=== PATIENT | female | born 1960 | race African-American/Black ===

== ENCOUNTER 2016-12-16 12:57 | Inpatient (IN) | payer OTHER ==
[2016-12-16 13:04] VITALS: BMI 31.1
--- NOTE | 2016-12-16 13:46 | PDOC ---
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 The patient has had unsteady gait and has been forgetful, which prompted the MRI. The MRI showed mass effect. The patient reports she has been recently falling. The patient has no complaints. She denies current headache, dizziness, abdominal pain, nausea, vomiting. She denies chest pain, SOB. Patient is currently undergoing chemotherapy, and her last dose was this morning. PCP: Dr. Bakari Pool Oncologist: Dr. Gerson Kiser <Cristel Salcedo - Last Filed: 12/16/16 15:14> <Geoff Bains - Last Filed: 12/16/16 15:31> - General Chief Complaint: Revisit,Radiology Variance Stated Complaint: PCP SENT Time Seen by Provider: 12/16/16 13:32 Past History <Cristel Salcedo - Last Filed: 12/16/16 15:14> - Past Medical History Anemia: Yes Asthma: No Cancer: Yes (BREAST/Brain) Cardiac Disorders: No CVA: No COPD: No CHF: No Dementia: No Diabetes: Yes GI Disorders: No Disorders: No HTN: Yes Hypercholesterolemia: No Liver Disease: No Seizures: Yes Thyroid Disease: No - Surgical History Abdominal Surgery: No Appendectomy: No Cardiac Surgery: No Cholecystectomy: No Lung Surgery: No Neurologic Surgery: Yes (brain tumor) Orthopedic Surgery: No - Immunization History Immunization Up to Date: Yes - Psycho/Social/Smoking Cessation Hx Anxiety: No Suicidal Ideation: No Smoking Status: No Smoking History: Never smoked Have you smoked in the past 12 months: No Number of Cigarettes Smoked Daily: 0 Hx Alcohol Use: No Drug/Substance Use Hx: No Substance Use Type: None Hx Substance Use Treatment: No <Geoff Bains - Last Filed: 12/16/16 15:31> - Past Medical History Allergies/Adverse Reactions: Allergies Allergy/AdvReac Type Severity Reaction Status Date / Time oxycodone HCl [From Percocet] Allergy Verified 12/16/16 13:00 Home Medications: Ambulatory Orders Losartan/Hydrochlorothiazide [Losartan-Hctz 100-25 mg Tab] 1 each PO DAILY 03/13 Levetiracetam [Keppra -] 750 mg PO BID 07/10/15 Acetaminophen [Tylenol -] 650 mg PO Q6H #30 tablet 03/22/16 Dexamethasone [Decadron -] 4 mg PO BID #30 tablet 03/22/16 Ferrous Sulfate 325 mg PO BID 03/22/16 Metformin HCl 500 mg PO BID 03/22/16 Omeprazole 20 mg PO DAILY 03/22/16 Review of Systems - Review of Systems Able to Perform ROS?: Yes Comments:: 12/16/16 13:53 GENERAL/CONSTITUTIONAL: No fever or chills. No weakness. HEAD, EYES, EARS, NOSE AND THROAT: No change in vision. No ear pain or discharge. No sore throat. CARDIOVASCULAR: No chest pain or shortness of breath. RESPIRATORY: No cough, wheezing, or hemoptysis. GASTROINTESTINAL: No nausea, vomiting, diarrhea or constipation. GENITOURINARY: No dysuria, frequency, or change in urination. MUSCULOSKELETAL: No joint or muscle swelling or pain. No neck or back pain. SKIN: No rash NEUROLOGIC: (+) recent falls. No headache, vertigo, loss of consciousness, or change in strength/sensation. ENDOCRINE: No increased thirst. No abnormal weight change. HEMATOLOGIC/LYMPHATIC: No anemia, easy bleeding, or history of blood clots. ALLERGIC/IMMUNOLOGIC: No hives or skin allergy. <Cristel Salcedo - Last Filed: 12/16/16 15:14> *Physical Exam - Vital Signs Last Vital Signs Temp Pulse Resp BP Pulse Ox 98.1 F 60 19 116/71 96 12/16/16 13:00 12/16/16 13:00 12/16/16 13:00 12/16/16 13:00 12/16/16 13:00 - Physical Exam Comments: 12/16/16 13:53 GENERAL: Awake, alert, and fully oriented, in no acute distress HEAD: No signs of trauma EYES: PERRLA, EOMI, sclera anicteric, conjunctiva clear ENT: Auricles normal inspection, hearing grossly normal, nares patent, oropharynx clear without exudates. Moist mucosa NECK: Normal ROM, supple, no lymphadenopathy, JVD, or masses LUNGS: Breath sounds equal, clear to auscultation bilaterally. No wheezes, and no crackles HEART: Regular rate and rhythm, normal S1 and S2, no murmurs, rubs or gallops ABDOMEN: Soft, nontender, normoactive bowel sounds. No guarding, no rebound. No masses EXTREMITIES: Normal range of motion, no edema. No clubbing or cyanosis. No cords, erythema, or tenderness NEUROLOGICAL: Cranial nerves II through XII grossly intact. Normal speech, unsteady gait. Dysmetria and dysdiadochokinesia. SKIN: Warm, Dry, normal turgor, no rashes or lesions noted. <Cristel Salcedo A - Last Filed: 12/16/16 15:14> - Vital Signs Last Vital Signs Temp Pulse Resp BP Pulse Ox 98.1 F 60 19 116/71 96 12/16/16 13:00 12/16/16 13:00 12/16/16 13:00 12/16/16 13:00 12/16/16 13:00 <Geoff Bains - Last Filed: 12/16/16 15:31> ED Treatment Course - LABORATORY CBC & Chemistry Diagram: 12/16/16 13:46 12/16/16 13:46 <Cristel Salcedo A - Last Filed: 12/16/16 15:14> - LABORATORY CBC & Chemistry Diagram: 12/16/16 13:46 12/16/16 13:46 <Geoff Bains - Last Filed: 12/16/16 15:31> Medical Decision Making - Medical Decision Making 12/16/16 14:[address] Gerson Kiser. [phone] 12/16/16 15:[address] Reese Freire. [phone] <Cristel Salcedo - Last Filed: 12/16/16 15:14> - Medical Decision Making 12/16/16 14:52 Discussed with patient's oncologist who does not come here to [facility] who ask that we consult Dr. [facility] and start giving oral prednisone 10 mg po q 1H 12/16/16 15:[address] Freire, 10 Decadron IV now then 4 mg IV q6H. No PO Prednisone 12/16/16 15:[address] [facility]- Agree's with Dr. Freire's Medical regimen <Geoff Bains - Last Filed: 12/16/16 15:31> *DC/Admit/Observation/Transfer - Attestations Scribe Attestion: 12/16/16 13:53 Documentation prepared by Cristel Salcedo, acting as medical office scheduler for Geoff Bains DO. <Cristel Salcedo - Last Filed: 12/16/16 15:14> - Discharge Dispostion Admit: Yes - Attestations Physician Attestion: 12/16/16 13:46 I, Dr. Geoff Bains, attest that this document has been prepared under my direction and personally reviewed by me in its entirety. I further attest, that it accurately reflects all work, treatment, procedures and medical decision -making performed by me. <Geoff Bains - Last Filed: 12/16/16 15:31> Diagnosis at time of Disposition: Cerebral edema - Discharge Dispostion Condition at time of disposition: Unchanged/Unknown - Referrals Referrals: Bakari Pool MD [Primary Care Provider] -
[2016-12-16 14:17] LABS: BASOPHIL 0.2 % (0-2.0); MCH 26.6 pg (25.7-33.7); MCHC 32.8 g/dl (32.0-36.0); MEAN CELL VOLUME 80.9 fl (80-96); MEAN PLT VOLUME 9.1 fl (7.5-11.1); NEUTROPHILS 88.5 % (42.8-82.8); RDW 18.5 % (11.6-15.6); WHITE BLOOD COUNT 8.8 K/mm3 (4.0-10.0)
[2016-12-16 14:48] LABS: INR 1.04 (0.82-1.09); PROTHROMBIN TIME (PATIENT) 11.5 SEC (9.98-11.88)
[2016-12-16] MEDS ORDERED: predniSONE 10 MG TABLET (UD) PO ONE (14:53)
[2016-12-16 14:57] LABS: ALBUMIN 3.2 g/dl (3.4-5.0); ALK PHOS 142 U/L (45-117); ANION GAP 10 (8-16); BILIRUBIN,TOTAL 0.7 mg/dL (0.2-1.0); CALCIUM 8.9 mg/dL (8.5-10.1); CO2 30 mmol/L (21-32); SGPT/ALT 23 U/L (12-78); TOT PROT 6.8 g/dl (6.4-8.2)
[2016-12-16 15:05] LABS: GLUCOSE,RANDOM 361 mg/dL (74-106); SGOT/AST 32 U/L (15-37)
[2016-12-16] MEDS ORDERED: predniSONE 10 MG TABLET (UD) ONE (15:05)
[2016-12-16] MEDS ORDERED: DEXAMETHASONE SOD PHOSPHATE 10 MG/1 ML VIAL IVPUSH ONE (15:16)
[2016-12-16] MEDS ORDERED: DEXAMETHASONE SOD PHOSPHATE 10 MG/1 ML VIAL ONE (15:27)
[2016-12-16 15:37] LABS: PLATELET COUNT 76 K/MM3 (134-434)
[2016-12-16 15:38] LABS: PLATELET ESTIMATE DECREASED (NORMAL)
[2016-12-16] MEDS ORDERED: ONDANSETRON 4 MG/2 ML VIAL IVPB PRN (17:24)
[2016-12-16] MEDS ORDERED: ACETAMINOPHEN 325 MG TABLET (FP) PO PRN (17:24)
--- NOTE | 2016-12-16 17:28 | CONSULT ---
Consult Consult Specialty:: Oncology-hematology Referred by:: Angle Galindo Reason for Consultation:: Breast ca with CLINICAL NURSE OCCUPATIONAL MEDICINE mets - History of Present Illness Chief Complaint: History of invasive ductal ca diagnosed in 2013. ER-, [place]-, Her- 2 positive, Treated with chemotherapy and herceptin. In 2015, developed CLINICAL NURSE OCCUPATIONAL MEDICINE mets treated with stereotactic radiosurgery. Followed by Dr. Kiser. Recently on Xeloda and lapatinib. Presented with headache, falling, unsteadiness and MRI with vasogenic edema and CLINICAL NURSE OCCUPATIONAL MEDICINE mets. - History Source History Provided By: Patient, Medical Record Limitations to Obtaining History: Poor Historian - Past Medical History CLINICAL NURSE OCCUPATIONAL MEDICINE: Yes: Other (CLINICAL NURSE OCCUPATIONAL MEDICINE mets in 2015- treated with stereotactic RT) Cardio/Vascular: Yes: HTN Endocrine: Yes: Diabetes Mellitus - Past Surgical History Past Surgical History: Yes: Breast Biopsy, - Alcohol/Substance Use Hx Alcohol Use: No - Smoking History Smoking history: Never smoked Have you smoked in the past 12 months: No Aproximately how many cigarettes per day: 0 - Social History Usual Living Arrangement: With Spouse 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 Place of : [place]year[place] years earlier from [place] , [place] Home Medications - Allergies Allergies/Adverse Reactions: Allergies Allergy/AdvReac Type Severity Reaction Status Date / Time oxycodone HCl [From Percocet] Allergy Verified 12/16/16 13:00 - Home Medications Home Medications: Ambulatory Orders Losartan/Hydrochlorothiazide [Losartan-Hctz 100-25 mg Tab] 1 each PO DAILY 03/13 Acetaminophen [Tylenol -] 650 mg PO Q6H #30 tablet 03/22/16 Ferrous Sulfate 325 mg PO BID 03/22/16 Omeprazole 20 mg PO DAILY 03/22/16 Capecitabine 1,000 mg PO BID 12/16/16 Dexamethasone [Decadron -] 4 mg PO TID 12/16/16 Lapatinib Ditosylate [Tykerb] 1,250 mg PO DAILY 12/16/16 Family Disease History - Family Disease History Family Disease History: Other: Grandparent (asthma), Father ( of unknown cause), Mother (htn), Brother (3B healthy and living), Sister (4S healthy and living) Other Family History: No family history of breast or ovarian ca Review of Systems - Review of Systems Constitutional: reports: Weakness. denies: Diaphoresis, Lethargy, Night Sweats , Unintentional Wgt. Loss Eyes: denies: Double Vision, Photophobia, Recent Change in Vision HENT: denies: Epistaxis, Throat Pain Neck: denies: Pain on Movement, Stiffness Cardiovascular: denies: Chest Pain, Shortness of Breath Respiratory: denies: SOB, SOB on Exertion Gastrointestinal: reports: Diarrhea. denies: Nausea, Vomiting Genitourinary: denies: Burning, Dysuria, Flank Pain Breasts: reports: Lumps, Other (Right breast ca diagnosed in 2013) Neurological: reports: Headache, Numbness, Parasthesia, Unsteady Gait Endocrine: reports: No Symptoms Hematology/Lymphatic: reports: No Symptoms Psychiatric: reports: No Symptoms Physical Exam Vital Signs: Vital Signs Temperature 98.8 F 12/16/16 17:00 Pulse Rate 48 L 12/16/16 17:00 Respiratory Rate 15 12/16/16 17:00 Blood Pressure 140/86 12/16/16 17:00 O2 Sat by Pulse Oximetry (%) 96 12/16/16 17:00 Constitutional: Yes: No Distress Eyes: Yes: PERRL. No: Diplopia, Ptosis, Sclera Icterus HENT: No: Hoarseness, Pharyngeal Erythema, Thrush Neck: Yes: Trachea Midline. No: Decreased ROM, Lymphadenopathy, Thyromegaly Cardiovascular: Yes: Regular Rate and Rhythm Respiratory: Yes: CTA Bilaterally Gastrointestinal: Yes: Normal Bowel Sounds, Soft. No: Hepatomegaly, Splenomegaly Renal/: No: CVA Tenderness - Left, CVA Tenderness - Right Breast(s): Yes: Right, Other (nodular masses 6:00 below nipple; no right breast masses ; no axillary nodes) Musculoskeletal: No: Back Pain, Muscle Pain Extremities: No: Calf Tenderness Peripheral Pulses WNL: No Integumentary: No: Bruising, Erythema, Rash Neurological: Yes: Numbness, Unsteady Gait, Weakness ...Motor Strength: WNL Problem List - Problems (1) Breast CA Assessment/Plan: [id number]- menarche age 13, menopause 5 years ago, age 51. First child age 21. Breast fed all children. One child breast feeding> 1 year. Others 3-6 months. No hormones or B.C. In 2013 dx with right breast invasive ductal ca --ER-, Pr-, Her-2 positive. Treated with chemotherapy and presumably herceptin. In 2014, brain mets---according to patient had radiosurgery. Recently on Xeloda-1000 mg BID and lapatinib - 5 tabs/day. Developed unsteadiness, falling, headache and MRI with edema and brain mets. Admitted On physical --nodular masses 6:00 right breast \Would continue Xeloda-1000 mg BID and Lapatinib 125 mg --5 tabs per day Given decadron 10 mg IV loading and 4 mg q6h. -- would continue 4 mg q 6h. Needs f/u RT and Neurosurgical consult. If patient indeed had stereotactic radiosurgery , she will be a candidate for whole brain RT. Would hold off a/c for now and use compression boots . Would consider anti seizure meds per neurology. Code(s): C50.919 - MALIGNANT NEOPLASM OF UNSP SITE OF UNSPECIFIED FEMALE BREAST Qualifiers: Breast location: overlapping sites of breast Laterality: right Qualified Code(s): C50.811 - Malignant neoplasm of overlapping sites of right female breast; Z17.0 - Estrogen receptor positive status [ER+] (2) Diabetes Assessment/Plan: Will need coverage on decadron. Code(s): E11.9 - TYPE 2 DIABETES MELLITUS WITHOUT COMPLICATIONS Qualifiers: Diabetes mellitus type: type 2 Diabetes mellitus complication status: without complication Qualified Code(s): E11.9 - Type 2 diabetes mellitus without complications
[2016-12-16] MEDS ORDERED: DEXAMETHASONE SOD PHOSPHATE 4 MG/1 ML VIAL IVPB SCH (17:30)
[2016-12-16] MEDS ORDERED: POTASSIUM CHLORIDE TABS 20 MEQ TABLET.ER (FP) PO ONE (17:31)
[2016-12-16] MEDS ORDERED: PATIENT'S OWN MEDICATION (NON-FORMULARY) (Losartan/Hydrochlorothiazide [Losartan-Hctz 100- PO SCH (17:45)
[2016-12-16] MEDS ORDERED: INSULIN (NOVOLOG) ASPART 100 UNITS/ML 10ML VIAL ONE ×2 (18:02→18:27)
[2016-12-16 18:11] LABS: URINE APPEARANCE CLEAR; URINE BILIRUBIN NEGATIVE (NEGATIVE); URINE BLOOD NEGATIVE (NEGATIVE); URINE COLOR STRAW; URINE GLUCOSE (UA) 3+ (NEGATIVE); URINE KETONE NEGATIVE (NEGATIVE); URINE LEUK ESTERASE NEGATIVE (NEGATIVE); URINE NITRITE NEGATIVE (NEGATIVE); URINE PROTEIN NEGATIVE (NEGATIVE); URINE UROBILINOGEN NEGATIVE mg/dL (0.2-1.0)
[2016-12-16] MEDS: INSULIN SLIDING SCALE (NOVOLOG) 1 VIAL SQ SCH ×2 (18:11→23:30)
[2016-12-16] MEDS: PANTOPRAZOLE 20 MG TABLET (FP) PO SCH (18:19)
[2016-12-16] MEDS: HYDROCHLOROTHIAZIDE 25 MG TABLET (FP) PO SCH (18:19)
[2016-12-16] MEDS: LOSARTAN POTASSIUM 50 MG TABLET (FP) PO SCH (18:19)
[2016-12-16] MEDS ORDERED: INSULIN DETEMIR 100 UNITS/ML MDV SQ SCH (22:00)
[2016-12-16] MEDS ORDERED: CHLORHEXIDINE GLUCONATE 4% CLEANSER FOR DECOLONIZATION TP SCH (22:00)
--- NOTE | 2016-12-16 22:18 | CONSULT ---
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 She reported that she has been falling recently. She denied current headache, dizziness, abdominal pain, nausea, vomiting. She denied chest pain, SOB. Patient is currently on Herceptin and her last dose was this morning. She was seen by oncology who started her on decadron. She was transferred to ICU for monitoring. 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 RT) Cardio/Vascular: Yes: HTN Endocrine: Yes: Diabetes Mellitus - Past Surgical History Past Surgical History: Yes: Breast Biopsy, - Alcohol/Substance Use Hx Alcohol Use: No - Smoking History Smoking history: Never smoked Have you smoked in the past 12 months: No Aproximately how many cigarettes per day: 0 - Social History Usual Living Arrangement: With Spouse ADL: Support Services 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 History of Recent Travel: No Home Medications - Allergies Allergies/Adverse Reactions: Allergies Allergy/AdvReac Type Severity Reaction Status Date / Time oxycodone HCl [From Percocet] Allergy Verified 12/16/16 13:00 - Home Medications Home Medications: Ambulatory Orders Losartan/Hydrochlorothiazide [Losartan-Hctz 100-25 mg Tab] 1 each PO DAILY 03/13 Acetaminophen [Tylenol -] 650 mg PO Q6H #30 tablet 03/22/16 Ferrous Sulfate 325 mg PO BID 03/22/16 Omeprazole 20 mg PO DAILY 03/22/16 Capecitabine 1,000 mg PO BID 12/16/16 Dexamethasone [Decadron -] 4 mg PO TID 12/16/16 Lapatinib Ditosylate [Tykerb] 1,250 mg PO DAILY 12/16/16 Family Disease History - Family Disease History Family History: Unremarkable Family Disease History: Other: Grandparent (asthma), Father ( of unknown cause), Mother (htn), Brother (3B healthy and living), Sister (4S healthy and living) Other Family History: No family history of breast or ovarian ca Physical Exam Vital Signs: Vital Signs Temperature 98.8 F 12/16/16 17:00 Pulse Rate 45 L 12/16/16 18:00 Respiratory Rate 15 12/16/16 18:00 Blood Pressure 131/82 12/16/16 18:00 O2 Sat by Pulse Oximetry (%) 96 12/16/16 17:00 Constitutional: Yes: Well Nourished, Calm Eyes: Yes: WNL, Conjunctiva Clear, EOM Intact, PERRL HENT: Yes: Normocephalic Neck: Yes: WNL, Supple, Trachea Midline Cardiovascular: Yes: Regular Rate and Rhythm, Bradycardia Respiratory: Yes: Regular, CTA Bilaterally Gastrointestinal: Yes: Soft, Other (ND,NT; + BS) Renal/: Yes: WNL Musculoskeletal: Yes: WNL Extremities: Yes: WNL Edema: No Peripheral Pulses WNL: Yes Integumentary: Yes: WNL Neurological: Yes: Alert, Oriented ...Motor Strength: WNL Psychiatric: Yes: WNL, Alert, Oriented Labs: CBC,CMP WBC 8.8 K/mm3 (4.0-10.0) D 12/16/16 13:46 RBC 4.03 M/mm3 (3.60-5.2) 12/16/16 13:46 Hgb 10.7 GM/dL (10.7-15.3) D 12/16/16 13:46 Hct 32.6 % (32.4-45.2) 12/16/16 13:46 MCV 80.9 fl (80-96) 12/16/16 13:46 MCH 26.6 pg (25.7-33.7) D 12/16/16 13:46 MCHC 32.8 g/dl (32.0-36.0) 12/16/16 13:46 RDW 18.5 % (11.6-15.6) H D 12/16/16 13:46 Plt Count 76 K/MM3 (134-434) L D 12/16/16 13:46 MPV 9.1 fl (7.5-11.1) D 12/16/16 13:46 Neutrophils % 88.5 % (42.8-82.8) H D 12/16/16 13:46 Lymphocytes % 6.8 % (8-40) L D 12/16/16 13:46 Monocytes % 4.5 % (3.8-10.2) 12/16/16 13:46 Eosinophils % 0.0 % (0-4.5) D 12/16/16 13:46 Basophils % 0.2 % (0-2.0) 12/16/16 13:46 Platelet Estimate Decreased (NORMAL) 12/16/16 13:46 Platelet Comment No clumping noted 12/16/16 13:46 Sodium 130 mmol/L (136-145) L 12/16/16 13:46 Potassium 3.3 mmol/L (3.5-5.1) L 12/16/16 13:46 Chloride 90 mmol/L (98-107) L D 12/16/16 13:46 Carbon Dioxide 30 mmol/L (21-32) 12/16/16 13:46 Anion Gap 10 (8-16) 12/16/16 13:46 BUN 24 mg/dL (7-18) H D 12/16/16 13:46 Creatinine 1.0 mg/dL (0.55-1.02) D 12/16/16 13:46 Creat Clearance w eGFR 57.15 (>60) 12/16/16 13:46 Random Glucose 361 mg/dL (74-106) H* D 12/16/16 13:46 Calcium 8.9 mg/dL (8.5-10.1) 12/16/16 13:46 Total Bilirubin 0.7 mg/dL (0.2-1.0) D 12/16/16 13:46 AST 32 U/L (15-37) D 12/16/16 13:46 ALT 23 U/L (12-78) D 12/16/16 13:46 Alkaline Phosphatase 142 U/L (45-117) H 12/16/16 13:46 Total Protein 6.8 g/dl (6.4-8.2) 12/16/16 13:46 Albumin 3.2 g/dl (3.4-5.0) L 12/16/16 13:46 Active Medications Acetaminophen (Tylenol -) 650 mg PO Q6H PRN PRN Reason: FEVER OR PAIN Capecitabine (Xeloda -) 1,000 mg PO BID JD Chlorhexidine Gluconate (Hibiclens For Decolonization -) 1 applic TP HS [facility] Dexamethasone Sodium Phosphate (Decadron Injection -) 4 mg IVPB Q6H-IV JD Ferrous Sulfate (Feosol -) 325 mg PO BID [facility] Hydrochlorothiazide (Hctz -) 25 mg PO DAILY [facility] Last Admin: 12/16/16 18:19 Dose: 25 mg Insulin Aspart (Novolog Vial Sliding Scale -) 0 vial SQ ACHS JD PRN Reason: Protocol Last Admin: 12/16/16 18:11 Dose: 6 units Insulin Detemir (Levemir Vial) 20 units SQ HS [facility] Losartan Potassium (Cozaar -) 100 mg PO DAILY [facility] Last Admin: 12/16/16 18:19 Dose: 100 mg Mupirocin (Bactroban Ointment (For Decolonization) -) 1 applic NS BID [facility] Stop: 12/21/16 21:59 Pt's Own Med (Non- Form) (Lapatinib Ditosylate [Tykerb] 1,250 Mg) 1,250 mg PO DAILY [facility] Ondansetron HCl (Zofran Injection) 4 mg IVPB Q6H PRN PRN Reason: NAUSEA Pantoprazole Sodium (Protonix -) 20 mg PO DAILY [facility] Last Admin: 12/16/16 18:19 Dose: 20 mg Problem List - Problems (1) Cerebral edema Code(s): G93.6 - CEREBRAL EDEMA (2) Breast CA Code(s): C50.919 - MALIGNANT NEOPLASM OF UNSP SITE OF UNSPECIFIED FEMALE BREAST Qualifiers: Breast location: overlapping sites of breast Laterality: right (3) Diabetes Code(s): E11.9 - TYPE 2 DIABETES MELLITUS WITHOUT COMPLICATIONS Qualifiers: Diabetes mellitus type: type 2 Diabetes mellitus complication status: without complication (4) Dizziness Code(s): R42 - DIZZINESS AND GIDDINESS (5) Headache Code(s): R51 - HEADACHE (6) Hypertension Code(s): I10 - ESSENTIAL (PRIMARY) HYPERTENSION (7) Intracranial mass Code(s): R90.0 - INTCRN SPACE-OCCUPYING LESION FOUND ON DX IMAGING OF CNSL Assessment/Plan 56 year old female with a PMHx of 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 She was started on decadron and transferred to ICU for monitoring. Plan: Neuro/Heme: Breast Ca with brain mets, thrombocytopenia -Neuro checks -Continue decadron as per oncology -Oral chemo Xeloda and Tykerb -Fingersticks q6 with decadron -Insulin coverage -Hold heparin for now insetting of low platelets -Venodynes
[2016-12-16] MEDS: DEXAMETHASONE SOD PHOSPHATE 4 MG/1 ML VIAL IVPB SCH (23:29)
[2016-12-16] MEDS: [UNRECOGNIZED DRUG - REMARK] PO SCH (23:29)
[2016-12-16] MEDS: FERROUS SO4 325 MG TABLET (FP) PO SCH (23:29)
[2016-12-16] MEDS: MUPIROCIN 2% TOPICAL OINTMENT FOR DECOLONIZATION NS SCH (23:29)
[2016-12-16] MEDS: CAPECITABINE 500 MG TABLET PO SCH (23:31)
--- NOTE | 2016-12-17 01:37 | HP ---
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) Cardiovascular: Yes: HTN Heme/Onc: Yes: Cancer (breast cancer-invasive ductal poorly differenciated with necrosis 12/03) Endocrine: Yes: Diabetes Mellitus - Past Surgical History Past Surgical History: Yes: Breast Biopsy, - Smoking History Smoking history: Never smoked Have you smoked in the past 12 months: No Aproximately how many cigarettes per day: 0 - Alcohol/Substance Use Hx Alcohol Use: No - Social History ADL: Support Services 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 History of Recent Travel: No Home Medications - Allergies Allergies/Adverse Reactions: Allergies Allergy/AdvReac Type Severity Reaction Status Date / Time oxycodone HCl [From Percocet] Allergy Verified 12/16/16 13:00 - Home Medications Home Medications: Ambulatory Orders Losartan/Hydrochlorothiazide [Losartan-Hctz 100-25 mg Tab] 1 each PO DAILY 03/13 Acetaminophen [Tylenol -] 650 mg PO Q6H #30 tablet 03/22/16 Ferrous Sulfate 325 mg PO BID 03/22/16 Omeprazole 20 mg PO DAILY 03/22/16 Capecitabine 1,000 mg PO BID 12/16/16 Dexamethasone [Decadron -] 4 mg PO TID 12/16/16 Lapatinib Ditosylate [Tykerb] 1,250 mg PO DAILY 12/16/16 Family Disease History - Family Disease History Family Disease History: Other: Grandparent (asthma), Father ( of unknown cause), Mother (htn), Brother (3B healthy and living), Sister (4S healthy and living) Other Family History: No family history of breast or ovarian ca Physical Examination Vital Signs: Vital Signs Temperature 98.8 F 12/16/16 17:00 Pulse Rate 45 L 12/16/16 18:00 Respiratory Rate 15 12/16/16 18:00 Blood Pressure 131/82 12/16/16 18:00 O2 Sat by Pulse Oximetry (%) 96 12/16/16 17:00
[2016-12-17] MEDS: DEXAMETHASONE SOD PHOSPHATE 4 MG/1 ML VIAL IVPB SCH ×4 (04:00→21:54)
[2016-12-17 06:45] LABS: ALBUMIN 2.7 g/dl (3.4-5.0); ANION GAP 9 (8-16); BILIRUBIN,TOTAL 0.5 mg/dL (0.2-1.0); CALCIUM 8.7 mg/dL (8.5-10.1); CO2 30 mmol/L (21-32); SGOT/AST 14 U/L (15-37); SGPT/ALT 21 U/L (12-78); TOT PROT 5.9 g/dl (6.4-8.2)
[2016-12-17 06:46] LABS: ALK PHOS 130 U/L (45-117)
[2016-12-17 06:53] LABS: GLUCOSE,RANDOM 325 mg/dL (74-106); MCH 25.9 pg (25.7-33.7); MCHC 32.1 g/dl (32.0-36.0); MEAN CELL VOLUME 80.7 fl (80-96); MEAN PLT VOLUME 8.5 fl (7.5-11.1); NEUTROPHILS 86.7 % (42.8-82.8); PLATELET COUNT 215 K/MM3 (134-434); RDW 18.2 % (11.6-15.6); WHITE BLOOD COUNT 7.1 K/mm3 (4.0-10.0)
[2016-12-17] MEDS: INSULIN SLIDING SCALE (NOVOLOG) 1 VIAL SQ SCH ×4 (07:01→22:03)
--- NOTE | 2016-12-17 09:10 | PN ---
Progress Note (short form) - Note Progress Note: PULM/CRITICAL CARE MEDICINE FOLLOW UP: Pt seen and examined in the ICU 24 Hour Events: -Admitted to ICU last night. Started on Dexamethasone. Stable. Current Medications Acetaminophen (Tylenol -) 650 mg PO Q6H PRN PRN Reason: FEVER OR PAIN Capecitabine (Xeloda -) 1,000 mg PO BID [facility] Last Admin: 12/16/16 23:31 Dose: 1,000 mg Chlorhexidine Gluconate (Hibiclens For Decolonization -) 1 applic TP HS [facility] Last Admin: 12/16/16 23:30 Dose: 1 applic Dexamethasone Sodium Phosphate (Decadron Injection -) 4 mg IVPB Q6H-IV [facility] Last Admin: 12/17/16 04:00 Dose: 4 mg Ferrous Sulfate (Feosol -) 325 mg PO BID [facility] Last Admin: 12/16/16 23:29 Dose: 325 mg Hydrochlorothiazide (Hctz -) 25 mg PO DAILY [facility] Last Admin: 12/16/16 18:19 Dose: 25 mg Insulin Aspart (Novolog Vial Sliding Scale -) 0 vial SQ ACHS [facility] PRN Reason: Protocol Last Admin: 12/17/16 07:01 Dose: 10 units Insulin Detemir (Levemir Vial) 20 units SQ HS [facility] Last Admin: 12/16/16 23:30 Dose: 20 units Losartan Potassium (Cozaar -) 100 mg PO DAILY [facility] Last Admin: 12/16/16 18:19 Dose: 100 mg Mupirocin (Bactroban Ointment (For Decolonization) -) 1 applic NS BID [facility] Stop: 12/21/16 21:59 Last Admin: 12/16/16 23:29 Dose: Not Given Pt's Own Med (Non- Form) (Lapatinib Ditosylate [Tykerb] 1,250 Mg) 1,250 mg PO DAILY [facility] Last Admin: 12/16/16 23:29 Dose: 1,250 mg Ondansetron HCl (Zofran Injection) 4 mg IVPB Q6H PRN PRN Reason: NAUSEA Pantoprazole Sodium (Protonix -) 20 mg PO DAILY [facility] Last Admin: 12/16/16 18:19 Dose: 20 mg Vital Signs Temp 98 F 12/17/16 00:00 Pulse 55 L 12/17/16 06:00 Resp 18 12/17/16 06:00 BP 126/73 12/17/16 06:00 Pulse Ox 96 12/16/16 17:00 Intake & Output 12/16/16 12/17/16 12/17/16 18:59 06:59 18:59 Intake Total 450 500 Balance 450 500 Weight 88.451 kg Intake: Oral 450 500 Other: Voiding Method Toilet Toilet # Unmeasured Voids Void 1 2 Height 5 ft 6 in Body Mass Index (BMI) 31.1 Weight Measurement Method Built in [facility] Weight Measurement Method Est/Stated by Patient EXAM: neuro: alert, oriented, non-focal HEENT: PERRL, MMM lungs: clear heart: RRR abd: soft, non-tender ext: no edema, warm, good pulses skin: warm, dry CBC, BMP 12/17/16 05:20 12/17/16 05:20 Problem List - Problems (1) Cerebral edema Code(s): G93.6 - CEREBRAL EDEMA (2) Breast CA Code(s): C50.919 - MALIGNANT NEOPLASM OF UNSP SITE OF UNSPECIFIED FEMALE BREAST Qualifiers: Breast location: overlapping sites of breast Laterality: right (3) Diabetes Code(s): E11.9 - TYPE 2 DIABETES MELLITUS WITHOUT COMPLICATIONS Qualifiers: Diabetes mellitus type: type 2 Diabetes mellitus complication status: without complication (4) Dizziness Code(s): R42 - DIZZINESS AND GIDDINESS (5) Headache Code(s): R51 - HEADACHE (6) Hypertension Code(s): I10 - ESSENTIAL (PRIMARY) HYPERTENSION (7) Intracranial mass Code(s): R90.0 - INTCRN SPACE-OCCUPYING LESION FOUND ON DX IMAGING OF CNSL Assessment/Plan 56 year old female with a PMHx of 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 She was started on decadron and transferred to ICU for monitoring. Plan: -Neuro checks -Continue decadron as per oncology -Oral chemo Xeloda and Tykerb -Repeat imaging per neuro -?seizure ppx -Fingersticks/Insulin with decadron -Insulin coverage -Hold heparin - restart if ok with neuro -Venodynes Transfer to the floor today Brijesh Borges Pulm/Critical Care [employer] [employer] [id number]
[2016-12-17] MEDS: FERROUS SO4 325 MG TABLET (FP) PO SCH ×2 (09:35→21:54)
[2016-12-17] MEDS: PANTOPRAZOLE 20 MG TABLET (FP) PO SCH (09:35)
[2016-12-17] MEDS: HYDROCHLOROTHIAZIDE 25 MG TABLET (FP) PO SCH (09:36)
[2016-12-17] MEDS: LOSARTAN POTASSIUM 50 MG TABLET (FP) PO SCH (09:36)
[2016-12-17] MEDS: [UNRECOGNIZED DRUG - REMARK] PO SCH (09:36)
[2016-12-17] MEDS: CAPECITABINE 500 MG TABLET PO SCH ×2 (09:37→22:03)
[2016-12-17] MEDS: MUPIROCIN 2% TOPICAL OINTMENT FOR DECOLONIZATION NS SCH (13:35)
--- NOTE | 2016-12-17 15:48 | PN ---
Progress Note (short form) - Note Progress Note: Oncology follow-up note S- patient feels well today with no complaints. She does not have any headaches , tingling , numbness etc Last Vital Signs Temp Pulse Resp BP Pulse Ox 99.2 F 55 L 15 123/62 99 12/17/16 14:00 12/17/16 14:00 12/17/16 14:00 12/17/16 14:00 12/17/16 09:00 AOx3, Pleasant, alert, awake CTA(BL) S1S2 wnl Soft abdomen No focal neurological deficits on exam CBC, BMP 12/17/16 05:20 12/17/16 05:20 Current Medications Generic Name Dose Route Start Last Admin Trade Name Freq PRN Reason Stop Dose Admin Acetaminophen 650 mg 12/16/16 17:24 Tylenol - PO Q6H PRN FEVER OR PAIN Capecitabine 1,000 mg 12/16/16 22:00 12/17/16 09:37 Xeloda - PO 1,000 mg BID JD Administration Chlorhexidine Gluconate 1 applic 12/16/16 22:00 12/16/16 23:30 Hibiclens For Decolonization - TP 1 applic HS JD Administration Dexamethasone Sodium Phosphate 4 mg 12/16/16 21:00 12/17/16 14:29 Decadron Injection - IVPB 4 mg Q6H-IV JD Administration Ferrous Sulfate 325 mg 12/16/16 22:00 12/17/16 09:35 Feosol - PO 325 mg BID JD Administration Hydrochlorothiazide 25 mg 12/16/16 17:45 12/17/16 09:36 Hctz - PO 25 mg DAILY JD Administration Insulin Aspart 0 vial 12/16/16 18:00 12/17/16 12:20 Novolog Vial Sliding Scale - SQ 8 units ACHS JD Administration Protocol Insulin Detemir 20 units 12/16/16 22:00 12/16/16 23:30 Levemir Vial SQ 20 units HS JD Administration Losartan Potassium 100 mg 12/16/16 17:45 12/17/16 09:36 Cozaar - PO 100 mg DAILY JD Administration Mupirocin 1 applic 12/16/16 22:00 12/17/16 13:35 Bactroban Ointment (For Decolonization) - NS 12/21/16 21:59 1 applic BID JD Administration Pt's Own Med (Non- 1,250 mg 12/16/16 17:45 12/17/16 09:36 Form) (Lapatinib PO 1,250 mg Ditosylate [Tykerb] DAILY JD Administration 1,250 Mg) Ondansetron HCl 4 mg 12/16/16 17:24 Zofran Injection IVPB Q6H PRN NAUSEA Pantoprazole Sodium 20 mg 12/16/16 17:45 12/17/16 09:35 Protonix - PO 20 mg DAILY JD Administration A/P :56 y/o female with metastatic breast cancer currently on xeloda + lapatinib as an outpatient, Hx of brain mets in 2014 that were treated with stereotactic surgery. -patient neurologically stable -continue decadron at 4 mg q6h -antiseizure meds per neurology -continue outpatient chemo meds which are taken in pill form -recommend Rad Onc consult for whole brain RT -recommend neurosurgery consult -will continue to follow closely -hold off DVT prophylaxis with AC for now
--- NOTE | 2016-12-17 17:06 | CONSULT ---
Consult - text type - Consultation Consultation Note: NEUROLOGY CONSULTATION is greatly appreciated: This 56 yo RH woman with h/o HTN, Diabetes, GERD, is maintained on losartan, metformin, omeprazole. Known metastatic breast CA- on ongoing ChemoRx, last dose this past week. S/P R parietal craniectomy 2014 for tumor. Received RT at that time. On Levitiracetam 750 BID for seizure prophylaxis. Now admitted after few weeks of unsteady gait, falling and confusion. MRI of the brain (12/14/16) shows what is most likely multiple brain metastases, especially in the Right posterior tempero- parietal region with extensive edema and R to left shift. Pt claims she is steadier on her feet after Decadron Bolus Rx. Denies headache. GPR: Alopecia. Neck supple. No bruits. NEURO: Awake, alert, O x 3. Speech fluent. CN: Dense left homonomous hemianopsia. Min R facial. Decreased tongue BRIJESH's. Gag OK Motor: Min. R drift. Normal strength. Brisk reflexes. Toes downgoing. Decreased BRIJESH's B/L. Coord: No obvious dystaxia Sensory: Feels touch and pin throughout. IMP: Multiple Brain metastases with mass effect on the right side and Left homonomous hemianopsia. SUGGEST: Continue decadron 4 mg q 6 hrs. Consult radiation oncology nancy: former dose of RT and potential for retreatment. Prognosis guarded. Thank you very much, Reese Freire MD
[2016-12-17] MEDS ORDERED: INSULIN (NOVOLOG) ASPART 100 UNITS/ML 10ML VIAL SQ ONE (18:00)
[2016-12-17] MEDS ORDERED: ONDANSETRON 4 MG/2 ML VIAL IVPB PRN (18:11)
[2016-12-17] MEDS ORDERED: ACETAMINOPHEN 325 MG TABLET (FP) PO PRN (18:11)
[2016-12-17] MEDS ORDERED: PT OWN MED DRAWER 7, Y5N ONE (21:44)
[2016-12-17] MEDS ORDERED: CHLORHEXIDINE GLUCONATE 4% CLEANSER FOR DECOLONIZATION TP SCH (22:00)
[2016-12-17] MEDS ORDERED: MUPIROCIN 2% TOPICAL OINTMENT FOR DECOLONIZATION NS SCH (22:00)
[2016-12-17] MEDS: INSULIN DETEMIR 100 UNITS/ML MDV SQ SCH (22:03)
[2016-12-17] MEDS ORDERED: INSULIN (NOVOLOG) ASPART 100 UNITS/ML 10ML VIAL ONE (22:05)
[2016-12-18] MEDS: DEXAMETHASONE SOD PHOSPHATE 4 MG/1 ML VIAL IVPB SCH ×4 (02:29→22:01)
[2016-12-18] MEDS: INSULIN SLIDING SCALE (NOVOLOG) 1 VIAL SQ SCH ×4 (06:40→22:05)
[2016-12-18] MEDS: LOSARTAN POTASSIUM 50 MG TABLET (FP) PO SCH (09:35)
[2016-12-18] MEDS: FERROUS SO4 325 MG TABLET (FP) PO SCH ×2 (09:35→22:01)
[2016-12-18] MEDS: PANTOPRAZOLE 20 MG TABLET (FP) PO SCH (09:36)
[2016-12-18] MEDS: HYDROCHLOROTHIAZIDE 25 MG TABLET (FP) PO SCH (09:36)
[2016-12-18] MEDS: LAPATINIB DITOSYLATE PO SCH (09:36)
[2016-12-18] MEDS: CAPECITABINE 500 MG TABLET PO SCH ×2 (09:37→22:06)
--- NOTE | 2016-12-18 10:18 | PN ---
Progress Note (short form) - Note Progress Note: PULMONARY/POST-ICU APPEARS STABLE OFFERS NO COMPLAINTS TMAX 99.9 ON STEROIDS ALOPECIA ANICTERIC CLEAR BREATH SOUNDS S1S2 BS+ NO EDEMA LABS/IMAGING/MEDS/NOTES REVIEWED LEFT SHIFT ON DIFFERENTIAL/HYPERGLYCEMIC LOW GRADE TEMP ON STEROIDS ? TUMOR ?INFECTION WILL ORDER CXR/URINE CULTURE/ONE SET BLOOD CULTURES CONTINUE TO OBSERVE CLOSELY GLYCEMIC CONTROL Donya YE MD
--- NOTE | 2016-12-18 12:49 | PN ---
Progress Note (short form) - Note Progress Note: Oncology follow-up note S- patient feels well today with no complaints. She does not have any headaches , tingling , numbness etc Last Vital Signs Temp Pulse Resp BP Pulse Ox 98.6 F 56 L 20 115/70 95 12/18/16 10:00 12/18/16 10:00 12/18/16 10:00 12/18/16 10:00 12/18/16 09:00 AOx3, PERRLA, EOMI CTA(BL) S1S2 wnl Soft abdomen No focal neurological deficits on exam CBC, BMP 12/17/16 05:20 12/17/16 18:50 Current Medications Generic Name Dose Route Start Last Admin Trade Name Freq PRN Reason Stop Dose Admin Acetaminophen 650 mg 12/17/16 18:11 Tylenol - PO Q6H PRN FEVER OR PAIN Capecitabine 1,000 mg 12/17/16 22:00 12/18/16 09:37 Xeloda - PO 1,000 mg BID JD Administration Chlorhexidine Gluconate 1 applic 12/17/16 22:00 12/17/16 23:39 Hibiclens For Decolonization - TP Not Given HS JD Dexamethasone Sodium Phosphate 4 mg 12/17/16 21:00 12/18/16 09:36 Decadron Injection - IVPB 4 mg Q6H-IV JD Administration Ferrous Sulfate 325 mg 12/17/16 22:00 12/18/16 09:35 Feosol - PO 325 mg BID JD Administration Hydrochlorothiazide 25 mg 12/18/16 10:00 12/18/16 09:36 Hctz - PO 25 mg DAILY JD Administration Insulin Aspart 1 vial 12/17/16 22:00 12/18/16 11:56 Novolog Vial Sliding Scale - SQ 6 units ACHS JD Administration Protocol Insulin Detemir 20 units 12/17/16 22:00 12/17/16 22:03 Levemir Vial SQ 20 units HS JD Administration Losartan Potassium 100 mg 12/18/16 10:00 12/18/16 09:35 Cozaar - PO 100 mg DAILY JD Administration Non-Formulary Medication 1,250 mg 12/18/16 10:00 12/18/16 09:36 Lapatinib Ditosylate [Tykerb] PO 1,250 mg DAILY JD Administration Ondansetron HCl 4 mg 12/17/16 18:11 Zofran Injection IVPB Q6H PRN NAUSEA Pantoprazole Sodium 20 mg 12/18/16 10:00 12/18/16 09:36 Protonix - PO 20 mg DAILY JD Administration A/P :56 y/o female with metastatic breast cancer currently on xeloda + lapatinib as an outpatient, Hx of brain mets in 2014 that were treated with stereotactic surgery. -patient neurologically stable -continue decadron at 4 mg q6h -antiseizure meds per neurology -continue outpatient chemo meds -Xeloda + lapatinib which are taken in pill form -per collateral Hx obtained today from - the weekend coveage for 's service (her outpatient oncologist), pt has already received stereotactic surgery as well as whole brain RT in the past , hence repeating RT may not be on the cards for her -recommend neurosurgery consult -will continue to follow closely -hold off DVT prophylaxis with AC for now -PT eval, can follow with as outpatient
[2016-12-18] MEDS: INSULIN DETEMIR 100 UNITS/ML MDV SQ SCH (22:05)
--- NOTE | 2016-12-18 23:49 | PN ---
Progress Note, Physician History of Present Illness: No new complaints - Current Medication List Current Medications: Active Medications Acetaminophen (Tylenol -) 650 mg PO Q6H PRN PRN Reason: FEVER OR PAIN Capecitabine (Xeloda -) 1,000 mg PO BID [facility] Last Admin: 12/18/16 22:06 Dose: 1,000 mg Dexamethasone Sodium Phosphate (Decadron Injection -) 4 mg IVPB Q6H-IV [facility] Last Admin: 12/18/16 22:01 Dose: 4 mg Ferrous Sulfate (Feosol -) 325 mg PO BID [facility] Last Admin: 12/18/16 22:01 Dose: 325 mg Hydrochlorothiazide (Hctz -) 25 mg PO DAILY [facility] Last Admin: 12/18/16 09:36 Dose: 25 mg Insulin Aspart (Novolog Vial Sliding Scale -) 1 vial SQ ACHS [facility] PRN Reason: Protocol Last Admin: 12/18/16 22:05 Dose: 10 units Insulin Detemir (Levemir Vial) 20 units SQ HS [facility] Last Admin: 12/18/16 22:05 Dose: 20 units Losartan Potassium (Cozaar -) 100 mg PO DAILY [facility] Last Admin: 12/18/16 09:35 Dose: 100 mg Non-Formulary Medication (Lapatinib Ditosylate [Tykerb]) 1,250 mg PO DAILY [facility] Last Admin: 12/18/16 09:36 Dose: 1,250 mg Ondansetron HCl (Zofran Injection) 4 mg IVPB Q6H PRN PRN Reason: NAUSEA Pantoprazole Sodium (Protonix -) 20 mg PO DAILY [facility] Last Admin: 12/18/16 09:36 Dose: 20 mg - Objective Vital Signs: Vital Signs Temperature 98.2 F 12/18/16 18:00 Pulse Rate 72 12/18/16 18:00 Respiratory Rate 20 12/18/16 18:00 Blood Pressure 125/65 12/18/16 18:00 O2 Sat by Pulse Oximetry (%) 95 12/18/16 09:00 Constitutional: Yes: Well Nourished Eyes: Yes: WNL HENT: Yes: WNL Neck: Yes: WNL, Supple Cardiovascular: Yes: WNL, Regular Rate and Rhythm Respiratory: Yes: WNL, Regular, CTA Bilaterally Gastrointestinal: Yes: WNL, Normal Bowel Sounds, Soft Labs: CBC, BMP 12/17/16 05:20 12/17/16 18:50 INR, PTT INR 1.04 (0.82-1.09) 12/16/16 13:46 Problem List - Problems (1) Breast CA Assessment/Plan: Metastatic lesions to brain w/ edema Cont decadron Cont keppra for seizure prophylaxis Onco/neuro consults noted NSG consult to be called Code(s): C50.919 - MALIGNANT NEOPLASM OF UNSP SITE OF UNSPECIFIED FEMALE BREAST Qualifiers: Breast location: overlapping sites of breast Laterality: right (2) Diabetes Assessment/Plan: Elevated glucose due to decadron Cont sliding scale w/ novolog Increase dose of levemir Code(s): E11.9 - TYPE 2 DIABETES MELLITUS WITHOUT COMPLICATIONS Qualifiers: Diabetes mellitus type: type 2 Diabetes mellitus complication status: without complication (3) Hypertension Assessment/Plan: Cont losartan/hctz Code(s): I10 - ESSENTIAL (PRIMARY) HYPERTENSION
[2016-12-19] MEDS ORDERED: INSULIN DETEMIR 100 UNITS/ML MDV SQ SCH (01:51)
[2016-12-19] MEDS: DEXAMETHASONE SOD PHOSPHATE 4 MG/1 ML VIAL IVPB SCH ×3 (03:14→14:43)
[2016-12-19] MEDS: INSULIN SLIDING SCALE (NOVOLOG) 1 VIAL SQ SCH ×4 (06:37→21:36)
[2016-12-19] MEDS: FERROUS SO4 325 MG TABLET (FP) PO SCH ×2 (09:18→21:33)
[2016-12-19] MEDS: LOSARTAN POTASSIUM 50 MG TABLET (FP) PO SCH (09:18)
[2016-12-19] MEDS: PANTOPRAZOLE 20 MG TABLET (FP) PO SCH (09:18)
[2016-12-19] MEDS: HYDROCHLOROTHIAZIDE 25 MG TABLET (FP) PO SCH (09:18)
[2016-12-19] MEDS: levETIRAcetam 500 MG TABLET (FP) PO SCH ×2 (09:19→21:33)
[2016-12-19] MEDS: CAPECITABINE 500 MG TABLET PO SCH ×2 (09:28→21:34)
[2016-12-19] MEDS: LAPATINIB DITOSYLATE PO SCH (09:28)
[2016-12-19] MEDS ORDERED: PT OWN MED DRAWER 7, Y5N ONE ×2 (09:30→20:52)
[2016-12-19] MEDS ORDERED: INSULIN (NOVOLOG) ASPART 100 UNITS/ML 10ML VIAL ONE (11:40)
[2016-12-19] MEDS: DEXAMETHASONE 4 MG TABLET (FP) PO SCH ×2 (15:50→21:33)
[2016-12-19] MEDS ORDERED: INSULIN (NOVOLOG) ASPART 100 UNITS/ML 10ML VIAL SQ ONE (17:30)
--- NOTE | 2016-12-19 17:53 | PN ---
Progress Note (short form) - Note Progress Note: patient feels well with no complaints. She does not have any headaches, tingling , numbness . she has no headache, wanting to go home AOx3, PERRLA, EOMI CTA(BL) S1S2 wnl Soft abdomen No focal neurological deficits on exam Last Vital Signs Temp Pulse Resp BP Pulse Ox 98.2 F 56 L 20 109/64 97 12/19/16 17:27 12/19/16 17:27 12/19/16 17:27 12/19/16 17:27 12/19/16 09:00 Current Medications Generic Name Dose Route Start Last Admin Trade Name Freq PRN Reason Stop Dose Admin Acetaminophen 650 mg 12/17/16 18:11 Tylenol - PO Q6H PRN FEVER OR PAIN Capecitabine 1,000 mg 12/17/16 22:00 12/19/16 09:28 Xeloda - PO 1,000 mg BID JD Administration Dexamethasone 4 mg 12/19/16 15:30 12/19/16 15:50 Decadron - PO Not Given Q6H JD Ferrous Sulfate 325 mg 12/17/16 22:00 12/19/16 09:18 Feosol - PO 325 mg BID JD Administration Hydrochlorothiazide 25 mg 12/18/16 10:00 12/19/16 09:18 Hctz - PO 25 mg DAILY JD Administration Insulin Aspart 1 vial 12/17/16 22:00 12/19/16 11:46 Novolog Vial Sliding Scale - SQ 10 units ACHS JD Administration Protocol Insulin Detemir 35 units 12/19/16 01:51 Levemir Vial SQ HS JD Levetiracetam 500 mg 12/19/16 10:00 12/19/16 09:19 Keppra - PO 500 mg BID JD Administration Losartan Potassium 100 mg 12/18/16 10:00 12/19/16 09:18 Cozaar - PO 100 mg DAILY JD Administration Non-Formulary Medication 1,250 mg 12/18/16 10:00 12/19/16 09:28 Lapatinib Ditosylate [Tykerb] PO 1,250 mg DAILY JD Administration Ondansetron HCl 4 mg 12/17/16 18:11 Zofran Injection IVPB Q6H PRN NAUSEA Pantoprazole Sodium 20 mg 12/18/16 10:00 12/19/16 09:18 Protonix - PO 20 mg DAILY JD Administration CBC, BMP 12/17/16 05:20 56 y/o female with metastatic breast cancer currently on xeloda + lapatinib as an outpatient, Hx of brain mets in 2014 that were treated with stereotactic surgery. -patient neurologically stable -continue decadron at 4 mg q6h, changed to PO,close monitoring of sugars needed. -antiseizure meds per neurology -continue outpatient chemo meds -Xeloda + lapatinib PO -per collateral Hx as per , pt has already received stereotactic surgery as well as whole brain RT in the past -will continue to follow closely -hold off DVT prophylaxis with AC for now -PT eval - can follow with as outpatient
--- NOTE | 2016-12-19 22:19 | PN ---
Progress Note, Physician History of Present Illness: No new complaints - Current Medication List Current Medications: Active Medications Acetaminophen (Tylenol -) 650 mg PO Q6H PRN PRN Reason: FEVER OR PAIN Capecitabine (Xeloda -) 1,000 mg PO BID [facility] Last Admin: 12/19/16 21:34 Dose: 1,000 mg Dexamethasone (Decadron -) 4 mg PO Q6H [facility] Last Admin: 12/19/16 21:33 Dose: 4 mg Ferrous Sulfate (Feosol -) 325 mg PO BID [facility] Last Admin: 12/19/16 21:33 Dose: 325 mg Hydrochlorothiazide (Hctz -) 25 mg PO DAILY [facility] Last Admin: 12/19/16 09:18 Dose: 25 mg Insulin Aspart (Novolog Vial Sliding Scale -) 1 vial SQ ACHS [facility] PRN Reason: Protocol Last Admin: 12/19/16 21:36 Dose: 10 units Insulin Detemir (Levemir Vial) 35 units SQ HS [facility] Last Admin: 12/19/16 21:37 Dose: 35 units Levetiracetam (Keppra -) 500 mg PO BID [facility] Last Admin: 12/19/16 21:33 Dose: 500 mg Losartan Potassium (Cozaar -) 100 mg PO DAILY [facility] Last Admin: 12/19/16 09:18 Dose: 100 mg Non-Formulary Medication (Lapatinib Ditosylate [Tykerb]) 1,250 mg PO DAILY [facility] Last Admin: 12/19/16 09:28 Dose: 1,250 mg Ondansetron HCl (Zofran Injection) 4 mg IVPB Q6H PRN PRN Reason: NAUSEA Pantoprazole Sodium (Protonix -) 20 mg PO DAILY [facility] Last Admin: 12/19/16 09:18 Dose: 20 mg - Objective Vital Signs: Vital Signs Temperature 98.2 F 12/19/16 17:27 Pulse Rate 56 L 12/19/16 17:27 Respiratory Rate 20 12/19/16 17:27 Blood Pressure 109/64 12/19/16 17:27 O2 Sat by Pulse Oximetry (%) 97 12/19/16 09:00 Constitutional: Yes: Well Nourished HENT: Yes: WNL Neck: Yes: WNL, Supple Cardiovascular: Yes: WNL, Regular Rate and Rhythm Respiratory: Yes: WNL, Regular, CTA Bilaterally Gastrointestinal: Yes: WNL, Normal Bowel Sounds, Soft Labs: CBC, BMP 12/17/16 05:20 12/19/16 17:20 INR, PTT INR 1.04 (0.82-1.09) 12/16/16 13:46 Problem List - Problems (1) UTI (urinary tract infection) Assessment/Plan: Cont IV levaquin Code(s): N39.0 - URINARY TRACT INFECTION, SITE NOT SPECIFIED (2) Breast CA Assessment/Plan: Metastatic lesions to brain w/ edema Cont decadron Cont keppra for seizure prophylaxis Onco/neuro consults noted NSG consult Code(s): C50.919 - MALIGNANT NEOPLASM OF UNSP SITE OF UNSPECIFIED FEMALE BREAST Qualifiers: Breast location: overlapping sites of breast Laterality: right (3) Diabetes Assessment/Plan: Elevated glucose due to decadron Cont sliding scale w/ novolog Cont levemir Code(s): E11.9 - TYPE 2 DIABETES MELLITUS WITHOUT COMPLICATIONS Qualifiers: Diabetes mellitus type: type 2 Diabetes mellitus complication status: without complication (4) Hypertension Assessment/Plan: Cont losartan/hctz Code(s): I10 - ESSENTIAL (PRIMARY) HYPERTENSION
[2016-12-19] MEDS: LEVOFLOXACIN 500 MG IVPB 100 ML IVPB SCH (23:27)
[2016-12-20] MEDS: DEXAMETHASONE 4 MG TABLET (FP) PO SCH ×4 (03:24→22:26)
[2016-12-20] MEDS: INSULIN SLIDING SCALE (NOVOLOG) 1 VIAL SQ SCH ×4 (06:04→23:25)
[2016-12-20 08:11] LABS: BASOPHIL 0.4 % (0-2.0); MCH 26.6 pg (25.7-33.7); MCHC 33.2 g/dl (32.0-36.0); MEAN CELL VOLUME 80.2 fl (80-96); MEAN PLT VOLUME 8.6 fl (7.5-11.1); NEUTROPHILS 89.8 % (42.8-82.8); PLATELET COUNT 162 K/MM3 (134-434); RDW 17.6 % (11.6-15.6); WHITE BLOOD COUNT 9.2 K/mm3 (4.0-10.0)
--- NOTE | 2016-12-20 08:17 | PN ---
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 s/p R parietal craniotomy (2014) followed by adjuvant gamma knife tx for brain mets and XRT to LS spine, maintenance chemo presents with possible sz and fall from bed; Hyperglycemia No H/A, N/V, diplopia PE: AF, VSS HEENT- NC/AT, R parietal scalp incision healed; Neck- supple; Cor- RR; Lungs- CTA B; Abd- benign, + BS; Ext- No sign of DVT CN- intact except L inferolateral quadrant VF defect; Motor- 5/5 without drift; Sensation- intact; DTR- hyporeflexia ROS- negative to recent weight loss, no f/c Brain MRI (non-chanell)- no acute stroke; increased R parietal edema/mass effect; splenium T2 hyperintensity Probable local R parietal tumor recurrence Decadron for vasogenic edema; insulin coverage Sz [prophylaxis- neurology f/u Reconsult rad onc to assess prior rad dosing and potential for additional tx Brain MRI with chanell
[2016-12-20 08:41] LABS: ALBUMIN 2.4 g/dl (3.4-5.0); ANION GAP 9 (8-16); CALCIUM 8.4 mg/dL (8.5-10.1); CO2 29 mmol/L (21-32); SGOT/AST 12 U/L (15-37); SGPT/ALT 22 U/L (12-78)
[2016-12-20 08:42] LABS: ALK PHOS 151 U/L (45-117); BILIRUBIN,TOTAL 0.4 mg/dL (0.2-1.0); CREATININE 0.9 mg/dL (0.55-1.02); TOT PROT 5.3 g/dl (6.4-8.2)
[2016-12-20 08:56] LABS: GLUCOSE,RANDOM 326 mg/dL (74-106)
[2016-12-20] MEDS: LEVOFLOXACIN 500 MG IVPB 100 ML IVPB SCH (09:25)
[2016-12-20] MEDS: LOSARTAN POTASSIUM 50 MG TABLET (FP) PO SCH (09:25)
[2016-12-20] MEDS: PANTOPRAZOLE 20 MG TABLET (FP) PO SCH (09:26)
[2016-12-20] MEDS: levETIRAcetam 500 MG TABLET (FP) PO SCH ×2 (09:26→22:26)
[2016-12-20] MEDS: HYDROCHLOROTHIAZIDE 25 MG TABLET (FP) PO SCH (09:26)
[2016-12-20] MEDS: FERROUS SO4 325 MG TABLET (FP) PO SCH ×2 (09:26→22:26)
[2016-12-20] MEDS: LAPATINIB DITOSYLATE PO SCH (09:28)
[2016-12-20] MEDS: CAPECITABINE 500 MG TABLET PO SCH ×2 (09:29→22:27)
[2016-12-20] MEDS ORDERED: PT OWN MED DRAWER 7, Y5N ONE (09:39)
[2016-12-20] MEDS: KCL 10 MEQ IVPB 100 ML IVPB SCH ×3 (10:35→15:59)
--- NOTE | 2016-12-20 19:59 | PN ---
Progress Note, Physician History of Present Illness: No new complaints - Current Medication List Current Medications: Active Medications Acetaminophen (Tylenol -) 650 mg PO Q6H PRN PRN Reason: FEVER OR PAIN Capecitabine (Xeloda -) 1,000 mg PO BID [facility] Last Admin: 12/20/16 09:29 Dose: 1,000 mg Dexamethasone (Decadron -) 4 mg PO Q6H [facility] Last Admin: 12/20/16 16:26 Dose: 4 mg Ferrous Sulfate (Feosol -) 325 mg PO BID [facility] Last Admin: 12/20/16 09:26 Dose: 325 mg Hydrochlorothiazide (Hctz -) 25 mg PO DAILY [facility] Last Admin: 12/20/16 09:26 Dose: 25 mg Levofloxacin (Levaquin 500 Mg Premixed Ivpb -) 100 mls @ 100 mls/hr IVPB DAILY [facility] Last Admin: 12/20/16 09:25 Dose: 100 mls/hr Insulin Aspart (Novolog Vial Sliding Scale -) 1 vial SQ ACHS [facility] PRN Reason: Protocol Last Admin: 12/20/16 18:21 Dose: 10 units Insulin Detemir (Levemir Vial) 35 units SQ HS [facility] Last Admin: 12/19/16 21:37 Dose: 35 units Levetiracetam (Keppra -) 500 mg PO BID [facility] Last Admin: 12/20/16 09:26 Dose: 500 mg Losartan Potassium (Cozaar -) 100 mg PO DAILY [facility] Last Admin: 12/20/16 09:25 Dose: 100 mg Non-Formulary Medication (Lapatinib Ditosylate [Tykerb]) 1,250 mg PO DAILY [facility] Last Admin: 12/20/16 09:28 Dose: 1,250 mg Ondansetron HCl (Zofran Injection) 4 mg IVPB Q6H PRN PRN Reason: NAUSEA Pantoprazole Sodium (Protonix -) 20 mg PO DAILY [facility] Last Admin: 12/20/16 09:26 Dose: 20 mg - Objective Vital Signs: Vital Signs Temperature 98.2 F 12/20/16 15:57 Pulse Rate 58 L 12/20/16 15:57 Respiratory Rate 16 12/20/16 15:57 Blood Pressure 120/82 12/20/16 15:57 O2 Sat by Pulse Oximetry (%) 97 12/20/16 09:00 Constitutional: Yes: Well Nourished HENT: Yes: WNL Neck: Yes: WNL, Supple Cardiovascular: Yes: WNL, Regular Rate and Rhythm Respiratory: Yes: WNL, Regular, CTA Bilaterally Gastrointestinal: Yes: WNL, Normal Bowel Sounds, Soft Labs: CBC, BMP 12/20/16 07:00 INR, PTT INR 1.04 (0.82-1.09) 12/16/16 13:46 Problem List - Problems (1) UTI (urinary tract infection) Assessment/Plan: Cont IV levaquin Urine culture (+) for E.Coli ID consult Code(s): N39.0 - URINARY TRACT INFECTION, SITE NOT SPECIFIED (2) Breast CA Assessment/Plan: Metastatic lesions to brain w/ edema Cont keppra for seizure prophylaxis MRI brain pending: probable reoccurence of parietal tumor Decadron Rad onco consult Code(s): C50.919 - MALIGNANT NEOPLASM OF UNSP SITE OF UNSPECIFIED FEMALE BREAST Qualifiers: Breast location: overlapping sites of breast Laterality: right (3) Diabetes Assessment/Plan: Elevated glucose due to decadron Cont sliding scale w/ novolog Increase levemir Code(s): E11.9 - TYPE 2 DIABETES MELLITUS WITHOUT COMPLICATIONS Qualifiers: Diabetes mellitus type: type 2 Diabetes mellitus complication status: without complication (4) Hypertension Assessment/Plan: Cont losartan/hctz Code(s): I10 - ESSENTIAL (PRIMARY) HYPERTENSION
[2016-12-20 20:18] LABS: ALBUMIN 2.7 g/dl (3.4-5.0); ANION GAP 11 (8-16); CALCIUM 8.6 mg/dL (8.5-10.1); CO2 27 mmol/L (21-32); SGOT/AST 15 U/L (15-37); SGPT/ALT 24 U/L (12-78)
[2016-12-20 20:21] LABS: ALK PHOS 163 U/L (45-117); BILIRUBIN,TOTAL 0.9 mg/dL (0.2-1.0)
[2016-12-20 20:29] LABS: GLUCOSE,RANDOM 372 mg/dL (74-106)
[2016-12-20] MEDS ORDERED: POTASSIUM CHLORIDE TABS 20 MEQ TABLET.ER (FP) PO ONE (21:35)
[2016-12-20] MEDS ORDERED: INSULIN DETEMIR 100 UNITS/ML MDV SQ SCH (22:00)
[2016-12-20] MEDS: HEPARIN NA (PORCINE) 5,000 UNITS/ML 1ML VIAL SQ SCH (22:26)
[2016-12-21] MEDS: DEXAMETHASONE 4 MG TABLET (FP) PO SCH ×4 (03:06→22:22)
[2016-12-21] MEDS: INSULIN SLIDING SCALE (NOVOLOG) 1 VIAL SQ SCH ×4 (07:46→22:24)
--- NOTE | 2016-12-21 08:10 | PN ---
Progress Note (short form) - Note Progress Note: Radiation Oncology (full consult dictated) 56 yo woman known to us w hx of metastatic breast cancer w brain mets s/p craniotomy, post op GKS and WBRT in 2014, on systemic tx admitted after a fall at home, imaging shows edema around prior right posterior parietal surgical site. Suspect tumor recurrence but will await contrast MRI. There's a possibility of radionecrosis among other less likely causes. Prior RT treatments were reviewed, the prior resection bed has received at least 15Gy with gamma knife followed by 30Gy external beam to whole brain. There would be significant risk of re-irradiation. Follow up MRI result.
--- NOTE | 2016-12-21 08:26 | PN ---
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 s/p R parietal craniotomy (2014) followed by adjuvant gamma knife tx for brain mets and XRT to LS spine, maintenance chemo presents with possible sz and fall from bed; Hyperglycemia No H/A, N/V, diplopia PE: AF, VSS HEENT- NC/AT, R parietal scalp incision healed; Neck- supple; Cor- RR; Lungs- CTA B; Abd- benign, + BS; Ext- No sign of DVT CN- intact except L inferolateral quadrant VF defect; Motor- 5/5 without drift; Sensation- intact; DTR- hyporeflexia ROS- negative to recent weight loss, no f/c Brain MRI (non-chanell)- no acute stroke; increased R parietal edema/mass effect; splenium T2 hyperintensity MRI with chanell (prelim)- nodular anterior and posterior priro resection cavity enhancement, some vaogenic edema and mass effect Probable local R parietal tumor recurrence vs delayed radiation reaction As pt is not symptomatic no further neurosurgical intervention is recommended Decadron for vasogenic edema; insulin coverage Sz prophylaxis- neurology f/u Rad onc opinion noted- pt received GKS and local boost previously already Further care per Dr Kiser
[2016-12-21 08:28] LABS: BASOPHIL 0.2 % (0-2.0); EOSINOPHIL 0.1 % (0-4.5); MCH 26.2 pg (25.7-33.7); MCHC 32.4 g/dl (32.0-36.0); MEAN CELL VOLUME 80.9 fl (80-96); MEAN PLT VOLUME 8.3 fl (7.5-11.1); NEUTROPHILS 87.4 % (42.8-82.8); PLATELET COUNT 162 K/MM3 (134-434); WHITE BLOOD COUNT 7.6 K/mm3 (4.0-10.0)
[2016-12-21 09:10] LABS: ALBUMIN 2.5 g/dl (3.4-5.0); ALK PHOS 137 U/L (45-117); ANION GAP 10 (8-16); BILIRUBIN,TOTAL 0.6 mg/dL (0.2-1.0); CALCIUM 8.5 mg/dL (8.5-10.1); CO2 29 mmol/L (21-32); CREATININE 0.8 mg/dL (0.55-1.02); GLUCOSE,RANDOM 242 mg/dL (74-106); SGOT/AST 11 U/L (15-37); SGPT/ALT 20 U/L (12-78); TOT PROT 5.6 g/dl (6.4-8.2)
[2016-12-21] MEDS: LOSARTAN POTASSIUM 50 MG TABLET (FP) PO SCH (10:21)
[2016-12-21] MEDS: HYDROCHLOROTHIAZIDE 25 MG TABLET (FP) PO SCH (10:22)
[2016-12-21] MEDS: FERROUS SO4 325 MG TABLET (FP) PO SCH ×2 (10:22→22:22)
[2016-12-21] MEDS: levETIRAcetam 500 MG TABLET (FP) PO SCH ×2 (10:22→22:22)
[2016-12-21] MEDS: HEPARIN NA (PORCINE) 5,000 UNITS/ML 1ML VIAL SQ SCH ×2 (10:22→22:22)
[2016-12-21] MEDS: LAPATINIB DITOSYLATE PO SCH (10:24)
[2016-12-21] MEDS: LEVOFLOXACIN 500 MG IVPB 100 ML IVPB SCH (10:24)
[2016-12-21] MEDS: PANTOPRAZOLE 20 MG TABLET (FP) PO SCH (10:24)
[2016-12-21] MEDS: CAPECITABINE 500 MG TABLET PO SCH ×2 (10:25→22:22)
--- NOTE | 2016-12-21 10:52 | CONS ---
DATE OF CONSULTATION: 12/21/2016 REFERRING PHYSICIAN: Gabbi Tovar MD REASON FOR CONSULTATION: Brain edema. 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 She was found to have brain and bone metastases. She underwent a right parietal craniotomy and tumor resection followed by postoperative Gamma Knife radiosurgery to the resection cavity as well as 5 additional intracranial metastatic lesions in March 2015. At the time of the Gamma Knife procedure, she was noted to have at least 25 smaller brain metastases and recommended to have whole-brain radiation therapy, which she completed in April 2015. The Gamma Knife dose was 15 Gy to each of 6 targets and 30 Gy to the whole brain with external beam therapy. She has been maintained on systemic therapy by Dr. Kiser having received Xeloda and Lapatinib most recently. She is admitted after an episode of unsteadiness and a fall in her bedroom. She denies headaches, nausea , vomiting, diplopia. She has been started on Decadron. A recent MRI without contrast showed extensive edema in the right hemisphere with a midline shift. An earlier contrast MRI in March 2016 demonstrated enhancement at the periphery of the surgical cavity/tumor with new edema compared May 2015. We are asked for a radiotherapy opinion. PAST MEDICAL HISTORY: Prior radiation therapy as noted above. She has hypertension, diabetes mellitus, and GERD. PAST SURGICAL HISTORY: section and right parietal craniotomy as mentioned above. ALLERGIES: OXYCODONE. CURRENT MEDICATIONS: Lapatinib, Cozaar, Levaquin, hepatitis subcutaneous, Keppra, Xeloda, Decadron 4 mg q.6 hours, insulin sliding scale, iron sulfate, Protonix, hydrochlorothiazide. SOCIAL HISTORY: She is a nonsmoker and does not consume alcohol. 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 She lives her family. FAMILY HISTORY: No known history of malignancy. REVIEW OF SYSTEMS: Denies weight loss, change in appetite, back pain, urinary incontinence, constipation, paresthesias, or weakness in the extremities in addition to that noted previously. The remainder of the review of systems is negative. PHYSICAL EXAMINATION: General: Well-appearing, well-nourished, female in no acute distress sleeping in the hospital bed. Vital Signs: Temperature 98.6, blood pressure 146/84, respiratory rate 20. HEENT: Alopecia. Scalp xerosis and hyperpigmentation. No active desquamation, palpable mass, or tenderness in the scalp or sinus regions. Mucous membranes are moist. Sclerae are anicteric. Oral cavity is clear. Neck: Supple without adenopathy. Chest: Clear. No axillary adenopathy. Cardiovascular: Regular. Abdomen: Soft, nontender, nondistended. Extremities: No edema. Musculoskeletal: No tenderness or paraspinal mass along the spine. Neurologic: Alert and oriented x3. No aphasia. She has a left peripheral visual field cut. No facial asymmetry. Tongue is midline. Motor exam is 5/5 in the 4 extremities. No pronator drift. Deep tendon reflexes equal bilaterally. Sensation to light touch is equal in the 4 extremities. Coordination is slow. Slow alternating hand movement and finger to nose but intact. Gait is not tested for the patient's safety. RADIOLOGIC DATA: MRI of the brain December 14, 2016, April 04, 2016, May were reviewed and noted above. No official report on contrast brain MRI, on my review there is enhancement along the prior surgical cavity consistent with either tumor recurrence or radiation necrosis. There is extensive edema and a midline shift. IMPRESSION: A 56-year-old woman with stage IV breast cancer with bone and brain metastases status post craniotomy and resection, postoperative Gamma Knife radiosurgery to the resection cavity and additional metastases followed by whole-brain radiation therapy completed in 2014, on systemic therapy with increased post treatment edema and enhancement along the right posterior parietal operative bed associated with midline shift. I agree with continuing Decadron and seizure medications as recommended by the neurologic and surgical services. We will follow up the official report of the contrast MRI to confirm tumor recurrence in the surgical bed, which is likely, but there is also a possibility of radionecrosis given the radiation treatment history and timing of changes occurring about 1 year after the radiotherapy. If tumor recurrence is confirmed, there likely would be a high risk of toxicity with reirradiation, but again, we will await the further evaluations. I appreciate the opportunity to participate in the care of this patient. ANIBAL MICHELE M.D. LIANA/[id number] MTDD
[2016-12-21] MEDS ORDERED: SODIUM CHLORIDE 1,000 ML IV SCH (11:15)
[2016-12-21] MEDS ORDERED: INSULIN (NOVOLOG) ASPART 100 UNITS/ML 10ML VIAL ONE (11:33)
--- NOTE | 2016-12-21 12:00 | CONSULT ---
Consult Consult Specialty:: infectious diseases Referred by:: Reason for Consultation:: uti - History of Present Illness History of Present Illness: 56 year old female with a PMHx of brain tumor (removed 2014) with associated seizures, breast CA, HTN, NIDDM admitted because of abnormal MRI findings of the brain. The patient has had unsteady gait and has been forgetful, which prompted the MRI. The MRI showed mass effect. The patient reports she has been recently falling. The patient has no complaints. She denies current headache, dizziness, abdominal pain, nausea, vomiting. She denies chest pain, SOB. 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) Cardio/Vascular: Yes: HTN Endocrine: Yes: Diabetes Mellitus - Past Surgical History Past Surgical History: Yes: Breast Biopsy, - Alcohol/Substance Use Hx Alcohol Use: No - Smoking History Smoking history: Never smoked Have you smoked in the past 12 months: No Aproximately how many cigarettes per day: 0 - Social History Usual Living Arrangement: With Spouse ADL: Support Services 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 History of Recent Travel: No Home Medications - Allergies Allergies/Adverse Reactions: Allergies Allergy/AdvReac Type Severity Reaction Status Date / Time oxycodone HCl [From Percocet] Allergy Verified 12/16/16 13:00 - Home Medications Home Medications: Ambulatory Orders Losartan/Hydrochlorothiazide [Losartan-Hctz 100-25 mg Tab] 1 each PO DAILY 03/13 Acetaminophen [Tylenol -] 650 mg PO Q6H #30 tablet 03/22/16 Ferrous Sulfate 325 mg PO BID 03/22/16 Omeprazole 20 mg PO DAILY 03/22/16 Capecitabine 1,000 mg PO BID 12/16/16 Dexamethasone [Decadron -] 4 mg PO TID 12/16/16 Lapatinib Ditosylate [Tykerb] 1,250 mg PO DAILY 12/16/16 Family Disease History - Family Disease History Family Disease History: Other: Grandparent (asthma), Father ( of unknown cause), Mother (htn), Brother (3B healthy and living), Sister (4S healthy and living) Other Family History: No family history of breast or ovarian ca Review of Systems - Review of Systems Constitutional: reports: Weakness Eyes: reports: No Symptoms HENT: reports: No Symptoms Neck: reports: No Symptoms Cardiovascular: reports: No Symptoms Respiratory: reports: No Symptoms Gastrointestinal: reports: No Symptoms Genitourinary: reports: No Symptoms Musculoskeletal: reports: No Symptoms Integumentary: reports: No Symptoms Neurological: reports: Numbness, Unsteady Gait Endocrine: reports: No Symptoms Hematology/Lymphatic: reports: No Symptoms Psychiatric: reports: No Symptoms Physical Exam Vital Signs: Vital Signs Temperature 98.6 F 12/21/16 10:00 Pulse Rate 70 12/21/16 10:00 Respiratory Rate 20 12/21/16 10:00 Blood Pressure 102/67 12/21/16 10:00 O2 Sat by Pulse Oximetry (%) 98 12/20/16 21:00 Constitutional: Yes: Well Nourished, No Distress, Calm Eyes: Yes: Conjunctiva Clear HENT: Yes: Atraumatic Neck: Yes: Supple, Trachea Midline Cardiovascular: Yes: Regular Rate and Rhythm Respiratory: Yes: Regular, CTA Bilaterally Gastrointestinal: Yes: Normal Bowel Sounds, Soft Musculoskeletal: Yes: WNL Extremities: Yes: WNL Neurological: Yes: Alert, Oriented Psychiatric: Yes: Alert, Oriented Labs: CBC, BMP 12/21/16 06:30 12/21/16 06:30 Imaging - Results Chest X-ray: Report Reviewed, Image Reviewed MRI: Image Reviewed Assessment/Plan patient with multiple medical problems including brain tumor now with uti brain tumor mets weaknss uti plan will stop levaquin will start ceftriaxone rest as per primary team
[2016-12-21] MEDS: KCL 10 MEQ IVPB 100 ML IVPB SCH ×3 (12:01→13:54)
[2016-12-21] MEDS ORDERED: DEXTROSE 5%-WATER - 50 ML IVPB ONE (14:51)
[2016-12-21] MEDS ORDERED: cefTRIAXone SODIUM 1 GM VIAL ONE (14:51)
[2016-12-21] MEDS: CEFTRIAXONE 1 GM in DEXTROSE 5%-WATER - 50 ML IVPB SCH (15:35)
--- NOTE | 2016-12-21 18:00 | PN ---
Progress Note (short form) - Note Progress Note: Rad Onc I reviewed contrast MRI with Dr. Barnett. There is extensive edema (which is stable) but slightly increased enhancement around parietal resection bed compared to 03/2016. Irregularity of enhancement would favor tumor recurrence but cannot rule out evolving radiation necrosis. He recommended further evaluation with a perfusion MRI which can be done at [facility]. While this may or may not assist surgical decision making, I would not recommend more RT in either case.
--- NOTE | 2016-12-21 19:31 | PN ---
Progress Note (short form) - Note Progress Note: patient feels well with no complaints. She does not have any headaches, tingling , numbness . she feels OK. Notes reviewed, Neurosurgery/RadOnc AOx3, PERRLA, EOMI CTA(BL) S1S2 wnl Soft abdomen No focal neurological deficits on exam Last Vital Signs Temp Pulse Resp BP Pulse Ox 98.6 F 56 L 20 115/63 96 12/21/16 16:20 12/21/16 16:20 12/21/16 16:20 12/21/16 16:20 12/21/16 09:00 Current Medications Generic Name Dose Route Start Last Admin Trade Name Freq PRN Reason Stop Dose Admin Acetaminophen 650 mg 12/17/16 18:11 Tylenol - PO Q6H PRN FEVER OR PAIN Capecitabine 1,000 mg 12/17/16 22:00 12/21/16 10:25 Xeloda - PO 1,000 mg BID JD Administration Dexamethasone 4 mg 12/19/16 15:30 12/21/16 15:39 Decadron - PO 4 mg Q6H JD Administration Ferrous Sulfate 325 mg 12/17/16 22:00 12/21/16 10:22 Feosol - PO 325 mg BID JD Administration Heparin Sodium (Porcine) 5,000 unit 12/20/16 22:00 12/21/16 10:22 Heparin - SQ 5,000 unit BID JD Administration Hydrochlorothiazide 25 mg 12/18/16 10:00 12/21/16 10:22 Hctz - PO 25 mg DAILY JD Administration Ceftriaxone Sodium 1 gm/ 50 mls @ 100 mls/hr 12/21/16 12:00 12/21/16 15:35 Dextrose IVPB 100 mls/hr DAILY JD Administration Insulin Aspart 1 vial 12/17/16 22:00 12/21/16 16:35 Novolog Vial Sliding Scale - SQ 10 units ACHS JD Administration Protocol Insulin Detemir 30 units 12/21/16 22:00 Levemir Vial SQ BID@0700,2200 JD Levetiracetam 500 mg 12/19/16 10:00 12/21/16 10:22 Keppra - PO 500 mg BID JD Administration Losartan Potassium 100 mg 12/18/16 10:00 12/21/16 10:21 Cozaar - PO 100 mg DAILY JD Administration Non-Formulary Medication 1,250 mg 12/18/16 10:00 12/21/16 10:24 Lapatinib Ditosylate [Tykerb] PO 1,250 mg DAILY JD Administration Ondansetron HCl 4 mg 12/17/16 18:11 Zofran Injection IVPB Q6H PRN NAUSEA Pantoprazole Sodium 20 mg 12/18/16 10:00 12/21/16 10:24 Protonix - PO 20 mg DAILY JD Administration CBC, BMP 12/21/16 06:30 12/21/16 06:30 56 y/o female with metastatic breast cancer currently on xeloda + lapatinib as an outpatient, Hx of brain mets in 2014 that were treated with stereotactic surgery and also WBRT. metastatic breast cancer brain mets High Blood sugars Hypokalemia UTI -patient neurologically stable -continue decadron at 4 mg q6h, PO,close monitoring of sugars needed. -antiseizure meds per neurology -continue outpatient chemo meds -Xeloda + lapatinib PO -Appreciate RadOnc/Neurosurgery consultations -No further role of RT -Neurosurgery f/u after Brain MRI . -on treatment for UTI - can follow with as outpatient
--- NOTE | 2016-12-21 19:57 | CONSULT ---
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) Cardio/Vascular: Yes: HTN Endocrine: Yes: Diabetes Mellitus - Past Surgical History Past Surgical History: Yes: Breast Biopsy, - Alcohol/Substance Use Hx Alcohol Use: No - Smoking History Smoking history: Never smoked Have you smoked in the past 12 months: No Aproximately how many cigarettes per day: 0 - Social History Usual Living Arrangement: With Spouse ADL: Support Services 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 History of Recent Travel: No Home Medications - Allergies Allergies/Adverse Reactions: Allergies Allergy/AdvReac Type Severity Reaction Status Date / Time oxycodone HCl [From Percocet] Allergy Verified 12/16/16 13:00 - Home Medications Home Medications: Ambulatory Orders Losartan/Hydrochlorothiazide [Losartan-Hctz 100-25 mg Tab] 1 each PO DAILY 03/13 Acetaminophen [Tylenol -] 650 mg PO Q6H #30 tablet 03/22/16 Ferrous Sulfate 325 mg PO BID 03/22/16 Omeprazole 20 mg PO DAILY 03/22/16 Capecitabine 1,000 mg PO BID 12/16/16 Dexamethasone [Decadron -] 4 mg PO TID 12/16/16 Lapatinib Ditosylate [Tykerb] 1,250 mg PO DAILY 12/16/16 Family Disease History - Family Disease History Family Disease History: Other: Grandparent (asthma), Father ( of unknown cause), Mother (htn), Brother (3B healthy and living), Sister (4S healthy and living) Other Family History: No family history of breast or ovarian ca Review of Systems - Review of Systems Constitutional: reports: Lethargy Eyes: reports: Blurred Vision HENT: reports: Difficult Swallowing Neck: reports: No Symptoms Cardiovascular: reports: No Symptoms Respiratory: reports: No Symptoms Gastrointestinal: reports: No Symptoms Breasts: reports: Pain Musculoskeletal: reports: Muscle Cramps, Muscle Weakness Neurological: reports: Confusion Endocrine: reports: Unexplained Weight Gain Physical Exam Vital Signs: Vital Signs Temperature 98.6 F 12/21/16 16:20 Pulse Rate 56 L 12/21/16 16:20 Respiratory Rate 20 12/21/16 16:20 Blood Pressure 115/63 12/21/16 16:20 O2 Sat by Pulse Oximetry (%) 96 12/21/16 09:00 Constitutional: Yes: Anxious Eyes: Yes: EOM Intact HENT: Yes: Normocephalic Neck: Yes: Trachea Midline Respiratory: Yes: CTA Bilaterally Gastrointestinal: Yes: Normal Bowel Sounds ...Rectal Exam: Yes: Deferred Renal/: Yes: WNL Breast(s): Yes: Skin Changes Musculoskeletal: Yes: WNL Extremities: Yes: WNL Edema: No Neurological: Yes: Alert Labs: CBC, BMP 12/21/16 06:30 12/21/16 06:30 Problem List - Problems (1) Cerebral edema Code(s): G93.6 - CEREBRAL EDEMA (2) Breast CA Code(s): C50.919 - MALIGNANT NEOPLASM OF UNSP SITE OF UNSPECIFIED FEMALE BREAST Qualifiers: Breast location: overlapping sites of breast Laterality: right (3) Diabetes Code(s): E11.9 - TYPE 2 DIABETES MELLITUS WITHOUT COMPLICATIONS Qualifiers: Diabetes mellitus type: type 2 Diabetes mellitus complication status: without complication (4) Dizziness Code(s): R42 - DIZZINESS AND GIDDINESS Assessment/Plan Current Active Problems Cerebral edema (Acute) UTI (urinary tract infection) (Acute) NIDDM INSULIN REQUIRING ,HYPERGLYCEMIA INSULIN RESISTANT, HYPOKALEMIA HTN ASSESSMENT COORDINATOR BRAIN METS\ BREAST CANCER Abnormal Lab Results 12/20/16 12/21/16 12/21/16 18:30 06:30 06:30 Hgb 10.5 L RDW 18.0 H Neutrophils % 87.4 H Monocytes % 3.3 L Sodium 131 L Potassium 3.2 L 2.9 L* Chloride 93 L 97 L BUN 29 H 24 H Random Glucose 372 H* 242 H D AST 11 L D Alkaline Phosphatase 163 H 137 H Total Protein 6.0 L 5.6 L Albumin 2.7 L 2.5 L Laboratory Results - last 24 hr 12/20/16 12/21/16 12/21/16 18:30 06:30 06:30 WBC 7.6 RBC 4.02 Hgb 10.5 L Hct 32.5 MCV 80.9 MCH 26.2 MCHC 32.4 RDW 18.0 H Plt Count 162 MPV 8.3 Neutrophils % 87.4 H Lymphocytes % 9.0 D Monocytes % 3.3 L Eosinophils % 0.1 D Basophils % 0.2 Sodium 131 L 136 Potassium 3.2 L 2.9 L* Chloride 93 L 97 L Carbon Dioxide 27 29 Anion Gap 11 10 BUN 29 H 24 H Creatinine 1.0 0.8 Creat Clearance w eGFR 57.15 > 60 POC Glucometer Random Glucose 372 H* 242 H D Calcium 8.6 8.5 Total Bilirubin 0.9 D 0.6 D AST 15 D 11 L D ALT 24 20 Alkaline Phosphatase 163 H 137 H Total Protein 6.0 L 5.6 L Albumin 2.7 L 2.5 L 12/21/16 12/21/16 12/21/16 06:43 11:37 16:34 WBC RBC Hgb Hct MCV MCH MCHC RDW Plt Count MPV Neutrophils % Lymphocytes % Monocytes % Eosinophils % Basophils % Sodium Potassium Chloride Carbon Dioxide Anion Gap BUN Creatinine Creat Clearance w eGFR POC Glucometer 256 391 392 Random Glucose Calcium Total Bilirubin AST ALT Alkaline Phosphatase Total Protein Albumin PLAN: BGM QID NOVOLOG COVERAGE WHILE ON STEROIDS WILL INCREASE DOSE OF LEVEMIR 30 UNITS BID\ DC DIURETIC USE ALDACTONE 50MG AND TITRATE DOSE CK CORTISOL AM CK ALDOSTERONE RENIN LEVEL
[2016-12-21] MEDS ORDERED: PT OWN MED DRAWER 7, Y5N ONE (22:10)
--- NOTE | 2016-12-21 22:10 | PN ---
Progress Note, Physician History of Present Illness: No new complaints Pt states that she does not have a tumor in her brain? - Current Medication List Current Medications: Active Medications Acetaminophen (Tylenol -) 650 mg PO Q6H PRN PRN Reason: FEVER OR PAIN Capecitabine (Xeloda -) 1,000 mg PO BID [facility] Last Admin: 12/21/16 10:25 Dose: 1,000 mg Dexamethasone (Decadron -) 4 mg PO Q6H [facility] Last Admin: 12/21/16 15:39 Dose: 4 mg Ferrous Sulfate (Feosol -) 325 mg PO BID [facility] Last Admin: 12/21/16 10:22 Dose: 325 mg Heparin Sodium (Porcine) (Heparin -) 5,000 unit SQ BID [facility] Last Admin: 12/21/16 10:22 Dose: 5,000 unit Ceftriaxone Sodium 1 gm/ (Dextrose) 50 mls @ 100 mls/hr IVPB DAILY [facility] Last Admin: 12/21/16 15:35 Dose: 100 mls/hr Insulin Aspart (Novolog Vial Sliding Scale -) 1 vial SQ ACHS [facility] PRN Reason: Protocol Last Admin: 12/21/16 16:35 Dose: 10 units Insulin Detemir (Levemir Vial) 30 units SQ BID@0700,2200 [facility] Levetiracetam (Keppra -) 500 mg PO BID [facility] Last Admin: 12/21/16 10:22 Dose: 500 mg Losartan Potassium (Cozaar -) 100 mg PO DAILY [facility] Last Admin: 12/21/16 10:21 Dose: 100 mg Non-Formulary Medication (Lapatinib Ditosylate [Tykerb]) 1,250 mg PO DAILY [facility] Last Admin: 12/21/16 10:24 Dose: 1,250 mg Ondansetron HCl (Zofran Injection) 4 mg IVPB Q6H PRN PRN Reason: NAUSEA Pantoprazole Sodium (Protonix -) 20 mg PO DAILY [facility] Last Admin: 12/21/16 10:24 Dose: 20 mg - Objective Vital Signs: Vital Signs Temperature 98.6 F 12/21/16 16:20 Pulse Rate 56 L 12/21/16 16:20 Respiratory Rate 20 12/21/16 16:20 Blood Pressure 115/63 12/21/16 16:20 O2 Sat by Pulse Oximetry (%) 96 12/21/16 09:00 Constitutional: Yes: No Distress Neck: Yes: WNL, Supple Cardiovascular: Yes: WNL, Regular Rate and Rhythm Respiratory: Yes: WNL, Regular, CTA Bilaterally Gastrointestinal: Yes: WNL, Normal Bowel Sounds, Soft Labs: CBC, BMP 12/21/16 06:30 12/21/16 19:30 INR, PTT INR 1.04 (0.82-1.09) 12/16/16 13:46 Problem List - Problems (1) UTI (urinary tract infection) Code(s): N39.0 - URINARY TRACT INFECTION, SITE NOT SPECIFIED (2) Breast CA Code(s): C50.919 - MALIGNANT NEOPLASM OF UNSP SITE OF UNSPECIFIED FEMALE BREAST Qualifiers: Breast location: overlapping sites of breast Laterality: right (3) Diabetes Code(s): E11.9 - TYPE 2 DIABETES MELLITUS WITHOUT COMPLICATIONS Qualifiers: Diabetes mellitus type: type 2 Diabetes mellitus complication status: without complication (4) Hypertension Code(s): I10 - ESSENTIAL (PRIMARY) HYPERTENSION
[2016-12-21] MEDS: INSULIN DETEMIR 100 UNITS/ML MDV SQ SCH (22:25)
[2016-12-22] MEDS: DEXAMETHASONE 4 MG TABLET (FP) PO SCH ×4 (03:25→22:21)
[2016-12-22] MEDS ORDERED: POTASSIUM CHLORIDE TABS 20 MEQ TABLET.ER (FP) PO ONE ×2 (06:30→14:30)
[2016-12-22] MEDS: INSULIN DETEMIR 100 UNITS/ML MDV SQ SCH (06:54)
[2016-12-22] MEDS: INSULIN SLIDING SCALE (NOVOLOG) 1 VIAL SQ SCH ×4 (06:55→22:22)
--- NOTE | 2016-12-22 07:39 | PN ---
Progress Note (short form) - Note Progress Note: NEUROSURGERY Tolerating diet Ambulating independently No H/A, N/V, diplopia Care d/w Dr Caldwell PE: AF, VSS HEENT- NC/AT, R parietal scalp incision healed; Neck- supple; Cor- RR; Lungs- CTA B; Abd- benign, + BS; Ext- No sign of DVT CN- intact except L inferolateral quadrant VF defect; Motor- 5/5 without drift; Sensation- intact; DTR- hyporeflexia Brain MRI (non-chanell)- no acute stroke; increased R parietal edema/mass effect; splenium T2 hyperintensity MRI with chanell - nodular anterior and posterior prior resection cavity enhancement , some vasogenic edema and mass effect Probable local R parietal tumor recurrence vs delayed radiation reaction As pt is not symptomatic no further neurosurgical intervention is recommended Decadron for vasogenic edema; insulin coverage Sz prophylaxis- neurology f/u Rad onc opinion noted- pt received GKS and local boost previously already Outpatient MRI perfusion study to r/o radiation reaction Further care/tx per Dr Kiser
[2016-12-22 08:28] LABS: ALBUMIN 2.5 g/dl (3.4-5.0); ALK PHOS 145 U/L (45-117); ANION GAP 7 (8-16); BILIRUBIN,TOTAL 0.5 mg/dL (0.2-1.0); CALCIUM 8.4 mg/dL (8.5-10.1); CO2 30 mmol/L (21-32); CREATININE 0.7 mg/dL (0.55-1.02); GLUCOSE,RANDOM 231 mg/dL (74-106); SGOT/AST 13 U/L (15-37); SGPT/ALT 19 U/L (12-78); TOT PROT 5.4 g/dl (6.4-8.2)
[2016-12-22] MEDS ORDERED: DEXTROSE 5%-WATER - 50 ML IVPB ONE (10:16)
[2016-12-22] MEDS ORDERED: cefTRIAXone SODIUM 1 GM VIAL ONE (10:16)
[2016-12-22] MEDS: LOSARTAN POTASSIUM 50 MG TABLET (FP) PO SCH (10:20)
[2016-12-22] MEDS: CEFTRIAXONE 1 GM in DEXTROSE 5%-WATER - 50 ML IVPB SCH (10:20)
[2016-12-22] MEDS: PANTOPRAZOLE 20 MG TABLET (FP) PO SCH (10:21)
[2016-12-22] MEDS: FERROUS SO4 325 MG TABLET (FP) PO SCH ×2 (10:21→22:21)
[2016-12-22] MEDS: levETIRAcetam 500 MG TABLET (FP) PO SCH ×2 (10:21→22:22)
[2016-12-22] MEDS: HEPARIN NA (PORCINE) 5,000 UNITS/ML 1ML VIAL SQ SCH ×2 (10:21→22:21)
[2016-12-22] MEDS: LAPATINIB DITOSYLATE PO SCH (10:22)
[2016-12-22] MEDS: CAPECITABINE 500 MG TABLET PO SCH ×2 (10:29→22:23)
[2016-12-22] MEDS ORDERED: PT OWN MED DRAWER 7, Y5N ONE (10:29)
--- NOTE | 2016-12-22 12:20 | PN ---
Progress Note, Physician History of Present Illness: stable no issues - Current Medication List Current Medications: Active Medications Acetaminophen (Tylenol -) 650 mg PO Q6H PRN PRN Reason: FEVER OR PAIN Capecitabine (Xeloda -) 1,000 mg PO BID [facility] Last Admin: 12/22/16 10:29 Dose: 1,000 mg Dexamethasone (Decadron -) 4 mg PO Q6H [facility] Last Admin: 12/22/16 10:21 Dose: 4 mg Ferrous Sulfate (Feosol -) 325 mg PO BID [facility] Last Admin: 12/22/16 10:21 Dose: 325 mg Heparin Sodium (Porcine) (Heparin -) 5,000 unit SQ BID [facility] Last Admin: 12/22/16 10:21 Dose: 5,000 unit Ceftriaxone Sodium 1 gm/ (Dextrose) 50 mls @ 100 mls/hr IVPB DAILY [facility] Last Admin: 12/22/16 10:20 Dose: 100 mls/hr Insulin Aspart (Novolog Vial Sliding Scale -) 1 vial SQ ACHS [facility] PRN Reason: Protocol Last Admin: 12/22/16 06:55 Dose: 4 units Insulin Detemir (Levemir Vial) 30 units SQ BID@0700,2200 [facility] Last Admin: 12/22/16 06:54 Dose: 30 units Levetiracetam (Keppra -) 500 mg PO BID [facility] Last Admin: 12/22/16 10:21 Dose: 500 mg Losartan Potassium (Cozaar -) 100 mg PO DAILY [facility] Last Admin: 12/22/16 10:20 Dose: 100 mg Non-Formulary Medication (Lapatinib Ditosylate [Tykerb]) 1,250 mg PO DAILY [facility] Last Admin: 12/22/16 10:22 Dose: 1,250 mg Ondansetron HCl (Zofran Injection) 4 mg IVPB Q6H PRN PRN Reason: NAUSEA Pantoprazole Sodium (Protonix -) 20 mg PO DAILY [facility] Last Admin: 12/22/16 10:21 Dose: 20 mg - Objective Vital Signs: Vital Signs Temperature 97.6 F 12/22/16 10:00 Pulse Rate 52 L 12/22/16 10:00 Respiratory Rate 20 12/22/16 10:00 Blood Pressure 124/78 12/22/16 10:00 O2 Sat by Pulse Oximetry (%) 97 08/03/17 11:31 Constitutional: Yes: No Distress, Calm Cardiovascular: Yes: Regular Rate and Rhythm Respiratory: Yes: Regular, CTA Bilaterally Gastrointestinal: Yes: Normal Bowel Sounds, Soft Musculoskeletal: Yes: WNL Extremities: Yes: WNL Neurological: Yes: Alert, Oriented Psychiatric: Yes: Alert, Oriented Labs: CBC, BMP 12/21/16 06:30 12/22/16 06:30 INR, PTT INR 1.04 (0.82-1.09) 12/16/16 13:46 Assessment/Plan patient with multiple medical problems including brain tumor now with uti brain tumor mets weaknss uti plan continue current mgmt rest as per neurosurgery and primary
[2016-12-22] MEDS ORDERED: INSULIN (NOVOLOG) ASPART 100 UNITS/ML 10ML VIAL ONE ×3 (12:30→17:22)
--- NOTE | 2016-12-22 17:55 | PN ---
Progress Note (short form) - Note Progress Note: patient feels well with no complaints. She does not have any headaches, tingling , numbness . she feels OK. Notes reviewed, Neurosurgery/RadOnc/Endo. AOx3, PERRLA, EOMI CTA(BL) S1S2 wnl Soft abdomen No focal neurological deficits on exam Last Vital Signs Last Vital Signs Temp Pulse Resp BP Pulse Ox 98.9 F 55 L 20 124/70 97 12/22/16 16:30 12/22/16 16:30 12/22/16 16:30 12/22/16 16:30 12/22/16 11:31 CBC, BMP 12/21/16 06:30 12/22/16 06:30 Current Medications Generic Name Dose Route Start Last Admin Trade Name Freq PRN Reason Stop Dose Admin Acetaminophen 650 mg 12/17/16 18:11 Tylenol - PO Q6H PRN FEVER OR PAIN Capecitabine 1,000 mg 12/17/16 22:00 12/22/16 10:29 Xeloda - PO 1,000 mg BID JD Administration Dexamethasone 4 mg 12/19/16 15:30 12/22/16 15:50 Decadron - PO 4 mg Q6H JD Administration Ferrous Sulfate 325 mg 12/17/16 22:00 12/22/16 10:21 Feosol - PO 325 mg BID JD Administration Heparin Sodium (Porcine) 5,000 unit 12/20/16 22:00 12/22/16 10:21 Heparin - SQ 5,000 unit BID JD Administration Ceftriaxone Sodium 1 gm/ 50 mls @ 100 mls/hr 12/21/16 12:00 12/22/16 10:20 Dextrose IVPB 100 mls/hr DAILY JD Administration Insulin Aspart 1 vial 12/17/16 22:00 12/22/16 17:11 Novolog Vial Sliding Scale - SQ 6 units ACHS JD Administration Protocol Insulin Detemir 30 units 12/21/16 22:00 12/22/16 06:54 Levemir Vial SQ 30 units BID@0700,2200 JD Administration Levetiracetam 500 mg 12/19/16 10:00 12/22/16 10:21 Keppra - PO 500 mg BID JD Administration Losartan Potassium 100 mg 12/18/16 10:00 12/22/16 10:20 Cozaar - PO 100 mg DAILY JD Administration Non-Formulary Medication 1,250 mg 12/18/16 10:00 12/22/16 10:22 Lapatinib Ditosylate [Tykerb] PO 1,250 mg DAILY JD Administration Ondansetron HCl 4 mg 12/17/16 18:11 Zofran Injection IVPB Q6H PRN NAUSEA Pantoprazole Sodium 20 mg 12/18/16 10:00 12/22/16 10:21 Protonix - PO 20 mg DAILY JD Administration 56 y/o female with metastatic breast cancer currently on xeloda + lapatinib as an outpatient, Hx of brain mets in 2014 that were treated with stereotactic surgery and also WBRT. metastatic breast cancer brain mets High Blood sugars Hypokalemia UTI -patient neurologically stable -continue decadron at 4 mg q6h, PO,close monitoring of sugars needed. -antiseizure meds per neurology -continue outpatient chemo meds -Xeloda + lapatinib PO -Appreciate RadOnc/Neurosurgery consultations, further MRI perfusion scan as an OP -neurosurgery f/u noted -on treatment for UTI -PT -can follow with as outpatient
--- NOTE | 2016-12-22 20:03 | PN ---
Progress Note (short form) - Note Progress Note: has clinical evident hypertension,hypokalemia,diabetes mellitus,hyperglycemia Current Active Problems Cerebral edema (Acute) UTI (urinary tract infection) (Acute) hyperaldosteronisms hypokalemia Abnormal Lab Results 12/21/16 12/22/16 19:30 06:30 Sodium 135 L Potassium 3.0 L 3.2 L Anion Gap 7 L BUN 24 H Random Glucose 231 H Calcium 8.4 L AST 13 L Alkaline Phosphatase 145 H Total Protein 5.4 L Albumin 2.5 L Laboratory Results - last 24 hr 12/21/16 12/22/16 12/22/16 19:30 03:24 06:30 Sodium 135 L Potassium 3.0 L 3.2 L Chloride 98 Carbon Dioxide 30 Anion Gap 7 L BUN 24 H Creatinine 0.7 Creat Clearance w eGFR > 60 POC Glucometer 268 Random Glucose 231 H Calcium 8.4 L Total Bilirubin 0.5 AST 13 L ALT 19 Alkaline Phosphatase 145 H Total Protein 5.4 L Albumin 2.5 L 12/22/16 12/22/16 12/22/16 06:53 12:19 16:58 Sodium Potassium Chloride Carbon Dioxide Anion Gap BUN Creatinine Creat Clearance w eGFR POC Glucometer 250 318 291 Random Glucose Calcium Total Bilirubin AST ALT Alkaline Phosphatase Total Protein Albumin plan: start aldactone 50mg bid adjust k 20meq bid 24hrs increase levemir 45 units bid Problem List - Problems (1) Cerebral edema Code(s): G93.6 - CEREBRAL EDEMA (2) Breast CA Code(s): C50.919 - MALIGNANT NEOPLASM OF UNSP SITE OF UNSPECIFIED FEMALE BREAST Qualifiers: Breast location: overlapping sites of breast Laterality: right (3) Diabetes Code(s): E11.9 - TYPE 2 DIABETES MELLITUS WITHOUT COMPLICATIONS Qualifiers: Diabetes mellitus type: type 2 Diabetes mellitus complication status: without complication (4) Dizziness Code(s): R42 - DIZZINESS AND GIDDINESS
[2016-12-22] MEDS: SPIRONOLACTONE 25 MG TABLET (FP) PO SCH (22:21)
[2016-12-22] MEDS: POTASSIUM CHLORIDE TABS 20 MEQ TABLET.ER (FP) PO SCH (22:22)
--- NOTE | 2016-12-22 22:45 | PN ---
Progress Note, Physician History of Present Illness: No new complaints - Current Medication List Current Medications: Active Medications Acetaminophen (Tylenol -) 650 mg PO Q6H PRN PRN Reason: FEVER OR PAIN Capecitabine (Xeloda -) 1,000 mg PO BID [facility] Last Admin: 12/22/16 22:23 Dose: 1,000 mg Dexamethasone (Decadron -) 4 mg PO Q6H [facility] Last Admin: 12/22/16 22:21 Dose: 4 mg Ferrous Sulfate (Feosol -) 325 mg PO BID [facility] Last Admin: 12/22/16 22:21 Dose: 325 mg Heparin Sodium (Porcine) (Heparin -) 5,000 unit SQ BID [facility] Last Admin: 12/22/16 22:21 Dose: 5,000 unit Ceftriaxone Sodium 1 gm/ (Dextrose) 50 mls @ 100 mls/hr IVPB DAILY [facility] Last Admin: 12/22/16 10:20 Dose: 100 mls/hr Insulin Aspart (Novolog Vial Sliding Scale -) 1 vial SQ ACHS [facility] PRN Reason: Protocol Last Admin: 12/22/16 22:22 Dose: 8 units Insulin Detemir (Levemir Vial) 45 units SQ BID@0700,1630 [facility] Levetiracetam (Keppra -) 500 mg PO BID [facility] Last Admin: 12/22/16 22:22 Dose: 500 mg Losartan Potassium (Cozaar -) 100 mg PO DAILY [facility] Last Admin: 12/22/16 10:20 Dose: 100 mg Non-Formulary Medication (Lapatinib Ditosylate [Tykerb]) 1,250 mg PO DAILY [facility] Last Admin: 12/22/16 10:22 Dose: 1,250 mg Ondansetron HCl (Zofran Injection) 4 mg IVPB Q6H PRN PRN Reason: NAUSEA Pantoprazole Sodium (Protonix -) 20 mg PO DAILY [facility] Last Admin: 12/22/16 10:21 Dose: 20 mg Potassium Chloride (K-Dur -) 20 meq PO BID [facility] Stop: 12/24/16 06:00 Last Admin: 12/22/16 22:22 Dose: 20 meq Spironolactone (Aldactone -) 50 mg PO BID [facility] Last Admin: 12/22/16 22:21 Dose: 50 mg - Objective Vital Signs: Vital Signs Temperature 98.9 F 12/22/16 16:30 Pulse Rate 55 L 12/22/16 16:30 Respiratory Rate 20 12/22/16 16:30 Blood Pressure 124/70 12/22/16 16:30 O2 Sat by Pulse Oximetry (%) 97 12/22/16 11:31 Constitutional: Yes: Well Nourished Neck: Yes: WNL, Supple Cardiovascular: Yes: WNL, Regular Rate and Rhythm Respiratory: Yes: WNL, Regular, CTA Bilaterally Gastrointestinal: Yes: WNL, Normal Bowel Sounds, Soft Labs: CBC, BMP 12/21/16 06:30 12/22/16 06:30 INR, PTT INR 1.04 (0.82-1.09) 12/16/16 13:46 Problem List - Problems (1) UTI (urinary tract infection) Assessment/Plan: Cont IV fectriaxone Urine culture (+) for E.Coli DC planning for am on ?PO antibx Code(s): N39.0 - URINARY TRACT INFECTION, SITE NOT SPECIFIED (2) Breast CA Assessment/Plan: Metastatic lesions to brain w/ edema Cont keppra for seizure prophylaxis Cont decadron Pt to get MRI w/ chanell as outpt Spoke at length about need for F/U w/ her onco Dr Kiser(at [facility]) and pt aware for outpt MRI Replace K+ ?SIADH Cont aldactone Code(s): C50.919 - MALIGNANT NEOPLASM OF UNSP SITE OF UNSPECIFIED FEMALE BREAST Qualifiers: Breast location: overlapping sites of breast Laterality: right (3) Diabetes Assessment/Plan: Elevated glucose due to decadron Cont sliding scale w/ novolog Increased levemir Code(s): E11.9 - TYPE 2 DIABETES MELLITUS WITHOUT COMPLICATIONS Qualifiers: Diabetes mellitus type: type 2 Diabetes mellitus complication status: without complication (4) Hypertension Code(s): I10 - ESSENTIAL (PRIMARY) HYPERTENSION
[2016-12-23] MEDS: DEXAMETHASONE 4 MG TABLET (FP) PO SCH ×4 (04:00→21:46)
[2016-12-23] MEDS: INSULIN DETEMIR 100 UNITS/ML MDV SQ SCH ×2 (06:45→17:02)
[2016-12-23] MEDS: INSULIN SLIDING SCALE (NOVOLOG) 1 VIAL SQ SCH ×4 (06:46→21:47)
[2016-12-23] MEDS ORDERED: INSULIN DETEMIR 100 UNITS/ML MDV SQ ONE ×2 (07:03→17:05)
--- NOTE | 2016-12-23 08:59 | PN ---
Progress Note (short form) - Note Progress Note: NEUROSURGERY Sitting up at bedside for breakfast No H/A, N/V Care d/w Dr Caldwell, Pt has maxed out rad dosing to R parietal region for now PE: AF, VSS HEENT- NC/AT, R parietal scalp incision healed; Neck- supple; Cor- RR; Lungs- CTA B; Abd- benign, + BS CN- intact except L inferolateral quadrant VF defect; Motor- 5/5 without drift; Sensation- intact; DTR- hyporeflexia Brain MRI (non-chanell)- no acute stroke; increased R parietal edema/mass effect; splenium T2 hyperintensity MRI with chanell - nodular anterior and posterior prior resection cavity enhancement , some vasogenic edema and mass effect Probable local R parietal tumor recurrence vs delayed radiation reaction Decadron for vasogenic edema 4 mg q6hr; consider tapering down to bid Sz prophylaxis Outpatient MRI perfusion study to r/o radiation reaction
[2016-12-23 09:02] LABS: ALBUMIN 2.5 g/dl (3.4-5.0); ANION GAP 10 (8-16); CALCIUM 8.3 mg/dL (8.5-10.1); CO2 27 mmol/L (21-32); CREATININE 0.7 mg/dL (0.55-1.02); GLUCOSE,RANDOM 216 mg/dL (74-106); SGOT/AST 12 U/L (15-37); SGPT/ALT 22 U/L (12-78)
[2016-12-23 09:03] LABS: ALK PHOS 127 U/L (45-117); BILIRUBIN,TOTAL 0.7 mg/dL (0.2-1.0); TOT PROT 5.4 g/dl (6.4-8.2)
[2016-12-23] MEDS ORDERED: PT OWN MED DRAWER 7, Y5N ONE ×2 (09:39→15:01)
[2016-12-23] MEDS: SPIRONOLACTONE 25 MG TABLET (FP) PO SCH ×2 (09:49→21:46)
[2016-12-23] MEDS: levETIRAcetam 500 MG TABLET (FP) PO SCH ×2 (09:50→21:47)
[2016-12-23] MEDS: FERROUS SO4 325 MG TABLET (FP) PO SCH ×2 (09:50→21:46)
[2016-12-23] MEDS: PANTOPRAZOLE 20 MG TABLET (FP) PO SCH (09:51)
[2016-12-23] MEDS: LAPATINIB DITOSYLATE PO SCH (09:51)
[2016-12-23] MEDS: CAPECITABINE 500 MG TABLET PO SCH ×2 (09:52→21:48)
[2016-12-23] MEDS: CEFTRIAXONE 1 GM in DEXTROSE 5%-WATER - 50 ML IVPB SCH (09:52)
[2016-12-23] MEDS: HEPARIN NA (PORCINE) 5,000 UNITS/ML 1ML VIAL SQ SCH ×2 (09:53→21:46)
[2016-12-23] MEDS: LOSARTAN POTASSIUM 50 MG TABLET (FP) PO SCH (09:56)
[2016-12-23] MEDS: POTASSIUM CHLORIDE TABS 20 MEQ TABLET.ER (FP) PO SCH ×2 (10:39→21:46)
[2016-12-23] MEDS ORDERED: INSULIN (NOVOLOG) ASPART 100 UNITS/ML 10ML VIAL ONE (12:03)
--- NOTE | 2016-12-23 13:07 | PN ---
Progress Note, Physician History of Present Illness: stable no new events - Current Medication List Current Medications: Active Medications Acetaminophen (Tylenol -) 650 mg PO Q6H PRN PRN Reason: FEVER OR PAIN Capecitabine (Xeloda -) 1,000 mg PO BID [facility] Last Admin: 12/23/16 09:52 Dose: 1,000 mg Dexamethasone (Decadron -) 4 mg PO Q6H [facility] Last Admin: 12/23/16 09:49 Dose: 4 mg Ferrous Sulfate (Feosol -) 325 mg PO BID [facility] Last Admin: 12/23/16 09:50 Dose: 325 mg Heparin Sodium (Porcine) (Heparin -) 5,000 unit SQ BID [facility] Last Admin: 12/23/16 09:53 Dose: 5,000 unit Ceftriaxone Sodium 1 gm/ (Dextrose) 50 mls @ 100 mls/hr IVPB DAILY [facility] Last Admin: 12/23/16 09:52 Dose: 100 mls/hr Insulin Aspart (Novolog Vial Sliding Scale -) 1 vial SQ ACHS [facility] PRN Reason: Protocol Last Admin: 12/23/16 12:06 Dose: 6 units Insulin Detemir (Levemir Vial) 45 units SQ BID@0700,1630 [facility] Last Admin: 12/23/16 06:45 Dose: 45 unit Levetiracetam (Keppra -) 500 mg PO BID [facility] Last Admin: 12/23/16 09:50 Dose: 500 mg Losartan Potassium (Cozaar -) 100 mg PO DAILY [facility] Last Admin: 12/23/16 09:56 Dose: 100 mg Non-Formulary Medication (Lapatinib Ditosylate [Tykerb]) 1,250 mg PO DAILY [facility] Last Admin: 12/23/16 09:51 Dose: 1,250 mg Ondansetron HCl (Zofran Injection) 4 mg IVPB Q6H PRN PRN Reason: NAUSEA Pantoprazole Sodium (Protonix -) 20 mg PO DAILY [facility] Last Admin: 12/23/16 09:51 Dose: 20 mg Potassium Chloride (K-Dur -) 20 meq PO BID [facility] Stop: 12/24/16 06:00 Last Admin: 12/23/16 10:39 Dose: 20 meq Spironolactone (Aldactone -) 50 mg PO BID [facility] Last Admin: 12/23/16 09:49 Dose: 50 mg - Objective Vital Signs: Vital Signs Temperature 99.8 F H 12/23/16 08:30 Pulse Rate 76 12/23/16 08:30 Respiratory Rate 20 12/23/16 08:30 Blood Pressure 109/68 12/23/16 08:30 O2 Sat by Pulse Oximetry (%) 97 12/22/16 21:00 Constitutional: Yes: No Distress, Calm HENT: Yes: Atraumatic Cardiovascular: Yes: Regular Rate and Rhythm Respiratory: Yes: Regular, CTA Bilaterally Musculoskeletal: Yes: WNL Extremities: Yes: WNL Neurological: Yes: Alert, Oriented Psychiatric: Yes: Alert, Oriented Labs: CBC, BMP 12/21/16 06:30 12/23/16 06:00 INR, PTT INR 1.04 (0.82-1.09) 12/16/16 13:46 Assessment/Plan patient with multiple medical problems including brain tumor now with uti brain tumor mets weaknss uti plan continue iv for now patient stable will stop abx by monday
--- NOTE | 2016-12-23 23:45 | PN ---
Progress Note, Physician - Current Medication List Current Medications: Active Medications Acetaminophen (Tylenol -) 650 mg PO Q6H PRN PRN Reason: FEVER OR PAIN Capecitabine (Xeloda -) 1,000 mg PO BID [facility] Last Admin: 12/23/16 21:48 Dose: 1,000 mg Dexamethasone (Decadron -) 4 mg PO Q6H [facility] Last Admin: 12/23/16 21:46 Dose: 4 mg Ferrous Sulfate (Feosol -) 325 mg PO BID [facility] Last Admin: 12/23/16 21:46 Dose: 325 mg Heparin Sodium (Porcine) (Heparin -) 5,000 unit SQ BID [facility] Last Admin: 12/23/16 21:46 Dose: 5,000 unit Ceftriaxone Sodium 1 gm/ (Dextrose) 50 mls @ 100 mls/hr IVPB DAILY [facility] Last Admin: 12/23/16 09:52 Dose: 100 mls/hr Insulin Aspart (Novolog Vial Sliding Scale -) 1 vial SQ ACHS [facility] PRN Reason: Protocol Last Admin: 12/23/16 21:47 Dose: 8 units Insulin Detemir (Levemir Vial) 45 units SQ BID@0700,1630 [facility] Last Admin: 12/23/16 17:02 Dose: 45 unit Levetiracetam (Keppra -) 500 mg PO BID [facility] Last Admin: 12/23/16 21:47 Dose: 500 mg Losartan Potassium (Cozaar -) 100 mg PO DAILY [facility] Last Admin: 12/23/16 09:56 Dose: 100 mg Non-Formulary Medication (Lapatinib Ditosylate [Tykerb]) 1,250 mg PO DAILY [facility] Last Admin: 12/23/16 09:51 Dose: 1,250 mg Ondansetron HCl (Zofran Injection) 4 mg IVPB Q6H PRN PRN Reason: NAUSEA Pantoprazole Sodium (Protonix -) 20 mg PO DAILY [facility] Last Admin: 12/23/16 09:51 Dose: 20 mg Potassium Chloride (K-Dur -) 20 meq PO BID [facility] Stop: 12/24/16 06:00 Last Admin: 12/23/16 21:46 Dose: 20 meq Spironolactone (Aldactone -) 50 mg PO BID [facility] Last Admin: 12/23/16 21:46 Dose: 50 mg - Objective Vital Signs: Vital Signs Temperature 98.1 F 12/23/16 17:15 Pulse Rate 68 12/23/16 17:15 Respiratory Rate 20 12/23/16 17:15 Blood Pressure 122/72 12/23/16 17:15 O2 Sat by Pulse Oximetry (%) 97 12/22/16 21:00 Labs: CBC, BMP 12/21/16 06:30 12/23/16 06:00 INR, PTT INR 1.04 (0.82-1.09) 12/16/16 13:46 Problem List - Problems (1) UTI (urinary tract infection) Code(s): N39.0 - URINARY TRACT INFECTION, SITE NOT SPECIFIED (2) Breast CA Code(s): C50.919 - MALIGNANT NEOPLASM OF UNSP SITE OF UNSPECIFIED FEMALE BREAST Qualifiers: Breast location: overlapping sites of breast Laterality: right (3) Diabetes Code(s): E11.9 - TYPE 2 DIABETES MELLITUS WITHOUT COMPLICATIONS Qualifiers: Diabetes mellitus type: type 2 Diabetes mellitus complication status: without complication (4) Hypertension Code(s): I10 - ESSENTIAL (PRIMARY) HYPERTENSION
[2016-12-24] MEDS: DEXAMETHASONE 4 MG TABLET (FP) PO SCH ×4 (03:30→21:17)
[2016-12-24] MEDS: INSULIN SLIDING SCALE (NOVOLOG) 1 VIAL SQ SCH ×4 (06:45→21:28)
[2016-12-24] MEDS: INSULIN DETEMIR 100 UNITS/ML MDV SQ SCH ×2 (06:46→17:08)
[2016-12-24] MEDS ORDERED: cefTRIAXone SODIUM 1 GM VIAL ONE (09:13)
[2016-12-24] MEDS ORDERED: DEXTROSE 5%-WATER - 50 ML IVPB ONE (09:13)
[2016-12-24] MEDS: CEFTRIAXONE 1 GM in DEXTROSE 5%-WATER - 50 ML IVPB SCH (09:17)
[2016-12-24] MEDS: PANTOPRAZOLE 20 MG TABLET (FP) PO SCH (09:17)
[2016-12-24] MEDS: levETIRAcetam 500 MG TABLET (FP) PO SCH ×2 (09:18→21:17)
[2016-12-24] MEDS: FERROUS SO4 325 MG TABLET (FP) PO SCH ×2 (09:18→21:17)
[2016-12-24] MEDS: SPIRONOLACTONE 25 MG TABLET (FP) PO SCH ×2 (09:18→21:17)
[2016-12-24] MEDS: LOSARTAN POTASSIUM 50 MG TABLET (FP) PO SCH (09:18)
[2016-12-24] MEDS: HEPARIN NA (PORCINE) 5,000 UNITS/ML 1ML VIAL SQ SCH ×2 (09:19→21:17)
[2016-12-24] MEDS: LAPATINIB DITOSYLATE PO SCH (09:22)
[2016-12-24] MEDS: CAPECITABINE 500 MG TABLET PO SCH ×2 (09:23→21:20)
[2016-12-24] MEDS ORDERED: PT OWN MED DRAWER 7, Y5N ONE (09:34)
--- NOTE | 2016-12-24 14:12 | PN ---
Progress Note, Physician Chief Complaint: Infectious Disease History of Present Illness: Pt states she feels well Denies pain, fever/chills - Current Medication List Current Medications: Active Medications Acetaminophen (Tylenol -) 650 mg PO Q6H PRN PRN Reason: FEVER OR PAIN Capecitabine (Xeloda -) 1,000 mg PO BID [facility] Last Admin: 12/24/16 09:23 Dose: 1,000 mg Dexamethasone (Decadron -) 4 mg PO Q6H [facility] Last Admin: 12/24/16 09:17 Dose: 4 mg Ferrous Sulfate (Feosol -) 325 mg PO BID [facility] Last Admin: 12/24/16 09:18 Dose: 325 mg Heparin Sodium (Porcine) (Heparin -) 5,000 unit SQ BID [facility] Last Admin: 12/24/16 09:19 Dose: 5,000 unit Ceftriaxone Sodium 1 gm/ (Dextrose) 50 mls @ 100 mls/hr IVPB DAILY [facility] Last Admin: 12/24/16 09:17 Dose: 100 mls/hr Insulin Aspart (Novolog Vial Sliding Scale -) 1 vial SQ ACHS [facility] PRN Reason: Protocol Last Admin: 12/24/16 11:14 Dose: 8 units Insulin Detemir (Levemir Vial) 45 units SQ BID@0700,1630 [facility] Last Admin: 12/24/16 06:46 Dose: 45 unit Levetiracetam (Keppra -) 500 mg PO BID [facility] Last Admin: 12/24/16 09:18 Dose: 500 mg Losartan Potassium (Cozaar -) 100 mg PO DAILY [facility] Last Admin: 12/24/16 09:18 Dose: 100 mg Non-Formulary Medication (Lapatinib Ditosylate [Tykerb]) 1,250 mg PO DAILY [facility] Last Admin: 12/24/16 09:22 Dose: 1,250 mg Ondansetron HCl (Zofran Injection) 4 mg IVPB Q6H PRN PRN Reason: NAUSEA Pantoprazole Sodium (Protonix -) 20 mg PO DAILY [facility] Last Admin: 12/24/16 09:17 Dose: 20 mg Spironolactone (Aldactone -) 50 mg PO BID [facility] Last Admin: 12/24/16 09:18 Dose: 50 mg - Objective Vital Signs: Vital Signs Temperature 98.3 F 12/24/16 08:32 Pulse Rate 47 L 12/24/16 08:32 Respiratory Rate 18 12/24/16 08:32 Blood Pressure 132/85 12/24/16 08:32 O2 Sat by Pulse Oximetry (%) 98 12/24/16 09:00 Constitutional: Yes: No Distress Cardiovascular: Yes: Regular Rate and Rhythm Respiratory: Yes: CTA Bilaterally Gastrointestinal: Yes: Normal Bowel Sounds, Soft Genitourinary: Yes: WNL Musculoskeletal: Yes: WNL Extremities: Yes: WNL Integumentary: Yes: WNL Neurological: Yes: Alert Labs: CBC, BMP 12/21/16 06:30 12/23/16 06:00 INR, PTT INR 1.04 (0.82-1.09) 12/16/16 13:46 Problem List - Problems (1) UTI (urinary tract infection) Code(s): N39.0 - URINARY TRACT INFECTION, SITE NOT SPECIFIED (2) Breast CA Code(s): C50.919 - MALIGNANT NEOPLASM OF UNSP SITE OF UNSPECIFIED FEMALE BREAST Qualifiers: Breast location: overlapping sites of breast Laterality: right (3) Intracranial mass Code(s): R90.0 - INTCRN SPACE-OCCUPYING LESION FOUND ON DX IMAGING OF CNSL Assessment/Plan pt clinically stable will d/c antibiotics tomorrow
--- NOTE | 2016-12-24 22:23 | PN ---
Progress Note, Physician - Current Medication List Current Medications: Active Medications Acetaminophen (Tylenol -) 650 mg PO Q6H PRN PRN Reason: FEVER OR PAIN Capecitabine (Xeloda -) 1,000 mg PO BID [facility] Last Admin: 12/24/16 21:20 Dose: 1,000 mg Dexamethasone (Decadron -) 4 mg PO Q6H [facility] Last Admin: 12/24/16 21:17 Dose: 4 mg Ferrous Sulfate (Feosol -) 325 mg PO BID [facility] Last Admin: 12/24/16 21:17 Dose: 325 mg Heparin Sodium (Porcine) (Heparin -) 5,000 unit SQ BID [facility] Last Admin: 12/24/16 21:17 Dose: 5,000 unit Ceftriaxone Sodium 1 gm/ (Dextrose) 50 mls @ 100 mls/hr IVPB DAILY [facility] Last Admin: 12/24/16 09:17 Dose: 100 mls/hr Insulin Aspart (Novolog Vial Sliding Scale -) 1 vial SQ ACHS [facility] PRN Reason: Protocol Last Admin: 12/24/16 21:28 Dose: 8 units Insulin Detemir (Levemir Vial) 45 units SQ BID@0700,1630 [facility] Last Admin: 12/24/16 17:08 Dose: 45 unit Levetiracetam (Keppra -) 500 mg PO BID [facility] Last Admin: 12/24/16 21:17 Dose: 500 mg Losartan Potassium (Cozaar -) 100 mg PO DAILY [facility] Last Admin: 12/24/16 09:18 Dose: 100 mg Non-Formulary Medication (Lapatinib Ditosylate [Tykerb]) 1,250 mg PO DAILY [facility] Last Admin: 12/24/16 09:22 Dose: 1,250 mg Ondansetron HCl (Zofran Injection) 4 mg IVPB Q6H PRN PRN Reason: NAUSEA Pantoprazole Sodium (Protonix -) 20 mg PO DAILY [facility] Last Admin: 12/24/16 09:17 Dose: 20 mg Spironolactone (Aldactone -) 50 mg PO BID [facility] Last Admin: 12/24/16 21:17 Dose: 50 mg - Objective Vital Signs: Vital Signs Temperature 98.2 F 12/24/16 17:30 Pulse Rate 62 12/24/16 17:30 Respiratory Rate 18 12/24/16 17:30 Blood Pressure 103/68 12/24/16 17:30 O2 Sat by Pulse Oximetry (%) 98 12/24/16 09:00 Labs: CBC, BMP 12/21/16 06:30 12/23/16 06:00 INR, PTT INR 1.04 (0.82-1.09) 12/16/16 13:46 Problem List - Problems (1) UTI (urinary tract infection) Code(s): N39.0 - URINARY TRACT INFECTION, SITE NOT SPECIFIED (2) Breast CA Code(s): C50.919 - MALIGNANT NEOPLASM OF UNSP SITE OF UNSPECIFIED FEMALE BREAST Qualifiers: Breast location: overlapping sites of breast Laterality: right (3) Diabetes Code(s): E11.9 - TYPE 2 DIABETES MELLITUS WITHOUT COMPLICATIONS Qualifiers: Diabetes mellitus type: type 2 Diabetes mellitus complication status: without complication (4) Hypertension Code(s): I10 - ESSENTIAL (PRIMARY) HYPERTENSION
[2016-12-25] MEDS: DEXAMETHASONE 4 MG TABLET (FP) PO SCH ×3 (03:28→15:58)
[2016-12-25] MEDS: INSULIN SLIDING SCALE (NOVOLOG) 1 VIAL SQ SCH ×2 (06:25→11:34)
[2016-12-25] MEDS: INSULIN DETEMIR 100 UNITS/ML MDV SQ SCH (06:26)
[2016-12-25] MEDS ORDERED: cefTRIAXone SODIUM 1 GM VIAL ONE (08:37)
[2016-12-25] MEDS ORDERED: DEXTROSE 5%-WATER - 50 ML IVPB ONE (08:37)
[2016-12-25] MEDS: SPIRONOLACTONE 25 MG TABLET (FP) PO SCH (09:04)
[2016-12-25] MEDS: HEPARIN NA (PORCINE) 5,000 UNITS/ML 1ML VIAL SQ SCH (09:04)
[2016-12-25] MEDS: CEFTRIAXONE 1 GM in DEXTROSE 5%-WATER - 50 ML IVPB SCH (09:04)
[2016-12-25] MEDS: levETIRAcetam 500 MG TABLET (FP) PO SCH (09:04)
[2016-12-25] MEDS: PANTOPRAZOLE 20 MG TABLET (FP) PO SCH (09:04)
[2016-12-25] MEDS: FERROUS SO4 325 MG TABLET (FP) PO SCH (09:05)
[2016-12-25] MEDS: LAPATINIB DITOSYLATE PO SCH (09:05)
[2016-12-25] MEDS: LOSARTAN POTASSIUM 50 MG TABLET (FP) PO SCH (09:05)
[2016-12-25] MEDS: CAPECITABINE 500 MG TABLET PO SCH (09:06)
[2016-12-25] MEDS ORDERED: PT OWN MED DRAWER 7, Y5N ONE (10:44)
[2016-12-25 11:05] VITALS: TEMP 98.4
[2016-12-25] MEDS ORDERED: INSULIN (NOVOLOG) ASPART 100 UNITS/ML 10ML VIAL ONE (11:28)
[2016-12-25 14:37] VITALS: BP 124/27; PULSE 93
--- NOTE | 2016-12-25 15:35 | PN ---
Progress Note, Physician History of Present Illness: Pt feels well. Denies fever, chills, dysuria or other complaints - Current Medication List Current Medications: Active Medications Acetaminophen (Tylenol -) 650 mg PO Q6H PRN PRN Reason: FEVER OR PAIN Capecitabine (Xeloda -) 1,000 mg PO BID [facility] Last Admin: 12/25/16 09:06 Dose: 1,000 mg Dexamethasone (Decadron -) 4 mg PO Q6H [facility] Last Admin: 12/25/16 09:04 Dose: 4 mg Ferrous Sulfate (Feosol -) 325 mg PO BID [facility] Last Admin: 12/25/16 09:05 Dose: 325 mg Heparin Sodium (Porcine) (Heparin -) 5,000 unit SQ BID [facility] Last Admin: 12/25/16 09:04 Dose: 5,000 unit Ceftriaxone Sodium 1 gm/ (Dextrose) 50 mls @ 100 mls/hr IVPB DAILY [facility] Last Admin: 12/25/16 09:04 Dose: 100 mls/hr Insulin Aspart (Novolog Vial Sliding Scale -) 1 vial SQ ACHS [facility] PRN Reason: Protocol Last Admin: 12/25/16 11:34 Dose: 6 units Insulin Detemir (Levemir Vial) 45 units SQ BID@0700,1630 [facility] Last Admin: 12/25/16 06:26 Dose: 45 unit Levetiracetam (Keppra -) 500 mg PO BID [facility] Last Admin: 12/25/16 09:04 Dose: 500 mg Losartan Potassium (Cozaar -) 100 mg PO DAILY [facility] Last Admin: 12/25/16 09:05 Dose: 100 mg Non-Formulary Medication (Lapatinib Ditosylate [Tykerb]) 1,250 mg PO DAILY [facility] Last Admin: 12/25/16 09:05 Dose: 1,250 mg Ondansetron HCl (Zofran Injection) 4 mg IVPB Q6H PRN PRN Reason: NAUSEA Pantoprazole Sodium (Protonix -) 20 mg PO DAILY [facility] Last Admin: 12/25/16 09:04 Dose: 20 mg Spironolactone (Aldactone -) 50 mg PO BID [facility] Last Admin: 12/25/16 09:04 Dose: 50 mg - Objective Vital Signs: Vital Signs Temperature 98.4 F 12/25/16 14:35 Pulse Rate 93 H 12/25/16 14:35 Respiratory Rate 18 12/25/16 14:35 Blood Pressure 124/27 12/25/16 14:35 O2 Sat by Pulse Oximetry (%) 98 12/25/16 09:00 Constitutional: Yes: Well Nourished, No Distress Cardiovascular: Yes: WNL Respiratory: Yes: WNL Gastrointestinal: Yes: WNL Genitourinary: Yes: WNL Extremities: Yes: WNL Neurological: Yes: WNL, Alert Psychiatric: Yes: WNL Labs: CBC, BMP 12/21/16 06:30 12/23/16 06:00 INR, PTT INR 1.04 (0.82-1.09) 12/16/16 13:46 Problem List - Problems (1) UTI (urinary tract infection) Code(s): N39.0 - URINARY TRACT INFECTION, SITE NOT SPECIFIED (2) Breast CA Code(s): C50.919 - MALIGNANT NEOPLASM OF UNSP SITE OF UNSPECIFIED FEMALE BREAST Qualifiers: Breast location: overlapping sites of breast Laterality: right (3) Intracranial mass Code(s): R90.0 - INTCRN SPACE-OCCUPYING LESION FOUND ON DX IMAGING OF CNSL Assessment/Plan E. coli UTI Breast CA Pt symptoms improving antibiotics started on 12/21/16 -- continue Ceftriaxone for now
[2016-12-29 16:30] LABS: RENIN ACTIVITY(PRA) 1.051 ng/mL/hr (0.167-5.380)
== END 2016-12-25 16:55 | disposition home or self-care (01) | DRG 382 ==
LOC: JER 12:57 → JERBED 15:23 → JICU 16:37 → J8W 12-17 18:36
PROVIDERS: ADMIT Internal Medicine; ATTEND Internal Medicine
DX: C50.919 Malignant neoplasm of unspecified site of unspecified female breast (principal); C79.31 Secondary malignant neoplasm of brain; G93.6 Cerebral edema; Z17.0 Estrogen receptor positive status [ER+]; C79.51 Secondary malignant neoplasm of bone; E88.81 Metabolic syndrome and other insulin resistance; E11.65 Type 2 diabetes mellitus with hyperglycemia; N39.0 Urinary tract infection, site not specified; B96.29 Other Escherichia coli [E. coli] as the cause of diseases classified elsewhere; E87.6 Hypokalemia; Z85.841 Personal history of malignant neoplasm of brain; Z79.84 Long term (current) use of oral hypoglycemic drugs; I10 Essential (primary) hypertension; G40.89 Other seizures; D64.9 Anemia, unspecified; Z91.81 History of falling; I25.10 Atherosclerotic heart disease of native coronary artery without angina pectoris; R53.1 Weakness; E26.9 Hyperaldosteronism, unspecified
CPT/HCPCS: 36415; 70552-TC; 71010-TC; 80053; 81003; 82088; 82533; 82947; 83735; 84132; 84244; 85025; 85027; 85610; 86850; 86900; 86901; 87040; 87086; 87186; 97116-GP; 97162-GP; 97163-GP; 99283-25; J1644; J8521

== ENCOUNTER → 2017-04-15 | Emergency (ER) | payer OTHER ==
[~2017-04-15] MED LIST: ACETAMINOPHEN 1000 MG/100 ML VIAL (NON FORMULARY) IVPB ONE; ACETAMINOPHEN INJECTION 100 ML IVPB ONE; morphine CARPU-JECT 2 MG/1 ML DISP.SYRIN IVPUSH ONE; morphine SULFATE 4 MG/ML VIAL ONE
[2017-04-15 10:30] VITALS: BP 99/69; PULSE 81; TEMP 99.2; BMI 31.6
--- NOTE | 2017-04-15 10:49 | PDOC ---
Attending Attestation - HPI HPI: 04/15/17 11:47 The patient is a 56 year old female with a significant PMH of breast CA, HTN, non-insulin dependent diabetes, and brain tumor (removed 2014) with associated seizures who presents to the emergency department with a headache beginning approximately 2 weeks ago. The patient describes the headache as intermittent and diffuse, and reports going to her PCP for evaluation. She notes receiving a medication from her PCP that relieves her headache, but reports that the headache returns until she takes the medication again. The patient also reports falling once last night in the shower and once this morning while getting out of bed, citing her headache as the cause. The patient denies hitting her head or any LOC. Allergies: Percocet Past surgical history: Brain tumor removal. Social history: No reported cigarette, alcohol, or drug use. PCP: Dr. Bakari Pool Oncologist: Dr. Gerson Kiser - Physicial Exam PE: 04/15/17 12:05 GENERAL: Awake, alert, and fully oriented, in no acute distress HEAD: No signs of trauma EYES: PERRLA, EOMI, sclera anicteric, conjunctiva clear ENT: Auricles normal inspection, hearing grossly normal, nares patent, oropharynx clear without exudates. Moist mucosa NECK: Normal ROM, supple, no lymphadenopathy, JVD, or masses LUNGS: Breath sounds equal, clear to auscultation bilaterally. No wheezes, and no crackles HEART: Regular rate and rhythm, normal S1 and S2, no murmurs, rubs or gallops ABDOMEN: Soft, nontender, normoactive bowel sounds. No guarding, no rebound. No masses EXTREMITIES: Normal range of motion, no edema. No clubbing or cyanosis. No cords, erythema, or tenderness NEUROLOGICAL: Cranial nerves II through XII grossly intact. Normal speech. SKIN: Warm, Dry, normal turgor, no rashes or lesions noted. <Jameel Osorio - Last Filed: 04/15/17 12:05> - Resident Resident Name: Ramsey Mendez - ED Attending Attestation I have performed the following: I have examined & evaluated the patient, The case was reviewed & discussed with the resident, I agree w/resident's findings & plan, Exceptions are as noted - Medical Decision Making Case d/w Dr. Navas regarding head CT findings. Recommended a course of steroids, as patient has already had multiple treatments for brain mass without significant improovment. F/u as outpatient. <Emely Young - Last Filed: 04/16/17 16:07>
--- NOTE | 2017-04-15 10:53 | PDOC ---
History of Present Illness - General Chief Complaint: Injury Stated Complaint: HEADACHE, BACK PAIN Time Seen by Provider: 04/15/17 10:45 - History of Present Illness Initial Comments: 04/15/17 10:53 Ms. Misael Maciel is a 56 yo female with pmh of Breast cancer (R, for which she takes chemotherapy) and brain tumor (unknown) both of which started in 2014, as well as IDDM and HTN who presents complaining of 2 week history of headache. She reports that she had seen her PCP for this recently and been given a new headache medication (Repan) for the pain. In addition to this she reports falling last night as she got into the shower and also falling this morning as she got out of the bed. She reports both instances were "because of the headache." She denies hitting her head on either instance or having any LOC. Allergies: Percocet Past History - Past Medical History Allergies/Adverse Reactions: Allergies Allergy/AdvReac Type Severity Reaction Status Date / Time oxycodone HCl [From Percocet] Allergy Verified 04/15/17 10:25 Home Medications: Ambulatory Orders Losartan/Hydrochlorothiazide [Losartan-Hctz 100-25 mg Tab] 1 each PO DAILY 03/13 Acetaminophen [Tylenol .Regular Strength -] 650 mg PO Q6H #30 tablet 03/22/16 Ferrous Sulfate 325 mg PO BID 03/22/16 Omeprazole 20 mg PO DAILY 03/22/16 Capecitabine 1,000 mg PO BID 12/16/16 Dexamethasone [Decadron -] 4 mg PO TID 12/16/16 Lapatinib Ditosylate [Tykerb] 1,250 mg PO DAILY 12/16/16 Capecitabine [Xeloda -] 1,000 mg PO BID tablet 12/25/16 Dexamethasone [Decadron -] 4 mg PO Q6H #120 tablet 12/25/16 Insulin (Levemir) [Levemir Vial] 45 units SQ BID@0700,1630 ml 12/25/16 Levetiracetam [Keppra -] 500 mg PO BID tablet 12/25/16 Potassium Chloride [K-Dur -] 20 meq PO DAILY #30 tablet.er 12/25/16 Dexamethasone [Decadron -] 4 mg PO QID #28 tablet 04/15/17 Anemia: Yes Asthma: No Cancer: Yes (BREAST/BREAST) Cardiac Disorders: No CVA: No COPD: No CHF: No Dementia: No Diabetes: Yes GI Disorders: No Disorders: No HTN: Yes Hypercholesterolemia: No Liver Disease: No Seizures: Yes Thyroid Disease: No - Surgical History Abdominal Surgery: No Appendectomy: No Cardiac Surgery: No Cholecystectomy: No Lung Surgery: No Neurologic Surgery: Yes (RIGHT PARIETAL CRANIECTOMY 2015 FOR TUMOR) Orthopedic Surgery: No - Immunization History Immunization Up to Date: Yes - Suicide/Smoking/Psychosocial Hx Smoking Status: No Smoking History: Never smoked Have you smoked in the past 12 months: No Number of Cigarettes Smoked Daily: 0 Information on smoking cessation initiated: No Hx Alcohol Use: No Drug/Substance Use Hx: No Substance Use Type: None Hx Substance Use Treatment: No Review of Systems - Review of Systems Comments:: 04/15/17 10:57 GENERAL/CONSTITUTIONAL: No fever or chills. No weakness. HEAD, EYES, EARS, NOSE AND THROAT: No change in vision. No ear pain or discharge. No sore throat. CARDIOVASCULAR: No chest pain or shortness of breath RESPIRATORY: No cough, wheezing, or hemoptysis. GASTROINTESTINAL: No nausea, vomiting, diarrhea or constipation. GENITOURINARY: No dysuria, frequency, or change in urination. MUSCULOSKELETAL: No joint or muscle swelling or pain. No neck or back pain. SKIN: No rash NEUROLOGIC: +Headache as above, no vertigo, loss of consciousness, or change in strength/sensation. ENDOCRINE: No increased thirst. No abnormal weight change HEMATOLOGIC/LYMPHATIC: No anemia, easy bleeding, or history of blood clots. ALLERGIC/IMMUNOLOGIC: No hives or skin allergy. 04/15/17 10:58 *Physical Exam - Vital Signs Last Vital Signs Temp Pulse Resp BP Pulse Ox 99.2 F 81 16 99/69 96 04/15/17 10:26 04/15/17 10:26 04/15/17 10:26 04/15/17 10:26 04/15/17 10:26 - Physical Exam Comments: 04/15/17 10:57 GENERAL: +Patient observed to become slightly dazed during exam, but ended and was awake, alert, and fully oriented HEAD: No signs of trauma, normocephalic, atraumatic EYES: PERRLA, EOMI, sclera anicteric, conjunctiva clear ENT: Auricles normal inspection, hearing grossly normal, nares patent, oropharynx clear without exudates. Moist mucosa NECK: Normal ROM, supple, no lymphadenopathy, JVD, or masses LUNGS: No distress, speaks full sentences, clear to auscultation bilaterally HEART: Regular rate and rhythm, normal S1 and S2, no murmurs, rubs or gallops, peripheral pulses normal and equal bilaterally. ABDOMEN: Soft, nontender, normoactive bowel sounds. No guarding, no rebound. No masses EXTREMITIES: Normal inspection, Normal range of motion, no edema. No clubbing or cyanosis. NEUROLOGICAL: Cranial nerves II through XII grossly intact. Normal speech, normal gait, no focal sensorimotor deficits SKIN: Warm, Dry, normal turgor, no rashes or lesions noted. ED Treatment Course - LABORATORY CBC & Chemistry Diagram: 04/15/17 12:00 04/15/17 12:00 Medical Decision Making - Medical Decision Making 04/15/17 17:34 With 2 falls in 24 hours and a 2 week headache there was concern for neurological process so CT was ordered. Head CT revealed extensive vasogenic edema involving right cerebral hemisphere w/ compression of right lateral ventricle and midline shift. Neurosurgery consulted accordingly (Dr. Navas). Neurosurgeon is very familiar with patient and advised that there are no neurological interventions left to be done. Advised prednisone 4mg QID for symptomatic relief. Will comply with recommendations and have f/u with PCP and neurosurgery outpatient. 04/15/17 17:52 *DC/Admit/Observation/Transfer Diagnosis at time of Disposition: Vasogenic cerebral edema - Discharge Dispostion Disposition: HOME - Prescriptions Prescriptions: Dexamethasone [Decadron -] 4 mg PO QID #28 tablet - Referrals Referrals: Bakari Pool MD [Primary Care Provider] - - Patient Instructions Printed Discharge Instructions: How to Prevent Falls Additional Instructions: Please follow up with PCP / Neurosurgery when available and increase dexamethasone to 4mg QID from now on. - Post Discharge Activity
[2017-04-15 12:19] LABS: BASOPHIL 0.9 % (0-2.0); EOSINOPHIL 2.4 % (0-4.5); MCHC 31.8 g/dl (32.0-36.0); MEAN CELL VOLUME 78.8 fl (80-96); NEUTROPHILS 68.7 % (42.8-82.8); PLATELET COUNT 242 K/MM3 (134-434); WHITE BLOOD COUNT 6.9 K/mm3 (4.0-10.0)
== END | disposition home or self-care (01) ==
LOC: JER 10:12
DX: G93.6 Cerebral edema (principal); I10 Essential (primary) hypertension; E11.9 Type 2 diabetes mellitus without complications; Z79.4 Long term (current) use of insulin; Z85.3 Personal history of malignant neoplasm of breast; Z85.841 Personal history of malignant neoplasm of brain; W06.XXXA Fall from bed, initial encounter; Y93.89 Activity, other specified; Y92.032 Bedroom in apartment as the place of occurrence of the external cause
CPT/HCPCS: 36415; 70450-TC; 85025; 86850; 86900; 86901; 99281-25

== ENCOUNTER 2017-05-13 10:16 | Inpatient (IN) | payer OTHER ==
[2017-05-13 10:30] VITALS: BMI 32.1
[2017-05-13] MEDS ORDERED: SODIUM CHLORIDE 0.9% 1000 ML INFUS.BAG IV STA (10:39)
[2017-05-13] MEDS ORDERED: ACETAMINOPHEN 1000 MG/100 ML VIAL (NON FORMULARY) IVPB ONE (10:41)
[2017-05-13 10:54] LABS: BASO % 0.1 % (0-2.0); EOS % 0.2 % (0-4.5); HEMATOCRIT 30.5 % (32.4-45.2); HEMOGLOBIN 9.5 GM/dL (10.7-15.3); MCH 24.3 pg (25.7-33.7); MCHC 31.2 g/dl (32.0-36.0); MEAN CELL VOLUME 77.7 fl (80-96); MEAN PLT VOLUME 10.4 fl (7.5-11.1); MONO % 7.1 % (3.8-10.2); NEUT % 86.6 % (42.8-82.8); PLATELET COUNT 116 K/MM3 (134-434); RBC 3.92 M/mm3 (3.60-5.2); RDW 21.9 % (11.6-15.6); WHITE BLOOD COUNT 13.1 K/mm3 (4.0-10.0)
[2017-05-13 11:04] LABS: VENOUS PC02 40.3 mmHg (38-52); VENOUS PH 7.41 (7.32-7.42); VENOUS PO2 25.7 mmHg (28-48)
[2017-05-13] MEDS ORDERED: PIPERACILLIN/TAZOB 4.5 GM 4.5 GM in DEXTROSE 5%-WATER - 100 ML IVPB ONE (11:14)
[2017-05-13] MEDS ORDERED: VANCOMYCIN 1,000 MG in DEXTROSE 5%-WATER - 250 ML IVPB ONE (11:14)
[2017-05-13 11:22] LABS: ALBUMIN 2.2 g/dl (3.4-5.0); ANION GAP 14 (8-16); BLOOD UREA NITROGEN 22 mg/dL (7-18); CALCIUM 8.5 mg/dL (8.5-10.1); CHLORIDE 95 mmol/L (98-107); CO2 22 mmol/L (21-32); CREATININE 1.4 mg/dL (0.55-1.02); SGPT/ALT 26 U/L (12-78); SODIUM 131 mmol/L (136-145)
--- NOTE | 2017-05-13 11:23 | PDOC ---
History of Present Illness - General History Source: Patient Exam Limitations: No Limitations - History of Present Illness Initial Comments: 05/13/17 12:54 The patient is a 56 year old female, with a significant past medical history of Breast CA (on daily PO chemo only), HTN, NIDDM, and Brain tumor (no current tx, on steroids) who presents to the emergency department with generalized weakness and fever today. Patient reports generalized weakness which began this morning as she was attempting to get up from bed. Patient also notes fever (tmax 102). Patient denies any changes to chemotherapy medications however notes her steroids have been decreased recently. Patient denies chest pain, headache or dizziness. Denies cough, or SOB. Patient denies abdominal pain, nausea, vomit, diarrhea or constipation. Patient denies dysuria, frequency, urgency or hematuria. Patient denies sick contacts or recent travel. Allergies: oxycodone HCl Past surgical history: R parietal craniotomy for brain tumour. Social history: None PCP: Dr. Bakari Pool <Marilee Li - Last Filed: 05/13/17 12:58> <Carlota Jorge - Last Filed: 05/13/17 14:16> - General Chief Complaint: SIRS, Suspected/Possible Stated Complaint: GENERALIZED PAIN Time Seen by Provider: 05/13/17 10:28 Past History <Marilee Li - Last Filed: 05/13/17 12:58> - Past Medical History Anemia: Yes Asthma: No Cancer: Yes (BREAST/BREAST) Cardiac Disorders: No CVA: No COPD: No CHF: No Dementia: No Diabetes: Yes GI Disorders: No Disorders: No HTN: Yes Hypercholesterolemia: No Liver Disease: No Seizures: Yes Thyroid Disease: No - Surgical History Abdominal Surgery: No Appendectomy: No Cardiac Surgery: No Cholecystectomy: No Lung Surgery: No Neurologic Surgery: Yes (RIGHT PARIETAL CRANIECTOMY 2015 FOR TUMOR) Orthopedic Surgery: No - Immunization History Immunization Up to Date: Yes - Suicide/Smoking/Psychosocial Hx Smoking Status: No Smoking History: Never smoked Have you smoked in the past 12 months: No Number of Cigarettes Smoked Daily: 0 Hx Alcohol Use: No Drug/Substance Use Hx: No Substance Use Type: None Hx Substance Use Treatment: No <Carlota Jorge - Last Filed: 05/13/17 14:16> - Past Medical History Allergies/Adverse Reactions: Allergies Allergy/AdvReac Type Severity Reaction Status Date / Time oxycodone HCl [From Percocet] Allergy Verified 05/13/17 10:26 Home Medications: Ambulatory Orders Losartan/Hydrochlorothiazide [Losartan-Hctz 100-25 mg Tab] 1 each PO DAILY 03/13 Acetaminophen [Tylenol .Regular Strength -] 650 mg PO Q6H #30 tablet 03/22/16 Ferrous Sulfate 325 mg PO BID 03/22/16 Omeprazole 20 mg PO DAILY 03/22/16 Capecitabine 1,000 mg PO BID 12/16/16 Dexamethasone [Decadron -] 4 mg PO TID 12/16/16 Lapatinib Ditosylate [Tykerb] 1,250 mg PO DAILY 12/16/16 Capecitabine [Xeloda -] 1,000 mg PO BID tablet 12/25/16 Dexamethasone [Decadron -] 4 mg PO Q6H #120 tablet 12/25/16 Insulin (Levemir) [Levemir Vial] 45 units SQ BID@0700,1630 ml 12/25/16 Levetiracetam [Keppra -] 500 mg PO BID tablet 12/25/16 Potassium Chloride [K-Dur -] 20 meq PO DAILY #30 tablet.er 12/25/16 Dexamethasone [Decadron -] 4 mg PO QID #28 tablet 04/15/17 Review of Systems - Review of Systems Able to Perform ROS?: Yes Comments:: 05/13/17 12:55 GENERAL/CONSTITUTIONAL: + fever. No chills. +Generalized weakness. HEAD, EYES, EARS, NOSE AND THROAT: No change in vision. No ear pain or discharge. No sore throat. GASTROINTESTINAL: No nausea, vomiting, diarrhea or constipation. GENITOURINARY: No dysuria, frequency, or change in urination. CARDIOVASCULAR: No chest pain or shortness of breath. RESPIRATORY: No cough, wheezing, or hemoptysis. MUSCULOSKELETAL: No joint or muscle swelling or pain. No neck or back pain. SKIN: No rash NEUROLOGIC: No headache, vertigo, loss of consciousness, or change in strength/ sensation. ENDOCRINE: No increased thirst. No abnormal weight change. HEMATOLOGIC/LYMPHATIC: No anemia, easy bleeding, or history of blood clots. ALLERGIC/IMMUNOLOGIC: No hives or skin allergy. <Marilee Li - Last Filed: 05/13/17 12:58> *Physical Exam - Vital Signs Last Vital Signs Temp Pulse Resp BP Pulse Ox 102 F H 119 H 20 107/71 98 05/13/17 10:56 05/13/17 10:21 05/13/17 10:56 05/13/17 10:21 05/13/17 10:56 - Physical Exam Comments: 05/13/17 12:55 GENERAL: Awake, alert, and fully oriented, in no acute distress HEAD: No signs of trauma EYES: PERRLA, EOMI, sclera anicteric, conjunctiva clear ENT: Auricles normal inspection, hearing grossly normal, nares patent, oropharynx clear without exudates. +Dry mucous membranes. NECK: Normal ROM, supple, no lymphadenopathy, JVD, or masses LUNGS: Breath sounds equal, clear to auscultation bilaterally. No wheezes, and no crackles HEART: Regular rate and rhythm, normal S1 and S2, no murmurs, rubs or gallops ABDOMEN: Soft, nontender, normoactive bowel sounds. No guarding, no rebound. No masses EXTREMITIES: Normal range of motion. No clubbing or cyanosis. No cords, erythema , or tenderness. +Bilateral trace symmetric pitting pedal edema. NEUROLOGICAL: Normal speech, cranial nerves intact, negative pronator drift, 5/ 5 strength in all 4 extremities, normal sensation to light touch in all 4 extremities, normal cerebellar exam, normal gait, normal reflexes and tone SKIN: Warm, Dry, normal turgor, no rashes or lesions noted. <Marilee Li - Last Filed: 05/13/17 12:58> - Vital Signs Last Vital Signs Temp Pulse Resp BP Pulse Ox 102 F H 119 H 20 107/71 98 05/13/17 10:56 05/13/17 10:21 05/13/17 10:56 05/13/17 10:21 05/13/17 10:56 <Carlota Jorge - Last Filed: 05/13/17 14:16> ED Treatment Course - LABORATORY CBC & Chemistry Diagram: 05/13/17 10:39 05/13/17 10:39 - ADDITIONAL ORDERS Additional order review: Laboratory Results 05/13/17 05/13/17 05/13/17 10:39 10:39 10:39 VBG pH POC VBG pCO2 POC VBG pO2 Mixed VBG HCO3 Sodium 131 L Potassium 4.2 Chloride 95 L Carbon Dioxide 22 Anion Gap 14 BUN 22 H Creatinine 1.4 H D Creat Clearance w eGFR 38.76 Random Glucose 334 H* D Lactic Acid 3.6 H* Calcium 8.5 Total Bilirubin 0.8 AST 48 H D ALT 26 Alkaline Phosphatase 169 H D Creatine Kinase 158 Creatine Kinase Index 0.6 CK-MB (CK-2) < 1.000 Troponin I < 0.02 Total Protein 6.1 L Albumin 2.2 L Blood Type O NEGATIVE Antibody Screen Negative 05/13/17 10:39 VBG pH 7.41 POC VBG pCO2 40.3 POC VBG pO2 25.7 L Mixed VBG HCO3 25.2 H Sodium Potassium Chloride Carbon Dioxide Anion Gap BUN Creatinine Creat Clearance w eGFR Random Glucose Lactic Acid Calcium Total Bilirubin AST ALT Alkaline Phosphatase Creatine Kinase Creatine Kinase Index CK-MB (CK-2) Troponin I Total Protein Albumin Blood Type Antibody Screen 05/13/17 10:39 RBC 3.92 MCV 77.7 L MCHC 31.2 L RDW 21.9 H D MPV 10.4 D Neutrophils % 86.6 H D Lymphocytes % 6.0 L D Monocytes % 7.1 Eosinophils % 0.2 D Basophils % 0.1 - Medications Given in the ED: ED Medications Discontinued Medications Generic Name Dose Route Start Last Admin Trade Name Angela PRN Reason Stop Dose Admin Acetaminophen 1,000 mg 05/13/17 10:41 05/13/17 10:58 Ofirmev Injection - IVPB 05/13/17 10:42 1,000 mg ONCE ONE Administration Vancomycin HCl 1,000 mg/ 250 mls @ 250 mls/hr 05/13/17 11:14 05/13/17 11:16 Dextrose IVPB 05/13/17 12:13 250 mls/hr ONCE ONE Administration Protocol Piperacillin Sod/Tazobactam 100 mls @ 200 mls/hr 05/13/17 11:14 05/13/17 11: 16 Sod 4.5 gm/ Dextrose IVPB 05/13/17 11:43 200 mls/hr ONCE ONE Administration Protocol Sodium Chloride 2,000 ml 05/13/17 10:39 05/13/17 10:58 Normal Saline - IV 05/13/17 10:40 2,000 ml ONCE STA Administration <Marilee Li - Last Filed: 05/13/17 12:58> - LABORATORY CBC & Chemistry Diagram: 05/13/17 10:39 05/13/17 10:39 - ADDITIONAL ORDERS Additional order review: Laboratory Results 05/13/17 10:39 VBG pH 7.41 POC VBG pCO2 40.3 POC VBG pO2 25.7 L Mixed VBG HCO3 25.2 H 05/13/17 10:39 RBC 3.92 MCV 77.7 L MCHC 31.2 L RDW 21.9 H D MPV 10.4 D Neutrophils % 86.6 H D Lymphocytes % 6.0 L D Monocytes % 7.1 Eosinophils % 0.2 D Basophils % 0.1 - RADIOLOGY Radiology Studies Ordered: Category Date Time Status CHEST X-RAY PORTABLE* [RAD] Stat Radiology 05/13/17 10:39 Completed - Medications Given in the ED: ED Medications Discontinued Medications Generic Name Dose Route Start Last Admin Trade Name Freq PRN Reason Stop Dose Admin Acetaminophen 1,000 mg 05/13/17 10:41 05/13/17 10:58 Ofirmev Injection - IVPB 05/13/17 10:42 1,000 mg ONCE ONE Administration Sodium Chloride 2,000 ml 05/13/17 10:39 05/13/17 10:58 Normal Saline - IV 05/13/17 10:40 2,000 ml ONCE STA Administration <Carlota Jorge - Last Filed: 05/13/17 14:16> Medical Decision Making - Medical Decision Making 05/13/17 12:48 Dr. Galindo paged via phone answering service. Awaiting call back. <Marilee Li - Last Filed: 05/13/17 12:58> - Medical Decision Making 05/13/17 11:42 56-year-old female with multiple medical problems including breast CA on daily by mouth chemotherapy, and brain mass on daily steroids presents with generalized weakness since this morning. On arrival, the patient was orally febrile to 102.2 and tachycardic to 119. Blood pressure was in the low 100s systolic, patient reports this is her baseline. On exam, the patient appears lethargic, but alert. Remainder of exam within normal limits. Unclear source of infection, possibly influenza as the patient has many grandchildren running around at home. Differential also includes pneumonia versus UTI. Plan: -sepsis labs -CXR -UA -flu swab -IVF-tylenol -reassess 05/13/17 14:14 lactate 3.6. covered pt with vanc/zosyn. Pt recieving 2L NS. HR down to 99. UA + for infx, already received abx. Discussed with admitting MATERIAL SPECIALIST Jena, pt is admitted to Dr. Cunningham for further mgmt. Case discussed in detail with admitting physician including history, physical exam and ancillary studies. Admitting physician has assumed care for the patient, will follow all pending diagnostics and will complete the evaluation and treatment. <Carlota Jorge - Last Filed: 05/13/17 14:16> *DC/Admit/Observation/Transfer - Attestations Scribe Attestion: 05/13/17 12:56 Documentation prepared by Marilee Li, acting as medical insurance coding specialist for Carlota Jorge MD, <Marilee Li - Last Filed: 05/13/17 12:58> - Discharge Dispostion Admit: Yes - Attestations Physician Attestion: 05/13/17 14:14 I, Dr. Carlota Jorge MD, attest that this document has been prepared under my direction and personally reviewed by me in its entirety. I further attest, that it accurately reflects all work, treatment, procedures and medical decision -making performed by me. <Carlota Jorge - Last Filed: 05/13/17 14:16> Diagnosis at time of Disposition: Sepsis - Discharge Dispostion Condition at time of disposition: Stable - Referrals Referrals: Sintia Pool [Primary Care Provider] - - Patient Instructions - Post Discharge Activity
[2017-05-13 11:26] LABS: ALK PHOS 169 U/L (45-117); BILIRUBIN,TOTAL 0.8 mg/dL (0.2-1.0); POTASSIUM 4.2 mmol/L (3.5-5.1); SGOT/AST 48 U/L (15-37); TOT PROT 6.1 g/dl (6.4-8.2)
[2017-05-13 11:28] LABS: GLUCOSE,RANDOM 334 mg/dL (74-106)
[2017-05-13 13:12] LABS: URINE APPEARANCE CLOUDY; URINE BILIRUBIN NEGATIVE (NEGATIVE); URINE BLOOD 3+ (NEGATIVE); URINE COLOR AMBER; URINE GLUCOSE (UA) 2+ (NEGATIVE); URINE KETONE NEGATIVE (NEGATIVE); URINE NITRITE NEGATIVE (NEGATIVE); URINE UROBILINOGEN NEGATIVE mg/dL (0.2-1.0)
[2017-05-13 13:13] LABS: URINE LEUK ESTERASE 2+ (NEGATIVE); URINE PROTEIN 2+ (NEGATIVE)
[2017-05-13 13:17] LABS: EPI CELLS RARE /HPF (FEW); GRANULAR CASTS 12 /lpf; URINE BACTERIA MANY /hpf (NONE SEEN); URINE HYALINE CAST 6 /lpf; URINE MUCUS RARE
[2017-05-13] MEDS ORDERED: SODIUM CHLORIDE 0.9% 500 ML INFUS.BAG IV ONE (14:12)
[2017-05-13 14:23] LABS: INR 1.27 (0.82-1.09); PROTHROMBIN TIME (PATIENT) 14.4 SEC (9.98-11.88)
[2017-05-13 14:26] LABS: ACTIVATED PTT 28.5 SECONDS (26.9-34.4)
--- NOTE | 2017-05-13 16:57 | HP ---
Admitting History and Physical - Admission Chief Complaint: legthargy, fever History of Present Illness: HPI: This is 56 year old female with HTN, DM II, breast Ca on daily chemo PO, metastatic brain ca (TITLE I ASSISTANT mets in 2014- treated with stereotactic RT) with recent R parietal craniotomy for brain tumor, not on steroids presented to the ED today for weakness, lethargy and fever. She was unable to get out of bed this morning, after going to bed in her usual state of health. Her chemo regimen hasn't changed, however per ED record her steroids have decreased. Currently, in the ED pt feels better, able to lift herself up right in bed, denies chest pain, chills, sob, abdominal pain, nausea, vomiting. She states she urinates without issue. History Source: Patient Limitations to Obtaining History: No Limitations - Past Medical History TITLE I ASSISTANT: Yes: Other (TITLE I ASSISTANT mets in 2014- treated with stereotactic RT) Cardiovascular: Yes: HTN Heme/Onc: Yes: Cancer (breast cancer-invasive ductal poorly differenciated with necrosis 12/03) Endocrine: Yes: Diabetes Mellitus - Past Surgical History Past Surgical History: Yes: Breast Biopsy, - Smoking History Smoking history: Never smoked Have you smoked in the past 12 months: No Aproximately how many cigarettes per day: 0 - Alcohol/Substance Use Hx Alcohol Use: No History of Substance Use: reports: None - Social History Usual Living Arrangement: Yes: With Child ADL: Support Services 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 History of Recent Travel: No Home Medications - Allergies Allergies/Adverse Reactions: Allergies Allergy/AdvReac Type Severity Reaction Status Date / Time oxycodone HCl [From Percocet] Allergy Verified 05/13/17 10:26 - Home Medications Home Medications: Ambulatory Orders Losartan/Hydrochlorothiazide [Losartan-Hctz 100-25 mg Tab] 1 each PO DAILY 03/13 Acetaminophen [Tylenol .Regular Strength -] 650 mg PO Q6H #30 tablet 03/22/16 Ferrous Sulfate 325 mg PO BID 03/22/16 Omeprazole 20 mg PO DAILY 03/22/16 Capecitabine 1,000 mg PO BID 12/16/16 Dexamethasone [Decadron -] 4 mg PO TID 12/16/16 Lapatinib Ditosylate [Tykerb] 1,250 mg PO DAILY 12/16/16 Capecitabine [Xeloda -] 1,000 mg PO BID tablet 12/25/16 Dexamethasone [Decadron -] 4 mg PO Q6H #120 tablet 12/25/16 Insulin (Levemir) [Levemir Vial] 45 units SQ BID@0700,1630 ml 12/25/16 Levetiracetam [Keppra -] 500 mg PO BID tablet 12/25/16 Potassium Chloride [K-Dur -] 20 meq PO DAILY #30 tablet.er 12/25/16 Dexamethasone [Decadron -] 4 mg PO QID #28 tablet 04/15/17 Family Disease History - Family Disease History Family Disease History: Other: Grandparent (asthma), Father ( of unknown cause), Mother (htn), Brother (3B healthy and living), Sister (4S healthy and living) Review of Systems - Review of Systems Constitutional: reports: Fever, Lethargy, Weakness Eyes: reports: No Symptoms HENT: reports: No Symptoms Neck: reports: No Symptoms Cardiovascular: reports: No Symptoms Respiratory: reports: No Symptoms Gastrointestinal: reports: No Symptoms Genitourinary: reports: No Symptoms Musculoskeletal: reports: No Symptoms Integumentary: reports: No Symptoms Neurological: reports: No Symptoms Endocrine: reports: No Symptoms Hematology/Lymphatic: reports: No Symptoms Psychiatric: reports: No Symptoms Physical Examination Vital Signs: Vital Signs Temperature 99.8 F H 05/13/17 14:24 Pulse Rate 82 05/13/17 14:24 Respiratory Rate 20 05/13/17 14:24 Blood Pressure 134/80 05/13/17 14:24 O2 Sat by Pulse Oximetry (%) 98 05/13/17 14:24 Constitutional: Yes: Calm Eyes: Yes: Conjunctiva Clear HENT: Yes: Atraumatic Neck: Yes: Supple Cardiovascular: Yes: Regular Rate and Rhythm, S1, S2 Respiratory: Yes: Regular, CTA Bilaterally Gastrointestinal: Yes: Normal Bowel Sounds, Soft Breast(s): Yes: Right (Mass to 4pm, 6-7 oclock firm mass + tenderness to palpation) Extremities: Yes: WNL Edema: Yes Edema: LLE: Trace, RLE: Trace Peripheral Pulses WNL: Yes Integumentary: Yes: WNL Neurological: Yes: Alert, Oriented, Cran Nerves II-XII Intact Psychiatric: Yes: Alert, Oriented Labs: CBC, BMP 05/13/17 10:39 05/13/17 10:39 Imaging - Results Chest X-ray: Report Reviewed, Image Reviewed (no acute pathology) Problem List - Problems (1) Sepsis Code(s): A41.9 - SEPSIS, UNSPECIFIED ORGANISM (2) Anemia Code(s): D64.9 - ANEMIA, UNSPECIFIED Qualifiers: Anemia type: unspecified type Qualified Code(s): D64.9 - Anemia, unspecified (3) Breast CA Code(s): C50.919 - MALIGNANT NEOPLASM OF UNSP SITE OF UNSPECIFIED FEMALE BREAST Qualifiers: Breast location: overlapping sites of breast Laterality: right (4) Diabetes Code(s): E11.9 - TYPE 2 DIABETES MELLITUS WITHOUT COMPLICATIONS Qualifiers: Diabetes mellitus type: type 2 Diabetes mellitus complication status: without complication (5) Hypertension Code(s): I10 - ESSENTIAL (PRIMARY) HYPERTENSION (6) UTI (urinary tract infection) Code(s): N39.0 - URINARY TRACT INFECTION, SITE NOT SPECIFIED Assessment/Plan Assessment: 56 year old female with breast and metastatic brain ca, HTN, DM II admitted with increased lethargy and weakness found to have UTI Plan: 1. Sepsis d/t UTI - Vanco/zosyn in ED - Start ceftriaxone - Urine cx pending - S/p @2L NS in ED - Continue ns 83cc/hr - Follow blood cx 2. Breast/brain CA - Pharmacy does not carry xeloda,tykrb pt will need to bring own - Keppra BID - Heme/oncology consulted 3. HTN - Continue Losartan/HCTZ 4. DM II - Levemir 45units BID - ISS, BGM ACHS 5. SALLY - Due to sepsis - Fluids as above 6. Hyponatremia - Corrected 136 7. Thrombocytopenia - Possibly due to infection vs ca 8. DVT ppx - SCDs b/l Visit type - Emergency Visit Emergency Visit: Yes ED Registration Date: 05/13/17 Care time: The patient presented to the Emergency Department on the above date and was hospitalized for further evaluation of their emergent condition. - New Patient This patient is new to me today: Yes Date on this admission: 05/13/17 - Critical Care Critical Care patient: No
[2017-05-13] MEDS ORDERED: ACETAMINOPHEN 325 MG TABLET (FP) PO PRN (17:52)
[2017-05-13] MEDS ORDERED: PNEUMOC 13-VAL CONJ-DIP CRM/PF 0.5 ML DISP.SYRIN IM ONE (18:30)
[2017-05-13] MEDS: FERROUS SO4 325 MG TABLET (FP) PO SCH (18:30)
[2017-05-13] MEDS: SODIUM CHLORIDE 1,000 ML IV SCH (19:56)
[2017-05-13] MEDS: levETIRAcetam 500 MG TABLET (FP) PO SCH (21:18)
[2017-05-13] MEDS: PATIENT OWN MEDICATION PO SCH (21:18)
[2017-05-13] MEDS: INSULIN (NOVOLOG) ASPART 100 UNITS/ML 10ML VIAL SQ SCH (21:46)
[2017-05-13] MEDS ORDERED: CAPECITABINE 500 MG TABLET PO SCH ×2 (22:00)
[2017-05-14 06:26] LABS: BASO % 0.3 % (0-2.0); EOS % 0.4 % (0-4.5); HEMATOCRIT 26.9 % (32.4-45.2); HEMOGLOBIN 8.7 GM/dL (10.7-15.3); LYMPH % 9.4 % (8-40); MCHC 32.3 g/dl (32.0-36.0); MEAN CELL VOLUME 77.4 fl (80-96); MEAN PLT VOLUME 10.1 fl (7.5-11.1); MONO % 10.1 % (3.8-10.2); NEUT % 79.8 % (42.8-82.8); PLATELET COUNT 110 K/MM3 (134-434); RBC 3.48 M/mm3 (3.60-5.2); WHITE BLOOD COUNT 8.6 K/mm3 (4.0-10.0)
[2017-05-14] MEDS: INSULIN DETEMIR 100 UNITS/ML MDV SQ SCH ×2 (06:37→16:33)
[2017-05-14] MEDS: INSULIN (NOVOLOG) ASPART 100 UNITS/ML 10ML VIAL SQ SCH ×4 (06:37→21:34)
[2017-05-14] MEDS ORDERED: INSULIN (NOVOLOG) ASPART 100 UNITS/ML 10ML VIAL ONE ×4 (06:39→21:30)
[2017-05-14 06:47] LABS: ADD RBC MORPHOLOGY YES
[2017-05-14 06:54] LABS: ALBUMIN 1.9 g/dl (3.4-5.0); ANION GAP 8 (8-16); BLOOD UREA NITROGEN 14 mg/dL (7-18); CALCIUM 7.4 mg/dL (8.5-10.1); CHLORIDE 105 mmol/L (98-107); CO2 27 mmol/L (21-32); GLUCOSE,RANDOM 236 mg/dL (74-106); MAGNESIUM 1.8 mg/dL (1.8-2.4); PHOSPHOROUS 2.2 mg/dL (2.5-4.9); SGOT/AST 24 U/L (15-37); SGPT/ALT 21 U/L (12-78); SODIUM 140 mmol/L (136-145)
[2017-05-14 06:55] LABS: ALK PHOS 135 U/L (45-117); BILIRUBIN,TOTAL 0.7 mg/dL (0.2-1.0); TOT PROT 5.1 g/dl (6.4-8.2)
[2017-05-14 06:57] LABS: POTASSIUM 2.9 mmol/L (3.5-5.1)
[2017-05-14] MEDS ORDERED: POTASSIUM CHLORIDE TABS 20 MEQ TABLET.ER (FP) PO ONE ×3 (07:30→11:30)
[2017-05-14] MEDS: FERROUS SO4 325 MG TABLET (FP) PO SCH ×2 (08:39→16:34)
[2017-05-14] MEDS: SODIUM CHLORIDE 1,000 ML IV SCH (08:50)
[2017-05-14] MEDS ORDERED: PIPERACILLIN/TAZOB 4.5 GM/100 ML PREMIX BAG IVPB SCH (09:00)
--- NOTE | 2017-05-14 09:01 | PN ---
Progress Note, Physician - Current Medication List Current Medications: Active Medications Acetaminophen (Tylenol -) 650 mg PO Q4H PRN PRN Reason: FEVER OR PAIN Last Admin: 05/14/17 01:07 Dose: 650 mg Capecitabine (Xeloda -) 1,000 mg PO BID [facility] Last Admin: 05/13/17 21:18 Dose: 1,000 mg Ferrous Sulfate (Feosol -) 325 mg PO BID@0800,1730 [facility] Last Admin: 05/14/17 08:39 Dose: 325 mg Hydrochlorothiazide (Hctz -) 25 mg PO DAILY [facility] Sodium Chloride (Normal Saline -) 1,000 mls @ 75 mls/hr IV ASDIR [facility] Last Admin: 05/14/17 08:50 Dose: 75 mls/hr Insulin Aspart (Novolog Vial) 0 units SQ ACHS [facility] PRN Reason: Protocol Last Admin: 05/14/17 06:37 Dose: 4 units Insulin Detemir (Levemir Vial) 45 units SQ BID@0700,1630 [facility] Last Admin: 05/14/17 06:37 Dose: 45 units Levetiracetam (Keppra -) 500 mg PO BID [facility] Last Admin: 05/13/17 21:18 Dose: 500 mg Losartan Potassium (Cozaar -) 100 mg PO DAILY [facility] Patient Own Lapatinib250mg Tablet Tykerb 1,250 each PO DAILY [facility] Piperacillin/Tazobactam/Dextrose (Zosyn 4.5gm Ivpb (Premix)) 4.5 gm IVPB Q6H- IV [facility] Stop: 05/15/17 08:59 - Objective Vital Signs: Vital Signs Temperature 98.9 F 05/14/17 06:00 Pulse Rate 82 05/14/17 06:00 Respiratory Rate 20 05/14/17 06:00 Blood Pressure 115/64 05/14/17 06:00 O2 Sat by Pulse Oximetry (%) 98 05/13/17 21:00 Constitutional: Yes: Well Nourished, No Distress, Calm Eyes: Yes: WNL, Conjunctiva Clear, EOM Intact HENT: Yes: Atraumatic Neck: Yes: WNL, Supple, Trachea Midline Cardiovascular: Yes: WNL, Regular Rate and Rhythm Respiratory: Yes: WNL, Regular, CTA Bilaterally Gastrointestinal: Yes: WNL, Normal Bowel Sounds, Soft ...Rectal Exam: Yes: Deferred Labs: CBC, BMP 05/14/17 05:55 05/14/17 05:55 INR, PTT INR 1.27 (0.82-1.09) H 05/13/17 10:39 Problem List - Problems (1) Sepsis Code(s): A41.9 - SEPSIS, UNSPECIFIED ORGANISM (2) Anemia Code(s): D64.9 - ANEMIA, UNSPECIFIED Qualifiers: Anemia type: unspecified type Qualified Code(s): D64.9 - Anemia, unspecified (3) Breast CA Code(s): C50.919 - MALIGNANT NEOPLASM OF UNSP SITE OF UNSPECIFIED FEMALE BREAST Qualifiers: Breast location: overlapping sites of breast Laterality: right (4) Cerebral edema Code(s): G93.6 - CEREBRAL EDEMA (5) UTI (urinary tract infection) Code(s): N39.0 - URINARY TRACT INFECTION, SITE NOT SPECIFIED Assessment/Plan Assessment: 56 year old female with breast and metastatic brain ca, HTN, DM II admitted with increased lethargy and weakness found to have UTI Plan: 1. Sepsis d/t UTI - patient is growing gram negative bacilli with hx of breast cancer immune supression will start zosyn d/c ceftriaxone until cleared by ID - Urine cx pending - S/p @2L NS in ED - Continue ns 83cc/hr - Follow blood cx - ID evaluation 2. Breast/brain CA - Pharmacy does not carry xeloda,tykrb pt will need to bring own - Keppra BID - Heme/oncology consulted 3. HTN - Continue Losartan/HCTZ 4. DM II - Levemir 45units BID - ISS, BGM ACHS 5. SALLY - Due to sepsis - Fluids as above 6. Hyponatremia - Corrected 136 7. Thrombocytopenia - Possibly due to infection vs ca 8. DVT ppx - SCDs b/l
[2017-05-14] MEDS ORDERED: PIPERACILLIN/TAZOB 4.5 GM 4.5 GM in DEXTROSE 5%-WATER - 100 ML IVPB SCH (10:00)
[2017-05-14] MEDS ORDERED: PATIENT'S OWN MEDICATION (NON-FORMULARY) (Losartan/Hydrochlorothiazide [Losartan-Hctz 100- PO SCH (10:00)
[2017-05-14] MEDS ORDERED: PT OWN MED DRAWER 7, Y5N ONE ×4 (11:00→20:04)
[2017-05-14] MEDS: LOSARTAN POTASSIUM 50 MG TABLET (FP) PO SCH (11:02)
[2017-05-14] MEDS: HYDROCHLOROTHIAZIDE 25 MG TABLET (FP) PO SCH (11:02)
[2017-05-14] MEDS: PATIENT OWN MEDICATION PO SCH ×2 (11:03→21:34)
[2017-05-14] MEDS: levETIRAcetam 500 MG TABLET (FP) PO SCH ×2 (11:03→21:34)
[2017-05-14 11:04] LABS: ACANTHOCYTES 1+; ANISOCYTOSIS 0; MACROCYTOSIS 0; TARGET CELLS 1+
[2017-05-14] MEDS: LAPATINIB 250 MG PO SCH (11:04)
--- NOTE | 2017-05-14 12:32 | CON.ID ---
Consult Reason for Consultation:: Fever/Generalized weakness - History of Present Illness History of Present Illness: This is a 56 y.o. female with PMH of IDDM, Breast CA on po chemotherapy and Brain tumor on steroids presenting with c/o severe generalized weakness, unable to get up from bed yesterday morning (normally ambulates with walker or cane due to gait abnormality). Pt denied any prior fever, chills, shortness of breath , cough, chest pain, dysuria/hematuria, abd pain/n/v/d, new focal weakness, rash. In the ER she was noted to have leukocytosis and has been having persistent fevers. 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) Cardio/Vascular: Yes: HTN Heme/Onc: Yes: Other (Breast CA) Endocrine: Yes: Diabetes Mellitus - Past Surgical History Past Surgical History: Yes: Breast Biopsy, - Alcohol/Substance Use Hx Alcohol Use: No History of Substance Use: reports: None - Smoking History Smoking history: Never smoked Have you smoked in the past 12 months: No Aproximately how many cigarettes per day: 0 - Social History Usual Living Arrangement: With Spouse ADL: Support Services 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 History of Recent Travel: No Home Medications - Allergies Allergies/Adverse Reactions: Allergies Allergy/AdvReac Type Severity Reaction Status Date / Time oxycodone HCl [From Percocet] Allergy Verified 05/13/17 10:26 - Home Medications Home Medications: Ambulatory Orders Losartan/Hydrochlorothiazide [Losartan-Hctz 100-25 mg Tab] 1 each PO DAILY 03/13 Acetaminophen [Tylenol .Regular Strength -] 650 mg PO Q6H #30 tablet 03/22/16 Ferrous Sulfate 325 mg PO BID 03/22/16 Omeprazole 20 mg PO DAILY 03/22/16 Capecitabine 1,000 mg PO BID 12/16/16 Dexamethasone [Decadron -] 4 mg PO TID 12/16/16 Lapatinib Ditosylate [Tykerb] 1,250 mg PO DAILY 12/16/16 Capecitabine [Xeloda -] 1,000 mg PO BID tablet 12/25/16 Dexamethasone [Decadron -] 4 mg PO Q6H #120 tablet 12/25/16 Insulin (Levemir) [Levemir Vial] 45 units SQ BID@0700,1630 ml 12/25/16 Levetiracetam [Keppra -] 500 mg PO BID tablet 12/25/16 Potassium Chloride [K-Dur -] 20 meq PO DAILY #30 tablet.er 12/25/16 Dexamethasone [Decadron -] 4 mg PO QID #28 tablet 04/15/17 Family Disease History - Family Disease History Family Disease History: Other: Grandparent (asthma), Father ( of unknown cause), Mother (htn), Brother (3B healthy and living), Sister (4S healthy and living) Review of Systems - Review of Systems Constitutional: reports: Weakness Eyes: reports: No Symptoms HENT: reports: No Symptoms Neck: reports: No Symptoms Cardiovascular: reports: No Symptoms Respiratory: reports: No Symptoms Gastrointestinal: reports: No Symptoms Genitourinary: reports: No Symptoms Breasts: reports: No Symptoms Reported Musculoskeletal: reports: No Symptoms Integumentary: reports: No Symptoms Neurological: reports: Unsteady Gait Endocrine: reports: No Symptoms Hematology/Lymphatic: reports: No Symptoms Psychiatric: reports: No Symptoms Physical Exam Vital Signs: Vital Signs Temperature 100.9 F H 05/14/17 09:21 Pulse Rate 94 H 05/14/17 09:21 Respiratory Rate 20 05/14/17 09:21 Blood Pressure 120/66 05/14/17 09:21 O2 Sat by Pulse Oximetry (%) 97 05/14/17 09:00 Constitutional: Yes: No Distress, Other (generally weak) HENT: Yes: Atraumatic Neck: Yes: Supple Cardiovascular: Yes: Tachycardia Respiratory: Yes: CTA Bilaterally Gastrointestinal: Yes: Normal Bowel Sounds, Soft Renal/: Yes: WNL Musculoskeletal: Yes: WNL Extremities: Yes: WNL Integumentary: Yes: WNL Neurological: Yes: Alert Psychiatric: Yes: Alert Labs: CBC, BMP 05/14/17 05:55 05/14/17 10:47 Microbiology 05/13/17 10:56 Blood - Peripheral Venous Blood Culture - Preliminary Lactose Fermenting Neg Bacilli 05/13/17 10:56 Blood - Peripheral Venous Blood Culture - Preliminary Pending Organism 05/13/17 11:07 Nasopharyngeal Swab Influenza Types A,B Antigen (ALTON) - Final 05/13/17 11:07 Nasopharyngeal Swab - Final Urine cultures pending Abnormal Lab Results 05/13/17 05/13/17 05/13/17 10:39 10:39 10:39 RBC Hgb Hct MCV MCH RDW Plt Count PT with INR 14.40 H INR 1.27 H POC VBG pO2 25.7 L Mixed VBG HCO3 25.2 H Potassium Random Glucose Lactic Acid 3.6 H* Calcium Phosphorus Alkaline Phosphatase Total Protein Albumin Urine Protein Urine Glucose (UA) Urine Blood Ur Leukocyte Esterase 05/13/17 05/13/17 05/14/17 10:56 17:00 05:55 RBC 3.48 L Hgb 8.7 L Hct 26.9 L MCV 77.4 L MCH 25.0 L RDW 21.0 H Plt Count 110 L PT with INR INR POC VBG pO2 Mixed VBG HCO3 Potassium Random Glucose 479 H* D Lactic Acid Calcium Phosphorus Alkaline Phosphatase Total Protein Albumin Urine Protein 2+ H Urine Glucose (UA) 2+ H Urine Blood 3+ H Ur Leukocyte Esterase 1+ H 05/14/17 05/14/17 05:55 10:47 RBC Hgb Hct MCV MCH RDW Plt Count PT with INR INR POC VBG pO2 Mixed VBG HCO3 Potassium 2.9 L* D 2.9 L* Random Glucose 236 H D Lactic Acid Calcium 7.4 L Phosphorus 2.2 L D Alkaline Phosphatase 135 H D Total Protein 5.1 L Albumin 1.9 L Urine Protein Urine Glucose (UA) Urine Blood Ur Leukocyte Esterase Imaging - Results Chest X-ray: Report Reviewed Problem List - Problems (1) Bacteremia Code(s): R78.81 - BACTEREMIA (2) Fever Code(s): R50.9 - FEVER, UNSPECIFIED (3) Generalized weakness Code(s): R53.1 - WEAKNESS (4) Sepsis Code(s): A41.9 - SEPSIS, UNSPECIFIED ORGANISM (5) Breast CA Code(s): C50.919 - MALIGNANT NEOPLASM OF UNSP SITE OF UNSPECIFIED FEMALE BREAST Qualifiers: Breast location: overlapping sites of breast Laterality: right (6) Diabetes Code(s): E11.9 - TYPE 2 DIABETES MELLITUS WITHOUT COMPLICATIONS Qualifiers: Diabetes mellitus type: type 2 Diabetes mellitus complication status: without complication (7) UTI (urinary tract infection) Code(s): N39.0 - URINARY TRACT INFECTION, SITE NOT SPECIFIED Assessment/Plan 56 y.o. female with history of Brain tumor s/p RT, Breast CA, IDDM admitted for generalized weakness Gram negative Bacteremia Sepsis UTI Fever Leukocytosis - improved Elevated lactic Acid - now normal - started IV Zosyn empirically - f/u Blood and urine cultures - monitor temperature trend, vitals closely will f/u
--- NOTE | 2017-05-14 13:31 | CONSULT ---
Consult Consult Specialty:: Oncology Referred by:: Medicine Reason for Consultation:: Patient presented with profound weakness, discovered to have gm negative bacteremia, now improved on Abics. Consulted regarding history of breast Ca. - History of Present Illness History of Present Illness: History of invasive breast cancer diagnosed in 2013. ER-, IA-, Her-2 positive, initially treated with chemotherapy and herceptin. In 2014, developed ENERGY DIRECTOR mets treated with stereotactic radiosurgery. Followed by Dr. Kiser. Currently on Xeloda and lapatinib. As per patient, has no active disease - believes she is in remission. Noted that in November 2016 she was found to have vasogenic edema on brain MRI - was unclear whether attributable to recurrent disease versus post-radiation changes at that time. 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 RT) Cardio/Vascular: Yes: HTN Heme/Onc: Yes: Cancer Endocrine: Yes: Diabetes Mellitus - Past Surgical History Past Surgical History: Yes: Breast Biopsy, - Alcohol/Substance Use Hx Alcohol Use: No History of Substance Use: reports: None - Smoking History Smoking history: Never smoked Have you smoked in the past 12 months: No Aproximately how many cigarettes per day: 0 - Social History Usual Living Arrangement: With Spouse ADL: Support Services 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 History of Recent Travel: No Home Medications - Allergies Allergies/Adverse Reactions: Allergies Allergy/AdvReac Type Severity Reaction Status Date / Time oxycodone HCl [From Percocet] Allergy Verified 05/13/17 10:26 - Home Medications Home Medications: Ambulatory Orders Losartan/Hydrochlorothiazide [Losartan-Hctz 100-25 mg Tab] 1 each PO DAILY 03/13 Acetaminophen [Tylenol .Regular Strength -] 650 mg PO Q6H #30 tablet 03/22/16 Ferrous Sulfate 325 mg PO BID 03/22/16 Omeprazole 20 mg PO DAILY 03/22/16 Capecitabine 1,000 mg PO BID 12/16/16 Dexamethasone [Decadron -] 4 mg PO TID 12/16/16 Lapatinib Ditosylate [Tykerb] 1,250 mg PO DAILY 12/16/16 Capecitabine [Xeloda -] 1,000 mg PO BID tablet 12/25/16 Dexamethasone [Decadron -] 4 mg PO Q6H #120 tablet 12/25/16 Insulin (Levemir) [Levemir Vial] 45 units SQ BID@0700,1630 ml 12/25/16 Levetiracetam [Keppra -] 500 mg PO BID tablet 12/25/16 Potassium Chloride [K-Dur -] 20 meq PO DAILY #30 tablet.er 12/25/16 Dexamethasone [Decadron -] 4 mg PO QID #28 tablet 04/15/17 Family Disease History - Family Disease History Family Disease History: Other: Grandparent (asthma), Father ( of unknown cause), Mother (htn), Brother (3B healthy and living), Sister (4S healthy and living) Review of Systems - Review of Systems Constitutional: reports: Lethargy, Loss of Appetite, Other (Now resolved) Cardiovascular: denies: Chest Pain Respiratory: denies: Cough, SOB Gastrointestinal: denies: Abdominal Pain, Diarrhea, Vomiting Neurological: denies: Change in Speech, Confusion Physical Exam Vital Signs: Vital Signs Temperature 100.9 F H 05/14/17 09:21 Pulse Rate 94 H 05/14/17 09:21 Respiratory Rate 20 05/14/17 09:21 Blood Pressure 120/66 05/14/17 09:21 O2 Sat by Pulse Oximetry (%) 97 05/14/17 09:00 Constitutional: Yes: Well Nourished HENT: Yes: Other (Cushingoid) Neck: Yes: Supple Cardiovascular: Yes: Regular Rate and Rhythm, S1, S2 Respiratory: Yes: CTA Bilaterally. No: Rales, Rhonchi Gastrointestinal: Yes: Normal Bowel Sounds. No: Hepatomegaly, Splenomegaly Musculoskeletal: Yes: WNL Edema: No Neurological: Yes: Alert, Oriented ...Motor Strength: WNL Labs: CBC, BMP 05/14/17 05:55 05/14/17 10:47 Assessment/Plan Metastatic breast ca, (ER/IA -, [id number] +) - currently on Xeloda/Tykerb Known brain metastases, and active disease chest wall. Reviewed most recent note Dr Kiser (04/27/17) - his impression was that disease was progressing - was planning on changing regimen. Currently with gm negative bacteremia (?UTI) - improving with empiric broad- spectrum Abics. (Was not neutropenic) Careful observation. Low threshold for brain imaging if any new neurological findings, in light of known brain metastases. Would also restart empiric steroids, if any suspicion of acute neurological findings. Follow up with Dr Kiser following discharge.
[2017-05-14] MEDS: PIPERACILLIN/TAZOB 4.5 GM 4.5 GM in DEXTROSE 5%-WATER - 100 ML IVPB SCH ×3 (15:00→20:06)
--- NOTE | 2017-05-14 17:09 | EKG ---
Test Reason : Blood Pressure : / mmHG Vent. Rate : 108 BPM Atrial Rate : 108 BPM P-R Int : 148 ms QRS Dur : 078 ms QT Int : 336 ms P-R-T Axes : 048 040 043 degrees QTc Int : 450 ms SINUS TACHYCARDIA WITH FUSION COMPLEXES POSSIBLE LEFT ATRIAL ENLARGEMENT BORDERLINE ECG WHEN COMPARED WITH ECG OF 22-MAR-2016 12:37, FUSION COMPLEXES ARE NOW PRESENT VENT. RATE HAS INCREASED BY 43 BPM T WAVE AMPLITUDE HAS INCREASED IN ANTERIOR LEADS Confirmed by JAME STEVENS MD ([id number]) on 05/14/2017 5:08:45 PM Referred By: Confirmed By:JAME STEVENS MD
[2017-05-14] MEDS ORDERED: ACETAMINOPHEN 1000 MG/100 ML VIAL (NON FORMULARY) IVPB ONE (19:30)
--- NOTE | 2017-05-14 19:35 | HOSP ---
Subjective - Review of Symptoms Subjective: Saw pt. at bedside for back pain states starting at her cervical spine and radiating all the way down.States no urinary/bowel incontinance. No loss of sensation or muscle strength. Physical: VS: Vital Signs Period Temp Pulse Resp BP Sys/Agarwal Pulse Ox Last 24 Hr 98.9 F-102.3 F 82-103 18-20 106-130/57-66 97-98 GEN: NAD, Resting in bed, AA0X3 CARD: RRR S1, S2 RESP: CTAB ABD: BSx4, NTD to palpation EXT; MS+5/5, Sensation intact bilateral UE/LE, No localized area of tenderness on spine A/P.) Back Pain - DDx: Mets VS. Musculoskelatal pain - Pt. States she has recent MRI/ of back- Records, if not recent may need repeat - No neuro defecit - IV tylenol and will observe Physical Examination Vital Signs: Vital Signs Temperature 99 F 05/14/17 15:34 Pulse Rate 101 H 05/14/17 15:34 Respiratory Rate 20 05/14/17 15:34 Blood Pressure 106/57 05/14/17 15:34 O2 Sat by Pulse Oximetry (%) 97 05/14/17 09:00 Labs: CBC, BMP 05/14/17 05:55 05/14/17 10:47
[2017-05-15] MEDS: SODIUM CHLORIDE 1,000 ML IV SCH ×2 (00:31→15:01)
[2017-05-15] MEDS: PIPERACILLIN/TAZOB 4.5 GM 4.5 GM in DEXTROSE 5%-WATER - 100 ML IVPB SCH ×4 (02:09→21:08)
[2017-05-15] MEDS: INSULIN DETEMIR 100 UNITS/ML MDV SQ SCH ×2 (06:36→16:49)
[2017-05-15] MEDS: INSULIN (NOVOLOG) ASPART 100 UNITS/ML 10ML VIAL SQ SCH ×4 (06:36→21:14)
[2017-05-15] MEDS: FERROUS SO4 325 MG TABLET (FP) PO SCH ×2 (08:31→16:51)
[2017-05-15 09:25] LABS: POTASSIUM 2.8 mmol/L (3.5-5.1)
[2017-05-15] MEDS ORDERED: PT OWN MED DRAWER 7, Y5N ONE (09:54)
[2017-05-15] MEDS: LOSARTAN POTASSIUM 50 MG TABLET (FP) PO SCH (09:59)
[2017-05-15] MEDS: HYDROCHLOROTHIAZIDE 25 MG TABLET (FP) PO SCH (09:59)
[2017-05-15] MEDS: levETIRAcetam 500 MG TABLET (FP) PO SCH ×2 (09:59→21:08)
[2017-05-15] MEDS: LAPATINIB 250 MG PO SCH (10:00)
[2017-05-15] MEDS: PATIENT OWN MEDICATION PO SCH ×2 (10:01→21:09)
--- NOTE | 2017-05-15 10:54 | PN ---
Progress Note, Physician History of Present Illness: patient starting to feel better back pain better - Current Medication List Current Medications: Active Medications Capecitabine (Xeloda -) 1,000 mg PO BID [facility] Last Admin: 05/15/17 10:01 Dose: 1,000 mg Ferrous Sulfate (Feosol -) 325 mg PO BID@0800,1730 [facility] Last Admin: 05/15/17 08:31 Dose: Not Given Hydrochlorothiazide (Hctz -) 25 mg PO DAILY [facility] Last Admin: 05/15/17 09:59 Dose: 25 mg Sodium Chloride (Normal Saline -) 1,000 mls @ 75 mls/hr IV ASDIR [facility] Last Admin: 05/15/17 00:31 Dose: 75 mls/hr Piperacillin Sod/Tazobactam (Sod 4.5 gm/ Dextrose) 100 mls @ 200 mls/hr IVPB Q6H-IV [facility] PRN Reason: Protocol Last Admin: 05/15/17 09:59 Dose: 200 mls/hr Insulin Aspart (Novolog Vial) 0 units SQ ACHS [facility] PRN Reason: Protocol Last Admin: 05/15/17 06:36 Dose: Not Given Insulin Detemir (Levemir Vial) 45 units SQ BID@0700,1630 [facility] Last Admin: 05/15/17 06:36 Dose: Not Given Levetiracetam (Keppra -) 500 mg PO BID [facility] Last Admin: 05/15/17 09:59 Dose: 500 mg Losartan Potassium (Cozaar -) 100 mg PO DAILY [facility] Last Admin: 05/15/17 09:59 Dose: 100 mg Patient Own Lapatinib250mg Tablet Tykerb 1,250 each PO DAILY [facility] Last Admin: 05/15/17 10:00 Dose: 1,250 each - Objective Vital Signs: Vital Signs Temperature 98.7 F 05/15/17 05:44 Pulse Rate 86 05/15/17 05:44 Respiratory Rate 20 05/15/17 05:44 Blood Pressure 118/73 05/15/17 05:44 O2 Sat by Pulse Oximetry (%) 97 05/14/17 21:00 Constitutional: Yes: No Distress, Calm Cardiovascular: Yes: Regular Rate and Rhythm Respiratory: Yes: Regular, CTA Bilaterally Gastrointestinal: Yes: Normal Bowel Sounds, Soft Musculoskeletal: Yes: WNL Extremities: Yes: WNL Neurological: Yes: Alert, Oriented Psychiatric: Yes: Alert, Oriented Labs: CBC, BMP 05/14/17 05:55 05/15/17 06:30 INR, PTT INR 1.27 (0.82-1.09) H 05/13/17 10:39 Assessment/Plan Problem List - Problems (1) Bacteremia Code(s): R78.81 - BACTEREMIA (2) Fever Code(s): R50.9 - FEVER, UNSPECIFIED (3) Generalized weakness Code(s): R53.1 - WEAKNESS (4) Sepsis Code(s): A41.9 - SEPSIS, UNSPECIFIED ORGANISM (5) Breast CA Code(s): C50.919 - MALIGNANT NEOPLASM OF UNSP SITE OF UNSPECIFIED FEMALE BREAST Qualifiers: Breast location: overlapping sites of breast Laterality: right (6) Diabetes Code(s): E11.9 - TYPE 2 DIABETES MELLITUS WITHOUT COMPLICATIONS Qualifiers: Diabetes mellitus type: type 2 Diabetes mellitus complication status: without complication (7) UTI (urinary tract infection) Code(s): N39.0 - URINARY TRACT INFECTION, SITE NOT SPECIFIED plan conitnue current abx repeat blood cx await for final org of the bacteria rest as per primary team
[2017-05-15] MEDS ORDERED: POTASSIUM CHLORIDE TABS 20 MEQ TABLET.ER (FP) PO ONE (12:30)
[2017-05-15] MEDS ORDERED: INSULIN (NOVOLOG) ASPART 100 UNITS/ML 10ML VIAL ONE ×2 (16:48→21:13)
--- NOTE | 2017-05-15 23:58 | PN ---
Progress Note, Physician History of Present Illness: No new complaints - Current Medication List Current Medications: Active Medications Capecitabine (Xeloda -) 1,000 mg PO BID [facility] Last Admin: 05/15/17 21:09 Dose: 1,000 mg Ferrous Sulfate (Feosol -) 325 mg PO BID@0800,1730 [facility] Last Admin: 05/15/17 16:51 Dose: 325 mg Hydrochlorothiazide (Hctz -) 25 mg PO DAILY [facility] Last Admin: 05/15/17 09:59 Dose: 25 mg Sodium Chloride (Normal Saline -) 1,000 mls @ 75 mls/hr IV ASDIR [facility] Last Admin: 05/15/17 15:01 Dose: 75 mls/hr Piperacillin Sod/Tazobactam (Sod 4.5 gm/ Dextrose) 100 mls @ 200 mls/hr IVPB Q6H-IV [facility] PRN Reason: Protocol Last Admin: 05/15/17 21:08 Dose: 200 mls/hr Insulin Aspart (Novolog Vial) 0 units SQ ACHS [facility] PRN Reason: Protocol Last Admin: 05/15/17 21:14 Dose: 8 units Insulin Detemir (Levemir Vial) 45 units SQ BID@0700,1630 [facility] Last Admin: 05/15/17 16:49 Dose: 45 units Levetiracetam (Keppra -) 500 mg PO BID [facility] Last Admin: 05/15/17 21:08 Dose: 500 mg Losartan Potassium (Cozaar -) 100 mg PO DAILY [facility] Last Admin: 05/15/17 09:59 Dose: 100 mg Patient Own Lapatinib250mg Tablet Tykerb 1,250 each PO DAILY [facility] Last Admin: 05/15/17 10:00 Dose: 1,250 each - Objective Vital Signs: Vital Signs Temperature 99 F 05/15/17 22:08 Pulse Rate 88 05/15/17 22:08 Respiratory Rate 20 05/15/17 22:08 Blood Pressure 116/62 05/15/17 22:08 O2 Sat by Pulse Oximetry (%) 94 L 05/15/17 20:47 Constitutional: Yes: Well Nourished Neck: Yes: WNL, Supple Cardiovascular: Yes: WNL, Regular Rate and Rhythm Respiratory: Yes: WNL, Regular, CTA Bilaterally Gastrointestinal: Yes: WNL, Normal Bowel Sounds, Soft, Abdomen, Obese Edema: No Labs: CBC, BMP 05/14/17 05:55 05/15/17 06:30 INR, PTT INR 1.27 (0.82-1.09) H 05/13/17 10:39 Problem List - Problems (1) UTI (urinary tract infection) Assessment/Plan: Repeat BC remain negative Cont IV zosyn Cont IV fluid Code(s): N39.0 - URINARY TRACT INFECTION, SITE NOT SPECIFIED (2) Anemia Assessment/Plan: Multifactorial Due to chronic dz/cancer Code(s): D64.9 - ANEMIA, UNSPECIFIED Qualifiers: Anemia type: unspecified type Qualified Code(s): D64.9 - Anemia, unspecified (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
[2017-05-16] MEDS ORDERED: traMADol HCL 50 MG TABLET PO ONE (02:15)
[2017-05-16] MEDS: PIPERACILLIN/TAZOB 4.5 GM 4.5 GM in DEXTROSE 5%-WATER - 100 ML IVPB SCH ×4 (02:38→21:33)
[2017-05-16] MEDS: SODIUM CHLORIDE 1,000 ML IV SCH ×4 (06:55→21:33)
[2017-05-16] MEDS: INSULIN DETEMIR 100 UNITS/ML MDV SQ SCH ×3 (06:56→17:11)
[2017-05-16] MEDS: INSULIN (NOVOLOG) ASPART 100 UNITS/ML 10ML VIAL SQ SCH ×4 (06:56→21:36)
[2017-05-16] MEDS: FERROUS SO4 325 MG TABLET (FP) PO SCH ×2 (08:20→17:43)
[2017-05-16] MEDS ORDERED: PT OWN MED DRAWER 7, Y5N ONE (09:35)
[2017-05-16] MEDS: levETIRAcetam 500 MG TABLET (FP) PO SCH ×2 (09:47→21:36)
[2017-05-16] MEDS: HYDROCHLOROTHIAZIDE 25 MG TABLET (FP) PO SCH (09:47)
[2017-05-16] MEDS: LOSARTAN POTASSIUM 50 MG TABLET (FP) PO SCH (09:47)
[2017-05-16] MEDS: PATIENT OWN MEDICATION PO SCH ×2 (09:48→21:37)
[2017-05-16] MEDS: LAPATINIB 250 MG PO SCH (09:48)
--- NOTE | 2017-05-16 14:32 | PN ---
Progress Note, Physician History of Present Illness: patient starting to feel better no complaints - Current Medication List Current Medications: Active Medications Capecitabine (Xeloda -) 1,000 mg PO BID [facility] Last Admin: 05/16/17 09:48 Dose: 1,000 mg Ferrous Sulfate (Feosol -) 325 mg PO BID@0800,1730 [facility] Last Admin: 05/16/17 08:20 Dose: 325 mg Hydrochlorothiazide (Hctz -) 25 mg PO DAILY [facility] Last Admin: 05/16/17 09:47 Dose: 25 mg Sodium Chloride (Normal Saline -) 1,000 mls @ 75 mls/hr IV ASDIR [facility] Last Admin: 05/16/17 09:53 Dose: 75 mls/hr Piperacillin Sod/Tazobactam (Sod 4.5 gm/ Dextrose) 100 mls @ 200 mls/hr IVPB Q6H-IV [facility] PRN Reason: Protocol Last Admin: 05/16/17 09:47 Dose: 200 mls/hr Insulin Aspart (Novolog Vial) 0 units SQ ACHS [facility] PRN Reason: Protocol Last Admin: 05/16/17 11:58 Dose: 2 units Insulin Detemir (Levemir Vial) 45 units SQ BID@0700,1630 [facility] Last Admin: 05/16/17 08:20 Dose: 45 units Levetiracetam (Keppra -) 500 mg PO BID [facility] Last Admin: 05/16/17 09:47 Dose: 500 mg Losartan Potassium (Cozaar -) 100 mg PO DAILY [facility] Last Admin: 05/16/17 09:47 Dose: 100 mg Patient Own Lapatinib250mg Tablet Tykerb 1,250 each PO DAILY [facility] Last Admin: 05/16/17 09:48 Dose: 1,250 each - Objective Vital Signs: Vital Signs Temperature 99.4 F 05/16/17 09:00 Pulse Rate 92 H 05/16/17 09:00 Respiratory Rate 20 05/16/17 09:00 Blood Pressure 123/68 05/16/17 09:00 O2 Sat by Pulse Oximetry (%) 96 05/16/17 09:00 Constitutional: Yes: No Distress, Calm Neck: Yes: Supple Cardiovascular: Yes: Regular Rate and Rhythm Respiratory: Yes: Regular, CTA Bilaterally Gastrointestinal: Yes: Normal Bowel Sounds, Soft Musculoskeletal: Yes: WNL Extremities: Yes: WNL Neurological: Yes: Alert, Oriented Psychiatric: Yes: Alert, Oriented Labs: CBC, BMP 05/14/17 05:55 05/16/17 06:35 INR, PTT INR 1.27 (0.82-1.09) H 05/13/17 10:39 Assessment/Plan Problem List - Problems (1) Bacteremia Code(s): R78.81 - BACTEREMIA (2) Fever Code(s): R50.9 - FEVER, UNSPECIFIED (3) Generalized weakness Code(s): R53.1 - WEAKNESS (4) Sepsis Code(s): A41.9 - SEPSIS, UNSPECIFIED ORGANISM (5) Breast CA Code(s): C50.919 - MALIGNANT NEOPLASM OF UNSP SITE OF UNSPECIFIED FEMALE BREAST Qualifiers: Breast location: overlapping sites of breast Laterality: right (6) Diabetes Code(s): E11.9 - TYPE 2 DIABETES MELLITUS WITHOUT COMPLICATIONS Qualifiers: Diabetes mellitus type: type 2 Diabetes mellitus complication status: without complication (7) UTI (urinary tract infection) Code(s): N39.0 - URINARY TRACT INFECTION, SITE NOT SPECIFIED plan conitnue current abx await for repeat blood cx rest as per primary team
[2017-05-16 20:36] LABS: BASO % 0.2 % (0-2.0); EOS % 0.6 % (0-4.5); HEMATOCRIT 24.7 % (32.4-45.2); LYMPH % 11.2 % (8-40); MCH 24.7 pg (25.7-33.7); MCHC 32.2 g/dl (32.0-36.0); MEAN CELL VOLUME 76.8 fl (80-96); MONO % 5.2 % (3.8-10.2); NEUT % 82.8 % (42.8-82.8); PLATELET COUNT 203 K/MM3 (134-434); RBC 3.21 M/mm3 (3.60-5.2); RDW 21.6 % (11.6-15.6); WHITE BLOOD COUNT 9.5 K/mm3 (4.0-10.0)
[2017-05-16 21:25] LABS: ALBUMIN 1.7 g/dl (3.4-5.0); ANION GAP 10 (8-16); BILIRUBIN,TOTAL 0.4 mg/dL (0.2-1.0); BLOOD UREA NITROGEN 10 mg/dL (7-18); CALCIUM 7.1 mg/dL (8.5-10.1); CHLORIDE 102 mmol/L (98-107); CO2 25 mmol/L (21-32); GLUCOSE,RANDOM 237 mg/dL (74-106); POTASSIUM 3.4 mmol/L (3.5-5.1); SGOT/AST 27 U/L (15-37); SGPT/ALT 20 U/L (12-78); SODIUM 137 mmol/L (136-145); TOT PROT 5.3 g/dl (6.4-8.2)
[2017-05-16 21:26] LABS: ALK PHOS 136 U/L (45-117)
[2017-05-16] MEDS ORDERED: INSULIN (NOVOLOG) ASPART 100 UNITS/ML 10ML VIAL ONE (21:36)
--- NOTE | 2017-05-16 23:31 | PN ---
Progress Note, Physician History of Present Illness: No new complaints - Current Medication List Current Medications: Active Medications Capecitabine (Xeloda -) 1,000 mg PO BID [facility] Last Admin: 05/16/17 21:37 Dose: 1,000 mg Ferrous Sulfate (Feosol -) 325 mg PO BID@0800,1730 [facility] Last Admin: 05/16/17 17:43 Dose: 325 mg Hydrochlorothiazide (Hctz -) 25 mg PO DAILY [facility] Last Admin: 05/16/17 09:47 Dose: 25 mg Sodium Chloride (Normal Saline -) 1,000 mls @ 75 mls/hr IV ASDIR [facility] Last Admin: 05/16/17 21:33 Dose: 75 mls/hr Piperacillin Sod/Tazobactam (Sod 4.5 gm/ Dextrose) 100 mls @ 200 mls/hr IVPB Q6H-IV [facility] PRN Reason: Protocol Last Admin: 05/16/17 21:33 Dose: 200 mls/hr Insulin Aspart (Novolog Vial) 0 units SQ ACHS [facility] PRN Reason: Protocol Last Admin: 05/16/17 21:36 Dose: 6 units Insulin Detemir (Levemir Vial) 45 units SQ BID@0700,1630 [facility] Last Admin: 05/16/17 17:11 Dose: 45 units Levetiracetam (Keppra -) 500 mg PO BID [facility] Last Admin: 05/16/17 21:36 Dose: 500 mg Losartan Potassium (Cozaar -) 100 mg PO DAILY [facility] Last Admin: 05/16/17 09:47 Dose: 100 mg Patient Own Lapatinib250mg Tablet Tykerb 1,250 each PO DAILY [facility] Last Admin: 05/16/17 09:48 Dose: 1,250 each - Objective Vital Signs: Vital Signs Temperature 99.4 F 05/16/17 14:40 Pulse Rate 95 H 05/16/17 14:40 Respiratory Rate 20 05/16/17 14:40 Blood Pressure 94/68 05/16/17 14:40 O2 Sat by Pulse Oximetry (%) 95 05/16/17 22:32 Constitutional: Yes: Well Nourished Neck: Yes: WNL, Supple Cardiovascular: Yes: WNL, Regular Rate and Rhythm Respiratory: Yes: WNL, Regular, CTA Bilaterally Gastrointestinal: Yes: WNL, Normal Bowel Sounds, Soft Edema: No Labs: CBC, BMP 05/16/17 19:00 05/16/17 19:00 INR, PTT INR 1.27 (0.82-1.09) H 05/13/17 10:39 Problem List - Problems (1) UTI (urinary tract infection) Assessment/Plan: Repeat BC remain negative Cont IV zosyn Cont IV fluid Code(s): N39.0 - URINARY TRACT INFECTION, SITE NOT SPECIFIED (2) Anemia Assessment/Plan: Multifactorial Due to chronic dz/cancer Code(s): D64.9 - ANEMIA, UNSPECIFIED Qualifiers: Anemia type: unspecified type Qualified Code(s): D64.9 - Anemia, unspecified (3) 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
[2017-05-16] MEDS ORDERED: POTASSIUM CHLORIDE TABS 20 MEQ TABLET.ER (FP) PO ONE (23:51)
[2017-05-17] MEDS: PIPERACILLIN/TAZOB 4.5 GM 4.5 GM in DEXTROSE 5%-WATER - 100 ML IVPB SCH ×4 (02:48→21:21)
[2017-05-17] MEDS: INSULIN SLIDING SCALE (NOVOLOG) 1 VIAL SQ SCH ×4 (06:22→21:25)
[2017-05-17] MEDS: INSULIN DETEMIR 100 UNITS/ML MDV SQ SCH ×2 (06:59→16:39)
[2017-05-17] MEDS: FERROUS SO4 325 MG TABLET (FP) PO SCH ×2 (08:19→17:44)
[2017-05-17 08:51] LABS: BASO % 0.3 % (0-2.0); EOS % 0.4 % (0-4.5); HEMATOCRIT 24.4 % (32.4-45.2); HEMOGLOBIN 7.8 GM/dL (10.7-15.3); LYMPH % 10.5 % (8-40); MCH 24.3 pg (25.7-33.7); MCHC 31.9 g/dl (32.0-36.0); MEAN CELL VOLUME 76.1 fl (80-96); MEAN PLT VOLUME 8.9 fl (7.5-11.1); MONO % 4.9 % (3.8-10.2); NEUT % 83.9 % (42.8-82.8); PLATELET COUNT 213 K/MM3 (134-434); RDW 21.7 % (11.6-15.6); WHITE BLOOD COUNT 10.8 K/mm3 (4.0-10.0)
[2017-05-17 09:33] LABS: CHLORIDE 105 mmol/L (98-107); POTASSIUM 3.4 mmol/L (3.5-5.1); SODIUM 140 mmol/L (136-145)
[2017-05-17] MEDS: HYDROCHLOROTHIAZIDE 25 MG TABLET (FP) PO SCH (09:55)
[2017-05-17] MEDS: PATIENT OWN MEDICATION PO SCH ×2 (09:55→21:22)
[2017-05-17] MEDS: LAPATINIB 250 MG PO SCH (09:55)
[2017-05-17] MEDS: LOSARTAN POTASSIUM 50 MG TABLET (FP) PO SCH (09:55)
[2017-05-17] MEDS: levETIRAcetam 500 MG TABLET (FP) PO SCH ×2 (09:55→21:22)
[2017-05-17 10:02] LABS: ALBUMIN 1.7 g/dl (3.4-5.0); ALK PHOS 128 U/L (45-117); ANION GAP 10 (8-16); BILIRUBIN,TOTAL 0.7 mg/dL (0.2-1.0); BLOOD UREA NITROGEN 7 mg/dL (7-18); CALCIUM 7.7 mg/dL (8.5-10.1); CO2 25 mmol/L (21-32); CREATININE 0.9 mg/dL (0.55-1.02); GLUCOSE,RANDOM 160 mg/dL (74-106); SGOT/AST 26 U/L (15-37); SGPT/ALT 19 U/L (12-78); TOT PROT 5.6 g/dl (6.4-8.2)
[2017-05-17] MEDS ORDERED: PT OWN MED DRAWER 7, Y5N ONE (10:44)
[2017-05-17] MEDS ORDERED: INSULIN (NOVOLOG) ASPART 100 UNITS/ML 10ML VIAL ONE ×2 (11:21→21:23)
[2017-05-17] MEDS ORDERED: INSULIN DETEMIR 100 UNITS/ML MDV SQ ONE (11:22)
--- NOTE | 2017-05-17 16:29 | PN ---
Progress Note, Physician History of Present Illness: stable no complaints - Current Medication List Current Medications: Active Medications Capecitabine (Xeloda -) 1,000 mg PO BID [facility] Last Admin: 05/17/17 09:55 Dose: 1,000 mg Ferrous Sulfate (Feosol -) 325 mg PO BID@0800,1730 [facility] Last Admin: 05/17/17 08:19 Dose: 325 mg Hydrochlorothiazide (Hctz -) 25 mg PO DAILY [facility] Last Admin: 05/17/17 09:55 Dose: 25 mg Sodium Chloride (Normal Saline -) 1,000 mls @ 75 mls/hr IV ASDIR [facility] Last Admin: 05/16/17 21:33 Dose: 75 mls/hr Piperacillin Sod/Tazobactam (Sod 4.5 gm/ Dextrose) 100 mls @ 200 mls/hr IVPB Q6H-IV [facility] PRN Reason: Protocol Last Admin: 05/17/17 14:30 Dose: 200 mls/hr Insulin Aspart (Novolog Vial Sliding Scale -) 1 vial SQ ACHS [facility] PRN Reason: Protocol Last Admin: 05/17/17 11:38 Dose: 4 units Insulin Detemir (Levemir Vial) 45 units SQ BID@0700,1630 [facility] Last Admin: 05/17/17 06:59 Dose: 45 units Levetiracetam (Keppra -) 500 mg PO BID [facility] Last Admin: 05/17/17 09:55 Dose: 500 mg Losartan Potassium (Cozaar -) 100 mg PO DAILY [facility] Last Admin: 05/17/17 09:55 Dose: 100 mg Patient Own Lapatinib250mg Tablet Tykerb 1,250 each PO DAILY [facility] Last Admin: 05/17/17 09:55 Dose: 1,250 each - Objective Vital Signs: Vital Signs Temperature 98.6 F 05/17/17 14:04 Pulse Rate 97 H 05/17/17 14:04 Respiratory Rate 18 05/17/17 14:04 Blood Pressure 97/64 05/17/17 14:04 O2 Sat by Pulse Oximetry (%) 96 05/17/17 09:00 Constitutional: Yes: No Distress, Calm Cardiovascular: Yes: Regular Rate and Rhythm Respiratory: Yes: Regular, CTA Bilaterally Gastrointestinal: Yes: Normal Bowel Sounds, Soft Musculoskeletal: Yes: WNL Extremities: Yes: WNL Wound/Incision: Yes: Other (port site looks good) Neurological: Yes: Alert, Oriented Psychiatric: Yes: Alert, Oriented Labs: CBC, BMP 05/17/17 07:45 05/17/17 07:45 INR, PTT INR 1.27 (0.82-1.09) H 05/13/17 10:39 Assessment/Plan Problem List - Problems (1) Bacteremia Code(s): R78.81 - BACTEREMIA (2) Fever Code(s): R50.9 - FEVER, UNSPECIFIED (3) Generalized weakness Code(s): R53.1 - WEAKNESS (4) Sepsis Code(s): A41.9 - SEPSIS, UNSPECIFIED ORGANISM (5) Breast CA Code(s): C50.919 - MALIGNANT NEOPLASM OF UNSP SITE OF UNSPECIFIED FEMALE BREAST Qualifiers: Breast location: overlapping sites of breast Laterality: right (6) Diabetes Code(s): E11.9 - TYPE 2 DIABETES MELLITUS WITHOUT COMPLICATIONS Qualifiers: Diabetes mellitus type: type 2 Diabetes mellitus complication status: without complication (7) UTI (urinary tract infection) Code(s): N39.0 - URINARY TRACT INFECTION, SITE NOT SPECIFIED plan continue current abx repeat blood cx result noted continue monitoring rest as per primary team
[2017-05-17] MEDS: SODIUM CHLORIDE 1,000 ML IV SCH (20:57)
[2017-05-17] MEDS ORDERED: ONDANSETRON 4 MG/2 ML VIAL IVPUSH ONE (22:45)
--- NOTE | 2017-05-18 01:52 | PN ---
Progress Note, Physician History of Present Illness: No new complaints - Current Medication List Current Medications: Active Medications Capecitabine (Xeloda -) 1,000 mg PO BID [facility] Last Admin: 05/17/17 21:22 Dose: 1,000 mg Ferrous Sulfate (Feosol -) 325 mg PO BID@0800,1730 [facility] Last Admin: 05/17/17 17:44 Dose: 325 mg Hydrochlorothiazide (Hctz -) 25 mg PO DAILY [facility] Last Admin: 05/17/17 09:55 Dose: 25 mg Sodium Chloride (Normal Saline -) 1,000 mls @ 75 mls/hr IV ASDIR [facility] Last Admin: 05/17/17 20:57 Dose: 75 mls/hr Piperacillin Sod/Tazobactam (Sod 4.5 gm/ Dextrose) 100 mls @ 200 mls/hr IVPB Q6H-IV [facility] PRN Reason: Protocol Last Admin: 05/17/17 21:21 Dose: 200 mls/hr Insulin Aspart (Novolog Vial Sliding Scale -) 1 vial SQ ACHS [facility] PRN Reason: Protocol Last Admin: 05/17/17 21:25 Dose: 2 units Insulin Detemir (Levemir Vial) 45 units SQ BID@0700,1630 [facility] Last Admin: 05/17/17 16:39 Dose: 45 units Levetiracetam (Keppra -) 500 mg PO BID [facility] Last Admin: 05/17/17 21:22 Dose: 500 mg Losartan Potassium (Cozaar -) 100 mg PO DAILY [facility] Last Admin: 05/17/17 09:55 Dose: 100 mg Patient Own Lapatinib250mg Tablet Tykerb 1,250 each PO DAILY [facility] Last Admin: 05/17/17 09:55 Dose: 1,250 each - Objective Vital Signs: Vital Signs Temperature 98.0 F 05/17/17 22:00 Pulse Rate 96 H 05/17/17 22:00 Respiratory Rate 20 05/17/17 22:00 Blood Pressure 100/62 05/17/17 22:00 O2 Sat by Pulse Oximetry (%) 96 05/17/17 23:00 Constitutional: Yes: Well Nourished HENT: Yes: WNL Neck: Yes: WNL, Supple Cardiovascular: Yes: WNL, Regular Rate and Rhythm Respiratory: Yes: WNL, Regular, CTA Bilaterally Gastrointestinal: Yes: WNL, Normal Bowel Sounds, Soft Extremities: Yes: WNL Edema: No Labs: CBC, BMP 05/17/17 07:45 05/17/17 07:45 INR, PTT INR 1.27 (0.82-1.09) H 05/13/17 10:39 Problem List - Problems (1) UTI (urinary tract infection) Assessment/Plan: Repeat BC remain negative Cont IV zosyn Code(s): N39.0 - URINARY TRACT INFECTION, SITE NOT SPECIFIED (2) Anemia Assessment/Plan: Multifactorial Due to chronic dz/cancer Code(s): D64.9 - ANEMIA, UNSPECIFIED Qualifiers: Anemia type: unspecified type Qualified Code(s): D64.9 - Anemia, unspecified (3) 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
[2017-05-18] MEDS: PIPERACILLIN/TAZOB 4.5 GM 4.5 GM in DEXTROSE 5%-WATER - 100 ML IVPB SCH ×4 (03:01→21:32)
[2017-05-18] MEDS: INSULIN SLIDING SCALE (NOVOLOG) 1 VIAL SQ SCH ×4 (06:22→22:39)
[2017-05-18] MEDS: INSULIN DETEMIR 100 UNITS/ML MDV SQ SCH ×2 (06:51→16:54)
[2017-05-18] MEDS: FERROUS SO4 325 MG TABLET (FP) PO SCH ×3 (08:16→16:53)
[2017-05-18] MEDS ORDERED: PT OWN MED DRAWER 7, Y5N ONE ×3 (09:27→21:19)
[2017-05-18] MEDS: LOSARTAN POTASSIUM 50 MG TABLET (FP) PO SCH (09:32)
[2017-05-18] MEDS: HYDROCHLOROTHIAZIDE 25 MG TABLET (FP) PO SCH (09:32)
[2017-05-18] MEDS: levETIRAcetam 500 MG TABLET (FP) PO SCH ×2 (09:32→21:32)
[2017-05-18] MEDS: LAPATINIB 250 MG PO SCH (09:33)
[2017-05-18] MEDS: PATIENT OWN MEDICATION PO SCH ×2 (09:34→21:32)
[2017-05-18] MEDS: SODIUM CHLORIDE 1,000 ML IV SCH (14:16)
--- NOTE | 2017-05-18 19:00 | PN ---
Progress Note, Physician History of Present Illness: stable no complaints - Current Medication List Current Medications: Active Medications Capecitabine (Xeloda -) 1,000 mg PO BID [facility] Last Admin: 05/18/17 09:34 Dose: 1,000 mg Ferrous Sulfate (Feosol -) 325 mg PO BID@0800,1730 [facility] Last Admin: 05/18/17 16:53 Dose: 325 mg Hydrochlorothiazide (Hctz -) 25 mg PO DAILY [facility] Last Admin: 05/18/17 09:32 Dose: 25 mg Sodium Chloride (Normal Saline -) 1,000 mls @ 75 mls/hr IV ASDIR [facility] Last Admin: 05/18/17 14:16 Dose: 75 mls/hr Piperacillin Sod/Tazobactam (Sod 4.5 gm/ Dextrose) 100 mls @ 200 mls/hr IVPB Q6H-IV [facility] PRN Reason: Protocol Last Admin: 05/18/17 14:16 Dose: 200 mls/hr Insulin Aspart (Novolog Vial Sliding Scale -) 1 vial SQ ACHS [facility] PRN Reason: Protocol Last Admin: 05/18/17 16:54 Dose: 2 units Insulin Detemir (Levemir Vial) 45 units SQ BID@0700,1630 [facility] Last Admin: 05/18/17 16:54 Dose: 45 units Levetiracetam (Keppra -) 500 mg PO BID [facility] Last Admin: 05/18/17 09:32 Dose: 500 mg Losartan Potassium (Cozaar -) 100 mg PO DAILY [facility] Last Admin: 05/18/17 09:32 Dose: 100 mg Patient Own Lapatinib250mg Tablet Tykerb 1,250 each PO DAILY [facility] Last Admin: 05/18/17 09:33 Dose: 1,250 each - Objective Vital Signs: Vital Signs Temperature 98.1 F 05/18/17 12:00 Pulse Rate 82 05/18/17 12:00 Respiratory Rate 18 05/18/17 12:00 Blood Pressure 112/74 05/18/17 12:00 O2 Sat by Pulse Oximetry (%) 96 05/18/17 08:46 Constitutional: Yes: No Distress, Calm Cardiovascular: Yes: Regular Rate and Rhythm Respiratory: Yes: Regular, CTA Bilaterally Gastrointestinal: Yes: Normal Bowel Sounds, Soft Musculoskeletal: Yes: WNL Extremities: Yes: WNL Neurological: Yes: Alert, Oriented Psychiatric: Yes: Alert, Oriented Labs: CBC, BMP 05/17/17 07:45 05/17/17 07:45 INR, PTT INR 1.27 (0.82-1.09) H 05/13/17 10:39 Assessment/Plan Problem List - Problems (1) Bacteremia Code(s): R78.81 - BACTEREMIA (2) Fever Code(s): R50.9 - FEVER, UNSPECIFIED (3) Generalized weakness Code(s): R53.1 - WEAKNESS (4) Sepsis Code(s): A41.9 - SEPSIS, UNSPECIFIED ORGANISM (5) Breast CA Code(s): C50.919 - MALIGNANT NEOPLASM OF UNSP SITE OF UNSPECIFIED FEMALE BREAST Qualifiers: Breast location: overlapping sites of breast Laterality: right (6) Diabetes Code(s): E11.9 - TYPE 2 DIABETES MELLITUS WITHOUT COMPLICATIONS Qualifiers: Diabetes mellitus type: type 2 Diabetes mellitus complication status: without complication (7) UTI (urinary tract infection) Code(s): N39.0 - URINARY TRACT INFECTION, SITE NOT SPECIFIED plan continue current abx iv abx till then can switch to oral augmentin 875 mg bid for another 7 days
--- NOTE | 2017-05-18 22:11 | PN ---
Progress Note, Physician History of Present Illness: No new complaints - Current Medication List Current Medications: Active Medications Capecitabine (Xeloda -) 1,000 mg PO BID [facility] Last Admin: 05/18/17 21:32 Dose: 1,000 mg Ferrous Sulfate (Feosol -) 325 mg PO BID@0800,1730 [facility] Last Admin: 05/18/17 16:53 Dose: 325 mg Hydrochlorothiazide (Hctz -) 25 mg PO DAILY [facility] Last Admin: 05/18/17 09:32 Dose: 25 mg Sodium Chloride (Normal Saline -) 1,000 mls @ 75 mls/hr IV ASDIR [facility] Last Admin: 05/18/17 14:16 Dose: 75 mls/hr Piperacillin Sod/Tazobactam (Sod 4.5 gm/ Dextrose) 100 mls @ 200 mls/hr IVPB Q6H-IV [facility] PRN Reason: Protocol Last Admin: 05/18/17 21:32 Dose: 200 mls/hr Insulin Aspart (Novolog Vial Sliding Scale -) 1 vial SQ ACHS [facility] PRN Reason: Protocol Last Admin: 05/18/17 16:54 Dose: 2 units Insulin Detemir (Levemir Vial) 45 units SQ BID@0700,1630 [facility] Last Admin: 05/18/17 16:54 Dose: 45 units Levetiracetam (Keppra -) 500 mg PO BID [facility] Last Admin: 05/18/17 21:32 Dose: 500 mg Losartan Potassium (Cozaar -) 100 mg PO DAILY [facility] Last Admin: 05/18/17 09:32 Dose: 100 mg Patient Own Lapatinib250mg Tablet Tykerb 1,250 each PO DAILY [facility] Last Admin: 05/18/17 09:33 Dose: 1,250 each - Objective Vital Signs: Vital Signs Temperature 98.1 F 05/18/17 12:00 Pulse Rate 82 05/18/17 12:00 Respiratory Rate 18 05/18/17 12:00 Blood Pressure 112/74 05/18/17 12:00 O2 Sat by Pulse Oximetry (%) 96 05/18/17 08:46 Constitutional: Yes: Well Nourished Neck: Yes: WNL, Supple Cardiovascular: Yes: WNL, Regular Rate and Rhythm Respiratory: Yes: WNL, Regular, CTA Bilaterally Gastrointestinal: Yes: WNL, Normal Bowel Sounds, Soft, Abdomen, Obese Edema: LLE: Trace, RLE: Trace Labs: CBC, BMP 05/17/17 07:45 05/17/17 07:45 INR, PTT INR 1.27 (0.82-1.09) H 05/13/17 10:39 Problem List - Problems (1) UTI (urinary tract infection) Assessment/Plan: Repeat BC remain negative Cont IV zosyn Change to po antibx as per ID Code(s): N39.0 - URINARY TRACT INFECTION, SITE NOT SPECIFIED (2) Anemia Assessment/Plan: Multifactorial Due to chronic dz/cancer Check H/H in am Code(s): D64.9 - ANEMIA, UNSPECIFIED Qualifiers: Anemia type: unspecified type Qualified Code(s): D64.9 - Anemia, unspecified (3) 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
[2017-05-19] MEDS: SODIUM CHLORIDE 1,000 ML IV SCH (02:13)
[2017-05-19] MEDS: PIPERACILLIN/TAZOB 4.5 GM 4.5 GM in DEXTROSE 5%-WATER - 100 ML IVPB SCH ×4 (02:14→22:07)
[2017-05-19] MEDS: INSULIN SLIDING SCALE (NOVOLOG) 1 VIAL SQ SCH ×4 (06:54→22:11)
[2017-05-19] MEDS: INSULIN DETEMIR 100 UNITS/ML MDV SQ SCH ×2 (06:55→16:47)
[2017-05-19] MEDS: FERROUS SO4 325 MG TABLET (FP) PO SCH ×2 (08:52→16:48)
[2017-05-19 08:55] LABS: BASO % 0.3 % (0-2.0); EOS % 0.5 % (0-4.5); HEMATOCRIT 26.3 % (32.4-45.2); HEMOGLOBIN 8.2 GM/dL (10.7-15.3); LYMPH % 9.4 % (8-40); MCH 23.9 pg (25.7-33.7); MCHC 31.3 g/dl (32.0-36.0); MEAN CELL VOLUME 76.4 fl (80-96); MEAN PLT VOLUME 8.5 fl (7.5-11.1); MONO % 3.8 % (3.8-10.2); PLATELET COUNT 336 K/MM3 (134-434); RBC 3.44 M/mm3 (3.60-5.2); RDW 21.4 % (11.6-15.6); WHITE BLOOD COUNT 12.6 K/mm3 (4.0-10.0)
[2017-05-19 08:58] LABS: ADD RBC MORPHOLOGY YES
[2017-05-19 09:13] LABS: ANISOCYTOSIS 2+; MACROCYTOSIS 1+; TARGET CELLS 1+
[2017-05-19 09:14] LABS: OVALOCYTE 1+; PLATELET ESTIMATE ADEQUATE
[2017-05-19 09:17] LABS: ANION GAP 12 (8-16); BILIRUBIN,TOTAL 0.4 mg/dL (0.2-1.0); BLOOD UREA NITROGEN 7 mg/dL (7-18); CALCIUM 8.8 mg/dL (8.5-10.1); CHLORIDE 102 mmol/L (98-107); CO2 25 mmol/L (21-32); CREATININE 0.9 mg/dL (0.55-1.02); GLUCOSE,RANDOM 131 mg/dL (74-106); POTASSIUM 3.9 mmol/L (3.5-5.1); SGOT/AST 38 U/L (15-37); SGPT/ALT 19 U/L (12-78); SODIUM 139 mmol/L (136-145); TOT PROT 6.6 g/dl (6.4-8.2)
[2017-05-19 09:18] LABS: ALK PHOS 138 U/L (45-117)
[2017-05-19] MEDS ORDERED: PT OWN MED DRAWER 7, Y5N ONE ×3 (09:50→21:14)
[2017-05-19] MEDS: levETIRAcetam 500 MG TABLET (FP) PO SCH ×2 (09:53→22:10)
[2017-05-19] MEDS: LOSARTAN POTASSIUM 50 MG TABLET (FP) PO SCH (09:53)
[2017-05-19] MEDS: HYDROCHLOROTHIAZIDE 25 MG TABLET (FP) PO SCH (09:53)
[2017-05-19] MEDS: LAPATINIB 250 MG PO SCH (09:54)
[2017-05-19] MEDS: PATIENT OWN MEDICATION PO SCH ×2 (09:58→22:12)
--- NOTE | 2017-05-19 12:39 | PN ---
Progress Note, Physician History of Present Illness: doing well no issues - Current Medication List Current Medications: Active Medications Capecitabine (Xeloda -) 1,000 mg PO BID [facility] Last Admin: 05/19/17 09:58 Dose: 1,000 mg Ferrous Sulfate (Feosol -) 325 mg PO BID@0800,1730 [facility] Last Admin: 05/19/17 08:52 Dose: 325 mg Hydrochlorothiazide (Hctz -) 25 mg PO DAILY [facility] Last Admin: 05/19/17 09:53 Dose: 25 mg Sodium Chloride (Normal Saline -) 1,000 mls @ 75 mls/hr IV ASDIR [facility] Last Admin: 05/19/17 02:13 Dose: 75 mls/hr Piperacillin Sod/Tazobactam (Sod 4.5 gm/ Dextrose) 100 mls @ 200 mls/hr IVPB Q6H-IV JD PRN Reason: Protocol Last Admin: 05/19/17 09:51 Dose: 200 mls/hr Insulin Aspart (Novolog Vial Sliding Scale -) 1 vial SQ ACHS [facility] PRN Reason: Protocol Last Admin: 05/19/17 11:59 Dose: 2 units Insulin Detemir (Levemir Vial) 45 units SQ BID@0700,1630 [facility] Last Admin: 05/19/17 06:55 Dose: Not Given Levetiracetam (Keppra -) 500 mg PO BID [facility] Last Admin: 05/19/17 09:53 Dose: 500 mg Losartan Potassium (Cozaar -) 100 mg PO DAILY [facility] Last Admin: 05/19/17 09:53 Dose: 100 mg Patient Own Lapatinib250mg Tablet Tykerb 1,250 each PO DAILY [facility] Last Admin: 05/19/17 09:54 Dose: 1,250 each - Objective Vital Signs: Vital Signs Temperature 98.1 F 05/19/17 08:00 Pulse Rate 87 05/19/17 08:00 Respiratory Rate 18 05/19/17 08:00 Blood Pressure 117/77 05/19/17 08:00 O2 Sat by Pulse Oximetry (%) 96 05/18/17 21:00 Constitutional: Yes: No Distress, Calm Neck: Yes: Supple, Trachea Midline Cardiovascular: Yes: Regular Rate and Rhythm Respiratory: Yes: Regular, CTA Bilaterally Gastrointestinal: Yes: Normal Bowel Sounds, Soft Musculoskeletal: Yes: WNL Extremities: Yes: WNL Integumentary: Yes: Other (port site looks good) Neurological: Yes: Alert, Oriented Psychiatric: Yes: Alert, Oriented Labs: CBC, BMP 05/19/17 08:00 05/19/17 08:00 INR, PTT INR 1.27 (0.82-1.09) H 05/13/17 10:39 Assessment/Plan Problem List - Problems (1) Bacteremia Code(s): R78.81 - BACTEREMIA (2) Fever Code(s): R50.9 - FEVER, UNSPECIFIED (3) Generalized weakness Code(s): R53.1 - WEAKNESS (4) Sepsis Code(s): A41.9 - SEPSIS, UNSPECIFIED ORGANISM (5) Breast CA Code(s): C50.919 - MALIGNANT NEOPLASM OF UNSP SITE OF UNSPECIFIED FEMALE BREAST Qualifiers: Breast location: overlapping sites of breast Laterality: right (6) Diabetes Code(s): E11.9 - TYPE 2 DIABETES MELLITUS WITHOUT COMPLICATIONS Qualifiers: Diabetes mellitus type: type 2 Diabetes mellitus complication status: without complication (7) UTI (urinary tract infection) Code(s): N39.0 - URINARY TRACT INFECTION, SITE NOT SPECIFIED plan tomorrow last dose of iv abx then can be switched to oral augmentin 875mg bid for another 7 more days
[2017-05-19] MEDS ORDERED: INSULIN (NOVOLOG) ASPART 100 UNITS/ML 10ML VIAL ONE (17:16)
--- NOTE | 2017-05-19 22:13 | PN ---
Progress Note, Physician History of Present Illness: No new complaints - Current Medication List Current Medications: Active Medications Capecitabine (Xeloda -) 1,000 mg PO BID [facility] Last Admin: 05/19/17 09:58 Dose: 1,000 mg Ferrous Sulfate (Feosol -) 325 mg PO BID@0800,1730 [facility] Last Admin: 05/19/17 16:48 Dose: 325 mg Hydrochlorothiazide (Hctz -) 25 mg PO DAILY [facility] Last Admin: 05/19/17 09:53 Dose: 25 mg Sodium Chloride (Normal Saline -) 1,000 mls @ 75 mls/hr IV ASDIR [facility] Last Admin: 05/19/17 02:13 Dose: 75 mls/hr Piperacillin Sod/Tazobactam (Sod 4.5 gm/ Dextrose) 100 mls @ 200 mls/hr IVPB Q6H-IV JD PRN Reason: Protocol Last Admin: 05/19/17 15:44 Dose: 200 mls/hr Insulin Aspart (Novolog Vial Sliding Scale -) 1 vial SQ ACHS [facility] PRN Reason: Protocol Last Admin: 05/19/17 16:47 Dose: 4 units Insulin Detemir (Levemir Vial) 45 units SQ BID@0700,1630 [facility] Last Admin: 05/19/17 16:47 Dose: 45 units Levetiracetam (Keppra -) 500 mg PO BID [facility] Last Admin: 05/19/17 09:53 Dose: 500 mg Losartan Potassium (Cozaar -) 100 mg PO DAILY [facility] Last Admin: 05/19/17 09:53 Dose: 100 mg Patient Own Lapatinib250mg Tablet Tykerb 1,250 each PO DAILY [facility] Last Admin: 05/19/17 09:54 Dose: 1,250 each - Objective Vital Signs: Vital Signs Temperature 98.9 F 05/19/17 18:59 Pulse Rate 82 05/19/17 18:59 Respiratory Rate 20 05/19/17 18:59 Blood Pressure 122/75 05/19/17 18:59 O2 Sat by Pulse Oximetry (%) 96 05/19/17 09:00 Neck: Yes: WNL, Supple Cardiovascular: Yes: WNL, Regular Rate and Rhythm Respiratory: Yes: WNL, Regular, CTA Bilaterally Gastrointestinal: Yes: WNL, Normal Bowel Sounds, Soft Edema: No Labs: CBC, BMP 05/19/17 08:00 05/19/17 08:00 INR, PTT INR 1.27 (0.82-1.09) H 05/13/17 10:39 Problem List - Problems (1) UTI (urinary tract infection) Assessment/Plan: Repeat BC remain negative Cont IV zosyn Change to po antibxs after dose of IV antibx tomorrow Check wbc DC planning Code(s): N39.0 - URINARY TRACT INFECTION, SITE NOT SPECIFIED (2) Anemia Assessment/Plan: Multifactorial Due to chronic dz/cancer Code(s): D64.9 - ANEMIA, UNSPECIFIED Qualifiers: Anemia type: unspecified type Qualified Code(s): D64.9 - Anemia, unspecified (3) 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
[2017-05-20] MEDS ORDERED: PT OWN MED DRAWER 7, Y5N ONE ×4 (01:28→21:17)
[2017-05-20] MEDS: PIPERACILLIN/TAZOB 4.5 GM 4.5 GM in DEXTROSE 5%-WATER - 100 ML IVPB SCH ×4 (02:19→21:47)
[2017-05-20] MEDS: INSULIN SLIDING SCALE (NOVOLOG) 1 VIAL SQ SCH ×4 (06:21→21:48)
[2017-05-20] MEDS: INSULIN DETEMIR 100 UNITS/ML MDV SQ SCH ×2 (06:21→16:56)
[2017-05-20 09:04] LABS: ALBUMIN 1.9 g/dl (3.4-5.0); ANION GAP 10 (8-16); BILIRUBIN,TOTAL 0.4 mg/dL (0.2-1.0); BLOOD UREA NITROGEN 8 mg/dL (7-18); CALCIUM 8.4 mg/dL (8.5-10.1); CHLORIDE 105 mmol/L (98-107); CO2 26 mmol/L (21-32); CREATININE 0.9 mg/dL (0.55-1.02); GLUCOSE,RANDOM 83 mg/dL (74-106); POTASSIUM 3.7 mmol/L (3.5-5.1); SGOT/AST 36 U/L (15-37); SGPT/ALT 16 U/L (12-78); SODIUM 141 mmol/L (136-145); TOT PROT 5.8 g/dl (6.4-8.2)
[2017-05-20 09:05] LABS: ALK PHOS 121 U/L (45-117)
[2017-05-20 09:41] LABS: BASO % 0.4 % (0-2.0); EOS % 0.5 % (0-4.5); HEMATOCRIT 21.9 % (32.4-45.2); LYMPH % 12.2 % (8-40); MCH 24.3 pg (25.7-33.7); MEAN PLT VOLUME 8.8 fl (7.5-11.1); MONO % 5.4 % (3.8-10.2); NEUT % 81.5 % (42.8-82.8); PLATELET COUNT 398 K/MM3 (134-434); RBC 2.88 M/mm3 (3.60-5.2); RDW 21.2 % (11.6-15.6); WHITE BLOOD COUNT 10.9 K/mm3 (4.0-10.0)
[2017-05-20] MEDS: FERROUS SO4 325 MG TABLET (FP) PO SCH ×2 (09:47→17:15)
[2017-05-20] MEDS: HYDROCHLOROTHIAZIDE 25 MG TABLET (FP) PO SCH (09:47)
[2017-05-20] MEDS: levETIRAcetam 500 MG TABLET (FP) PO SCH ×2 (09:47→21:47)
[2017-05-20] MEDS: LOSARTAN POTASSIUM 50 MG TABLET (FP) PO SCH (09:47)
[2017-05-20] MEDS: PATIENT OWN MEDICATION PO SCH ×3 (10:44→22:00)
[2017-05-20] MEDS: LAPATINIB 250 MG PO SCH (10:44)
[2017-05-20] MEDS ORDERED: MAG HYDROX/AL HYDROX/SIMETH 30 ML UNIT-DOSE CUP PO ONE (11:00)
[2017-05-20] MEDS: SODIUM CHLORIDE 1,000 ML IV SCH (12:39)
--- NOTE | 2017-05-20 14:16 | PN ---
Progress Note, Physician History of Present Illness: stable no issues - Current Medication List Current Medications: Active Medications Capecitabine (Xeloda -) 1,000 mg PO BID [facility] Last Admin: 05/20/17 10:44 Dose: 1,000 mg Ferrous Sulfate (Feosol -) 325 mg PO BID@0800,1730 [facility] Last Admin: 05/20/17 09:47 Dose: 325 mg Hydrochlorothiazide (Hctz -) 25 mg PO DAILY [facility] Last Admin: 05/20/17 09:47 Dose: 25 mg Sodium Chloride (Normal Saline -) 1,000 mls @ 75 mls/hr IV ASDIR [facility] Last Admin: 05/20/17 12:39 Dose: 75 mls/hr Piperacillin Sod/Tazobactam (Sod 4.5 gm/ Dextrose) 100 mls @ 200 mls/hr IVPB Q6H-IV JD PRN Reason: Protocol Last Admin: 05/20/17 09:47 Dose: 200 mls/hr Insulin Aspart (Novolog Vial Sliding Scale -) 1 vial SQ ACHS [facility] PRN Reason: Protocol Last Admin: 05/20/17 11:24 Dose: Not Given Insulin Detemir (Levemir Vial) 45 units SQ BID@0700,1630 [facility] Last Admin: 05/20/17 06:21 Dose: Not Given Levetiracetam (Keppra -) 500 mg PO BID [facility] Last Admin: 05/20/17 09:47 Dose: 500 mg Losartan Potassium (Cozaar -) 100 mg PO DAILY [facility] Last Admin: 05/20/17 09:47 Dose: 100 mg Patient Own Lapatinib250mg Tablet Tykerb 1,250 each PO DAILY [facility] Last Admin: 05/20/17 10:44 Dose: 1,250 each - Objective Vital Signs: Vital Signs Temperature 98.7 F 05/20/17 08:27 Pulse Rate 81 05/20/17 08:27 Respiratory Rate 18 05/20/17 08:27 Blood Pressure 134/82 05/20/17 08:27 O2 Sat by Pulse Oximetry (%) 97 05/20/17 08:39 Constitutional: Yes: No Distress, Calm Cardiovascular: Yes: Regular Rate and Rhythm Respiratory: Yes: Regular, CTA Bilaterally Gastrointestinal: Yes: Normal Bowel Sounds, Soft Musculoskeletal: Yes: WNL Extremities: Yes: WNL Neurological: Yes: Alert, Oriented Psychiatric: Yes: Alert, Oriented Labs: CBC, BMP 05/20/17 07:45 05/20/17 07:45 INR, PTT INR 1.27 (0.82-1.09) H 05/13/17 10:39 Assessment/Plan Problem List - Problems (1) Bacteremia Code(s): R78.81 - BACTEREMIA (2) Fever Code(s): R50.9 - FEVER, UNSPECIFIED (3) Generalized weakness Code(s): R53.1 - WEAKNESS (4) Sepsis Code(s): A41.9 - SEPSIS, UNSPECIFIED ORGANISM (5) Breast CA Code(s): C50.919 - MALIGNANT NEOPLASM OF UNSP SITE OF UNSPECIFIED FEMALE BREAST Qualifiers: Breast location: overlapping sites of breast Laterality: right (6) Diabetes Code(s): E11.9 - TYPE 2 DIABETES MELLITUS WITHOUT COMPLICATIONS Qualifiers: Diabetes mellitus type: type 2 Diabetes mellitus complication status: without complication (7) UTI (urinary tract infection) Code(s): N39.0 - URINARY TRACT INFECTION, SITE NOT SPECIFIED plan continue iv today then can switch to oral augmentin 875 mg bid for another 6 days
[2017-05-20] MEDS ORDERED: INSULIN (NOVOLOG) ASPART 100 UNITS/ML 10ML VIAL ONE (15:53)
--- NOTE | 2017-05-20 23:47 | PN ---
Progress Note, Physician - Current Medication List Current Medications: Active Medications Capecitabine (Xeloda -) 1,000 mg PO BID [facility] Last Admin: 05/20/17 21:48 Dose: 1,000 mg Ferrous Sulfate (Feosol -) 325 mg PO BID@0800,1730 [facility] Last Admin: 05/20/17 17:15 Dose: 325 mg Hydrochlorothiazide (Hctz -) 25 mg PO DAILY [facility] Last Admin: 05/20/17 09:47 Dose: 25 mg Sodium Chloride (Normal Saline -) 1,000 mls @ 75 mls/hr IV ASDIR [facility] Last Admin: 05/20/17 12:39 Dose: 75 mls/hr Piperacillin Sod/Tazobactam (Sod 4.5 gm/ Dextrose) 100 mls @ 200 mls/hr IVPB Q6H-IV JD PRN Reason: Protocol Last Admin: 05/20/17 21:47 Dose: 200 mls/hr Insulin Aspart (Novolog Vial Sliding Scale -) 1 vial SQ ACHS [facility] PRN Reason: Protocol Last Admin: 05/20/17 21:48 Dose: Not Given Levetiracetam (Keppra -) 500 mg PO BID [facility] Last Admin: 05/20/17 21:47 Dose: 500 mg Losartan Potassium (Cozaar -) 100 mg PO DAILY [facility] Last Admin: 05/20/17 09:47 Dose: 100 mg Patient Own Lapatinib250mg Tablet Tykerb 1,250 each PO DAILY [facility] Last Admin: 05/20/17 10:44 Dose: 1,250 each - Objective Vital Signs: Vital Signs Temperature 98.2 F 05/20/17 14:11 Pulse Rate 95 H 05/20/17 14:11 Respiratory Rate 20 05/20/17 14:11 Blood Pressure 125/79 05/20/17 14:11 O2 Sat by Pulse Oximetry (%) 97 05/20/17 08:39 Labs: CBC, BMP 05/20/17 07:45 05/20/17 07:45 INR, PTT INR 1.27 (0.82-1.09) H 05/13/17 10:39 Problem List - Problems (1) UTI (urinary tract infection) Code(s): N39.0 - URINARY TRACT INFECTION, SITE NOT SPECIFIED (2) Anemia Code(s): D64.9 - ANEMIA, UNSPECIFIED Qualifiers: Anemia type: unspecified type Qualified Code(s): D64.9 - Anemia, unspecified (3) Breast CA Code(s): C50.919 - MALIGNANT NEOPLASM OF UNSP SITE OF UNSPECIFIED FEMALE BREAST Qualifiers: Breast location: overlapping sites of breast Laterality: right (4) Diabetes Code(s): E11.9 - TYPE 2 DIABETES MELLITUS WITHOUT COMPLICATIONS Qualifiers: Diabetes mellitus type: type 2 Diabetes mellitus complication status: without complication (5) Hypertension Code(s): I10 - ESSENTIAL (PRIMARY) HYPERTENSION
[2017-05-21] MEDS: PIPERACILLIN/TAZOB 4.5 GM 4.5 GM in DEXTROSE 5%-WATER - 100 ML IVPB SCH ×2 (02:39→08:22)
[2017-05-21] MEDS: INSULIN SLIDING SCALE (NOVOLOG) 1 VIAL SQ SCH ×2 (06:51→11:46)
[2017-05-21] MEDS ORDERED: PT OWN MED DRAWER 7, Y5N ONE ×3 (08:20→14:48)
[2017-05-21] MEDS: FERROUS SO4 325 MG TABLET (FP) PO SCH (08:22)
[2017-05-21] MEDS: PATIENT OWN MEDICATION PO SCH (09:33)
[2017-05-21] MEDS: LOSARTAN POTASSIUM 50 MG TABLET (FP) PO SCH (09:38)
[2017-05-21] MEDS: HYDROCHLOROTHIAZIDE 25 MG TABLET (FP) PO SCH (09:38)
[2017-05-21] MEDS: LAPATINIB 250 MG PO SCH (09:38)
[2017-05-21] MEDS: levETIRAcetam 500 MG TABLET (FP) PO SCH (09:38)
[2017-05-21 13:38] VITALS: BP 131/72; PULSE 92; TEMP 98.3
--- NOTE | 2017-05-21 14:38 | PN ---
Progress Note, Physician History of Present Illness: doing well received transfusion - Current Medication List Current Medications: Active Medications Amoxicillin/Clavulanate Potassium (Augmentin - 875mg Tablet) 1 tab PO BID@0800, 1730 [facility] Capecitabine (Xeloda -) 1,000 mg PO BID [facility] Last Admin: 05/21/17 09:33 Dose: Not Given Ferrous Sulfate (Feosol -) 325 mg PO BID@0800,1730 [facility] Last Admin: 05/21/17 08:22 Dose: 325 mg Hydrochlorothiazide (Hctz -) 25 mg PO DAILY [facility] Last Admin: 05/21/17 09:38 Dose: 25 mg Sodium Chloride (Normal Saline -) 1,000 mls @ 75 mls/hr IV ASDIR [facility] Last Admin: 05/20/17 12:39 Dose: 75 mls/hr Insulin Aspart (Novolog Vial Sliding Scale -) 1 vial SQ ACHS [facility] PRN Reason: Protocol Last Admin: 05/21/17 11:46 Dose: 4 units Levetiracetam (Keppra -) 500 mg PO BID [facility] Last Admin: 05/21/17 09:38 Dose: 500 mg Losartan Potassium (Cozaar -) 100 mg PO DAILY [facility] Last Admin: 05/21/17 09:38 Dose: 100 mg Patient Own Lapatinib250mg Tablet Tykerb 1,250 each PO DAILY [facility] Last Admin: 05/21/17 09:38 Dose: 1,250 each - Objective Vital Signs: Vital Signs Temperature 98.3 F 05/21/17 10:00 Pulse Rate 92 H 05/21/17 10:00 Respiratory Rate 20 05/21/17 10:00 Blood Pressure 131/72 05/21/17 10:00 O2 Sat by Pulse Oximetry (%) 97 05/20/17 21:00 Constitutional: Yes: No Distress, Calm Neck: Yes: Supple Cardiovascular: Yes: Regular Rate and Rhythm Respiratory: Yes: Regular, CTA Bilaterally Gastrointestinal: Yes: Normal Bowel Sounds, Soft Musculoskeletal: Yes: WNL Extremities: Yes: WNL Neurological: Yes: Alert, Oriented Psychiatric: Yes: Alert, Oriented Labs: CBC, BMP 05/20/17 07:45 05/20/17 07:45 INR, PTT INR 1.27 (0.82-1.09) H 05/13/17 10:39 Assessment/Plan Problem List - Problems (1) Bacteremia Code(s): R78.81 - BACTEREMIA (2) Fever Code(s): R50.9 - FEVER, UNSPECIFIED (3) Generalized weakness Code(s): R53.1 - WEAKNESS (4) Sepsis Code(s): A41.9 - SEPSIS, UNSPECIFIED ORGANISM (5) Breast CA Code(s): C50.919 - MALIGNANT NEOPLASM OF UNSP SITE OF UNSPECIFIED FEMALE BREAST Qualifiers: Breast location: overlapping sites of breast Laterality: right (6) Diabetes Code(s): E11.9 - TYPE 2 DIABETES MELLITUS WITHOUT COMPLICATIONS Qualifiers: Diabetes mellitus type: type 2 Diabetes mellitus complication status: without complication (7) UTI (urinary tract infection) Code(s): N39.0 - URINARY TRACT INFECTION, SITE NOT SPECIFIED plan switched to oral augmentin to continue for another 6 days rewst as per primary team
[2017-05-21] MEDS ORDERED: AMOX TR/POT CLAV 875MG/125MG TABLETS (FP) PO SCH (17:30)
--- NOTE | 2017-05-22 20:30 | DS ---
Physical Examination Vital Signs: Vital Signs Temperature 98.3 F 05/21/17 10:00 Pulse Rate 92 H 05/21/17 10:00 Respiratory Rate 20 05/21/17 10:00 Blood Pressure 131/72 05/21/17 10:00 O2 Sat by Pulse Oximetry (%) 97 05/20/17 21:00 Constitutional: Yes: No Distress Cardiovascular: Yes: Regular Rate and Rhythm Respiratory: Yes: Regular, CTA Bilaterally Gastrointestinal: Yes: Normal Bowel Sounds, Soft Labs: CBC, BMP 05/20/17 07:45 05/20/17 07:45 Discharge Summary Reason For Visit: UROSEPSIS (1) UTI (urinary tract infection) (2) Anemia Due to chronic dz/cancer (3) Breast CA Metastatic to brain (4) Diabetes (5) Hypertension Hospital Course: This is 56 year old female with HTN, DM II, breast Ca on daily chemo PO, metastatic brain ca ([employer] mets in 2014- treated with stereotactic RT) with recent R parietal craniotomy for brain tumor, not on steroids. She presented to the ED for weakness, lethargy and fever. She was unable to get out of bed during the morning, after going to bed in her usual state of health. Her chemo regimen hasn't changed, however per ED record her steroids have decreased. In the ED pt felt better, and was able to lift herself up right in bed. Further evaluation of current malignancy progression is needed. Condition: Good - Instructions Diet, Activity, Other Instructions: 2200 calorie ADA diet and 2 gram sodium diet See Dr Pool in 1 week Referrals: Sintia Pool [Primary Care Provider] - Disposition: HOME - Home Medications Comprehensive Discharge Medication List: Ambulatory Orders Losartan/Hydrochlorothiazide [Losartan-Hctz 100-25 mg Tab] 1 each PO DAILY 03/13 Acetaminophen [Tylenol .Regular Strength -] 650 mg PO Q6H #30 tablet 03/22/16 Ferrous Sulfate 325 mg PO BID 03/22/16 Omeprazole 20 mg PO DAILY 03/22/16 Capecitabine 1,000 mg PO BID 12/16/16 Dexamethasone [Decadron -] 4 mg PO TID 12/16/16 Lapatinib Ditosylate [Tykerb] 1,250 mg PO DAILY 12/16/16 Capecitabine [Xeloda -] 1,000 mg PO BID tablet 12/25/16 Dexamethasone [Decadron -] 4 mg PO Q6H #120 tablet 12/25/16 Insulin (Levemir) [Levemir Vial] 45 units SQ BID@0700,1630 ml 12/25/16 Levetiracetam [Keppra -] 500 mg PO BID tablet 12/25/16 Potassium Chloride [K-Dur -] 20 meq PO DAILY #30 tablet.er 12/25/16 Dexamethasone [Decadron -] 4 mg PO QID #28 tablet 04/15/17 Amoxicillin/Potassium Clav [Augmentin 875-125 Tablet] 1 each PO BID #12 tablet 05/21/17 Capecitabine [Xeloda -] 1,000 mg PO BID tablet 05/21/17
== END 2017-05-21 15:35 | disposition home or self-care (01) | DRG 720 ==
LOC: JER 10:16 → JERBED 14:14 → J6S 17:12
PROVIDERS: ADMIT Hospitalist; ATTEND Internal Medicine
DX: A41.9 Sepsis, unspecified organism (principal); N39.0 Urinary tract infection, site not specified; C79.31 Secondary malignant neoplasm of brain; D64.9 Anemia, unspecified; E11.9 Type 2 diabetes mellitus without complications; I10 Essential (primary) hypertension; R53.1 Weakness; C50.911 Malignant neoplasm of unspecified site of right female breast; D72.829 Elevated white blood cell count, unspecified; G93.6 Cerebral edema; N17.9 Acute kidney failure, unspecified; E87.1 Hypo-osmolality and hyponatremia; D69.6 Thrombocytopenia, unspecified
CPT/HCPCS: 36415; 36430; 71010-TC; 80053; 81003; 81015; 82550; 82553; 82803; 82947; 83605; 83735; 84100; 84132; 84484; 85025; 85610; 85730; 86850; 86900; 86901; 86922; 87040; 87086; 87186; 87804; 90670; 93005; 93010; 99285-25; J8521; P9038; P9058

== ENCOUNTER 2017-06-23 12:39 | Emergency (ER) | payer OTHER ==
[2017-06-23 12:50] VITALS: BP 115/74; PULSE 100; TEMP 98.2; BMI 29.7
[2017-06-23] MEDS ORDERED: KETOROLAC TROMETHAMINE 60 MG/2 ML VIAL IM ONE (13:39)
[2017-06-23] MEDS ORDERED: LIDOCAINE 5% TOPICAL PATCH TP ONE (13:44)
[2017-06-23] MEDS ORDERED: KETOROLAC TROMETHAMINE 60 MG/2 ML VIAL ONE (13:44)
--- NOTE | 2017-06-23 13:44 | PDOC ---
History of Present Illness - General Chief Complaint: Back Pain Stated Complaint: RT SHOULDER/BACK PAIN Time Seen by Provider: 06/23/17 13:05 History Source: Patient - History of Present Illness Timing/Duration: other Associated Symptoms: denies: chest pain, cough, fever/chills, headaches, nausea/ vomiting, shortness of breath Past History - Past Medical History Allergies/Adverse Reactions: Allergies Allergy/AdvReac Type Severity Reaction Status Date / Time oxycodone HCl [From Percocet] Allergy Verified 05/13/17 10:26 Home Medications: Ambulatory Orders Acetaminophen [Tylenol .Regular Strength -] 650 mg PO Q6H #30 tablet 03/22/16 Ferrous Sulfate 325 mg PO BID 03/22/16 Omeprazole 20 mg PO DAILY 03/22/16 Capecitabine 1,000 mg PO BID 12/16/16 Lapatinib Ditosylate [Tykerb] 1,250 mg PO DAILY 12/16/16 Insulin (Levemir) [Levemir Vial] 45 units SQ BID@0700,1630 ml 12/25/16 Levetiracetam [Keppra -] 500 mg PO BID tablet 12/25/16 Potassium Chloride [K-Dur -] 20 meq PO DAILY #30 tablet.er 12/25/16 Amoxicillin/Potassium Clav [Augmentin 875-125 Tablet] 1 each PO BID #12 tablet 05/21/17 Capecitabine [Xeloda -] 1,000 mg PO BID tablet 05/21/17 Lidocaine 5% Patch [Lidoderm Patch -] 1 patch TP DAILY #7 patch 06/23/17 Anemia: Yes Asthma: No Cancer: Yes (BREAST/BRAIN) Cardiac Disorders: No CVA: No COPD: No CHF: No Dementia: No Diabetes: Yes GI Disorders: No Disorders: No HTN: Yes Hypercholesterolemia: No Liver Disease: No Seizures: Yes Thyroid Disease: No - Surgical History Abdominal Surgery: No Appendectomy: No Cardiac Surgery: No Cholecystectomy: No Lung Surgery: No Neurologic Surgery: Yes (RIGHT PARIETAL CRANIECTOMY 2014 FOR TUMOR) Orthopedic Surgery: No - Immunization History Immunization Up to Date: Yes - Suicide/Smoking/Psychosocial Hx Smoking Status: No Smoking History: Never smoked Have you smoked in the past 12 months: No Number of Cigarettes Smoked Daily: 0 Information on smoking cessation initiated: No Hx Alcohol Use: No Drug/Substance Use Hx: No Substance Use Type: None Hx Substance Use Treatment: No Review of Systems - Review of Systems Constitutional: No: Chills, Fever ABD/GI: No: Diarrhea, Nausea, Vomiting, Abdominal cramping : No: Dysuria Musculoskeletal: Yes: Back Pain Neurological: No: Headache, Numbness, Tingling, Weakness *Physical Exam - Vital Signs Last Vital Signs Temp Pulse Resp BP Pulse Ox 98.2 F 100 H 20 115/74 98 06/23/17 12:47 06/23/17 12:47 06/23/17 12:47 06/23/17 12:47 06/23/17 12:47 - Physical Exam General Appearance: Yes: Apparent Distress. No: Appropriately Dressed HEENT: positive: Normal Voice Neck: negative: Supple Respiratory/Chest: positive: Lungs Clear, Normal Breath Sounds. negative: Respiratory Distress Cardiovascular: positive: Regular Rate, S1, S2 Gastrointestinal/Abdominal: positive: Soft. negative: Tender Musculoskeletal: positive: Other (minimal ttp to R mid back). negative: CVA Tenderness Integumentary: positive: Dry, Warm Neurologic: positive: Fully Oriented, Alert, Normal Mood/Affect ED Treatment Course - RADIOLOGY Radiology Studies Ordered: Category Date Time Status RIBS BILATERAL [RAD] Stat Radiology 06/23/17 13:39 Ordered SPINE-LUMBAR SACRAL [RAD] Stat Radiology 06/23/17 13:39 Ordered Medical Decision Making - Medical Decision Making 06/23/17 13:40 57-year-old female, history of right breast CA with metastases to the brain, not currently on chemotherapy and no surgery, chronic right mid back pain, here with usual pain. Patient admits that she has had right mid back pain for several months, sometimes radiating to her R hip/abdomen, worse when she coughs , sneezes or with certain movements. States her outside oncologist is aware and saw her yesterday and did blood work which was normal as per patient. States M.Angle also sent prescription and for narcotic pain meds but that pharmacy called and states she might not be able to take meds given her known allergy to Percocet (hives). Patient here for pain control. Denies any acute symptoms such as nausea, vomiting, change in bowel movements, dysuria, chest pain, shortness of breath, palpitations, fever or chills. States since back pain started, has not had any x-rays of spine or ribs. No LE weakness, saddle anesthesia or B/B incontinence. Patient appears chronically ill but in no acute distress with reproducible pain to right mid back. No red flags at this time such as cauda equina or infection. Will perform x-ray spine and ribs rule out lytic lesion and control pain in the ED 06/23/17 14:23 Pending XRay read. On chart review, patient has mets to liver,vertebral bodies and sacrum on MRI 06/06, which is most likely source of her chronic pain. No e/ o cauda equina today. 06/23/17 16:37 R lower lobe with atelectasis versus scarring, no infiltrates seen. No acute fractures in ribs or spine. Findings consistent with metastatic disease per radiologist. Patient better with pain meds. Will dc with Lidoderm patches and encourage oncology follow-up this week Rib series read as no acute fracture. 06/23/17 16:38 *DC/Admit/Observation/Transfer Diagnosis at time of Disposition: Back pain Qualifiers: Back pain location: back pain in other location Chronicity: chronic Qualified Code(s): M54.9 - Dorsalgia, unspecified - Discharge Dispostion Disposition: HOME Condition at time of disposition: Improved - Prescriptions Prescriptions: Lidocaine 5% Patch [Lidoderm Patch -] 1 patch TP DAILY #7 patch - Referrals Referrals: Bakari Pool MD [Primary Care Provider] - - Patient Instructions Additional Instructions: Your x-rays were negative for pathological fractures. Use Lidoderm patches as directed. Your MRI in May 2015 showed metastatic disease to your liver, your spine and hip which is most likely the cause for your chronic pain. Please follow-up with your oncologist this week - Post Discharge Activity
[2017-06-23] MEDS ORDERED: LIDOCAINE 5% TOPICAL PATCH ONE (13:46)
== END 2017-06-23 16:59 | disposition home or self-care (01) ==
LOC: JERFT 12:39
PROC: 3E0233Z Introduction of Anti-inflammatory into Muscle, Percutaneous Approach (ICD-10-PCS; principal; 2017-06-23)
DX: M54.9 Dorsalgia, unspecified (principal); G89.29 Other chronic pain; Z85.3 Personal history of malignant neoplasm of breast; C79.9 Secondary malignant neoplasm of unspecified site; Z85.9 Personal history of malignant neoplasm, unspecified
CPT/HCPCS: 71111-TC-FY; 72100-TC-FY; 96372; 99281-25

== ENCOUNTER 2017-10-03 05:33 | Inpatient (IN) | payer OTHER ==
--- NOTE | 2017-10-03 06:17 | PDOC ---
History of Present Illness - General Chief Complaint: Blood Sugar Problem Stated Complaint: WEAKNESS Time Seen by Provider: 10/03/17 05:41 History Source: Patient Exam Limitations: No Limitations - History of Present Illness Initial Comments: 10/03/17 06:17 57y F hx of breast ca (last chemo 1 week ago), HTN, NIDDM, brain tumor (hx of vasogenic edema), presents to the ED with complaint of increased weakness. Per family the pt has been needing more help than usual ambulating, today son helped the pt go the bathrom and she fell. denies any head injury or LOC. pt also ntoes she hsa had increasd headache in the past week. she is on decadron currently. denies any vision changes, n/v, fever/chills, cp, sob. palptations, abd pain. surgical hx: R parietal craniotomy for braint umor Past History - Past Medical History Allergies/Adverse Reactions: Allergies Allergy/AdvReac Type Severity Reaction Status Date / Time Iodinated Contrast- Oral and Allergy Verified 10/06/17 07:44 IV Dye oxycodone HCl [From Percocet] Allergy Verified 10/03/17 05:48 Home Medications: Ambulatory Orders Ferrous Sulfate 325 mg PO BID 03/22/16 Omeprazole 40 mg PO DAILY 03/22/16 Capecitabine 1,000 mg PO BID 12/16/16 Lapatinib Ditosylate [Tykerb] 1,250 mg PO DAILY 12/16/16 levETIRAcetam [Keppra -] 500 mg PO BID tablet 12/25/16 Lidocaine 5% Patch [Lidoderm Patch -] 1 patch TP DAILY #7 patch 06/23/17 Dexamethasone 4 mg PO DAILY 10/03/17 Insulin (Levemir) [Levemir Vial] 20 units SQ AM 10/03/17 Losartan/Hydrochlorothiazide [Losartan-Hctz 100-25 mg Tab] 1 each PO DAILY 10/03 Anemia: Yes Asthma: No Cancer: Yes (BREAST/BRAIN) Cardiac Disorders: No CVA: No COPD: No CHF: No Dementia: No Diabetes: Yes GI Disorders: No Disorders: No HTN: Yes Hypercholesterolemia: No Liver Disease: No Seizures: Yes Thyroid Disease: No - Surgical History Abdominal Surgery: No Appendectomy: No Cardiac Surgery: No Cholecystectomy: No Lung Surgery: No Neurologic Surgery: Yes (RIGHT PARIETAL CRANIECTOMY 2015 FOR TUMOR) Orthopedic Surgery: No - Immunization History Immunization Up to Date: Yes - Suicide/Smoking/Psychosocial Hx Smoking Status: No Smoking History: Never smoked Have you smoked in the past 12 months: No Number of Cigarettes Smoked Daily: 0 Information on smoking cessation initiated: No Hx Alcohol Use: No Drug/Substance Use Hx: No Substance Use Type: None Hx Substance Use Treatment: No Review of Systems - Review of Systems Able to Perform ROS?: Yes Comments:: 10/03/17 06:21 Constitutional - +generalized weakness no reported Fever, Chills, HEENT: no reported vision changes, sore throat Respiratory: no reported cough, sob, hemoptysis Cardiac: no reported chest pain, palpitations, light headedness, leg swelling Abd/GI: no reported abd pain, nausea, vomiting, blood per rectum, melena, diarrhea : no reported dysuria, frequency, discharge Musculskelatal - no reported back pain, joint swelling skin - no reported bruising, erythema, rash neurological: + headache no reported numbness, focal weakness, tingling, ataxia , hematologic: no reported easy bruising, easy bleeding *Physical Exam - Vital Signs Last Vital Signs Temp Pulse Resp BP Pulse Ox 98.9 F 76 16 151/99 96 10/03/17 05:42 10/03/17 05:42 10/03/17 05:42 10/03/17 05:42 10/03/17 05:42 - Physical Exam Comments: 10/03/17 06:22 GENERAL: The patient is awake, alert, slow to answer questions HEAD: Normocephalic, atraumatic. EYES: extraocular movements intact, sclera anicteric, conjunctiva clear, pupils 3 mm symmetric reactive to light ENT: Normal voice, Moist mucous membranes. NECK: Normal range of motion, supple LUNGS: Breath sounds equal, clear to auscultation bilaterally. No wheezes, no rhonchi, no rales. HEART: Regular rate and rhythm, normal S1 and S2 without murmur, rub or gallop. ABDOMEN: Soft, nontender, No guarding, no rebound. . No CVA tenderness EXTREMITIES: Normal range of motion, no edema. No clubbing or cyanosis. No cords, erythema, or tenderness. NEUROLOGICAL: No facial asymmetry, weakness with left shoulder struck, left arm / left leg strength 5-/5, RUE/RLE 5/5, finger to nose normal PSYCH: Normal mood, normal affect. SKIN: Warm, Dry, normal turgor, port in the left chest ED Treatment Course - LABORATORY CBC & Chemistry Diagram: 10/07/17 06:55 10/07/17 16:40 - RADIOLOGY Radiology Studies Ordered: Category Date Time Status HEAD CT WITHOUT CONTRAST [CT] Stat CT Scan 10/03/17 06:16 Ordered CHEST X-RAY PORTABLE* [RAD] Stat Radiology 10/03/17 06:15 Ordered Medical Decision Making - Medical Decision Making 10/03/17 06:23 concern for possible worsening tumor burden due to +neuro symtoms and left sided weakness (this does not seem to have been documented on prior exams) consider possible neutropenia due to recent chemo - no infectious complaints, afebrile here will ck CT will obtain labs to r/o anemia, metabolic derangement, ua to r/o uti/occult uti will reassess PMD: dr. James rivera Onc: Rashel 10/03/17 07:37 signed out to day team to fu with results and reassess the patient *DC/Admit/Observation/Transfer Diagnosis at time of Disposition: Vasogenic cerebral edema - Discharge Dispostion Condition at time of disposition: Guarded - Referrals - Patient Instructions - Post Discharge Activity
[2017-10-03 07:07] LABS: BASO % 0.7 % (0-2.0); EOS % 0.8 % (0-4.5); HEMOGLOBIN 12.8 GM/dL (10.7-15.3); LYMPH % 25.2 % (8-40); MCH 24.3 pg (25.7-33.7); MCHC 32.9 g/dl (32.0-36.0); MEAN CELL VOLUME 73.8 fl (80-96); MEAN PLT VOLUME 9.1 fl (7.5-11.1); MONO % 7.4 % (3.8-10.2); NEUT % 65.9 % (42.8-82.8); PLATELET COUNT 125 K/MM3 (134-434); RBC 5.28 M/mm3 (3.60-5.2); RDW 18.5 % (11.6-15.6); WHITE BLOOD COUNT 9.1 K/mm3 (4.0-10.0)
[2017-10-03 07:26] LABS: ALBUMIN 3.2 g/dl (3.4-5.0); ANION GAP 10 (8-16); BILIRUBIN,TOTAL 0.2 mg/dL (0.2-1.0); BLOOD UREA NITROGEN 16 mg/dL (7-18); CALCIUM 9.2 mg/dL (8.5-10.1); CHLORIDE 102 mmol/L (98-107); CO2 27 mmol/L (21-32); CREATININE 0.8 mg/dL (0.55-1.02); GLUCOSE,RANDOM 238 mg/dL (74-106); POTASSIUM 3.3 mmol/L (3.5-5.1); SGOT/AST 43 U/L (15-37); SGPT/ALT 51 U/L (12-78); SODIUM 139 mmol/L (136-145); TOT PROT 7.8 g/dl (6.4-8.2)
[2017-10-03 07:34] LABS: ALK PHOS 236 U/L (45-117)
[2017-10-03 07:53] LABS: URINE APPEARANCE CLOUDY; URINE BILIRUBIN NEGATIVE (<2.0 mg/dL); URINE COLOR YELLOW; URINE GLUCOSE (UA) 3+ (NEGATIVE); URINE KETONE NEGATIVE (NEGATIVE); URINE NITRITE NEGATIVE (NEGATIVE); URINE PROTEIN NEGATIVE (NEGATIVE)
[2017-10-03 07:56] LABS: URINE LEUK ESTERASE 2+ (NEGATIVE)
[2017-10-03 08:20] LABS: EPI CELLS RARE /HPF (FEW); URINE BACTERIA RARE /hpf (NONE SEEN); URINE MUCUS RARE
[2017-10-03] MEDS ORDERED: CEFTRIAXONE 1,000 MG in DEXTROSE 5%-WATER - 50 ML IVPB ONE (09:44)
[2017-10-03] MEDS ORDERED: CEFTRIAXONE 1 GM/50 ML BAG ONE (10:02)
[2017-10-03] MEDS ORDERED: morphine SULFATE 4 MG/ML VIAL ONE (10:04)
[2017-10-03] MEDS ORDERED: morphine CARPU-JECT 4 MG/1 ML DISP.SYRIN IVPUSH ONE (10:09)
[2017-10-03] MEDS ORDERED: ACETAMINOPHEN 1000 MG/100 ML VIAL (NON FORMULARY) IVPB ONE (10:13)
[2017-10-03] MEDS ORDERED: ACETAMINOPHEN INJECTION 100 ML IVPB ONE (10:13)
[2017-10-03] MEDS ORDERED: DEXAMETHASONE SOD PHOSPHATE 20 MG/5 ML VIAL IVPB ONE (10:13)
--- NOTE | 2017-10-03 10:25 | PDOC ---
*Physical Exam - Vital Signs Last Vital Signs Temp Pulse Resp BP Pulse Ox 98.0 F 61 18 133/79 96 10/03/17 09:55 10/03/17 09:55 10/03/17 09:55 10/03/17 09:55 10/03/17 09:55 <Vu Escalante - Last Filed: 10/03/17 10:33> - Vital Signs Last Vital Signs Temp Pulse Resp BP Pulse Ox 99.8 F H 76 16 151/99 99 10/03/17 07:10 10/03/17 05:42 10/03/17 05:42 10/03/17 05:42 10/03/17 07:10 - Physical Exam Comments: 10/03/17 10:20 bp 151/99 alert lying in stretcher, speaking full sentences, generally weak neuro exam unchanged from prior <Collins Fam - Last Filed: 10/03/17 11:21> ED Treatment Course - LABORATORY CBC & Chemistry Diagram: 10/03/17 06:51 10/03/17 06:51 - ADDITIONAL ORDERS Additional order review: Laboratory Results 10/03/17 10/03/17 07:14 06:51 Sodium 139 Potassium 3.3 L Chloride 102 Carbon Dioxide 27 Anion Gap 10 BUN 16 Creatinine 0.8 Creat Clearance w eGFR > 60 Random Glucose 238 H Calcium 9.2 Total Bilirubin 0.2 D AST 43 H ALT 51 Alkaline Phosphatase 236 H Creatine Kinase 57 Troponin I < 0.02 Total Protein 7.8 Albumin 3.2 L TSH 9.99 H Urine Color Yellow Urine Appearance Cloudy Urine pH 5.0 Ur Specific [place] 1.024 Urine Protein Negative Urine Glucose (UA) 3+ H Urine Ketones Negative Urine Blood 1+ H Urine Nitrite Negative Urine Bilirubin Negative Urine Urobilinogen 2.0 H Ur Leukocyte Esterase 2+ H Urine WBC (Auto) 173 Urine RBC (Auto) 3 Ur Epithelial Cells Rare Urine Bacteria Rare Urine Mucus Rare 10/03/17 06:51 RBC 5.28 H D MCV 73.8 L MCHC 32.9 RDW 18.5 H D MPV 9.1 Neutrophils % 65.9 Lymphocytes % 25.2 D Monocytes % 7.4 Eosinophils % 0.8 Basophils % 0.7 - Medications Given in the ED: ED Medications Discontinued Medications Generic Name Dose Route Start Last Admin Trade Name Freq PRN Reason Stop Dose Admin Acetaminophen 1,000 mg 10/03/17 10:13 10/03/17 10:19 Ofirmev Injection - IVPB 10/03/17 10:14 1,000 mg ONCE ONE Administration Ceftriaxone Sodium 1,000 mg/ 50 mls @ 100 mls/hr 10/03/17 09:44 10/03/17 10: 05 Dextrose IVPB 10/03/17 10:13 100 mls/hr ONCE ONE Administration Morphine Sulfate 4 mg 10/03/17 10:09 10/03/17 10:20 Morphine Injection - IVPUSH 10/03/17 10:10 Not Given ONCE ONE <Vu Escalante - Last Filed: 10/03/17 10:33> - LABORATORY CBC & Chemistry Diagram: 10/03/17 06:51 10/03/17 06:51 - ADDITIONAL ORDERS Additional order review: Laboratory Results 10/03/17 10/03/17 07:14 06:51 Sodium 139 Potassium 3.3 L Chloride 102 Carbon Dioxide 27 Anion Gap 10 BUN 16 Creatinine 0.8 Creat Clearance w eGFR > 60 Random Glucose 238 H Calcium 9.2 Total Bilirubin 0.2 D AST 43 H ALT 51 Alkaline Phosphatase 236 H Creatine Kinase 57 Troponin I < 0.02 Total Protein 7.8 Albumin 3.2 L TSH 9.99 H Urine Color Yellow Urine Appearance Cloudy Urine pH 5.0 Ur Specific [place] 1.024 Urine Protein Negative Urine Glucose (UA) 3+ H Urine Ketones Negative Urine Blood 1+ H Urine Nitrite Negative Urine Bilirubin Negative Urine Urobilinogen 2.0 H Ur Leukocyte Esterase 2+ H Urine WBC (Auto) 173 Urine RBC (Auto) 3 Ur Epithelial Cells Rare Urine Bacteria Rare Urine Mucus Rare 10/03/17 06:51 RBC 5.28 H D MCV 73.8 L MCHC 32.9 RDW 18.5 H D MPV 9.1 Neutrophils % 65.9 Lymphocytes % 25.2 D Monocytes % 7.4 Eosinophils % 0.8 Basophils % 0.7 - Medications Given in the ED: ED Medications Discontinued Medications Generic Name Dose Route Start Last Admin Trade Name Freq PRN Reason Stop Dose Admin Acetaminophen 1,000 mg 10/03/17 10:13 10/03/17 10:19 Ofirmev Injection - IVPB 10/03/17 10:14 1,000 mg ONCE ONE Administration Ceftriaxone Sodium 1,000 mg/ 50 mls @ 100 mls/hr 10/03/17 09:44 10/03/17 10: 05 Dextrose IVPB 10/03/17 10:13 100 mls/hr ONCE ONE Administration Morphine Sulfate 4 mg 10/03/17 10:09 10/03/17 10:20 Morphine Injection - IVPUSH 10/03/17 10:10 Not Given ONCE ONE <Collins Fam - Last Filed: 10/03/17 11:21> Medical Decision Making - Medical Decision Making 10/03/17 10:[address] Kiser at 10:30 am. Case discussed. <Vu Escalante - Last Filed: 10/03/17 10:33> - Medical Decision Making 10/03/17 10:20 Received signout on this 57-year-old woman with history of breast and brain CA currently on chemotherapy, last treatment was about one week ago who presented brought in by ambulance with increasing weakness and headache over the last week. Plan at sign out was to check labs, check CT head, and disposition accordingly. Patient is hemodynamically stable, some generalized weakness, otherwise mentating. Labs are within normal limits no significant pancytopenia in light of recent chemo. + UTI on UA, urine culture sent and will start ceftriaxone. CT head concerning for increasing R sided vasogenic edema compared to prior MRI. 1.2cm shift with subfalcine herniation. Will give IV decadron, Dr. Galindo ( covering Dr. Pool) called, neurosurgery Dr. Palmer consulted, ICU consulted. Son at bedside. Unclear acuity, ? mannitol/hypertonic saline. Discussed with Dr. Galindo, agrees with ICU admission and NSGY consult, awaiting callbacks. 10/03/17 10:[address] Kiser, who knows the patient very well. Vu tumor itself has been stable, the edema however has been increasing. Pt has been tapering her decadron dose at home given side effects of glucose control, weight gain, etc. The edema is felt to be post-radiation therapy from years ago. Feels this is subacute and would not proceed with more aggressive treatment at this time. Awaiting callbacks. 10/03/17 11:20 Accepted for ICU placement by Dr. De La Rosa. Case discussed, agrees with management, will proceed with frequent neuro checks. Received treatment dose decadron. <Collins Fam - Last Filed: 10/03/17 11:21> *DC/Admit/Observation/Transfer <Vu Escalante - Last Filed: 10/03/17 10:33> - Discharge Dispostion Decision to Admit order: Yes <Collins Fam - Last Filed: 10/03/17 11:21> Diagnosis at time of Disposition: Vasogenic cerebral edema - Discharge Dispostion Condition at time of disposition: Guarded
[2017-10-03] MEDS ORDERED: DEXAMETHASONE SOD PHOSPHATE 10 MG/1 ML VIAL ONE (10:31)
--- NOTE | 2017-10-03 11:51 | EKG ---
Test Reason : Blood Pressure : / mmHG Vent. Rate : 068 BPM Atrial Rate : 068 BPM P-R Int : 172 ms QRS Dur : 084 ms QT Int : 406 ms P-R-T Axes : 038 -18 028 degrees QTc Int : 431 ms NORMAL SINUS RHYTHM MINIMAL VOLTAGE CRITERIA FOR LVH, MAY BE NORMAL VARIANT BORDERLINE ECG Confirmed by MD CLARISSA, MEDINA ([id number]) on 10/03/2017 11:51:20 AM Referred By: Confirmed By:MEDINA ROMO MD
--- NOTE | 2017-10-03 13:45 | PN ---
Teaching Attending Note Name of Resident: Isidra Valadez ATTENDING PHYSICIAN STATEMENT I saw and evaluated the patient. I reviewed the resident's note and discussed the case with the resident. I agree with the resident's findings and plan as documented. SUBJECTIVE: Pt seen and examined in the ICU. Briefly, 57yo female with h/o HTN, DM, breast ca with brain met s/p resection 2015 on chemotherapy last week followed at [facility] who was admitted with worsening gait and now s/p fall. Reports left sided weakness and increased headache. No nausea or vomiting. No visual changes. No fevers, chills or sweats. Does report increased urinary frequency. CT head done showing increased right sided cerebral vasogenic edema with mass effect on 3rd and lateral ventricle, midline shift and evidence of subfalcine herniation. OBJECTIVE: Last Vital Signs Temp Pulse Resp BP Pulse Ox 97.7 F 64 18 161/91 94 L 10/03/17 12:09 10/03/17 12:09 10/03/17 12:09 10/03/17 12:10/03/17 12:37 Intake & Output 09/30/17 10/01/17 10/02/17 10/03/17 23:59 23:59 23:59 23:59 Weight 87.4 kg Gen: NAD at rest but slow to respond Heart: RRR Lung: decreased breath sounds at the bases Abd: soft, nontender Ext: no edema Neuro: cranial nerves intact, LUE, LLE 2/5 weakness CBC, BMP 10/03/17 06:51 10/03/17 06:51 Active Medications Dexamethasone Sodium Phosphate (Decadron Injection -) 10 mg IVPUSH Q8H-IV JD Ceftriaxone Sodium 1 gm/ (Dextrose) 100 mls @ 200 mls/hr IVPB DAILY JD PRN Reason: Protocol Stop: 10/05/17 09:59 Insulin Aspart (Novolog Vial Sliding Scale -) 1 vial SQ ACHS JD PRN Reason: Protocol ASSESSMENT AND PLAN: 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
[2017-10-03] MEDS ORDERED: ONDANSETRON 4 MG/2 ML VIAL IVPUSH PRN (13:52)
[2017-10-03] MEDS ORDERED: POTASSIUM CHLORIDE TABS 20 MEQ TABLET.ER (FP) PO ONE (14:15)
[2017-10-03] MEDS ORDERED: INSULIN (NOVOLOG) ASPART 100 UNITS/ML 10ML VIAL SQ ONE ×2 (14:25→21:45)
--- NOTE | 2017-10-03 15:09 | CONSULT ---
Consultation: CONSULT REQUEST: We have been asked to medically evaluate this patient for ( specify). HISTORY OF PRESENT ILLNESS: Patient is a 57 yo F with a Pmhx of R breast cancer (dx 2015, last chemo 1 week ago), HTN, DM, brain mets, hx of vasogenic edema, presented to the ED s/p fall. Patient said she has been feeling L arm and leg weakness over the last 2 weeks. She also complains of generalized headache that also started 2 weeks ago. Says she was walking to the bathroom this morning and fell because she felt her body give out on her. She denies dizziness, loc, sob, chest pain, visual loss, lightheadedness, numbness and tingling. REVIEW OF SYSTEMS: CONSTITUTIONAL: generalized weakness Absent: fever, chills, diaphoresis, malaise, loss of appetite, weight change HEENT: Absent: rhinorrhea, nasal congestion, throat pain, throat swelling, difficulty swallowing, mouth swelling, ear pain, eye pain, visual changes CARDIOVASCULAR: Absent: chest pain, syncope, palpitations, irregular heart rate, lightheadedness , peripheral edema RESPIRATORY: Absent: cough, shortness of breath, dyspnea with exertion, orthopnea, wheezing, stridor, hemoptysis GASTROINTESTINAL: Absent: abdominal pain, abdominal distension, nausea, vomiting, diarrhea, constipation, melena, hematochezia GENITOURINARY: Absent: dysuria, frequency, urgency, hesitancy, hematuria, flank pain, genital pain MUSCULOSKELETAL: Absent: myalgia, arthralgia, joint swelling, back pain, neck pain SKIN: Absent: rash, itching, pallor NEUROLOGIC: headache, unsteady gait, Absent: focal weakness or paresthesias, dizziness, seizure, mental status changes, bladder or bowel incontinence PHYSICAL EXAMINATION Vital Signs - 24 hr 10/03/17 10/03/17 10/03/17 05:42 07:10 09:55 Temperature 98.9 F 99.8 F H 98.0 F Pulse Rate 76 Pulse Rate [ 61 Right] Respiratory 16 18 Rate Blood Pressure 151/99 Blood Pressure 133/79 [Right Arm] O2 Sat by Pulse 96 99 96 Oximetry (%) 10/03/17 10/03/17 10/03/17 11:29 11:45 12:09 Temperature 98.0 F 97.7 F 97.7 F Pulse Rate 58 L 64 Pulse Rate [ 56 L Right] Respiratory 18 17 18 Rate Blood Pressure 154/80 161/91 Blood Pressure 135/87 [Right Arm] O2 Sat by Pulse 98 Oximetry (%) 10/03/17 12:37 Temperature Pulse Rate Pulse Rate [ Right] Respiratory Rate Blood Pressure Blood Pressure [Right Arm] O2 Sat by Pulse 94 L Oximetry (%) GENERAL: NAD, A/o x 3, slow responses HEAD: Normal with no signs of trauma. EYES: Pupils equal, round and reactive to light, extraocular movements intact EARS, NOSE, THROAT:oropharynx clear without exudates. NECK: supple LUNGS: Breath sounds equal, clear to auscultation bilaterally. HEART: Regular rate and rhythm, normal S1 and S2 without murmur, rub or gallop. ABDOMEN: Soft, nontender, not distended, normoactive bowel sounds MUSCULOSKELETAL: 4/5 strength RUE, RLE, 2/5 LUE, LLE UPPER EXTREMITIES: 2+ pulses, warm, well-perfused. LOWER EXTREMITIES: 2+ pulses, warm, well-perfused. No peripheral edema. NEUROLOGICAL: Cranial nerves II-XII intact Laboratory Results - last 24 hr 10/03/17 10/03/17 10/03/17 06:51 06:51 07:14 WBC 9.1 RBC 5.28 H D Hgb 12.8 D Hct 39.0 D MCV 73.8 L MCH 24.3 L MCHC 32.9 RDW 18.5 H D Plt Count 125 L D MPV 9.1 Neutrophils % 65.9 Lymphocytes % 25.2 D Monocytes % 7.4 Eosinophils % 0.8 Basophils % 0.7 Sodium 139 Potassium 3.3 L Chloride 102 Carbon Dioxide 27 Anion Gap 10 BUN 16 Creatinine 0.8 Creat Clearance w eGFR > 60 POC Glucometer Random Glucose 238 H Calcium 9.2 Total Bilirubin 0.2 D AST 43 H ALT 51 Alkaline Phosphatase 236 H Creatine Kinase 57 Troponin I < 0.02 Total Protein 7.8 Albumin 3.2 L TSH 9.99 H Urine Color Yellow Urine Appearance Cloudy Urine pH 5.0 Ur Specific [place] 1.024 Urine Protein Negative Urine Glucose (UA) 3+ H Urine Ketones Negative Urine Blood 1+ H Urine Nitrite Negative Urine Bilirubin Negative Urine Urobilinogen 2.0 H Ur Leukocyte Esterase 2+ H Urine WBC (Auto) 173 Urine RBC (Auto) 3 Ur Epithelial Cells Rare Urine Bacteria Rare Urine Mucus Rare 10/03/17 13:24 WBC RBC Hgb Hct MCV MCH MCHC RDW Plt Count MPV Neutrophils % Lymphocytes % Monocytes % Eosinophils % Basophils % Sodium Potassium Chloride Carbon Dioxide Anion Gap BUN Creatinine Creat Clearance w eGFR POC Glucometer [id number] Random Glucose Calcium Total Bilirubin AST ALT Alkaline Phosphatase Creatine Kinase Troponin I Total Protein Albumin TSH Urine Color Urine Appearance Urine pH Ur Specific [place] Urine Protein Urine Glucose (UA) Urine Ketones Urine Blood Urine Nitrite Urine Bilirubin Urine Urobilinogen Ur Leukocyte Esterase Urine WBC (Auto) Urine RBC (Auto) Ur Epithelial Cells Urine Bacteria Urine Mucus Active Medications Generic Name Dose Route Start Last Admin Trade Name Freq PRN Reason Stop Dose Admin Dexamethasone Sodium Phosphate 10 mg 10/03/17 18:00 Decadron Injection - IVPUSH Q8H-IV JD Ceftriaxone Sodium 1 gm/ 50 mls @ 100 mls/hr 10/04/17 10:00 Dextrose IVPB 10/05/17 09:59 DAILY [facility] Protocol Insulin Aspart 1 vial 10/03/17 16:30 Novolog Vial Sliding Scale - SQ ACHS JD Protocol Levetiracetam 500 mg 10/03/17 22:00 Keppra - PO BID JD Ondansetron HCl 4 mg 10/03/17 13:52 Zofran Injection IVPUSH Q6H PRN NAUSEA AND/OR VOMITING ASSESSMENT/PLAN: Neuro: Head CT: R sided vasogenic edema compared to prior MRI. 1.2cm shift with subfalcine herniation. Patient with Metastatic breast cancer to brain s/p resection of brain met IV decadron 10mg q8h Glucose control while on steroids Keppra 500 bid Zofran q6h Neuro consulted Neuro Surgery consulted Heme/onc consulted : U/A + FU urine cultures IV abx day 1: ceftriaxone Endocrine: Free t3, t4 BGM ISS FEN: No if vluids Potassium repleted puree Dvt: Scds ICU monitoring Dispo: We will continue to follow the patient. Thank you for this consultative opportunity. Visit type - Emergency Visit Emergency Visit: Yes ED Registration Date: 10/03/17 Care time: The patient presented to the Emergency Department on the above date and was hospitalized for further evaluation of their emergent condition. - New Patient This patient is new to me today: Yes Date on this admission: 10/03/17 - Critical Care Critical Care patient: Yes Total Critical Care Time (in minutes): 40 Critical Care Statement: The care of this patient involved high complexity decision making to prevent further life threatening deterioration of the patient 's condition and/or to evaluate & treat vital organ system(s) failure or risk of failure.
--- NOTE | 2017-10-03 15:53 | PN ---
Progress Note (short form) - Note Progress Note: Oncology Hx: History of invasive breast cancer diagnosed in 2013. ER-, CO-, Her-2 positive, initially treated with chemotherapy and herceptin. In 2014, developed [employer] mets treated with stereotactic radiosurgery. Followed by Dr. Kiser. was on Xeloda and lapatinib. Noted that in November 2016 she was found to have vasogenic edema on brain MRI - was unclear whether attributable to recurrent disease versus post-radiation changes at that time. most recently TDM1. Pt seen and examined. Last Vital Signs Temp Pulse Resp BP Pulse Ox 98.5 F 68 19 153/97 94 L 10/03/17 14:00 10/03/17 14:00 10/03/17 14:00 10/03/17 14:00 10/03/17 12:37 CBC, BMP 10/03/17 06:51 10/03/17 06:51 Current Medications Generic Name Dose Route Start Last Admin Trade Name Freq PRN Reason Stop Dose Admin Dexamethasone Sodium Phosphate 10 mg 10/03/17 18:00 Decadron Injection - IVPUSH Q8H-IV JD Ceftriaxone Sodium 1 gm/ 50 mls @ 100 mls/hr 10/04/17 10:00 Dextrose IVPB 10/05/17 09:59 DAILY JD Protocol Insulin Aspart 1 vial 10/03/17 16:30 Novolog Vial Sliding Scale - SQ ACHS JD Protocol Levetiracetam 500 mg 10/03/17 22:00 Keppra - PO BID JD Ondansetron HCl 4 mg 10/03/17 13:52 Zofran Injection IVPUSH Q6H PRN NAUSEA AND/OR VOMITING Progressive brain met disease , underlying breast ca On HEr2 based single agent. TDM-1 CTH reviewed -steroids -PPI/close Finger stick monitoring -CT c/a/p -to r/o other distant mets -will need to discuss with OP oncologist. -repeat UA/U cx--consider ID c/s
--- NOTE | 2017-10-03 17:42 | CONSULT ---
Consult - text type - Consultation Consultation Note: NEUROLOGY CONSULTATION is greatly appreciated: Events reviewed and discussed with ICU resident. Serial Neuroimages reviewed. This 57 yo RH woman with H/O DM has known metastatic infiltrating ductal breast CA. S/P right mastectomy. Right occipital metastasis treated with stereotactic RT and whole brain RT in 2014. Known to me from recent [facility] admission with worsening status and UTI. Unsure if persistent metastasis or Radiation necrosis and edema. Now admitted after 2 weeks of worsening headache and ataxia culminating in a fall this morning. CT of head (C-): (reviewed) Extensive right cerebral edema with obliteration of the right lateral ventricle and 3-4 cm right to left shift. WBC= 9.1K, Urinary WBC:173; TSH=9.99 mg% Started on Decadron IVPB 10 mg q 8 hrs. SONIA: Neck supple. No bruits. NEURO: Awake, alert, [facility]. Sl dysarthric speech. Follow most commands. Dense left homonomous hemianopsia Left hemineglect. Full EOM's. Left facial. Decreased gag Left drift. Moderate left hemiparesis (4/5). Left leg rests everted. Brisk reflexes (L>R). Left Babinski. Extinguishes double simultaneous sensory stim on the left. IMP: Moderately severe Left cerebral dysfunction. Mass +/- Vasculitis (post-RT). Worsened also by Toxic-metabolic encephalopathy (UTI). SUGGEST: Continue decadron. Gradually reduce to 4 mg q 6 hrs. Follow Glucose and please Rx for UTI to avoid urosepsis while on High-dose IV decadron. Continue Levetiracetam 500 mg PO or IV q 12 hrs. Please obtain a contrast study. If Pt. is allergic to Iodine- based contrast, please do MRI with Gadolinium. Ask Radiation oncology to re-see and advise. Repeat TSH. Check T4, T3, B12. Endocrine consult if indicated. Bedside PT. Thank you very much, Reese Freire MD
[2017-10-03] MEDS: DEXAMETHASONE SOD PHOSPHATE 4 MG/1 ML VIAL IVPUSH SCH (17:54)
[2017-10-03 19:28] LABS: ANION GAP 10 (8-16); BLOOD UREA NITROGEN 16 mg/dL (7-18); CALCIUM 9.1 mg/dL (8.5-10.1); CHLORIDE 99 mmol/L (98-107); CO2 26 mmol/L (21-32); CREATININE 0.9 mg/dL (0.55-1.02); POTASSIUM 3.8 mmol/L (3.5-5.1); SODIUM 135 mmol/L (136-145)
[2017-10-03 19:31] LABS: GLUCOSE,RANDOM 388 mg/dL (74-106)
[2017-10-03] MEDS: INSULIN SLIDING SCALE (NOVOLOG) 1 VIAL SQ SCH ×2 (19:43→21:34)
--- NOTE | 2017-10-03 19:44 | PN ---
Progress Note (short form) - Note Progress Note: Fingerstick reading was out of range Confirmatory BMP ordered. GLucose shows 388 w/o gap Decadron likely contributing to high sugars Given Novolog 8u as per SSI coverage. Eating well, so will order her home Levemir (20u AM before breakfast)
[2017-10-03] MEDS: levETIRAcetam 500 MG TABLET (FP) PO SCH (21:19)
[2017-10-03] MEDS ORDERED: INSULIN (NOVOLOG) ASPART 100 UNITS/ML 10ML VIAL ONE (21:23)
--- NOTE | 2017-10-03 21:28 | HP ---
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) Cardiovascular: Yes: HTN Heme/Onc: Yes: Cancer (breast cancer-invasive ductal poorly differenciated with necrosis 12/03) Endocrine: Yes: Diabetes Mellitus - Past Surgical History Past Surgical History: Yes: Breast Biopsy, - Smoking History Smoking history: Never smoked Have you smoked in the past 12 months: No Aproximately how many cigarettes per day: 0 - Alcohol/Substance Use Hx Alcohol Use: No History of Substance Use: reports: None - Social History ADL: Support Services 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 History of Recent Travel: No Home Medications - Allergies Allergies/Adverse Reactions: Allergies Allergy/AdvReac Type Severity Reaction Status Date / Time oxycodone HCl [From Percocet] Allergy Verified 10/03/17 05:48 - Home Medications Home Medications: Ambulatory Orders Acetaminophen [Tylenol .Regular Strength -] 650 mg PO Q6H #30 tablet 03/22/16 Ferrous Sulfate 325 mg PO BID 03/22/16 Omeprazole 20 mg PO DAILY 03/22/16 Capecitabine 1,000 mg PO BID 12/16/16 Lapatinib Ditosylate [Tykerb] 1,250 mg PO DAILY 12/16/16 Potassium Chloride [K-Dur -] 20 meq PO DAILY #30 tablet.er 12/25/16 levETIRAcetam [Keppra -] 500 mg PO BID tablet 12/25/16 Amoxicillin/Potassium Clav [Augmentin 875-125 Tablet] 1 each PO BID #12 tablet 05/21/17 Capecitabine [Xeloda -] 1,000 mg PO BID tablet 05/21/17 Lidocaine 5% Patch [Lidoderm Patch -] 1 patch TP DAILY #7 patch 06/23/17 Insulin (Levemir) [Levemir Vial] 20 units SQ AM 10/03/17 Family Disease History - Family Disease History Family Disease History: Other: Grandparent (asthma), Father ( of unknown cause), Mother (htn), Brother (3B healthy and living), Sister (4S healthy and living) Physical Examination Vital Signs: Vital Signs Temperature 98.5 F 10/03/17 14:00 Pulse Rate 82 10/03/17 18:00 Respiratory Rate 15 10/03/17 18:00 Blood Pressure 168/97 10/03/17 18:00 O2 Sat by Pulse Oximetry (%) 94 L 10/03/17 12:37 Labs: CBC, BMP 10/03/17 06:51 10/03/17 18:29
[2017-10-03] MEDS ORDERED: LOSARTAN POTASSIUM 50 MG TABLET (FP) PO ONE (22:27)
[2017-10-04] MEDS: DEXAMETHASONE SOD PHOSPHATE 4 MG/1 ML VIAL IVPUSH SCH ×3 (01:56→18:38)
[2017-10-04] MEDS ORDERED: INSULIN (LEVEMIR) 100 UNITS/ML UNITS SQ ONE (06:01)
[2017-10-04 06:06] LABS: HEMOGLOBIN 12.3 GM/dL (10.7-15.3); MCHC 32.2 g/dl (32.0-36.0); MEAN CELL VOLUME 74.3 fl (80-96); MEAN PLT VOLUME 8.8 fl (7.5-11.1); PLATELET COUNT 120 K/MM3 (134-434); RBC 5.12 M/mm3 (3.60-5.2); RDW 18.1 % (11.6-15.6); WHITE BLOOD COUNT 8.9 K/mm3 (4.0-10.0)
[2017-10-04] MEDS: INSULIN (LEVEMIR) 100 UNITS/ML UNITS SQ SCH (06:19)
[2017-10-04] MEDS: INSULIN SLIDING SCALE (NOVOLOG) 1 VIAL SQ SCH ×4 (06:19→22:25)
[2017-10-04 06:49] LABS: BLOOD UREA NITROGEN 17 mg/dL (7-18); CHLORIDE 101 mmol/L (98-107); POTASSIUM 3.9 mmol/L (3.5-5.1); SGOT/AST 50 U/L (15-37); SODIUM 138 mmol/L (136-145)
[2017-10-04 06:57] LABS: ALK PHOS 155 U/L (45-117); ANION GAP 10 (8-16); BILIRUBIN,TOTAL 0.2 mg/dL (0.2-1.0); CALCIUM 9.2 mg/dL (8.5-10.1); CO2 27 mmol/L (21-32); CREATININE 0.8 mg/dL (0.55-1.02); MAGNESIUM 2.1 mg/dL (1.8-2.4); PHOSPHOROUS 3.6 mg/dL (2.5-4.9); SGPT/ALT 56 U/L (12-78); TOT PROT 7.3 g/dl (6.4-8.2)
[2017-10-04 07:16] LABS: GLUCOSE,RANDOM 322 mg/dL (74-106)
[2017-10-04] MEDS ORDERED: PT OWN MED DRAWER 7, Y5N ONE ×2 (09:58→10:12)
[2017-10-04] MEDS ORDERED: cefTRIAXone SODIUM 1 GM VIAL ONE (09:59)
[2017-10-04] MEDS ORDERED: DEXTROSE 5%-WATER - 50 ML IVPB ONE (09:59)
[2017-10-04] MEDS ORDERED: CEFTRIAXONE 1 GM in DEXTROSE 5%-WATER - 50 ML IVPB SCH (10:00)
[2017-10-04] MEDS ORDERED: LOSARTAN POTASSIUM 50 MG TABLET (FP) PO SCH (10:00)
[2017-10-04] MEDS ORDERED: LOSARTAN 50MG/HCTZ 12.5MG 1 TAB (FP) PO SCH (10:00)
[2017-10-04] MEDS: levETIRAcetam 500 MG TABLET (FP) PO SCH ×2 (10:05→22:26)
--- NOTE | 2017-10-04 12:00 | CONSULT ---
Consult - text type - Consultation Consultation Note: NEUROSURGERY CONSULTATION Alejandra Maciel is a 57 year old female who has a history of Breast Cancer with brain metastasis who was treated with stereotactic resection and Radiation. She was doing reasonably well until approximately 2 weeks ago when she started to notice increasing headaches. On October 03, 2017, she fell and was brought to the [facility] ER where CT revealed significant Right hemisphere edema. IV contrast was not given due to an allergy concern. She improved with dehydration, Decadron and seizure prophylaxis and was admitted to the ICU. MRI Brain with and without contrast is pending. I briefly saw and examined the patient and will speak with her further regarding possible treatment options once the MRI is completed.
--- NOTE | 2017-10-04 12:16 | PN ---
Physical Exam: SUBJECTIVE: Patient seen and examined No acute events overnight. Pt complains of mild abdominal pain and b/l lower extremity pain. She denies headache, chest pain, SOB, cough, abdominal pain, n/v , and dysuria. OBJECTIVE: Vital Signs Period Temp Pulse Resp BP Sys/Agarwal Pulse Ox Last 24 Hr 98.2 F-98.6 F 58-82 13-20 142-170/86-102 94-95 GENERAL: middle aged female, lying in bed, in NAD HEENT: NC, AT HEART: RRR, no murmurs ABDOMEN: soft, NT, ND EXTREMITIES: no edema NEUROLOGICAL: AAOx3 PSYCH: Normal mood, normal affect. Laboratory Results - last 24 hr 10/03/17 10/03/17 10/03/17 13:24 18:29 21:28 WBC RBC Hgb Hct MCV MCH MCHC RDW Plt Count MPV Sodium 135 L Potassium 3.8 Chloride 99 Carbon Dioxide 26 Anion Gap 10 BUN 16 Creatinine 0.9 Creat Clearance w eGFR POC Glucometer [phone] > 400 Random Glucose 388 H* Calcium 9.1 Phosphorus Magnesium Total Bilirubin AST ALT Alkaline Phosphatase Total Protein Albumin Free T4 10/03/17 10/03/17 10/04/17 21:29 21:30 00:37 WBC RBC Hgb Hct MCV MCH MCHC RDW Plt Count MPV Sodium Potassium Chloride Carbon Dioxide Anion Gap BUN Creatinine Creat Clearance w eGFR POC Glucometer > 400 > [phone] Random Glucose Calcium Phosphorus Magnesium Total Bilirubin AST ALT Alkaline Phosphatase Total Protein Albumin Free T4 10/04/17 10/04/17 05:55 05:55 WBC 8.9 RBC 5.12 Hgb 12.3 Hct 38.0 MCV 74.3 L MCH 24.0 L MCHC 32.2 RDW 18.1 H Plt Count 120 L MPV 8.8 Sodium 138 Potassium 3.9 Chloride 101 Carbon Dioxide 27 Anion Gap 10 BUN 17 Creatinine 0.8 Creat Clearance w eGFR > 60 POC Glucometer Random Glucose 322 H* Calcium 9.2 Phosphorus 3.6 Magnesium 2.1 Total Bilirubin 0.2 AST 50 H ALT 56 Alkaline Phosphatase 155 H Total Protein 7.3 Albumin 3.0 L Free T4 0.81 Active Medications Generic Name Dose Route Start Last Admin Trade Name Freq PRN Reason Stop Dose Admin Dexamethasone Sodium Phosphate 10 mg 10/03/17 18:00 10/04/17 10:04 Decadron Injection - IVPUSH 10 mg Q8H-IV JD Administration HCTZ/Losartan Potassium 2 tab 10/04/17 10:00 10/04/17 10:04 Hyzaar - PO 2 tab DAILY JD Administration Ceftriaxone Sodium 1 gm/ 50 mls @ 100 mls/hr 10/04/17 10:00 10/04/17 10:04 Dextrose IVPB 10/05/17 09:59 100 mls/hr DAILY JD Administration Protocol Insulin Aspart 1 vial 10/03/17 16:30 10/04/17 10:10 Novolog Vial Sliding Scale - SQ 14 units ACHS JD Administration Protocol Insulin Detemir 20 units 10/04/17 07:00 10/04/17 06:19 Levemir Vial SQ 20 units AM JD Administration Levetiracetam 500 mg 10/03/17 22:00 10/04/17 10:05 Keppra - PO 500 mg BID JD Administration Ondansetron HCl 4 mg 10/03/17 13:52 Zofran Injection IVPUSH Q6H PRN NAUSEA AND/OR VOMITING ASSESSMENT/PLAN: 57F w/ hx of R breast cancer w/ brain mets, HTN, DM, and hx of vasogenic edema who presented with left arm and leg weakness and after fall. Neuro -Head CT: R sided vasogenic edema compared to prior MRI. 1.2cm shift with subfalcine herniation. -IV decadron 10mg q8h -Glucose control while on steroids -Keppra 500 bid -Zofran q6h -Neuro on board, recs appreciated: gradually reduce decadron to 4mg q6h. Obtain contrast study of head to further evaluate. f/u -Neuro Surgery consulted, recs appreciated. -Heme/onc consulted, recs appreciated. f/u CT C/A/P ID #Urosepsis -afebrile, no leukocytosis -continue ceftriaxone -f/u cultures Endocrine -f/u free t3, t4 -BGM -ISS and levemir 20U FEN/ppx -no IVF -electrolytes wnl -puree diet -no GI ppx -SCDs Dispo Pt stable for transfer to floors Case discussed with attending, Dr. De La Rosa. -Jamil Zaragoza MD PGY1 ICU Team Visit type - Emergency Visit Emergency Visit: Yes ED Registration Date: 10/03/17 Care time: The patient presented to the Emergency Department on the above date and was hospitalized for further evaluation of their emergent condition. - New Patient This patient is new to me today: Yes Date on this admission: 10/04/17 - Critical Care Critical Care patient: Yes Total Critical Care Time (in minutes): 37 Critical Care Statement: The care of this patient involved high complexity decision making to prevent further life threatening deterioration of the patient 's condition and/or to evaluate & treat vital organ system(s) failure or risk of failure.
--- NOTE | 2017-10-04 12:22 | PN ---
Teaching Attending Note Name of Resident: Jamil Zaragoza ATTENDING PHYSICIAN STATEMENT I saw and evaluated the patient. I reviewed the resident's note and discussed the case with the resident. I agree with the resident's findings and plan as documented. SUBJECTIVE: Pt seen and examined in the ICU. Mental status improving. LUE, LLE strength much improved. Denies headache, nausea or vomiting. OBJECTIVE: Last Vital Signs Temp Pulse Resp BP Pulse Ox 98.5 F 59 L 16 170/98 95 10/04/17 10:00 10/04/17 12:00 10/04/17 12:00 10/04/17 12:00 10/04/17 09:00 Intake & Output 10/01/17 10/02/17 10/03/17 10/04/17 23:59 23:59 23:59 23:59 Intake Total 360 520 Output Total 200 Balance 360 320 Weight 87.4 kg 87.18 kg Gen: NAD at rest Heart: RRR Lung: decreased breath sounds at the bases Abd: soft, nontender Ext: no edema CBC, BMP 10/04/17 05:55 10/04/17 05:55 Active Medications Dexamethasone Sodium Phosphate (Decadron Injection -) 10 mg IVPUSH Q8H-IV JD Last Admin: 10/04/17 10:04 Dose: 10 mg HCTZ/Losartan Potassium (Hyzaar -) 2 tab PO DAILY JD Last Admin: 10/04/17 10:04 Dose: 2 tab Ceftriaxone Sodium 1 gm/ (Dextrose) 50 mls @ 100 mls/hr IVPB DAILY JD PRN Reason: Protocol Stop: 10/05/17 09:59 Last Admin: 10/04/17 10:04 Dose: 100 mls/hr Insulin Aspart (Novolog Vial Sliding Scale -) 1 vial SQ ACHS JD PRN Reason: Protocol Last Admin: 10/04/17 10:10 Dose: 14 units Insulin Detemir (Levemir Vial) 20 units SQ AM [facility] Last Admin: 10/04/17 06:19 Dose: 20 units Levetiracetam (Keppra -) 500 mg PO BID [facility] Last Admin: 10/04/17 10:05 Dose: 500 mg Ondansetron HCl (Zofran Injection) 4 mg IVPUSH Q6H PRN PRN Reason: NAUSEA AND/OR VOMITING ASSESSMENT AND PLAN: 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
--- NOTE | 2017-10-04 16:15 | PN ---
Progress Note (short form) - Note Progress Note: ICU Evening Resident. Ordered Brain MRI w/ and w/o contrast as per neuro/neurosgy reccs Patient had informed me last night that she may be allergic to Iodine contrast. No prior IV contrast in system other than Gadolinium. Informed Dr Tovar yesterday, who said we can hold off on CT chest/abd/ pelvis w/ contrast for now until goals of care are discussed in detail.
--- NOTE | 2017-10-04 18:51 | PN ---
Progress Note (short form) - Note Progress Note: Pt seen and examined. events noted. O/E general: NCAT AOx3 CTA(BL) S1S2 wnl Soft abdomen Weak LLE Last Vital Signs Temp Pulse Resp BP Pulse Ox 98.5 F 68 19 153/97 94 L 10/03/17 14:00 10/03/17 14:00 10/03/17 14:00 10/03/17 14:00 10/03/17 12:37 CBC, BMP 10/03/17 06:51 10/03/17 06:51 Current Medications Generic Name Dose Route Start Last Admin Trade Name Freq PRN Reason Stop Dose Admin Dexamethasone Sodium Phosphate 10 mg 10/03/17 18:00 Decadron Injection - IVPUSH Q8H-IV JD Ceftriaxone Sodium 1 gm/ 50 mls @ 100 mls/hr 10/04/17 10:00 Dextrose IVPB 10/05/17 09:59 DAILY JD Protocol Insulin Aspart 1 vial 10/03/17 16:30 Novolog Vial Sliding Scale - SQ ACHS JD Protocol Levetiracetam 500 mg 10/03/17 22:00 Keppra - PO BID JD Ondansetron HCl 4 mg 10/03/17 13:52 Zofran Injection IVPUSH Q6H PRN NAUSEA AND/OR VOMITING Progressive brain met disease , underlying breast ca On HEr2 based single agent. TDM-1 CTH reviewed--MRI pending. Last admission, question of POD vs RT necrosis was noted. Pt Improved today, so ?reduction in steroids played a role for worsening, along with UTI. But pts symptoms of the left marshall-paresis is relatively new--?pod -steroids, will c/w present dose -PPI/close Finger stick monitoring -Neuro c.s noted. -consider endocrine c/s for DM control and also TSH of 9.9, while T3/T4 are awaited.
[2017-10-04] MEDS ORDERED: INSULIN (NOVOLOG) ASPART 100 UNITS/ML 10ML VIAL ONE (22:24)
--- NOTE | 2017-10-05 00:39 | PN ---
Progress Note, Physician History of Present Illness: Pt seen on 10/04/17 however note is being entered late - Current Medication List Current Medications: Active Medications Dexamethasone Sodium Phosphate (Decadron Injection -) 10 mg IVPUSH Q8H-IV JD Last Admin: 10/04/17 18:38 Dose: 10 mg HCTZ/Losartan Potassium (Hyzaar -) 2 tab PO DAILY [facility] Last Admin: 10/04/17 10:04 Dose: 2 tab Ceftriaxone Sodium 1 gm/ (Dextrose) 50 mls @ 100 mls/hr IVPB DAILY JD PRN Reason: Protocol Stop: 10/05/17 09:59 Last Admin: 10/04/17 10:04 Dose: 100 mls/hr Insulin Aspart (Novolog Vial Sliding Scale -) 1 vial SQ ACHS JD PRN Reason: Protocol Last Admin: 10/04/17 22:25 Dose: 8 units Insulin Detemir (Levemir Vial) 20 units SQ AM [facility] Last Admin: 10/04/17 06:19 Dose: 20 units Levetiracetam (Keppra -) 500 mg PO BID [facility] Last Admin: 10/04/17 22:26 Dose: 500 mg Ondansetron HCl (Zofran Injection) 4 mg IVPUSH Q6H PRN PRN Reason: NAUSEA AND/OR VOMITING Last Admin: 10/04/17 20:27 Dose: 4 mg - Objective Vital Signs: Vital Signs Temperature 97.7 F 10/04/17 22:00 Pulse Rate 59 L 10/04/17 22:00 Respiratory Rate 18 10/04/17 22:00 Blood Pressure 166/100 10/04/17 22:00 O2 Sat by Pulse Oximetry (%) 95 10/04/17 09:00 Cardiovascular: Yes: WNL, Regular Rate and Rhythm Respiratory: Yes: WNL, Regular, CTA Bilaterally Gastrointestinal: Yes: WNL, Normal Bowel Sounds, Soft Neurological: Yes: WNL, Alert, Oriented Labs: CBC, BMP 10/04/17 05:55 10/04/17 05:55 Problem List - Problems (1) Cerebral edema Assessment/Plan: Breast cancer w/ mets to brain Pt presented w/ worsening edema and subfalcine herniation on ct scan MRI brain pending Cont IV decadron as taper as indicated Cont keppra empirically as antiepileptic Cont emprirical antibx IV ceftriaxone Code(s): G93.6 - CEREBRAL EDEMA (2) Breast CA Code(s): C50.919 - MALIGNANT NEOPLASM OF UNSP SITE OF UNSPECIFIED FEMALE BREAST Qualifiers: Breast location: overlapping sites of breast Laterality: right (3) Headache Assessment/Plan: Due to cerebral edema Code(s): R51 - HEADACHE (4) Hypertension Assessment/Plan: Cont losartan hctz BP stable Code(s): I10 - ESSENTIAL (PRIMARY) HYPERTENSION
[2017-10-05] MEDS: DEXAMETHASONE SOD PHOSPHATE 4 MG/1 ML VIAL IVPUSH SCH ×3 (02:32→18:33)
[2017-10-05] MEDS: INSULIN SLIDING SCALE (NOVOLOG) 1 VIAL SQ SCH ×4 (06:45→22:46)
[2017-10-05] MEDS: INSULIN (LEVEMIR) 100 UNITS/ML UNITS SQ SCH (06:45)
[2017-10-05 08:17] LABS: BASO % 0.9 % (0-2.0); EOS % 0.3 % (0-4.5); HEMATOCRIT 36.7 % (32.4-45.2); HEMOGLOBIN 11.8 GM/dL (10.7-15.3); LYMPH % 9.6 % (8-40); MCH 23.9 pg (25.7-33.7); MCHC 32.2 g/dl (32.0-36.0); MEAN CELL VOLUME 74.2 fl (80-96); MEAN PLT VOLUME 9.1 fl (7.5-11.1); MONO % 2.4 % (3.8-10.2); NEUT % 86.8 % (42.8-82.8); PLATELET COUNT 111 K/MM3 (134-434); RBC 4.94 M/mm3 (3.60-5.2); WHITE BLOOD COUNT 9.1 K/mm3 (4.0-10.0)
[2017-10-05 08:49] LABS: ALBUMIN 2.8 g/dl (3.4-5.0); ALK PHOS 139 U/L (45-117); ANION GAP 9 (8-16); BILIRUBIN,TOTAL 0.3 mg/dL (0.2-1.0); BLOOD UREA NITROGEN 16 mg/dL (7-18); CALCIUM 9.2 mg/dL (8.5-10.1); CHLORIDE 100 mmol/L (98-107); CO2 27 mmol/L (21-32); CREATININE 0.8 mg/dL (0.55-1.02); MAGNESIUM 1.9 mg/dL (1.8-2.4); POTASSIUM 3.3 mmol/L (3.5-5.1); SGOT/AST 39 U/L (15-37); SGPT/ALT 54 U/L (12-78); SODIUM 136 mmol/L (136-145)
[2017-10-05 09:22] LABS: GLUCOSE,RANDOM 321 mg/dL (74-106)
[2017-10-05] MEDS ORDERED: cefTRIAXone SODIUM 1 GM VIAL ONE (09:57)
[2017-10-05] MEDS ORDERED: DEXTROSE 5%-WATER - 50 ML IVPB ONE (09:58)
[2017-10-05] MEDS: levETIRAcetam 500 MG TABLET (FP) PO SCH ×2 (10:33→22:29)
[2017-10-05] MEDS: CEFTRIAXONE 1 GM in DEXTROSE 5%-WATER - 50 ML IVPB SCH (10:40)
[2017-10-05] MEDS ORDERED: PT OWN MED DRAWER 7, Y5N ONE (10:52)
[2017-10-05] MEDS: LOSARTAN 50MG/HCTZ 12.5MG 1 TAB (FP) PO SCH (10:53)
--- NOTE | 2017-10-05 11:56 | PN ---
Progress Note (short form) - Note Progress Note: Resting in NAD. Mental status improving. No CP or SOB. Intake & Output 10/02/17 10/03/17 10/04/17 10/05/17 23:59 23:59 23:59 23:59 Intake Total 360 520 Output Total 200 Balance 360 320 Weight 192 lb 10.944 oz 192 lb 3.2 oz 183 lb Last Vital Signs Temp Pulse Resp BP Pulse Ox 98 F 59 L 20 159/88 95 10/05/17 06:00 10/05/17 06:00 10/05/17 06:00 10/05/17 06:00 10/04/17 21:00 Active Medications Dexamethasone Sodium Phosphate (Decadron Injection -) 10 mg IVPUSH Q8H-IV JD Last Admin: 10/05/17 10:33 Dose: 10 mg HCTZ/Losartan Potassium (Hyzaar -) 2 tab PO DAILY JD Last Admin: 10/05/17 10:53 Dose: 2 tab Ceftriaxone Sodium 1 gm/ (Dextrose) 50 mls @ 100 mls/hr IVPB DAILY JD PRN Reason: Protocol Last Admin: 10/05/17 10:40 Dose: 100 mls/hr Insulin Aspart (Novolog Vial Sliding Scale -) 1 vial SQ ACHS JD PRN Reason: Protocol Last Admin: 10/05/17 11:43 Dose: 8 units Insulin Detemir (Levemir Vial) 20 units SQ AM JD Levetiracetam (Keppra -) 500 mg PO BID JD Last Admin: 10/05/17 10:33 Dose: 500 mg Ondansetron HCl (Zofran Injection) 4 mg IVPUSH Q6H PRN PRN Reason: NAUSEA AND/OR VOMITING Gen: NAD at rest Heart: RRR Lung: decreased breath sounds at the bases Abd: soft, nontender Ext: no edema Neuro: LLE weakness Laboratory Results - last 24 hr 10/04/17 10/04/17 10/04/17 05:55 17:43 22:19 WBC RBC Hgb Hct MCV MCH MCHC RDW Plt Count MPV Neutrophils % Lymphocytes % Monocytes % Eosinophils % Basophils % Sodium Potassium Chloride Carbon Dioxide Anion Gap BUN Creatinine Creat Clearance w eGFR POC Glucometer 362 378 Random Glucose Calcium Phosphorus Magnesium Total Bilirubin AST ALT Alkaline Phosphatase Total Protein Albumin Free T3 1.8 L 10/05/17 10/05/1718 02:40 06:40 07:35 WBC 9.1 RBC 4.94 Hgb 11.8 Hct 36.7 MCV 74.2 L MCH 23.9 L MCHC 32.2 RDW 18.0 H Plt Count 111 L MPV 9.1 Neutrophils % 86.8 H D Lymphocytes % 9.6 D Monocytes % 2.4 L Eosinophils % 0.3 Basophils % 0.9 Sodium Potassium Chloride Carbon Dioxide Anion Gap BUN Creatinine Creat Clearance w eGFR POC Glucometer 320 365 Random Glucose Calcium Phosphorus Magnesium Total Bilirubin AST ALT Alkaline Phosphatase Total Protein Albumin Free T3 10/05/17 10/05/17 07:35 11:28 WBC RBC Hgb Hct MCV MCH MCHC RDW Plt Count MPV Neutrophils % Lymphocytes % Monocytes % Eosinophils % Basophils % Sodium 136 Potassium 3.3 L Chloride 100 Carbon Dioxide 27 Anion Gap 9 BUN 16 Creatinine 0.8 Creat Clearance w eGFR > 60 POC Glucometer 362 Random Glucose 321 H* Calcium 9.2 Phosphorus 4.0 Magnesium 1.9 Total Bilirubin 0.3 D AST 39 H ALT 54 Alkaline Phosphatase 139 H Total Protein 7.0 Albumin 2.8 L Free T3 ASSESSMENT AND PLAN: Metastatic Breast Ca to Brain s/p resection of brain met Cerebral Vasogenic Edema with evidence of herniation Brain Mets DM - Decadron - AEDs - Antiemetics - Neuro checks - Glucose control while on systemic steroids - aspiration precautions - DVT prophylaxis Dr Coates
--- NOTE | 2017-10-05 14:57 | CON.ID ---
Consult Consult Specialty:: infectious diseases Referred by:: Reason for Consultation:: ams uti - History of Present Illness Chief Complaint: headaches,uti History of Present Illness: 57 year old female who has a history of Breast Cancer with brain metastasis who was treated with stereotactic resection and Radiation. Patient was doing well till 2 weeks back S when she started to notice increasing headaches. 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) Cardio/Vascular: Yes: HTN Endocrine: Yes: Diabetes Mellitus - Past Surgical History Past Surgical History: Yes: Breast Biopsy, - Alcohol/Substance Use Hx Alcohol Use: No History of Substance Use: reports: None - Smoking History Smoking history: Never smoked Have you smoked in the past 12 months: No Aproximately how many cigarettes per day: 0 - Social History Usual Living Arrangement: With Spouse ADL: Support Services 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 History of Recent Travel: No Home Medications - Allergies Allergies/Adverse Reactions: Allergies Allergy/AdvReac Type Severity Reaction Status Date / Time oxycodone HCl [From Percocet] Allergy Verified 10/03/17 05:48 - Home Medications Home Medications: Ambulatory Orders Ferrous Sulfate 325 mg PO BID 03/22/16 Omeprazole 40 mg PO DAILY 03/22/16 Capecitabine 1,000 mg PO BID 12/16/16 Lapatinib Ditosylate [Tykerb] 1,250 mg PO DAILY 12/16/16 levETIRAcetam [Keppra -] 500 mg PO BID tablet 12/25/16 Lidocaine 5% Patch [Lidoderm Patch -] 1 patch TP DAILY #7 patch 06/23/17 Dexamethasone 4 mg PO DAILY 10/03/17 Insulin (Levemir) [Levemir Vial] 20 units SQ AM 10/03/17 Losartan/Hydrochlorothiazide [Losartan-Hctz 100-25 mg Tab] 1 each PO DAILY 10/03 Family Disease History - Family Disease History Family Disease History: Other: Grandparent (asthma), Father ( of unknown cause), Mother (htn), Brother (3B healthy and living), Sister (4S healthy and living) Review of Systems Unable to obtain ROS, reason: unable Physical Exam Vital Signs: Vital Signs Temperature 98.1 F 10/05/17 13:29 Pulse Rate 67 10/05/17 13:29 Respiratory Rate 18 10/05/17 13:29 Blood Pressure 182/99 10/05/17 13:29 O2 Sat by Pulse Oximetry (%) 97 10/05/17 09:00 Constitutional: Yes: No Distress, Calm Eyes: Yes: Conjunctiva Clear HENT: Yes: Atraumatic, Normocephalic Neck: Yes: Supple, Trachea Midline Cardiovascular: Yes: Regular Rate and Rhythm Respiratory: Yes: Regular, CTA Bilaterally Gastrointestinal: Yes: Normal Bowel Sounds, Soft Musculoskeletal: Yes: WNL Extremities: Yes: WNL Neurological: Yes: Alert, Other Psychiatric: Yes: Alert, Other Labs: CBC, BMP 10/05/17 07:35 10/05/17 07:35 Imaging - Results Chest X-ray: Report Reviewed, Image Reviewed Cat Scan: Report Reviewed, Image Reviewed MRI: Report Reviewed, Image Reviewed Assessment/Plan Problem List - Problems (1) Cerebral edema Code(s): G93.6 - CEREBRAL EDEMA (2) Breast CA Code(s): C50.919 - MALIGNANT NEOPLASM OF UNSP SITE OF UNSPECIFIED FEMALE BREAST Qualifiers: Breast location: overlapping sites of breast Laterality: right (3) Headache Code(s): R51 - HEADACHE (4) Hypertension Code(s): I10 - ESSENTIAL (PRIMARY) HYPERTENSION 5 uti patients condition along with her brain findings could have been aggravated by uti i completely concur with patient being on abx plan continue current mgmt continue abx will need abx for some time close watch on mental status rest as per the team
--- NOTE | 2017-10-05 18:02 | PN ---
Progress Note (short form) - Note Progress Note: Imaging reviewed. Patient is Neurologically improved and would likely benefit from continued medical management of brain edema and UTI. Although there is some Right occipital enhancing tissue, the risks of surgical decompression would appear to outweigh benefits. Will follow with primary team and evaluate her response to medical treatment.
--- NOTE | 2017-10-05 20:08 | PN ---
Progress Note (short form) - Note Progress Note: NEUROLOGICAL FOLLOW-UP: Events and MRI images reviewed. Patient examined. On ceftriaxone for UTI. On Decadron 10 mg q 8 hrs for edema. MRI of brain (C-): shows a heterogeneous (necrotic) right occipital lesion but also a homogeneous, oval shaped mass (2 x 4 CM) in the right Parietal white matter. Still with massive edema involving the entire hemisphere, but perhaps slightly less R>L shift than the initial CT. Curiously, an earlier MRI (perhaps prior to extensive treatment) showed the right occipital mass with a small satellite bleb in the direction of the parietal lobe. EXAM: More alert, responsive. Fluent but confused. Dense left homononous hemianopsia. Mild left facial. Moving left arm and leg much better including spontaneous gesturing and antigravity strength. Brisk reflexes on left. Plantar silent. Feels touch all 4's (DSS not done) IMP: Improving right cerebral dysfunction. Necrotic right occipital but ACTIVE right parietal mass. SUGGEST: Continue antibiotics. Decrease decadron to 8 mg q 8 hrs x 2 days then 6 g q 8 hrs ( then switch to PO). Follow glucose closely. Mobilize OO Bed to chair. Pressure stockings vs DVT. Bedside/chair PT Thank you very much, Reese Freire MD
[2017-10-05] MEDS ORDERED: CHLORHEXIDINE GLUCONATE 4% CLEANSER FOR DECOLONIZATION TP SCH (22:00)
--- NOTE | 2017-10-05 22:25 | PN ---
Progress Note, Physician History of Present Illness: Pt more alert but still w/ lt sided weakness - Current Medication List Current Medications: Active Medications Dexamethasone Sodium Phosphate (Decadron Injection -) 8 mg IVPUSH Q8H-IV JD HCTZ/Losartan Potassium (Hyzaar -) 2 tab PO DAILY [facility] Last Admin: 10/05/17 10:53 Dose: 2 tab Ceftriaxone Sodium 1 gm/ (Dextrose) 50 mls @ 100 mls/hr IVPB DAILY JD PRN Reason: Protocol Last Admin: 10/05/17 10:40 Dose: 100 mls/hr Insulin Aspart (Novolog Vial Sliding Scale -) 1 vial SQ ACHS JD PRN Reason: Protocol Last Admin: 10/05/17 17:43 Dose: 6 units Insulin Detemir (Levemir Vial) 20 units SQ AM JD Levetiracetam (Keppra -) 500 mg PO BID [facility] Last Admin: 10/05/17 10:33 Dose: 500 mg Ondansetron HCl (Zofran Injection) 4 mg IVPUSH Q6H PRN PRN Reason: NAUSEA AND/OR VOMITING - Objective Vital Signs: Vital Signs Temperature 98.6 F 10/05/17 18:00 Pulse Rate 68 10/05/17 18:00 Respiratory Rate 18 10/05/17 18:00 Blood Pressure 167/95 10/05/17 18:00 O2 Sat by Pulse Oximetry (%) 97 10/05/17 09:00 Cardiovascular: Yes: WNL, Regular Rate and Rhythm Respiratory: Yes: WNL, Regular, CTA Bilaterally Gastrointestinal: Yes: WNL, Normal Bowel Sounds, Soft Labs: CBC, BMP 10/05/17 07:35 10/05/17 07:35 Problem List - Problems (1) Cerebral edema Assessment/Plan: Breast cancer w/ mets to brain Pt presented w/ worsening edema and subfalcine herniation on ct scan MRI brain showed necrotic rt occipital lesion/rt parietal mass/edema Cont IV decadron as taper as indicated Cont keppra empirically as antiepileptic Sliding scal w/ insulin for glucose control while on steroids Code(s): G93.6 - CEREBRAL EDEMA (2) UTI (urinary tract infection) Assessment/Plan: Due to klebsiella Cont IV ceftriaxone Code(s): N39.0 - URINARY TRACT INFECTION, SITE NOT SPECIFIED (3) Breast CA Assessment/Plan: Metastatic cancer to brain Code(s): C50.919 - MALIGNANT NEOPLASM OF UNSP SITE OF UNSPECIFIED FEMALE BREAST Qualifiers: Breast location: overlapping sites of breast Laterality: right (4) Headache Assessment/Plan: Due to cerebral edema Improved Code(s): R51 - HEADACHE (5) Hypertension Assessment/Plan: Cont losartan hctz BP stable Code(s): I10 - ESSENTIAL (PRIMARY) HYPERTENSION (6) Hypothyroidism Code(s): E03.9 - HYPOTHYROIDISM, UNSPECIFIED
[2017-10-05] MEDS: ONDANSETRON 4 MG/2 ML VIAL IVPUSH PRN (22:29)
[2017-10-05] MEDS ORDERED: POTASSIUM CHLORIDE TABS 20 MEQ TABLET.ER (FP) PO ONE (23:00)
--- NOTE | 2017-10-06 01:24 | CONSULT ---
Consult Consult Specialty:: endocrine Referred by:: dr.rocco veronica Reason for Consultation:: diabetes mellitus - History of Present Illness Chief Complaint: high sugars History of Present Illness: 57 yo RH woman with H/O DM has known metastatic infiltrating ductal breast CA. 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) Cardio/Vascular: Yes: HTN Endocrine: Yes: Diabetes Mellitus - Past Surgical History Past Surgical History: Yes: Breast Biopsy, - Alcohol/Substance Use Hx Alcohol Use: No History of Substance Use: reports: None - Smoking History Smoking history: Never smoked Have you smoked in the past 12 months: No Aproximately how many cigarettes per day: 0 - Social History Usual Living Arrangement: With Spouse ADL: Support Services 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 History of Recent Travel: No Home Medications - Allergies Allergies/Adverse Reactions: Allergies Allergy/AdvReac Type Severity Reaction Status Date / Time oxycodone HCl [From Percocet] Allergy Verified 10/03/17 05:48 - Home Medications Home Medications: Ambulatory Orders Ferrous Sulfate 325 mg PO BID 03/22/16 Omeprazole 40 mg PO DAILY 03/22/16 Capecitabine 1,000 mg PO BID 12/16/16 Lapatinib Ditosylate [Tykerb] 1,250 mg PO DAILY 12/16/16 levETIRAcetam [Keppra -] 500 mg PO BID tablet 12/25/16 Lidocaine 5% Patch [Lidoderm Patch -] 1 patch TP DAILY #7 patch 06/23/17 Dexamethasone 4 mg PO DAILY 10/03/17 Insulin (Levemir) [Levemir Vial] 20 units SQ AM 10/03/17 Losartan/Hydrochlorothiazide [Losartan-Hctz 100-25 mg Tab] 1 each PO DAILY 10/03 Family Disease History - Family Disease History Family Disease History: Other: Grandparent (asthma), Father ( of unknown cause), Mother (htn), Brother (3B healthy and living), Sister (4S healthy and living) Review of Systems - Review of Systems Constitutional: reports: Lethargy, Weakness Eyes: reports: Blurred Vision HENT: reports: Difficult Swallowing, Hearing Loss, Throat Pain Neck: reports: No Symptoms Cardiovascular: reports: Shortness of Breath Respiratory: reports: Exercise Intolerance, SOB on Exertion Gastrointestinal: reports: Bloating Genitourinary: reports: Frequency, Urgency Breasts: reports: Other Musculoskeletal: reports: Muscle Pain, Muscle Cramps, Muscle Weakness Neurological: reports: Weakness Endocrine: reports: Unexplained Weight Loss Physical Exam Vital Signs: Vital Signs Temperature 98.6 F 10/05/17 21:00 Pulse Rate 57 L 10/05/17 21:00 Respiratory Rate 18 10/05/17 21:00 Blood Pressure 172/100 10/05/17 21:00 O2 Sat by Pulse Oximetry (%) 97 10/05/17 09:00 Constitutional: Yes: Anxious Eyes: Yes: EOM Intact HENT: Yes: Normocephalic Neck: Yes: Trachea Midline, Thyromegaly Cardiovascular: Yes: Regular Rate and Rhythm Respiratory: Yes: CTA Bilaterally Gastrointestinal: Yes: Abdomen, Obese ...Rectal Exam: Yes: Deferred Breast(s): Yes: Skin Changes Musculoskeletal: Yes: Joint Swelling, Muscle Weakness Neurological: Yes: Alert, Oriented, Dysarthria, Numbness, Unsteady Gait, Weakness Labs: CBC, BMP 10/05/17 07:35 10/05/17 07:35 Problem List - Problems (1) Hypothyroidism Code(s): E03.9 - HYPOTHYROIDISM, UNSPECIFIED (2) Vasogenic cerebral edema Code(s): G93.6 - CEREBRAL EDEMA (3) Back pain Code(s): M54.9 - DORSALGIA, UNSPECIFIED Qualifiers: Back pain location: back pain in other location Chronicity: chronic Qualified Code(s): M54.9 - Dorsalgia, unspecified; G89.29 - Other chronic pain; G89.29 - Other chronic pain (4) Breast CA Code(s): C50.919 - MALIGNANT NEOPLASM OF UNSP SITE OF UNSPECIFIED FEMALE BREAST Qualifiers: Breast location: overlapping sites of breast Laterality: right (5) Cerebral edema Code(s): G93.6 - CEREBRAL EDEMA Assessment/Plan Current Active Problems Hypothyroidism (Acute) Vasogenic cerebral edema (Acute) diabetes mellitus hyperglycmia htn cva brain mets breast cancer met Abnormal Lab Results 10/04/17 10/05/17 10/05/17 05:55 07:35 07:35 MCV 74.2 L MCH 23.9 L RDW 18.0 H Plt Count 111 L Neutrophils % 86.8 H D Monocytes % 2.4 L Potassium 3.3 L Random Glucose 321 H* AST 39 H Alkaline Phosphatase 139 H Albumin 2.8 L Free T3 1.8 L Laboratory Results - last 24 hr 10/04/17 10/04/17 10/04/17 05:55 06:12 10:07 WBC RBC Hgb Hct MCV MCH MCHC RDW Plt Count MPV Neutrophils % Lymphocytes % Monocytes % Eosinophils % Basophils % Sodium Potassium Chloride Carbon Dioxide Anion Gap BUN Creatinine Creat Clearance w eGFR POC Glucometer [phone] > 400 Random Glucose Calcium Phosphorus Magnesium Total Bilirubin AST ALT Alkaline Phosphatase Total Protein Albumin Free T3 1.8 L 10/04/17 10/05/17 10/05/17 13:10 02:40 06:40 WBC RBC Hgb Hct MCV MCH MCHC RDW Plt Count MPV Neutrophils % Lymphocytes % Monocytes % Eosinophils % Basophils % Sodium Potassium Chloride Carbon Dioxide Anion Gap BUN Creatinine Creat Clearance w eGFR POC Glucometer [phone] 365 Random Glucose Calcium Phosphorus Magnesium Total Bilirubin AST ALT Alkaline Phosphatase Total Protein Albumin Free T3 10/05/17 10/05/17 10/05/17 07:35 07:35 11:28 WBC 9.1 RBC 4.94 Hgb 11.8 Hct 36.7 MCV 74.2 L MCH 23.9 L MCHC 32.2 RDW 18.0 H Plt Count 111 L MPV 9.1 Neutrophils % 86.8 H D Lymphocytes % 9.6 D Monocytes % 2.4 L Eosinophils % 0.3 Basophils % 0.9 Sodium 136 Potassium 3.3 L Chloride 100 Carbon Dioxide 27 Anion Gap 9 BUN 16 Creatinine 0.8 Creat Clearance w eGFR > 60 POC Glucometer 362 Random Glucose 321 H* Calcium 9.2 Phosphorus 4.0 Magnesium 1.9 Total Bilirubin 0.3 D AST 39 H ALT 54 Alkaline Phosphatase 139 H Total Protein 7.0 Albumin 2.8 L Free T3 10/05/17 10/05/17 17:12 22:45 WBC RBC Hgb Hct MCV MCH MCHC RDW Plt Count MPV Neutrophils % Lymphocytes % Monocytes % Eosinophils % Basophils % Sodium Potassium Chloride Carbon Dioxide Anion Gap BUN Creatinine Creat Clearance w eGFR POC Glucometer 326 383 Random Glucose Calcium Phosphorus Magnesium Total Bilirubin AST ALT Alkaline Phosphatase Total Protein Albumin Free T3 plan: levemir 27 units am novolog insulin scale ordered synthroid 50mcg daily ck hba1c
[2017-10-06] MEDS ORDERED: DEXAMETHASONE SOD PHOSPHATE 4 MG/1 ML VIAL IVPUSH SCH (02:00)
[2017-10-06] MEDS: DEXAMETHASONE SOD PHOSPHATE 4 MG/1 ML VIAL IVPUSH SCH ×3 (02:47→18:10)
[2017-10-06] MEDS: INSULIN (LEVEMIR) 100 UNITS/ML UNITS SQ SCH (06:47)
[2017-10-06] MEDS: INSULIN SLIDING SCALE (NOVOLOG) 1 VIAL SQ SCH ×4 (06:47→22:20)
[2017-10-06] MEDS: LEVOTHYROXINE NA 25 MCG TABLET (FP) PO SCH (06:48)
[2017-10-06] MEDS ORDERED: LEVOTHYROXINE NA 50 MCG TABLET (FP) PO SCH (07:00)
[2017-10-06] MEDS ORDERED: INSULIN (LEVEMIR) 100 UNITS/ML UNITS SQ SCH (07:00)
[2017-10-06 08:41] LABS: BASO % 0.2 % (0-2.0); HEMOGLOBIN 12.5 GM/dL (10.7-15.3); MCH 23.8 pg (25.7-33.7); MCHC 32.1 g/dl (32.0-36.0); MEAN CELL VOLUME 74.2 fl (80-96); MEAN PLT VOLUME 9.6 fl (7.5-11.1); MONO % 3.2 % (3.8-10.2); NEUT % 85.6 % (42.8-82.8); PLATELET COUNT 116 K/MM3 (134-434); RBC 5.26 M/mm3 (3.60-5.2); WHITE BLOOD COUNT 9.7 K/mm3 (4.0-10.0)
[2017-10-06 08:57] LABS: ANION GAP 10 (8-16); CALCIUM 9.2 mg/dL (8.5-10.1); CHLORIDE 99 mmol/L (98-107); CO2 28 mmol/L (21-32); POTASSIUM 3.4 mmol/L (3.5-5.1); SODIUM 137 mmol/L (136-145)
[2017-10-06] MEDS ORDERED: PT OWN MED DRAWER 7, Y5N ONE (08:57)
[2017-10-06] MEDS: levETIRAcetam 500 MG TABLET (FP) PO SCH ×2 (08:59→22:20)
[2017-10-06] MEDS: LOSARTAN 50MG/HCTZ 12.5MG 1 TAB (FP) PO SCH (08:59)
[2017-10-06 09:06] LABS: ALK PHOS 143 U/L (45-117); BILIRUBIN,TOTAL 0.8 mg/dL (0.2-1.0); BLOOD UREA NITROGEN 18 mg/dL (7-18); CREATININE 0.8 mg/dL (0.55-1.02); SGOT/AST 47 U/L (15-37); SGPT/ALT 68 U/L (12-78); TOT PROT 7.3 g/dl (6.4-8.2)
[2017-10-06] MEDS ORDERED: DEXTROSE 5%-WATER - 50 ML IVPB ONE (09:12)
[2017-10-06] MEDS ORDERED: cefTRIAXone SODIUM 1 GM VIAL ONE (09:12)
[2017-10-06 09:20] LABS: GLUCOSE,RANDOM 323 mg/dL (74-106)
[2017-10-06] MEDS: CEFTRIAXONE 1 GM in DEXTROSE 5%-WATER - 50 ML IVPB SCH (10:07)
--- NOTE | 2017-10-06 11:28 | PN ---
Progress Note (short form) - Note Progress Note: PULMONARY AWAKE/CONVERSING APPROPRIATELY FAMILY PRESENT Gen: NAD at rest Heart: RRR Lung: decreased breath sounds at the bases Abd: soft, nontender Ext: no edema Neuro: LLE weakness chart reviewed/labs/meds/notes reviewed ASSESSMENT AND PLAN: Metastatic Breast Ca to Brain s/p resection of brain met Cerebral Vasogenic Edema with evidence of herniation Brain Mets DM - Decadron - AEDs - Antiemetics - Neuro checks - Glucose control while on systemic steroids - aspiration precautions - DVT prophylaxis Donya YE MD
--- NOTE | 2017-10-06 13:09 | PN ---
Progress Note, Physician History of Present Illness: feeling much better lle weakness family in the room - Current Medication List Current Medications: Active Medications Dexamethasone Sodium Phosphate (Decadron Injection -) 8 mg IVPUSH Q8H-IV [facility] Last Admin: 10/06/17 08:59 Dose: 8 mg HCTZ/Losartan Potassium (Hyzaar -) 2 tab PO DAILY [facility] Last Admin: 10/06/17 08:59 Dose: 2 tab Ceftriaxone Sodium 1 gm/ (Dextrose) 50 mls @ 100 mls/hr IVPB DAILY JD PRN Reason: Protocol Last Admin: 10/06/17 10:07 Dose: 100 mls/hr Insulin Aspart (Novolog Vial Sliding Scale -) 1 vial SQ ACHS JD PRN Reason: Protocol Last Admin: 10/06/17 11:28 Dose: 8 units Insulin Detemir (Levemir Vial) 27 units SQ AM [facility] Last Admin: 10/06/17 06:47 Dose: 27 units Levetiracetam (Keppra -) 500 mg PO BID [facility] Last Admin: 10/06/17 08:59 Dose: 500 mg Levothyroxine Sodium (Synthroid -) 25 mcg PO DAILY@0700 [facility] Last Admin: 10/06/17 06:48 Dose: 25 mcg Ondansetron HCl (Zofran Injection) 4 mg IVPUSH Q6H PRN PRN Reason: NAUSEA AND/OR VOMITING Last Admin: 10/05/17 22:29 Dose: 4 mg - Objective Vital Signs: Vital Signs Temperature 97.5 F L 10/06/17 10:00 Pulse Rate 70 10/06/17 12:39 Respiratory Rate 18 10/06/17 12:39 Blood Pressure 150/99 10/06/17 12:39 O2 Sat by Pulse Oximetry (%) 97 10/05/17 21:00 Constitutional: Yes: No Distress, Calm Cardiovascular: Yes: Regular Rate and Rhythm Respiratory: Yes: Regular, CTA Bilaterally Gastrointestinal: Yes: Normal Bowel Sounds, Soft Musculoskeletal: Yes: WNL Neurological: Yes: Alert, Oriented Psychiatric: Yes: Alert, Oriented Labs: CBC, BMP 10/06/17 07:53 10/06/17 07:53 Assessment/Plan Problem List - Problems (1) Cerebral edema Code(s): G93.6 - CEREBRAL EDEMA (2) Breast CA Code(s): C50.919 - MALIGNANT NEOPLASM OF UNSP SITE OF UNSPECIFIED FEMALE BREAST Qualifiers: Breast location: overlapping sites of breast Laterality: right (3) Headache Code(s): R51 - HEADACHE (4) Hypertension Code(s): I10 - ESSENTIAL (PRIMARY) HYPERTENSION 5 uti plan continue current mgmt continue abx patient improving physio rest as per the teas
[2017-10-06] MEDS: ONDANSETRON 4 MG/2 ML VIAL IVPUSH PRN ×2 (15:55→22:20)
[2017-10-06] MEDS ORDERED: INSULIN (NOVOLOG) ASPART 100 UNITS/ML 10ML VIAL ONE ×2 (16:49→21:30)
--- NOTE | 2017-10-06 17:11 | CONS ---
DATE OF CONSULTATION: 10/06/2017 REFERRING PHYSICIAN: Gabbi Tovar MD REASON FOR CONSULTATION: Brain metastases status post radiation therapy. HISTORY OF PRESENT ILLNESS: The patient is a 57-year-old woman known to our practice from 2014 when she received Gamma Knife radiosurgery, followed by whole-brain radiation therapy. She was initially diagnosed with a HER2-positive right breast cancer. She subsequently had brain and bone metastases. She had a right parietal craniotomy and a resection, followed by postoperative Gamma Knife radiosurgery to the resection cavity and 5 additional metastases in March 2015; 15 Gy was delivered. At the time of the Gamma Knife procedure, she was noted to have at least 25 smaller brain metastases and thus received 30 Gy whole-brain radiation therapy in April 2015. She then received systemic therapy as well as HER2 therapy with Dr. Kiser. In the summer of 2016, she was admitted for unsteadiness and a fall secondary to increased right hemisphere edema with midline shift. She improved with steroid therapy and was discharged. I had recommended a perfusion MRI to help rule out the possibility of radionecrosis, in addition to the possibility of progressive brain metastases. She was lost to followup and reportedly has continued systemic therapy, most recently on anti-HER2 treatment. She has had headaches for approximately 2 weeks and again presented with unsteadiness and a fall. She was admitted and CT of the head showed extensive edema with midline shift. She was started on steroids. She was found to have a urinary tract infection and placed on antibiotics. She was noted to have left hemiparesis. She was seen by neurology, neurosurgery, and medical oncology specialists. MRI of the brain showed increasing edema in the right hemisphere with mass effect, associated with a 1-cm [id number] midline shift, compression of the ventricles but no hydrocephalus, and enhancement in the right parietal and occipital regions including the prior occipital surgical cavity. She is clinically improving with resolution of some of her deficits. She denies headache, nausea, vomiting, blurry vision. She has no paresthesias but notes weakness in the left arm. PAST MEDICAL HISTORY: Hypertension, diabetes mellitus, GERD, prior radiotherapy and chemotherapy as noted. PAST SURGICAL HISTORY: Right parietal craniotomy as noted, . ALLERGIES: OXYCODONE. CURRENT MEDICATIONS: Decadron, insulin, potassium, Synthroid, Keppra, ceftriaxone, losartan, hydrochlorothiazide. SOCIAL HISTORY: She lives with her family. 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 She is a nonsmoker and does not consume alcoholic beverages. FAMILY HISTORY: No history of malignancy. REVIEW OF SYSTEMS: Denies weight loss or change in appetite. She admits to intermittent confusion and memory difficulties most recently. The remainder of review of systems is negative or otherwise as noted previously. PHYSICAL EXAMINATION: General: female appearing her age in no acute distress. She is alert. Speech is fluent. Oriented to her name, hospital, year. Vital Signs: Temperature 97.8, blood pressure 167/95, pulse 54, respiratory rate 18, SaO2 of 97% on room air. HEENT: Alopecia with no xerosis or other skin changes. Moist mucous membranes. Clear oral cavity. Neck: No adenopathy. Chest: Decreased breath sounds. Cardiovascular: Regular. Abdomen: Benign. Extremities: No significant edema. Neurologic: Left field cut, mild droop, midline tongue; 4/5 left upper and lower extremities, 5/5 right upper and lower extremities. Gait was not tested. RADIOLOGIC DATA: CT head and MRI of brain as noted previously. There is increased edema with mass effect, midline shift and ventricle compression compared to the MRI in May 2017, and perhaps slightly increased extent of occipital nodular enhancement. IMPRESSION: A 57-year-old woman with stage IV breast cancer, bone and brain metastases, status post craniotomy/resection, postoperative Gamma Knife followed by whole-brain radiation therapy, on HER2 therapy with increased brain edema associated with significant mass effect and midline shift. There is persistent enhancement, perhaps slightly increased in a nodular pattern around the prior surgical cavity in the occipital lobe. She has clinically and neurologically improved on steroids and antibiotic therapy. I would agree with continuing medical management as she continues to improve. While radiation necrosis is still a possibility, she more likely has progression of her brain metastases. She has received Gamma Knife to numerous lesions, as well as whole-brain radiation therapy. There will be a narrow therapeutic window for additional radiation therapy which would be limited to only radiosurgery at this point. I will review her prior treatment brothers as well as current MRI with Radiology. A perfusion MRI can still be considered to rule out radionecrosis and can be arranged when she is outpatient. PLAN: Continue current medical management and close neurologic followup. She may follow up with me as outpatient and I will further discuss with Dr. Kiser as well. Thank you for allowing me to participate in the care of this patient. ANIBAL MICHELE M.D. LIANA/[id number] MTDEileen
--- NOTE | 2017-10-06 19:00 | PN ---
Progress Note (short form) - Note Progress Note: PAtient seen and examined Comfortable Walked a few steps with physical therapy today Last Vital Signs Temp Pulse Resp BP Pulse Ox 98.5 F 70 18 151/96 98 10/06/17 14:38 10/06/17 14:38 10/06/17 14:38 10/06/17 14:38 10/06/17 09:00 Cor: RSR, No murmurs, No gallops Lungs: Clear to P&A Abd: Soft, Normal bowel sounds, No organomegaly Ext:No significant edema Abnormal Lab Results 10/06/17 10/06/17 07:53 07:53 RBC 5.26 H MCV 74.2 L MCH 23.8 L RDW 18.0 H Plt Count 116 L Neutrophils % 85.6 H Monocytes % 3.2 L Potassium 3.4 L Random Glucose 323 H* AST 47 H Alkaline Phosphatase 143 H Albumin 3.0 L Active Medications Generic Name Dose Route Start Last Admin Trade Name Freq PRN Reason Stop Dose Admin Dexamethasone Sodium Phosphate 8 mg 10/06/17 02:00 10/06/17 18:10 Decadron Injection - IVPUSH 8 mg Q8H-IV JD Administration HCTZ/Losartan Potassium 2 tab 10/05/17 10:00 10/06/17 08:59 Hyzaar - PO 2 tab DAILY JD Administration Ceftriaxone Sodium 1 gm/ 50 mls @ 100 mls/hr 10/05/17 10:00 10/06/17 10:07 Dextrose IVPB 100 mls/hr DAILY JD Administration Protocol Insulin Aspart 1 vial 10/06/17 07:00 10/06/17 16:59 Novolog Vial Sliding Scale - SQ 8 units ACHS JD Administration Protocol Insulin Detemir 27 units 10/06/17 07:00 10/06/17 06:47 Levemir Vial SQ 27 units AM JD Administration Levetiracetam 500 mg 10/05/17 10:00 10/06/17 08:59 Keppra - PO 500 mg BID JD Administration Levothyroxine Sodium 25 mcg 10/06/17 07:00 10/06/17 06:48 Synthroid - PO 25 mcg DAILY@0700 JD Administration Ondansetron HCl 4 mg 10/05/17 07:35 10/06/17 15:55 Zofran Injection IVPUSH 4 mg Q6H PRN Administration NAUSEA AND/OR VOMITING A/P Progressive brain metastatic disease , underlying breast cancer On HEr2 based single agent. TDM-1 Right parietal/occipital brain metastasis with surrounding edema and midline shift on MRI h/o gammaknife/ resection now progressive disease ? RT boost on 8mg Q 8h decadron with PPI continue supportive care
--- NOTE | 2017-10-06 21:48 | PN ---
Progress Note (short form) - Note Progress Note: Patient continues to improve. MRI findings show occipital enhancement and Right parietal abnormality. No acute decompression planned. Palliative decompression may be contemplated if patient persists in being symptomatic from Right hemispheric mass effect and cannot be managed with steroids for a prolonged period of time.
--- NOTE | 2017-10-06 23:43 | PN ---
Progress Note, Physician - Current Medication List Current Medications: Active Medications Dexamethasone Sodium Phosphate (Decadron Injection -) 8 mg IVPUSH Q8H-IV [facility] Last Admin: 10/06/17 18:10 Dose: 8 mg HCTZ/Losartan Potassium (Hyzaar -) 2 tab PO DAILY [facility] Last Admin: 10/06/17 08:59 Dose: 2 tab Ceftriaxone Sodium 1 gm/ (Dextrose) 50 mls @ 100 mls/hr IVPB DAILY JD PRN Reason: Protocol Last Admin: 10/06/17 10:07 Dose: 100 mls/hr Insulin Aspart (Novolog Vial Sliding Scale -) 1 vial SQ ACHS JD PRN Reason: Protocol Last Admin: 10/06/17 22:20 Dose: 10 units Insulin Detemir (Levemir Vial) 27 units SQ AM [facility] Last Admin: 10/06/17 06:47 Dose: 27 units Levetiracetam (Keppra -) 500 mg PO BID [facility] Last Admin: 10/06/17 22:20 Dose: 500 mg Levothyroxine Sodium (Synthroid -) 25 mcg PO DAILY@0700 [facility] Last Admin: 10/06/17 06:48 Dose: 25 mcg Ondansetron HCl (Zofran Injection) 4 mg IVPUSH Q6H PRN PRN Reason: NAUSEA AND/OR VOMITING Last Admin: 10/06/17 22:20 Dose: 4 mg - Objective Vital Signs: Vital Signs Temperature 98.4 F 10/06/17 18:00 Pulse Rate 70 10/06/17 18:25 Respiratory Rate 18 10/06/17 18:25 Blood Pressure 154/99 10/06/17 18:25 O2 Sat by Pulse Oximetry (%) 98 10/06/17 09:00 Labs: CBC, BMP 10/06/17 07:53 10/06/17 07:53 Problem List - Problems (1) Cerebral edema Code(s): G93.6 - CEREBRAL EDEMA (2) UTI (urinary tract infection) Code(s): N39.0 - URINARY TRACT INFECTION, SITE NOT SPECIFIED (3) Breast CA Code(s): C50.919 - MALIGNANT NEOPLASM OF UNSP SITE OF UNSPECIFIED FEMALE BREAST Qualifiers: Breast location: overlapping sites of breast Laterality: right (4) Headache Code(s): R51 - HEADACHE (5) Hypertension Code(s): I10 - ESSENTIAL (PRIMARY) HYPERTENSION (6) Hypothyroidism Code(s): E03.9 - HYPOTHYROIDISM, UNSPECIFIED
[2017-10-06] MEDS ORDERED: POTASSIUM CHLORIDE TABS 20 MEQ TABLET.ER (FP) PO ONE (23:45)
[2017-10-07] MEDS: DEXAMETHASONE SOD PHOSPHATE 4 MG/1 ML VIAL IVPUSH SCH ×3 (01:52→17:57)
[2017-10-07] MEDS: LEVOTHYROXINE NA 25 MCG TABLET (FP) PO SCH (06:32)
[2017-10-07] MEDS: INSULIN SLIDING SCALE (NOVOLOG) 1 VIAL SQ SCH ×4 (06:32→21:32)
[2017-10-07] MEDS: INSULIN (LEVEMIR) 100 UNITS/ML UNITS SQ SCH (06:33)
[2017-10-07 07:32] LABS: BASO % 0.1 % (0-2.0); HEMATOCRIT 36.2 % (32.4-45.2); HEMOGLOBIN 11.8 GM/dL (10.7-15.3); LYMPH % 11.9 % (8-40); MCH 23.9 pg (25.7-33.7); MCHC 32.5 g/dl (32.0-36.0); MEAN CELL VOLUME 73.6 fl (80-96); MEAN PLT VOLUME 9.6 fl (7.5-11.1); MONO % 4.9 % (3.8-10.2); NEUT % 83.1 % (42.8-82.8); PLATELET COUNT 116 K/MM3 (134-434); RBC 4.92 M/mm3 (3.60-5.2); RDW 17.9 % (11.6-15.6); WHITE BLOOD COUNT 10.9 K/mm3 (4.0-10.0)
[2017-10-07 07:45] LABS: ALBUMIN 2.7 g/dl (3.4-5.0); ANION GAP 6 (8-16); BLOOD UREA NITROGEN 22 mg/dL (7-18); CALCIUM 8.8 mg/dL (8.5-10.1); CHLORIDE 100 mmol/L (98-107); CO2 29 mmol/L (21-32); POTASSIUM 3.6 mmol/L (3.5-5.1); SODIUM 135 mmol/L (136-145)
[2017-10-07 07:51] LABS: ALK PHOS 159 U/L (45-117); BILIRUBIN,TOTAL 0.2 mg/dL (0.2-1.0); CREATININE 0.8 mg/dL (0.55-1.02); SGOT/AST 70 U/L (15-37); SGPT/ALT 87 U/L (12-78); TOT PROT 6.8 g/dl (6.4-8.2)
[2017-10-07 08:33] LABS: GLUCOSE,RANDOM 309 mg/dL (74-106)
[2017-10-07] MEDS: ONDANSETRON 4 MG/2 ML VIAL IVPUSH PRN (10:58)
--- NOTE | 2017-10-07 11:29 | PN ---
Progress Note (short form) - Note Progress Note: PULMONARY Resting comfortably Gen: NAD at rest Heart: RRR Lung: decreased breath sounds at the bases Abd: soft, nontender Ext: no edema Neuro: LLE weakness chart reviewed/labs/meds/notes reviewed ASSESSMENT AND PLAN: Metastatic Breast Ca to Brain s/p resection of brain met Cerebral Vasogenic Edema with evidence of herniation Brain Mets DM - Decadron - AEDs - Antiemetics - Neuro checks - Glucose control while on systemic steroids - aspiration precautions - DVT prophylaxis Donya YE MD
[2017-10-07] MEDS ORDERED: INSULIN (NOVOLOG) ASPART 100 UNITS/ML 10ML VIAL ONE (12:22)
[2017-10-07] MEDS ORDERED: cefTRIAXone SODIUM 1 GM VIAL ONE (12:22)
[2017-10-07] MEDS ORDERED: DEXTROSE 5%-WATER - 50 ML IVPB ONE (12:22)
[2017-10-07] MEDS ORDERED: PT OWN MED DRAWER 7, Y5N ONE (12:23)
[2017-10-07] MEDS: LOSARTAN 50MG/HCTZ 12.5MG 1 TAB (FP) PO SCH (12:27)
[2017-10-07] MEDS: levETIRAcetam 500 MG TABLET (FP) PO SCH ×2 (12:27→21:32)
[2017-10-07] MEDS: CEFTRIAXONE 1 GM in DEXTROSE 5%-WATER - 50 ML IVPB SCH (12:27)
--- NOTE | 2017-10-07 14:06 | PN ---
Progress Note, Physician History of Present Illness: stable continues to improve legs still numb feeling - Current Medication List Current Medications: Active Medications Dexamethasone Sodium Phosphate (Decadron Injection -) 8 mg IVPUSH Q8H-IV [facility] Last Admin: 10/07/17 11:04 Dose: 8 mg HCTZ/Losartan Potassium (Hyzaar -) 2 tab PO DAILY [facility] Last Admin: 10/07/17 12:27 Dose: 2 tab Ceftriaxone Sodium 1 gm/ (Dextrose) 50 mls @ 100 mls/hr IVPB DAILY JD PRN Reason: Protocol Last Admin: 10/07/17 12:27 Dose: 100 mls/hr Insulin Aspart (Novolog Vial Sliding Scale -) 1 vial SQ ACHS JD PRN Reason: Protocol Last Admin: 10/07/17 12:26 Dose: 7 units Insulin Detemir (Levemir Vial) 27 units SQ AM [facility] Last Admin: 10/07/17 06:33 Dose: 27 units Levetiracetam (Keppra -) 500 mg PO BID [facility] Last Admin: 10/07/17 12:27 Dose: 500 mg Levothyroxine Sodium (Synthroid -) 25 mcg PO DAILY@0700 [facility] Last Admin: 10/07/17 06:32 Dose: 25 mcg Ondansetron HCl (Zofran Injection) 4 mg IVPUSH Q6H PRN PRN Reason: NAUSEA AND/OR VOMITING Last Admin: 10/07/17 10:58 Dose: 4 mg - Objective Vital Signs: Vital Signs Temperature 98.4 F 10/07/17 10:00 Pulse Rate 52 L 10/07/17 10:00 Respiratory Rate 20 10/07/17 10:00 Blood Pressure 158/93 10/07/17 10:00 O2 Sat by Pulse Oximetry (%) 96 10/06/17 21:00 Constitutional: Yes: No Distress, Calm Cardiovascular: Yes: Regular Rate and Rhythm Respiratory: Yes: Regular, CTA Bilaterally Gastrointestinal: Yes: Normal Bowel Sounds, Soft Musculoskeletal: Yes: Muscle Pain (lower ext), Other Extremities: Yes: WNL Neurological: Yes: Alert, Oriented Psychiatric: Yes: Alert, Oriented Labs: CBC, BMP 10/07/17 06:55 10/07/17 06:55 Assessment/Plan Problem List - Problems (1) Cerebral edema Code(s): G93.6 - CEREBRAL EDEMA (2) Breast CA Code(s): C50.919 - MALIGNANT NEOPLASM OF UNSP SITE OF UNSPECIFIED FEMALE BREAST Qualifiers: Breast location: overlapping sites of breast Laterality: right (3) Headache Code(s): R51 - HEADACHE (4) Hypertension Code(s): I10 - ESSENTIAL (PRIMARY) HYPERTENSION 5 uti plan continue current mgmt continue abx patient improving physio rest as per the team by monday will deescalate the abx
--- NOTE | 2017-10-07 23:30 | HP ---
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) Cardiovascular: Yes: HTN Heme/Onc: Yes: Cancer (breast cancer-invasive ductal poorly differenciated with necrosis 12/03) Endocrine: Yes: Diabetes Mellitus - Past Surgical History Past Surgical History: Yes: Breast Biopsy, - Smoking History Smoking history: Never smoked Have you smoked in the past 12 months: No Aproximately how many cigarettes per day: 0 - Alcohol/Substance Use Hx Alcohol Use: No History of Substance Use: reports: None - Social History ADL: Support Services 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 History of Recent Travel: No Home Medications - Allergies Allergies/Adverse Reactions: Allergies Allergy/AdvReac Type Severity Reaction Status Date / Time Iodinated Contrast- Oral and Allergy Verified 10/06/17 07:44 IV Dye oxycodone HCl [From Percocet] Allergy Verified 10/03/17 05:48 - Home Medications Home Medications: Ambulatory Orders Ferrous Sulfate 325 mg PO BID 03/22/16 Omeprazole 40 mg PO DAILY 03/22/16 Capecitabine 1,000 mg PO BID 12/16/16 Lapatinib Ditosylate [Tykerb] 1,250 mg PO DAILY 12/16/16 levETIRAcetam [Keppra -] 500 mg PO BID tablet 12/25/16 Lidocaine 5% Patch [Lidoderm Patch -] 1 patch TP DAILY #7 patch 06/23/17 Dexamethasone 4 mg PO DAILY 10/03/17 Insulin (Levemir) [Levemir Vial] 20 units SQ AM 10/03/17 Losartan/Hydrochlorothiazide [Losartan-Hctz 100-25 mg Tab] 1 each PO DAILY 10/03 Family Disease History - Family Disease History Family Disease History: Other: Grandparent (asthma), Father ( of unknown cause), Mother (htn), Brother (3B healthy and living), Sister (4S healthy and living) Physical Examination Vital Signs: Vital Signs Temperature 98.1 F 10/07/17 17:02 Pulse Rate 54 L 10/07/17 17:02 Respiratory Rate 24 10/07/17 17:02 Blood Pressure 149/87 10/07/17 17:02 O2 Sat by Pulse Oximetry (%) 96 10/07/17 09:00 Labs: CBC, BMP 10/07/17 06:55 10/07/17 16:40 Problem List - Problems (1) Cerebral edema Code(s): G93.6 - CEREBRAL EDEMA (2) UTI (urinary tract infection) Code(s): N39.0 - URINARY TRACT INFECTION, SITE NOT SPECIFIED (3) Breast CA Code(s): C50.919 - MALIGNANT NEOPLASM OF UNSP SITE OF UNSPECIFIED FEMALE BREAST Qualifiers: Breast location: overlapping sites of breast Laterality: right (4) Headache Code(s): R51 - HEADACHE (5) Hypertension Code(s): I10 - ESSENTIAL (PRIMARY) HYPERTENSION (6) Hypothyroidism Code(s): E03.9 - HYPOTHYROIDISM, UNSPECIFIED
[2017-10-08] MEDS: DEXAMETHASONE SOD PHOSPHATE 4 MG/1 ML VIAL IVPUSH SCH ×3 (02:03→17:08)
[2017-10-08] MEDS: INSULIN (LEVEMIR) 100 UNITS/ML UNITS SQ SCH (06:52)
[2017-10-08] MEDS: INSULIN SLIDING SCALE (NOVOLOG) 1 VIAL SQ SCH ×4 (06:53→22:20)
[2017-10-08] MEDS: LEVOTHYROXINE NA 25 MCG TABLET (FP) PO SCH (06:54)
[2017-10-08] MEDS ORDERED: cefTRIAXone SODIUM 1 GM VIAL ONE (09:09)
[2017-10-08] MEDS ORDERED: DEXTROSE 5%-WATER - 50 ML IVPB ONE (09:10)
[2017-10-08] MEDS: levETIRAcetam 500 MG TABLET (FP) PO SCH ×2 (09:27→22:20)
[2017-10-08] MEDS: LOSARTAN 50MG/HCTZ 12.5MG 1 TAB (FP) PO SCH (09:27)
[2017-10-08] MEDS: CEFTRIAXONE 1 GM in DEXTROSE 5%-WATER - 50 ML IVPB SCH (09:30)
[2017-10-08] MEDS ORDERED: INSULIN (LEVEMIR) 100 UNITS/ML UNITS SQ ONE ×2 (09:59→10:30)
--- NOTE | 2017-10-08 11:52 | PN ---
Progress Note, Physician History of Present Illness: stable continues to improve legs improving - Current Medication List Current Medications: Active Medications Dexamethasone Sodium Phosphate (Decadron Injection -) 8 mg IVPUSH Q8H-IV [facility] Last Admin: 10/08/17 09:26 Dose: 8 mg HCTZ/Losartan Potassium (Hyzaar -) 2 tab PO DAILY [facility] Last Admin: 10/08/17 09:27 Dose: 2 tab Ceftriaxone Sodium 1 gm/ (Dextrose) 50 mls @ 100 mls/hr IVPB DAILY JD PRN Reason: Protocol Last Admin: 10/08/17 09:30 Dose: 100 mls/hr Insulin Aspart (Novolog Vial Sliding Scale -) 1 vial SQ ACHS JD PRN Reason: Protocol Last Admin: 10/08/17 06:53 Dose: 10 units Insulin Detemir (Levemir Vial) 27 units SQ AM [facility] Last Admin: 10/08/17 06:52 Dose: 27 units Levetiracetam (Keppra -) 500 mg PO BID [facility] Last Admin: 10/08/17 09:27 Dose: 500 mg Levothyroxine Sodium (Synthroid -) 25 mcg PO DAILY@0700 [facility] Last Admin: 10/08/17 06:54 Dose: 25 mcg Ondansetron HCl (Zofran Injection) 4 mg IVPUSH Q6H PRN PRN Reason: NAUSEA AND/OR VOMITING Last Admin: 10/07/17 10:58 Dose: 4 mg - Objective Vital Signs: Vital Signs Temperature 97.5 F L 10/08/17 07:00 Pulse Rate 56 L 10/08/17 07:00 Respiratory Rate 20 10/08/17 07:00 Blood Pressure 180/95 10/08/17 07:00 O2 Sat by Pulse Oximetry (%) 96 10/07/17 21:00 Constitutional: Yes: No Distress, Calm Cardiovascular: Yes: Regular Rate and Rhythm Respiratory: Yes: Regular, CTA Bilaterally Gastrointestinal: Yes: Normal Bowel Sounds, Soft Musculoskeletal: Yes: WNL Extremities: Yes: WNL Neurological: Yes: Alert, Oriented Psychiatric: Yes: Alert, Oriented Labs: CBC, BMP 10/07/17 06:55 10/08/17 08:50 Assessment/Plan Problem List - Problems (1) Cerebral edema Code(s): G93.6 - CEREBRAL EDEMA (2) Breast CA Code(s): C50.919 - MALIGNANT NEOPLASM OF UNSP SITE OF UNSPECIFIED FEMALE BREAST Qualifiers: Breast location: overlapping sites of breast Laterality: right (3) Headache Code(s): R51 - HEADACHE (4) Hypertension Code(s): I10 - ESSENTIAL (PRIMARY) HYPERTENSION 5 uti plan continue current mgmt continue abx will deescalte abx after tomorrows dose continue to monitor
[2017-10-08] MEDS ORDERED: INSULIN (NOVOLOG) ASPART 100 UNITS/ML 10ML VIAL ONE (12:02)
--- NOTE | 2017-10-08 12:45 | PN ---
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
[2017-10-08] MEDS: DOCUSATE SODIUM 100 MG CAPSULE (FP) PO SCH ×2 (17:08→22:20)
[2017-10-08] MEDS ORDERED: DEXAMETHASONE SOD PHOSPHATE 10 MG/1 ML VIAL IVPUSH SCH (22:15)
--- NOTE | 2017-10-08 22:16 | PN ---
Progress Note, Physician History of Present Illness: Pt still w/ Lt sided weakness - Current Medication List Current Medications: Active Medications Acetaminophen (Tylenol -) 650 mg PO Q6H PRN PRN Reason: PAIN 1-5 Dexamethasone Sodium Phosphate (Decadron Injection -) 6 mg IVPUSH Q8H-IV [facility] Docusate Sodium (Colace -) 100 mg PO TID [facility] Last Admin: 10/08/17 17:08 Dose: 100 mg HCTZ/Losartan Potassium (Hyzaar -) 2 tab PO DAILY [facility] Last Admin: 10/08/17 09:27 Dose: 2 tab Ceftriaxone Sodium 1 gm/ (Dextrose) 50 mls @ 100 mls/hr IVPB DAILY [facility] PRN Reason: Protocol Last Admin: 10/08/17 09:30 Dose: 100 mls/hr Insulin Aspart (Novolog Vial Sliding Scale -) 1 vial SQ ACHS [facility] PRN Reason: Protocol Last Admin: 10/08/17 16:34 Dose: 7 units Insulin Detemir (Levemir Vial) 35 units SQ HS [facility] Levetiracetam (Keppra -) 500 mg PO BID [facility] Last Admin: 10/08/17 09:27 Dose: 500 mg Levothyroxine Sodium (Synthroid -) 25 mcg PO DAILY@0700 [facility] Last Admin: 10/08/17 06:54 Dose: 25 mcg Ondansetron HCl (Zofran Injection) 4 mg IVPUSH Q6H PRN PRN Reason: NAUSEA AND/OR VOMITING Last Admin: 10/07/17 10:58 Dose: 4 mg - Objective Vital Signs: Vital Signs Temperature 98.0 F 10/08/17 18:00 Pulse Rate 64 10/08/17 18:00 Respiratory Rate 18 10/08/17 18:00 Blood Pressure 160/104 10/08/17 18:00 O2 Sat by Pulse Oximetry (%) 96 10/08/17 09:00 Neck: Yes: WNL, Supple Cardiovascular: Yes: WNL, Regular Rate and Rhythm Respiratory: Yes: WNL, Regular, CTA Bilaterally Gastrointestinal: Yes: WNL, Normal Bowel Sounds, Soft Labs: CBC, BMP 10/07/17 06:55 10/08/17 08:50 Problem List - Problems (1) Cerebral edema Assessment/Plan: Breast cancer w/ mets to brain Pt presented w/ worsening edema and subfalcine herniation on ct scan MRI brain showed necrotic rt occipital lesion/rt parietal mass/edema Taper IV decadron Cont keppra empirically as antiepileptic Sliding scal w/ insulin for glucose control while on steroids Will increase dose of levemir Code(s): G93.6 - CEREBRAL EDEMA (2) UTI (urinary tract infection) Assessment/Plan: Due to klebsiella Cont IV ceftriaxone Code(s): N39.0 - URINARY TRACT INFECTION, SITE NOT SPECIFIED (3) Breast CA Assessment/Plan: Metastatic cancer to brain Code(s): C50.919 - MALIGNANT NEOPLASM OF UNSP SITE OF UNSPECIFIED FEMALE BREAST Qualifiers: Breast location: overlapping sites of breast Laterality: right (4) Headache Assessment/Plan: Due to cerebral edema Improved Code(s): R51 - HEADACHE (5) Hypertension Assessment/Plan: Cont losartan hctz BP stable Code(s): I10 - ESSENTIAL (PRIMARY) HYPERTENSION (6) Hypothyroidism Code(s): E03.9 - HYPOTHYROIDISM, UNSPECIFIED
[2017-10-08] MEDS: ACETAMINOPHEN 325 MG TABLET (FP) PO PRN (22:19)
[2017-10-09] MEDS: DEXAMETHASONE SOD PHOSPHATE 10 MG/1 ML VIAL IVPUSH SCH ×3 (01:21→18:00)
[2017-10-09] MEDS: LEVOTHYROXINE NA 25 MCG TABLET (FP) PO SCH (06:28)
[2017-10-09] MEDS: DOCUSATE SODIUM 100 MG CAPSULE (FP) PO SCH ×3 (06:28→21:49)
[2017-10-09] MEDS: INSULIN SLIDING SCALE (NOVOLOG) 1 VIAL SQ SCH ×4 (06:28→22:32)
[2017-10-09 07:34] LABS: BASO % 0.1 % (0-2.0); HEMATOCRIT 39.4 % (32.4-45.2); HEMOGLOBIN 12.7 GM/dL (10.7-15.3); LYMPH % 10.2 % (8-40); MCH 23.8 pg (25.7-33.7); MCHC 32.2 g/dl (32.0-36.0); MEAN CELL VOLUME 73.8 fl (80-96); MEAN PLT VOLUME 8.9 fl (7.5-11.1); NEUT % 84.7 % (42.8-82.8); PLATELET COUNT 137 K/MM3 (134-434); RBC 5.34 M/mm3 (3.60-5.2); RDW 17.8 % (11.6-15.6); WHITE BLOOD COUNT 10.1 K/mm3 (4.0-10.0)
[2017-10-09 07:43] LABS: ALBUMIN 2.7 g/dl (3.4-5.0); ANION GAP 9 (8-16); BLOOD UREA NITROGEN 25 mg/dL (7-18); CALCIUM 8.9 mg/dL (8.5-10.1); CHLORIDE 99 mmol/L (98-107); CO2 27 mmol/L (21-32); GLUCOSE,RANDOM 287 mg/dL (74-106); POTASSIUM 3.4 mmol/L (3.5-5.1); SODIUM 135 mmol/L (136-145)
[2017-10-09 07:47] LABS: ALK PHOS 148 U/L (45-117); BILIRUBIN,TOTAL 0.2 mg/dL (0.2-1.0); CREATININE 0.7 mg/dL (0.55-1.02); SGOT/AST 47 U/L (15-37); SGPT/ALT 84 U/L (12-78); TOT PROT 6.6 g/dl (6.4-8.2)
[2017-10-09] MEDS ORDERED: PT OWN MED DRAWER 7, Y5N ONE ×2 (09:51→17:40)
[2017-10-09] MEDS ORDERED: cefTRIAXone SODIUM 1 GM VIAL ONE (09:52)
[2017-10-09] MEDS ORDERED: DEXTROSE 5%-WATER - 50 ML IVPB ONE (09:52)
[2017-10-09] MEDS: CEFTRIAXONE 1 GM in DEXTROSE 5%-WATER - 50 ML IVPB SCH (10:00)
[2017-10-09] MEDS: levETIRAcetam 500 MG TABLET (FP) PO SCH ×2 (10:00→21:49)
[2017-10-09] MEDS: LOSARTAN 50MG/HCTZ 12.5MG 1 TAB (FP) PO SCH (10:01)
--- NOTE | 2017-10-09 12:44 | PN ---
Progress Note, Physician History of Present Illness: stable feeling much better still weak was able to a little with help of physio sitting in chair no complaints - Current Medication List Current Medications: Active Medications Acetaminophen (Tylenol -) 650 mg PO Q6H PRN PRN Reason: PAIN 1-5 Last Admin: 10/08/17 22:19 Dose: 650 mg Dexamethasone Sodium Phosphate (Decadron Injection -) 6 mg IVPUSH Q8H-IV [facility] Last Admin: 10/09/17 10:00 Dose: 6 mg Docusate Sodium (Colace -) 100 mg PO TID [facility] Last Admin: 10/09/17 06:28 Dose: 100 mg HCTZ/Losartan Potassium (Hyzaar -) 2 tab PO DAILY [facility] Last Admin: 10/09/17 10:01 Dose: 2 tab Insulin Aspart (Novolog Vial Sliding Scale -) 1 vial SQ ACHS [facility] PRN Reason: Protocol Last Admin: 10/09/17 12:29 Dose: 5 units Insulin Detemir (Levemir Vial) 35 units SQ HS [facility] Levetiracetam (Keppra -) 500 mg PO BID [facility] Last Admin: 10/09/17 10:00 Dose: 500 mg Levothyroxine Sodium (Synthroid -) 25 mcg PO DAILY@0700 [facility] Last Admin: 10/09/17 06:28 Dose: 25 mcg Ondansetron HCl (Zofran Injection) 4 mg IVPUSH Q6H PRN PRN Reason: NAUSEA AND/OR VOMITING Last Admin: 10/07/17 10:58 Dose: 4 mg - Objective Vital Signs: Vital Signs Temperature 98.1 F 10/09/17 10:00 Pulse Rate 60 10/09/17 10:00 Respiratory Rate 18 10/09/17 10:00 Blood Pressure 161/99 10/09/17 10:00 O2 Sat by Pulse Oximetry (%) 96 10/08/17 21:00 Constitutional: Yes: No Distress, Calm Cardiovascular: Yes: Regular Rate and Rhythm Respiratory: Yes: Regular, CTA Bilaterally Gastrointestinal: Yes: Normal Bowel Sounds, Soft Musculoskeletal: Yes: WNL Extremities: Yes: WNL Neurological: Yes: Alert, Oriented Psychiatric: Yes: Alert, Oriented Labs: CBC, BMP 10/09/17 06:45 10/09/17 06:45 Assessment/Plan Problem List - Problems (1) Cerebral edema Code(s): G93.6 - CEREBRAL EDEMA (2) Breast CA Code(s): C50.919 - MALIGNANT NEOPLASM OF UNSP SITE OF UNSPECIFIED FEMALE BREAST Qualifiers: Breast location: overlapping sites of breast Laterality: right (3) Headache Code(s): R51 - HEADACHE (4) Hypertension Code(s): I10 - ESSENTIAL (PRIMARY) HYPERTENSION 5 uti plan stopped abx nutrition physio rest as per the team
[2017-10-09 16:15] VITALS: BMI 29.7
--- NOTE | 2017-10-09 19:39 | PN ---
Progress Note, Physician Chief Complaint: in bed no pain limited mobility and high sugars likely coincide History of Present Illness: diabetes mellitus hyperglycemia,cva,ashd,htn - Current Medication List Current Medications: Active Medications Acetaminophen (Tylenol -) 650 mg PO Q6H PRN PRN Reason: PAIN 1-5 Last Admin: 10/08/17 22:19 Dose: 650 mg Dexamethasone Sodium Phosphate (Decadron Injection -) 6 mg IVPUSH Q8H-IV [facility] Last Admin: 10/09/17 18:00 Dose: 6 mg Docusate Sodium (Colace -) 100 mg PO TID [facility] Last Admin: 10/09/17 14:30 Dose: 100 mg HCTZ/Losartan Potassium (Hyzaar -) 2 tab PO DAILY [facility] Last Admin: 10/09/17 10:01 Dose: 2 tab Insulin Aspart (Novolog Vial Sliding Scale -) 1 vial SQ ACHS [facility] PRN Reason: Protocol Last Admin: 10/09/17 17:59 Dose: 8 units Insulin Detemir (Levemir Vial) 35 units SQ HS [facility] Levetiracetam (Keppra -) 500 mg PO BID [facility] Last Admin: 10/09/17 10:00 Dose: 500 mg Levothyroxine Sodium (Synthroid -) 25 mcg PO DAILY@0700 [facility] Last Admin: 10/09/17 06:28 Dose: 25 mcg Ondansetron HCl (Zofran Injection) 4 mg IVPUSH Q6H PRN PRN Reason: NAUSEA AND/OR VOMITING Last Admin: 10/07/17 10:58 Dose: 4 mg - Objective Vital Signs: Vital Signs Temperature 98.0 F 10/09/17 14:32 Pulse Rate 60 10/09/17 14:32 Respiratory Rate 18 10/09/17 14:32 Blood Pressure 141/81 10/09/17 14:32 O2 Sat by Pulse Oximetry (%) 96 10/09/17 09:00 Constitutional: Yes: Well Nourished Eyes: Yes: EOM Intact HENT: Yes: Normocephalic Neck: Yes: Trachea Midline Cardiovascular: Yes: Regular Rate and Rhythm Respiratory: Yes: CTA Bilaterally Gastrointestinal: Yes: Normal Bowel Sounds ...Rectal Exam: Yes: Deferred Genitourinary: Yes: WNL Musculoskeletal: Yes: WNL Extremities: Yes: WNL Edema: No Neurological: Yes: Alert, Oriented Labs: CBC, BMP 10/09/17 06:45 10/09/17 06:45 Problem List - Problems (1) Hypothyroidism Code(s): E03.9 - HYPOTHYROIDISM, UNSPECIFIED (2) Vasogenic cerebral edema Code(s): G93.6 - CEREBRAL EDEMA (3) Back pain Code(s): M54.9 - DORSALGIA, UNSPECIFIED Qualifiers: Back pain location: back pain in other location Chronicity: chronic Qualified Code(s): M54.9 - Dorsalgia, unspecified; G89.29 - Other chronic pain; G89.29 - Other chronic pain (4) Breast CA Code(s): C50.919 - MALIGNANT NEOPLASM OF UNSP SITE OF UNSPECIFIED FEMALE BREAST Qualifiers: Breast location: overlapping sites of breast Laterality: right (5) Cerebral edema Code(s): G93.6 - CEREBRAL EDEMA Assessment/Plan Current Active Problems Hypothyroidism (Acute) Vasogenic cerebral edema (Acute) diabetes mellitus hyperglycemia htn ashd, Abnormal Lab Results 10/09/17 10/09/17 06:45 06:45 WBC 10.1 H RBC 5.34 H MCV 73.8 L MCH 23.8 L RDW 17.8 H Neutrophils % 84.7 H Sodium 135 L Potassium 3.4 L BUN 25 H Random Glucose 287 H AST 47 H ALT 84 H Alkaline Phosphatase 148 H Albumin 2.7 L Laboratory Results - last 24 hr 10/08/17 10/09/17 10/09/17 21:21 05:46 06:45 WBC 10.1 H RBC 5.34 H Hgb 12.7 Hct 39.4 MCV 73.8 L MCH 23.8 L MCHC 32.2 RDW 17.8 H Plt Count 137 MPV 8.9 Neutrophils % 84.7 H Lymphocytes % 10.2 Monocytes % 5.0 Eosinophils % 0.0 Basophils % 0.1 Sodium Potassium Chloride Carbon Dioxide Anion Gap BUN Creatinine Creat Clearance w eGFR POC Glucometer 377 256 Random Glucose Calcium Total Bilirubin AST ALT Alkaline Phosphatase Total Protein Albumin 10/09/17 06:45 WBC RBC Hgb Hct MCV MCH MCHC RDW Plt Count MPV Neutrophils % Lymphocytes % Monocytes % Eosinophils % Basophils % Sodium 135 L Potassium 3.4 L Chloride 99 Carbon Dioxide 27 Anion Gap 9 BUN 25 H Creatinine 0.7 Creat Clearance w eGFR > 60 POC Glucometer Random Glucose 287 H Calcium 8.9 Total Bilirubin 0.2 AST 47 H ALT 84 H Alkaline Phosphatase 148 H Total Protein 6.6 Albumin 2.7 L Laboratory Tests 10/03/17 10/04/17 10/04/17 06:51 05:55 05:55 TSH 9.99 H Free T4 0.81 Free T3 1.8 L plan: levemir 35 units am levemir 20 units hs bgm novolog insulin doses synthroid 25mcg daily Laboratory Tests 10/07/17 10/07/17 10/07/17 06:55 11:27 21:18 POC Glucometer 329 323 Hemoglobin A1c % 11.7 H 10/08/17 10/08/17 10/08/17 11:57 16:04 21:21 POC Glucometer 360 343 377 Hemoglobin A1c % 10/09/17 05:46 POC Glucometer 256 Hemoglobin A1c %
[2017-10-09] MEDS ORDERED: INSULIN (LEVEMIR) 100 UNITS/ML UNITS SQ SCH (22:00)
[2017-10-09] MEDS: INSULIN (LEVEMIR) 100 UNITS/ML UNITS SQ SCH (23:15)
--- NOTE | 2017-10-09 23:50 | PN ---
Progress Note, Physician - Current Medication List Current Medications: Active Medications Acetaminophen (Tylenol -) 650 mg PO Q6H PRN PRN Reason: PAIN 1-5 Last Admin: 10/08/17 22:19 Dose: 650 mg Dexamethasone Sodium Phosphate (Decadron Injection -) 6 mg IVPUSH Q8H-IV [facility] Last Admin: 10/09/17 18:00 Dose: 6 mg Docusate Sodium (Colace -) 100 mg PO TID [facility] Last Admin: 10/09/17 21:49 Dose: 100 mg HCTZ/Losartan Potassium (Hyzaar -) 2 tab PO DAILY [facility] Last Admin: 10/09/17 10:01 Dose: 2 tab Insulin Aspart (Novolog Vial Sliding Scale -) 1 vial SQ ACHS [facility] PRN Reason: Protocol Last Admin: 10/09/17 22:32 Dose: 14 units Insulin Detemir (Levemir Vial) 35 units SQ AM JD Insulin Detemir (Levemir Vial) 20 units SQ HS [facility] Last Admin: 10/09/17 23:15 Dose: 20 units Levetiracetam (Keppra -) 500 mg PO BID [facility] Last Admin: 10/09/17 21:49 Dose: 500 mg Levothyroxine Sodium (Synthroid -) 25 mcg PO DAILY@0700 [facility] Last Admin: 10/09/17 06:28 Dose: 25 mcg Ondansetron HCl (Zofran Injection) 4 mg IVPUSH Q6H PRN PRN Reason: NAUSEA AND/OR VOMITING Last Admin: 10/07/17 10:58 Dose: 4 mg - Objective Vital Signs: Vital Signs Temperature 98.0 F 10/09/17 18:00 Pulse Rate 81 10/09/17 18:00 Respiratory Rate 20 10/09/17 18:00 Blood Pressure 156/97 10/09/17 18:00 O2 Sat by Pulse Oximetry (%) 96 10/09/17 09:00 Labs: CBC, BMP 10/09/17 06:45 10/09/17 06:45 Problem List - Problems (1) Cerebral edema Code(s): G93.6 - CEREBRAL EDEMA (2) UTI (urinary tract infection) Code(s): N39.0 - URINARY TRACT INFECTION, SITE NOT SPECIFIED (3) Breast CA Code(s): C50.919 - MALIGNANT NEOPLASM OF UNSP SITE OF UNSPECIFIED FEMALE BREAST Qualifiers: Breast location: overlapping sites of breast Laterality: right (4) Headache Code(s): R51 - HEADACHE (5) Hypertension Code(s): I10 - ESSENTIAL (PRIMARY) HYPERTENSION (6) Hypothyroidism Code(s): E03.9 - HYPOTHYROIDISM, UNSPECIFIED
[2017-10-10] MEDS ORDERED: PT OWN MED DRAWER 7, Y5N ONE ×3 (01:52→23:16)
[2017-10-10] MEDS: DEXAMETHASONE SOD PHOSPHATE 4 MG/1 ML VIAL IVPUSH SCH ×3 (03:03→19:00)
[2017-10-10] MEDS: INSULIN SLIDING SCALE (NOVOLOG) 1 VIAL SQ SCH ×4 (06:21→23:18)
[2017-10-10] MEDS: DOCUSATE SODIUM 100 MG CAPSULE (FP) PO SCH ×3 (06:22→23:20)
[2017-10-10] MEDS: LEVOTHYROXINE NA 25 MCG TABLET (FP) PO SCH (06:22)
[2017-10-10] MEDS ORDERED: INSULIN (LEVEMIR) 100 UNITS/ML UNITS SQ SCH (07:00)
[2017-10-10] MEDS: levETIRAcetam 500 MG TABLET (FP) PO SCH ×2 (11:42→23:20)
[2017-10-10] MEDS: LOSARTAN 50MG/HCTZ 12.5MG 1 TAB (FP) PO SCH (11:42)
[2017-10-10] MEDS: ACETAMINOPHEN 325 MG TABLET (FP) PO PRN (14:54)
--- NOTE | 2017-10-10 15:10 | PN ---
Progress Note, Physician History of Present Illness: stable no issues feeling well - Current Medication List Current Medications: Active Medications Acetaminophen (Tylenol -) 650 mg PO Q6H PRN PRN Reason: PAIN 1-5 Last Admin: 10/10/17 14:54 Dose: 650 mg Dexamethasone Sodium Phosphate (Decadron Injection -) 6 mg IVPUSH Q8H-IV [facility] Last Admin: 10/10/17 11:51 Dose: 6 mg Docusate Sodium (Colace -) 100 mg PO TID [facility] Last Admin: 10/10/17 14:54 Dose: 100 mg HCTZ/Losartan Potassium (Hyzaar -) 2 tab PO DAILY [facility] Last Admin: 10/10/17 11:42 Dose: 2 tab Insulin Aspart (Novolog Vial Sliding Scale -) 1 vial SQ ACHS [facility] PRN Reason: Protocol Last Admin: 10/10/17 12:22 Dose: 9 units Insulin Detemir (Levemir Vial) 35 units SQ AM [facility] Last Admin: 10/10/17 06:20 Dose: 35 units Insulin Detemir (Levemir Vial) 20 units SQ HS [facility] Last Admin: 10/09/17 23:15 Dose: 20 units Levetiracetam (Keppra -) 500 mg PO BID [facility] Last Admin: 10/10/17 11:42 Dose: 500 mg Levothyroxine Sodium (Synthroid -) 25 mcg PO DAILY@0700 [facility] Last Admin: 10/10/17 06:22 Dose: 25 mcg Ondansetron HCl (Zofran Injection) 4 mg IVPUSH Q6H PRN PRN Reason: NAUSEA AND/OR VOMITING Last Admin: 10/07/17 10:58 Dose: 4 mg - Objective Vital Signs: Vital Signs Temperature 98.1 F 10/10/17 06:00 Pulse Rate 62 10/10/17 06:00 Respiratory Rate 20 10/10/17 06:00 Blood Pressure 180/99 10/10/17 06:00 O2 Sat by Pulse Oximetry (%) 96 10/09/17 21:00 Constitutional: Yes: No Distress, Calm Cardiovascular: Yes: Regular Rate and Rhythm Respiratory: Yes: Regular, CTA Bilaterally Gastrointestinal: Yes: Normal Bowel Sounds, Soft Musculoskeletal: Yes: WNL Extremities: Yes: WNL Neurological: Yes: Alert, Oriented Psychiatric: Yes: Alert, Oriented Labs: CBC, BMP 10/09/17 06:45 05/21/18 06:45 Assessment/Plan Problem List - Problems (1) Cerebral edema Code(s): G93.6 - CEREBRAL EDEMA (2) Breast CA Code(s): C50.919 - MALIGNANT NEOPLASM OF UNSP SITE OF UNSPECIFIED FEMALE BREAST Qualifiers: Breast location: overlapping sites of breast Laterality: right (3) Headache Code(s): R51 - HEADACHE (4) Hypertension Code(s): I10 - ESSENTIAL (PRIMARY) HYPERTENSION 5 uti plan stable off of abx nutrition physio rest as per the team
--- NOTE | 2017-10-10 16:31 | PN ---
Progress Note (short form) - Note Progress Note: Pt seen and examined. events noted. O/E general: NCAT AOx3 CTA(BL) S1S2 wnl Soft abdomen Weak LLE Last Vital Signs Temp Pulse Resp BP Pulse Ox 98.5 F 68 19 153/97 94 L 10/03/17 14:00 10/03/17 14:00 10/03/17 14:00 10/03/17 14:00 10/03/17 12:37 CBC, BMP 10/03/17 06:51 10/03/17 06:51 Current Medications Generic Name Dose Route Start Last Admin Trade Name Freq PRN Reason Stop Dose Admin Dexamethasone Sodium Phosphate 10 mg 10/03/17 18:00 Decadron Injection - IVPUSH Q8H-IV JD Ceftriaxone Sodium 1 gm/ 50 mls @ 100 mls/hr 10/04/17 10:00 Dextrose IVPB 10/05/17 09:59 DAILY JD Protocol Insulin Aspart 1 vial 10/03/17 16:30 Novolog Vial Sliding Scale - SQ ACHS JD Protocol Levetiracetam 500 mg 10/03/17 22:00 Keppra - PO BID JD Ondansetron HCl 4 mg 10/03/17 13:52 Zofran Injection IVPUSH Q6H PRN NAUSEA AND/OR VOMITING Progressive brain metastatic disease , underlying breast cancer On HEr2 based single agent. TDM-1 Right parietal/occipital brain metastasis with surrounding edema and midline shift on MRI h/o gammaknife/ resection now progressive disease ? RT boost on 8mg Q 8h decadron with PPI continue supportive care
--- NOTE | 2017-10-10 22:46 | PN ---
Progress Note, Physician - Current Medication List Current Medications: Active Medications Acetaminophen (Tylenol -) 650 mg PO Q6H PRN PRN Reason: PAIN 1-5 Last Admin: 10/10/17 14:54 Dose: 650 mg Dexamethasone Sodium Phosphate (Decadron Injection -) 6 mg IVPUSH Q8H-IV [facility] Last Admin: 10/10/17 19:00 Dose: 6 mg Docusate Sodium (Colace -) 100 mg PO TID [facility] Last Admin: 10/10/17 14:54 Dose: 100 mg HCTZ/Losartan Potassium (Hyzaar -) 2 tab PO DAILY [facility] Last Admin: 10/10/17 11:42 Dose: 2 tab Insulin Aspart (Novolog Vial Sliding Scale -) 1 vial SQ ACHS [facility] PRN Reason: Protocol Last Admin: 10/10/17 17:33 Dose: 9 units Insulin Detemir (Levemir Vial) 35 units SQ AM [facility] Last Admin: 10/10/17 06:20 Dose: 35 units Insulin Detemir (Levemir Vial) 20 units SQ HS [facility] Last Admin: 10/09/17 23:15 Dose: 20 units Levetiracetam (Keppra -) 500 mg PO BID [facility] Last Admin: 10/10/17 11:42 Dose: 500 mg Levothyroxine Sodium (Synthroid -) 25 mcg PO DAILY@0700 [facility] Last Admin: 10/10/17 06:22 Dose: 25 mcg Ondansetron HCl (Zofran Injection) 4 mg IVPUSH Q6H PRN PRN Reason: NAUSEA AND/OR VOMITING Last Admin: 10/07/17 10:58 Dose: 4 mg - Objective Vital Signs: Vital Signs Temperature 97.9 F 10/10/17 18:00 Pulse Rate 73 10/10/17 18:45 Respiratory Rate 19 10/10/17 18:45 Blood Pressure 143/85 10/10/17 18:45 O2 Sat by Pulse Oximetry (%) 99 10/10/17 09:00 Labs: CBC, BMP 10/09/17 06:45 10/09/17 06:45 Problem List - Problems (1) Cerebral edema Code(s): G93.6 - CEREBRAL EDEMA (2) UTI (urinary tract infection) Code(s): N39.0 - URINARY TRACT INFECTION, SITE NOT SPECIFIED (3) Breast CA Code(s): C50.919 - MALIGNANT NEOPLASM OF UNSP SITE OF UNSPECIFIED FEMALE BREAST Qualifiers: Breast location: overlapping sites of breast Laterality: right (4) Headache Code(s): R51 - HEADACHE (5) Hypertension Code(s): I10 - ESSENTIAL (PRIMARY) HYPERTENSION (6) Hypothyroidism Code(s): E03.9 - HYPOTHYROIDISM, UNSPECIFIED
[2017-10-10] MEDS: INSULIN (LEVEMIR) 100 UNITS/ML UNITS SQ SCH (23:19)
[2017-10-11] MEDS: DEXAMETHASONE SOD PHOSPHATE 4 MG/1 ML VIAL IVPUSH SCH ×3 (02:52→17:21)
[2017-10-11] MEDS: LEVOTHYROXINE NA 25 MCG TABLET (FP) PO SCH (06:55)
[2017-10-11] MEDS: DOCUSATE SODIUM 100 MG CAPSULE (FP) PO SCH ×3 (06:55→22:11)
[2017-10-11] MEDS ORDERED: INSULIN (LEVEMIR) 100 UNITS/ML UNITS SQ SCH (07:00)
[2017-10-11] MEDS: INSULIN SLIDING SCALE (NOVOLOG) 1 VIAL SQ SCH ×4 (07:08→22:10)
[2017-10-11 07:45] LABS: BASO % 0.1 % (0-2.0); HEMATOCRIT 39.1 % (32.4-45.2); HEMOGLOBIN 12.6 GM/dL (10.7-15.3); LYMPH % 7.7 % (8-40); MCH 23.7 pg (25.7-33.7); MCHC 32.2 g/dl (32.0-36.0); MEAN CELL VOLUME 73.6 fl (80-96); MEAN PLT VOLUME 9.6 fl (7.5-11.1); MONO % 6.4 % (3.8-10.2); NEUT % 85.8 % (42.8-82.8); PLATELET COUNT 160 K/MM3 (134-434); RBC 5.32 M/mm3 (3.60-5.2); RDW 17.8 % (11.6-15.6); WHITE BLOOD COUNT 9.9 K/mm3 (4.0-10.0)
[2017-10-11 08:09] LABS: CHLORIDE 101 mmol/L (98-107); POTASSIUM 3.3 mmol/L (3.5-5.1); SODIUM 136 mmol/L (136-145)
[2017-10-11 08:14] LABS: ALBUMIN 2.6 g/dl (3.4-5.0); ALK PHOS 172 U/L (45-117); ANION GAP 7 (8-16); BILIRUBIN,TOTAL 0.3 mg/dL (0.2-1.0); BLOOD UREA NITROGEN 25 mg/dL (7-18); CALCIUM 8.6 mg/dL (8.5-10.1); CO2 28 mmol/L (21-32); CREATININE 0.7 mg/dL (0.55-1.02); GLUCOSE,RANDOM 291 mg/dL (74-106); SGOT/AST 51 U/L (15-37); SGPT/ALT 95 U/L (12-78); TOT PROT 6.6 g/dl (6.4-8.2)
[2017-10-11] MEDS ORDERED: PT OWN MED DRAWER 7, Y5N ONE (09:45)
[2017-10-11] MEDS: amLODIPine BESYLATE 2.5 MG TABLET (FP) PO SCH (11:03)
[2017-10-11] MEDS: LOSARTAN 50MG/HCTZ 12.5MG 1 TAB (FP) PO SCH (11:03)
[2017-10-11] MEDS: levETIRAcetam 500 MG TABLET (FP) PO SCH ×2 (11:04→22:10)
--- NOTE | 2017-10-11 15:09 | PN ---
Progress Note, Physician History of Present Illness: stable doing well worked with physio still no strength in ext - Current Medication List Current Medications: Active Medications Acetaminophen (Tylenol -) 650 mg PO Q6H PRN PRN Reason: PAIN 1-5 Last Admin: 10/10/17 14:54 Dose: 650 mg Amlodipine Besylate (Norvasc -) 2.5 mg PO DAILY [facility] Last Admin: 10/11/17 11:03 Dose: 2.5 mg Dexamethasone Sodium Phosphate (Decadron Injection -) 6 mg IVPUSH Q8H-IV [facility] Last Admin: 10/11/17 11:03 Dose: 6 mg Docusate Sodium (Colace -) 100 mg PO TID [facility] Last Admin: 10/11/17 14:49 Dose: 100 mg HCTZ/Losartan Potassium (Hyzaar -) 2 tab PO DAILY [facility] Last Admin: 10/11/17 11:03 Dose: 2 tab Insulin Aspart (Novolog Vial Sliding Scale -) 1 vial SQ [facility]; Protocol Last Admin: 10/11/17 12:13 Dose: 7 units Insulin Detemir (Levemir Vial) 20 units SQ HS [facility] Last Admin: 10/10/17 23:19 Dose: 20 units Insulin Detemir (Levemir Vial) 40 units SQ AM [facility] Last Admin: 10/11/17 07:08 Dose: 40 units Levetiracetam (Keppra -) 500 mg PO BID [facility] Last Admin: 10/11/17 11:04 Dose: 500 mg Levothyroxine Sodium (Synthroid -) 25 mcg PO DAILY@0700 [facility] Last Admin: 10/11/17 06:55 Dose: 25 mcg Ondansetron HCl (Zofran Injection) 4 mg IVPUSH Q6H PRN PRN Reason: NAUSEA AND/OR VOMITING Last Admin: 10/07/17 10:58 Dose: 4 mg - Objective Vital Signs: Vital Signs Temperature 97.8 F 10/11/17 10:00 Pulse Rate 72 10/11/17 10:00 Respiratory Rate 20 10/11/17 10:00 Blood Pressure 144/78 10/11/17 10:00 O2 Sat by Pulse Oximetry (%) 99 10/10/17 21:00 Constitutional: Yes: No Distress, Calm Cardiovascular: Yes: Regular Rate and Rhythm Respiratory: Yes: Regular, CTA Bilaterally Gastrointestinal: Yes: Normal Bowel Sounds, Soft Musculoskeletal: Yes: WNL Extremities: Yes: WNL Neurological: Yes: Alert, Oriented Psychiatric: Yes: Alert, Oriented Labs: CBC, BMP 10/11/17 07:05 10/11/17 07:05 Assessment/Plan Problem List - Problems (1) Cerebral edema Code(s): G93.6 - CEREBRAL EDEMA (2) Breast CA Code(s): C50.919 - MALIGNANT NEOPLASM OF UNSP SITE OF UNSPECIFIED FEMALE BREAST Qualifiers: Breast location: overlapping sites of breast Laterality: right (3) Headache Code(s): R51 - HEADACHE (4) Hypertension Code(s): I10 - ESSENTIAL (PRIMARY) HYPERTENSION 5 uti plan stable off of abx nutrition physio rest as per the team patient stable
[2017-10-11] MEDS ORDERED: POTASSIUM CHLORIDE TABS 20 MEQ TABLET.ER (FP) PO ONE (18:30)
--- NOTE | 2017-10-11 21:13 | PN ---
Progress Note, Physician History of Present Illness: Pt still w/ Lt sided weakness - Current Medication List Current Medications: Active Medications Acetaminophen (Tylenol -) 650 mg PO Q6H PRN PRN Reason: PAIN 1-5 Last Admin: 10/10/17 14:54 Dose: 650 mg Amlodipine Besylate (Norvasc -) 2.5 mg PO DAILY [facility] Last Admin: 10/11/17 11:03 Dose: 2.5 mg Dexamethasone Sodium Phosphate (Decadron Injection -) 6 mg IVPUSH Q8H-IV [facility] Last Admin: 10/11/17 17:21 Dose: 6 mg Docusate Sodium (Colace -) 100 mg PO TID [facility] Last Admin: 10/11/17 14:49 Dose: 100 mg HCTZ/Losartan Potassium (Hyzaar -) 2 tab PO DAILY [facility] Last Admin: 10/11/17 11:03 Dose: 2 tab Insulin Aspart (Novolog Vial Sliding Scale -) 1 vial SQ [facility]; Protocol Last Admin: 10/11/17 17:20 Dose: 9 units Insulin Detemir (Levemir Vial) 20 units SQ HS [facility] Last Admin: 10/10/17 23:19 Dose: 20 units Insulin Detemir (Levemir Vial) 40 units SQ AM [facility] Last Admin: 10/11/17 07:08 Dose: 40 units Levetiracetam (Keppra -) 500 mg PO BID [facility] Last Admin: 10/11/17 11:04 Dose: 500 mg Levothyroxine Sodium (Synthroid -) 25 mcg PO DAILY@0700 [facility] Last Admin: 10/11/17 06:55 Dose: 25 mcg Ondansetron HCl (Zofran Injection) 4 mg IVPUSH Q6H PRN PRN Reason: NAUSEA AND/OR VOMITING Last Admin: 10/07/17 10:58 Dose: 4 mg - Objective Vital Signs: Vital Signs Temperature 98.2 F 10/11/17 19:00 Pulse Rate 60 10/11/17 19:00 Respiratory Rate 18 10/11/17 19:00 Blood Pressure 155/92 10/11/17 19:00 O2 Sat by Pulse Oximetry (%) 97 10/11/17 09:00 Constitutional: Yes: No Distress Neck: Yes: WNL, Supple Cardiovascular: Yes: WNL, Regular Rate and Rhythm Respiratory: Yes: WNL, Regular, CTA Bilaterally Gastrointestinal: Yes: WNL, Normal Bowel Sounds, Soft Labs: CBC, BMP 10/11/17 07:05 10/11/17 07:05 Problem List - Problems (1) Hyperglycemia Assessment/Plan: Steroid induced Levemir dose being adjusted Cont sliding scale w/ coverge Code(s): R73.9 - HYPERGLYCEMIA, UNSPECIFIED (2) Cerebral edema Assessment/Plan: Breast cancer w/ mets to brain Pt presented w/ worsening edema and subfalcine herniation on ct scan MRI brain showed necrotic rt occipital lesion/rt parietal mass/edema Taper IV decadron Change to PO decadron on 10/13/17 PT jamial Spoke to pt and family about STR placement wc they are agreeable to Reconsult onco for dc planning Cont keppra empirically as antiepileptic Sliding scal w/ insulin for glucose control while on steroids Will increase dose of levemir Code(s): G93.6 - CEREBRAL EDEMA (3) UTI (urinary tract infection) Assessment/Plan: Due to klebsiella Pt finished course of IV antibiotics Code(s): N39.0 - URINARY TRACT INFECTION, SITE NOT SPECIFIED (4) Breast CA Assessment/Plan: Metastatic cancer to brain Code(s): C50.919 - MALIGNANT NEOPLASM OF UNSP SITE OF UNSPECIFIED FEMALE BREAST Qualifiers: Breast location: overlapping sites of breast Laterality: right (5) Headache Code(s): R51 - HEADACHE (6) Hypertension Assessment/Plan: Cont losartan hctz Norvasc added Cont to monitor BP Code(s): I10 - ESSENTIAL (PRIMARY) HYPERTENSION (7) Hypothyroidism Assessment/Plan: Cont levothyroxine Code(s): E03.9 - HYPOTHYROIDISM, UNSPECIFIED
[2017-10-11] MEDS: INSULIN (LEVEMIR) 100 UNITS/ML UNITS SQ SCH (22:10)
--- NOTE | 2017-10-12 00:19 | PN ---
Progress Note (short form) - Note Progress Note: hyperglycemia likely stress related steroid and immobility Current Active Problems Hypothyroidism (Acute) Vasogenic cerebral edema (Acute cerebral mets /l breast neoplasm iddm hypeglycemia diabetic neuropathy Abnormal Lab Results 10/11/17 10/11/17 07:05 07:05 RBC 5.32 H MCV 73.6 L MCH 23.7 L RDW 17.8 H Neutrophils % 85.8 H Lymphocytes % 7.7 L D Potassium 3.3 L Anion Gap 7 L BUN 25 H Random Glucose 291 H AST 51 H ALT 95 H Alkaline Phosphatase 172 H Albumin 2.6 L Laboratory Results - last 24 hr 10/10/17 10/11/17 10/11/17 22:56 07:05 07:05 WBC 9.9 RBC 5.32 H Hgb 12.6 Hct 39.1 MCV 73.6 L MCH 23.7 L MCHC 32.2 RDW 17.8 H Plt Count 160 MPV 9.6 Neutrophils % 85.8 H Lymphocytes % 7.7 L D Monocytes % 6.4 Eosinophils % 0.0 Basophils % 0.1 Nucleated RBC % 0 Sodium 136 Potassium 3.3 L Chloride 101 Carbon Dioxide 28 Anion Gap 7 L BUN 25 H Creatinine 0.7 Creat Clearance w eGFR > 60 POC Glucometer 408 Random Glucose 291 H Calcium 8.6 Total Bilirubin 0.3 D AST 51 H ALT 95 H Alkaline Phosphatase 172 H Total Protein 6.6 Albumin 2.6 L 10/11/17 10/11/17 10/11/17 07:05 12:13 17:14 WBC RBC Hgb Hct MCV MCH MCHC RDW Plt Count MPV Neutrophils % Lymphocytes % Monocytes % Eosinophils % Basophils % Nucleated RBC % Sodium Potassium Chloride Carbon Dioxide Anion Gap BUN Creatinine Creat Clearance w eGFR POC Glucometer 297 281 338 Random Glucose Calcium Total Bilirubin AST ALT Alkaline Phosphatase Total Protein Albumin plan: bgm scale adjustment levemir dose 50 am/ 27 hs will need continue monitoring sugars and scale adjustment Problem List - Problems (1) Hypothyroidism Code(s): E03.9 - HYPOTHYROIDISM, UNSPECIFIED (2) Vasogenic cerebral edema Code(s): G93.6 - CEREBRAL EDEMA (3) Back pain Code(s): M54.9 - DORSALGIA, UNSPECIFIED Qualifiers: Back pain location: back pain in other location Chronicity: chronic Qualified Code(s): M54.9 - Dorsalgia, unspecified; G89.29 - Other chronic pain; G89.29 - Other chronic pain (4) Breast CA Code(s): C50.919 - MALIGNANT NEOPLASM OF UNSP SITE OF UNSPECIFIED FEMALE BREAST Qualifiers: Breast location: overlapping sites of breast Laterality: right (5) Cerebral edema Code(s): G93.6 - CEREBRAL EDEMA
[2017-10-12] MEDS: DEXAMETHASONE SOD PHOSPHATE 4 MG/1 ML VIAL IVPUSH SCH ×3 (02:34→17:40)
[2017-10-12] MEDS: INSULIN (LEVEMIR) 100 UNITS/ML UNITS SQ SCH (06:50)
[2017-10-12] MEDS: INSULIN SLIDING SCALE (NOVOLOG) 1 VIAL SQ SCH ×4 (06:50→22:34)
[2017-10-12] MEDS: LEVOTHYROXINE NA 25 MCG TABLET (FP) PO SCH (06:51)
[2017-10-12] MEDS: DOCUSATE SODIUM 100 MG CAPSULE (FP) PO SCH ×3 (06:51→22:34)
[2017-10-12] MEDS ORDERED: INSULIN (NOVOLOG) ASPART 100 UNITS/ML 10ML VIAL ONE ×2 (06:56→07:43)
[2017-10-12 07:50] LABS: BASO % 0.1 % (0-2.0); HEMATOCRIT 39.5 % (32.4-45.2); HEMOGLOBIN 12.7 GM/dL (10.7-15.3); LYMPH % 8.1 % (8-40); MCH 23.9 pg (25.7-33.7); MCHC 32.1 g/dl (32.0-36.0); MEAN CELL VOLUME 74.5 fl (80-96); MEAN PLT VOLUME 9.4 fl (7.5-11.1); MONO % 6.5 % (3.8-10.2); NEUT % 85.3 % (42.8-82.8); PLATELET COUNT 138 K/MM3 (134-434); RBC 5.31 M/mm3 (3.60-5.2); RDW 18.2 % (11.6-15.6); WHITE BLOOD COUNT 10.8 K/mm3 (4.0-10.0)
[2017-10-12 08:23] LABS: CHLORIDE 102 mmol/L (98-107); POTASSIUM 3.5 mmol/L (3.5-5.1); SODIUM 137 mmol/L (136-145)
[2017-10-12 08:42] LABS: ALBUMIN 2.7 g/dl (3.4-5.0); ALK PHOS 192 U/L (45-117); ANION GAP 9 (8-16); BILIRUBIN,TOTAL 0.2 mg/dL (0.2-1.0); BLOOD UREA NITROGEN 26 mg/dL (7-18); CO2 26 mmol/L (21-32); CREATININE 0.6 mg/dL (0.55-1.02); GLUCOSE,RANDOM 216 mg/dL (74-106); SGOT/AST 53 U/L (15-37); SGPT/ALT 104 U/L (12-78); TOT PROT 6.5 g/dl (6.4-8.2)
[2017-10-12] MEDS ORDERED: PT OWN MED DRAWER 7, Y5N ONE (10:39)
[2017-10-12] MEDS: levETIRAcetam 500 MG TABLET (FP) PO SCH ×2 (11:04→22:34)
[2017-10-12] MEDS: amLODIPine BESYLATE 2.5 MG TABLET (FP) PO SCH (11:04)
[2017-10-12] MEDS: LOSARTAN 50MG/HCTZ 12.5MG 1 TAB (FP) PO SCH (11:04)
--- NOTE | 2017-10-12 12:25 | PN ---
Progress Note, Physician History of Present Illness: stable doing well no complaints - Current Medication List Current Medications: Active Medications Acetaminophen (Tylenol -) 650 mg PO Q6H PRN PRN Reason: PAIN 1-5 Last Admin: 10/10/17 14:54 Dose: 650 mg Amlodipine Besylate (Norvasc -) 2.5 mg PO DAILY [facility] Last Admin: 10/12/17 11:04 Dose: 2.5 mg Dexamethasone Sodium Phosphate (Decadron Injection -) 6 mg IVPUSH Q8H-IV [facility] Last Admin: 10/12/17 11:04 Dose: 6 mg Docusate Sodium (Colace -) 100 mg PO TID [facility] Last Admin: 10/12/17 06:51 Dose: 100 mg HCTZ/Losartan Potassium (Hyzaar -) 2 tab PO DAILY [facility] Last Admin: 10/12/17 11:04 Dose: 2 tab Insulin Aspart (Novolog Vial Sliding Scale -) 1 vial SQ [facility]; Protocol Last Admin: 10/12/17 06:50 Dose: 8 units Insulin Detemir (Levemir Vial) 50 units SQ AM [facility] Last Admin: 10/12/17 06:50 Dose: 50 units Insulin Detemir (Levemir Vial) 27 units SQ HS [facility] Levetiracetam (Keppra -) 500 mg PO BID [facility] Last Admin: 10/12/17 11:04 Dose: 500 mg Levothyroxine Sodium (Synthroid -) 25 mcg PO DAILY@0700 [facility] Last Admin: 10/12/17 06:51 Dose: 25 mcg Ondansetron HCl (Zofran Injection) 4 mg IVPUSH Q6H PRN PRN Reason: NAUSEA AND/OR VOMITING Last Admin: 10/07/17 10:58 Dose: 4 mg - Objective Vital Signs: Vital Signs Temperature 98.3 F 10/12/17 06:00 Pulse Rate 61 10/12/17 06:00 Respiratory Rate 18 10/12/17 06:00 Blood Pressure 172/92 10/12/17 06:00 O2 Sat by Pulse Oximetry (%) 96 10/11/17 21:00 Constitutional: Yes: No Distress, Calm Cardiovascular: Yes: Regular Rate and Rhythm Respiratory: Yes: Regular, CTA Bilaterally Gastrointestinal: Yes: Normal Bowel Sounds, Soft Musculoskeletal: Yes: WNL Extremities: Yes: WNL Neurological: Yes: Alert, Oriented Psychiatric: Yes: Alert, Oriented Labs: CBC, BMP 10/12/17 07:00 10/12/17 07:00 Assessment/Plan Problem List - Problems (1) Cerebral edema Code(s): G93.6 - CEREBRAL EDEMA (2) Breast CA Code(s): C50.919 - MALIGNANT NEOPLASM OF UNSP SITE OF UNSPECIFIED FEMALE BREAST Qualifiers: Breast location: overlapping sites of breast Laterality: right (3) Headache Code(s): R51 - HEADACHE (4) Hypertension Code(s): I10 - ESSENTIAL (PRIMARY) HYPERTENSION 5 uti plan stable off of abx nutrition physio rest as per the team patient stable
--- NOTE | 2017-10-12 17:06 | PN ---
Progress Note (short form) - Note Progress Note: Pt seen and examined. chart reviewed she says she is feeling "better". She says she followed with therapist today Pt expressing interest to f/u with /rehab. O/E general: NCAT AOx3 CTA(BL) S1S2 wnl Soft abdomen Weak LLE Last Vital Signs Temp Pulse Resp BP Pulse Ox 98.5 F 68 19 153/97 94 L 10/03/17 14:00 10/03/17 14:00 10/03/17 14:00 10/03/17 14:00 10/03/17 12:37 CBC, BMP 10/03/17 06:51 10/03/17 06:51 Current Medications Generic Name Dose Route Start Last Admin Trade Name Freq PRN Reason Stop Dose Admin Dexamethasone Sodium Phosphate 10 mg 10/03/17 18:00 Decadron Injection - IVPUSH Q8H-IV JD Ceftriaxone Sodium 1 gm/ 50 mls @ 100 mls/hr 10/04/17 10:00 Dextrose IVPB 10/05/17 09:59 DAILY JD Protocol Insulin Aspart 1 vial 10/03/17 16:30 Novolog Vial Sliding Scale - SQ ACHS JD Protocol Levetiracetam 500 mg 10/03/17 22:00 Keppra - PO BID JD Ondansetron HCl 4 mg 10/03/17 13:52 Zofran Injection IVPUSH Q6H PRN NAUSEA AND/OR VOMITING Progressive brain metastatic disease , underlying breast cancer On HEr2 based single agent. TDM-1 Right parietal/occipital brain metastasis with surrounding edema and midline shift on MRI h/o gammaknife/ resection. on 6mg Q 8h decadron with PPI continue supportive care PT /rehab/ OP f.u with and [facility]. Pt aware. would need d.c on steroids. poor insight overall
[2017-10-12] MEDS ORDERED: INSULIN (LEVEMIR) 100 UNITS/ML UNITS SQ SCH (22:00)
--- NOTE | 2017-10-12 23:24 | PN ---
Progress Note, Physician History of Present Illness: Pt still w/ Lt sided weakness - Current Medication List Current Medications: Active Medications Acetaminophen (Tylenol -) 650 mg PO Q6H PRN PRN Reason: PAIN 1-5 Last Admin: 10/10/17 14:54 Dose: 650 mg Amlodipine Besylate (Norvasc -) 2.5 mg PO DAILY [facility] Last Admin: 10/12/17 11:04 Dose: 2.5 mg Dexamethasone Sodium Phosphate (Decadron Injection -) 6 mg IVPUSH Q8H-IV [facility] Last Admin: 10/12/17 17:40 Dose: 6 mg Docusate Sodium (Colace -) 100 mg PO TID [facility] Last Admin: 10/12/17 22:34 Dose: 100 mg HCTZ/Losartan Potassium (Hyzaar -) 2 tab PO DAILY [facility] Last Admin: 10/12/17 11:04 Dose: 2 tab Insulin Aspart (Novolog Vial Sliding Scale -) 1 vial SQ [facility]; Protocol Last Admin: 10/12/17 22:34 Dose: 12 units Insulin Detemir (Levemir Vial) 50 units SQ AM [facility] Last Admin: 10/12/17 06:50 Dose: 50 units Insulin Detemir (Levemir Vial) 27 units SQ HS [facility] Last Admin: 10/12/17 22:34 Dose: 27 units Levetiracetam (Keppra -) 500 mg PO BID [facility] Last Admin: 10/12/17 22:34 Dose: 500 mg Levothyroxine Sodium (Synthroid -) 25 mcg PO DAILY@0700 [facility] Last Admin: 10/12/17 06:51 Dose: 25 mcg Ondansetron HCl (Zofran Injection) 4 mg IVPUSH Q6H PRN PRN Reason: NAUSEA AND/OR VOMITING Last Admin: 10/07/17 10:58 Dose: 4 mg - Objective Vital Signs: Vital Signs Temperature 98.4 F 10/12/17 18:30 Pulse Rate 69 10/12/17 18:30 Respiratory Rate 20 10/12/17 18:30 Blood Pressure 145/87 10/12/17 18:30 O2 Sat by Pulse Oximetry (%) 96 10/12/17 09:00 Neck: Yes: WNL, Supple Cardiovascular: Yes: WNL, Regular Rate and Rhythm Respiratory: Yes: WNL, Regular, CTA Bilaterally Gastrointestinal: Yes: WNL, Normal Bowel Sounds, Soft Labs: CBC, BMP 10/12/17 07:00 10/12/17 07:00 Problem List - Problems (1) Cerebral edema Assessment/Plan: Breast cancer w/ mets to brain Pt presented w/ worsening edema and subfalcine herniation on ct scan MRI brain showed necrotic rt occipital lesion/rt parietal mass/edema Change to po decadron in am Spoke to pt about dc planning for am to home and she wants to f/u w/ her onco as outpt Cont keppra empirically as antiepileptic Code(s): G93.6 - CEREBRAL EDEMA (2) Hyperglycemia Assessment/Plan: Steroid induced Cont Levemir Cont sliding scale w/ coverge Code(s): R73.9 - HYPERGLYCEMIA, UNSPECIFIED (3) UTI (urinary tract infection) Code(s): N39.0 - URINARY TRACT INFECTION, SITE NOT SPECIFIED (4) Breast CA Code(s): C50.919 - MALIGNANT NEOPLASM OF UNSP SITE OF UNSPECIFIED FEMALE BREAST Qualifiers: Breast location: overlapping sites of breast Laterality: right (5) Headache Code(s): R51 - HEADACHE (6) Hypertension Assessment/Plan: Cont losartan hctz Cont norvasc Cont to monitor BP Code(s): I10 - ESSENTIAL (PRIMARY) HYPERTENSION (7) Hypothyroidism Code(s): E03.9 - HYPOTHYROIDISM, UNSPECIFIED
[2017-10-13] MEDS: DEXAMETHASONE SOD PHOSPHATE 4 MG/1 ML VIAL IVPUSH SCH ×2 (02:28→09:36)
[2017-10-13] MEDS: LEVOTHYROXINE NA 25 MCG TABLET (FP) PO SCH (07:01)
[2017-10-13] MEDS: INSULIN SLIDING SCALE (NOVOLOG) 1 VIAL SQ SCH ×3 (07:02→16:59)
[2017-10-13] MEDS: INSULIN (LEVEMIR) 100 UNITS/ML UNITS SQ SCH (07:02)
[2017-10-13] MEDS: DOCUSATE SODIUM 100 MG CAPSULE (FP) PO SCH ×2 (07:02→14:52)
[2017-10-13] MEDS ORDERED: INSULIN (NOVOLOG) ASPART 100 UNITS/ML 10ML VIAL ONE (09:26)
[2017-10-13] MEDS ORDERED: PT OWN MED DRAWER 7, Y5N ONE (09:27)
[2017-10-13] MEDS: LOSARTAN 50MG/HCTZ 12.5MG 1 TAB (FP) PO SCH (09:36)
[2017-10-13] MEDS: ACETAMINOPHEN 325 MG TABLET (FP) PO PRN (09:36)
[2017-10-13] MEDS: levETIRAcetam 500 MG TABLET (FP) PO SCH (09:36)
[2017-10-13] MEDS ORDERED: amLODIPine BESYLATE 5 MG TABLET (FP) PO SCH (10:00)
--- NOTE | 2017-10-13 13:10 | PN ---
Progress Note, Physician History of Present Illness: stable doing well no complaints - Current Medication List Current Medications: Active Medications Acetaminophen (Tylenol -) 650 mg PO Q6H PRN PRN Reason: PAIN 1-5 Last Admin: 10/13/17 09:36 Dose: 650 mg Amlodipine Besylate (Norvasc -) 5 mg PO DAILY [facility] Last Admin: 10/13/17 09:36 Dose: 5 mg Dexamethasone (Decadron -) 4 mg PO TID [facility] Docusate Sodium (Colace -) 100 mg PO TID [facility] Last Admin: 10/13/17 07:02 Dose: 100 mg HCTZ/Losartan Potassium (Hyzaar -) 2 tab PO DAILY [facility] Last Admin: 10/13/17 09:36 Dose: 2 tab Insulin Aspart (Novolog Vial Sliding Scale -) 1 vial SQ [facility]; Protocol Last Admin: 10/13/17 11:19 Dose: 9 units Insulin Detemir (Levemir Vial) 50 units SQ AM [facility] Last Admin: 10/13/17 07:02 Dose: 50 units Insulin Detemir (Levemir Vial) 27 units SQ HS [facility] Last Admin: 10/12/17 22:34 Dose: 27 units Levetiracetam (Keppra -) 500 mg PO BID [facility] Last Admin: 10/13/17 09:36 Dose: 500 mg Levothyroxine Sodium (Synthroid -) 25 mcg PO DAILY@0700 [facility] Last Admin: 10/13/17 07:01 Dose: 25 mcg Ondansetron HCl (Zofran Injection) 4 mg IVPUSH Q6H PRN PRN Reason: NAUSEA AND/OR VOMITING Last Admin: 10/07/17 10:58 Dose: 4 mg - Objective Vital Signs: Vital Signs Temperature 98.5 F 10/13/17 09:10 Pulse Rate 72 10/13/17 09:10 Respiratory Rate 17 10/13/17 09:10 Blood Pressure 133/92 10/13/17 09:10 O2 Sat by Pulse Oximetry (%) 95 10/12/17 21:00 Constitutional: Yes: No Distress, Calm Cardiovascular: Yes: Regular Rate and Rhythm Respiratory: Yes: Regular, CTA Bilaterally Gastrointestinal: Yes: Normal Bowel Sounds, Soft Musculoskeletal: Yes: WNL Extremities: Yes: WNL Neurological: Yes: Alert, Oriented Psychiatric: Yes: Alert, Oriented Labs: CBC, BMP 10/12/17 07:00 10/12/17 07:00 Assessment/Plan Problem List - Problems (1) Cerebral edema Code(s): G93.6 - CEREBRAL EDEMA (2) Breast CA Code(s): C50.919 - MALIGNANT NEOPLASM OF UNSP SITE OF UNSPECIFIED FEMALE BREAST Qualifiers: Breast location: overlapping sites of breast Laterality: right (3) Headache Code(s): R51 - HEADACHE (4) Hypertension Code(s): I10 - ESSENTIAL (PRIMARY) HYPERTENSION 5 uti plan stable off of abx nutrition physio rest as per the team patient stable
[2017-10-13] MEDS ORDERED: DEXAMETHASONE 4 MG TABLET (FP) PO SCH (14:00)
--- NOTE | 2017-10-13 15:35 | DS ---
Physical Examination Vital Signs: Vital Signs Temperature 98.3 F 10/13/17 14:58 Pulse Rate 93 H 10/13/17 14:58 Respiratory Rate 18 10/13/17 14:58 Blood Pressure 137/82 10/13/17 14:58 O2 Sat by Pulse Oximetry (%) 95 10/12/17 21:00 Labs: CBC, BMP 10/12/17 07:00 10/12/17 07:00 Discharge Summary Reason For Visit: VASOGENIC CEREBRAL EDEMA Current Active Problems Hyperglycemia (Acute) Hypothyroidism (Acute) Vasogenic cerebral edema (Acute) metastatic breast cancer to the brain HTN Uncontrolled diabetes UTI Hospital Course: This 57 yo woman with H/O DM has known metastatic infiltrating ductal breast CA w/ mets to the brain(S/P right mastectomy). Right occipital metastasis treated with stereotactic RT and whole brain RT in 2014. Pt admitted bc of TATUM and Lt sided weakness for [address] of head (C-) on admission: (reviewed) Extensive right cerebral edema with obliteration of the right lateral ventricle and 3-4 cm right to left shift. Pt started on IV decadron wc has now been changed to PO decadron. Pt had MRI brain wc showed necrotic rt occipital lesion/rt parietal mass/edema. Pt wsa followed ct neuro and neurosurgery and oncology. however pt wants to follow up w/ her oncologist as outpt. Pt will need to see her oncologist in a week. [facility] probably due to steroids and her insulin regimen has been sdjusted. Pt also treated w/ IV ceftriaxone for UTI due to kllebsiella and is now off antibiotics. Pt is on keppra empirically for seizures. Condition: Guarded - Instructions Diet, Activity, Other Instructions: 2 gram sodiun and 2200 calorie duabetic diet See your oncologist next week See your primary care doctor Dr Pool in 1 week Referrals: Bakari Pool MD [Primary Care Provider] - Disposition: VNS/HOME HEALTH CARE - Home Medications Comprehensive Discharge Medication List: Ambulatory Orders Ferrous Sulfate 325 mg PO BID 03/22/16 Omeprazole 40 mg PO DAILY 03/22/16 Capecitabine 1,000 mg PO BID 12/16/16 Lapatinib Ditosylate [Tykerb] 1,250 mg PO DAILY 12/16/16 levETIRAcetam [Keppra -] 500 mg PO BID tablet 12/25/16 Lidocaine 5% Patch [Lidoderm -] 1 patch TP DAILY #7 patch 06/23/17 Losartan/Hydrochlorothiazide [Losartan-Hctz 100-25 mg Tab] 1 each PO DAILY 10/03 Acetaminophen [Tylenol .Regular Strength -] 650 mg PO Q6H PRN #90 tablet Amlodipine Besylate [Norvasc -] 5 mg PO DAILY #30 tablet 10/13/17 Dexamethasone [Decadron -] 4 mg PO TID #60 tablet 10/13/17 Docusate Sodium [Colace -] 100 mg PO TID #90 capsule 10/13/17 Insulin (Levemir) [Levemir Vial] 27 units SQ HS #1 ml 10/13/17 Insulin (Levemir) [Levemir Vial] 35 units SQ AM #1 ml 10/13/17 Levothyroxine [Synthroid -] 25 mcg PO DAILY@0700 #30 tablet 10/13/17 levETIRAcetam [Keppra -] 500 mg PO BID #60 tablet 10/13/17
[2017-10-13 20:12] VITALS: BP 158/94; PULSE 95; TEMP 98.6
--- NOTE | 2017-10-13 21:05 | PN ---
Progress Note (short form) - Note Progress Note: PAtient seen and examined Comfortable Last Vital Signs Temp Pulse Resp BP Pulse Ox 98.6 F 95 H 20 158/94 98 10/13/17 20:11 10/13/17 20:11 10/13/17 20:11 10/13/17 20:11 10/13/17 09:40 Cor: RSR, No murmurs, No gallops Lungs: Clear to P&A Abd: Soft, Normal bowel sounds, No organomegaly Ext: left hemiparesis Active Medications Generic Name Dose Route Start Last Admin Trade Name Freq PRN Reason Stop Dose Admin Acetaminophen 650 mg 10/08/17 21:52 10/13/17 09:36 Tylenol - PO 650 mg Q6H PRN Administration PAIN 1-5 Amlodipine Besylate 5 mg 10/13/17 10:00 10/13/17 09:36 Norvasc - PO 5 mg DAILY JD Administration Dexamethasone 4 mg 10/13/17 14:00 10/13/17 14:52 Decadron - PO 4 mg TID JD Administration Docusate Sodium 100 mg 10/08/17 16:15 10/13/17 14:52 Colace - PO 100 mg TID JD Administration HCTZ/Losartan Potassium 2 tab 10/05/17 10:00 10/13/17 09:36 Hyzaar - PO 2 tab DAILY JD Administration Insulin Aspart 1 vial 10/12/17 07:00 10/13/17 16:59 Novolog Vial Sliding Scale - SQ 14 units ACHS JD Administration Protocol Insulin Detemir 50 units 10/12/17 07:00 10/13/17 07:02 Levemir Vial SQ 50 units AM JD Administration Insulin Detemir 27 units 10/12/17 22:00 10/12/17 22:34 Levemir Vial SQ 27 units HS JD Administration Levetiracetam 500 mg 10/05/17 10:00 10/13/17 09:36 Keppra - PO 500 mg BID JD Administration Levothyroxine Sodium 25 mcg 10/06/17 07:00 10/13/17 07:01 Synthroid - PO 25 mcg DAILY@0700 JD Administration Ondansetron HCl 4 mg 10/05/17 07:35 10/07/17 10:58 Zofran Injection IVPUSH 4 mg Q6H PRN Administration NAUSEA AND/OR VOMITING A/P Progressive brain metastatic disease , underlying breast cancer On HEr2 based single agent. TDM-1 Right parietal/occipital brain metastasis with surrounding edema and midline shift on MRI h/o gammaknife/ resection now progressive disease ? RT boost on 4mg Q 8h decadron with PPI Getting discharged to [facility]---to f/u with Dr. Kiser within 7 days d/c summary faxed to his office
== END 2017-10-13 21:26 | DRG 54 ==
LOC: JER 05:33 → JERBED 10:30 → JICU 11:46 → J5S 10-04 15:17
PROVIDERS: ADMIT Internal Medicine; ATTEND Internal Medicine
DX: C79.31 Secondary malignant neoplasm of brain (principal); G93.6 Cerebral edema; G92 Toxic encephalopathy; G93.41 Metabolic encephalopathy; G93.5 Compression of brain; N39.0 Urinary tract infection, site not specified; G81.90 Hemiplegia, unspecified affecting unspecified side; C50.919 Malignant neoplasm of unspecified site of unspecified female breast; E03.9 Hypothyroidism, unspecified; I10 Essential (primary) hypertension; E11.65 Type 2 diabetes mellitus with hyperglycemia; B96.1 Klebsiella pneumoniae [K. pneumoniae] as the cause of diseases classified elsewhere; R51 Headache; E11.40 Type 2 diabetes mellitus with diabetic neuropathy, unspecified; D70.1 Agranulocytosis secondary to cancer chemotherapy; T45.1X5A Adverse effect of antineoplastic and immunosuppressive drugs, initial encounter
CPT/HCPCS: 36415; 70450-TC; 70553-TC; 71045-TC-FY; 80048; 80053; 81003; 81015; 82550; 82947; 82962; 83036; 83735; 84100; 84439; 84443; 84481; 84484; 85025; 85027; 87086; 87186; 93005; 93010; 97116-GP; 97162-GP; 99285-25; J0131; J1100

== ENCOUNTER 2017-12-17 08:16 | Inpatient (IN) | payer OTHER ==
[2017-12-17] MEDS ORDERED: SODIUM CHLORIDE 1,000 ML IV STA (09:13)
[2017-12-17] MEDS ORDERED: ACETAMINOPHEN 1000 MG/100 ML VIAL (NON FORMULARY) IVPB ONE (09:14)
[2017-12-17] MEDS ORDERED: ACETAMINOPHEN INJECTION 100 ML IVPB ONE (09:24)
--- NOTE | 2017-12-17 09:24 | PDOC ---
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 Patient currently reports headache, left hip, and right leg pain x 2 weeks. She usually take tylenol for her headache which alleviates the pain. Family report that patient is at her mental status baseline and that there has been some difficulty with her care at home since her discharge from a rehabilitation facility two or three weeks ago. Denies fever/chills, abdominal pain, chest pain, shortness of breath. 12/17/17 09:24 <Emely Casarez - Last Filed: 12/18/17 07:20> - General Chief Complaint: Pain Stated Complaint: pain Time Seen by Provider: 12/17/17 08:24 Past History <Serina Narayan - Last Filed: 12/17/17 15:26> - Past Medical History Anemia: Yes Asthma: No Cancer: Yes (BREAST/BRAIN) Cardiac Disorders: No CVA: No COPD: No CHF: No Dementia: No Diabetes: Yes GI Disorders: No Disorders: No HTN: Yes Hypercholesterolemia: No Liver Disease: No Seizures: Yes Thyroid Disease: No - Surgical History Abdominal Surgery: No Appendectomy: No Cardiac Surgery: No Cholecystectomy: No Lung Surgery: No Neurologic Surgery: Yes (RIGHT PARIETAL CRANIECTOMY 2015 FOR TUMOR) Orthopedic Surgery: No - Immunization History Immunization Up to Date: Yes - Suicide/Smoking/Psychosocial Hx Smoking Status: No Smoking History: Never smoked Have you smoked in the past 12 months: No Number of Cigarettes Smoked Daily: 0 Information on smoking cessation initiated: No Hx Alcohol Use: No Drug/Substance Use Hx: No Substance Use Type: None Hx Substance Use Treatment: No <Emely Casarez - Last Filed: 12/18/17 07:20> - Past Medical History Allergies/Adverse Reactions: Allergies Allergy/AdvReac Type Severity Reaction Status Date / Time Iodinated Contrast- Oral and Allergy Verified 12/17/17 08:41 IV Dye oxycodone HCl [From Percocet] Allergy Verified 12/17/17 08:41 Home Medications: Ambulatory Orders Ferrous Sulfate 325 mg PO BID 03/22/16 Omeprazole 40 mg PO DAILY 11/01/16 Capecitabine 1,000 mg PO BID 12/16/16 Lapatinib Ditosylate [Tykerb] 1,250 mg PO DAILY 12/16/16 levETIRAcetam [Keppra -] 500 mg PO BID tablet 12/25/16 Lidocaine 5% Patch [Lidoderm -] 1 patch TP DAILY #7 patch 06/23/17 Losartan/Hydrochlorothiazide [Losartan-Hctz 100-25 mg Tab] 1 each PO DAILY 10/03 Acetaminophen [Tylenol .Regular Strength -] 650 mg PO Q6H PRN #90 tablet Amlodipine Besylate [Norvasc -] 5 mg PO DAILY #30 tablet 10/13/17 Dexamethasone [Decadron -] 4 mg PO TID #60 tablet 10/13/17 Docusate Sodium [Colace -] 100 mg PO TID #90 capsule 10/13/17 Insulin (Levemir) [Levemir Vial] 27 units SQ HS #1 ml 10/13/17 Insulin (Levemir) [Levemir Vial] 35 units SQ AM #1 ml 10/13/17 Insulin Sliding Scale [Novolog Vial Sliding Scale -] 1 vial SQ ACHS units 10/13 Levothyroxine [Synthroid -] 25 mcg PO DAILY@0700 #30 tablet 10/13/17 Review of Systems - Review of Systems Comments:: Constitutional: no fever, no chills HEENT: no throat pain, no dysphagia Cardiovascular: no chest pain, no palpitations Respiratory: no cough, no shortness of breath Gastrointestinal: no abdominal pain, no nausea, no vomiting, no diarrhea, no constipation Genitourinary: no dysuria, no frequency Musculoskeletal: +left hip pain, +right leg pain Skin: no rash, no itching Neurologic: +headache, no dizziness <Emely Casarez - Last Filed: 12/18/17 07:20> *Physical Exam - Vital Signs Last Vital Signs Temp Pulse Resp BP Pulse Ox 100.0 F H 100 H 20 150/92 95 12/17/17 09:46 12/17/17 08:38 12/17/17 08:38 12/17/17 08:38 12/17/17 08:57 <Serina Narayan - Last Filed: 12/17/17 15:26> - Vital Signs Last Vital Signs Temp Pulse Resp BP Pulse Ox 100 F H 100 H 20 150/92 95 12/17/17 08:38 12/17/17 08:38 12/17/17 08:38 12/17/17 08:38 12/17/17 08:57 - Physical Exam Comments: General: Awake, alert, and oriented x 2, in no acute distress Head: no signs of trauma Eyes: PERRL, EOMI, sclera anicteric ENT: moist mucus membranes, Neck: Normal ROM, supple, no lymphadenopathy Lungs: Lungs clear, Normal breath sounds Cardio: Regular rhythm, S1 and S2 present, no murmurs, rubs, or gallops Abdomen: Soft, nontender, normal bowel sounds. No guarding, no rebound, no masses Extremities: 1+ edema, Normal range of motion, No clubbing or cyanosis. No cords or tenderness SKIN: Warm, Dry, normal turgor, skin breakdown on buttocks Neurologic: Cranial nerves II through XII grossly intact. Normal speech <Emely Casarez - Last Filed: 12/18/17 07:20> ED Treatment Course - LABORATORY CBC & Chemistry Diagram: 12/17/17 10:30 12/17/17 10:30 - ADDITIONAL ORDERS Additional order review: Laboratory Results 12/17/17 12/17/17 12/17/17 13:30 11:00 11:00 PT with INR INR PTT (Actin FS) VBG pH POC VBG pCO2 POC VBG pO2 Mixed VBG HCO3 Sodium Potassium Chloride Carbon Dioxide Anion Gap BUN Creatinine Creat Clearance w eGFR Random Glucose Lactic Acid 1.5 2.0 2.4 H* Calcium Total Bilirubin AST ALT Alkaline Phosphatase Troponin I Total Protein Albumin Urine Color Urine Appearance Urine pH Ur Specific [place] Urine Protein Urine Glucose (UA) Urine Ketones Urine Blood Urine Nitrite Urine Bilirubin Urine Urobilinogen Ur Leukocyte Esterase Urine WBC (Auto) Urine RBC (Auto) Urine Bacteria Urine Mucus Urine Yeast 12/17/17 12/17/17 12/17/17 10:30 10:30 10:30 PT with INR INR PTT (Actin FS) VBG pH 7.42 POC VBG pCO2 49.1 D POC VBG pO2 26.7 L Mixed VBG HCO3 31.4 H Sodium 138 Potassium 3.5 Chloride 100 Carbon Dioxide 29 Anion Gap 9 BUN 11 Creatinine 0.7 Creat Clearance w eGFR > 60 Random Glucose 214 H Lactic Acid Calcium 9.2 Total Bilirubin 0.5 AST 22 ALT 36 Alkaline Phosphatase 159 H Troponin I < 0.02 Total Protein 6.9 Albumin 3.0 L Urine Color Urine Appearance Urine pH Ur Specific [place] Urine Protein Urine Glucose (UA) Urine Ketones Urine Blood Urine Nitrite Urine Bilirubin Urine Urobilinogen Ur Leukocyte Esterase Urine WBC (Auto) Urine RBC (Auto) Urine Bacteria Urine Mucus Urine Yeast 12/17/17 12/17/17 10:30 09:45 PT with INR 11.80 INR 1.04 PTT (Actin FS) 28.2 VBG pH POC VBG pCO2 POC VBG pO2 Mixed VBG HCO3 Sodium Potassium Chloride Carbon Dioxide Anion Gap BUN Creatinine Creat Clearance w eGFR Random Glucose Lactic Acid Calcium Total Bilirubin AST ALT Alkaline Phosphatase Troponin I Total Protein Albumin Urine Color Yellow Urine Appearance Cloudy Urine pH 5.0 Ur Specific [place] 1.020 Urine Protein 1+ H Urine Glucose (UA) 2+ H Urine Ketones Negative Urine Blood 2+ H Urine Nitrite Positive Urine Bilirubin Negative Urine Urobilinogen 2.0 H Ur Leukocyte Esterase 2+ H Urine WBC (Auto) 369 Urine RBC (Auto) 31 Urine Bacteria Many Urine Mucus Many Urine Yeast Few 12/17/17 10:30 RBC 5.27 H MCV 75.7 L MCHC 32.3 RDW 16.9 H MPV 8.3 D Neutrophils % 73.6 Lymphocytes % 17.1 D Monocytes % 7.9 Eosinophils % 0.8 D Basophils % 0.6 D - Medications Given in the ED: ED Medications Discontinued Medications Generic Name Dose Route Start Last Admin Trade Name Freq PRN Reason Stop Dose Admin Acetaminophen 1,000 mg 12/17/17 09:14 12/17/17 11:08 Ofirmev Injection - IVPB 12/17/17 09:15 1,000 mg ONCE ONE Administration Sodium Chloride 1,000 mls @ 1,000 mls/hr 12/17/17 09:13 12/17/17 11:08 Normal Saline - IV 12/17/17 10:12 1,000 mls/hr ASDIR STA Administration <Serina Narayan - Last Filed: 12/17/17 15:26> - LABORATORY CBC & Chemistry Diagram: 12/17/17 10:30 12/17/17 10:30 - RADIOLOGY Radiology Studies Ordered: Category Date Time Status CHEST X-RAY PORTABLE* [RAD] Stat Radiology 12/17/17 09:13 Ordered <Emely Casarez - Last Filed: 12/18/17 07:20> Medical Decision Making - Medical Decision Making Patient with fever 100 rectally, and HR 100. Ordered septic workup. 1L NS and tylenol given. Urinarlysis shows UTI. Vanc/Zosyn given. Spoke with inpatient team who will accept patient. Laboratory Tests 12/17/17 12/17/17 12/17/17 09:45 10:30 10:30 WBC 8.5 RBC 5.27 H Hgb 12.9 Hct 39.9 MCV 75.7 L MCH 24.5 L MCHC 32.3 RDW 16.9 H Plt Count 187 D MPV 8.3 D Absolute Neuts (auto) 6.3 Total Counted 100 Neutrophils % 73.6 Neutrophils % (Manual) 79.0 Band Neutrophils % 1.0 Lymphocytes % 17.1 D Lymphocytes % (Manual) 13.0 Monocytes % 7.9 Monocytes % (Manual) 6 Eosinophils % 0.8 D Eosinophils % (Manual) 1.0 Basophils % 0.6 D Basophils % (Manual) 0.0 Myelocytes % (Man) 0 Promyelocytes % (Man) 0 Blast Cells % (Manual) 0 Nucleated RBC % 0 Metamyelocytes 0 PT with INR 11.80 INR 1.04 PTT (Actin FS) 28.2 VBG pH POC VBG pCO2 POC VBG pO2 Mixed VBG HCO3 Sodium Potassium Chloride Carbon Dioxide Anion Gap BUN Creatinine Creat Clearance w eGFR Random Glucose Lactic Acid Calcium Total Bilirubin AST ALT Alkaline Phosphatase Troponin I Total Protein Albumin Urine Color Yellow Urine Appearance Cloudy Urine pH 5.0 Ur Specific [place] 1.020 Urine Protein 1+ H Urine Glucose (UA) 2+ H Urine Ketones Negative Urine Blood 2+ H Urine Nitrite Positive Urine Bilirubin Negative Urine Urobilinogen 2.0 H Ur Leukocyte Esterase 2+ H Urine WBC (Auto) 369 Urine RBC (Auto) 31 Urine Bacteria Many Urine Mucus Many Urine Yeast Few 12/17/17 12/17/17 12/17/17 10:30 10:30 10:30 WBC RBC Hgb Hct MCV MCH MCHC RDW Plt Count MPV Absolute Neuts (auto) Total Counted Neutrophils % Neutrophils % (Manual) Band Neutrophils % Lymphocytes % Lymphocytes % (Manual) Monocytes % Monocytes % (Manual) Eosinophils % Eosinophils % (Manual) Basophils % Basophils % (Manual) Myelocytes % (Man) Promyelocytes % (Man) Blast Cells % (Manual) Nucleated RBC % Metamyelocytes PT with INR INR PTT (Actin FS) VBG pH 7.42 POC VBG pCO2 49.1 D POC VBG pO2 26.7 L Mixed VBG HCO3 31.4 H Sodium 138 Potassium 3.5 Chloride 100 Carbon Dioxide 29 Anion Gap 9 BUN 11 Creatinine 0.7 Creat Clearance w eGFR > 60 Random Glucose 214 H Lactic Acid Calcium 9.2 Total Bilirubin 0.5 AST 22 ALT 36 Alkaline Phosphatase 159 H Troponin I < 0.02 Total Protein 6.9 Albumin 3.0 L Urine Color Urine Appearance Urine pH Ur Specific [place] Urine Protein Urine Glucose (UA) Urine Ketones Urine Blood Urine Nitrite Urine Bilirubin Urine Urobilinogen Ur Leukocyte Esterase Urine WBC (Auto) Urine RBC (Auto) Urine Bacteria Urine Mucus Urine Yeast 12/17/17 12/17/17 12/17/17 11:00 11:00 13:30 WBC RBC Hgb Hct MCV MCH MCHC RDW Plt Count MPV Absolute Neuts (auto) Total Counted Neutrophils % Neutrophils % (Manual) Band Neutrophils % Lymphocytes % Lymphocytes % (Manual) Monocytes % Monocytes % (Manual) Eosinophils % Eosinophils % (Manual) Basophils % Basophils % (Manual) Myelocytes % (Man) Promyelocytes % (Man) Blast Cells % (Manual) Nucleated RBC % Metamyelocytes PT with INR INR PTT (Actin FS) VBG pH POC VBG pCO2 POC VBG pO2 Mixed VBG HCO3 Sodium Potassium Chloride Carbon Dioxide Anion Gap BUN Creatinine Creat Clearance w eGFR Random Glucose Lactic Acid 2.4 H* 2.0 1.5 Calcium Total Bilirubin AST ALT Alkaline Phosphatase Troponin I Total Protein Albumin Urine Color Urine Appearance Urine pH Ur Specific [place] Urine Protein Urine Glucose (UA) Urine Ketones Urine Blood Urine Nitrite Urine Bilirubin Urine Urobilinogen Ur Leukocyte Esterase Urine WBC (Auto) Urine RBC (Auto) Urine Bacteria Urine Mucus Urine Yeast <Emely Casarez - Last Filed: 12/18/17 07:20> *DC/Admit/Observation/Transfer <Serina Narayan - Last Filed: 12/17/17 15:26> - Discharge Dispostion Decision to Admit order: Yes <Emely Casarez - Last Filed: 12/18/17 07:20> Diagnosis at time of Disposition: Sepsis Qualifiers: Sepsis type: sepsis due to unspecified organism Qualified Code(s): A41.9 - Sepsis, unspecified organism - Discharge Dispostion Condition at time of disposition: Stable
[2017-12-17 10:27] LABS: URINE APPEARANCE CLOUDY; URINE BILIRUBIN NEGATIVE (<2.0 mg/dL); URINE GLUCOSE (UA) 2+ (NEGATIVE); URINE KETONE NEGATIVE (NEGATIVE); URINE NITRITE POSITIVE (NEGATIVE)
[2017-12-17 10:36] LABS: URINE COLOR YELLOW; URINE LEUK ESTERASE 2+ (NEGATIVE); URINE PROTEIN 1+ (NEGATIVE)
[2017-12-17 10:39] LABS: URINE BACTERIA MANY /hpf (NONE SEEN); URINE MUCUS MANY; YEAST FEW
[2017-12-17 10:51] LABS: BASO % 0.6 % (0-2.0); EOS % 0.8 % (0-4.5); HEMATOCRIT 39.9 % (32.4-45.2); HEMOGLOBIN 12.9 GM/dL (10.7-15.3); LYMPH % 17.1 % (8-40); MCH 24.5 pg (25.7-33.7); MCHC 32.3 g/dl (32.0-36.0); MEAN CELL VOLUME 75.7 fl (80-96); MEAN PLT VOLUME 8.3 fl (7.5-11.1); MONO % 7.9 % (3.8-10.2); NEUT % 73.6 % (42.8-82.8); PLATELET COUNT 187 K/MM3 (134-434); RBC 5.27 M/mm3 (3.60-5.2); RDW 16.9 % (11.6-15.6); WHITE BLOOD COUNT 8.5 K/mm3 (4.0-10.0)
[2017-12-17 11:06] LABS: VENOUS PC02 49.1 mmHg (38-52); VENOUS PH 7.42 (7.32-7.42); VENOUS PO2 26.7 mmHg (28-48)
[2017-12-17 11:14] LABS: INR 1.04 (0.82-1.09); PROTHROMBIN TIME (PATIENT) 11.8 SEC (9.7-13.0)
[2017-12-17 11:17] LABS: ACTIVATED PTT 28.2 SECONDS (25.2-36.5)
[2017-12-17 11:21] LABS: ANION GAP 9 (8-16); BLOOD UREA NITROGEN 11 mg/dL (7-18); CALCIUM 9.2 mg/dL (8.5-10.1); CHLORIDE 100 mmol/L (98-107); CO2 29 mmol/L (21-32); CREATININE 0.7 mg/dL (0.55-1.02); GLUCOSE,RANDOM 214 mg/dL (74-106); POTASSIUM 3.5 mmol/L (3.5-5.1); SGOT/AST 22 U/L (15-37); SGPT/ALT 36 U/L (12-78); SODIUM 138 mmol/L (136-145)
[2017-12-17 11:23] LABS: ALK PHOS 159 U/L (45-117); BILIRUBIN,TOTAL 0.5 mg/dL (0.2-1.0); TOT PROT 6.9 g/dl (6.4-8.2)
--- NOTE | 2017-12-17 14:43 | PDOC ---
Attending Attestation - Resident Resident Name: Emely Casarez - ED Attending Attestation I have performed the following: I have examined & evaluated the patient, The case was reviewed & discussed with the resident, I agree w/resident's findings & plan, Exceptions are as noted - HPI HPI: 12/17/17 13:43 "The patient is a 57-year-old female, with a past medical history of metastatic breast carcinoma with mets s/p mastectomy (last chemo treatment was 3 months ago ), HTN, and diabetes, who presents to the ED with right leg pain, left hip pain and headache. These symptoms are chronic per pt and family member. However, the family is concerned because they do not feel that the pt is receiving adequate care at home. She currently has visiting nurse for a few hours a day, but the family is unable to care for her themselves during the hours that she is not there. Pt has developed rash in her groin from not being bathed properly. The patient denies any fever, chills, nausea, vomiting, diarrhea, and abdominal pain. The patient denies any shortness of breath or chest pain. The patient denies any lightheadedness or weakness. Allergies: Iodinated Contrast - Oral and IV dye, oxycodone HCl Surgical History: Mastectomy, Social History: None reported. PCP: Dr. Bakari Pool " - Physicial Exam PE: 12/17/17 14:43 "GENERAL: Awake, alert, in no acute distress. HEAD: No signs of trauma EYES: PERRLA, EOMI, sclera anicteric, conjunctiva clear ENT: Auricles normal inspection, hearing grossly normal, nares patent, oropharynx clear without exudates. Moist mucosa NECK: Nontender, no stepoffs, Normal ROM, supple, no lymphadenopathy, JVD, or masses LUNGS: Breath sounds equal, clear to auscultation bilaterally. No wheezes, and no crackles HEART: Regular rate and rhythm, normal S1 and S2, no murmurs, rubs or gallops ABDOMEN: Soft, nontender, normoactive bowel sounds. No guarding, no rebound. No masses EXTREMITIES: Normal range of motion, no edema. No clubbing or cyanosis. No cords, erythema, or tenderness NEUROLOGICAL: Cranial nerves II through XII intact. 5/5 strength and sensation in all extremities, Normal speech, normal gait, normal cerebellar function SKIN: Warm, Dry, normal turgor, no rashes or lesions noted. " - Medical Decision Making 12/17/17 14:45 57 F with chronic headache, and body pains, found to have low-grade temp 100 and tachycardia in ED. Will evaluate for sepsis. Suspect UTI. - Labs, cultures - CXR, UA - CT head given h/o metastatic breast CA
[2017-12-17] MEDS ORDERED: VANCOMYCIN 1,250 MG in DEXTROSE 5%-WATER - 250 ML IVPB ONE (14:48)
[2017-12-17] MEDS ORDERED: PIPERACILLIN/TAZOB 4.5 GM 4.5 GM/100 ML BAG IVPB ONE ×2 (14:49→19:42)
[2017-12-17] MEDS ORDERED: PIPERACILLIN/TAZOB 3.375 GM 3.375 GM/50 ML BAG IVPB ONE (15:48)
--- NOTE | 2017-12-17 16:44 | HP ---
CHIEF COMPLAINT: weakness, headaches PCP:: Dr. Bakari Pool HISTORY OF PRESENT ILLNESS: Patient is a 57 year old female with a significant past medical history of breast cancer with metastatic disease to the brain with treatment with sterotactic RT, right parietal craniotomy for brain tumor. Her other history includes diabetes mellitus, hypothyroidism, vasogenic cerebral edema, hypertension and UTIs. She is brought into the ED today for headaches, left hip discomfort and right leg pain. No trauma or injury reported. Patient states that she has a headache that is persistent and slightly worse today. As per ED signout, patient family is concerned over patient's care needs are not met in the home. Patient noted to have redness and mild excoriated skin on her groin that was thought to be due to inadequate home services. Patient is awake and answering questions appropriately. In the ED she was noted to have a UTI seen on UA. Patient is immunocompromised secondary to her advanced cancer diagnosis and steroid therapy. She is also a diabetic. In the ED she was given Vanco and Zosyn. Her blood and urine cultures are pending. The patient denies any fever, chills, nausea, vomiting, diarrhea, and abdominal pain. No chest pain or shortness of breath. ER course was notable for: (1) + UA (2) head CT: in comparison to a prior CT of 10/08/2017, not is made of diminished edema involving the right cerebral hemisphere diffusely with associated diminished contralateral midline shift. (3) chest xray, no acute process. PAST SURGICAL HISTORY: Mastectomy, Social History: Smoking: n/a Alcohol: n/a Drugs: n/a Family History: Allergies Iodinated Contrast- Oral and IV Dye Allergy (Verified 12/17/17 08:41) oxycodone HCl [From Percocet] Allergy (Verified 12/17/17 08:41) HOME MEDICATIONS: Home Medications Medication Instructions Recorded Ferrous Sulfate 325 mg PO BID 03/22/16 Omeprazole 40 mg PO DAILY 03/22/16 Capecitabine 1,000 mg PO BID 12/16/16 Lapatinib Ditosylate [Tykerb] 1,250 mg PO DAILY 12/16/16 levETIRAcetam [Keppra -] 500 mg PO BID tablet 12/25/16 Lidocaine 5% Patch [Lidoderm -] 1 patch TP DAILY #7 patch 06/23/17 Losartan/Hydrochlorothiazide 1 each PO DAILY 10/03/17 [Losartan-Hctz 100-25 mg Tab] Acetaminophen [Tylenol .Regular 650 mg PO Q6H PRN #90 tablet 10/13/17 Strength -] Amlodipine Besylate [Norvasc -] 5 mg PO DAILY #30 tablet 10/13/17 Dexamethasone [Decadron -] 4 mg PO TID #60 tablet 10/13/17 Docusate Sodium [Colace -] 100 mg PO TID #90 capsule 10/13/17 Insulin (Levemir) [Levemir Vial] 27 units SQ HS #1 ml 10/13/17 Insulin (Levemir) [Levemir Vial] 35 units SQ AM #1 ml 10/13/17 Insulin Sliding Scale [Novolog 1 vial SQ ACHS units 10/13/17 Vial Sliding Scale -] Levothyroxine [Synthroid -] 25 mcg PO DAILY@0700 #30 tablet 10/13/17 PHYSICAL EXAMINATION Vital Signs - 24 hr 12/17/17 12/17/17 12/17/17 08:38 08:57 09:46 Temperature 100 F H 100.0 F H Pulse Rate 100 H Pulse Rate [ Right] Respiratory 20 Rate Blood Pressure 150/92 Blood Pressure [Left Arm] O2 Sat by Pulse 95 95 Oximetry (%) 12/17/17 15:59 Temperature 98.6 F Pulse Rate Pulse Rate [ 83 Right] Respiratory 18 Rate Blood Pressure Blood Pressure 123/78 [Left Arm] O2 Sat by Pulse 96 Oximetry (%) GENERAL: Awake, lethargic, answering questions appropriately, in no acute distress HEAD: Normal with no signs of trauma, intermittent headaches EYES: Pupils equal, round and reactive to light, extraocular movements intact, sclera anicteric, denies visual defects EARS, NOSE, THROAT: dry mucous membranes. NECK: Normal range of motion, supple without lymphadenopathy, JVD, or masses. LUNGS: Breath sounds equal, clear to auscultation bilaterally HEART: Regular rate and rhythm ABDOMEN: Soft, mildly distended, + bowel sounds MUSCULOSKELETAL: No CVA tenderness. UPPER EXTREMITIES: No peripheral edema. LOWER EXTREMITIES: No peripheral edema, + pulses, bilateral feet cool to touch but has +dorsal pedal pulses, no discoloration, no edema NEUROLOGICAL: Normal speech. Normal gait. PSYCHIATRIC: Cooperative. calm, lethargic Laboratory Results - last 24 hr 12/17/17 12/17/17 12/17/17 09:45 10:30 10:30 WBC 8.5 RBC 5.27 H Hgb 12.9 Hct 39.9 MCV 75.7 L MCH 24.5 L MCHC 32.3 RDW 16.9 H Plt Count 187 D MPV 8.3 D Absolute Neuts (auto) 6.3 Total Counted 100 Neutrophils % 73.6 Neutrophils % (Manual) 79.0 Band Neutrophils % 1.0 Lymphocytes % 17.1 D Lymphocytes % (Manual) 13.0 Monocytes % 7.9 Monocytes % (Manual) 6 Eosinophils % 0.8 D Eosinophils % (Manual) 1.0 Basophils % 0.6 D Basophils % (Manual) 0.0 Myelocytes % (Man) 0 Promyelocytes % (Man) 0 Blast Cells % (Manual) 0 Nucleated RBC % 0 Metamyelocytes 0 PT with INR 11.80 INR 1.04 PTT (Actin FS) 28.2 VBG pH POC VBG pCO2 POC VBG pO2 Mixed VBG HCO3 Sodium Potassium Chloride Carbon Dioxide Anion Gap BUN Creatinine Creat Clearance w eGFR Random Glucose Lactic Acid Calcium Total Bilirubin AST ALT Alkaline Phosphatase Troponin I Total Protein Albumin Urine Color Yellow Urine Appearance Cloudy Urine pH 5.0 Ur Specific [place] 1.020 Urine Protein 1+ H Urine Glucose (UA) 2+ H Urine Ketones Negative Urine Blood 2+ H Urine Nitrite Positive Urine Bilirubin Negative Urine Urobilinogen 2.0 H Ur Leukocyte Esterase 2+ H Urine WBC (Auto) 369 Urine RBC (Auto) 31 Urine Bacteria Many Urine Mucus Many Urine Yeast Few 12/17/17 12/17/17 12/17/17 10:30 10:30 10:30 WBC RBC Hgb Hct MCV MCH MCHC RDW Plt Count MPV Absolute Neuts (auto) Total Counted Neutrophils % Neutrophils % (Manual) Band Neutrophils % Lymphocytes % Lymphocytes % (Manual) Monocytes % Monocytes % (Manual) Eosinophils % Eosinophils % (Manual) Basophils % Basophils % (Manual) Myelocytes % (Man) Promyelocytes % (Man) Blast Cells % (Manual) Nucleated RBC % Metamyelocytes PT with INR INR PTT (Actin FS) VBG pH 7.42 POC VBG pCO2 49.1 D POC VBG pO2 26.7 L Mixed VBG HCO3 31.4 H Sodium 138 Potassium 3.5 Chloride 100 Carbon Dioxide 29 Anion Gap 9 BUN 11 Creatinine 0.7 Creat Clearance w eGFR > 60 Random Glucose 214 H Lactic Acid Calcium 9.2 Total Bilirubin 0.5 AST 22 ALT 36 Alkaline Phosphatase 159 H Troponin I < 0.02 Total Protein 6.9 Albumin 3.0 L Urine Color Urine Appearance Urine pH Ur Specific [place] Urine Protein Urine Glucose (UA) Urine Ketones Urine Blood Urine Nitrite Urine Bilirubin Urine Urobilinogen Ur Leukocyte Esterase Urine WBC (Auto) Urine RBC (Auto) Urine Bacteria Urine Mucus Urine Yeast 12/17/17 12/17/17 12/17/17 11:00 11:00 13:30 WBC RBC Hgb Hct MCV MCH MCHC RDW Plt Count MPV Absolute Neuts (auto) Total Counted Neutrophils % Neutrophils % (Manual) Band Neutrophils % Lymphocytes % Lymphocytes % (Manual) Monocytes % Monocytes % (Manual) Eosinophils % Eosinophils % (Manual) Basophils % Basophils % (Manual) Myelocytes % (Man) Promyelocytes % (Man) Blast Cells % (Manual) Nucleated RBC % Metamyelocytes PT with INR INR PTT (Actin FS) VBG pH POC VBG pCO2 POC VBG pO2 Mixed VBG HCO3 Sodium Potassium Chloride Carbon Dioxide Anion Gap BUN Creatinine Creat Clearance w eGFR Random Glucose Lactic Acid 2.4 H* 2.0 1.5 Calcium Total Bilirubin AST ALT Alkaline Phosphatase Troponin I Total Protein Albumin Urine Color Urine Appearance Urine pH Ur Specific [place] Urine Protein Urine Glucose (UA) Urine Ketones Urine Blood Urine Nitrite Urine Bilirubin Urine Urobilinogen Ur Leukocyte Esterase Urine WBC (Auto) Urine RBC (Auto) Urine Bacteria Urine Mucus Urine Yeast ASSESSMENT/PLAN: Patient is a 57 year old female with a significant past medical history of breast cancer with metastatic disease to the brain with treatment with sterotactic RT, right parietal craniotomy for brain tumor. Her other history includes diabetes mellitus, hypothyroidism, vasogenic cerebral edema, hypertension and UTIs. She is brought into the ED today for headaches, left hip discomfort and right leg pain. Pt admitted because of headache and increased weakness and now having some bilateral lower ext discomfort and weakness. Head CT on admission shows diminished edema involving the right cerebral hemisphere diffusely with associated diminished contralateral midline shift. Patient is on home decadron. Oncology: Metastatic brain cancer Patient is s/p right parietal crainiotomy. Head CT done today with diminished edema and associated diminished contralateral midline shift. Continue decadron TID as ordered. She is on Keppra BID for seizure prevention. Tylenol for headaches. Patient has oral chemo listed which is NF here, will consult oncology. MS: Lower extremity pain/discomfort: No signs of trauma or injury. Notable lower ext are cool to touch but with + bilateral lower ext pulses. No discoloration or edema. Will order arterial doppler. ID/UTI: Patient does not meet sepsis criteria, however due to her immunocompromised state and history of diabetes, will consult ID and treat her as such. She had mild lactic acid on admission which is now resolved. She was given Vanco and Zosyn in the ED. Urine and blood cultures are pending. Card: Hypothyroidism, on Synthroid Hypertension: continue home meds of amlodopine, Lorsartan, hctz Endocrine: Diabetes: Novolog SS and Levemir BID fen encourage PO intake monitor electrolytes diabetic diet prophy: SCDs, physical therapy Visit type - Emergency Visit Emergency Visit: Yes Care time: The patient presented to the Emergency Department on the above date and was hospitalized for further evaluation of their emergent condition. - New Patient This patient is new to me today: Yes Date on this admission: 12/17/17 - Critical Care Critical Care patient: No Hospitalist Screening - Colonoscopy Questionnaire Colonoscopy Questionnaire: Colonoscopy Questionnaire - Patient: 50 - 75 years old and never had a screening colonoscopy: Unknown History of colon or rectal polyps, or CA: Unknown History of IBD, Crohn's disease or UC: Unknown History of abdominal radiation therapy as a child: Unknown - Relative: 1 with colon or rectal CA, or polyps at age 60 or younger: Unknown Colon or rectal CA diagnosed at age 45 or younger: Unknown Multiple relatives with colon or rectal CA: Unknown - Outcome: Screening Result: Negative Screen
[2017-12-17] MEDS ORDERED: CAPECITABINE 500 MG TABLET PO SCH (22:00)
[2017-12-17] MEDS ORDERED: INSULIN (NOVOLOG) ASPART 100 UNITS/ML 10ML VIAL ONE (23:28)
[2017-12-17] MEDS: levETIRAcetam 500 MG TABLET (FP) PO SCH (23:34)
[2017-12-17] MEDS: INSULIN (LEVEMIR) 100 UNITS/ML UNITS SQ SCH (23:34)
[2017-12-17] MEDS: DOCUSATE SODIUM 100 MG CAPSULE (FP) PO SCH (23:34)
[2017-12-17] MEDS: DEXAMETHASONE 4 MG TABLET (FP) PO SCH (23:34)
[2017-12-17] MEDS: INSULIN SLIDING SCALE (NOVOLOG) 1 VIAL SQ SCH (23:35)
[2017-12-17 23:54] VITALS: BMI 33.3
[2017-12-18] MEDS: DOCUSATE SODIUM 100 MG CAPSULE (FP) PO SCH ×3 (06:12→21:28)
[2017-12-18] MEDS: DEXAMETHASONE 4 MG TABLET (FP) PO SCH ×3 (06:12→21:28)
[2017-12-18] MEDS: LEVOTHYROXINE NA 25 MCG TABLET (FP) PO SCH (06:12)
[2017-12-18] MEDS: INSULIN (LEVEMIR) 100 UNITS/ML UNITS SQ SCH ×2 (06:37→21:36)
[2017-12-18] MEDS: INSULIN SLIDING SCALE (NOVOLOG) 1 VIAL SQ SCH ×4 (06:41→21:35)
[2017-12-18 07:22] LABS: HEMATOCRIT 35.6 % (32.4-45.2); HEMOGLOBIN 11.7 GM/dL (10.7-15.3); MCH 24.6 pg (25.7-33.7); MCHC 32.7 g/dl (32.0-36.0); MEAN CELL VOLUME 75.2 fl (80-96); MEAN PLT VOLUME 8.2 fl (7.5-11.1); PLATELET COUNT 172 K/MM3 (134-434); RBC 4.74 M/mm3 (3.60-5.2); RDW 17.2 % (11.6-15.6)
[2017-12-18 07:57] LABS: ALBUMIN 2.6 g/dl (3.4-5.0); ANION GAP 6 (8-16); BLOOD UREA NITROGEN 11 mg/dL (7-18); CHLORIDE 107 mmol/L (98-107); CO2 29 mmol/L (21-32); GLUCOSE,RANDOM 256 mg/dL (74-106); MAGNESIUM 1.9 mg/dL (1.8-2.4); POTASSIUM 3.7 mmol/L (3.5-5.1); SODIUM 142 mmol/L (136-145)
[2017-12-18 08:02] LABS: ALK PHOS 118 U/L (45-117); BILIRUBIN,TOTAL 0.3 mg/dL (0.2-1.0); CREATININE 0.5 mg/dL (0.55-1.02); SGOT/AST 16 U/L (15-37); SGPT/ALT 30 U/L (12-78)
[2017-12-18] MEDS: HYDROCHLOROTHIAZIDE 25 MG TABLET (FP) PO SCH (09:35)
[2017-12-18] MEDS: amLODIPine BESYLATE 5 MG TABLET (FP) PO SCH (09:35)
[2017-12-18] MEDS: FERROUS SO4 325 MG TABLET (FP) PO SCH ×2 (09:35→17:59)
[2017-12-18] MEDS: levETIRAcetam 500 MG TABLET (FP) PO SCH ×2 (09:35→21:28)
[2017-12-18] MEDS ORDERED: LOSARTAN POTASSIUM 100 MG TABLET PO SCH (10:00)
[2017-12-18] MEDS ORDERED: PATIENT'S OWN MEDICATION (NON-FORMULARY) (Losartan/Hydrochlorothiazide [Losartan-Hctz 100- PO SCH (10:00)
--- NOTE | 2017-12-18 10:22 | EKG ---
Test Reason : Blood Pressure : / mmHG Vent. Rate : 088 BPM Atrial Rate : 088 BPM P-R Int : 170 ms QRS Dur : 082 ms QT Int : 366 ms P-R-T Axes : 047 019 043 degrees QTc Int : 442 ms NORMAL SINUS RHYTHM POSSIBLE LEFT ATRIAL ENLARGEMENT BORDERLINE ECG WHEN COMPARED WITH ECG OF 03-OCT-2017 07:04, NO SIGNIFICANT CHANGE WAS FOUND Confirmed by ABDI FOURNIER MD ([id number]) on 12/18/2017 10:21:32 AM Referred By: Confirmed By:ABDI FOURNIER MD
[2017-12-18] MEDS ORDERED: INSULIN (NOVOLOG) ASPART 100 UNITS/ML 10ML VIAL ONE (11:42)
--- NOTE | 2017-12-18 12:00 | CON.ID ---
Consult Consult Specialty:: infectious diseases Reason for Consultation:: uti - History of Present Illness History of Present Illness: 57 year old female with a significant past medical history of breast cancer with metastatic disease to the brain with treatment with sterotactic RT, right parietal craniotomy for brain tumor. Her other history includes diabetes mellitus, hypothyroidism, vasogenic cerebral edema, hypertension and UTIs. patient came to the ed because of left hip discomfort and right leg pain Patient noted to have redness and mild excoriated skin on her groin that was thought to be due to inadequate home services. patient mentions that her sugars have been going high lately and it seems she was on abx for uti for more than a week patient was worked up and found to have uti she did receive abx on admission currently family in the room and discussed - History Source History Provided By: Patient, Family Member Limitations to Obtaining History: No Limitations - Past Medical History [employer]: Yes: Other ([employer] mets in 2015- treated with stereotactic RT) Cardio/Vascular: Yes: HTN ...: No Endocrine: Yes: Diabetes Mellitus - Past Surgical History Past Surgical History: Yes: Breast Biopsy, - Alcohol/Substance Use Hx Alcohol Use: No History of Substance Use: reports: None - Smoking History Smoking history: Never smoked Have you smoked in the past 12 months: No Aproximately how many cigarettes per day: 0 - Social History Usual Living Arrangement: With Spouse ADL: Support Services 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 History of Recent Travel: No Home Medications - Allergies Allergies/Adverse Reactions: Allergies Allergy/AdvReac Type Severity Reaction Status Date / Time Iodinated Contrast- Oral and Allergy Verified 12/17/17 08:41 IV Dye oxycodone HCl [From Percocet] Allergy Verified 12/17/17 08:41 - Home Medications Home Medications: Ambulatory Orders Ferrous Sulfate 325 mg PO BID 03/22/16 Omeprazole 40 mg PO DAILY 03/22/16 Capecitabine 1,000 mg PO BID 12/16/16 Lapatinib Ditosylate [Tykerb] 1,250 mg PO DAILY 12/16/16 levETIRAcetam [Keppra -] 500 mg PO BID tablet 12/25/16 Lidocaine 5% Patch [Lidoderm -] 1 patch TP DAILY #7 patch 06/23/17 Losartan/Hydrochlorothiazide [Losartan-Hctz 100-25 mg Tab] 1 each PO DAILY 10/03 Acetaminophen [Tylenol .Regular Strength -] 650 mg PO Q6H PRN #90 tablet Amlodipine Besylate [Norvasc -] 5 mg PO DAILY #30 tablet 10/13/17 Dexamethasone [Decadron -] 4 mg PO TID #60 tablet 10/13/17 Docusate Sodium [Colace -] 100 mg PO TID #90 capsule 10/13/17 Insulin (Levemir) [Levemir Vial] 27 units SQ HS #1 ml 10/13/17 Insulin (Levemir) [Levemir Vial] 35 units SQ AM #1 ml 10/13/17 Insulin Sliding Scale [Novolog Vial Sliding Scale -] 1 vial SQ ACHS units 10/13 Levothyroxine [Synthroid -] 25 mcg PO DAILY@0700 #30 tablet 10/13/17 Family Disease History - Family Disease History Family Disease History: Other: Grandparent (asthma), Father ( of unknown cause), Mother (htn), Brother (3B healthy and living), Sister (4S healthy and living) Review of Systems - Review of Systems Constitutional: reports: No Symptoms Eyes: reports: No Symptoms HENT: reports: No Symptoms Neck: reports: No Symptoms Cardiovascular: reports: No Symptoms Respiratory: reports: No Symptoms Gastrointestinal: reports: No Symptoms Genitourinary: reports: No Symptoms Integumentary: reports: Erythema Neurological: reports: No Symptoms Endocrine: reports: No Symptoms Hematology/Lymphatic: reports: No Symptoms Psychiatric: reports: No Symptoms Physical Exam Vital Signs: Vital Signs Temperature 98.9 F 12/18/17 09:36 Pulse Rate 85 12/18/17 09:36 Respiratory Rate 16 12/18/17 09:36 Blood Pressure 137/90 12/18/17 09:36 O2 Sat by Pulse Oximetry (%) 96 12/17/17 23:01 Constitutional: Yes: No Distress, Calm, Obese HENT: Yes: Atraumatic Cardiovascular: Yes: Regular Rate and Rhythm Respiratory: Yes: Regular, CTA Bilaterally Gastrointestinal: Yes: Normal Bowel Sounds, Soft Musculoskeletal: Yes: Other Extremities: Yes: Other Neurological: Yes: Alert, Oriented Psychiatric: Yes: Alert, Oriented Labs: CBC, BMP 12/18/17 07:05 12/18/17 07:05 Imaging - Results Chest X-ray: Report Reviewed, Image Reviewed Cat Scan: Report Reviewed, Image Reviewed Ultrasound: Report Reviewed, Image Reviewed Assessment/Plan Patient is a 57 year old female with a significant past medical history of breast cancer with metastatic disease to the brain with treatment with sterotactic RT, right parietal craniotomy for brain tumor. Her other history includes diabetes mellitus, hypothyroidism, vasogenic cerebral edema, hypertension and UTIs. She is brought into the ED today for headaches, left hip discomfort and right leg pain. Pt admitted because of headache and increased weakness and now having some bilateral lower ext discomfort and weakness. Head CT on admission shows diminished edema involving the right cerebral hemisphere diffusely with associated diminished contralateral midline shift. Patient is on home decadron. Metastatic brain cancer Lower extremity pain/discomfort: uti Hypothyroidism, Hypertension dm plan' continue current mgmt cx report noted will start patient on ceftriaxone await for identification of the organism nutrition rest as per the team
[2017-12-18] MEDS ORDERED: cefTRIAXone SODIUM 1 GM VIAL ONE (12:25)
[2017-12-18] MEDS ORDERED: DEXTROSE 5%-WATER - 50 ML IVPB ONE (12:25)
[2017-12-18] MEDS: CEFTRIAXONE 1 GM in DEXTROSE 5%-WATER - 50 ML IVPB SCH (12:36)
[2017-12-18] MEDS: LOSARTAN POTASSIUM 50 MG TABLET (FP) PO SCH (15:44)
[2017-12-18] MEDS: MORPHINE SULFATE 2 MG/ML VIAL IVPUSH PRN (21:28)
--- NOTE | 2017-12-18 22:19 | PN ---
Progress Note, Physician History of Present Illness: Pt is lethargic - Current Medication List Current Medications: Active Medications Amlodipine Besylate (Norvasc -) 5 mg PO DAILY [facility] Last Admin: 12/18/17 09:35 Dose: 5 mg Dexamethasone (Decadron -) 4 mg PO TID [facility] Last Admin: 12/18/17 21:28 Dose: 4 mg Docusate Sodium (Colace -) 100 mg PO TID [facility] Last Admin: 12/18/17 21:28 Dose: 100 mg Ferrous Sulfate (Feosol -) 325 mg PO BIDWM [facility] Last Admin: 12/18/17 17:59 Dose: 325 mg Hydrochlorothiazide (Hctz -) 25 mg PO DAILY [facility] Last Admin: 12/18/17 09:35 Dose: 25 mg Ceftriaxone Sodium 1 gm/ (Dextrose) 50 mls @ 200 mls/hr IVPB DAILY [facility]; Protocol Last Admin: 12/18/17 12:36 Dose: 200 mls/hr Insulin Aspart (Novolog Vial Sliding Scale -) 1 vial SQ ACHS [facility]; Protocol Last Admin: 12/18/17 21:35 Dose: 8 units Insulin Detemir (Levemir Vial) 27 units SQ HS [facility] Last Admin: 12/18/17 21:36 Dose: 27 units Insulin Detemir (Levemir Vial) 35 units SQ AM [facility] Last Admin: 12/18/17 06:37 Dose: 35 units Levetiracetam (Keppra -) 500 mg PO BID [facility] Last Admin: 12/18/17 21:28 Dose: 500 mg Levothyroxine Sodium (Synthroid -) 25 mcg PO DAILY@0700 [facility] Last Admin: 12/18/17 06:12 Dose: 25 mcg Losartan Potassium (Cozaar -) 100 mg PO DAILY [facility] Last Admin: 12/18/17 15:44 Dose: 100 mg Morphine Sulfate (Morphine Sulfate) 2 mg IVPUSH Q6H PRN PRN Reason: PAIN LEVEL 6-10 Last Admin: 12/18/17 21:28 Dose: 2 mg - Objective Vital Signs: Vital Signs Temperature 98.1 F 12/18/17 19:44 Pulse Rate 889 H 12/18/17 19:44 Respiratory Rate 18 12/18/17 19:44 Blood Pressure 126/80 12/18/17 19:44 O2 Sat by Pulse Oximetry (%) 96 12/17/17 23:01 Neck: Yes: WNL, Supple Cardiovascular: Yes: WNL, Regular Rate and Rhythm Respiratory: Yes: WNL, Regular, CTA Bilaterally Gastrointestinal: Yes: WNL, Normal Bowel Sounds, Soft Labs: CBC, BMP 12/18/17 07:05 12/18/17 07:05 INR, PTT INR 1.04 (0.82-1.09) 12/17/17 10:30 Problem List - Problems (1) Sepsis Code(s): A41.9 - SEPSIS, UNSPECIFIED ORGANISM Qualifiers: Sepsis type: sepsis due to unspecified organism Qualified Code(s): A41.9 - Sepsis, unspecified organism (2) Anemia Code(s): D64.9 - ANEMIA, UNSPECIFIED Qualifiers: Anemia type: unspecified type Qualified Code(s): D64.9 - Anemia, unspecified (3) Breast CA Code(s): C50.919 - MALIGNANT NEOPLASM OF UNSP SITE OF UNSPECIFIED FEMALE BREAST Qualifiers: Breast location: overlapping sites of breast Laterality: right (4) Cerebral edema Code(s): G93.6 - CEREBRAL EDEMA (5) Diabetes Code(s): E11.9 - TYPE 2 DIABETES MELLITUS WITHOUT COMPLICATIONS Qualifiers: Diabetes mellitus type: type 2 Diabetes mellitus complication status: without complication (6) Generalized weakness Code(s): R53.1 - WEAKNESS (7) Hypertension Code(s): I10 - ESSENTIAL (PRIMARY) HYPERTENSION (8) Hypothyroidism Code(s): E03.9 - HYPOTHYROIDISM, UNSPECIFIED
--- NOTE | 2017-12-18 23:41 | CONSULT ---
Consult - text type - Consultation Consultation Note: Patient is a 57 year old female with a significant past medical history of breast cancer with metastatic disease to the brain with treatment with sterotactic RT, right parietal craniotomy for brain tumor. Her other history includes diabetes mellitus, hypothyroidism, hypertension and UTIs. She is brought into the ED today for headaches, left hip discomfort and right leg pain. She was recently discharged from [facility]. As per ED notes, patient family is concerned over patient's care needs are not met in the home. Patient is awake and answering questions appropriately. The patient denies any fever, chills, nausea, vomiting, diarrhea, and abdominal pain. No chest pain or shortness of breath. Allergies Iodinated Contrast- Oral and IV Dye Allergy (Verified 12/17/17 08:41) oxycodone HCl [From Percocet] Allergy (Verified 12/17/17 08:41) HOME MEDICATIONS: Home Medications Medication Instructions Recorded Ferrous Sulfate 325 mg PO BID 03/22/16 Omeprazole 40 mg PO DAILY 03/22/16 Capecitabine 1,000 mg PO BID 12/16/16 Lapatinib Ditosylate [Tykerb] 1,250 mg PO DAILY 12/16/16 levETIRAcetam [Keppra -] 500 mg PO BID tablet 12/25/16 Lidocaine 5% Patch [Lidoderm -] 1 patch TP DAILY #7 patch 06/23/17 Losartan/Hydrochlorothiazide 1 each PO DAILY 10/03/17 [Losartan-Hctz 100-25 mg Tab] Acetaminophen [Tylenol .Regular 650 mg PO Q6H PRN #90 tablet 10/13/17 Strength -] Amlodipine Besylate [Norvasc -] 5 mg PO DAILY #30 tablet 10/13/17 Dexamethasone [Decadron -] 4 mg PO TID #60 tablet 10/13/17 Docusate Sodium [Colace -] 100 mg PO TID #90 capsule 10/13/17 Insulin (Levemir) [Levemir Vial] 27 units SQ HS #1 ml 10/13/17 Insulin (Levemir) [Levemir Vial] 35 units SQ AM #1 ml 10/13/17 Insulin Sliding Scale [Novolog 1 vial SQ ACHS units 10/13/17 Vial Sliding Scale -] Levothyroxine [Synthroid -] 25 mcg PO DAILY@0700 #30 tablet 10/13/17 PHYSICAL EXAMINATION AFVSS Cor: RSR, No murmurs, No gallops Lungs: Clear to P&A Abd: Soft, Normal bowel sounds, No organomegaly Ext:No significant edema Labs/Meds reviewed Active Medications Amlodipine Besylate (Norvasc -) 5 mg PO DAILY [facility] Last Admin: 12/18/17 09:35 Dose: 5 mg Dexamethasone (Decadron -) 4 mg PO TID [facility] Last Admin: 12/19/17 06:24 Dose: 4 mg Docusate Sodium (Colace -) 100 mg PO TID [facility] Last Admin: 12/19/17 06:24 Dose: 100 mg Ferrous Sulfate (Feosol -) 325 mg PO BIDWM [facility] Last Admin: 12/18/17 17:59 Dose: 325 mg Hydrochlorothiazide (Hctz -) 25 mg PO DAILY [facility] Last Admin: 12/18/17 09:35 Dose: 25 mg Ceftriaxone Sodium 1 gm/ (Dextrose) 50 mls @ 200 mls/hr IVPB DAILY [facility]; Protocol Last Admin: 12/18/17 12:36 Dose: 200 mls/hr Insulin Aspart (Novolog Vial Sliding Scale -) 1 vial SQ ACHS [facility]; Protocol Last Admin: 12/19/17 06:24 Dose: 4 units Insulin Detemir (Levemir Vial) 27 units SQ HS [facility] Last Admin: 12/18/17 21:36 Dose: 27 units Insulin Detemir (Levemir Vial) 35 units SQ AM [facility] Last Admin: 12/19/17 06:26 Dose: 35 units Levetiracetam (Keppra -) 500 mg PO BID [facility] Last Admin: 12/18/17 21:28 Dose: 500 mg Levothyroxine Sodium (Synthroid -) 25 mcg PO DAILY@0700 [facility] Last Admin: 12/19/17 06:24 Dose: 25 mcg Losartan Potassium (Cozaar -) 100 mg PO DAILY [facility] Last Admin: 12/18/17 15:44 Dose: 100 mg Morphine Sulfate (Morphine Sulfate) 2 mg IVPUSH Q6H PRN PRN Reason: PAIN LEVEL 6-10 Last Admin: 12/19/17 07:00 Dose: 2 mg ASSESSMENT/PLAN: Patient is a 57 year old female with a significant past medical history of breast cancer with metastatic disease to the brain with treatment with sterotactic RT, right parietal craniotomy /resection. Her oncologist is Dr. Marie Admitted recently in 09/2017 with progressive brain mets RT boost was considered and she was discharged to [facility] She was just discharged from [facility] and family brings her in to ER with concerns for her care at home and is being treated for UTI CT head shows improved edema and mid line shift Had been on TDM1 before admission in September Taper steroid request Rt consult ? boost Family disucssions regarding goals of care/palliative care consult Discuss with primary oncologist
[2017-12-19] MEDS: INSULIN SLIDING SCALE (NOVOLOG) 1 VIAL SQ SCH ×4 (06:24→21:34)
[2017-12-19] MEDS: LEVOTHYROXINE NA 25 MCG TABLET (FP) PO SCH (06:24)
[2017-12-19] MEDS: DOCUSATE SODIUM 100 MG CAPSULE (FP) PO SCH ×3 (06:24→21:27)
[2017-12-19] MEDS: DEXAMETHASONE 4 MG TABLET (FP) PO SCH ×3 (06:24→21:25)
[2017-12-19] MEDS: INSULIN (LEVEMIR) 100 UNITS/ML UNITS SQ SCH ×2 (06:26→21:34)
[2017-12-19] MEDS: MORPHINE SULFATE 2 MG/ML VIAL IVPUSH PRN ×2 (07:00→21:24)
[2017-12-19] MEDS ORDERED: DEXTROSE 5%-WATER - 50 ML IVPB ONE (09:42)
[2017-12-19] MEDS ORDERED: cefTRIAXone SODIUM 1 GM VIAL ONE (09:42)
[2017-12-19] MEDS: FERROUS SO4 325 MG TABLET (FP) PO SCH ×2 (09:44→17:17)
[2017-12-19] MEDS: LOSARTAN POTASSIUM 50 MG TABLET (FP) PO SCH (09:44)
[2017-12-19] MEDS: levETIRAcetam 500 MG TABLET (FP) PO SCH ×2 (09:44→21:24)
[2017-12-19] MEDS: HYDROCHLOROTHIAZIDE 25 MG TABLET (FP) PO SCH (09:45)
[2017-12-19] MEDS: amLODIPine BESYLATE 5 MG TABLET (FP) PO SCH (09:45)
[2017-12-19] MEDS: CEFTRIAXONE 1 GM in DEXTROSE 5%-WATER - 50 ML IVPB SCH (09:45)
--- NOTE | 2017-12-19 10:00 | PN ---
Progress Note (short form) - Note Progress Note: Radiation Oncology (full consult to follow) 57yo woman known to me from prior admission, metastatic HER2 breast cancer s/p GKS and WBRT recent increase in brain edema felt to be 2/2 radionecrosis vs recurrent tumor. Since last admission in September she's been at [facility] without intervening therapy. She reports TATUM, leg weakness when standing up. UTI on admission. Exam: Alert, fluent, oriented to name, year, but not current year (1987) CN II-XII grossly intact, sensation and motor nonfocal (4+/5 bilaterally, improved from September) CT head: improving right parietal edema and less midline shift. 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 Can get MRI(+) to be more certain. In absence of additional changes, would not offer more RT at this point. Cont DM/BG mgt, UTI tx, slow steroid taper PT as tolerated. Systemic tx per oncology.
--- NOTE | 2017-12-19 14:46 | PN ---
Progress Note, Physician History of Present Illness: says she is feelign better no complaints still with weakness - Current Medication List Current Medications: Active Medications Amlodipine Besylate (Norvasc -) 5 mg PO DAILY [facility] Last Admin: 12/19/17 09:45 Dose: 5 mg Dexamethasone (Decadron -) 4 mg PO TID [facility] Last Admin: 12/19/17 14:38 Dose: 4 mg Docusate Sodium (Colace -) 100 mg PO TID [facility] Last Admin: 12/19/17 14:38 Dose: 100 mg Ferrous Sulfate (Feosol -) 325 mg PO BIDWM [facility] Last Admin: 12/19/17 09:44 Dose: 325 mg Hydrochlorothiazide (Hctz -) 25 mg PO DAILY [facility] Last Admin: 12/19/17 09:45 Dose: 25 mg Ceftriaxone Sodium 1 gm/ (Dextrose) 50 mls @ 200 mls/hr IVPB DAILY [facility]; Protocol Last Admin: 12/19/17 09:45 Dose: 200 mls/hr Insulin Aspart (Novolog Vial Sliding Scale -) 1 vial SQ ACHS [facility]; Protocol Last Admin: 12/19/17 10:41 Dose: 10 units Insulin Detemir (Levemir Vial) 27 units SQ HS [facility] Last Admin: 12/18/17 21:36 Dose: 27 units Insulin Detemir (Levemir Vial) 35 units SQ AM [facility] Last Admin: 12/19/17 06:26 Dose: 35 units Levetiracetam (Keppra -) 500 mg PO BID [facility] Last Admin: 12/19/17 09:44 Dose: 500 mg Levothyroxine Sodium (Synthroid -) 25 mcg PO DAILY@0700 [facility] Last Admin: 12/19/17 06:24 Dose: 25 mcg Losartan Potassium (Cozaar -) 100 mg PO DAILY [facility] Last Admin: 12/19/17 09:44 Dose: 100 mg Morphine Sulfate (Morphine Sulfate) 2 mg IVPUSH Q6H PRN PRN Reason: PAIN LEVEL 6-10 Last Admin: 12/19/17 07:00 Dose: 2 mg - Objective Vital Signs: Vital Signs Temperature 98.2 F 12/19/17 14:00 Pulse Rate 89 12/19/17 14:00 Respiratory Rate 21 12/19/17 14:00 Blood Pressure 123/87 12/19/17 14:00 O2 Sat by Pulse Oximetry (%) 96 12/19/17 08:00 Constitutional: Yes: No Distress, Calm Cardiovascular: Yes: Regular Rate and Rhythm Respiratory: Yes: Regular, On Nasal O2, Poor Air Entry Gastrointestinal: Yes: Normal Bowel Sounds, Soft Musculoskeletal: Yes: WNL Extremities: Yes: WNL Neurological: Yes: Alert, Oriented Psychiatric: Yes: Alert, Oriented Labs: CBC, BMP 12/18/17 07:05 12/18/17 07:05 INR, PTT INR 1.04 (0.82-1.09) 12/17/17 10:30 Assessment/Plan Patient is a 57 year old female with a significant past medical history of breast cancer with metastatic disease to the brain with treatment with sterotactic RT, right parietal craniotomy for brain tumor. Her other history includes diabetes mellitus, hypothyroidism, vasogenic cerebral edema, hypertension and UTIs. She is brought into the ED today for headaches, left hip discomfort and right leg pain. Pt admitted because of headache and increased weakness and now having some bilateral lower ext discomfort and weakness. Head CT on admission shows diminished edema involving the right cerebral hemisphere diffusely with associated diminished contralateral midline shift. Patient is on home decadron. Metastatic brain cancer Lower extremity pain/discomfort: uti Hypothyroidism, Hypertension dm plan' continue current mgmt cx report noted ceftriaxone organism noted nutrition rest as per the team
[2017-12-19] MEDS ORDERED: INSULIN (NOVOLOG) ASPART 100 UNITS/ML 10ML VIAL ONE (16:16)
--- NOTE | 2017-12-19 22:16 | PN ---
Progress Note, Physician History of Present Illness: Pt feeling fatigued - Current Medication List Current Medications: Active Medications Amlodipine Besylate (Norvasc -) 5 mg PO DAILY [facility] Last Admin: 12/19/17 09:45 Dose: 5 mg Dexamethasone (Decadron -) 4 mg PO TID [facility] Last Admin: 12/19/17 21:25 Dose: 4 mg Docusate Sodium (Colace -) 100 mg PO TID [facility] Last Admin: 12/19/17 21:27 Dose: 100 mg Ferrous Sulfate (Feosol -) 325 mg PO BIDWM [facility] Last Admin: 12/19/17 17:17 Dose: 325 mg Hydrochlorothiazide (Hctz -) 25 mg PO DAILY [facility] Last Admin: 12/19/17 09:45 Dose: 25 mg Ceftriaxone Sodium 1 gm/ (Dextrose) 50 mls @ 200 mls/hr IVPB DAILY [facility]; Protocol Last Admin: 12/19/17 09:45 Dose: 200 mls/hr Insulin Aspart (Novolog Vial Sliding Scale -) 1 vial SQ ACHS [facility]; Protocol Last Admin: 12/19/17 21:34 Dose: 12 units Insulin Detemir (Levemir Vial) 27 units SQ HS [facility] Last Admin: 12/19/17 21:34 Dose: 27 units Insulin Detemir (Levemir Vial) 35 units SQ AM [facility] Last Admin: 12/19/17 06:26 Dose: 35 units Levetiracetam (Keppra -) 500 mg PO BID [facility] Last Admin: 12/19/17 21:24 Dose: 500 mg Levothyroxine Sodium (Synthroid -) 25 mcg PO DAILY@0700 [facility] Last Admin: 12/19/17 06:24 Dose: 25 mcg Losartan Potassium (Cozaar -) 100 mg PO DAILY [facility] Last Admin: 12/19/17 09:44 Dose: 100 mg Morphine Sulfate (Morphine Sulfate) 2 mg IVPUSH Q6H PRN PRN Reason: PAIN LEVEL 6-10 Last Admin: 12/19/17 21:24 Dose: 2 mg - Objective Vital Signs: Vital Signs Temperature 98.1 F 12/19/17 18:11 Pulse Rate 81 12/19/17 18:11 Respiratory Rate 18 12/19/17 18:11 Blood Pressure 129/82 12/19/17 18:11 O2 Sat by Pulse Oximetry (%) 96 12/19/17 08:00 Neck: Yes: WNL, Supple Cardiovascular: Yes: WNL, Regular Rate and Rhythm Respiratory: Yes: WNL, Regular, CTA Bilaterally Gastrointestinal: Yes: WNL, Normal Bowel Sounds, Soft Labs: CBC, BMP 12/18/17 07:05 12/18/17 07:05 INR, PTT INR 1.04 (0.82-1.09) 12/17/17 10:30 Problem List - Problems (1) Sepsis Assessment/Plan: Urine culture (+) for Klebsiella Cont IV ceftriaxone Code(s): A41.9 - SEPSIS, UNSPECIFIED ORGANISM Qualifiers: Sepsis type: sepsis due to unspecified organism Qualified Code(s): A41.9 - Sepsis, unspecified organism (2) Breast CA Assessment/Plan: Mets to the brain Cont decadron/keppra No further RT As per onco Code(s): C50.919 - MALIGNANT NEOPLASM OF UNSP SITE OF UNSPECIFIED FEMALE BREAST Qualifiers: Breast location: overlapping sites of breast Laterality: right (3) Cerebral edema Assessment/Plan: Slight improvement on ct scan Cont decadron Code(s): G93.6 - CEREBRAL EDEMA (4) Diabetes Assessment/Plan: Cont levemir Cont sliding scale w/ coverage Code(s): E11.9 - TYPE 2 DIABETES MELLITUS WITHOUT COMPLICATIONS Qualifiers: Diabetes mellitus type: type 2 Diabetes mellitus complication status: without complication (5) Generalized weakness Assessment/Plan: PT eval May need placement Code(s): R53.1 - WEAKNESS (6) Hypertension Assessment/Plan: BP stable Cont norvasc/losartan Code(s): I10 - ESSENTIAL (PRIMARY) HYPERTENSION (7) Hypothyroidism Assessment/Plan: Cont levothyroxine Check TSH Code(s): E03.9 - HYPOTHYROIDISM, UNSPECIFIED
[2017-12-20] MEDS: MORPHINE SULFATE 2 MG/ML VIAL IVPUSH PRN (06:33)
[2017-12-20] MEDS: DEXAMETHASONE 4 MG TABLET (FP) PO SCH ×3 (06:34→21:45)
[2017-12-20] MEDS: LEVOTHYROXINE NA 25 MCG TABLET (FP) PO SCH (06:34)
[2017-12-20] MEDS: INSULIN SLIDING SCALE (NOVOLOG) 1 VIAL SQ SCH ×4 (06:34→22:01)
[2017-12-20] MEDS: INSULIN (LEVEMIR) 100 UNITS/ML UNITS SQ SCH ×2 (06:34→21:45)
[2017-12-20] MEDS: DOCUSATE SODIUM 100 MG CAPSULE (FP) PO SCH ×3 (06:34→21:45)
[2017-12-20 08:08] LABS: BASO % 0.7 % (0-2.0); EOS % 0.8 % (0-4.5); HEMATOCRIT 35.1 % (32.4-45.2); HEMOGLOBIN 11.5 GM/dL (10.7-15.3); LYMPH % 22.4 % (8-40); MCH 24.5 pg (25.7-33.7); MCHC 32.8 g/dl (32.0-36.0); MEAN CELL VOLUME 74.8 fl (80-96); MONO % 7.9 % (3.8-10.2); NEUT % 68.2 % (42.8-82.8); PLATELET COUNT 194 K/MM3 (134-434); RBC 4.69 M/mm3 (3.60-5.2)
[2017-12-20] MEDS: FERROUS SO4 325 MG TABLET (FP) PO SCH ×2 (08:45→17:39)
[2017-12-20 08:58] LABS: ALBUMIN 2.6 g/dl (3.4-5.0); ANION GAP 11 (8-16); BLOOD UREA NITROGEN 14 mg/dL (7-18); CALCIUM 9.2 mg/dL (8.5-10.1); CHLORIDE 105 mmol/L (98-107); CO2 27 mmol/L (21-32); GLUCOSE,RANDOM 127 mg/dL (74-106); POTASSIUM 3.5 mmol/L (3.5-5.1); SODIUM 143 mmol/L (136-145)
[2017-12-20 09:02] LABS: ALK PHOS 122 U/L (45-117); BILIRUBIN,TOTAL 0.2 mg/dL (0.2-1.0); CREATININE 0.5 mg/dL (0.55-1.02); SGOT/AST 35 U/L (15-37); SGPT/ALT 48 U/L (12-78); TOT PROT 6.1 g/dl (6.4-8.2)
[2017-12-20] MEDS ORDERED: cefTRIAXone SODIUM 1 GM VIAL ONE (09:18)
[2017-12-20] MEDS ORDERED: DEXTROSE 5%-WATER - 50 ML IVPB ONE (09:18)
--- NOTE | 2017-12-20 09:20 | CONS ---
DATE OF CONSULTATION: 12/19/2017 REFERRING PHYSICIAN: Ebonie Valenzuela MD REASON FOR CONSULTATION: Metastatic breast cancer. HISTORY OF PRESENT ILLNESS: The patient is a 57-year-old woman known to our practice from prior admission and radiation therapy treatment for metastatic HER-2 positive breast cancer. She had received Gamma Knife radiosurgery followed by whole brain radiation therapy in 2014. She has been on anti-HER-[address] Kiser. On last admission, she was admitted with increased brain edema with mass effect, and there was suspicion of tumor recurrence on the imaging studies. Radionecrosis could not be ruled out. She was managed conservatively with steroids. She has been at the [facility] since that admission and was recently discharged home and apparently was not doing well on her own and brought in for headaches and leg weakness. She has not had interval cancer therapy since 3 months ago. She reports leg weakness when standing up and headaches which have improved. The workup has shown a urinary tract infection which is being treated. She feels better today. PAST MEDICAL HISTORY: Hypertension, diabetes mellitus, GERD, prior radiotherapy and chemotherapy as noted. PAST SURGICAL HISTORY: Right parietal craniotomy, cesarian section. ALLERGIES: OXYCODONE. CURRENT MEDICATIONS: Cozaar, ceftriaxone, Keppra, Colace, Decadron 4 mg t.i.d., Norvasc, insulin sliding scale, ferrous sulfate, hydrochlorothiazide, Synthroid. SOCIAL HISTORY: She lives at home. 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 She does not smoke or consume alcohol. FAMILY HISTORY: No history of malignancy. REVIEW OF SYSTEMS: Mild headache, but denies nausea, vomiting, dizziness, blurry vision, paresthesias, urinary or bowel habit changes, incontinence, or pain elsewhere. PHYSICAL EXAMINATION: General: female in no acute distress, sitting in the chair. Her speech is fluent, and she is alert, oriented x3. Vital Signs: Temperature 97.9, blood pressure 144/94, pulse 74, respiratory rate 18. SaO2 is 96% on room air. HEENT: Alopecia, with scant hair regrowth. No desquamation. Moist mucous membranes. Anicteric sclerae. Clear oral cavity. Neck: No mass or adenopathy. Chest: Clear bilaterally. Cardiovascular: Regular. Abdomen: Soft, nontender, nondistended. Extremities: Full range of motion. Neurologic: Alert and oriented x3. Cranial nerves II through XII are grossly intact. No sensory deficits. No pronator drift. Motor is nonfocal, 4+/5 bilaterally, slightly improved from September. RADIOLOGIC DATA: CT head: Improvement in right parietal edema and midline shift. LABORATORY DATA: Urinary culture positive for klebsiella. CBC: WBC 6.0, hemoglobin 11.7, platelet count 172,000. Electrolytes within normal limits. BUN 11, creatinine 0.5, calcium 9.0. Liver function tests within normal limits except for alkaline phosphatase 118. Albumin 2.6. 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 Decreasing brain edema without intervening therapy, would argue for radionecrosis rather than tumor progression/recurrence. An MRI with contrast can allow us to be more certain. In the absence of additional changes however, I would not offer more radiation therapy at this time. PLAN: No radiotherapy planned. Continue diabetes/blood glucose management, urinary tract infection treatment. Continue slow steroid taper. She should have physical therapy as tolerated. Systemic therapy as per oncology. Thank you for asking me to participate in the care of this patient. ANIBAL MICHELE M.D. LIANA/[id number] MTDD
[2017-12-20] MEDS: CEFTRIAXONE 1 GM in DEXTROSE 5%-WATER - 50 ML IVPB SCH (09:28)
[2017-12-20] MEDS: HYDROCHLOROTHIAZIDE 25 MG TABLET (FP) PO SCH (09:29)
[2017-12-20] MEDS: levETIRAcetam 500 MG TABLET (FP) PO SCH ×2 (09:29→21:45)
[2017-12-20] MEDS: LOSARTAN POTASSIUM 50 MG TABLET (FP) PO SCH (09:29)
[2017-12-20] MEDS: amLODIPine BESYLATE 5 MG TABLET (FP) PO SCH (09:29)
--- NOTE | 2017-12-20 10:53 | CONSULT ---
Consultation: REQUESTING PROVIDER: CONSULT REQUEST: We have been asked to medically evaluate this patient for ( Hematology- oncology ). HISTORY OF PRESENT ILLNESS: Patient is a 57 year old female with a significant past medical history of breast cancer with metastatic disease to the brain with treatment with sterotactic RT, right parietal craniotomy for brain tumor. Patient came to hospital because of persistent headache. Ct scan was done in [place] shows her edema and midline shift has decreased in comparison to previous scan. Patient also have mets to spine and report left lower extremity weakness. Also report fecal and urine incontinence. Today patient feels better reports her headache is better then she when she came to hospital. Patient is on dexamethasone 4mg TID. In ER patient also found to have UTI and has been treated with antibiotics. PMH: diabetes mellitus, hypothyroidism, vasogenic cerebral edema, hypertension and UTI Family History: No h/o cancer in family. PHYSICAL EXAMINATION Vital Signs - 24 hr 12/20/17 12/20/17 06:00 09:13 Temperature 98.4 F 98.4 F Pulse Rate 72 78 Respiratory 18 20 Rate Blood Pressure 149/99 131/86 O2 Sat by Pulse Oximetry (%) GENERAL: Awake, lethargic, answering questions appropriately, in no acute distress HEAD: scar hyacinth present EYES: conjuctiva clear, EARS, NOSE, THROAT: dry mucous membranes. no thrush LUNGS: Breath sounds equal, clear to auscultation bilaterally HEART: Regular rate and rhythm ABDOMEN: Soft, mildly distended, + bowel sounds MUSCULOSKELETAL: No CVA tenderness. UPPER EXTREMITIES: No peripheral edema. NEUROLOGICAL: Normal speech. left lower extremity weakness. PSYCHIATRIC: Cooperative. 12/20/17 07:30 WBC RBC Hgb Hct MCV MCH MCHC RDW Plt Count MPV Absolute Neuts (auto) Neutrophils % Lymphocytes % Monocytes % Eosinophils % Basophils % Nucleated RBC % Sodium 143 Potassium 3.5 Chloride 105 Carbon Dioxide 27 Anion Gap 11 BUN 14 Creatinine 0.5 L Creat Clearance w eGFR > 60 POC Glucometer Random Glucose 127 H Calcium 9.2 Total Bilirubin 0.2 AST 35 ALT 48 Alkaline Phosphatase 122 H Total Protein 6.1 L Albumin 2.6 L Active Medications Generic Name Dose Route Start Last Admin Trade Name Freq PRN Reason Stop Dose Admin Amlodipine Besylate 5 mg 12/18/17 10:00 12/20/17 09:29 Norvasc - PO 5 mg DAILY [facility] Administration Dexamethasone 4 mg 12/17/17 22:00 12/20/17 06:34 Decadron - PO 4 mg TID JD Administration Docusate Sodium 100 mg 12/17/17 22:00 12/20/17 06:34 Colace - PO 100 mg TID JD Administration Ferrous Sulfate 325 mg 12/18/17 08:00 12/20/17 08:45 Feosol - PO 325 mg BIDWM JD Administration Hydrochlorothiazide 25 mg 12/18/17 10:00 12/20/17 09:29 Hctz - PO 25 mg DAILY [facility] Administration Ceftriaxone Sodium 1 gm/ 50 mls @ 200 mls/hr 12/18/17 12:00 12/20/17 09:28 Dextrose IVPB 200 mls/hr DAILY [facility] Administration Protocol Insulin Aspart 1 vial 12/17/17 22:00 12/20/17 06:34 Novolog Vial Sliding Scale - SQ 2 units ACHS [facility] Administration Protocol Insulin Detemir 27 units 12/17/17 22:00 12/19/17 21:34 Levemir Vial SQ 27 units HS [facility] Administration Insulin Detemir 35 units 12/18/17 07:00 12/20/17 06:34 Levemir Vial SQ 35 units AM [facility] Administration Levetiracetam 500 mg 12/17/17 22:00 12/20/17 09:29 Keppra - PO 500 mg BID [facility] Administration Levothyroxine Sodium 25 mcg 12/18/17 07:00 12/20/17 06:34 Synthroid - PO 25 mcg DAILY@0700 JD Administration Losartan Potassium 100 mg 12/18/17 10:07 12/20/17 09:29 Cozaar - PO 100 mg DAILY [facility] Administration Morphine Sulfate 2 mg 12/18/17 20:59 12/20/17 06:33 Morphine Sulfate IVPUSH 2 mg Q6H PRN Administration PAIN LEVEL 6-10 ASSESSMENT/PLAN: Dispo: We will continue to follow the patient. Thank you for this consultative opportunity.
[2017-12-20 10:58] LABS: ACANTHOCYTES 0; ANISOCYTOSIS 0; HELMET CELLS 0; HOWELL-JOLLY BODIES 0; MACROCYTOSIS 0; OVALOCYTE 0; PLATELET ESTIMATE NORMAL; ROULEAU 0; SICKELED CELLS 0; TARGET CELLS 0; TEAR DROP CELLS 0; TOXIC GRANULATION 0
--- NOTE | 2017-12-20 11:00 | PN ---
Physical Exam: SUBJECTIVE: Hematology- oncology Patient seen and examined Patient is a 57 year old female with a significant past medical history of breast cancer with metastatic disease to the brain with treatment with sterotactic RT, right parietal craniotomy for brain tumor. Patient came to hospital because of persistent headache. Ct scan was done in [place] shows her edema and midline shift has decreased in comparison to previous scan. Patient also have mets to spine and report left lower extremity weakness. Also report fecal and urine incontinence. Today patient feels better reports her headache is better then she when she came to hospital. Patient is on dexamethasone 4mg TID. In ER patient also found to have UTI and has been treated with antibiotics. PMH: diabetes mellitus, hypothyroidism, vasogenic cerebral edema, hypertension and UTI Family History: No h/o cancer in family. Her oncologist is Dr. Marie PHYSICAL EXAMINATION Vital Signs - 24 hr 12/20/17 12/20/17 06:00 09:13 Temperature 98.4 F 98.4 F Pulse Rate 72 78 Respiratory 18 20 Rate Blood Pressure 149/99 131/86 O2 Sat by Pulse Oximetry (%) GENERAL: Awake, lethargic, answering questions appropriately, in no acute distress HEAD: scar hyacinth present EYES: conjuctiva clear, EARS, NOSE, THROAT: dry mucous membranes. no thrush LUNGS: Breath sounds equal, clear to auscultation bilaterally HEART: Regular rate and rhythm ABDOMEN: Soft, mildly distended, + bowel sounds MUSCULOSKELETAL: No CVA tenderness. UPPER EXTREMITIES: No peripheral edema. NEUROLOGICAL: Normal speech. left lower extremity weakness. PSYCHIATRIC: Cooperative. 12/20/17 07:30 WBC RBC Hgb Hct MCV MCH MCHC RDW Plt Count MPV Absolute Neuts (auto) Neutrophils % Lymphocytes % Monocytes % Eosinophils % Basophils % Nucleated RBC % Sodium 143 Potassium 3.5 Chloride 105 Carbon Dioxide 27 Anion Gap 11 BUN 14 Creatinine 0.5 L Creat Clearance w eGFR > 60 POC Glucometer Random Glucose 127 H Calcium 9.2 Total Bilirubin 0.2 AST 35 ALT 48 Alkaline Phosphatase 122 H Total Protein 6.1 L Albumin 2.6 L Active Medications Generic Name Dose Route Start Last Admin Trade Name Freq PRN Reason Stop Dose Admin Amlodipine Besylate 5 mg 12/18/17 10:00 12/20/17 09:29 Norvasc - PO 5 mg DAILY JD Administration Dexamethasone 4 mg 12/17/17 22:00 12/20/17 06:34 Decadron - PO 4 mg TID JD Administration Docusate Sodium 100 mg 12/17/17 22:00 12/20/17 06:34 Colace - PO 100 mg TID JD Administration Ferrous Sulfate 325 mg 12/18/17 08:00 12/20/17 08:45 Feosol - PO 325 mg BIDWM JD Administration Hydrochlorothiazide 25 mg 12/18/17 10:00 12/20/17 09:29 Hctz - PO 25 mg DAILY [facility] Administration Ceftriaxone Sodium 1 gm/ 50 mls @ 200 mls/hr 12/18/17 12:00 12/20/17 09:28 Dextrose IVPB 200 mls/hr DAILY [facility] Administration Protocol Insulin Aspart 1 vial 12/17/17 22:00 12/20/17 06:34 Novolog Vial Sliding Scale - SQ 2 units ACHS JD Administration Protocol Insulin Detemir 27 units 12/17/17 22:00 12/19/17 21:34 Levemir Vial SQ 27 units HS JD Administration Insulin Detemir 35 units 12/18/17 07:00 12/20/17 06:34 Levemir Vial SQ 35 units AM JD Administration Levetiracetam 500 mg 12/17/17 22:00 12/20/17 09:29 Keppra - PO 500 mg BID JD Administration Levothyroxine Sodium 25 mcg 12/18/17 07:00 12/20/17 06:34 Synthroid - PO 25 mcg DAILY@0700 JD Administration Losartan Potassium 100 mg 12/18/17 10:07 12/20/17 09:29 Cozaar - PO 100 mg DAILY [facility] Administration Morphine Sulfate 2 mg 12/18/17 20:59 12/20/17 06:33 Morphine Sulfate IVPUSH 2 mg Q6H PRN Administration PAIN LEVEL 6-10 ASSESSMENT/PLAN: Patient is a 57 year old female with a significant past medical history of breast cancer with metastatic disease to the brain with treatment with sterotactic RT, right parietal craniotomy /resection. Also have mets in spine with LLE weakness with fecal and urine incontinence. CT head shows improved edema and mid line shift on dexamethasone 4mg po TID, RT consult appreciated. Palliative care consult. Visit type - Emergency Visit Emergency Visit: Yes ED Registration Date: 12/17/17 Care time: The patient presented to the Emergency Department on the above date and was hospitalized for further evaluation of their emergent condition. - New Patient This patient is new to me today: Yes Date on this admission: 12/21/17 - Critical Care Critical Care patient: No
--- NOTE | 2017-12-20 11:43 | PN ---
Progress Note, Physician History of Present Illness: continues to improve still with high sugars no complaints still with weakness - Current Medication List Current Medications: Active Medications Amlodipine Besylate (Norvasc -) 5 mg PO DAILY [facility] Last Admin: 12/20/17 09:29 Dose: 5 mg Dexamethasone (Decadron -) 4 mg PO TID [facility] Last Admin: 12/20/17 06:34 Dose: 4 mg Docusate Sodium (Colace -) 100 mg PO TID [facility] Last Admin: 12/20/17 06:34 Dose: 100 mg Ferrous Sulfate (Feosol -) 325 mg PO BIDWM [facility] Last Admin: 12/20/17 08:45 Dose: 325 mg Hydrochlorothiazide (Hctz -) 25 mg PO DAILY [facility] Last Admin: 12/20/17 09:29 Dose: 25 mg Ceftriaxone Sodium 1 gm/ (Dextrose) 50 mls @ 200 mls/hr IVPB DAILY [facility]; Protocol Last Admin: 12/20/17 09:28 Dose: 200 mls/hr Insulin Aspart (Novolog Vial Sliding Scale -) 1 vial SQ ACHS [facility]; Protocol Last Admin: 12/20/17 06:34 Dose: 2 units Insulin Detemir (Levemir Vial) 27 units SQ HS [facility] Last Admin: 18 21:34 Dose: 27 units Insulin Detemir (Levemir Vial) 35 units SQ AM [facility] Last Admin: 12/20/17 06:34 Dose: 35 units Levetiracetam (Keppra -) 500 mg PO BID [facility] Last Admin: 12/20/17 09:29 Dose: 500 mg Levothyroxine Sodium (Synthroid -) 25 mcg PO DAILY@0700 [facility] Last Admin: 12/20/17 06:34 Dose: 25 mcg Losartan Potassium (Cozaar -) 100 mg PO DAILY [facility] Last Admin: 12/20/17 09:29 Dose: 100 mg Morphine Sulfate (Morphine Sulfate) 2 mg IVPUSH Q6H PRN PRN Reason: PAIN LEVEL 6-10 Last Admin: 12/20/17 06:33 Dose: 2 mg - Objective Vital Signs: Vital Signs Temperature 98.4 F 12/20/17 09:13 Pulse Rate 78 12/20/17 09:13 Respiratory Rate 20 12/20/17 09:13 Blood Pressure 131/86 12/20/17 09:13 O2 Sat by Pulse Oximetry (%) 96 12/19/17 21:00 Constitutional: Yes: No Distress, Calm, Other (weakness) Cardiovascular: Yes: Regular Rate and Rhythm Respiratory: Yes: Regular, CTA Bilaterally, On Nasal O2 Gastrointestinal: Yes: Normal Bowel Sounds, Soft Musculoskeletal: Yes: WNL Extremities: Yes: WNL Neurological: Yes: Alert, Oriented Psychiatric: Yes: Alert, Oriented Labs: CBC, BMP 12/20/17 07:30 12/20/17 07:30 INR, PTT INR 1.04 (0.82-1.09) 12/17/17 10:30 Assessment/Plan Patient is a 57 year old female with a significant past medical history of breast cancer with metastatic disease to the brain with treatment with sterotactic RT, right parietal craniotomy for brain tumor. Her other history includes diabetes mellitus, hypothyroidism, vasogenic cerebral edema, hypertension and UTIs. She is brought into the ED today for headaches, left hip discomfort and right leg pain. Metastatic brain cancer Lower extremity pain/discomfort: uti Hypothyroidism, Hypertension dm plan' continue current mgmt cx report noted ceftriaxone organism noted nutrition rest as per the team
[2017-12-20] MEDS ORDERED: INSULIN (NOVOLOG) ASPART 100 UNITS/ML 10ML VIAL ONE (21:41)
--- NOTE | 2017-12-20 23:41 | PN ---
Progress Note, Physician History of Present Illness: No new change - Current Medication List Current Medications: Active Medications Amlodipine Besylate (Norvasc -) 5 mg PO DAILY [facility] Last Admin: 12/20/17 09:29 Dose: 5 mg Dexamethasone (Decadron -) 4 mg PO TID [facility] Last Admin: 12/20/17 21:45 Dose: 4 mg Docusate Sodium (Colace -) 100 mg PO TID [facility] Last Admin: 12/20/17 21:45 Dose: 100 mg Ferrous Sulfate (Feosol -) 325 mg PO BIDWM [facility] Last Admin: 12/20/17 17:39 Dose: 325 mg Hydrochlorothiazide (Hctz -) 25 mg PO DAILY [facility] Last Admin: 12/20/17 09:29 Dose: 25 mg Ceftriaxone Sodium 1 gm/ (Dextrose) 50 mls @ 200 mls/hr IVPB DAILY [facility]; Protocol Last Admin: 12/20/17 09:28 Dose: 200 mls/hr Insulin Aspart (Novolog Vial Sliding Scale -) 1 vial SQ ACHS [facility]; Protocol Last Admin: 12/20/17 22:01 Dose: 1 vial Insulin Detemir (Levemir Vial) 27 units SQ HS [facility] Last Admin: 12/20/17 21:45 Dose: 27 units Insulin Detemir (Levemir Vial) 35 units SQ AM [facility] Last Admin: 12/20/17 06:34 Dose: 35 units Levetiracetam (Keppra -) 500 mg PO BID [facility] Last Admin: 12/20/17 21:45 Dose: 500 mg Levothyroxine Sodium (Synthroid -) 25 mcg PO DAILY@0700 [facility] Last Admin: 12/20/17 06:34 Dose: 25 mcg Losartan Potassium (Cozaar -) 100 mg PO DAILY [facility] Last Admin: 12/20/17 09:29 Dose: 100 mg Morphine Sulfate (Morphine Sulfate) 2 mg IVPUSH Q6H PRN PRN Reason: PAIN LEVEL 6-10 Last Admin: 12/20/17 06:33 Dose: 2 mg - Objective Vital Signs: Vital Signs Temperature 98.7 F 12/20/17 18:00 Pulse Rate 78 12/20/17 18:00 Respiratory Rate 20 12/20/17 20:17 Blood Pressure 138/72 12/20/17 18:00 O2 Sat by Pulse Oximetry (%) 96 12/20/17 20:17 Neck: Yes: WNL, Supple Cardiovascular: Yes: WNL, Regular Rate and Rhythm Respiratory: Yes: WNL, Regular, CTA Bilaterally Gastrointestinal: Yes: WNL, Normal Bowel Sounds, Soft Labs: CBC, BMP 12/20/17 07:30 12/20/17 21:30 INR, PTT INR 1.04 (0.82-1.09) 12/17/17 10:30 Problem List - Problems (1) Sepsis Assessment/Plan: Urine culture (+) for Klebsiella Cont IV ceftriaxone Code(s): A41.9 - SEPSIS, UNSPECIFIED ORGANISM Qualifiers: Sepsis type: sepsis due to unspecified organism Qualified Code(s): A41.9 - Sepsis, unspecified organism (2) Breast CA Assessment/Plan: Mets to the brain Cont decadron/keppra No further RT As per onco Code(s): C50.919 - MALIGNANT NEOPLASM OF UNSP SITE OF UNSPECIFIED FEMALE BREAST Qualifiers: Breast location: overlapping sites of breast Laterality: right (3) Cerebral edema Assessment/Plan: Slight improvement on ct scan Cont decadron Code(s): G93.6 - CEREBRAL EDEMA (4) Diabetes Assessment/Plan: Cont levemir Cont sliding scale w/ coverage Glucose elevated due to steroids Code(s): E11.9 - TYPE 2 DIABETES MELLITUS WITHOUT COMPLICATIONS Qualifiers: Diabetes mellitus type: type 2 Diabetes mellitus complication status: without complication (5) Generalized weakness Assessment/Plan: PT eval May need placement Code(s): R53.1 - WEAKNESS (6) Hypertension Assessment/Plan: BP stable Cont norvasc/losartan Code(s): I10 - ESSENTIAL (PRIMARY) HYPERTENSION (7) Hypothyroidism Assessment/Plan: Cont levothyroxine Check TSH Code(s): E03.9 - HYPOTHYROIDISM, UNSPECIFIED
[2017-12-21] MEDS: ACETAMINOPHEN 325 MG TABLET (FP) PO PRN ×2 (03:13→18:10)
[2017-12-21] MEDS: DEXAMETHASONE 4 MG TABLET (FP) PO SCH ×3 (05:46→21:17)
[2017-12-21] MEDS: DOCUSATE SODIUM 100 MG CAPSULE (FP) PO SCH ×3 (05:46→21:17)
[2017-12-21] MEDS: LEVOTHYROXINE NA 25 MCG TABLET (FP) PO SCH (06:26)
[2017-12-21] MEDS: INSULIN (LEVEMIR) 100 UNITS/ML UNITS SQ SCH ×2 (06:26→21:18)
[2017-12-21] MEDS: INSULIN SLIDING SCALE (NOVOLOG) 1 VIAL SQ SCH ×4 (06:27→21:20)
[2017-12-21] MEDS ORDERED: INSULIN (NOVOLOG) ASPART 100 UNITS/ML 10ML VIAL ONE ×2 (06:37→20:47)
[2017-12-21] MEDS: FERROUS SO4 325 MG TABLET (FP) PO SCH ×2 (08:47→16:59)
[2017-12-21] MEDS ORDERED: DEXTROSE 5%-WATER - 50 ML IVPB ONE (10:42)
[2017-12-21] MEDS ORDERED: cefTRIAXone SODIUM 1 GM VIAL ONE (10:42)
[2017-12-21] MEDS: CEFTRIAXONE 1 GM in DEXTROSE 5%-WATER - 50 ML IVPB SCH (10:47)
[2017-12-21] MEDS: amLODIPine BESYLATE 5 MG TABLET (FP) PO SCH (10:47)
[2017-12-21] MEDS: levETIRAcetam 500 MG TABLET (FP) PO SCH ×2 (10:47→21:17)
[2017-12-21] MEDS: LOSARTAN POTASSIUM 50 MG TABLET (FP) PO SCH (10:47)
[2017-12-21] MEDS: HYDROCHLOROTHIAZIDE 25 MG TABLET (FP) PO SCH (10:48)
--- NOTE | 2017-12-21 17:33 | PN ---
Progress Note, Physician History of Present Illness: doing well no complaints according to staff slight confusion otherwise comfortable - Current Medication List Current Medications: Active Medications Acetaminophen (Tylenol -) 650 mg PO Q6H PRN PRN Reason: HEADACHE/PAIN LEVEL 5-10 Last Admin: 12/21/17 03:13 Dose: 650 mg Amlodipine Besylate (Norvasc -) 5 mg PO DAILY [facility] Last Admin: 12/21/17 10:47 Dose: 5 mg Dexamethasone (Decadron -) 4 mg PO TID [facility] Last Admin: 12/21/17 14:04 Dose: 4 mg Docusate Sodium (Colace -) 100 mg PO TID [facility] Last Admin: 12/21/17 14:04 Dose: 100 mg Ferrous Sulfate (Feosol -) 325 mg PO BIDWM [facility] Last Admin: 12/21/17 16:59 Dose: 325 mg Hydrochlorothiazide (Hctz -) 25 mg PO DAILY [facility] Last Admin: 12/21/17 10:48 Dose: 25 mg Ceftriaxone Sodium 1 gm/ (Dextrose) 50 mls @ 200 mls/hr IVPB DAILY [facility]; Protocol Last Admin: 12/21/17 10:47 Dose: 200 mls/hr Insulin Aspart (Novolog Vial Sliding Scale -) 1 vial SQ ACHS [facility]; Protocol Last Admin: 12/21/17 16:31 Dose: 8 units Insulin Detemir (Levemir Vial) 27 units SQ HS [facility] Last Admin: 12/20/17 21:45 Dose: 27 units Insulin Detemir (Levemir Vial) 35 units SQ AM [facility] Last Admin: 12/21/17 06:26 Dose: 35 units Levetiracetam (Keppra -) 500 mg PO BID [facility] Last Admin: 12/21/17 10:47 Dose: 500 mg Levothyroxine Sodium (Synthroid -) 25 mcg PO DAILY@0700 [facility] Last Admin: 12/21/17 06:26 Dose: 25 mcg Losartan Potassium (Cozaar -) 100 mg PO DAILY [facility] Last Admin: 12/21/17 10:47 Dose: 100 mg Morphine Sulfate (Morphine Sulfate) 2 mg IVPUSH Q6H PRN PRN Reason: PAIN LEVEL 6-10 Last Admin: 12/20/17 06:33 Dose: 2 mg - Objective Vital Signs: Vital Signs Temperature 97.7 F 12/21/17 14:00 Pulse Rate 84 12/21/17 14:00 Respiratory Rate 21 12/21/17 14:00 Blood Pressure 155/98 12/21/17 14:00 O2 Sat by Pulse Oximetry (%) 96 12/21/17 09:00 Constitutional: Yes: No Distress, Calm Cardiovascular: Yes: Regular Rate and Rhythm Respiratory: Yes: Regular, CTA Bilaterally, On Nasal O2 Gastrointestinal: Yes: Normal Bowel Sounds, Soft Musculoskeletal: Yes: WNL Extremities: Yes: WNL Neurological: Yes: Alert Psychiatric: Yes: Alert Labs: CBC, BMP 12/20/17 07:30 12/20/17 21:30 INR, PTT INR 1.04 (0.82-1.09) 12/17/17 10:30 Assessment/Plan Patient is a 57 year old female with a significant past medical history of breast cancer with metastatic disease to the brain with treatment with sterotactic RT, right parietal craniotomy for brain tumor. Her other history includes diabetes mellitus, hypothyroidism, vasogenic cerebral edema, hypertension and UTIs. She is brought into the ED today for headaches, left hip discomfort and right leg pain. Metastatic brain cancer Lower extremity pain/discomfort: uti Hypothyroidism, Hypertension dm plan' continue current mgmt cx report noted ceftriaxone might deescalate tomorrow rest as per the team
--- NOTE | 2017-12-21 22:53 | PN ---
Progress Note, Physician History of Present Illness: Pt w/ slight confusion - Current Medication List Current Medications: Active Medications Acetaminophen (Tylenol -) 650 mg PO Q6H PRN PRN Reason: HEADACHE/PAIN LEVEL 5-10 Last Admin: 12/21/17 18:10 Dose: 650 mg Amlodipine Besylate (Norvasc -) 5 mg PO DAILY [facility] Last Admin: 12/21/17 10:47 Dose: 5 mg Dexamethasone (Decadron -) 4 mg PO TID [facility] Last Admin: 12/21/17 21:17 Dose: 4 mg Docusate Sodium (Colace -) 100 mg PO TID [facility] Last Admin: 12/21/17 21:17 Dose: 100 mg Ferrous Sulfate (Feosol -) 325 mg PO BIDWM [facility] Last Admin: 12/21/17 16:59 Dose: 325 mg Hydrochlorothiazide (Hctz -) 25 mg PO DAILY [facility] Last Admin: 12/21/17 10:48 Dose: 25 mg Ceftriaxone Sodium 1 gm/ (Dextrose) 50 mls @ 200 mls/hr IVPB DAILY [facility]; Protocol Last Admin: 12/21/17 10:47 Dose: 200 mls/hr Insulin Aspart (Novolog Vial Sliding Scale -) 1 vial SQ ACHS [facility]; Protocol Last Admin: 12/21/17 21:20 Dose: 4 units Insulin Detemir (Levemir Vial) 27 units SQ HS [facility] Last Admin: 12/21/17 21:18 Dose: 27 units Insulin Detemir (Levemir Vial) 35 units SQ AM [facility] Last Admin: 12/21/17 06:26 Dose: 35 units Levetiracetam (Keppra -) 500 mg PO BID [facility] Last Admin: 12/21/17 21:17 Dose: 500 mg Levothyroxine Sodium (Synthroid -) 25 mcg PO DAILY@0700 [facility] Last Admin: 12/21/17 06:26 Dose: 25 mcg Losartan Potassium (Cozaar -) 100 mg PO DAILY [facility] Last Admin: 12/21/17 10:47 Dose: 100 mg - Objective Vital Signs: Vital Signs Temperature 98.4 F 12/21/17 18:00 Pulse Rate 98 H 12/21/17 18:00 Respiratory Rate 20 12/21/17 18:00 Blood Pressure 140/86 12/21/17 18:00 O2 Sat by Pulse Oximetry (%) 96 12/21/17 09:00 Neck: Yes: WNL, Supple Cardiovascular: Yes: WNL, Regular Rate and Rhythm Respiratory: Yes: WNL, Regular, CTA Bilaterally Gastrointestinal: Yes: WNL, Normal Bowel Sounds, Soft Labs: CBC, BMP 12/20/17 07:30 12/20/17 21:30 INR, PTT INR 1.04 (0.82-1.09) 12/17/17 10:30 Problem List - Problems (1) Sepsis Assessment/Plan: Urine culture (+) for Klebsiella Cont IV ceftriaxone Code(s): A41.9 - SEPSIS, UNSPECIFIED ORGANISM Qualifiers: Sepsis type: sepsis due to unspecified organism Qualified Code(s): A41.9 - Sepsis, unspecified organism (2) Breast CA Assessment/Plan: Mets to the brain Cont decadron/keppra No further RT As per onco Will get palliative care consult PT eval Code(s): C50.919 - MALIGNANT NEOPLASM OF UNSP SITE OF UNSPECIFIED FEMALE BREAST Qualifiers: Breast location: overlapping sites of breast Laterality: right (3) Cerebral edema Assessment/Plan: Slight improvement on ct scan Cont decadron Code(s): G93.6 - CEREBRAL EDEMA (4) Diabetes Assessment/Plan: Cont levemir Cont sliding scale w/ coverage Glucose elevated due to steroids Endo consult Code(s): E11.9 - TYPE 2 DIABETES MELLITUS WITHOUT COMPLICATIONS Qualifiers: Diabetes mellitus type: type 2 Diabetes mellitus complication status: without complication (5) Generalized weakness Assessment/Plan: PT eval May need placement Code(s): R53.1 - WEAKNESS (6) Hypertension Assessment/Plan: BP stable Cont norvasc/losartan Code(s): I10 - ESSENTIAL (PRIMARY) HYPERTENSION (7) Hypothyroidism Assessment/Plan: Cont levothyroxine Check TSH Code(s): E03.9 - HYPOTHYROIDISM, UNSPECIFIED
[2017-12-22] MEDS: DOCUSATE SODIUM 100 MG CAPSULE (FP) PO SCH ×3 (06:23→22:08)
[2017-12-22] MEDS: DEXAMETHASONE 4 MG TABLET (FP) PO SCH ×3 (06:23→22:08)
[2017-12-22] MEDS: LEVOTHYROXINE NA 25 MCG TABLET (FP) PO SCH (06:23)
[2017-12-22] MEDS: INSULIN (LEVEMIR) 100 UNITS/ML UNITS SQ SCH (06:24)
[2017-12-22] MEDS: INSULIN SLIDING SCALE (NOVOLOG) 1 VIAL SQ SCH ×4 (06:25→22:19)
[2017-12-22 08:13] LABS: BASO % 0.5 % (0-2.0); EOS % 0.5 % (0-4.5); HEMATOCRIT 35.4 % (32.4-45.2); HEMOGLOBIN 11.6 GM/dL (10.7-15.3); LYMPH % 19.5 % (8-40); MCH 24.5 pg (25.7-33.7); MCHC 32.8 g/dl (32.0-36.0); MEAN CELL VOLUME 74.6 fl (80-96); MONO % 8.1 % (3.8-10.2); NEUT % 71.4 % (42.8-82.8); PLATELET COUNT 212 K/MM3 (134-434); RBC 4.75 M/mm3 (3.60-5.2); WHITE BLOOD COUNT 8.2 K/mm3 (4.0-10.0)
[2017-12-22] MEDS: FERROUS SO4 325 MG TABLET (FP) PO SCH ×2 (08:29→17:18)
[2017-12-22 08:38] LABS: ALBUMIN 2.7 g/dl (3.4-5.0); ANION GAP 8 (8-16); BLOOD UREA NITROGEN 13 mg/dL (7-18); CALCIUM 9.1 mg/dL (8.5-10.1); CHLORIDE 105 mmol/L (98-107); CO2 30 mmol/L (21-32); CREATININE 0.5 mg/dL (0.55-1.02); GLUCOSE,RANDOM 167 mg/dL (74-106); POTASSIUM 3.6 mmol/L (3.5-5.1); SGOT/AST 38 U/L (15-37); SGPT/ALT 57 U/L (12-78); SODIUM 143 mmol/L (136-145)
[2017-12-22 08:48] LABS: ALK PHOS 147 U/L (45-117); BILIRUBIN,TOTAL 0.2 mg/dL (0.2-1.0); TOT PROT 6.2 g/dl (6.4-8.2)
[2017-12-22 09:38] LABS: MACROCYTOSIS 0; PLATELET ESTIMATE NORMAL; TEAR DROP CELLS 1+
[2017-12-22] MEDS ORDERED: cefTRIAXone SODIUM 1 GM VIAL ONE (09:45)
[2017-12-22] MEDS ORDERED: DEXTROSE 5%-WATER - 50 ML IVPB ONE (09:46)
[2017-12-22] MEDS: CEFTRIAXONE 1 GM in DEXTROSE 5%-WATER - 50 ML IVPB SCH (10:32)
[2017-12-22] MEDS: LOSARTAN POTASSIUM 50 MG TABLET (FP) PO SCH (10:36)
[2017-12-22] MEDS: HYDROCHLOROTHIAZIDE 25 MG TABLET (FP) PO SCH (10:36)
[2017-12-22] MEDS: levETIRAcetam 500 MG TABLET (FP) PO SCH ×2 (10:36→22:08)
[2017-12-22] MEDS: amLODIPine BESYLATE 5 MG TABLET (FP) PO SCH (10:37)
--- NOTE | 2017-12-22 11:47 | PN ---
Progress Note, Physician History of Present Illness: tired but comfortable no complaints sleepy - Current Medication List Current Medications: Active Medications Acetaminophen (Tylenol -) 650 mg PO Q6H PRN PRN Reason: HEADACHE/PAIN LEVEL 5-10 Last Admin: 12/21/17 18:10 Dose: 650 mg Amlodipine Besylate (Norvasc -) 5 mg PO DAILY [facility] Last Admin: 12/22/17 10:37 Dose: 5 mg Dexamethasone (Decadron -) 4 mg PO TID [facility] Last Admin: 12/22/17 06:23 Dose: 4 mg Docusate Sodium (Colace -) 100 mg PO TID [facility] Last Admin: 12/22/17 06:23 Dose: 100 mg Ferrous Sulfate (Feosol -) 325 mg PO BIDWM [facility] Last Admin: 12/22/17 08:29 Dose: 325 mg Hydrochlorothiazide (Hctz -) 25 mg PO DAILY [facility] Last Admin: 12/22/17 10:36 Dose: 25 mg Ceftriaxone Sodium 1 gm/ (Dextrose) 50 mls @ 200 mls/hr IVPB DAILY [facility]; Protocol Last Admin: 12/22/17 10:32 Dose: 200 mls/hr Insulin Aspart (Novolog Vial Sliding Scale -) 1 vial SQ ACHS [facility]; Protocol Last Admin: 12/22/17 06:25 Dose: 4 units Insulin Detemir (Levemir Vial) 27 units SQ HS [facility] Last Admin: 12/21/17 21:18 Dose: 27 units Insulin Detemir (Levemir Vial) 35 units SQ AM [facility] Last Admin: 12/22/17 06:24 Dose: 35 units Levetiracetam (Keppra -) 500 mg PO BID [facility] Last Admin: 12/22/17 10:36 Dose: 500 mg Levothyroxine Sodium (Synthroid -) 25 mcg PO DAILY@0700 [facility] Last Admin: 12/22/17 06:23 Dose: 25 mcg Losartan Potassium (Cozaar -) 100 mg PO DAILY [facility] Last Admin: 12/22/17 10:36 Dose: 100 mg - Objective Vital Signs: Vital Signs Temperature 98.4 F 12/22/17 06:20 Pulse Rate 61 12/22/17 06:20 Respiratory Rate 20 12/22/17 06:20 Blood Pressure 144/80 12/22/17 06:20 O2 Sat by Pulse Oximetry (%) 97 12/21/17 21:00 Constitutional: Yes: No Distress, Calm Cardiovascular: Yes: Regular Rate and Rhythm Respiratory: Yes: Regular, On Nasal O2 Gastrointestinal: Yes: Normal Bowel Sounds, Soft Musculoskeletal: Yes: WNL Extremities: Yes: WNL Neurological: Yes: Alert Labs: CBC, BMP 12/22/17 07:18 12/22/17 07:18 INR, PTT INR 1.04 (0.82-1.09) 12/17/17 10:30 Assessment/Plan Patient is a 57 year old female with a significant past medical history of breast cancer with metastatic disease to the brain with treatment with sterotactic RT, right parietal craniotomy for brain tumor. Her other history includes diabetes mellitus, hypothyroidism, vasogenic cerebral edema, hypertension and UTIs. She is brought into the ED today for headaches, left hip discomfort and right leg pain. Metastatic brain cancer Lower extremity pain/discomfort: uti Hypothyroidism, Hypertension dm plan' continue current mgmt will switch to oral abx physio monitor for confusion rest as per the team
[2017-12-22] MEDS ORDERED: INSULIN (NOVOLOG) ASPART 100 UNITS/ML 10ML VIAL ONE ×2 (11:49→17:15)
[2017-12-22] MEDS: ACETAMINOPHEN 325 MG TABLET (FP) PO PRN (16:10)
[2017-12-22] MEDS: AMOX TR/POT CLAV 875MG/125MG TABLETS (FP) PO SCH (17:17)
--- NOTE | 2017-12-22 19:22 | PN ---
Progress Note, Physician History of Present Illness: Pt is lethargic - Current Medication List Current Medications: Active Medications Acetaminophen (Tylenol -) 650 mg PO Q6H PRN PRN Reason: HEADACHE/PAIN LEVEL 5-10 Last Admin: 12/22/17 16:10 Dose: 650 mg Amlodipine Besylate (Norvasc -) 5 mg PO DAILY [facility] Last Admin: 12/22/17 10:37 Dose: 5 mg Amoxicillin/Clavulanate Potassium (Augmentin - 875mg Tablet) 1 tab PO BID@0800, 1730 [facility] Last Admin: 12/22/17 17:17 Dose: 1 tab Dexamethasone (Decadron -) 4 mg PO TID [facility] Last Admin: 12/22/17 16:05 Dose: 4 mg Docusate Sodium (Colace -) 100 mg PO TID [facility] Last Admin: 12/22/17 16:05 Dose: 100 mg Ferrous Sulfate (Feosol -) 325 mg PO BIDWM [facility] Last Admin: 12/22/17 17:18 Dose: 325 mg Hydrochlorothiazide (Hctz -) 25 mg PO DAILY [facility] Last Admin: 12/22/17 10:36 Dose: 25 mg Insulin Aspart (Novolog Vial Sliding Scale -) 1 vial SQ [facility]; Protocol Last Admin: 12/22/17 17:19 Dose: 8 units Insulin Detemir (Levemir Vial) 27 units SQ HS [facility] Last Admin: 12/21/17 21:18 Dose: 27 units Insulin Detemir (Levemir Vial) 35 units SQ AM [facility] Last Admin: 12/22/17 06:24 Dose: 35 units Levetiracetam (Keppra -) 500 mg PO BID [facility] Last Admin: 12/22/17 10:36 Dose: 500 mg Levothyroxine Sodium (Synthroid -) 25 mcg PO DAILY@0700 [facility] Last Admin: 12/22/17 06:23 Dose: 25 mcg Losartan Potassium (Cozaar -) 100 mg PO DAILY [facility] Last Admin: 12/22/17 10:36 Dose: 100 mg - Objective Vital Signs: Vital Signs Temperature 97.3 F L 12/22/17 19:13 Pulse Rate 74 12/22/17 19:13 Respiratory Rate 19 12/22/17 19:13 Blood Pressure 154/91 12/22/17 19:13 O2 Sat by Pulse Oximetry (%) 97 12/21/17 21:00 Neck: Yes: WNL, Supple Cardiovascular: Yes: WNL, Regular Rate and Rhythm Respiratory: Yes: WNL, Regular, CTA Bilaterally Gastrointestinal: Yes: WNL, Normal Bowel Sounds, Soft Labs: CBC, BMP 12/22/17 07:18 12/22/17 07:18 INR, PTT INR 1.04 (0.82-1.09) 12/17/17 10:30 Problem List - Problems (1) Sepsis Code(s): A41.9 - SEPSIS, UNSPECIFIED ORGANISM Qualifiers: Sepsis type: sepsis due to unspecified organism Qualified Code(s): A41.9 - Sepsis, unspecified organism (2) Anemia Code(s): D64.9 - ANEMIA, UNSPECIFIED Qualifiers: Anemia type: unspecified type Qualified Code(s): D64.9 - Anemia, unspecified (3) Breast CA Code(s): C50.919 - MALIGNANT NEOPLASM OF UNSP SITE OF UNSPECIFIED FEMALE BREAST Qualifiers: Breast location: overlapping sites of breast Laterality: right (4) Cerebral edema Code(s): G93.6 - CEREBRAL EDEMA (5) Diabetes Code(s): E11.9 - TYPE 2 DIABETES MELLITUS WITHOUT COMPLICATIONS Qualifiers: Diabetes mellitus type: type 2 Diabetes mellitus complication status: without complication (6) Generalized weakness Code(s): R53.1 - WEAKNESS (7) Hypertension Code(s): I10 - ESSENTIAL (PRIMARY) HYPERTENSION (8) Hypothyroidism Code(s): E03.9 - HYPOTHYROIDISM, UNSPECIFIED
[2017-12-22] MEDS ORDERED: INSULIN (LEVEMIR) 100 UNITS/ML UNITS SQ SCH (22:00)
[2017-12-23] MEDS: LEVOTHYROXINE NA 25 MCG TABLET (FP) PO SCH (06:11)
[2017-12-23] MEDS: DEXAMETHASONE 4 MG TABLET (FP) PO SCH ×3 (06:11→21:42)
[2017-12-23] MEDS: DOCUSATE SODIUM 100 MG CAPSULE (FP) PO SCH ×3 (06:11→21:42)
[2017-12-23] MEDS: INSULIN SLIDING SCALE (NOVOLOG) 1 VIAL SQ SCH ×4 (06:15→21:46)
[2017-12-23] MEDS: AMOX TR/POT CLAV 875MG/125MG TABLETS (FP) PO SCH ×2 (08:53→17:05)
[2017-12-23] MEDS: FERROUS SO4 325 MG TABLET (FP) PO SCH ×2 (08:53→17:05)
--- NOTE | 2017-12-23 09:01 | PN ---
Progress Note, Physician History of Present Illness: Infectious Disease Progress Note: Pt seen and examined. Chart reviewed. Pt is alert today, without any specific complaints. Remains afebrile. - Current Medication List Current Medications: Active Medications Acetaminophen (Tylenol -) 650 mg PO Q6H PRN PRN Reason: HEADACHE/PAIN LEVEL 5-10 Last Admin: 12/22/17 16:10 Dose: 650 mg Amlodipine Besylate (Norvasc -) 5 mg PO DAILY [facility] Last Admin: 12/22/17 10:37 Dose: 5 mg Amoxicillin/Clavulanate Potassium (Augmentin - 875mg Tablet) 1 tab PO BID@0800, 1730 [facility] Last Admin: 12/23/17 08:53 Dose: 1 tab Dexamethasone (Decadron -) 4 mg PO TID [facility] Last Admin: 12/23/17 06:11 Dose: 4 mg Docusate Sodium (Colace -) 100 mg PO TID [facility] Last Admin: 12/23/17 06:11 Dose: 100 mg Ferrous Sulfate (Feosol -) 325 mg PO BIDWM [facility] Last Admin: 12/23/17 08:53 Dose: 325 mg Hydrochlorothiazide (Hctz -) 25 mg PO DAILY [facility] Last Admin: 12/22/17 10:36 Dose: 25 mg Insulin Aspart (Novolog Vial Sliding Scale -) 1 vial SQ [facility]; Protocol Last Admin: 12/23/17 06:15 Dose: 4 units Insulin Detemir (Levemir Vial) 45 units SQ [facility] Last Admin: 12/22/17 22:18 Dose: 45 units Levetiracetam (Keppra -) 500 mg PO BID [facility] Last Admin: 12/22/17 22:08 Dose: 500 mg Levothyroxine Sodium (Synthroid -) 25 mcg PO DAILY@0700 [facility] Last Admin: 12/23/17 06:11 Dose: 25 mcg Losartan Potassium (Cozaar -) 100 mg PO DAILY [facility] Last Admin: 12/22/17 10:36 Dose: 100 mg - Objective Vital Signs: Vital Signs Temperature 97.3 F L 12/22/17 19:13 Pulse Rate 74 12/22/17 19:13 Respiratory Rate 19 12/22/17 19:13 Blood Pressure 154/91 12/22/17 19:13 O2 Sat by Pulse Oximetry (%) 100 12/22/17 21:00 Constitutional: Yes: No Distress, Calm Cardiovascular: Yes: Regular Rate and Rhythm Respiratory: Yes: Regular Gastrointestinal: Yes: Normal Bowel Sounds, Soft Genitourinary: Yes: WNL Musculoskeletal: Yes: WNL Extremities: Yes: WNL, Other (SCDs in place) Integumentary: Yes: WNL Neurological: Yes: Alert, Oriented Labs: CBC, BMP 12/22/17 07:18 12/22/17 07:18 INR, PTT INR 1.04 (0.82-1.09) 12/17/17 10:30 - ....Imaging Chest X-ray: Report Reviewed Problem List - Problems (1) Breast CA Code(s): C50.919 - MALIGNANT NEOPLASM OF UNSP SITE OF UNSPECIFIED FEMALE BREAST Qualifiers: Breast location: overlapping sites of breast Laterality: right (2) Diabetes Code(s): E11.9 - TYPE 2 DIABETES MELLITUS WITHOUT COMPLICATIONS Qualifiers: Diabetes mellitus type: type 2 Diabetes mellitus complication status: without complication (3) Hyperglycemia Code(s): R73.9 - HYPERGLYCEMIA, UNSPECIFIED (4) Hypothyroidism Code(s): E03.9 - HYPOTHYROIDISM, UNSPECIFIED (5) Intracranial mass Code(s): R90.0 - INTCRN SPACE-OCCUPYING LESION FOUND ON DX IMAGING OF CNSL (6) UTI (urinary tract infection) Code(s): N39.0 - URINARY TRACT INFECTION, SITE NOT SPECIFIED Assessment/Plan 57 year old female with PMH of breast cancer with metastasis to the brain with treatment with sterotactic RT s/p right parietal craniotomy for brain tumor. Pt also with diabetes mellitus, hypothyroidism, vasogenic cerebral edema, hypertension and history of UTIs. Admitted with headache, hyperglycemia, LE pain Metastatic brain cancer UTI DM Lower extremity pain Hypothyroidism Hypertension - continue po antibiotics at this time - pt afebrile, hemodynamically stable at this time - maintain glycemic control
[2017-12-23] MEDS: amLODIPine BESYLATE 5 MG TABLET (FP) PO SCH (09:45)
[2017-12-23] MEDS: levETIRAcetam 500 MG TABLET (FP) PO SCH ×2 (09:45→21:42)
[2017-12-23] MEDS: HYDROCHLOROTHIAZIDE 25 MG TABLET (FP) PO SCH (09:45)
[2017-12-23] MEDS: LOSARTAN POTASSIUM 50 MG TABLET (FP) PO SCH (09:45)
[2017-12-23] MEDS ORDERED: INSULIN (NOVOLOG) ASPART 100 UNITS/ML 10ML VIAL ONE ×2 (11:43→21:39)
[2017-12-23] MEDS: ONDANSETRON 4 MG/2 ML VIAL IVPUSH PRN (12:27)
[2017-12-23] MEDS: ACETAMINOPHEN 325 MG TABLET (FP) PO PRN (13:09)
--- NOTE | 2017-12-23 16:47 | PN ---
Progress Note, Physician History of Present Illness: No new complaints - Current Medication List Current Medications: Active Medications Acetaminophen (Tylenol -) 650 mg PO Q6H PRN PRN Reason: HEADACHE/PAIN LEVEL 5-10 Last Admin: 12/23/17 13:09 Dose: 650 mg Amlodipine Besylate (Norvasc -) 5 mg PO DAILY [facility] Last Admin: 12/23/17 09:45 Dose: 5 mg Amoxicillin/Clavulanate Potassium (Augmentin - 875mg Tablet) 1 tab PO BID@0800, 1730 [facility] Last Admin: 12/23/17 08:53 Dose: 1 tab Dexamethasone (Decadron -) 4 mg PO TID [facility] Last Admin: 12/23/17 14:09 Dose: 4 mg Docusate Sodium (Colace -) 100 mg PO TID [facility] Last Admin: 12/23/17 14:09 Dose: 100 mg Ferrous Sulfate (Feosol -) 325 mg PO BIDWM [facility] Last Admin: 12/23/17 08:53 Dose: 325 mg Hydrochlorothiazide (Hctz -) 25 mg PO DAILY [facility] Last Admin: 12/23/17 09:45 Dose: 25 mg Insulin Aspart (Novolog Vial Sliding Scale -) 1 vial SQ [facility]; Protocol Last Admin: 12/23/17 11:43 Dose: 8 units Insulin Detemir (Levemir Vial) [address] [facility] Last Admin: 12/22/17 22:18 Dose: 45 units Levetiracetam (Keppra -) 500 mg PO BID [facility] Last Admin: 12/23/17 09:45 Dose: 500 mg Levothyroxine Sodium (Synthroid -) 25 mcg PO DAILY@0700 [facility] Last Admin: 12/23/17 06:11 Dose: 25 mcg Losartan Potassium (Cozaar -) 100 mg PO DAILY [facility] Last Admin: 12/23/17 09:45 Dose: 100 mg Ondansetron HCl (Zofran Injection) 4 mg IVPUSH Q6H PRN PRN Reason: NAUSEA Last Admin: 12/23/17 12:27 Dose: 4 mg - Objective Vital Signs: Vital Signs Temperature 99 F 12/23/17 15:13 Pulse Rate 84 12/23/17 15:13 Respiratory Rate 18 12/23/17 15:13 Blood Pressure 161/97 12/23/17 15:13 O2 Sat by Pulse Oximetry (%) 100 08/04/18 09:00 Neck: Yes: WNL, Supple Cardiovascular: Yes: WNL, Regular Rate and Rhythm Respiratory: Yes: WNL, Regular, CTA Bilaterally Gastrointestinal: Yes: WNL, Normal Bowel Sounds, Soft Labs: CBC, BMP 12/22/17 07:18 12/22/17 07:18 INR, PTT INR 1.04 (0.82-1.09) 12/17/17 10:30 Problem List - Problems (1) Sepsis Assessment/Plan: Urine culture (+) for Klebsiella Cont PO Augmentin Long d/w pt and her family( and daughter) and they have all agreed to placement in SNF Code(s): A41.9 - SEPSIS, UNSPECIFIED ORGANISM Qualifiers: Sepsis type: sepsis due to unspecified organism Qualified Code(s): A41.9 - Sepsis, unspecified organism (2) Diabetes Assessment/Plan: Uncontrolled hyperglycemia also due to steroid use Levemir increased to BID dosing Cont metformin Cont sliding scale w/ coverage Endo consult noted Code(s): E11.9 - TYPE 2 DIABETES MELLITUS WITHOUT COMPLICATIONS Qualifiers: Diabetes mellitus type: type 2 Diabetes mellitus complication status: without complication (3) Breast CA Assessment/Plan: Mets to the brain Cont decadron/keppra No further RT As per onco Code(s): C50.919 - MALIGNANT NEOPLASM OF UNSP SITE OF UNSPECIFIED FEMALE BREAST Qualifiers: Breast location: overlapping sites of breast Laterality: right (4) Cerebral edema Assessment/Plan: Slight improvement on ct scan Cont decadron/keppra Code(s): G93.6 - CEREBRAL EDEMA (5) Anemia Assessment/Plan: Due to chronic dz(cancer) Cont Feosol Code(s): D64.9 - ANEMIA, UNSPECIFIED Qualifiers: Anemia type: unspecified type Qualified Code(s): D64.9 - Anemia, unspecified (6) Generalized weakness Assessment/Plan: PT eval Will need placement for rehab Code(s): R53.1 - WEAKNESS (7) Hypertension Assessment/Plan: BP stable Cont norvasc/losartan/hctz Code(s): I10 - ESSENTIAL (PRIMARY) HYPERTENSION (8) Hypothyroidism Assessment/Plan: Cont levothyroxine TSH within normal range Code(s): E03.9 - HYPOTHYROIDISM, UNSPECIFIED
--- NOTE | 2017-12-23 18:08 | CONSULT ---
Consult Consult Specialty:: endocrine Referred by:: jeremías myers m.d. Reason for Consultation:: diabetes mellitus hyperglycemia - History of Present Illness Chief Complaint: difficulty walking and high sugars History of Present Illness: 57 year old female with a significant past medical history of diabetes mellitus ,diabetic neuropathy, hypothyroidism,breast cancer with metastatic disease to the brain with treatment with sterotactic RT, right parietal craniotomy for brain tumor, vasogenic cerebral edema, hypertension and UTIs. She has difficultly walking gait imbalance,weakness,denies nausea vomiting or hypoglycemia. 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 (NUT TAPPER mets in 2015- treated with stereotactic RT) Cardio/Vascular: Yes: HTN ...: No Endocrine: Yes: Diabetes Mellitus - Past Surgical History Past Surgical History: Yes: Breast Biopsy, - Alcohol/Substance Use Hx Alcohol Use: No History of Substance Use: reports: None - Smoking History Smoking history: Never smoked Have you smoked in the past 12 months: No Aproximately how many cigarettes per day: 0 - Social History Usual Living Arrangement: With Spouse ADL: Support Services 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 History of Recent Travel: No Home Medications - Allergies Allergies/Adverse Reactions: Allergies Allergy/AdvReac Type Severity Reaction Status Date / Time Iodinated Contrast- Oral and Allergy Verified 12/17/17 08:41 IV Dye oxycodone HCl [From Percocet] Allergy Verified 12/17/17 08:41 - Home Medications Home Medications: Ambulatory Orders Ferrous Sulfate 325 mg PO BID 03/22/16 Omeprazole 40 mg PO DAILY 03/22/16 Capecitabine 1,000 mg PO BID 12/16/16 Lapatinib Ditosylate [Tykerb] 1,250 mg PO DAILY 12/16/16 levETIRAcetam [Keppra -] 500 mg PO BID tablet 12/25/16 Lidocaine 5% Patch [Lidoderm -] 1 patch TP DAILY #7 patch 06/23/17 Losartan/Hydrochlorothiazide [Losartan-Hctz 100-25 mg Tab] 1 each PO DAILY 10/03 Acetaminophen [Tylenol .Regular Strength -] 650 mg PO Q6H PRN #90 tablet Amlodipine Besylate [Norvasc -] 5 mg PO DAILY #30 tablet 10/13/17 Dexamethasone [Decadron -] 4 mg PO TID #60 tablet 10/13/17 Docusate Sodium [Colace -] 100 mg PO TID #90 capsule 10/13/17 Insulin (Levemir) [Levemir Vial] 27 units SQ HS #1 ml 10/13/17 Insulin (Levemir) [Levemir Vial] 35 units SQ AM #1 ml 10/13/17 Insulin Sliding Scale [Novolog Vial Sliding Scale -] 1 vial SQ ACHS units 10/13 Levothyroxine [Synthroid -] 25 mcg PO DAILY@0700 #30 tablet 10/13/17 Family Disease History - Family Disease History Family Disease History: Other: Grandparent (asthma), Father ( of unknown cause), Mother (htn), Brother (3B healthy and living), Sister (4S healthy and living) Review of Systems - Review of Systems Constitutional: reports: Lethargy, Weakness Eyes: reports: No Symptoms HENT: reports: No Symptoms Neck: reports: Swollen Glands Cardiovascular: reports: Shortness of Breath Respiratory: reports: Exercise Intolerance, SOB on Exertion Gastrointestinal: reports: Constipation Breasts: reports: Skin Changes Integumentary: reports: No Symptoms Neurological: reports: Headache, Numbness, Unsteady Gait, Weakness Endocrine: reports: Unexplained Weight Gain Physical Exam Vital Signs: Vital Signs Temperature 99 F 12/23/17 15:13 Pulse Rate 84 12/23/17 15:13 Respiratory Rate 18 12/23/17 15:13 Blood Pressure 161/97 12/23/17 15:13 O2 Sat by Pulse Oximetry (%) 100 12/23/17 09:00 Constitutional: Yes: Calm Eyes: Yes: EOM Intact HENT: Yes: Normocephalic Neck: Yes: Trachea Midline Respiratory: Yes: CTA Bilaterally Gastrointestinal: Yes: Normal Bowel Sounds ...Rectal Exam: Yes: Deferred Renal/: Yes: WNL Breast(s): Yes: WNL Musculoskeletal: Yes: Muscle Pain, Muscle Weakness Neurological: Yes: Alert, Oriented Psychiatric: Yes: Alert, Oriented Labs: CBC, BMP 12/22/17 07:18 12/22/17 07:18 Problem List - Problems (1) Diabetes mellitus type 2 with hyperosmolarity, uncontrolled Code(s): E11.00 - TYPE 2 DIAB W HYPROSM W/O NONKET HYPRGLY-HYPROS COMA ([facility]); E11.65 - TYPE 2 DIABETES MELLITUS WITH HYPERGLYCEMIA Qualifiers: Diabetes mellitus fci insulin use: unspecified fci insulin use status (2) Sepsis Code(s): A41.9 - SEPSIS, UNSPECIFIED ORGANISM Qualifiers: Sepsis type: sepsis due to unspecified organism Qualified Code(s): A41.9 - Sepsis, unspecified organism (3) Bacteremia Code(s): R78.81 - BACTEREMIA (4) Breast CA Code(s): C50.919 - MALIGNANT NEOPLASM OF UNSP SITE OF UNSPECIFIED FEMALE BREAST Qualifiers: Breast location: overlapping sites of breast Laterality: right (5) Chest pain, atypical Code(s): R07.89 - OTHER CHEST PAIN (6) Constipation Code(s): K59.00 - CONSTIPATION, UNSPECIFIED Qualifiers: Constipation type: slow transit constipation Qualified Code(s): K59.01 - Slow transit constipation Assessment/Plan Current Active Problems Diabetes mellitus type 2 with hyperosmolarity, uncontrolled (Acute) Sepsis (Acute) breast cancer with mets htn morbid obesity Laboratory Results - last 24 hr 12/23/17 12/23/17 12/23/17 06:13 11:40 17:04 POC Glucometer 209 302 294 Laboratory Tests 12/22/17 12/22/17 12/22/17 07:18 07:18 07:18 WBC 8.2 RBC 4.75 Hgb 11.6 Hct 35.4 MCV 74.6 L MCH 24.5 L MCHC 32.8 RDW 17.0 H Plt Count 212 MPV 8.0 Absolute Neuts (auto) 5.9 Sodium 143 Potassium 3.6 Chloride 105 Carbon Dioxide 30 Anion Gap 8 BUN 13 Creatinine 0.5 L Creat Clearance w eGFR > 60 POC Glucometer Random Glucose 167 H Hemoglobin A1c % 13.4 H 12/22/17 12/22/17 12/23/17 11:43 17:01 06:13 WBC RBC Hgb Hct MCV MCH MCHC RDW Plt Count MPV Absolute Neuts (auto) Sodium Potassium Chloride Carbon Dioxide Anion Gap BUN Creatinine Creat Clearance w eGFR POC Glucometer 324 320 209 Random Glucose Hemoglobin A1c % plan: bgm qid novolog scale dose levemir 40 units am levemir 25 units hs metformin 500mg bid continue synthroid ck tsh free t4
[2017-12-23] MEDS: INSULIN (LEVEMIR) 100 UNITS/ML UNITS SQ SCH (21:45)
[2017-12-24] MEDS ORDERED: PT OWN MED DRAWER 7, Y5N ONE (04:31)
[2017-12-24] MEDS: DEXAMETHASONE 4 MG TABLET (FP) PO SCH ×3 (05:13→21:43)
[2017-12-24] MEDS: DOCUSATE SODIUM 100 MG CAPSULE (FP) PO SCH ×3 (05:13→21:43)
[2017-12-24] MEDS: INSULIN SLIDING SCALE (NOVOLOG) 1 VIAL SQ SCH ×4 (06:02→21:56)
[2017-12-24] MEDS: LEVOTHYROXINE NA 25 MCG TABLET (FP) PO SCH (06:03)
[2017-12-24] MEDS: metFORMIN HCL 500 MG TABLET (FP) PO SCH ×2 (06:04→17:04)
[2017-12-24] MEDS ORDERED: INSULIN (LEVEMIR) 100 UNITS/ML UNITS SQ SCH (07:00)
[2017-12-24] MEDS: FERROUS SO4 325 MG TABLET (FP) PO SCH ×2 (08:49→17:07)
[2017-12-24] MEDS: AMOX TR/POT CLAV 875MG/125MG TABLETS (FP) PO SCH ×2 (08:49→17:07)
[2017-12-24] MEDS: LOSARTAN POTASSIUM 50 MG TABLET (FP) PO SCH (10:09)
[2017-12-24] MEDS: amLODIPine BESYLATE 5 MG TABLET (FP) PO SCH (10:10)
[2017-12-24] MEDS: levETIRAcetam 500 MG TABLET (FP) PO SCH ×2 (10:10→21:43)
[2017-12-24] MEDS: HYDROCHLOROTHIAZIDE 25 MG TABLET (FP) PO SCH (10:10)
--- NOTE | 2017-12-24 12:39 | PN ---
Progress Note, Physician History of Present Illness: Infectious Disease Progress note: Pt states she feels better. Hate a full lunch. Has no specific complaints. - Current Medication List Current Medications: Active Medications Acetaminophen (Tylenol -) 650 mg PO Q6H PRN PRN Reason: HEADACHE/PAIN LEVEL 5-10 Last Admin: 12/23/17 13:09 Dose: 650 mg Amlodipine Besylate (Norvasc -) 5 mg PO DAILY [facility] Last Admin: 12/24/17 10:10 Dose: 5 mg Amoxicillin/Clavulanate Potassium (Augmentin - 875mg Tablet) 1 tab PO BID@0800, 1730 [facility] Last Admin: 12/24/17 08:49 Dose: 1 tab Dexamethasone (Decadron -) 4 mg PO TID [facility] Last Admin: 12/24/17 05:13 Dose: 4 mg Docusate Sodium (Colace -) 100 mg PO TID [facility] Last Admin: 12/24/17 05:13 Dose: 100 mg Ferrous Sulfate (Feosol -) 325 mg PO BIDWM [facility] Last Admin: 12/24/17 08:49 Dose: 325 mg Hydrochlorothiazide (Hctz -) 25 mg PO DAILY [facility] Last Admin: 12/24/17 10:10 Dose: 25 mg Insulin Aspart (Novolog Vial Sliding Scale -) 1 vial SQ [facility]; Protocol Last Admin: 12/24/17 11:30 Dose: 9 unit Insulin Detemir (Levemir Vial) 40 units SQ ACBK [facility] Last Admin: 12/24/17 06:01 Dose: 20 unit Insulin Detemir (Levemir Vial) 25 units SQ HS [facility] Last Admin: 12/23/17 21:45 Dose: 25 unit Levetiracetam (Keppra -) 500 mg PO BID [facility] Last Admin: 12/24/17 10:10 Dose: 500 mg Levothyroxine Sodium (Synthroid -) 25 mcg PO DAILY@0700 [facility] Last Admin: 12/24/17 06:03 Dose: 25 mcg Losartan Potassium (Cozaar -) 100 mg PO DAILY [facility] Last Admin: 12/24/17 10:09 Dose: 100 mg Metformin HCl (Glucophage -) 500 mg PO BID@0700,1630 [facility] Last Admin: 12/24/17 06:04 Dose: 500 mg Ondansetron HCl (Zofran Injection) 4 mg IVPUSH Q6H PRN PRN Reason: NAUSEA Last Admin: 12/23/17 12:27 Dose: 4 mg - Objective Vital Signs: Vital Signs Temperature 98.5 F 12/24/17 10:00 Pulse Rate 83 12/24/17 10:00 Respiratory Rate 20 12/24/17 10:00 Blood Pressure 144/81 12/24/17 10:00 O2 Sat by Pulse Oximetry (%) 100 12/23/17 21:00 Constitutional: Yes: No Distress, Calm Cardiovascular: Yes: Regular Rate and Rhythm Respiratory: Yes: Regular Gastrointestinal: Yes: Normal Bowel Sounds, Soft Labs: CBC, BMP 12/22/17 07:18 12/22/17 07:18 INR, PTT INR 1.04 (0.82-1.09) 12/17/17 10:30 Problem List - Problems (1) Breast CA Code(s): C50.919 - MALIGNANT NEOPLASM OF UNSP SITE OF UNSPECIFIED FEMALE BREAST Qualifiers: Breast location: overlapping sites of breast Laterality: right (2) Diabetes Code(s): E11.9 - TYPE 2 DIABETES MELLITUS WITHOUT COMPLICATIONS Qualifiers: Diabetes mellitus type: type 2 Diabetes mellitus complication status: without complication (3) Hyperglycemia Code(s): R73.9 - HYPERGLYCEMIA, UNSPECIFIED (4) Hypothyroidism Code(s): E03.9 - HYPOTHYROIDISM, UNSPECIFIED (5) Intracranial mass Code(s): R90.0 - INTCRN SPACE-OCCUPYING LESION FOUND ON DX IMAGING OF CNSL (6) UTI (urinary tract infection) Code(s): N39.0 - URINARY TRACT INFECTION, SITE NOT SPECIFIED Assessment/Plan 57 year old female with PMH of breast cancer with metastasis to the brain with treatment with sterotactic RT s/p right parietal craniotomy for brain tumor. Pt also with diabetes mellitus, hypothyroidism, vasogenic cerebral edema, hypertension and history of UTIs. Admitted with headache, hyperglycemia, LE pain Metastatic brain cancer UTI DM Lower extremity pain Hypothyroidism Hypertension - continue augmentin x 2 more days - pt afebrile, stable at this time - maintain glycemic control
--- NOTE | 2017-12-24 16:09 | PN ---
Progress Note, Physician History of Present Illness: Pt is awake and responsive and family at bedside - Current Medication List Current Medications: Active Medications Acetaminophen (Tylenol -) 650 mg PO Q6H PRN PRN Reason: HEADACHE/PAIN LEVEL 5-10 Last Admin: 12/23/17 13:09 Dose: 650 mg Amlodipine Besylate (Norvasc -) 5 mg PO DAILY [facility] Last Admin: 12/24/17 10:10 Dose: 5 mg Amoxicillin/Clavulanate Potassium (Augmentin - 875mg Tablet) 1 tab PO BID@0800, 1730 [facility] Last Admin: 12/24/17 08:49 Dose: 1 tab Dexamethasone (Decadron -) 4 mg PO TID [facility] Last Admin: 12/24/17 13:46 Dose: 4 mg Docusate Sodium (Colace -) 100 mg PO TID [facility] Last Admin: 12/24/17 13:45 Dose: 100 mg Ferrous Sulfate (Feosol -) 325 mg PO BIDWM [facility] Last Admin: 12/24/17 08:49 Dose: 325 mg Hydrochlorothiazide (Hctz -) 25 mg PO DAILY [facility] Last Admin: 12/24/17 10:10 Dose: 25 mg Insulin Aspart (Novolog Vial Sliding Scale -) [address] [facility]; Protocol Last Admin: 12/24/17 11:30 Dose: 9 unit Insulin Detemir (Levemir Vial) 40 units SQ ACBK [facility] Last Admin: 12/24/17 06:01 Dose: 20 unit Insulin Detemir (Levemir Vial) 25 units SQ HS [facility] Last Admin: 12/23/17 21:45 Dose: 25 unit Levetiracetam (Keppra -) 500 mg PO BID [facility] Last Admin: 12/24/17 10:10 Dose: 500 mg Levothyroxine Sodium (Synthroid -) 25 mcg PO DAILY@0700 [facility] Last Admin: 12/24/17 06:03 Dose: 25 mcg Losartan Potassium (Cozaar -) 100 mg PO DAILY [facility] Last Admin: 12/24/17 10:09 Dose: 100 mg Metformin HCl (Glucophage -) 500 mg PO BID@0700,1630 [facility] Last Admin: 12/24/17 06:04 Dose: 500 mg Ondansetron HCl (Zofran Injection) 4 mg IVPUSH Q6H PRN PRN Reason: NAUSEA Last Admin: 12/23/17 12:27 Dose: 4 mg - Objective Vital Signs: Vital Signs Temperature 98.4 F 12/24/17 15:34 Pulse Rate 79 12/24/17 15:34 Respiratory Rate 20 12/24/17 15:34 Blood Pressure 138/83 12/24/17 15:34 O2 Sat by Pulse Oximetry (%) 100 12/24/17 09:00 Neck: Yes: WNL, Supple Cardiovascular: Yes: WNL, Regular Rate and Rhythm Respiratory: Yes: WNL, Regular, CTA Bilaterally Gastrointestinal: Yes: WNL, Normal Bowel Sounds, Soft Labs: CBC, BMP 12/22/17 07:18 12/22/17 07:18 INR, PTT INR 1.04 (0.82-1.09) 12/17/17 10:30 Problem List - Problems (1) Sepsis Assessment/Plan: Urine culture (+) for Klebsiella Cont PO Augmentin x 2 more days Long d/w pt and her family( and daughter) and they have all agreed to placement in SNF Will order PT eval for am DC planning to SNF in am Code(s): A41.9 - SEPSIS, UNSPECIFIED ORGANISM Qualifiers: Sepsis type: sepsis due to unspecified organism Qualified Code(s): A41.9 - Sepsis, unspecified organism (2) Anemia Assessment/Plan: Due to chronic dz(cancer) Cont Feosol Code(s): D64.9 - ANEMIA, UNSPECIFIED Qualifiers: Anemia type: unspecified type Qualified Code(s): D64.9 - Anemia, unspecified (3) Breast CA Assessment/Plan: Mets to the brain Cont decadron/keppra No further RT As per onco Code(s): C50.919 - MALIGNANT NEOPLASM OF UNSP SITE OF UNSPECIFIED FEMALE BREAST Qualifiers: Breast location: overlapping sites of breast Laterality: right (4) Cerebral edema Assessment/Plan: Slight improvement on ct scan Cont decadron/keppra Code(s): G93.6 - CEREBRAL EDEMA (5) Diabetes Assessment/Plan: Uncontrolled hyperglycemia also due to steroid use Levemir increased to BID dosing Cont metformin Cont sliding scale w/ coverage Endo consult noted Code(s): E11.9 - TYPE 2 DIABETES MELLITUS WITHOUT COMPLICATIONS Qualifiers: Diabetes mellitus type: type 2 Diabetes mellitus complication status: without complication (6) Generalized weakness Assessment/Plan: PT eval Will need placement for rehab Code(s): R53.1 - WEAKNESS (7) Hypertension Assessment/Plan: BP stable Cont norvasc/losartan/hctz Code(s): I10 - ESSENTIAL (PRIMARY) HYPERTENSION (8) Hypothyroidism Assessment/Plan: Cont levothyroxine TSH within normal range Code(s): E03.9 - HYPOTHYROIDISM, UNSPECIFIED
[2017-12-24] MEDS: ACETAMINOPHEN 325 MG TABLET (FP) PO PRN (17:49)
[2017-12-24] MEDS ORDERED: INSULIN (NOVOLOG) ASPART 100 UNITS/ML 10ML VIAL ONE (21:55)
--- NOTE | 2017-12-24 22:01 | PN ---
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,sugars high despite insulin doses - Current Medication List Current Medications: Active Medications Acetaminophen (Tylenol -) 650 mg PO Q6H PRN PRN Reason: HEADACHE/PAIN LEVEL 5-10 Last Admin: 12/24/17 17:49 Dose: 650 mg Amlodipine Besylate (Norvasc -) 5 mg PO DAILY [facility] Last Admin: 12/24/17 10:10 Dose: 5 mg Amoxicillin/Clavulanate Potassium (Augmentin - 875mg Tablet) 1 tab PO BID@0800, 1730 [facility] Last Admin: 12/24/17 17:07 Dose: 1 tab Dexamethasone (Decadron -) 4 mg PO TID [facility] Last Admin: 12/24/17 21:43 Dose: 4 mg Docusate Sodium (Colace -) 100 mg PO TID [facility] Last Admin: 12/24/17 21:43 Dose: 100 mg Ferrous Sulfate (Feosol -) 325 mg PO BIDWM [facility] Last Admin: 12/24/17 17:07 Dose: 325 mg Hydrochlorothiazide (Hctz -) 25 mg PO DAILY [facility] Last Admin: 12/24/17 10:10 Dose: 25 mg Insulin Aspart (Novolog Vial Sliding Scale -) 1 vial SQ [facility]; Protocol Last Admin: 12/24/17 21:56 Dose: 12 unit Insulin Detemir (Levemir Vial) 40 units SQ ACBK [facility] Last Admin: 12/24/17 06:01 Dose: 20 unit Insulin Detemir (Levemir Vial) 25 units SQ HS [facility] Last Admin: 12/23/17 21:45 Dose: 25 unit Levetiracetam (Keppra -) 500 mg PO BID [facility] Last Admin: 12/24/17 21:43 Dose: 500 mg Levothyroxine Sodium (Synthroid -) 25 mcg PO DAILY@0700 [facility] Last Admin: 12/24/17 06:03 Dose: 25 mcg Losartan Potassium (Cozaar -) 100 mg PO DAILY [facility] Last Admin: 12/24/17 10:09 Dose: 100 mg Metformin HCl (Glucophage -) 500 mg PO BID@0700,1630 [facility] Last Admin: 12/24/17 17:04 Dose: 500 mg Ondansetron HCl (Zofran Injection) 4 mg IVPUSH Q6H PRN PRN Reason: NAUSEA Last Admin: 12/23/17 12:27 Dose: 4 mg - Objective Vital Signs: Vital Signs Temperature 98.2 F 12/24/17 20:00 Pulse Rate 89 12/24/17 20:00 Respiratory Rate 21 12/24/17 20:00 Blood Pressure 133/75 12/24/17 20:00 O2 Sat by Pulse Oximetry (%) 100 12/24/17 20:03 Constitutional: Yes: Calm Eyes: Yes: EOM Intact HENT: Yes: Normocephalic Neck: Yes: WNL Cardiovascular: Yes: Regular Rate and Rhythm Respiratory: Yes: CTA Bilaterally Gastrointestinal: Yes: WNL ...Rectal Exam: Yes: Deferred Musculoskeletal: Yes: Muscle Weakness Extremities: Yes: Delayed Capillary Refill, Other Labs: CBC, BMP 12/22/17 07:18 12/22/17 07:18 INR, PTT INR 1.04 (0.82-1.09) 12/17/17 10:30 Problem List - Problems (1) Diabetes mellitus type 2 with hyperosmolarity, uncontrolled Code(s): E11.00 - TYPE 2 DIAB W HYPROSM W/O NONKET HYPRGLY-HYPROS COMA ([facility]); E11.65 - TYPE 2 DIABETES MELLITUS WITH HYPERGLYCEMIA Qualifiers: Diabetes mellitus mcfp insulin use: unspecified mcfp insulin use status (2) Sepsis Code(s): A41.9 - SEPSIS, UNSPECIFIED ORGANISM Qualifiers: Sepsis type: sepsis due to unspecified organism Qualified Code(s): A41.9 - Sepsis, unspecified organism (3) Bacteremia Code(s): R78.81 - BACTEREMIA (4) Breast CA Code(s): C50.919 - MALIGNANT NEOPLASM OF UNSP SITE OF UNSPECIFIED FEMALE BREAST Qualifiers: Breast location: overlapping sites of breast Laterality: right (5) Chest pain, atypical Code(s): R07.89 - OTHER CHEST PAIN (6) Constipation Code(s): K59.00 - CONSTIPATION, UNSPECIFIED Qualifiers: Constipation type: slow transit constipation Qualified Code(s): K59.01 - Slow transit constipation Assessment/Plan Current Active Problems Diabetes mellitus type 2 with hyperosmolarity, uncontrolled (Acute) Sepsis (Acute) Laboratory Results - last 24 hr 12/19/17 12/19/17 12/20/17 16:21 21:33 17:07 POC Glucometer 414 414 424 12/20/17 12/22/17 12/22/17 21:09 22:10 22:12 POC Glucometer 471 409 434 12/23/17 12/24/17 12/24/17 21:44 05:16 11:28 POC Glucometer 350 236 330 12/24/17 17:01 POC Glucometer 340 plan:levemir 45 units am levemir 35 units hs hold if sugar below 90mg/dl bgm dose titration
[2017-12-24] MEDS: INSULIN (LEVEMIR) 100 UNITS/ML UNITS SQ SCH (22:04)
[2017-12-25] MEDS: ACETAMINOPHEN 325 MG TABLET (FP) PO PRN ×2 (01:18→22:14)
[2017-12-25] MEDS: DOCUSATE SODIUM 100 MG CAPSULE (FP) PO SCH ×3 (06:31→22:14)
[2017-12-25] MEDS: metFORMIN HCL 500 MG TABLET (FP) PO SCH ×2 (06:31→16:41)
[2017-12-25] MEDS: LEVOTHYROXINE NA 25 MCG TABLET (FP) PO SCH (06:31)
[2017-12-25] MEDS: DEXAMETHASONE 4 MG TABLET (FP) PO SCH ×3 (06:32→22:14)
[2017-12-25] MEDS: INSULIN SLIDING SCALE (NOVOLOG) 1 VIAL SQ SCH ×4 (06:34→22:13)
[2017-12-25] MEDS: INSULIN (LEVEMIR) 100 UNITS/ML UNITS SQ SCH ×2 (06:35→22:12)
[2017-12-25] MEDS ORDERED: INSULIN (NOVOLOG) ASPART 100 UNITS/ML 10ML VIAL ONE (06:42)
[2017-12-25] MEDS: FERROUS SO4 325 MG TABLET (FP) PO SCH ×2 (07:37→16:41)
[2017-12-25] MEDS: AMOX TR/POT CLAV 875MG/125MG TABLETS (FP) PO SCH ×2 (07:37→16:41)
[2017-12-25] MEDS: levETIRAcetam 500 MG TABLET (FP) PO SCH ×2 (12:14→22:14)
[2017-12-25] MEDS: LOSARTAN POTASSIUM 50 MG TABLET (FP) PO SCH (12:14)
[2017-12-25] MEDS: HYDROCHLOROTHIAZIDE 25 MG TABLET (FP) PO SCH (12:14)
[2017-12-25] MEDS: amLODIPine BESYLATE 5 MG TABLET (FP) PO SCH (12:21)
--- NOTE | 2017-12-25 13:15 | PN ---
Progress Note, Physician History of Present Illness: doing well looks tired no complaints - Current Medication List Current Medications: Active Medications Acetaminophen (Tylenol -) 650 mg PO Q6H PRN PRN Reason: HEADACHE/PAIN LEVEL 5-10 Last Admin: 12/25/17 01:18 Dose: 650 mg Amlodipine Besylate (Norvasc -) 5 mg PO DAILY [facility] Last Admin: 12/25/17 12:21 Dose: 5 mg Amoxicillin/Clavulanate Potassium (Augmentin - 875mg Tablet) 1 tab PO BID@0800, 1730 [facility] Last Admin: 12/25/17 07:37 Dose: 1 tab Dexamethasone (Decadron -) 4 mg PO TID [facility] Last Admin: 12/25/17 06:32 Dose: 4 mg Docusate Sodium (Colace -) 100 mg PO TID [facility] Last Admin: 12/25/17 06:31 Dose: 100 mg Ferrous Sulfate (Feosol -) 325 mg PO BIDWM [facility] Last Admin: 12/25/17 07:37 Dose: 325 mg Hydrochlorothiazide (Hctz -) 25 mg PO DAILY [facility] Last Admin: 12/25/17 12:14 Dose: 25 mg Insulin Aspart (Novolog Vial Sliding Scale -) 1 vial SQ [facility]; Protocol Last Admin: 12/25/17 12:14 Dose: 8 units Insulin Detemir (Levemir Vial) 45 units SQ ACBK [facility] Last Admin: 12/25/17 06:35 Dose: 45 units Insulin Detemir (Levemir Vial) 35 units SQ HS [facility] Levetiracetam (Keppra -) 500 mg PO BID [facility] Last Admin: 12/25/17 12:14 Dose: 500 mg Levothyroxine Sodium (Synthroid -) 25 mcg PO DAILY@0700 [facility] Last Admin: 12/25/17 06:31 Dose: 25 mcg Losartan Potassium (Cozaar -) 100 mg PO DAILY [facility] Last Admin: 12/25/17 12:14 Dose: 100 mg Metformin HCl (Glucophage -) 500 mg PO BID@0700,1630 [facility] Last Admin: 12/25/17 06:31 Dose: 500 mg Ondansetron HCl (Zofran Injection) 4 mg IVPUSH Q6H PRN PRN Reason: NAUSEA Last Admin: 12/23/17 12:27 Dose: 4 mg - Objective Vital Signs: Vital Signs Temperature 98.7 F 12/25/17 05:03 Pulse Rate 81 12/25/17 05:03 Respiratory Rate 18 12/25/17 05:03 Blood Pressure 148/84 12/25/17 05:03 O2 Sat by Pulse Oximetry (%) 100 12/24/17 20:03 Constitutional: Yes: No Distress, Calm Cardiovascular: Yes: Regular Rate and Rhythm Respiratory: Yes: Regular, CTA Bilaterally Gastrointestinal: Yes: Normal Bowel Sounds, Soft Musculoskeletal: Yes: WNL Extremities: Yes: WNL Neurological: Yes: Alert, Oriented Psychiatric: Yes: Alert, Oriented Labs: CBC, BMP 12/22/17 07:18 12/22/17 07:18 INR, PTT INR 1.04 (0.82-1.09) 12/17/17 10:30 Assessment/Plan Problem List - Problems (1) Breast CA Code(s): C50.919 - MALIGNANT NEOPLASM OF UNSP SITE OF UNSPECIFIED FEMALE BREAST Qualifiers: Breast location: overlapping sites of breast Laterality: right (2) Diabetes Code(s): E11.9 - TYPE 2 DIABETES MELLITUS WITHOUT COMPLICATIONS Qualifiers: Diabetes mellitus type: type 2 Diabetes mellitus complication status: without complication (3) Hyperglycemia Code(s): R73.9 - HYPERGLYCEMIA, UNSPECIFIED (4) Hypothyroidism Code(s): E03.9 - HYPOTHYROIDISM, UNSPECIFIED (5) Intracranial mass Code(s): R90.0 - INTCRN SPACE-OCCUPYING LESION FOUND ON DX IMAGING OF CNSL (6) UTI (urinary tract infection) Code(s): N39.0 - URINARY TRACT INFECTION, SITE NOT SPECIFIED Assessment/Plan 57 year old female with PMH of breast cancer with metastasis to the brain with treatment with sterotactic RT s/p right parietal craniotomy for brain tumor. Pt also with diabetes mellitus, hypothyroidism, vasogenic cerebral edema, hypertension and history of UTIs. Admitted with headache, hyperglycemia, LE pain Metastatic brain cancer UTI DM Lower extremity pain Hypothyroidism Hypertension plan continue and finish the abx as planned rest as per the team
--- NOTE | 2017-12-25 19:09 | PN ---
Progress Note, Physician History of Present Illness: No new changes - Current Medication List Current Medications: Active Medications Acetaminophen (Tylenol -) 650 mg PO Q6H PRN PRN Reason: HEADACHE/PAIN LEVEL 5-10 Last Admin: 12/25/17 01:18 Dose: 650 mg Amlodipine Besylate (Norvasc -) 5 mg PO DAILY [facility] Last Admin: 12/25/17 12:21 Dose: 5 mg Amoxicillin/Clavulanate Potassium (Augmentin - 875mg Tablet) 1 tab PO BID@0800, 1730 [facility] Last Admin: 12/25/17 16:41 Dose: 1 tab Dexamethasone (Decadron -) 4 mg PO TID [facility] Last Admin: 12/25/17 14:19 Dose: 4 mg Docusate Sodium (Colace -) 100 mg PO TID [facility] Last Admin: 12/25/17 14:19 Dose: 100 mg Ferrous Sulfate (Feosol -) 325 mg PO BIDWM [facility] Last Admin: 12/25/17 16:41 Dose: 325 mg Hydrochlorothiazide (Hctz -) 25 mg PO DAILY [facility] Last Admin: 12/25/17 12:14 Dose: 25 mg Insulin Aspart (Novolog Vial Sliding Scale -) 1 vial SQ [facility]; Protocol Last Admin: 12/25/17 17:06 Dose: 8 units Insulin Detemir (Levemir Vial) 45 units SQ ACBK [facility] Last Admin: 12/25/17 06:35 Dose: 45 units Insulin Detemir (Levemir Vial) 35 units SQ HS [facility] Levetiracetam (Keppra -) 500 mg PO BID [facility] Last Admin: 12/25/17 12:14 Dose: 500 mg Levothyroxine Sodium (Synthroid -) 25 mcg PO DAILY@0700 [facility] Last Admin: 12/25/17 06:31 Dose: 25 mcg Losartan Potassium (Cozaar -) 100 mg PO DAILY [facility] Last Admin: 12/25/17 12:14 Dose: 100 mg Metformin HCl (Glucophage -) 500 mg PO BID@0700,1630 [facility] Last Admin: 12/25/17 16:41 Dose: 500 mg Ondansetron HCl (Zofran Injection) 4 mg IVPUSH Q6H PRN PRN Reason: NAUSEA Last Admin: 12/23/17 12:27 Dose: 4 mg - Objective Vital Signs: Vital Signs Temperature 99.6 F 08/06/18 14:34 Pulse Rate 82 12/25/17 14:34 Respiratory Rate 18 12/25/17 14:34 Blood Pressure 126/87 12/25/17 14:34 O2 Sat by Pulse Oximetry (%) 100 12/24/17 20:03 Neck: Yes: WNL, Supple Cardiovascular: Yes: WNL, Regular Rate and Rhythm Respiratory: Yes: WNL, Regular, CTA Bilaterally Gastrointestinal: Yes: WNL, Normal Bowel Sounds, Soft Edema: LLE: 1+, RLE: 1+ Labs: CBC, BMP 12/22/17 07:18 12/22/17 07:18 INR, PTT INR 1.04 (0.82-1.09) 12/17/17 10:30 Problem List - Problems (1) Sepsis Assessment/Plan: Urine culture (+) for Klebsiella Cont PO Augmentin Long d/w pt and her family( and daughter) and they have all agreed to placement in SNF DC planning for am to SNF Code(s): A41.9 - SEPSIS, UNSPECIFIED ORGANISM Qualifiers: Sepsis type: sepsis due to unspecified organism Qualified Code(s): A41.9 - Sepsis, unspecified organism (2) Anemia Assessment/Plan: Due to chronic dz(cancer) Cont Feosol Code(s): D64.9 - ANEMIA, UNSPECIFIED Qualifiers: Anemia type: unspecified type Qualified Code(s): D64.9 - Anemia, unspecified (3) Breast CA Assessment/Plan: Mets to the brain Cont decadron/keppra No further RT As per onco Code(s): C50.919 - MALIGNANT NEOPLASM OF UNSP SITE OF UNSPECIFIED FEMALE BREAST Qualifiers: Breast location: overlapping sites of breast Laterality: right (4) Cerebral edema Assessment/Plan: Slight improvement on ct scan Cont decadron/keppra Code(s): G93.6 - CEREBRAL EDEMA (5) Diabetes Assessment/Plan: Uncontrolled hyperglycemia also due to steroid use Cont Levemir Cont metformin Cont sliding scale w/ coverage Endo consult noted Code(s): E11.9 - TYPE 2 DIABETES MELLITUS WITHOUT COMPLICATIONS Qualifiers: Diabetes mellitus type: type 2 Diabetes mellitus complication status: without complication (6) Generalized weakness Assessment/Plan: PT eval Will need placement for rehab Code(s): R53.1 - WEAKNESS (7) Hypertension Assessment/Plan: BP stable Cont norvasc/losartan/hctz Code(s): I10 - ESSENTIAL (PRIMARY) HYPERTENSION (8) Hypothyroidism Assessment/Plan: Cont levothyroxine TSH within normal range Code(s): E03.9 - HYPOTHYROIDISM, UNSPECIFIED
[2017-12-26] MEDS: LEVOTHYROXINE NA 25 MCG TABLET (FP) PO SCH (06:42)
[2017-12-26] MEDS: DEXAMETHASONE 4 MG TABLET (FP) PO SCH ×3 (06:42→22:24)
[2017-12-26] MEDS: metFORMIN HCL 500 MG TABLET (FP) PO SCH ×2 (06:42→17:06)
[2017-12-26] MEDS: INSULIN (LEVEMIR) 100 UNITS/ML UNITS SQ SCH ×2 (06:43→22:25)
[2017-12-26] MEDS: INSULIN SLIDING SCALE (NOVOLOG) 1 VIAL SQ SCH ×4 (06:44→22:25)
[2017-12-26] MEDS: DOCUSATE SODIUM 100 MG CAPSULE (FP) PO SCH ×3 (06:49→22:24)
[2017-12-26] MEDS: AMOX TR/POT CLAV 875MG/125MG TABLETS (FP) PO SCH ×2 (08:51→17:06)
[2017-12-26] MEDS: FERROUS SO4 325 MG TABLET (FP) PO SCH ×2 (08:52→17:19)
[2017-12-26] MEDS: levETIRAcetam 500 MG TABLET (FP) PO SCH ×2 (09:51→22:24)
[2017-12-26] MEDS: amLODIPine BESYLATE 5 MG TABLET (FP) PO SCH (09:51)
[2017-12-26] MEDS: LOSARTAN POTASSIUM 50 MG TABLET (FP) PO SCH (09:52)
[2017-12-26] MEDS: HYDROCHLOROTHIAZIDE 25 MG TABLET (FP) PO SCH (09:52)
--- NOTE | 2017-12-26 10:14 | PN ---
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[employer] mets/ cerebral edema hypertension uti sepsis Laboratory Results - last 24 hr 12/25/17 12/25/17 12/25/17 12:10 16:59 22:07 POC Glucometer 256 247 333 12/26/17 05:58 POC Glucometer 234 Laboratory Tests 12/22/17 12/22/17 12/25/17 07:18 07:18 00:36 Sodium 143 Potassium 3.6 Chloride 105 Carbon Dioxide 30 Anion Gap 8 BUN 13 Creatinine 0.5 L Creat Clearance w eGFR > 60 POC Glucometer 250 Random Glucose 167 H Hemoglobin A1c % 13.4 H 12/25/17 12/25/17 12/25/17 05:32 12:10 16:59 Sodium Potassium Chloride Carbon Dioxide Anion Gap BUN Creatinine Creat Clearance w eGFR POC Glucometer 184 256 247 Random Glucose Hemoglobin A1c % 12/25/17 12/26/17 22:07 05:58 Sodium Potassium Chloride Carbon Dioxide Anion Gap BUN Creatinine Creat Clearance w eGFR POC Glucometer 333 234 Random Glucose Hemoglobin A1c % plan: levemir dose titrate as need high with resistance Current Medications Generic Name Dose Route Start Last Admin Trade Name Angela PRN Reason Stop Dose Admin Acetaminophen 650 mg 12/21/17 03:10 12/25/17 22:14 Tylenol - PO 650 mg Q6H PRN Administration HEADACHE/PAIN LEVEL 5-10 Amlodipine Besylate 5 mg 12/18/17 10:00 12/26/17 09:51 Norvasc - PO 5 mg DAILY JD Administration Amoxicillin/Clavulanate Potassium 1 tab 12/22/17 17:30 12/26/17 08:51 Augmentin - 875mg Tablet PO 1 tab BID@0800,1730 JD Administration Dexamethasone 4 mg 12/17/17 22:00 12/26/17 06:42 Decadron - PO 4 mg TID JD Administration Docusate Sodium 100 mg 12/17/17 22:00 12/26/17 06:49 Colace - PO 100 mg TID JD Administration Ferrous Sulfate 325 mg 12/18/17 08:00 12/26/17 08:52 Feosol - PO 325 mg BIDWM JD Administration Hydrochlorothiazide 25 mg 12/18/17 10:00 12/26/17 09:52 Hctz - PO 25 mg DAILY JD Administration Insulin Aspart 1 vial 12/24/17 22:08 12/26/17 06:44 Novolog Vial Sliding Scale - SQ 7 units ACHS JD Administration Protocol Insulin Detemir 35 units 12/25/17 22:00 12/25/17 22:12 Levemir Vial SQ 35 units HS JD Administration Insulin Detemir 50 units 12/26/17 09:59 Levemir Vial SQ ACBK JD Levetiracetam 500 mg 12/17/17 22:00 12/26/17 09:51 Keppra - PO 500 mg BID JD Administration Levothyroxine Sodium 25 mcg 12/18/17 07:00 12/26/17 06:42 Synthroid - PO 25 mcg DAILY@0700 JD Administration Losartan Potassium 100 mg 12/18/17 10:07 12/26/17 09:52 Cozaar - PO 100 mg DAILY JD Administration Metformin HCl 500 mg 12/24/17 07:00 12/26/17 06:42 Glucophage - PO 500 mg BID@0700,1630 JD Administration Ondansetron HCl 4 mg 12/23/17 11:57 12/23/17 12:27 Zofran Injection IVPUSH 4 mg Q6H PRN Administration NAUSEA Problem List - Problems (1) Diabetes mellitus type 2 with hyperosmolarity, uncontrolled Code(s): E11.00 - TYPE 2 DIAB W HYPROSM W/O NONKET HYPRGLY-HYPROS COMA (N[facility]); E11.65 - TYPE 2 DIABETES MELLITUS WITH HYPERGLYCEMIA (2) Sepsis Code(s): A41.9 - SEPSIS, UNSPECIFIED ORGANISM Qualifiers: Sepsis type: sepsis due to unspecified organism Qualified Code(s): A41.9 - Sepsis, unspecified organism (3) Bacteremia Code(s): R78.81 - BACTEREMIA (4) Breast CA Code(s): C50.919 - MALIGNANT NEOPLASM OF UNSP SITE OF UNSPECIFIED FEMALE BREAST Qualifiers: Breast location: overlapping sites of breast Laterality: right (5) Chest pain, atypical Code(s): R07.89 - OTHER CHEST PAIN (6) Constipation Code(s): K59.00 - CONSTIPATION, UNSPECIFIED Qualifiers: Constipation type: slow transit constipation Qualified Code(s): K59.01 - Slow transit constipation
[2017-12-26] MEDS ORDERED: INSULIN (NOVOLOG) ASPART 100 UNITS/ML 10ML VIAL ONE ×2 (13:12→22:08)
[2017-12-26] MEDS: ACETAMINOPHEN 325 MG TABLET (FP) PO PRN (13:48)
--- NOTE | 2017-12-26 14:25 | PN ---
Progress Note, Physician History of Present Illness: continues to be stable no complaints except weakness - Current Medication List Current Medications: Active Medications Acetaminophen (Tylenol -) 650 mg PO Q6H PRN PRN Reason: HEADACHE/PAIN LEVEL 5-10 Last Admin: 12/26/17 13:48 Dose: 650 mg Amlodipine Besylate (Norvasc -) 5 mg PO DAILY [facility] Last Admin: 12/26/17 09:51 Dose: 5 mg Amoxicillin/Clavulanate Potassium (Augmentin - 875mg Tablet) 1 tab PO BID@0800, 1730 [facility] Last Admin: 12/26/17 08:51 Dose: 1 tab Dexamethasone (Decadron -) 4 mg PO TID [facility] Last Admin: 12/26/17 13:18 Dose: 4 mg Docusate Sodium (Colace -) 100 mg PO TID [facility] Last Admin: 12/26/17 13:14 Dose: 100 mg Ferrous Sulfate (Feosol -) 325 mg PO BIDWM [facility] Last Admin: 12/26/17 08:52 Dose: 325 mg Hydrochlorothiazide (Hctz -) 25 mg PO DAILY [facility] Last Admin: 12/26/17 09:52 Dose: 25 mg Insulin Aspart (Novolog Vial Sliding Scale -) 1 vial SQ [facility]; Protocol Last Admin: 12/26/17 13:13 Dose: 9 units Insulin Detemir (Levemir Vial) 35 units SQ HS [facility] Last Admin: 12/25/17 22:12 Dose: 35 units Insulin Detemir (Levemir Vial) 50 units SQ ACBK [facility] Levetiracetam (Keppra -) 500 mg PO BID [facility] Last Admin: 12/26/17 09:51 Dose: 500 mg Levothyroxine Sodium (Synthroid -) 25 mcg PO DAILY@0700 [facility] Last Admin: 12/26/17 06:42 Dose: 25 mcg Losartan Potassium (Cozaar -) 100 mg PO DAILY [facility] Last Admin: 12/26/17 09:52 Dose: 100 mg Metformin HCl (Glucophage -) 500 mg PO BID@0700,1630 [facility] Last Admin: 12/26/17 06:42 Dose: 500 mg Ondansetron HCl (Zofran Injection) 4 mg IVPUSH Q6H PRN PRN Reason: NAUSEA Last Admin: 12/23/17 12:27 Dose: 4 mg - Objective Vital Signs: Vital Signs Temperature 98.9 F 12/26/17 09:00 Pulse Rate 75 12/26/17 09:00 Respiratory Rate 20 12/26/17 09:00 Blood Pressure 143/86 12/26/17 09:00 O2 Sat by Pulse Oximetry (%) 97 12/26/17 09:00 Constitutional: Yes: No Distress, Calm Cardiovascular: Yes: Regular Rate and Rhythm Respiratory: Yes: Regular, On Nasal O2 Gastrointestinal: Yes: Normal Bowel Sounds, Soft Musculoskeletal: Yes: WNL Extremities: Yes: WNL Neurological: Yes: Alert, Oriented Psychiatric: Yes: Alert, Oriented Labs: CBC, BMP 12/22/17 07:18 12/22/17 07:18 INR, PTT INR 1.04 (0.82-1.09) 12/17/17 10:30 Assessment/Plan Problem List - Problems (1) Breast CA Code(s): C50.919 - MALIGNANT NEOPLASM OF UNSP SITE OF UNSPECIFIED FEMALE BREAST Qualifiers: Breast location: overlapping sites of breast Laterality: right (2) Diabetes Code(s): E11.9 - TYPE 2 DIABETES MELLITUS WITHOUT COMPLICATIONS Qualifiers: Diabetes mellitus type: type 2 Diabetes mellitus complication status: without complication (3) Hyperglycemia Code(s): R73.9 - HYPERGLYCEMIA, UNSPECIFIED (4) Hypothyroidism Code(s): E03.9 - HYPOTHYROIDISM, UNSPECIFIED (5) Intracranial mass Code(s): R90.0 - INTCRN SPACE-OCCUPYING LESION FOUND ON DX IMAGING OF CNSL (6) UTI (urinary tract infection) Code(s): N39.0 - URINARY TRACT INFECTION, SITE NOT SPECIFIED Assessment/Plan 57 year old female with PMH of breast cancer with metastasis to the brain with treatment with sterotactic RT s/p right parietal craniotomy for brain tumor. Pt also with diabetes mellitus, hypothyroidism, vasogenic cerebral edema, hypertension and history of UTIs. Admitted with headache, hyperglycemia, LE pain Metastatic brain cancer UTI DM Lower extremity pain Hypothyroidism Hypertension plan continue current mgmt complete augmentin course rest continue current mgmt nutrition
[2017-12-26] MEDS: ONDANSETRON 4 MG/2 ML VIAL IVPUSH PRN (18:58)
--- NOTE | 2017-12-26 19:50 | PN ---
Progress Note, Physician - Current Medication List Current Medications: Active Medications Acetaminophen (Tylenol -) 650 mg PO Q6H PRN PRN Reason: HEADACHE/PAIN LEVEL 5-10 Last Admin: 12/26/17 13:48 Dose: 650 mg Amlodipine Besylate (Norvasc -) 5 mg PO DAILY [facility] Last Admin: 12/26/17 09:51 Dose: 5 mg Amoxicillin/Clavulanate Potassium (Augmentin - 875mg Tablet) 1 tab PO BID@0800, 1730 [facility] Last Admin: 12/26/17 17:06 Dose: 1 tab Dexamethasone (Decadron -) 4 mg PO TID [facility] Last Admin: 12/26/17 13:18 Dose: 4 mg Docusate Sodium (Colace -) 100 mg PO TID [facility] Last Admin: 12/26/17 13:14 Dose: 100 mg Ferrous Sulfate (Feosol -) 325 mg PO BIDWM [facility] Last Admin: 12/26/17 17:19 Dose: 325 mg Hydrochlorothiazide (Hctz -) 25 mg PO DAILY [facility] Last Admin: 12/26/17 09:52 Dose: 25 mg Insulin Aspart (Novolog Vial Sliding Scale -) 1 vial SQ [facility]; Protocol Last Admin: 12/26/17 17:06 Dose: 8 units Insulin Detemir (Levemir Vial) 35 units SQ HS [facility] Last Admin: 12/25/17 22:12 Dose: 35 units Insulin Detemir (Levemir Vial) 50 units SQ AC[facility] Levetiracetam (Keppra -) 500 mg PO BID [facility] Last Admin: 12/26/17 09:51 Dose: 500 mg Levothyroxine Sodium (Synthroid -) 25 mcg PO DAILY@0700 [facility] Last Admin: 12/26/17 06:42 Dose: 25 mcg Losartan Potassium (Cozaar -) 100 mg PO DAILY [facility] Last Admin: 12/26/17 09:52 Dose: 100 mg Metformin HCl (Glucophage -) 500 mg PO BID@0700,1630 [facility] Last Admin: 12/26/17 17:06 Dose: 500 mg Ondansetron HCl (Zofran Injection) 4 mg IVPUSH Q6H PRN PRN Reason: NAUSEA Last Admin: 12/26/17 18:58 Dose: 4 mg - Objective Vital Signs: Vital Signs Temperature 98.9 F 12/26/17 18:30 Pulse Rate 70 12/26/17 18:30 Respiratory Rate 18 12/26/17 18:30 Blood Pressure 138/86 12/26/17 18:30 O2 Sat by Pulse Oximetry (%) 97 12/26/17 09:00 Labs: CBC, BMP 12/22/17 07:18 12/22/17 07:18 INR, PTT INR 1.04 (0.82-1.09) 12/17/17 10:30 Problem List - Problems (1) Sepsis Code(s): A41.9 - SEPSIS, UNSPECIFIED ORGANISM Qualifiers: Sepsis type: sepsis due to unspecified organism Qualified Code(s): A41.9 - Sepsis, unspecified organism (2) Anemia Code(s): D64.9 - ANEMIA, UNSPECIFIED Qualifiers: Anemia type: unspecified type Qualified Code(s): D64.9 - Anemia, unspecified (3) Breast CA Code(s): C50.919 - MALIGNANT NEOPLASM OF UNSP SITE OF UNSPECIFIED FEMALE BREAST Qualifiers: Breast location: overlapping sites of breast Laterality: right (4) Cerebral edema Code(s): G93.6 - CEREBRAL EDEMA (5) Diabetes Code(s): E11.9 - TYPE 2 DIABETES MELLITUS WITHOUT COMPLICATIONS Qualifiers: Diabetes mellitus type: type 2 Diabetes mellitus complication status: without complication (6) Generalized weakness Code(s): R53.1 - WEAKNESS (7) Hypertension Code(s): I10 - ESSENTIAL (PRIMARY) HYPERTENSION (8) Hypothyroidism Code(s): E03.9 - HYPOTHYROIDISM, UNSPECIFIED
[2017-12-27] MEDS: metFORMIN HCL 500 MG TABLET (FP) PO SCH ×2 (06:23→16:59)
[2017-12-27] MEDS: DEXAMETHASONE 4 MG TABLET (FP) PO SCH ×3 (06:23→21:11)
[2017-12-27] MEDS: DOCUSATE SODIUM 100 MG CAPSULE (FP) PO SCH ×3 (06:23→21:11)
[2017-12-27] MEDS: INSULIN SLIDING SCALE (NOVOLOG) 1 VIAL SQ SCH ×4 (06:24→21:21)
[2017-12-27] MEDS: LEVOTHYROXINE NA 25 MCG TABLET (FP) PO SCH (06:24)
[2017-12-27] MEDS: INSULIN (LEVEMIR) 100 UNITS/ML UNITS SQ SCH ×2 (06:25→21:16)
[2017-12-27] MEDS: ONDANSETRON 4 MG/2 ML VIAL IVPUSH PRN ×2 (10:24→20:27)
[2017-12-27] MEDS: levETIRAcetam 500 MG TABLET (FP) PO SCH ×2 (10:30→21:11)
[2017-12-27] MEDS: HYDROCHLOROTHIAZIDE 25 MG TABLET (FP) PO SCH (10:30)
[2017-12-27] MEDS: LOSARTAN POTASSIUM 50 MG TABLET (FP) PO SCH (10:31)
[2017-12-27] MEDS: FERROUS SO4 325 MG TABLET (FP) PO SCH ×2 (10:31→16:59)
[2017-12-27] MEDS: amLODIPine BESYLATE 5 MG TABLET (FP) PO SCH (10:31)
[2017-12-27] MEDS: AMOX TR/POT CLAV 875MG/125MG TABLETS (FP) PO SCH (10:31)
[2017-12-27] MEDS ORDERED: INSULIN (NOVOLOG) ASPART 100 UNITS/ML 10ML VIAL ONE (11:38)
--- NOTE | 2017-12-27 13:59 | PN ---
Progress Note, Physician History of Present Illness: events noted from yesterday patient had vomiting episode no stable still very weak - Current Medication List Current Medications: Active Medications Acetaminophen (Tylenol -) 650 mg PO Q6H PRN PRN Reason: HEADACHE/PAIN LEVEL 5-10 Last Admin: 12/26/17 13:48 Dose: 650 mg Amlodipine Besylate (Norvasc -) 5 mg PO DAILY [facility] Last Admin: 12/27/17 10:31 Dose: 5 mg Amoxicillin/Clavulanate Potassium (Augmentin - 875mg Tablet) 1 tab PO BID@0800, 1730 [facility] Last Admin: 12/27/17 10:31 Dose: 1 tab Dexamethasone (Decadron -) 4 mg PO TID [facility] Last Admin: 12/27/17 06:23 Dose: 4 mg Docusate Sodium (Colace -) 100 mg PO TID [facility] Last Admin: 12/27/17 06:23 Dose: 100 mg Ferrous Sulfate (Feosol -) 325 mg PO BIDWM [facility] Last Admin: 12/27/17 10:31 Dose: 325 mg Hydrochlorothiazide (Hctz -) 25 mg PO DAILY [facility] Last Admin: 12/27/17 10:30 Dose: 25 mg Insulin Aspart (Novolog Vial Sliding Scale -) 1 vial SQ [facility]; Protocol Last Admin: 12/27/17 11:42 Dose: 7 units Insulin Detemir (Levemir Vial) 35 units SQ HS [facility] Last Admin: 12/26/17 22:25 Dose: 35 units Insulin Detemir (Levemir Vial) 50 units SQ ACBK [facility] Last Admin: 12/27/17 06:25 Dose: 50 units Levetiracetam (Keppra -) 500 mg PO BID [facility] Last Admin: 12/27/17 10:30 Dose: 500 mg Levothyroxine Sodium (Synthroid -) 25 mcg PO DAILY@0700 [facility] Last Admin: 12/27/17 06:24 Dose: 25 mcg Losartan Potassium (Cozaar -) 100 mg PO DAILY [facility] Last Admin: 12/27/17 10:31 Dose: 100 mg Metformin HCl (Glucophage -) 500 mg PO BID@0700,1630 [facility] Last Admin: 12/27/17 06:23 Dose: 500 mg Ondansetron HCl (Zofran Injection) 4 mg IVPUSH Q6H PRN PRN Reason: NAUSEA Last Admin: 12/27/17 10:24 Dose: 4 mg - Objective Vital Signs: Vital Signs Temperature 98.2 F 12/27/17 06:00 Pulse Rate 68 12/27/17 06:00 Respiratory Rate 18 12/27/17 06:00 Blood Pressure 118/84 12/27/17 06:00 O2 Sat by Pulse Oximetry (%) 97 12/26/17 21:00 Constitutional: Yes: No Distress Cardiovascular: Yes: Regular Rate and Rhythm Respiratory: Yes: Regular, CTA Bilaterally, On Nasal O2 Musculoskeletal: Yes: WNL Extremities: Yes: WNL Neurological: Yes: Alert, Oriented Psychiatric: Yes: Alert, Oriented Labs: CBC, BMP 12/22/17 07:18 12/22/17 07:18 INR, PTT INR 1.04 (0.82-1.09) 12/17/17 10:30 Assessment/Plan Problem List - Problems (1) Breast CA Code(s): C50.919 - MALIGNANT NEOPLASM OF UNSP SITE OF UNSPECIFIED FEMALE BREAST Qualifiers: Breast location: overlapping sites of breast Laterality: right (2) Diabetes Code(s): E11.9 - TYPE 2 DIABETES MELLITUS WITHOUT COMPLICATIONS Qualifiers: Diabetes mellitus type: type 2 Diabetes mellitus complication status: without complication (3) Hyperglycemia Code(s): R73.9 - HYPERGLYCEMIA, UNSPECIFIED (4) Hypothyroidism Code(s): E03.9 - HYPOTHYROIDISM, UNSPECIFIED (5) Intracranial mass Code(s): R90.0 - INTCRN SPACE-OCCUPYING LESION FOUND ON DX IMAGING OF CNSL (6) UTI (urinary tract infection) Code(s): N39.0 - URINARY TRACT INFECTION, SITE NOT SPECIFIED Assessment/Plan 57 year old female with PMH of breast cancer with metastasis to the brain with treatment with sterotactic RT s/p right parietal craniotomy for brain tumor. Pt also with diabetes mellitus, hypothyroidism, vasogenic cerebral edema, hypertension and history of UTIs. Admitted with headache, hyperglycemia, LE pain Metastatic brain cancer UTI DM Lower extremity pain Hypothyroidism Hypertension plan will stop augmentin rest continue current mgmt
--- NOTE | 2017-12-27 22:06 | PN ---
Progress Note, Physician - Current Medication List Current Medications: Active Medications Acetaminophen (Tylenol -) 650 mg PO Q6H PRN PRN Reason: HEADACHE/PAIN LEVEL 5-10 Last Admin: 12/26/17 13:48 Dose: 650 mg Amlodipine Besylate (Norvasc -) 5 mg PO DAILY [facility] Last Admin: 12/27/17 10:31 Dose: 5 mg Dexamethasone (Decadron -) 4 mg PO TID [facility] Last Admin: 12/27/17 21:11 Dose: 4 mg Docusate Sodium (Colace -) 100 mg PO TID [facility] Last Admin: 12/27/17 21:11 Dose: 100 mg Ferrous Sulfate (Feosol -) 325 mg PO BIDWM [facility] Last Admin: 12/27/17 16:59 Dose: 325 mg Hydrochlorothiazide (Hctz -) 25 mg PO DAILY [facility] Last Admin: 12/27/17 10:30 Dose: 25 mg Insulin Aspart (Novolog Vial Sliding Scale -) 1 vial SQ [facility]; Protocol Last Admin: 12/27/17 21:21 Dose: 9 units Insulin Detemir (Levemir Vial) 35 units SQ HS [facility] Last Admin: 12/27/17 21:16 Dose: 35 units Insulin Detemir (Levemir Vial) 50 units SQ ACBK [facility] Last Admin: 12/27/17 06:25 Dose: 50 units Levetiracetam (Keppra -) 500 mg PO BID [facility] Last Admin: 12/27/17 21:11 Dose: 500 mg Levothyroxine Sodium (Synthroid -) 25 mcg PO DAILY@0700 [facility] Last Admin: 12/27/17 06:24 Dose: 25 mcg Losartan Potassium (Cozaar -) 100 mg PO DAILY [facility] Last Admin: 12/27/17 10:31 Dose: 100 mg Metformin HCl (Glucophage -) 500 mg PO BID@0700,1630 [facility] Last Admin: 12/27/17 16:59 Dose: 500 mg Ondansetron HCl (Zofran Injection) 4 mg IVPUSH Q6H PRN PRN Reason: NAUSEA Last Admin: 12/27/17 20:27 Dose: 4 mg - Objective Vital Signs: Vital Signs Temperature 98.3 F 12/27/17 14:20 Pulse Rate 89 12/27/17 14:20 Respiratory Rate 18 12/27/17 14:20 Blood Pressure 127/76 12/27/17 14:20 O2 Sat by Pulse Oximetry (%) 97 12/26/17 21:00 Labs: CBC, BMP 12/22/17 07:18 12/22/17 07:18 INR, PTT INR 1.04 (0.82-1.09) 12/17/17 10:30 Problem List - Problems (1) Sepsis Code(s): A41.9 - SEPSIS, UNSPECIFIED ORGANISM Qualifiers: Sepsis type: sepsis due to unspecified organism Qualified Code(s): A41.9 - Sepsis, unspecified organism (2) Anemia Code(s): D64.9 - ANEMIA, UNSPECIFIED Qualifiers: Anemia type: unspecified type Qualified Code(s): D64.9 - Anemia, unspecified (3) Breast CA Code(s): C50.919 - MALIGNANT NEOPLASM OF UNSP SITE OF UNSPECIFIED FEMALE BREAST Qualifiers: Breast location: overlapping sites of breast Laterality: right (4) Cerebral edema Code(s): G93.6 - CEREBRAL EDEMA (5) Diabetes Code(s): E11.9 - TYPE 2 DIABETES MELLITUS WITHOUT COMPLICATIONS Qualifiers: Diabetes mellitus type: type 2 Diabetes mellitus complication status: without complication (6) Generalized weakness Code(s): R53.1 - WEAKNESS (7) Hypertension Code(s): I10 - ESSENTIAL (PRIMARY) HYPERTENSION (8) Hypothyroidism Code(s): E03.9 - HYPOTHYROIDISM, UNSPECIFIED
--- NOTE | 2017-12-28 00:31 | PN ---
Progress Note (short form) - Note Progress Note: limited mobility sugars elevated likely steroid sensitive Current Active Problems Diabetes mellitus type 2 with hyperosmolarity, uncontrolled (Acute) Sepsis (Acute) Laboratory Results - last 24 hr 12/27/17 12/27/17 12/27/17 06:22 11:37 16:54 POC Glucometer 130 243 197 12/27/17 21:15 POC Glucometer 322 Current Medications Generic Name Dose Route Start Last Admin Trade Name Freq PRN Reason Stop Dose Admin Acetaminophen 650 mg 12/21/17 03:10 12/26/17 13:48 Tylenol - PO 650 mg Q6H PRN Administration HEADACHE/PAIN LEVEL 5-10 Amlodipine Besylate 5 mg 12/18/17 10:00 12/27/17 10:31 Norvasc - PO 5 mg DAILY JD Administration Dexamethasone 4 mg 12/17/17 22:00 12/27/17 21:11 Decadron - PO 4 mg TID JD Administration Docusate Sodium 100 mg 12/17/17 22:00 12/27/17 21:11 Colace - PO 100 mg TID JD Administration Ferrous Sulfate 325 mg 12/18/17 08:00 12/27/17 16:59 Feosol - PO 325 mg BIDWM JD Administration Hydrochlorothiazide 25 mg 12/18/17 10:00 12/27/17 10:30 Hctz - PO 25 mg DAILY JD Administration Insulin Aspart 1 vial 12/24/17 22:08 12/27/17 21:21 Novolog Vial Sliding Scale - SQ 9 units ACHS JD Administration Protocol Insulin Detemir 35 units 12/25/17 22:00 12/27/17 21:16 Levemir Vial SQ 35 units HS JD Administration Insulin Detemir 50 units 12/26/17 09:59 12/27/17 06:25 Levemir Vial SQ 50 units ACBK JD Administration Levetiracetam 500 mg 12/17/17 22:00 12/27/17 21:11 Keppra - PO 500 mg BID JD Administration Levothyroxine Sodium 25 mcg 12/18/17 07:00 12/27/17 06:24 Synthroid - PO 25 mcg DAILY@0700 JD Administration Losartan Potassium 100 mg 12/18/17 10:07 12/27/17 10:31 Cozaar - PO 100 mg DAILY JD Administration Metformin HCl 500 mg 12/24/17 07:00 12/27/17 16:59 Glucophage - PO 500 mg BID@0700,1630 JD Administration Ondansetron HCl 4 mg 12/23/17 11:57 12/27/17 20:27 Zofran Injection IVPUSH 4 mg Q6H PRN Administration NAUSEA Problem List - Problems (1) Diabetes mellitus type 2 with hyperosmolarity, uncontrolled Code(s): E11.00 - TYPE 2 DIAB W HYPROSM W/O NONKET HYPRGLY-HYPROS COMA ([facility]); E11.65 - TYPE 2 DIABETES MELLITUS WITH HYPERGLYCEMIA (2) Sepsis Code(s): A41.9 - SEPSIS, UNSPECIFIED ORGANISM Qualifiers: Sepsis type: sepsis due to unspecified organism Qualified Code(s): A41.9 - Sepsis, unspecified organism (3) Bacteremia Code(s): R78.81 - BACTEREMIA (4) Breast CA Code(s): C50.919 - MALIGNANT NEOPLASM OF UNSP SITE OF UNSPECIFIED FEMALE BREAST Qualifiers: Breast location: overlapping sites of breast Laterality: right (5) Chest pain, atypical Code(s): R07.89 - OTHER CHEST PAIN (6) Constipation Code(s): K59.00 - CONSTIPATION, UNSPECIFIED Qualifiers: Constipation type: slow transit constipation Qualified Code(s): K59.01 - Slow transit constipation
[2017-12-28] MEDS: LEVOTHYROXINE NA 25 MCG TABLET (FP) PO SCH (06:03)
[2017-12-28] MEDS: DEXAMETHASONE 4 MG TABLET (FP) PO SCH (06:03)
[2017-12-28] MEDS: DOCUSATE SODIUM 100 MG CAPSULE (FP) PO SCH (06:03)
[2017-12-28] MEDS: INSULIN SLIDING SCALE (NOVOLOG) 1 VIAL SQ SCH ×2 (06:38→12:14)
[2017-12-28] MEDS: metFORMIN HCL 500 MG TABLET (FP) PO SCH (06:38)
[2017-12-28] MEDS: INSULIN (LEVEMIR) 100 UNITS/ML UNITS SQ SCH (06:38)
[2017-12-28] MEDS ORDERED: INSULIN (NOVOLOG) ASPART 100 UNITS/ML 10ML VIAL ONE (07:00)
[2017-12-28] MEDS: FERROUS SO4 325 MG TABLET (FP) PO SCH (09:03)
--- NOTE | 2017-12-28 10:42 | DS ---
Physical Examination Vital Signs: Vital Signs Temperature 98.3 F 12/27/17 14:20 Pulse Rate 89 12/27/17 14:20 Respiratory Rate 18 12/27/17 14:20 Blood Pressure 127/76 12/27/17 14:20 O2 Sat by Pulse Oximetry (%) 97 12/27/17 21:00 Neck: Yes: WNL, Supple Cardiovascular: Yes: WNL, Regular Rate and Rhythm Respiratory: Yes: WNL, Regular, CTA Bilaterally Gastrointestinal: Yes: WNL, Normal Bowel Sounds, Soft Labs: CBC, BMP 12/22/17 07:18 12/22/17 07:18 Discharge Summary Reason For Visit: SEPSIS Current Active Problems Diabetes mellitus type 2 with hyperosmolarity, uncontrolled (Acute) Sepsis (Acute) Metastatic breast cancer to the brain Cerebral Vasogenic edema Hypothyroidism Hypertension Hospital Course: Patient is a 57 year old female with a significant past medical history of breast cancer with metastatic disease to the brain with treatment with sterotactic RT, right parietal craniotomy for brain tumor. Her other history includes diabetes mellitus, hypothyroidism, vasogenic cerebral edema, hypertension and UTIs. She is brought into the ED today for headaches, left hip discomfort and right leg pain. No trauma or injury reported. Patient states that she has a headache that is persistent and slightly worse today. As per ED signout, patient family is concerned over patient's care needs are not met in the home. Patient noted to have redness and mild excoriated skin on her groin that was thought to be due to inadequate home services. Patient is awake and answering questions appropriately. In the ED she was noted to have a UTI seen on UA. Her urine culture was positive for klebsiella and pt was seen by ID and started on IV antibxs but is now on Augmentin for another 5 days. Condition: Good - Instructions Diet, Activity, Other Instructions: 2 gram sodium and 2200 calorie diabetic diet Referrals: Bakari Pool MD [Primary Care Provider] - [facility]position[facility] - Home Medications Comprehensive Discharge Medication List: Ambulatory Orders Ferrous Sulfate 325 mg PO BID 03/22/16 Omeprazole 40 mg PO DAILY 03/22/16 Capecitabine 1,000 mg PO BID 12/16/16 Lapatinib Ditosylate [Tykerb] 1,250 mg PO DAILY 12/16/16 levETIRAcetam [Keppra -] 500 mg PO BID tablet 12/25/16 Lidocaine 5% Patch [Lidoderm -] 1 patch TP DAILY #7 patch 06/23/17 Losartan/Hydrochlorothiazide [Losartan-Hctz 100-25 mg Tab] 1 each PO DAILY 10/03 Acetaminophen [Tylenol .Regular Strength -] 650 mg PO Q6H PRN #90 tablet Amlodipine Besylate [Norvasc -] 5 mg PO DAILY #30 tablet 10/13/17 Dexamethasone [Decadron -] 4 mg PO TID #60 tablet 10/13/17 Docusate Sodium [Colace -] 100 mg PO TID #90 capsule 10/13/17 Insulin (Levemir) [Levemir Vial] 27 units SQ HS #1 ml 10/13/17 Insulin (Levemir) [Levemir Vial] 35 units SQ AM #1 ml 10/13/17 Insulin Sliding Scale [Novolog Vial Sliding Scale -] 1 vial SQ ACHS units 10/13 Levothyroxine [Synthroid -] 25 mcg PO DAILY@0700 #30 tablet 10/13/17 Amox-Tr/K Cl [Augmentin 875-125mg Tablet -] 1 tab PO BID@0800,1730 #14 tablet Losartan Potassium [Cozaar -] 100 mg PO DAILY tablet 12/26/17 Acetaminophen [Tylenol .Regular Strength -] 650 mg PO Q6H PRN tablet 12/28/17 Hydrochlorothiazide [Hctz -] 25 mg PO DAILY tablet 12/28/17 Insulin (Levemir) [Levemir Vial] 35 units SQ HS units 12/28/17 Insulin (Levemir) [Levemir Vial] 50 units SQ ACBK units 12/28/17 metFORMIN HCL [Glucophage -] 500 mg PO BID@0700,1630 tablet 12/28/17
[2017-12-28] MEDS: amLODIPine BESYLATE 5 MG TABLET (FP) PO SCH (11:01)
[2017-12-28] MEDS: HYDROCHLOROTHIAZIDE 25 MG TABLET (FP) PO SCH (11:01)
[2017-12-28] MEDS: LOSARTAN POTASSIUM 50 MG TABLET (FP) PO SCH (11:02)
[2017-12-28] MEDS: levETIRAcetam 500 MG TABLET (FP) PO SCH (11:03)
--- NOTE | 2017-12-28 13:48 | PN ---
Progress Note, Physician History of Present Illness: still tiredness otherwise no specific issues - Current Medication List Current Medications: Active Medications Acetaminophen (Tylenol -) 650 mg PO Q6H PRN PRN Reason: HEADACHE/PAIN LEVEL 5-10 Last Admin: 12/26/17 13:48 Dose: 650 mg Amlodipine Besylate (Norvasc -) 5 mg PO DAILY [facility] Last Admin: 12/28/17 11:01 Dose: 5 mg Dexamethasone (Decadron -) 4 mg PO TID [facility] Last Admin: 12/28/17 06:03 Dose: 4 mg Docusate Sodium (Colace -) 100 mg PO TID [facility] Last Admin: 12/28/17 06:03 Dose: 100 mg Ferrous Sulfate (Feosol -) 325 mg PO BIDWM [facility] Last Admin: 12/28/17 09:03 Dose: 325 mg Hydrochlorothiazide (Hctz -) 25 mg PO DAILY [facility] Last Admin: 12/28/17 11:01 Dose: 25 mg Insulin Aspart (Novolog Vial Sliding Scale -) 1 vial SQ [facility]; Protocol Last Admin: 12/28/17 12:14 Dose: 7 units Insulin Detemir (Levemir Vial) 35 units SQ HS [facility] Last Admin: 12/27/17 21:16 Dose: 35 units Insulin Detemir (Levemir Vial) 50 units SQ ACBK [facility] Last Admin: 12/28/17 06:38 Dose: 50 units Levetiracetam (Keppra -) 500 mg PO BID [facility] Last Admin: 12/28/17 11:03 Dose: 500 mg Levothyroxine Sodium (Synthroid -) 25 mcg PO DAILY@0700 [facility] Last Admin: 12/28/17 06:03 Dose: 25 mcg Losartan Potassium (Cozaar -) 100 mg PO DAILY [facility] Last Admin: 12/28/17 11:02 Dose: 100 mg Metformin HCl (Glucophage -) 500 mg PO BID@0700,1630 [facility] Last Admin: 12/28/17 06:38 Dose: 500 mg Ondansetron HCl (Zofran Injection) 4 mg IVPUSH Q6H PRN PRN Reason: NAUSEA Last Admin: 12/27/17 20:27 Dose: 4 mg - Objective Vital Signs: Vital Signs Temperature 98.3 F 12/27/17 14:20 Pulse Rate 89 12/27/17 14:20 Respiratory Rate 18 12/27/17 14:20 Blood Pressure 127/76 12/27/17 14:20 O2 Sat by Pulse Oximetry (%) 97 12/27/17 21:00 Constitutional: Yes: No Distress, Calm, Other (weakness) Neck: Yes: Supple Cardiovascular: Yes: Regular Rate and Rhythm Respiratory: Yes: Regular, CTA Bilaterally, On Nasal O2 Gastrointestinal: Yes: Normal Bowel Sounds, Soft Musculoskeletal: Yes: WNL Extremities: Yes: WNL Neurological: Yes: Alert, Oriented Psychiatric: Yes: Alert, Oriented Labs: CBC, BMP 12/22/17 07:18 12/22/17 07:18 INR, PTT INR 1.04 (0.82-1.09) 12/17/17 10:30 Assessment/Plan Problem List - Problems (1) Breast CA Code(s): C50.919 - MALIGNANT NEOPLASM OF UNSP SITE OF UNSPECIFIED FEMALE BREAST Qualifiers: Breast location: overlapping sites of breast Laterality: right (2) Diabetes Code(s): E11.9 - TYPE 2 DIABETES MELLITUS WITHOUT COMPLICATIONS Qualifiers: Diabetes mellitus type: type 2 Diabetes mellitus complication status: without complication (3) Hyperglycemia Code(s): R73.9 - HYPERGLYCEMIA, UNSPECIFIED (4) Hypothyroidism Code(s): E03.9 - HYPOTHYROIDISM, UNSPECIFIED (5) Intracranial mass Code(s): R90.0 - INTCRN SPACE-OCCUPYING LESION FOUND ON DX IMAGING OF CNSL (6) UTI (urinary tract infection) Code(s): N39.0 - URINARY TRACT INFECTION, SITE NOT SPECIFIED Assessment/Plan 57 year old female with PMH of breast cancer with metastasis to the brain with treatment with sterotactic RT s/p right parietal craniotomy for brain tumor. Pt also with diabetes mellitus, hypothyroidism, vasogenic cerebral edema, hypertension and history of UTIs. Admitted with headache, hyperglycemia, LE pain Metastatic brain cancer UTI DM Lower extremity pain Hypothyroidism Hypertension plan continue current mgmt nutrition physio rest as per the team
[2017-12-28 14:25] VITALS: BP 140/91; PULSE 98; TEMP 98.7
--- NOTE | 2017-12-28 16:38 | PN ---
Progress Note (short form) - Note Progress Note: Addendum to discharge summary: Clarification of meds: Pt is not to take Tykerb(she is not presently on this chemotherapy medication) Levemir dosing should be : Levemir 50 units SQ Qam and 35 units SQ Qpm Problem List - Problems (1) Sepsis Code(s): A41.9 - SEPSIS, UNSPECIFIED ORGANISM Qualifiers: Sepsis type: sepsis due to unspecified organism Qualified Code(s): A41.9 - Sepsis, unspecified organism (2) Anemia Code(s): D64.9 - ANEMIA, UNSPECIFIED Qualifiers: Anemia type: unspecified type Qualified Code(s): D64.9 - Anemia, unspecified (3) Breast CA Code(s): C50.919 - MALIGNANT NEOPLASM OF UNSP SITE OF UNSPECIFIED FEMALE BREAST Qualifiers: Breast location: overlapping sites of breast Laterality: right (4) Cerebral edema Code(s): G93.6 - CEREBRAL EDEMA (5) Diabetes Code(s): E11.9 - TYPE 2 DIABETES MELLITUS WITHOUT COMPLICATIONS Qualifiers: Diabetes mellitus type: type 2 Diabetes mellitus complication status: without complication (6) Generalized weakness Code(s): R53.1 - WEAKNESS (7) Hypertension Code(s): I10 - ESSENTIAL (PRIMARY) HYPERTENSION (8) Hypothyroidism Code(s): E03.9 - HYPOTHYROIDISM, UNSPECIFIED
== END 2017-12-28 15:00 | DRG 871 ==
LOC: JER 08:16 → JERBED 15:55 → J6S 22:47
PROVIDERS: ADMIT Family Medicine Geriatric Medicine; ATTEND Internal Medicine
DX: A41.59 Other Gram-negative sepsis (principal); G93.6 Cerebral edema; C79.31 Secondary malignant neoplasm of brain; N39.0 Urinary tract infection, site not specified; I67.89 Other cerebrovascular disease; C79.51 Secondary malignant neoplasm of bone; T66.XXXA Radiation sickness, unspecified, initial encounter; C50.919 Malignant neoplasm of unspecified site of unspecified female breast; E03.9 Hypothyroidism, unspecified; I10 Essential (primary) hypertension; E11.65 Type 2 diabetes mellitus with hyperglycemia; Z79.4 Long term (current) use of insulin; B96.1 Klebsiella pneumoniae [K. pneumoniae] as the cause of diseases classified elsewhere; R53.1 Weakness; E11.40 Type 2 diabetes mellitus with diabetic neuropathy, unspecified; E66.01 Morbid (severe) obesity due to excess calories; Z68.33 Body mass index [BMI] 33.0-33.9, adult
CPT/HCPCS: 36415; 70450-TC; 71045-TC-FY; 80053; 81003; 81015; 82803; 82947; 82962; 83036; 83605; 83735; 84443; 84484; 85025; 85027; 85610; 85730; 87040; 87086; 87186; 93005; 93010; 93925-TC; 97116-GP; 97162-GP; 99285-25; J0131; J7030

== ENCOUNTER 2018-03-06 16:23 | Inpatient (IN) | payer OTHER ==
[2018-03-06] MEDS ORDERED: FAMOTIDINE 20 MG/50 ML IVPB 20 MG/50 ML MG IVPB ONE ×3 (17:04→17:37)
[2018-03-06] MEDS ORDERED: ONDANSETRON 4 MG/2 ML VIAL IVPUSH ONE (17:04)
[2018-03-06] MEDS ORDERED: SODIUM CHLORIDE 1,000 ML IV STA (17:04)
--- NOTE | 2018-03-06 17:04 | PDOC ---
History of Present Illness - General Chief Complaint: Pain, Acute Stated Complaint: VOMITING Time Seen by Provider: 03/06/18 16:40 History Source: Patient Exam Limitations: No Limitations - History of Present Illness Initial Comments: 03/06/18 19:46 Misael Maciel 57 year old female with a significant past medical history of breast cancer with metastatic disease to the brain with treatment with stereotactic RT, right parietal craniotomy for brain tumor/cerebral edema (2014) , diabetes mellitus, hypothyroidism, vasogenic cerebral edema, hypertension and UTIs, presenting from [facility] with generalized AP x 5 days, worsening today a/w nausea and coffee ground emesis x multiple episodes. normal BM today. The patient denies any fevers, chills, cough, or diarrhea. She denies any chest pain or shortness of breath. She denies any dysuria, frequency, urgency, hesitancy, or hematuria. Allergies: Iodinated Contrast - Oral and IV dye, oxycodone HCl. Social History: None reported. Surgical History: Right parietal craniotomy in 2014 for tumor. PCP: Dr. Bakari Pool. Past History - Past Medical History Allergies/Adverse Reactions: Allergies Allergy/AdvReac Type Severity Reaction Status Date / Time Iodinated Contrast- Oral and Allergy Verified 12/17/17 08:41 IV Dye oxycodone HCl [From Percocet] Allergy Verified 12/17/17 08:41 Home Medications: Ambulatory Orders Acetaminophen [Pain Relief] 650 mg PO Q4HWA PRN 03/06/18 Amoxicillin/Potassium Clav [Amox-Clav 875-125 mg Tablet] 1 each PO BID 03/06/18 Dexamethasone [Decadron] 4 mg PO BID 03/06/18 Docusate Sodium [Colace] 300 mg PO DAILY 03/06/18 Furosemide [Lasix] 20 mg PO DAILY 03/06/18 Insulin (LOG) Aspart [NovoLOG -] 0 units SQ TID 03/06/18 Insulin Aspart [Novolog] 0 unit SQ HS 03/06/18 Insulin Detemir [Levemir Flextouch] 60 unit SQ DAILY 03/06/18 Insulin Detemir [Levemir Flextouch] 75 unit SQ DAILY 03/06/18 Levetiracetam 500 mg PO BID 03/06/18 Levothyroxine [Synthroid -] 25 mcg PO DAILY 03/06/18 Lidocaine 5% Patch [Lidoderm Patch -] 1 patch TP DAILY 03/06/18 Losartan Potassium [Cozaar] 100 mg PO DAILY 03/06/18 Metformin HCl [Glucophage] 1,000 mg PO BID 03/06/18 Metoclopramide HCl [Reglan] 5 mg PO TID 03/06/18 Moxifloxacin HCl [Vigamox 0.5% Eye Drops -] 1 drop OU TID 03/06/18 Nystatin Cream [Mycostatin] 1 applic TP BID 03/06/18 Nystatin Powder [Nystop Topical Powder -] 100,000 unit TP BID 03/06/18 Ondansetron [Zofran -] 4 mg PO QID PRN 03/06/18 Pantoprazole Sodium 40 mg PO DAILY 03/06/18 Polyethylene Glycol 3350 [Miralax (For Daily Use) -] 17 gm PO TID 03/06/18 Potassium Chloride [K-Dur -] 20 meq PO DAILY 03/06/18 Anemia: Yes Asthma: No Cancer: Yes (BREAST/BRAIN) Cardiac Disorders: No CVA: No COPD: No CHF: No Dementia: No Diabetes: Yes GI Disorders: No Disorders: No HTN: Yes Hypercholesterolemia: No Liver Disease: No Seizures: Yes Thyroid Disease: No - Surgical History Abdominal Surgery: No Appendectomy: No Cardiac Surgery: No Cholecystectomy: No Lung Surgery: No Neurologic Surgery: Yes (RIGHT PARIETAL CRANIECTOMY 2015 FOR TUMOR) Orthopedic Surgery: No - Immunization History Immunization Up to Date: Yes - Suicide/Smoking/Psychosocial Hx Smoking Status: No Smoking History: Never smoked Have you smoked in the past 12 months: No Number of Cigarettes Smoked Daily: 0 Hx Alcohol Use: No Drug/Substance Use Hx: No Substance Use Type: None Hx Substance Use Treatment: No Review of Systems - Review of Systems Able to Perform ROS?: Yes Comments:: 03/06/18 19:49 GENERAL/CONSTITUTIONAL: No fever or chills. No weakness. no sweats. HEAD, EYES, EARS, NOSE AND THROAT: No change in vision or hearing. no congestion , no difficulty swallowing. CARDIOVASCULAR: No chest pain or palpitations, syncope or edema. RESPIRATORY: No SOB, cough, wheezing, or hemoptysis. GASTROINTESTINAL: (+)Nausea, vomiting, abdominal pain, abdominal distention. No diarrhea or constipation. No bloody stools. GENITOURINARY: No hematuria, dysuria, frequency, urgency or other changes. MUSCULOSKELETAL: No joint or muscle swelling or pain. No neck or back pain. SKIN: No rash or changes in skin color or lesions. NEUROLOGIC: No headache, vertigo, loss of consciousness, or change in strength/ sensation. No gait instability. HEMATOLOGIC/LYMPHATIC: No anemia, easy bruising/bleeding, or history of blood clots. ALLERGIC/IMMUNOLOGIC: No allergies All other systems reviewed and negative, or as documented in HPI. *Physical Exam - Vital Signs Last Vital Signs Temp Pulse Resp BP Pulse Ox 98.6 F 116 H 20 156/90 97 03/06/18 16:43 03/06/18 16:43 03/06/18 16:43 03/06/18 16:43 03/06/18 16:43 - Physical Exam Comments: 03/06/18 19:50 General: (+)Ill-appearing, actively vomiting. In moderate distress. HEENT: NCAT, PERRL, EOMI, clear conjunctiva, anicteric, moist mucus membranes, clear oropharynx, no oral lesions.. +facial edema Neck: neck supple, FROM Resp: CTAB, normal and even respirations, no respiratory distress CVS: (+)Tachycardic. No murmurs, 2+ peripheral pulses throughout, Nonpitting peripheral edema Abdomen: (+)Abdomen distended and diffusely tender. no CVAT Rectal: no carlos blood or melena. no hemorrhoids, empty rectal vault. Back: nontender, normal inspection and ROM MSK: (+)Non-pitting lower extremities. HOLGUIN x4, ROM intact. No clubbing or cyanosis. normal bulk and tone. Neuro: alert, oriented appropriately; no focal neurologic deficits Skin: warm and well perfused, cap refill <2 sec, normal color 03/06/18 19:53 ED Treatment Course - LABORATORY CBC & Chemistry Diagram: 03/06/18 22:32 03/06/18 18:00 Medical Decision Making - Critical Care Time Total Critical Care Time (minutes): 60 (acute GI bleed) Critical Care Statement: The care of this patient involved high complexity decision making to prevent further life threatening deterioration of the patient 's condition and/or to evaluate & treat vital organ system(s) failure or risk of failure. - Medical Decision Making 03/06/18 19:52 Misael Janell 57 year old female with a significant past medical history of breast cancer with metastatic disease to the brain with treatment with stereotactic RT, right parietal craniotomy for brain tumor/cerebral edema (2015) , diabetes mellitus, hypothyroidism, vasogenic cerebral edema, hypertension and UTIs, presenting from [facility] with generalized AP x 5 days, worsening today a/w nausea and coffee ground emesis x multiple episodes. DDx abdominal pain: UGIB vs LGIB, gastric ulcers/duodenal ulcers. GERD, PUD, esophageal spasm, pancreatitis, hepatitis, constipation, colitis, gastroenteritis, cholecystitis, UTI, pyelonephritis, ileus, SBO, medication side effect, hernia, appendicitis, diverticulitis, mesenteric ischemia. vitals with normal hemodynamics, Tachy to 110s. acutely in distress 2/2 vomiting , with copious coffee ground hemetemesis here. Prior notes reviewed, including admissions, discharges and consultations. laboratory results and imaging reviewed, basic labs and lytes notable for acute anemia, with Hb/Hcg drop down to 9.5/30, will repeat and trend, does not reach threshold to transfuse yet, so will monitor. - TxS performed. coags wnl - Protonix 80mg IV for presumed UGIB, protonix gtt and 1L NSS hydration. NGT attempted, initially to suction with carlos hemetemesis. coiled initially on cxr, attempted to readvance, but pt uncooperative and aborted after multiple attempts guaiac negative, rectal exam as documented. suspecting more UGIB EKG sinus tachycardia, no interval abnormalities, narrow QRS, ST and T wave segments and morphology normal. Nonspecific T wave abnormalities GI consult to Dr. Beltran/Jessica, will see in am. CT a/p to eval for source of n/v, possible SBO given malignancy history; however allergy to contrast, so will do limited study for now. no e/o obstruction. metastatic disease noted. Admit to ICU for GIB, NPO and bowel rest. inpatient GI cs.. Discussed results and management plan with pt and family members at bedside/phone, agree with impression and plan. spoke with Dr. Galindo, agreeable to plan 03/07/18 02:15 *DC/Admit/Observation/Transfer Diagnosis at time of Disposition: Hematemesis, GIB (gastrointestinal bleeding) - Discharge Dispostion Condition at time of disposition: Critical Decision to Admit order: Yes Decision to Admit order Date/Time: 03/06/18 19:59 Decision to Admit Order Category Date Time Status Decision to Admit to Hospital Routine Admission 03/06/18 17:44 Active - Referrals - Patient Instructions - Post Discharge Activity
[2018-03-06] MEDS ORDERED: ONDANSETRON 4 MG/2 ML VIAL ONE (17:16)
[2018-03-06] MEDS ORDERED: BENZOCAINE/MENTH/CETYLPYRD CL 1 EACH LOZENGE MM PRN (17:21)
[2018-03-06] MEDS ORDERED: LIDOCAINE VISCOUS 2% ORAL/TOP 20 ML UNIT-DOSE CUP MM ONE (17:23)
[2018-03-06] MEDS ORDERED: LIDOCAINE HCL 2% JELLY (5 ML/TUBE) ONE (17:26)
[2018-03-06] MEDS ORDERED: PANTOPRAZOLE SODIUM 40 MG VIAL IVPUSH ONE (17:31)
[2018-03-06] MEDS ORDERED: PANTOPRAZOLE SODIUM 80 MG/200 ML BAG IVPB ONE (18:21)
[2018-03-06 18:45] LABS: BASO % 0.1 % (0-2.0); HEMATOCRIT 30.9 % (32.4-45.2); HEMOGLOBIN 9.5 GM/dL (10.7-15.3); LYMPH % 8.3 % (8-40); MCH 23.9 pg (25.7-33.7); MCHC 30.7 g/dl (32.0-36.0); MEAN CELL VOLUME 77.9 fl (80-96); MEAN PLT VOLUME 7.9 fl (7.5-11.1); MONO % 4.7 % (3.8-10.2); NEUT % 86.9 % (42.8-82.8); PLATELET COUNT 298 K/MM3 (134-434); RBC 3.96 M/mm3 (3.60-5.2); RDW 17.7 % (11.6-15.6); WHITE BLOOD COUNT 11.2 K/mm3 (4.0-10.0)
[2018-03-06 19:04] LABS: INR 1.01 (0.83-1.09); PROTHROMBIN TIME (PATIENT) 11.9 SEC (9.7-13.0)
[2018-03-06] MEDS: PANTOPRAZOLE SODIUM 80 MG in SODIUM CHLORIDE 100 ML IVPB SCH (19:27)
[2018-03-06 19:39] LABS: ALBUMIN 2.4 g/dl (3.4-5.0); ALK PHOS 122 U/L (45-117); ANION GAP 10 MMOL/L (8-16); BILIRUBIN,TOTAL 0.2 mg/dL (0.2-1); BLOOD UREA NITROGEN 24 mg/dL (7-18); CALCIUM 9.2 mg/dL (8.5-10.1); CHLORIDE 102 mmol/L (98-107); CO2 26 mmol/L (21-32); CREATININE 0.6 mg/dL (0.55-1.3); LIPASE 114 U/L (73-393); POTASSIUM 4.2 mmol/L (3.5-5.1); SGOT/AST 25 U/L (15-37); SGPT/ALT 53 U/L (13-61); SODIUM 138 mmol/L (136-145); TOT PROT 6.2 g/dl (6.4-8.2)
[2018-03-06 19:43] LABS: GLUCOSE,RANDOM 308 mg/dL (74-106)
--- NOTE | 2018-03-06 19:59 | CONSULT ---
Consultation: REQUESTING PROVIDER: CONSULT REQUEST: We have been asked to medically evaluate this patient for ( specify). HISTORY OF PRESENT ILLNESS: This is a 57 yo F with PMH of breast CA with brain mets s/p R parietal craniotomy, on sterotactic RT, vasogenic cerebral edema, IDDM, HTN, hypothyroidism, and UTIs, who presents to ED from [facility] due to headache x5d, nausea that started today at 2 pm and copious coffee ground emesis in the ambulance, found to have dropped Hgb 2 points 11.6->9.5. Hemodynamically stable. Patient at this time denies abd pain, nausea, cp, son, cough, dizziness , melena, hematohezia or h/a. she states that she feels better and wishes to go home to make sure she attends her 3 mo chemo apt tomorrow. Her current condition and necessity for hospitalization and ICU stay was explained to her and she requested her husbands help with decision making. REVIEW OF SYSTEMS: CONSTITUTIONAL: Absent: fever, chills HEENT: Absent: difficulty swallowing, visual changes CARDIOVASCULAR: Absent: chest pain, syncope, palpitations, irregular heart rate, lightheadedness RESPIRATORY: Absent: cough, shortness of breath, orthopnea, hemoptysis GASTROINTESTINAL: Absent: abdominal pain, abdominal distension, nausea, diarrhea, constipation, melena, hematochezia GENITOURINARY: Absent: dysuria, flank pain, MUSCULOSKELETAL: Absent: back pain, neck pain SKIN: Absent: rash, itching, pallor HEMATOLOGIC/IMMUNOLOGIC: Absent: easy bleeding, easy bruising ENDOCRINE: Absent: unexplained weight gain, unexplained weight loss NEUROLOGIC: Absent: dizziness PSYCHIATRIC: Absent: hallucinations. PHYSICAL EXAMINATION Vital Signs - 24 hr 03/06/18 03/06/18 16:43 18:35 Temperature 98.6 F Pulse Rate 116 H Pulse Rate [ 105 H Apical] Respiratory 20 20 Rate Blood Pressure 156/90 Blood Pressure 160/95 [Left Arm] O2 Sat by Pulse 97 96 Oximetry (%) GENERAL: Awake, alert, and fully oriented, in no acute distress. HEAD: Normal with no signs of trauma. EYES: Pupils equal, round and reactive to light, sclera anicteric, conjunctiva clear. No lid lag. EARS, NOSE, THROAT: Moist mucous membranes. NECK: supple LUNGS: Breath sounds equal, clear to auscultation bilaterally HEART: Regular rate and rhythm, normal S1 and S2 ABDOMEN: Soft, nontender, mildl distended, normoactive bowel sounds, no guarding , no rebound, no masses MUSCULOSKELETAL: No CVA tenderness. UPPER EXTREMITIES: 2+ pulses, warm, well-perfused LOWER EXTREMITIES: 2+ pulses, warm, well-perfused. No calf tenderness. trace b/ l pedal edema. NEUROLOGICAL: Cranial nerves II-XII grossly intact. Normal speech. PSYCHIATRIC: Cooperative. Good eye contact. Appropriate mood and affect. SKIN: Warm, dry Laboratory Results - last 24 hr 03/06/18 03/06/18 03/06/18 18:00 18:00 18:00 WBC 11.2 H RBC 3.96 Hgb 9.5 L Hct 30.9 L MCV 77.9 L MCH 23.9 L MCHC 30.7 L RDW 17.7 H Plt Count 298 D MPV 7.9 Absolute Neuts (auto) 9.7 H Neutrophils % 86.9 H D Lymphocytes % 8.3 D Monocytes % 4.7 Eosinophils % 0.0 D Basophils % 0.1 Nucleated RBC % 1 H PT with INR INR PTT (Actin FS) Sodium 138 Potassium 4.2 Chloride 102 Carbon Dioxide 26 Anion Gap 10 BUN 24 H Creatinine 0.6 Creat Clearance w eGFR > 60 Random Glucose 308 H* Lactic Acid 4.5 H* Calcium 9.2 Total Bilirubin 0.2 AST 25 ALT 53 Alkaline Phosphatase 122 H Troponin I < 0.02 Total Protein 6.2 L Albumin 2.4 L Lipase 114 03/06/18 03/06/18 18:00 18:00 WBC RBC Hgb Hct MCV MCH MCHC RDW Plt Count MPV Absolute Neuts (auto) Neutrophils % Lymphocytes % Monocytes % Eosinophils % Basophils % Nucleated RBC % PT with INR 11.90 INR 1.01 PTT (Actin FS) 26.8 Sodium Potassium Chloride Carbon Dioxide Anion Gap BUN Creatinine Creat Clearance w eGFR Random Glucose Lactic Acid Calcium Total Bilirubin AST ALT Alkaline Phosphatase Troponin I Total Protein Albumin Lipase Active Medications Generic Name Dose Route Start Last Admin Trade Name Freq PRN Reason Stop Dose Admin Benzocaine/Menthol 1 each 03/06/18 17:21 Cepacol Lozenge - MM PRN PRN SORE THROAT Pantoprazole Sodium 80 mg/ 100 mls @ 10 mls/hr 03/06/18 18:30 03/06/18 19:27 Sodium Chloride IVPB 10 mls/hr Q10H JD Administration 8 MG/HR ASSESSMENT/PLAN: This is a 57 yo F with PMH of breast CA with brain mets s/p R parietal craniotomy, on sterotactic RT, vasogenic cerebral edema, IDDM, HTN, hypothyroidism, and UTIs, who presents to ED from [facility] due to headache x5d, nausea that started today at 2 pm and copious coffee ground emesis in the ambulance, found to have dropped Hgb 2 points 11.6->9.5. Upper GIB lactic acidosis due to vomiting metastatic breast CA on RT and chemo?, brain mets s/p R partial craniectomy vasogenic cerebral edema IDDM HTN Hypothyroidism -hgb dropped 2 points to 9.5. h/h in 4 hr -stool guaiac negative, likely Upper gi source. f/u abd ct -PPI gtt -LR @ 75 -NPO -Refuses ngt -gi consult -ISS, bgm q4h -continue home decadron in iV form 4 BID, keppra 500 bid -hold lasix and BP meds while bleeding while patient still at risk for massive hemorrhage and hypotension -continue home synthroid in iv form 12.5 d Dispo: We will continue to follow the patient. Thank you for this consultative opportunity. Problem List - Problems (1) GIB (gastrointestinal bleeding) Code(s): K92.2 - GASTROINTESTINAL HEMORRHAGE, UNSPECIFIED (2) Hematemesis Code(s): K92.0 - HEMATEMESIS (3) Anemia Code(s): D64.9 - ANEMIA, UNSPECIFIED Qualifiers: Anemia type: unspecified type Qualified Code(s): D64.9 - Anemia, unspecified (4) Breast CA Code(s): C50.919 - MALIGNANT NEOPLASM OF UNSP SITE OF UNSPECIFIED FEMALE BREAST Qualifiers: Breast location: overlapping sites of breast Laterality: right (5) Diabetes Code(s): E11.9 - TYPE 2 DIABETES MELLITUS WITHOUT COMPLICATIONS Qualifiers: Diabetes mellitus type: type 2 Diabetes mellitus complication status: without complication Visit type - Emergency Visit Emergency Visit: Yes Care time: The patient presented to the Emergency Department on the above date and was hospitalized for further evaluation of their emergent condition. - New Patient This patient is new to me today: Yes Date on this admission: 03/06/18 - Critical Care Critical Care patient: Yes Total Critical Care Time (in minutes): 45 Critical Care Statement: The care of this patient involved high complexity decision making to prevent further life threatening deterioration of the patient 's condition and/or to evaluate & treat vital organ system(s) failure or risk of failure.
[2018-03-06 20:11] LABS: PLATELET ESTIMATE ADEQUATE
[2018-03-06] MEDS ORDERED: ONDANSETRON 4 MG/2 ML VIAL IVPUSH PRN (20:52)
[2018-03-06] MEDS ORDERED: PANTOPRAZOLE SODIUM 40 MG VIAL ONE (21:02)
[2018-03-06] MEDS ORDERED: levETIRAcetam 500 MG/5 ML INJECTION VIAL IVPB ONE (21:52)
[2018-03-06] MEDS: levETIRAcetam 500 MG/5 ML INJECTION VIAL IVPB SCH (22:08)
[2018-03-06] MEDS: LACTATED RINGERS SOLUTION 1,000 ML/1,000 ML INFUS.BAG IV SCH (22:09)
[2018-03-06] MEDS: INSULIN SLIDING SCALE (NOVOLOG) 1 VIAL SQ SCH (22:43)
[2018-03-06] MEDS ORDERED: DEXAMETHASONE SOD PHOSPHATE 4 MG/1 ML VIAL ONE (22:45)
[2018-03-06 22:53] LABS: BASO % 0.3 % (0-2.0); EOS % 0.1 % (0-4.5); HEMATOCRIT 28.4 % (32.4-45.2); HEMOGLOBIN 8.6 GM/dL (10.7-15.3); LYMPH % 11.3 % (8-40); MCH 23.6 pg (25.7-33.7); MCHC 30.4 g/dl (32.0-36.0); MEAN CELL VOLUME 77.5 fl (80-96); MEAN PLT VOLUME 7.4 fl (7.5-11.1); MONO % 5.4 % (3.8-10.2); NEUT % 82.9 % (42.8-82.8); PLATELET COUNT 254 K/MM3 (134-434); RBC 3.66 M/mm3 (3.60-5.2); RDW 17.9 % (11.6-15.6); WHITE BLOOD COUNT 10.5 K/mm3 (4.0-10.0)
[2018-03-06] MEDS: DEXAMETHASONE SOD PHOSPHATE 4 MG/1 ML VIAL IVPUSH SCH (23:17)
[2018-03-07] MEDS: PANTOPRAZOLE SODIUM 80 MG in SODIUM CHLORIDE 100 ML IVPB SCH ×3 (01:30→18:49)
[2018-03-07] MEDS: INSULIN SLIDING SCALE (NOVOLOG) 1 VIAL SQ SCH ×6 (01:45→22:08)
--- NOTE | 2018-03-07 03:06 | HP ---
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 History TIME BROKER: Yes: Other (TIME BROKER mets in 2015- treated with stereotactic RT) Cardiovascular: Yes: HTN Heme/Onc: Yes: Cancer (breast cancer-invasive ductal poorly differenciated with necrosis 12/03) Endocrine: Yes: Diabetes Mellitus - Past Surgical History Past Surgical History: Yes: Breast Biopsy, - Smoking History Smoking history: Never smoked Have you smoked in the past 12 months: No Aproximately how many cigarettes per day: 0 - Alcohol/Substance Use Hx Alcohol Use: No History of Substance Use: reports: None - Social History ADL: Support Services 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 History of Recent Travel: No Home Medications - Allergies Allergies/Adverse Reactions: Allergies Allergy/AdvReac Type Severity Reaction Status Date / Time Iodinated Contrast- Oral and Allergy Verified 12/17/17 08:41 IV Dye oxycodone HCl [From Percocet] Allergy Verified 12/17/17 08:41 - Home Medications Home Medications: Ambulatory Orders Acetaminophen [Pain Relief] 650 mg PO Q4HWA PRN 03/06/18 Amoxicillin/Potassium Clav [Amox-Clav 875-125 mg Tablet] 1 each PO BID 03/06/18 Dexamethasone [Decadron] 4 mg PO BID 03/06/18 Docusate Sodium [Colace] 300 mg PO DAILY 03/06/18 Furosemide [Lasix] 20 mg PO DAILY 03/06/18 Insulin (LOG) Aspart [NovoLOG -] 0 units SQ TID 03/06/18 Insulin Aspart [Novolog] 0 unit SQ HS 03/06/18 Insulin Detemir [Levemir Flextouch] 60 unit SQ DAILY 03/06/18 Insulin Detemir [Levemir Flextouch] 75 unit SQ DAILY 03/06/18 Levetiracetam 500 mg PO BID 03/06/18 Levothyroxine [Synthroid -] 25 mcg PO DAILY 03/06/18 Lidocaine 5% Patch [Lidoderm Patch -] 1 patch TP DAILY 03/06/18 Losartan Potassium [Cozaar] 100 mg PO DAILY 03/06/18 Metformin HCl [Glucophage] 1,000 mg PO BID 03/06/18 Metoclopramide HCl [Reglan] 5 mg PO TID 03/06/18 Moxifloxacin HCl [Vigamox 0.5% Eye Drops -] 1 drop OU TID 03/06/18 Nystatin Cream [Mycostatin] 1 applic TP BID 03/06/18 Nystatin Powder [Nystop Topical Powder -] 100,000 unit TP BID 03/06/18 Ondansetron [Zofran -] 4 mg PO QID PRN 03/06/18 Pantoprazole Sodium 40 mg PO DAILY 03/06/18 Polyethylene Glycol 3350 [Miralax (For Daily Use) -] 17 gm PO TID 03/06/18 Potassium Chloride [K-Dur -] 20 meq PO DAILY 03/06/18 Family Disease History - Family Disease History Family Disease History: Other: Grandparent (asthma), Father ( of unknown cause), Mother (htn), Brother (3B healthy and living), Sister (4S healthy and living) Physical Examination Vital Signs: Vital Signs Temperature 98 F 03/07/18 01:10 Pulse Rate 91 H 03/07/18 02:00 Respiratory Rate 16 03/07/18 02:00 Blood Pressure 143/85 03/07/18 02:00 O2 Sat by Pulse Oximetry (%) 96 03/07/18 01:55 Labs: CBC, BMP 03/06/18 22:32 03/06/18 18:00
[2018-03-07] MEDS ORDERED: LEVOTHYROXINE SODIUM 100 MCG VIAL IVPUSH SCH (07:00)
[2018-03-07 07:42] LABS: ANION GAP 7 MMOL/L (8-16); BLOOD UREA NITROGEN 17 mg/dL (7-18); CALCIUM 8.6 mg/dL (8.5-10.1); CHLORIDE 106 mmol/L (98-107); CO2 29 mmol/L (21-32); CREATININE 0.5 mg/dL (0.55-1.3); GLUCOSE,RANDOM 154 mg/dL (74-106); MAGNESIUM 2.1 mg/dL (1.8-2.4); PHOSPHOROUS 3.5 mg/dL (2.5-4.9); POTASSIUM 4.2 mmol/L (3.5-5.1); SODIUM 142 mmol/L (136-145)
[2018-03-07 07:57] LABS: BASO % 0.2 % (0-2.0); EOS % 0.1 % (0-4.5); HEMATOCRIT 26.7 % (32.4-45.2); HEMOGLOBIN 8.2 GM/dL (10.7-15.3); LYMPH % 9.6 % (8-40); MCH 23.9 pg (25.7-33.7); MCHC 30.8 g/dl (32.0-36.0); MEAN CELL VOLUME 77.5 fl (80-96); MEAN PLT VOLUME 7.7 fl (7.5-11.1); MONO % 4.7 % (3.8-10.2); NEUT % 85.4 % (42.8-82.8); PLATELET COUNT 239 K/MM3 (134-434); RBC 3.44 M/mm3 (3.60-5.2); RDW 17.3 % (11.6-15.6); WHITE BLOOD COUNT 10.3 K/mm3 (4.0-10.0)
[2018-03-07] MEDS ORDERED: PT OWN MED DRAWER 7, Y5N ONE (09:11)
[2018-03-07] MEDS: levETIRAcetam 500 MG/5 ML INJECTION VIAL IVPB SCH (09:14)
[2018-03-07] MEDS: DEXAMETHASONE SOD PHOSPHATE 4 MG/1 ML VIAL IVPUSH SCH (09:14)
[2018-03-07 09:15] LABS: URINE APPEARANCE TURBID; URINE BILIRUBIN NEGATIVE (<2.0 mg/dL); URINE COLOR YELLOW; URINE GLUCOSE (UA) NEGATIVE (NEGATIVE); URINE KETONE NEGATIVE (NEGATIVE); URINE LEUK ESTERASE 3+ (NEGATIVE); URINE NITRITE NEGATIVE (NEGATIVE); URINE PROTEIN 2+ (NEGATIVE); URINE UROBILINOGEN NEGATIVE mg/dL (0.2-1.0)
[2018-03-07 09:19] LABS: URINE MUCUS RARE; YEAST FEW
--- NOTE | 2018-03-07 09:27 | CON.GI ---
Consult Consult Specialty:: Gastroenterology ( covering Dr. Estevez) Referred by:: Dr Galindo Reason for Consultation:: Hematemesis - History of Present Illness Chief Complaint: Vomiting History of Present Illness: 57F with advanced breast cancer is transferred from the [facility] after she developed hematemesis. She denies abdominal pain. No previous h/o GI bleeding and has never had an EGD. She did have a colonoscopy with Dr Shepherd remotely but cannot recall the findings. She had a right parietal craniotomy at [facility] in 2014 for metastases and is s/p stereotactic RT. She is undergoing chemotherapy with Dr. Kiser @ [facility] which has included pulses of steroids. Her FCT reveals liver and bone metastases. - History Source History Provided By: Patient Limitations to Obtaining History: Clinical Condition - Past Medical History [employer] [employer]: Yes: Other ([facility] [employer] mets in 2014- treated with stereotactic RT, parietal craniotomy in 2014) Cardio/Vascular: Yes: HTN Heme/Onc: Yes: Cancer (Right breast cancer with brain mets on chemotheapy with Dr Kiser at [facility]) Endocrine: Yes: Diabetes Mellitus, Hypothyroidism - Past Surgical History Past Surgical History: Yes: Breast Biopsy, Colonoscopy, Craniotomy (right parietal craniotomy 2014 at [facility]), - Alcohol/Substance Use Hx Alcohol Use: No History of Substance Use: reports: None - Smoking History Smoking history: Never smoked Have you smoked in the past 12 months: No Aproximately how many cigarettes per day: 0 - Social History Usual Living Arrangement: With Spouse ADL: Support Services 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, 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 [employer] Place of : Other ([place], [place]) History of Recent Travel: No Home Medications - Allergies Allergies/Adverse Reactions: Allergies Allergy/AdvReac Type Severity Reaction Status Date / Time Iodinated Contrast- Oral and Allergy Verified 12/17/17 08:41 IV Dye oxycodone HCl [From Percocet] Allergy Verified 12/17/17 08:41 - Home Medications Home Medications: Ambulatory Orders Acetaminophen [Pain Relief] 650 mg PO Q4HWA PRN 03/06/18 Amoxicillin/Potassium Clav [Amox-Clav 875-125 mg Tablet] 1 each PO BID 03/06/18 Dexamethasone [Decadron] 4 mg PO BID 03/06/18 Docusate Sodium [Colace] 300 mg PO DAILY 03/06/18 Furosemide [Lasix] 20 mg PO DAILY 03/06/18 Insulin (LOG) Aspart [NovoLOG -] 0 units SQ TID 03/06/18 Insulin Aspart [Novolog] 0 unit SQ HS 03/06/18 Insulin Detemir [Levemir Flextouch] 60 unit SQ DAILY 03/06/18 Insulin Detemir [Levemir Flextouch] 75 unit SQ DAILY 03/06/18 Levetiracetam 500 mg PO BID 03/06/18 Levothyroxine [Synthroid -] 25 mcg PO DAILY 03/06/18 Lidocaine 5% Patch [Lidoderm Patch -] 1 patch TP DAILY 03/06/18 Losartan Potassium [Cozaar] 100 mg PO DAILY 03/06/18 Metformin HCl [Glucophage] 1,000 mg PO BID 03/06/18 Metoclopramide HCl [Reglan] 5 mg PO TID 03/06/18 Moxifloxacin HCl [Vigamox 0.5% Eye Drops -] 1 drop OU TID 03/06/18 Nystatin Cream [Mycostatin] 1 applic TP BID 03/06/18 Nystatin Powder [Nystop Topical Powder -] 100,000 unit TP BID 03/06/18 Ondansetron [Zofran -] 4 mg PO QID PRN 03/06/18 Pantoprazole Sodium 40 mg PO DAILY 03/06/18 Polyethylene Glycol 3350 [Miralax (For Daily Use) -] 17 gm PO TID 03/06/18 Potassium Chloride [K-Dur -] 20 meq PO DAILY 03/06/18 Family Disease History - Family Disease History Family Disease History: Other: Grandparent (asthma), Father ( of unknown cause age 90), Mother (htn), Brother (3B healthy and living), Sister (4S healthy and living) Review of Systems - Review of Systems Eyes: reports: No Symptoms HENT: reports: No Symptoms Neck: reports: No Symptoms Cardiovascular: reports: No Symptoms Respiratory: reports: No Symptoms Gastrointestinal: reports: Vomiting Blood Physical Exam-GI Vital Signs: Vital Signs Temperature 98.1 F 03/07/18 06:00 Pulse Rate 68 03/07/18 09:12 Respiratory Rate 13 03/07/18 09:12 Blood Pressure 161/98 03/07/18 09:12 O2 Sat by Pulse Oximetry (%) 96 10/17/18 01:55 Laboratory Tests 03/06/18 03/06/18 03/06/18 18:00 18:00 18:00 Hgb 9.5 L PT with INR BUN Creatinine Lactic Acid 4.5 H* Total Bilirubin 0.2 Albumin 2.4 L 03/06/18 03/06/18 03/07/18 18:00 22:32 07:00 Hgb 8.2 L PT with INR 11.90 BUN Creatinine Lactic Acid 2.8 H* Total Bilirubin Albumin 03/07/18 07:00 Hgb PT with INR BUN 17 Creatinine 0.5 L Lactic Acid Total Bilirubin Albumin CBC,CMP WBC 10.3 K/mm3 (4.0-10.0) H 03/07/18 07:00 RBC 3.44 M/mm3 (3.60-5.2) L 03/07/18 07:00 Hgb 8.2 GM/dL (10.7-15.3) L 03/07/18 07:00 Hct 26.7 % (32.4-45.2) L 03/07/18 07:00 MCV 77.5 fl (80-96) L 03/07/18 07:00 MCH 23.9 pg (25.7-33.7) L 03/07/18 07:00 MCHC 30.8 g/dl (32.0-36.0) L 03/07/18 07:00 RDW 17.3 % (11.6-15.6) H 03/07/18 07:00 Plt Count 239 K/MM3 (134-434) 03/07/18 07:00 MPV 7.7 fl (7.5-11.1) 03/07/18 07:00 Absolute Neuts (auto) 8.8 K/mm3 (1.5-8.0) H 03/07/18 07:00 Total Counted 100 03/06/18 18:00 Neutrophils % 85.4 % (42.8-82.8) H 03/07/18 07:00 Neutrophils % (Manual) 85.0 % (42.8-82.8) H 03/06/18 18:00 Band Neutrophils % 3.0 % 03/06/18 18:00 Lymphocytes % 9.6 % (8-40) 03/07/18 07:00 Lymphocytes % (Manual) 7.0 % (8-40) L D 10/16/18 18:00 Monocytes % 4.7 % (3.8-10.2) 03/07/18 07:00 Monocytes % (Manual) 5 % (3.8-10.2) 03/06/18 18:00 Eosinophils % 0.1 % (0-4.5) 03/07/18 07:00 Basophils % 0.2 % (0-2.0) 03/07/18 07:00 Nucleated RBC % 1 % (0-0) H 03/07/18 07:00 Platelet Estimate Adequate 03/06/18 18:00 Polychromasia 1+ 03/06/18 18:00 Sodium 142 mmol/L (136-145) 03/07/18 07:00 Potassium 4.2 mmol/L (3.5-5.1) 03/07/18 07:00 Chloride 106 mmol/L (98-107) 03/07/18 07:00 Carbon Dioxide 29 mmol/L (21-32) 03/07/18 07:00 Anion Gap 7 MMOL/L (8-16) L 03/07/18 07:00 BUN 17 mg/dL (7-18) 03/07/18 07:00 Creatinine 0.5 mg/dL (0.55-1.3) L 03/07/18 07:00 Creat Clearance w eGFR > 60 (>60) 03/07/18 07:00 POC Glucometer 145.10075 UNITS (80-120) 03/07/18 09:00 Random Glucose 154 mg/dL (74-106) H 03/07/18 07:00 Lactic Acid 2.8 mmol/L (0.4-2.0) H* 03/06/18 22:32 Calcium 8.6 mg/dL (8.5-10.1) 03/07/18 07:00 Phosphorus 3.5 mg/dL (2.5-4.9) 03/07/18 07:00 Magnesium 2.1 mg/dL (1.8-2.4) 03/07/18 07:00 Total Bilirubin 0.2 mg/dL (0.2-1) 03/06/18 18:00 AST 25 U/L (15-37) 03/06/18 18:00 ALT 53 U/L (13-61) 03/06/18 18:00 Alkaline Phosphatase 122 U/L (45-117) H 03/06/18 18:00 Troponin I < 0.02 ng/ml (0.00-0.05) 03/06/18 18:00 Total Protein 6.2 g/dl (6.4-8.2) L 03/06/18 18:00 Albumin 2.4 g/dl (3.4-5.0) L 03/06/18 18:00 Lipase 114 U/L (73-393) 03/06/18 18:00 Current Medications Generic Name Dose Route Start Last Admin Trade Name Freq PRN Reason Stop Dose Admin Benzocaine/Menthol 1 each 03/06/18 17:21 Cepacol Lozenge - MM PRN PRN SORE THROAT Dexamethasone Sodium Phosphate 4 mg 03/06/18 22:00 03/07/18 09:14 Decadron Injection - IVPUSH 4 mg BID JD Administration Pantoprazole Sodium 80 mg/ 100 mls @ 10 mls/hr 03/06/18 18:30 03/07/18 01:30 Sodium Chloride IVPB 10 mls/hr Q10H JD Administration 8 MG/HR Lactated Ringer's 1,000 ml in 1,000 mls @ 75 mls/hr 03/06/18 21:00 03/06/18 22:09 Lactated Ringers Solution IV 75 mls/hr ASDIR JD Administration Influenza Virus Vaccine Quadrival 60 mcg 03/07/18 11:00 Flulaval Quad [id number] IM 03/07/18 11:01 .ONCE ONE Insulin Aspart 1 vial 03/06/18 21:00 03/07/18 09:03 Novolog Vial Sliding Scale - SQ Not Given Q4H [facility] Protocol Levetiracetam 500 mg 03/06/18 22:00 03/07/18 09:14 Keppra Injection - IVPB 500 mg BID JD Administration Levothyroxine Sodium 12.5 mcg 03/07/18 07:00 03/07/18 06:21 Synthroid Injection - IVPUSH 12.5 mcg 0700 JD Administration Ondansetron HCl 4 mg 03/06/18 20:52 Zofran Injection IVPUSH Q4H PRN NAUSEA AND/OR VOMITING Constitutional: Yes: Calm Eyes: Yes: Conjunctiva Clear HENT: Yes: Normocephalic, Other (healed posterior craniotomy incision) Neck: Yes: Supple Cardiovascular: Yes: Regular Rate and Rhythm Respiratory: Yes: CTA Bilaterally, Other (Left subclavian chest port ( subcutaneous)) Gastrointestinal Inspection: Yes: Scars (healed Pfannensteil incision) ...Auscultate: Yes: Normoactive Bowel Sounds ...Palpate: Yes: Soft, Other (nontender) ...Rectal Exam: Yes: Guaiac Positive (dark brown but strongly guaiac positive stool) Edema: No Neurological: Yes: Alert Labs: CBC, BMP 03/07/18 07:00 03/07/18 07:00 INR, PTT INR 1.01 (0.83-1.09) 03/06/18 18:00 Imaging - Results Cat Scan: Report Reviewed (Shauna Enriquez Name: [facility] DEPARTMENT OF RADIOLOGY Phys: Terra Ackerman MD : 1960 Age: 57 Sex: F [facility] Acct: [id number] Loc: [address] Exam Date: 03/06/18 Status: [id number] [id number] Unit Number: [id number] EXAM#: TYPE/EXAM : RESULT: [id number] CT/ABDOMEN PELVIS CT W/O CONTR HISTORY PROVIDED: Rule out SBO TECHNIQUE: Sequential axial images were obtained from the domes of the diaphragm through the symphysis pubis. The study is limited without the use of any contrast material. The lung bases are free of acute infiltrates or pleural effusions. There are increased interstitial markings consistent with chronic lung disease. The heart is enlarged with a trace amount of pericardial fluid. There is a hiatal hernia in the retrocardiac space. There is also a mass like density within the right breast that does contain a calcification. Clinical correlation is advised. Hypodense masses are identified within the liver consistent with metastatic disease. The extent of disease would be better evaluated following intravenous contrast demonstration. The spleen, pancreas, adrenal glands and kidneys demonstrate no significant abnormalities. There are multiple tiny calcifications within each kidney consistent with nonobstructing calculi. There is no evidence of intra-abdominal or retroperitoneal lymphadenopathy or fluid collections. There is no evidence of pneumoperitoneum, bowel obstruction or intra-abdominal abscess. There is no CT evidence of acute appendicitis or diverticulitis. Examination of the pelvis demonstrates no evidence of pelvic masses, fluid collections or lymphadenopathy. There are a few sclerotic lesions within the bony skeleton suspicious for metastatic disease. A follow-up nuclear medicine bone scan may be warranted. IMPRESSION: 1. Right breast mass consistent with the patient's known malignancy. 2. Multiple liver lesions consistent with metastatic disease. 3. Collateral nephrolithiasis with no evidence of obstructive uropathy. 4. Suspected bony metastases. 5. No evidence of bowel obstruction or acute pathology within the abdomen or pelvis. Please see above discussion. Reported By: Tez Gardner MD 03/06 Technologist: Ash Arriola Transcribed Date/Time: 03/06/182220 [employer] Worker: Tez Gardner Printed Date/Time: By: Signed by: Tez Gardner Signed on: 06-Mar-2018 22:22) Problem List - Problems (1) GIB (gastrointestinal bleeding) Assessment/Plan: Given the hematemesis this is a UGI bleed. Potential bleeding sources include stress gastritis/duodenitis or ulcers in these areas. She could alternatively be bleeding from GERD, Mason ulcers or vascular ectasias. her liver disease appears to be compensated but portal gastropathy and varices cannot be excluded. I have advised a diagnostic and interventional EGD. I have discussed the procedure with Gloria in detail including informing her of the potential for such complications as perforation and hemorrhage among others. She has granted an informed consent. I did try to reach her family but no one responds to the daughter's listed #. I discussed the case with Dr Shepherd who agreed with leaving her as a service case. I discussed the case with Dr Pereira who will do the EGD this afternoon. Code(s): K92.2 - GASTROINTESTINAL HEMORRHAGE, UNSPECIFIED (2) Hematemesis Code(s): K92.0 - HEMATEMESIS (3) Breast CA Code(s): C50.919 - MALIGNANT NEOPLASM OF UNSP SITE OF UNSPECIFIED FEMALE BREAST Qualifiers: Breast location: overlapping sites of breast Laterality: right (4) Constipation Code(s): K59.00 - CONSTIPATION, UNSPECIFIED Qualifiers: Constipation type: slow transit constipation Qualified Code(s): K59.01 - Slow transit constipation (5) Diabetes Code(s): E11.9 - TYPE 2 DIABETES MELLITUS WITHOUT COMPLICATIONS Qualifiers: Diabetes mellitus type: type 2 Diabetes mellitus complication status: without complication (6) Intracranial mass Code(s): R90.0 - INTCRN SPACE-OCCUPYING LESION FOUND ON DX IMAGING OF CNSL
--- NOTE | 2018-03-07 10:25 | EKG ---
Test Reason : Blood Pressure : / mmHG Vent. Rate : 110 BPM Atrial Rate : 110 BPM P-R Int : 154 ms QRS Dur : 072 ms QT Int : 326 ms P-R-T Axes : 048 028 065 degrees QTc Int : 441 ms SINUS TACHYCARDIA POSSIBLE LEFT ATRIAL ENLARGEMENT BORDERLINE ECG WHEN COMPARED WITH ECG OF 17-DEC-2017 10:01, NO SIGNIFICANT CHANGE WAS FOUND Confirmed by MEGAN FRANKEL MD ([id number]) on 03/07/2018 10:25:32 AM Referred By: Confirmed By:MEGAN FRANKEL MD
--- NOTE | 2018-03-07 10:57 | CONSULT ---
Consultation: REQUESTING PROVIDER: CONSULT REQUEST: We have been asked to medically evaluate this patient for h/o breast Ca HISTORY OF PRESENT ILLNESS: 57 yo F with PMHx of breast CA with brain mets s/p R parietal craniotomy, on sterotactic RT, vasogenic cerebral edema, IDDM, HTN, hypothyroidism, and UTIs, who presents to ED from [facility] due to 5 day history of headache accompanied by coffee ground emesis during transport.Hgb fell 2 points 11.6->9.5. Hemodynamically stable. She is undergoing chemotherapy with Dr. Kiser at [facility] which has included pulses of steroids. Her abdominal CT reveals liver and bone metastases. Denies CP, SOB, palpitations, abdominal pain, nausea or vomiting. - History Source History Provided By: Patient Limitations to Obtaining History: Clinical Condition - Past Medical History BAND SAW MARKER: Yes: Other (BAND SAW MARKER mets in 2015- treated with stereotactic RT, parietal craniotomy in 2014) Cardio/Vascular: Yes: HTN Heme/Onc: Yes: Cancer (Right breast cancer with brain mets on chemotheapy with Dr Kiser at [facility]) Endocrine: Yes: Diabetes Mellitus, Hypothyroidism - Past Surgical History Past Surgical History: Yes: Breast Biopsy, Colonoscopy, Craniotomy (right parietal craniotomy 2014 at [facility]), - Alcohol/Substance Use Hx Alcohol Use: No History of Substance Use: reports: None - Smoking History Smoking history: Never smoked Have you smoked in the past 12 months: No Aproximately how many cigarettes per day: 0 - Social History Usual Living Arrangement: With Spouse ADL: Support Services 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, 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 [employer] Place of : Other ([place], [place]) History of Recent Travel: No - Family Disease History Family Disease History: Other: Grandparent (asthma), Father ( of unknown cause age 90), Mother (htn), Brother (3B healthy and living), Sister (4S healthy and living) REVIEW OF SYSTEMS: CONSTITUTIONAL: Absent: fever, chills, diaphoresis, generalized weakness, malaise, loss of appetite, weight change HEENT: Absent: rhinorrhea, nasal congestion, throat pain, throat swelling, difficulty swallowing, mouth swelling, ear pain, eye pain, visual changes CARDIOVASCULAR: Absent: chest pain, syncope, palpitations, irregular heart rate, lightheadedness , peripheral edema RESPIRATORY: Absent: cough, shortness of breath, dyspnea with exertion, orthopnea, wheezing, stridor, hemoptysis GASTROINTESTINAL: Absent: abdominal pain, abdominal distension, nausea, vomiting, diarrhea, constipation, melena, hematochezia GENITOURINARY: Absent: dysuria, frequency, urgency, hesitancy, hematuria, flank pain, genital pain MUSCULOSKELETAL: Absent: myalgia, arthralgia, joint swelling, back pain, neck pain SKIN: Absent: rash, itching, pallor HEMATOLOGIC/IMMUNOLOGIC: Absent: easy bleeding, easy bruising, lymphadenopathy, frequent infections ENDOCRINE: Absent: unexplained weight gain, unexplained weight loss, heat intolerance, cold intolerance NEUROLOGIC: Absent: headache, focal weakness or paresthesias, dizziness, unsteady gait, seizure, mental status changes, bladder or bowel incontinence PSYCHIATRIC: Absent: anxiety, depression, suicidal or homicidal ideation, hallucinations. PHYSICAL EXAMINATION Vital Signs - 24 hr 03/06/18 03/06/18 03/06/18 16:43 18:35 23:41 Temperature 98.6 F 98.4 F Pulse Rate 116 H Pulse Rate [ 105 H 86 Apical] Respiratory 20 20 19 Rate Blood Pressure 156/90 Blood Pressure 160/95 158/99 [Left Arm] O2 Sat by Pulse 97 96 98 Oximetry (%) 03/07/18 03/07/18 03/07/18 01:10 01:55 02:00 Temperature 98 F Pulse Rate 92 H 91 H Pulse Rate [ Apical] Respiratory 16 16 16 Rate Blood Pressure 139/97 143/85 Blood Pressure [Left Arm] O2 Sat by Pulse 96 Oximetry (%) 03/07/18 03/07/18 03/07/18 03:00 04:00 05:00 Temperature Pulse Rate 83 80 73 Pulse Rate [ Apical] Respiratory 16 Rate Blood Pressure 147/96 141/96 159/94 Blood Pressure [Left Arm] O2 Sat by Pulse Oximetry (%) 03/07/18 03/07/18 03/07/18 06:00 07:00 08:00 Temperature 98.1 F Pulse Rate 77 80 69 Pulse Rate [ Apical] Respiratory 13 16 13 Rate Blood Pressure 144/94 160/98 154/101 H Blood Pressure [Left Arm] O2 Sat by Pulse Oximetry (%) 03/07/18 10:00 Temperature 98.6 F Pulse Rate 68 Pulse Rate [ Apical] Respiratory 13 Rate Blood Pressure 161/98 Blood Pressure [Left Arm] O2 Sat by Pulse Oximetry (%) GENERAL: AAOx3, NAD HEAD: NC ,healed posterior craniotomy incision EARS, NOSE, THROAT: dry mucous membranes. NECK:Supple without lymphadenopathy, JVD, or masses. LUNGS: CTAB. No wheezes, and no crackles. No accessory muscle use. HEART: Regular rate and rhythm, normal S1 and S2 without murmur, rub or gallop. ABDOMEN: Soft, NTND, NABS, no guarding, no rebound, no masses. No hepatomegaly or splenomegaly. MUSCULOSKELETAL: Normal range of motion at all joints. No bony deformities or tenderness. No CVA tenderness. LOWER EXTREMITIES: 2+ pulses, warm, well-perfused. No calf tenderness. No peripheral edema. NEUROLOGICAL: No focal deficits. Normal speech. PSYCHIATRIC: Cooperative. Good eye contact. Appropriate mood and affect. SKIN: Warm, dry, normal turgor, no rashes or lesions noted. Laboratory Results - last 24 hr 03/06/18 03/06/18 03/06/18 18:00 18:00 18:00 WBC 11.2 H RBC 3.96 Hgb 9.5 L Hct 30.9 L MCV 77.9 L MCH 23.9 L MCHC 30.7 L RDW 17.7 H Plt Count 298 D MPV 7.9 Absolute Neuts (auto) 9.7 H Total Counted 100 Neutrophils % 86.9 H D Neutrophils % (Manual) 85.0 H Band Neutrophils % 3.0 Lymphocytes % 8.3 D Lymphocytes % (Manual) 7.0 L D Monocytes % 4.7 Monocytes % (Manual) 5 Eosinophils % 0.0 D Basophils % 0.1 Nucleated RBC % 1 H Platelet Estimate Adequate Polychromasia 1+ PT with INR INR PTT (Actin FS) Sodium 138 Potassium 4.2 Chloride 102 Carbon Dioxide 26 Anion Gap 10 BUN 24 H Creatinine 0.6 Creat Clearance w eGFR > 60 POC Glucometer Random Glucose 308 H* Lactic Acid 4.5 H* Calcium 9.2 Phosphorus Magnesium Total Bilirubin 0.2 AST 25 ALT 53 Alkaline Phosphatase 122 H Troponin I < 0.02 Total Protein 6.2 L Albumin 2.4 L Lipase 114 Urine Color Urine Appearance Urine pH Ur Specific [place] Urine Protein Urine Glucose (UA) Urine Ketones Urine Blood Urine Nitrite Urine Bilirubin Urine Urobilinogen Ur Leukocyte Esterase Urine WBC (Auto) Urine RBC (Auto) Urine Mucus Urine Yeast Stool Occult Blood Blood Type Antibody Screen 03/06/18 03/06/18 03/06/18 18:00 18:00 18:43 WBC RBC Hgb Hct MCV MCH MCHC RDW Plt Count MPV Absolute Neuts (auto) Total Counted Neutrophils % Neutrophils % (Manual) Band Neutrophils % Lymphocytes % Lymphocytes % (Manual) Monocytes % Monocytes % (Manual) Eosinophils % Basophils % Nucleated RBC % Platelet Estimate Polychromasia PT with INR 11.90 INR 1.01 PTT (Actin FS) 26.8 Sodium Potassium Chloride Carbon Dioxide Anion Gap BUN Creatinine Creat Clearance w eGFR POC Glucometer Random Glucose Lactic Acid Calcium Phosphorus Magnesium Total Bilirubin AST ALT Alkaline Phosphatase Troponin I Total Protein Albumin Lipase Urine Color Urine Appearance Urine pH Ur Specific [place] Urine Protein Urine Glucose (UA) Urine Ketones Urine Blood Urine Nitrite Urine Bilirubin Urine Urobilinogen Ur Leukocyte Esterase Urine WBC (Auto) Urine RBC (Auto) Urine Mucus Urine Yeast Stool Occult Blood Blood Type O NEGATIVE Antibody Screen Negative 03/06/18 03/06/18 03/06/18 19:47 22:32 22:32 WBC 10.5 H RBC 3.66 Hgb 8.6 L Hct 28.4 L MCV 77.5 L MCH 23.6 L MCHC 30.4 L RDW 17.9 H Plt Count 254 MPV 7.4 L Absolute Neuts (auto) 8.7 H Total Counted Neutrophils % 82.9 H Neutrophils % (Manual) Band Neutrophils % Lymphocytes % 11.3 D Lymphocytes % (Manual) Monocytes % 5.4 Monocytes % (Manual) Eosinophils % 0.1 D Basophils % 0.3 Nucleated RBC % 0 Platelet Estimate Polychromasia PT with INR INR PTT (Actin FS) Sodium Potassium Chloride Carbon Dioxide Anion Gap BUN Creatinine Creat Clearance w eGFR POC Glucometer Random Glucose Lactic Acid 2.8 H* Calcium Phosphorus Magnesium Total Bilirubin AST ALT Alkaline Phosphatase Troponin I Total Protein Albumin Lipase Urine Color Urine Appearance Urine pH Ur Specific [place] Urine Protein Urine Glucose (UA) Urine Ketones Urine Blood Urine Nitrite Urine Bilirubin Urine Urobilinogen Ur Leukocyte Esterase Urine WBC (Auto) Urine RBC (Auto) Urine Mucus Urine Yeast Stool Occult Blood Negative Blood Type Antibody Screen 03/06/18 03/07/18 03/07/18 22:42 01:39 05:00 WBC RBC Hgb Hct MCV MCH MCHC RDW Plt Count MPV Absolute Neuts (auto) Total Counted Neutrophils % Neutrophils % (Manual) Band Neutrophils % Lymphocytes % Lymphocytes % (Manual) Monocytes % Monocytes % (Manual) Eosinophils % Basophils % Nucleated RBC % Platelet Estimate Polychromasia PT with INR INR PTT (Actin FS) Sodium Potassium Chloride Carbon Dioxide Anion Gap BUN Creatinine Creat Clearance w eGFR POC Glucometer [phone] Random Glucose Lactic Acid Calcium Phosphorus Magnesium Total Bilirubin AST ALT Alkaline Phosphatase Troponin I Total Protein Albumin Lipase Urine Color Yellow Urine Appearance Turbid Urine pH 8.0 D Ur Specific [place] 1.012 Urine Protein 2+ H Urine Glucose (UA) Negative Urine Ketones Negative Urine Blood 2+ H Urine Nitrite Negative Urine Bilirubin Negative Urine Urobilinogen Negative Ur Leukocyte Esterase 3+ H Urine WBC (Auto) 1644 Urine RBC (Auto) 114 Urine Mucus Rare Urine Yeast Few Stool Occult Blood Blood Type Antibody Screen 03/07/18 03/07/18 03/07/18 06:21 07:00 07:00 WBC 10.3 H RBC 3.44 L Hgb 8.2 L Hct 26.7 L MCV 77.5 L MCH 23.9 L MCHC 30.8 L RDW 17.3 H Plt Count 239 MPV 7.7 Absolute Neuts (auto) 8.8 H Total Counted Neutrophils % 85.4 H Neutrophils % (Manual) Band Neutrophils % Lymphocytes % 9.6 Lymphocytes % (Manual) Monocytes % 4.7 Monocytes % (Manual) Eosinophils % 0.1 Basophils % 0.2 Nucleated RBC % 1 H Platelet Estimate Polychromasia PT with INR INR PTT (Actin FS) Sodium Potassium Chloride Carbon Dioxide Anion Gap BUN Creatinine Creat Clearance w eGFR POC Glucometer [phone] Random Glucose Lactic Acid Calcium Phosphorus Cancelled Magnesium Cancelled Total Bilirubin AST ALT Alkaline Phosphatase Troponin I Total Protein Albumin Lipase Urine Color Urine Appearance Urine pH Ur Specific [place] Urine Protein Urine Glucose (UA) Urine Ketones Urine Blood Urine Nitrite Urine Bilirubin Urine Urobilinogen Ur Leukocyte Esterase Urine WBC (Auto) Urine RBC (Auto) Urine Mucus Urine Yeast Stool Occult Blood Blood Type Antibody Screen 03/07/18 03/07/18 03/07/18 07:00 08:25 09:00 WBC RBC Hgb Hct MCV MCH MCHC RDW Plt Count MPV Absolute Neuts (auto) Total Counted Neutrophils % Neutrophils % (Manual) Band Neutrophils % Lymphocytes % Lymphocytes % (Manual) Monocytes % Monocytes % (Manual) Eosinophils % Basophils % Nucleated RBC % Platelet Estimate Polychromasia PT with INR INR PTT (Actin FS) Sodium 142 Potassium 4.2 Chloride 106 Carbon Dioxide 29 Anion Gap 7 L BUN 17 Creatinine 0.5 L Creat Clearance w eGFR > 60 POC Glucometer [phone] Random Glucose 154 H Lactic Acid 2.2 H* Calcium 8.6 Phosphorus 3.5 Magnesium 2.1 Total Bilirubin AST ALT Alkaline Phosphatase Troponin I Total Protein Albumin Lipase Urine Color Urine Appearance Urine pH Ur Specific [place] Urine Protein Urine Glucose (UA) Urine Ketones Urine Blood Urine Nitrite Urine Bilirubin Urine Urobilinogen Ur Leukocyte Esterase Urine WBC (Auto) Urine RBC (Auto) Urine Mucus Urine Yeast Stool Occult Blood Blood Type Antibody Screen Active Medications Generic Name Dose Route Start Last Admin Trade Name Freq PRN Reason Stop Dose Admin Benzocaine/Menthol 1 each 03/06/18 17:21 Cepacol Lozenge - MM PRN PRN SORE THROAT Dexamethasone Sodium Phosphate 4 mg 03/06/18 22:00 03/07/18 09:14 Decadron Injection - IVPUSH 4 mg BID JD Administration Pantoprazole Sodium 80 mg/ 100 mls @ 10 mls/hr 03/06/18 18:30 03/07/18 01:30 Sodium Chloride IVPB 10 mls/hr Q10H JD Administration 8 MG/HR Lactated Ringer's 1,000 ml in 1,000 mls @ 75 mls/hr 03/06/18 21:00 03/06/18 22:09 Lactated Ringers Solution IV 75 mls/hr ASDIR JD Administration Influenza Virus Vaccine Quadrival 60 mcg 03/07/18 11:00 Flulaval Quad [id number] IM 03/07/18 11:01 .ONCE ONE Insulin Aspart 1 vial 03/06/18 21:00 03/07/18 09:03 Novolog Vial Sliding Scale - SQ Not Given Q4H [facility] Protocol Levetiracetam 500 mg 03/06/18 22:00 03/07/18 09:14 Keppra Injection - IVPB 500 mg BID JD Administration Levothyroxine Sodium 12.5 mcg 03/07/18 07:00 03/07/18 06:21 Synthroid Injection - IVPUSH 12.5 mcg 0700 JD Administration Ondansetron HCl 4 mg 03/06/18 20:52 Zofran Injection IVPUSH Q4H PRN NAUSEA AND/OR VOMITING ASSESSMENT/PLAN: 57 yo F with PMHx of breast CA with brain mets s/p R parietal craniotomy, on sterotactic RT, vasogenic cerebral edema, IDDM, HTN, hypothyroidism admitted to ICU for management of GIB. Dispo: We will continue to follow the patient. Thank you for this consultative opportunity. Problem List - Problems (1) Breast CA Assessment/Plan: metastatic HER2 breast cancer s/p GKS and WBRT. * She is undergoing chemotherapy with Dr. Kiser @ [facility] which has included pulses of steroids. * CT reveals liver and bone metastases; * previously seen by rad/onc- no RT at this time * normal transfusion thresholds. * continue to monitor CBC (2) GIB (gastrointestinal bleeding) Assessment/Plan: GI consult appreciated. * UGIB given heatemesis * EGD planned this PM with Dr. Pereira. * maintain Hgb >7 * continue to monitor CBC (3) Diabetes Assessment/Plan: patient is NPO for now * ADA diet * ISS * BGM Visit type - Emergency Visit Emergency Visit: Yes ED Registration Date: 03/06/18 Care time: The patient presented to the Emergency Department on the above date and was hospitalized for further evaluation of their emergent condition. - New Patient This patient is new to me today: Yes Date on this admission: 03/07/18 - Critical Care Critical Care patient: Yes Total Critical Care Time (in minutes): 45 Critical Care Statement: The care of this patient involved high complexity decision making to prevent further life threatening deterioration of the patient 's condition and/or to evaluate & treat vital organ system(s) failure or risk of failure.
[2018-03-07] MEDS ORDERED: FLU VACCINE QUAD 60 MCG/0.5 ML (MDV 18-19) IM ONE (11:00)
[2018-03-07] MEDS: LACTATED RINGERS SOLUTION 1,000 ML/1,000 ML INFUS.BAG IV SCH (11:11)
--- NOTE | 2018-03-07 11:45 | PN ---
Teaching Attending Note Name of Resident: Guillermo Alfaro ATTENDING PHYSICIAN STATEMENT I saw and evaluated the patient. I reviewed the resident's note and discussed the case with the resident. I agree with the resident's findings and plan as documented. SUBJECTIVE: Pt seen and examined in the ICU. No further vomiting. Denies nausea or abdominal pain. Last H/H stable. OBJECTIVE: Vital Signs Period Temp Pulse Resp BP Sys/Agarwal Pulse Ox Last 24 Hr 98 F-98.6 F 68-116 13-20 139-161/85-101 95-98 Intake & Output 03/04/18 03/05/18 03/06/18 03/07/18 23:59 23:59 23:59 23:59 Intake Total 690 Balance 690 Weight 84 kg 99.427 kg Gen: NAD at rest Heart:RRR Lung: decreased breath sounds at the bases Abd: soft, nontender Ext: no edema CBC, BMP 03/07/18 07:00 03/07/18 07:00 Active Medications Benzocaine/Menthol (Cepacol Lozenge -) 1 each MM PRN PRN PRN Reason: SORE THROAT Dexamethasone Sodium Phosphate (Decadron Injection -) 4 mg IVPUSH BID [facility] Last Admin: 03/07/18 09:14 Dose: 4 mg Pantoprazole Sodium 80 mg/ (Sodium Chloride) 100 mls @ 10 mls/hr IVPB Q10H [facility] Last Admin: 03/07/18 10:52 Dose: 10 mls/hr Lactated Ringer's (Lactated Ringers Solution) 1,000 ml in 1,000 mls @ 75 mls/ hr IV ASDIR [facility] Last Admin: 03/07/18 11:11 Dose: 75 mls/hr Insulin Aspart (Novolog Vial Sliding Scale -) 1 vial SQ Q4H [facility]; Protocol Last Admin: 03/07/18 09:03 Dose: Not Given Levetiracetam (Keppra Injection -) 500 mg IVPB BID [facility] Last Admin: 03/07/18 09:14 Dose: 500 mg Levothyroxine Sodium (Synthroid Injection -) 12.5 mcg IVPUSH 0700 [facility] Last Admin: 03/07/18 06:21 Dose: 12.5 mcg Ondansetron HCl (Zofran Injection) 4 mg IVPUSH Q4H PRN PRN Reason: NAUSEA AND/OR VOMITING ASSESSMENT AND PLAN: r/o GI Bleed Anemia Lactic Acidosis Metastatic Breast Ca with brain mets s/p R craniotomy HTN DM Hypothyroidism - monitor H/H - protonix - for EGD - IVF - trend lactate - continue decadron, antiepileptics - aspiration precautions - NPO - DVT prophylaxis - can monitor on floor
[2018-03-07 12:32] LABS: HEMATOCRIT 27.7 % (32.4-45.2); HEMOGLOBIN 8.5 GM/dL (10.7-15.3); MCH 23.9 pg (25.7-33.7); MCHC 30.6 g/dl (32.0-36.0); MEAN PLT VOLUME 7.7 fl (7.5-11.1); PLATELET COUNT 247 K/MM3 (134-434); RBC 3.55 M/mm3 (3.60-5.2); RDW 17.7 % (11.6-15.6); WHITE BLOOD COUNT 9.8 K/mm3 (4.0-10.0)
--- NOTE | 2018-03-07 13:37 | PN ---
Physical Exam: SUBJECTIVE: Patient seen and examined at bedside. Denies current n/v/hematemesis , alternately denies and affirms TATUM. Unclear on reason for hospitalization. OBJECTIVE: Vital Signs Period Temp Pulse Resp BP Sys/Agarwal Pulse Ox Last 24 Hr 98 F-98.6 F 68-116 13-20 139-161/85-101 95-98 GENERAL: Awake, alert, mild confusional state HEAD: changes consistent with known oncologic Hx EYES: PERRLA, EOMI ENT: MMM, no visible oropharyngeal bleeding NECK: Trachea midline, full range of motion, supple. LUNGS: CTA b/l HEART: RRR no m/r/g ABDOMEN: +bs, soft, NT, ND EXTREMITIES: 2+ pulses, warm, well-perfused, no edema. 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 PSYCH: tangential, slightly confused SKIN: Warm, dry, normal turgor, no rashes or lesions noted Laboratory Results - last 24 hr 03/06/18 03/06/18 03/06/18 18:00 18:00 18:00 WBC 11.2 H RBC 3.96 Hgb 9.5 L Hct 30.9 L MCV 77.9 L MCH 23.9 L MCHC 30.7 L RDW 17.7 H Plt Count 298 D MPV 7.9 Absolute Neuts (auto) 9.7 H Total Counted 100 Neutrophils % 86.9 H D Neutrophils % (Manual) 85.0 H Band Neutrophils % 3.0 Lymphocytes % 8.3 D Lymphocytes % (Manual) 7.0 L D Monocytes % 4.7 Monocytes % (Manual) 5 Eosinophils % 0.0 D Basophils % 0.1 Nucleated RBC % 1 H Platelet Estimate Adequate Polychromasia 1+ PT with INR INR PTT (Actin FS) Sodium 138 Potassium 4.2 Chloride 102 Carbon Dioxide 26 Anion Gap 10 BUN 24 H Creatinine 0.6 Creat Clearance w eGFR > 60 POC Glucometer Random Glucose 308 H* Lactic Acid 4.5 H* Calcium 9.2 Phosphorus Magnesium Total Bilirubin 0.2 AST 25 ALT 53 Alkaline Phosphatase 122 H Troponin I < 0.02 Total Protein 6.2 L Albumin 2.4 L Lipase 114 Urine Color Urine Appearance Urine pH Ur Specific [place] Urine Protein Urine Glucose (UA) Urine Ketones Urine Blood Urine Nitrite Urine Bilirubin Urine Urobilinogen Ur Leukocyte Esterase Urine WBC (Auto) Urine RBC (Auto) Urine Mucus Urine Yeast Stool Occult Blood Blood Type Antibody Screen 03/06/18 03/06/18 03/06/18 18:00 18:00 18:43 WBC RBC Hgb Hct MCV MCH MCHC RDW Plt Count MPV Absolute Neuts (auto) Total Counted Neutrophils % Neutrophils % (Manual) Band Neutrophils % Lymphocytes % Lymphocytes % (Manual) Monocytes % Monocytes % (Manual) Eosinophils % Basophils % Nucleated RBC % Platelet Estimate Polychromasia PT with INR 11.90 INR 1.01 PTT (Actin FS) 26.8 Sodium Potassium Chloride Carbon Dioxide Anion Gap BUN Creatinine Creat Clearance w eGFR POC Glucometer Random Glucose Lactic Acid Calcium Phosphorus Magnesium Total Bilirubin AST ALT Alkaline Phosphatase Troponin I Total Protein Albumin Lipase Urine Color Urine Appearance Urine pH Ur Specific [place] Urine Protein Urine Glucose (UA) Urine Ketones Urine Blood Urine Nitrite Urine Bilirubin Urine Urobilinogen Ur Leukocyte Esterase Urine WBC (Auto) Urine RBC (Auto) Urine Mucus Urine Yeast Stool Occult Blood Blood Type O NEGATIVE Antibody Screen Negative 03/06/18 03/06/18 03/06/18 19:47 22:32 22:32 WBC 10.5 H RBC 3.66 Hgb 8.6 L Hct 28.4 L MCV 77.5 L MCH 23.6 L MCHC 30.4 L RDW 17.9 H Plt Count 254 MPV 7.4 L Absolute Neuts (auto) 8.7 H Total Counted Neutrophils % 82.9 H Neutrophils % (Manual) Band Neutrophils % Lymphocytes % 11.3 D Lymphocytes % (Manual) Monocytes % 5.4 Monocytes % (Manual) Eosinophils % 0.1 D Basophils % 0.3 Nucleated RBC % 0 Platelet Estimate Polychromasia PT with INR INR PTT (Actin FS) Sodium Potassium Chloride Carbon Dioxide Anion Gap BUN Creatinine Creat Clearance w eGFR POC Glucometer Random Glucose Lactic Acid 2.8 H* Calcium Phosphorus Magnesium Total Bilirubin AST ALT Alkaline Phosphatase Troponin I Total Protein Albumin Lipase Urine Color Urine Appearance Urine pH Ur Specific [place] Urine Protein Urine Glucose (UA) Urine Ketones Urine Blood Urine Nitrite Urine Bilirubin Urine Urobilinogen Ur Leukocyte Esterase Urine WBC (Auto) Urine RBC (Auto) Urine Mucus Urine Yeast Stool Occult Blood Negative Blood Type Antibody Screen 03/06/18 03/07/18 03/07/18 22:42 01:39 05:00 WBC RBC Hgb Hct MCV MCH MCHC RDW Plt Count MPV Absolute Neuts (auto) Total Counted Neutrophils % Neutrophils % (Manual) Band Neutrophils % Lymphocytes % Lymphocytes % (Manual) Monocytes % Monocytes % (Manual) Eosinophils % Basophils % Nucleated RBC % Platelet Estimate Polychromasia PT with INR INR PTT (Actin FS) Sodium Potassium Chloride Carbon Dioxide Anion Gap BUN Creatinine Creat Clearance w eGFR POC Glucometer [phone] Random Glucose Lactic Acid Calcium Phosphorus Magnesium Total Bilirubin AST ALT Alkaline Phosphatase Troponin I Total Protein Albumin Lipase Urine Color Yellow Urine Appearance Turbid Urine pH 8.0 D Ur Specific [place] 1.012 Urine Protein 2+ H Urine Glucose (UA) Negative Urine Ketones Negative Urine Blood 2+ H Urine Nitrite Negative Urine Bilirubin Negative Urine Urobilinogen Negative Ur Leukocyte Esterase 3+ H Urine WBC (Auto) 1644 Urine RBC (Auto) 114 Urine Mucus Rare Urine Yeast Few Stool Occult Blood Blood Type Antibody Screen 03/07/18 03/07/18 03/07/18 06:21 07:00 07:00 WBC 10.3 H RBC 3.44 L Hgb 8.2 L Hct 26.7 L MCV 77.5 L MCH 23.9 L MCHC 30.8 L RDW 17.3 H Plt Count 239 MPV 7.7 Absolute Neuts (auto) 8.8 H Total Counted Neutrophils % 85.4 H Neutrophils % (Manual) Band Neutrophils % Lymphocytes % 9.6 Lymphocytes % (Manual) Monocytes % 4.7 Monocytes % (Manual) Eosinophils % 0.1 Basophils % 0.2 Nucleated RBC % 1 H Platelet Estimate Polychromasia PT with INR INR PTT (Actin FS) Sodium Potassium Chloride Carbon Dioxide Anion Gap BUN Creatinine Creat Clearance w eGFR POC Glucometer [phone] Random Glucose Lactic Acid Calcium Phosphorus Cancelled Magnesium Cancelled Total Bilirubin AST ALT Alkaline Phosphatase Troponin I Total Protein Albumin Lipase Urine Color Urine Appearance Urine pH Ur Specific [place] Urine Protein Urine Glucose (UA) Urine Ketones Urine Blood Urine Nitrite Urine Bilirubin Urine Urobilinogen Ur Leukocyte Esterase Urine WBC (Auto) Urine RBC (Auto) Urine Mucus Urine Yeast Stool Occult Blood Blood Type Antibody Screen 03/07/18 03/07/18 03/07/18 07:00 08:25 09:00 WBC RBC Hgb Hct MCV MCH MCHC RDW Plt Count MPV Absolute Neuts (auto) Total Counted Neutrophils % Neutrophils % (Manual) Band Neutrophils % Lymphocytes % Lymphocytes % (Manual) Monocytes % Monocytes % (Manual) Eosinophils % Basophils % Nucleated RBC % Platelet Estimate Polychromasia PT with INR INR PTT (Actin FS) Sodium 142 Potassium 4.2 Chloride 106 Carbon Dioxide 29 Anion Gap 7 L BUN 17 Creatinine 0.5 L Creat Clearance w eGFR > 60 POC Glucometer [phone] Random Glucose 154 H Lactic Acid 2.2 H* Calcium 8.6 Phosphorus 3.5 Magnesium 2.1 Total Bilirubin AST ALT Alkaline Phosphatase Troponin I Total Protein Albumin Lipase Urine Color Urine Appearance Urine pH Ur Specific [place] Urine Protein Urine Glucose (UA) Urine Ketones Urine Blood Urine Nitrite Urine Bilirubin Urine Urobilinogen Ur Leukocyte Esterase Urine WBC (Auto) Urine RBC (Auto) Urine Mucus Urine Yeast Stool Occult Blood Blood Type Antibody Screen 03/07/18 03/07/18 12:15 12:15 WBC 9.8 RBC 3.55 L Hgb 8.5 L Hct 27.7 L MCV 78.0 L MCH 23.9 L MCHC 30.6 L RDW 17.7 H Plt Count 247 MPV 7.7 Absolute Neuts (auto) Total Counted Neutrophils % Neutrophils % (Manual) Band Neutrophils % Lymphocytes % Lymphocytes % (Manual) Monocytes % Monocytes % (Manual) Eosinophils % Basophils % Nucleated RBC % Platelet Estimate Polychromasia PT with INR INR PTT (Actin FS) Sodium Potassium Chloride Carbon Dioxide Anion Gap BUN Creatinine Creat Clearance w eGFR POC Glucometer Random Glucose Lactic Acid 1.6 Calcium Phosphorus Magnesium Total Bilirubin AST ALT Alkaline Phosphatase Troponin I Total Protein Albumin Lipase Urine Color Urine Appearance Urine pH Ur Specific [place] Urine Protein Urine Glucose (UA) Urine Ketones Urine Blood Urine Nitrite Urine Bilirubin Urine Urobilinogen Ur Leukocyte Esterase Urine WBC (Auto) Urine RBC (Auto) Urine Mucus Urine Yeast Stool Occult Blood Blood Type Antibody Screen Active Medications Generic Name Dose Route Start Last Admin Trade Name Freq PRN Reason Stop Dose Admin Benzocaine/Menthol 1 each 03/06/18 17:21 Cepacol Lozenge - MM PRN PRN SORE THROAT Dexamethasone Sodium Phosphate 4 mg 03/06/18 22:00 03/07/18 09:14 Decadron Injection - IVPUSH 4 mg BID JD Administration Pantoprazole Sodium 80 mg/ 100 mls @ 10 mls/hr 03/06/18 18:30 03/07/18 10:52 Sodium Chloride IVPB 10 mls/hr Q10H JD Administration 8 MG/HR Lactated Ringer's 1,000 ml in 1,000 mls @ 75 mls/hr 03/06/18 21:00 03/07/18 11:11 Lactated Ringers Solution IV 75 mls/hr ASDIR JD Administration Insulin Aspart 1 vial 03/06/18 21:00 03/07/18 13:03 Novolog Vial Sliding Scale - SQ Not Given Q4H JD Protocol Levetiracetam 500 mg 03/06/18 22:00 03/07/18 09:14 Keppra Injection - IVPB 500 mg BID JD Administration Levothyroxine Sodium 12.5 mcg 03/07/18 07:00 03/07/18 06:21 Synthroid Injection - IVPUSH 12.5 mcg 0700 JD Administration Ondansetron HCl 4 mg 03/06/18 20:52 Zofran Injection IVPUSH Q4H PRN NAUSEA AND/OR VOMITING ASSESSMENT/PLAN: 57 y/o F w/ PMHx DM, HTN, hypothyroidism, 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 Presents with TATUM x 5 days, nausea, vomiting, coffee ground emesis x 1 day, found to be bleeding with Hb below baseline and falling. Admitted to ICU for close monitoring and hemodynamic support. #UGIB -NPO -Protonix drip -GI consulted, to undergo EGD this afternoon -Hb 11.6 in December, 9.5 on presentation --> 8.6 --> 8.2 --> 8.5 -monitor CBC, transfusion threshhold 8 or hemodynamic instability per GI #oncologic -CT a/p demonstrates further mets to liver and bone -cont dexamethasone/keppra -currently undergoing chemotherapy w/ Dr. Kiser at [facility], including pulsatile steroids -no further RT indicated #endocrine -DM ISS -hypothyroid LTX 12.5mcg IV (1/2 of home dose 25 PO until cleared for PO intake) #FEN -LR 75 -monitor CMP -NPO until cleared by GI -PPx -DVT: SCDs (non-pharmacologic in light of bleeding) -GI: Protonix gtt #dispo -transfer to med-surg if no active bleeding on EGD Visit type - Emergency Visit Emergency Visit: Yes ED Registration Date: 03/06/18 Care time: The patient presented to the Emergency Department on the above date and was hospitalized for further evaluation of their emergent condition. - New Patient This patient is new to me today: Yes Date on this admission: 03/07/18 - Critical Care Critical Care patient: Yes Total Critical Care Time (in minutes): 40 Critical Care Statement: The care of this patient involved high complexity decision making to prevent further life threatening deterioration of the patient 's condition and/or to evaluate & treat vital organ system(s) failure or risk of failure.
[2018-03-07 13:42] LABS: PLATELET ESTIMATE NORMAL
[2018-03-07] MEDS ORDERED: ONDANSETRON 4 MG/2 ML VIAL IVPUSH PRN (18:24)
[2018-03-07] MEDS ORDERED: LACTATED RINGERS SOLUTION 1,000 ML/1,000 ML INFUS.BAG IV SCH (18:24)
[2018-03-07] MEDS ORDERED: BENZOCAINE/MENTH/CETYLPYRD CL 1 EACH LOZENGE MM PRN (18:34)
--- NOTE | 2018-03-07 18:42 | PN ---
Progress Note (short form) - Note Progress Note: Spoke with Dr. Pereira, Pt. able to be started on regular diet, protonix 40mg IV Daily, sent Hypylori stool Ag, and restarted Losartan 100mg b/c Pt. was hypertensive to the 170s/100s. Discontinued the protonix drip.
[2018-03-07] MEDS ORDERED: PANTOPRAZOLE SODIUM 40 MG VIAL IVPUSH SCH (18:45)
[2018-03-07] MEDS: LOSARTAN POTASSIUM 50 MG TABLET (FP) PO SCH (18:55)
[2018-03-07] MEDS ORDERED: ONDANSETRON 4 MG TABLET PO PRN (19:25)
[2018-03-07] MEDS ORDERED: INSULIN SLIDING SCALE (NOVOLOG) 1 VIAL SQ SCH (21:00)
[2018-03-07] MEDS ORDERED: DEXAMETHASONE SOD PHOSPHATE 4 MG/1 ML VIAL IVPUSH SCH (22:00)
[2018-03-07] MEDS ORDERED: levETIRAcetam 500 MG/5 ML INJECTION VIAL IVPB SCH (22:00)
[2018-03-07] MEDS: MOXIFLOXACIN HCL 0.5% OPHTHALMIC 3 ML BOTTLE OU SCH (22:07)
[2018-03-07] MEDS: NYSTATIN 100,000 UNIT/GM TOPICAL CREAM 15 GM TUBE TP SCH (22:09)
[2018-03-07] MEDS: LIDOCAINE PATCH REMOVAL MC SCH (22:10)
[2018-03-07] MEDS: NYSTATIN POWDER 100,000 UNITS/GM - 15 GM TOPICAL POWDER TP SCH (22:11)
[2018-03-07] MEDS: levETIRAcetam 500 MG TABLET (FP) PO SCH (22:11)
[2018-03-07] MEDS: DEXAMETHASONE 4 MG TABLET (FP) PO SCH (22:11)
[2018-03-08] MEDS ORDERED: PANTOPRAZOLE SODIUM 80 MG in SODIUM CHLORIDE 100 ML IVPB SCH (00:30)
[2018-03-08] MEDS: LEVOTHYROXINE NA 25 MCG TABLET (FP) PO SCH (05:59)
[2018-03-08] MEDS: MOXIFLOXACIN HCL 0.5% OPHTHALMIC 3 ML BOTTLE OU SCH ×2 (06:00→14:53)
[2018-03-08] MEDS: INSULIN SLIDING SCALE (NOVOLOG) 1 VIAL SQ SCH ×4 (06:13→23:14)
[2018-03-08] MEDS ORDERED: LEVOTHYROXINE SODIUM 100 MCG VIAL IVPUSH SCH ×2 (07:00)
[2018-03-08 07:09] LABS: BASO % 0.3 % (0-2.0); EOS % 0.1 % (0-4.5); HEMATOCRIT 26.4 % (32.4-45.2); HEMOGLOBIN 8.2 GM/dL (10.7-15.3); LYMPH % 10.6 % (8-40); MCH 23.7 pg (25.7-33.7); MCHC 30.9 g/dl (32.0-36.0); MEAN CELL VOLUME 76.7 fl (80-96); MONO % 3.9 % (3.8-10.2); NEUT % 85.1 % (42.8-82.8); PLATELET COUNT 237 K/MM3 (134-434); RBC 3.44 M/mm3 (3.60-5.2); RDW 17.5 % (11.6-15.6); WHITE BLOOD COUNT 8.4 K/mm3 (4.0-10.0)
[2018-03-08 07:18] LABS: ALBUMIN 2.2 g/dl (3.4-5.0); ALK PHOS 76 U/L (45-117); ANION GAP 9 MMOL/L (8-16); BILIRUBIN,TOTAL 0.3 mg/dL (0.2-1); BLOOD UREA NITROGEN 12 mg/dL (7-18); CALCIUM 8.6 mg/dL (8.5-10.1); CHLORIDE 105 mmol/L (98-107); CO2 27 mmol/L (21-32); CREATININE 0.4 mg/dL (0.55-1.3); GLUCOSE,RANDOM 199 mg/dL (74-106); MAGNESIUM 1.9 mg/dL (1.8-2.4); PHOSPHOROUS 3.8 mg/dL (2.5-4.9); POTASSIUM 3.8 mmol/L (3.5-5.1); SGOT/AST 18 U/L (15-37); SGPT/ALT 39 U/L (13-61); SODIUM 141 mmol/L (136-145); TOT PROT 5.3 g/dl (6.4-8.2)
[2018-03-08 07:30] LABS: INR 1.12 (0.83-1.09); PROTHROMBIN TIME (PATIENT) 13.2 SEC (9.7-13.0)
--- NOTE | 2018-03-08 09:02 | PN ---
Physical Exam: SUBJECTIVE: Patient seen and examined at bedside. No overnight events. No new events. Denies CP, TATUM, SOB, abdominal pain, nausea or vomiting. OBJECTIVE: Vital Signs Period Temp Pulse Resp BP Sys/Agarwal Pulse Ox Last 24 Hr 97.4 F-98.6 F 60-91 13-22 132-175/80-99 96-100 GENERAL: AAOx3, NAD HEAD: NCAT EYES: PERRL, EOMI, sclera anicteric, conjunctiva clear. No ptosis. ENT: moist mucous membranes. LUNGS: CTAB, no wheezes, no crackles, no accessory muscle use. HEART: RRR, S1, S2 without murmur, rub or gallop. ABDOMEN: Soft, nontender, nondistended, normoactive bowel sounds, no guarding, no rebound, no hepatosplenomegaly, no masses. EXTREMITIES: 2+ pulses, warm, well-perfused, no edema. NEUROLOGICAL: Cranial nerves II through XII grossly intact. Normal speech, gait not observed. PSYCH: Normal mood, normal affect. SKIN: Warm, dry, normal turgor, no rashes or lesions noted Laboratory Results - last 24 hr 03/07/18 03/07/18 03/07/18 05:00 07:00 08:25 WBC RBC Hgb Hct MCV MCH MCHC RDW Plt Count MPV Absolute Neuts (auto) Neutrophils % Neutrophils % (Manual) 86.1 H Band Neutrophils % 0.0 Lymphocytes % Lymphocytes % (Manual) 11.9 D Monocytes % Monocytes % (Manual) 1 L Eosinophils % Eosinophils % (Manual) 0.0 Basophils % Basophils % (Manual) 0.0 Myelocytes % (Man) 0 D Promyelocytes % (Man) 0 Blast Cells % (Manual) 0 Nucleated RBC % Metamyelocytes 1 D Platelet Estimate Normal PT with INR INR Sodium Potassium Chloride Carbon Dioxide Anion Gap BUN Creatinine Creat Clearance w eGFR POC Glucometer Random Glucose Lactic Acid 2.2 H* Calcium Phosphorus Magnesium Total Bilirubin AST ALT Alkaline Phosphatase Total Protein Albumin Urine Color Yellow Urine Appearance Turbid Urine pH 8.0 D Ur Specific [place] 1.012 Urine Protein 2+ H Urine Glucose (UA) Negative Urine Ketones Negative Urine Blood 2+ H Urine Nitrite Negative Urine Bilirubin Negative Urine Urobilinogen Negative Ur Leukocyte Esterase 3+ H Urine WBC (Auto) 1644 Urine RBC (Auto) 114 Urine Mucus Rare Urine Yeast Few Stool Occult Blood 03/07/18 03/07/18 03/07/18 09:00 12:15 12:15 WBC 9.8 RBC 3.55 L Hgb 8.5 L Hct 27.7 L MCV 78.0 L MCH 23.9 L MCHC 30.6 L RDW 17.7 H Plt Count 247 MPV 7.7 Absolute Neuts (auto) Neutrophils % Neutrophils % (Manual) Band Neutrophils % Lymphocytes % Lymphocytes % (Manual) Monocytes % Monocytes % (Manual) Eosinophils % Eosinophils % (Manual) Basophils % Basophils % (Manual) Myelocytes % (Man) Promyelocytes % (Man) Blast Cells % (Manual) Nucleated RBC % Metamyelocytes Platelet Estimate PT with INR INR Sodium Potassium Chloride Carbon Dioxide Anion Gap BUN Creatinine Creat Clearance w eGFR POC Glucometer [phone] Random Glucose Lactic Acid 1.6 Calcium Phosphorus Magnesium Total Bilirubin AST ALT Alkaline Phosphatase Total Protein Albumin Urine Color Urine Appearance Urine pH Ur Specific [place] Urine Protein Urine Glucose (UA) Urine Ketones Urine Blood Urine Nitrite Urine Bilirubin Urine Urobilinogen Ur Leukocyte Esterase Urine WBC (Auto) Urine RBC (Auto) Urine Mucus Urine Yeast Stool Occult Blood 03/07/18 03/07/18 03/07/18 13:02 15:30 17:14 WBC RBC Hgb Hct MCV MCH MCHC RDW Plt Count MPV Absolute Neuts (auto) Neutrophils % Neutrophils % (Manual) Band Neutrophils % Lymphocytes % Lymphocytes % (Manual) Monocytes % Monocytes % (Manual) Eosinophils % Eosinophils % (Manual) Basophils % Basophils % (Manual) Myelocytes % (Man) Promyelocytes % (Man) Blast Cells % (Manual) Nucleated RBC % Metamyelocytes Platelet Estimate PT with INR INR Sodium Potassium Chloride Carbon Dioxide Anion Gap BUN Creatinine Creat Clearance w eGFR POC Glucometer [phone] Random Glucose Lactic Acid Calcium Phosphorus Magnesium Total Bilirubin AST ALT Alkaline Phosphatase Total Protein Albumin Urine Color Urine Appearance Urine pH Ur Specific [place] Urine Protein Urine Glucose (UA) Urine Ketones Urine Blood Urine Nitrite Urine Bilirubin Urine Urobilinogen Ur Leukocyte Esterase Urine WBC (Auto) Urine RBC (Auto) Urine Mucus Urine Yeast Stool Occult Blood Negative 03/07/18 03/08/18 03/08/18 22:00 05:30 05:30 WBC 8.4 RBC 3.44 L Hgb 8.2 L Hct 26.4 L MCV 76.7 L MCH 23.7 L MCHC 30.9 L RDW 17.5 H Plt Count 237 MPV 8.0 Absolute Neuts (auto) 7.2 Neutrophils % 85.1 H Neutrophils % (Manual) Band Neutrophils % Lymphocytes % 10.6 Lymphocytes % (Manual) Monocytes % 3.9 Monocytes % (Manual) Eosinophils % 0.1 Eosinophils % (Manual) Basophils % 0.3 Basophils % (Manual) Myelocytes % (Man) Promyelocytes % (Man) Blast Cells % (Manual) Nucleated RBC % 0 Metamyelocytes Platelet Estimate PT with INR 13.20 H INR 1.12 H Sodium Potassium Chloride Carbon Dioxide Anion Gap BUN Creatinine Creat Clearance w eGFR POC Glucometer [phone] Random Glucose Lactic Acid Calcium Phosphorus Magnesium Total Bilirubin AST ALT Alkaline Phosphatase Total Protein Albumin Urine Color Urine Appearance Urine pH Ur Specific [place] Urine Protein Urine Glucose (UA) Urine Ketones Urine Blood Urine Nitrite Urine Bilirubin Urine Urobilinogen Ur Leukocyte Esterase Urine WBC (Auto) Urine RBC (Auto) Urine Mucus Urine Yeast Stool Occult Blood 03/08/18 03/08/18 05:30 06:06 WBC RBC Hgb Hct MCV MCH MCHC RDW Plt Count MPV Absolute Neuts (auto) Neutrophils % Neutrophils % (Manual) Band Neutrophils % Lymphocytes % Lymphocytes % (Manual) Monocytes % Monocytes % (Manual) Eosinophils % Eosinophils % (Manual) Basophils % Basophils % (Manual) Myelocytes % (Man) Promyelocytes % (Man) Blast Cells % (Manual) Nucleated RBC % Metamyelocytes Platelet Estimate PT with INR INR Sodium 141 Potassium 3.8 Chloride 105 Carbon Dioxide 27 Anion Gap 9 BUN 12 Creatinine 0.4 L Creat Clearance w eGFR > 60 POC Glucometer [phone] Random Glucose 199 H Lactic Acid Calcium 8.6 Phosphorus 3.8 Magnesium 1.9 Total Bilirubin 0.3 AST 18 ALT 39 Alkaline Phosphatase 76 Total Protein 5.3 L Albumin 2.2 L Urine Color Urine Appearance Urine pH Ur Specific [place] Urine Protein Urine Glucose (UA) Urine Ketones Urine Blood Urine Nitrite Urine Bilirubin Urine Urobilinogen Ur Leukocyte Esterase Urine WBC (Auto) Urine RBC (Auto) Urine Mucus Urine Yeast Stool Occult Blood Active Medications Generic Name Dose Route Start Last Admin Trade Name Freq PRN Reason Stop Dose Admin Benzocaine/Menthol 1 each 03/07/18 18:34 Cepacol Lozenge - MM PRN PRN SORE THROAT Dexamethasone 4 mg 03/07/18 22:00 03/07/18 22:11 Decadron - PO 4 mg BID JD Administration Furosemide 20 mg 03/08/18 10:00 Lasix - PO DAILY JD Insulin Aspart 1 vial 03/07/18 22:00 03/08/18 06:13 Novolog Vial Sliding Scale - SQ 2 units ACHS JD Administration Protocol Levetiracetam 500 mg 03/07/18 22:00 03/07/18 22:11 Keppra - PO 500 mg BID JD Administration Levothyroxine Sodium 25 mcg 03/08/18 07:00 03/08/18 05:59 Synthroid - PO 25 mcg 0700 JD Administration Lidocaine 1 patch 03/08/18 10:00 Lidoderm Patch - TP DAILY JD Losartan Potassium 100 mg 03/07/18 18:45 03/07/18 18:55 Cozaar - PO 100 mg DAILY JD Administration Miscellaneous 1 each 03/07/18 22:00 03/07/18 22:10 Lidoderm Patch Removal MC 1 each DAILY@2200 JD Administration Moxifloxacin HCl 1 drop 03/07/18 22:00 03/08/18 06:00 Vigamox 0.5% Eye Drops - OU 1 drop TID JD Administration Nystatin 1 applic 03/07/18 22:00 03/07/18 22:09 Mycostatin Cream - TP 1 applic BID JD Administration Nystatin 1 applic 03/07/18 22:00 03/07/18 22:11 Nystop Powder - TP 1 applic BID JD Administration Ondansetron HCl 4 mg 03/07/18 19:25 Zofran - PO Q6H PRN NAUSEA Pantoprazole Sodium 40 mg 03/08/18 10:00 Protonix - PO DAILY JD ASSESSMENT/PLAN: Problem List - Problems (1) GIB (gastrointestinal bleeding) Assessment/Plan: GI consult appreciated. 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 * She is undergoing chemotherapy with Dr. Kiser @ [facility] which has included pulses of steroids. * CT reveals liver and bone metastases; * previously seen by rad/onc- no RT at this time * normal transfusion thresholds. * continue to monitor CBC (3) Diabetes Assessment/Plan: patient is NPO for now * ADA diet * ISS * BGM Visit type - Emergency Visit Emergency Visit: Yes ED Registration Date: 03/06/18 Care time: The patient presented to the Emergency Department on the above date and was hospitalized for further evaluation of their emergent condition. - New Patient This patient is new to me today: Yes Date on this admission: 03/13/18 - Critical Care Critical Care patient: No
[2018-03-08] MEDS: DEXAMETHASONE 4 MG TABLET (FP) PO SCH ×2 (09:55→23:14)
[2018-03-08] MEDS: PANTOPRAZOLE 40 MG TABLET (FP) PO SCH (09:55)
[2018-03-08] MEDS: FUROSEMIDE 20 MG TABLET (FP) PO SCH (09:55)
[2018-03-08] MEDS: LOSARTAN POTASSIUM 50 MG TABLET (FP) PO SCH (09:55)
[2018-03-08] MEDS: levETIRAcetam 500 MG TABLET (FP) PO SCH ×2 (09:55→23:14)
[2018-03-08] MEDS: NYSTATIN 100,000 UNIT/GM TOPICAL CREAM 15 GM TUBE TP SCH (09:56)
[2018-03-08] MEDS: NYSTATIN POWDER 100,000 UNITS/GM - 15 GM TOPICAL POWDER TP SCH (09:56)
--- NOTE | 2018-03-08 11:24 | PN ---
Physical Exam: SUBJECTIVE: Patient seen and examined at bedside. Denies any current GI symptoms. Results of EGD explained. Does complain of L leg pain. OBJECTIVE: Vital Signs Period Temp Pulse Resp BP Sys/Agarwal Pulse Ox Last 24 Hr 97.4 F-98.6 F 60-91 14-22 132-175/80-99 96-100 GENERAL: Awake, alert, mild confusional state improved vs yesterday HEAD: changes consistent with known oncologic Hx EYES: PERRLA, EOMI ENT: MMM, no visible oropharyngeal bleeding NECK: Trachea midline, full range of motion, supple. LUNGS: CTA b/l HEART: RRR no m/r/g ABDOMEN: +bs, soft, NT, ND EXTREMITIES: 2+ pulses, warm, well-perfused, no erythema/warmth/induration/ swelling/reproducible pain in LLE Charcot ankles b/l. 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 PSYCH: tangential, slightly confused SKIN: Warm, dry, normal turgor, no rashes or lesions noted Laboratory Results - last 24 hr 03/07/18 03/07/18 03/07/18 07:00 12:15 12:15 WBC 9.8 RBC 3.55 L Hgb 8.5 L Hct 27.7 L MCV 78.0 L MCH 23.9 L MCHC 30.6 L RDW 17.7 H Plt Count 247 MPV 7.7 Absolute Neuts (auto) Neutrophils % Neutrophils % (Manual) 86.1 H Band Neutrophils % 0.0 Lymphocytes % Lymphocytes % (Manual) 11.9 D Monocytes % Monocytes % (Manual) 1 L Eosinophils % Eosinophils % (Manual) 0.0 Basophils % Basophils % (Manual) 0.0 Myelocytes % (Man) 0 D Promyelocytes % (Man) 0 Blast Cells % (Manual) 0 Nucleated RBC % Metamyelocytes 1 D Platelet Estimate Normal PT with INR INR Sodium Potassium Chloride Carbon Dioxide Anion Gap BUN Creatinine Creat Clearance w eGFR POC Glucometer Random Glucose Lactic Acid 1.6 Calcium Phosphorus Magnesium Total Bilirubin AST ALT Alkaline Phosphatase Total Protein Albumin Stool Occult Blood 03/07/18 03/07/18 03/07/18 13:02 15:30 17:14 WBC RBC Hgb Hct MCV MCH MCHC RDW Plt Count MPV Absolute Neuts (auto) Neutrophils % Neutrophils % (Manual) Band Neutrophils % Lymphocytes % Lymphocytes % (Manual) Monocytes % Monocytes % (Manual) Eosinophils % Eosinophils % (Manual) Basophils % Basophils % (Manual) Myelocytes % (Man) Promyelocytes % (Man) Blast Cells % (Manual) Nucleated RBC % Metamyelocytes Platelet Estimate PT with INR INR Sodium Potassium Chloride Carbon Dioxide Anion Gap BUN Creatinine Creat Clearance w eGFR POC Glucometer [phone] Random Glucose Lactic Acid Calcium Phosphorus Magnesium Total Bilirubin AST ALT Alkaline Phosphatase Total Protein Albumin Stool Occult Blood Negative 03/07/18 03/08/18 03/08/18 22:00 05:30 05:30 WBC 8.4 RBC 3.44 L Hgb 8.2 L Hct 26.4 L MCV 76.7 L MCH 23.7 L MCHC 30.9 L RDW 17.5 H Plt Count 237 MPV 8.0 Absolute Neuts (auto) 7.2 Neutrophils % 85.1 H Neutrophils % (Manual) Band Neutrophils % Lymphocytes % 10.6 Lymphocytes % (Manual) Monocytes % 3.9 Monocytes % (Manual) Eosinophils % 0.1 Eosinophils % (Manual) Basophils % 0.3 Basophils % (Manual) Myelocytes % (Man) Promyelocytes % (Man) Blast Cells % (Manual) Nucleated RBC % 0 Metamyelocytes Platelet Estimate PT with INR 13.20 H INR 1.12 H Sodium Potassium Chloride Carbon Dioxide Anion Gap BUN Creatinine Creat Clearance w eGFR POC Glucometer [phone] Random Glucose Lactic Acid Calcium Phosphorus Magnesium Total Bilirubin AST ALT Alkaline Phosphatase Total Protein Albumin Stool Occult Blood 03/08/18 03/08/18 03/08/18 05:30 06:06 10:12 WBC RBC Hgb Hct MCV MCH MCHC RDW Plt Count MPV Absolute Neuts (auto) Neutrophils % Neutrophils % (Manual) Band Neutrophils % Lymphocytes % Lymphocytes % (Manual) Monocytes % Monocytes % (Manual) Eosinophils % Eosinophils % (Manual) Basophils % Basophils % (Manual) Myelocytes % (Man) Promyelocytes % (Man) Blast Cells % (Manual) Nucleated RBC % Metamyelocytes Platelet Estimate PT with INR INR Sodium 141 Potassium 3.8 Chloride 105 Carbon Dioxide 27 Anion Gap 9 BUN 12 Creatinine 0.4 L Creat Clearance w eGFR > 60 POC Glucometer [phone] Random Glucose 199 H Lactic Acid Calcium 8.6 Phosphorus 3.8 Magnesium 1.9 Total Bilirubin 0.3 AST 18 ALT 39 Alkaline Phosphatase 76 Total Protein 5.3 L Albumin 2.2 L Stool Occult Blood Active Medications Generic Name Dose Route Start Last Admin Trade Name Freq PRN Reason Stop Dose Admin Benzocaine/Menthol 1 each 03/07/18 18:34 Cepacol Lozenge - MM PRN PRN SORE THROAT Dexamethasone 4 mg 03/07/18 22:00 03/08/18 09:55 Decadron - PO 4 mg BID JD Administration Furosemide 20 mg 03/08/18 10:00 03/08/18 09:55 Lasix - PO 20 mg DAILY JD Administration Ceftriaxone Sodium 1 gm/ 100 mls @ 200 mls/hr 03/08/18 11:15 Dextrose IVPB 03/11/18 11:14 DAILY JD Protocol Insulin Aspart 1 vial 03/07/18 22:00 03/08/18 06:13 Novolog Vial Sliding Scale - SQ 2 units ACHS JD Administration Protocol Levetiracetam 500 mg 03/07/18 22:00 03/08/18 09:55 Keppra - PO 500 mg BID JD Administration Levothyroxine Sodium 25 mcg 03/08/18 07:00 03/08/18 05:59 Synthroid - PO 25 mcg 0700 JD Administration Lidocaine 1 patch 03/08/18 10:00 Lidoderm Patch - TP DAILY JD Losartan Potassium 100 mg 03/07/18 18:45 03/08/18 09:55 Cozaar - PO 100 mg DAILY JD Administration Miscellaneous 1 each 03/07/18 22:00 03/07/18 22:10 Lidoderm Patch Removal MC 1 each DAILY@2200 JD Administration Moxifloxacin HCl 1 drop 03/07/18 22:00 03/08/18 06:00 Vigamox 0.5% Eye Drops - OU 1 drop TID JD Administration Nystatin 1 applic 03/07/18 22:00 03/08/18 09:56 Mycostatin Cream - TP 1 applic BID JD Administration Nystatin 1 applic 03/07/18 22:00 03/08/18 09:56 Nystop Powder - TP 1 applic BID JD Administration Ondansetron HCl 4 mg 03/07/18 19:25 Zofran - PO Q6H PRN NAUSEA Pantoprazole Sodium 40 mg 03/08/18 10:00 03/08/18 09:55 Protonix - PO 40 mg DAILY JD Administration ASSESSMENT/PLAN: 57 y/o F w/ PMHx DM, HTN, hypothyroidism, 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 Presents with TATUM x 5 days, nausea, vomiting, coffee ground emesis x 1 day, found to be bleeding with Hb below baseline and falling. Admitted to ICU for close monitoring and hemodynamic support. #UGIB -EGD: esophagitis, linear ulcer, no bleeding -Protonix drip--> Protonix PO -Hb stable, monitor CBC #oncologic -CT a/p demonstrates further mets to liver and bone -cont dexamethasone/keppra -currently undergoing chemotherapy w/ Dr. Kiser at [facility], including pulsatile steroids -no further RT indicated #HTN -home Losartan #endocrine -DM ISS -home LTX 25 #ID -proteus on UCx -ceftriaxone x 3 days #LLE pain -tylenol PRN -lidocaine patch #FEN -no IVF -monitor CMP -regular diet -PPx -DVT: SCDs (non-pharmacologic in light of bleeding) -GI: Protonix #dispo -transfer to med-surg Visit type - Emergency Visit Emergency Visit: No - New Patient This patient is new to me today: No - Critical Care Critical Care patient: Yes Total Critical Care Time (in minutes): 40 Critical Care Statement: The care of this patient involved high complexity decision making to prevent further life threatening deterioration of the patient 's condition and/or to evaluate & treat vital organ system(s) failure or risk of failure.
[2018-03-08] MEDS ORDERED: DEXTROSE 5%-WATER - 50 ML IVPB ONE (11:35)
[2018-03-08] MEDS ORDERED: cefTRIAXone SODIUM 1 GM VIAL ONE (11:35)
[2018-03-08] MEDS: CEFTRIAXONE 1 GM in DEXTROSE 5%-WATER - 50 ML IVPB SCH (11:38)
--- NOTE | 2018-03-08 11:48 | PN ---
Teaching Attending Note Name of Resident: Guillermo Alfaro ATTENDING PHYSICIAN STATEMENT I saw and evaluated the patient. I reviewed the resident's note and discussed the case with the resident. I agree with the resident's findings and plan as documented. SUBJECTIVE: Pt seen and examined in the ICU. s/p EGD showing esophagitis and gastritis. No further hematemesis. No shortness of breath or chest pain. H/H stable. OBJECTIVE: Vital Signs Period Temp Pulse Resp BP Sys/Agarwal Pulse Ox Last 24 Hr 97.4 F-98.6 F 60-91 14-22 132-175/80-99 96-100 Intake & Output 03/05/18 03/06/18 03/07/18 03/08/18 23:59 23:59 23:59 23:59 Intake Total 2310 800 Balance 2310 800 Weight 84 kg 99.427 kg 100.199 kg Gen: NAD at rest Heart: RRR Lung: decreased breath sounds at the bases Abd: soft, nontender Ext: no edema CBC, BMP 03/08/18 05:30 03/08/18 05:30 Active Medications Acetaminophen (Tylenol -) 325 mg PO Q4H PRN PRN Reason: PAIN Benzocaine/Menthol (Cepacol Lozenge -) 1 each MM PRN PRN PRN Reason: SORE THROAT Dexamethasone (Decadron -) 4 mg PO BID [facility] Last Admin: 03/08/18 09:55 Dose: 4 mg Furosemide (Lasix -) 20 mg PO DAILY [facility] Last Admin: 03/08/18 09:55 Dose: 20 mg Ceftriaxone Sodium 1 gm/ (Dextrose) 50 mls @ 100 mls/hr IVPB DAILY [facility]; Protocol Stop: 03/11/18 11:14 Last Admin: 03/08/18 11:38 Dose: 100 mls/hr Insulin Aspart (Novolog Vial Sliding Scale -) 1 vial SQ ACHS JD; Protocol Last Admin: 03/08/18 11:38 Dose: 2 units Levetiracetam (Keppra -) 500 mg PO BID [facility] Last Admin: 03/08/18 09:55 Dose: 500 mg Levothyroxine Sodium (Synthroid -) 25 mcg PO 0700 JD Last Admin: 03/08/18 05:59 Dose: 25 mcg Lidocaine (Lidoderm Patch -) 1 patch TP DAILY [facility] Losartan Potassium (Cozaar -) 100 mg PO DAILY [facility] Last Admin: 03/08/18 09:55 Dose: 100 mg Miscellaneous (Lidoderm Patch Removal) 1 each MC DAILY@2200 [facility] Last Admin: 03/07/18 22:10 Dose: 1 each Moxifloxacin HCl (Vigamox 0.5% Eye Drops -) 1 drop OU TID [facility] Last Admin: 03/08/18 06:00 Dose: 1 drop Nystatin (Mycostatin Cream -) 1 applic TP BID [facility] Last Admin: 03/08/18 09:56 Dose: 1 applic Nystatin (Nystop Powder -) 1 applic TP BID [facility] Last Admin: 03/08/18 09:56 Dose: 1 applic Ondansetron HCl (Zofran -) 4 mg PO Q6H PRN PRN Reason: NAUSEA Pantoprazole Sodium (Protonix -) 40 mg PO DAILY [facility] Last Admin: 03/08/18 09:55 Dose: 40 mg ASSESSMENT AND PLAN: GI Bleed/Esophagitis Anemia Lactic Acidosis Metastatic Breast Ca with brain mets s/p R craniotomy HTN DM Hypothyroidism - monitor H/H - protonix - PO as tolerated - continue decadron, antiepileptics - DVT prophylaxis - can monitor on floor
[2018-03-08 15:13] VITALS: BMI 35.5
[2018-03-08] MEDS: LIDOCAINE 5% TOPICAL PATCH TP SCH (15:29)
--- NOTE | 2018-03-08 18:15 | PN ---
GI Progress Note Subjective: No melena reported No abdominal pain S/P EGD yesterday that revealed LA grad B reflux esophagitis and a linera ulcer in the stomach - Objective Vital Signs: Vital Signs Temperature 98.6 F 03/08/18 14:00 Pulse Rate 81 03/08/18 16:00 Respiratory Rate 20 03/08/18 16:00 Blood Pressure 154/88 03/08/18 16:00 O2 Sat by Pulse Oximetry (%) 100 03/08/18 09:00 Constitutional: Calm Eyes: No: Sclera Icterus Cardiovascular: Yes: Regular Rate and Rhythm Respiratory: Yes: CTA Bilaterally Gastrointestinal Inspection: No: Distention ...Auscultate: Yes: Normoactive Bowel Sounds ...Palpate: Yes: Soft. No: Tenderness ...Percussion: No: Tympanitic Edema: No (No LE edema) Neurological: Yes: Alert Labs: CBC, BMP 03/08/18 05:30 03/08/18 05:30 INR, PTT INR 1.12 (0.83-1.09) H 03/08/18 05:30 Problem List - Problems (1) Hematemesis Assessment/Plan: Esophagitis noted on EGD Protonix 40mg once daily Avoid NSAIDS Monitor for active ongoing GI bleeding Glycemic control. ? if she had hematemesis or coffee ground emesis. I would suspect that poor glycemic control could lead to vomiting of retained gastric content as opposed to true UGIG Code(s): K92.0 - HEMATEMESIS
--- NOTE | 2018-03-08 19:20 | CONSULT ---
Consult - text type - Consultation Consultation Note: Patient seen and examined 57F with advanced breast cancer is transferred from the [facility] after she developed hematemesis. She denies abdominal pain. She had a right parietal craniotomy at [facility] in 2014 for metastases and is s/p stereotactic RT. 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[employer] mets in 2015- treated with stereotactic RT, parietal craniotomy in 2014) Cardio/Vascular: Yes: HTN Heme/Onc: Yes: Cancer (Right breast cancer with brain mets on chemotheapy with Dr Kiser at [facility]) Endocrine: Yes: Diabetes Mellitus, Hypothyroidism - Past Surgical History Past Surgical History: Yes: Breast Biopsy, Colonoscopy, Craniotomy (right parietal craniotomy 2014 at [facility]), - Alcohol/Substance Use Hx Alcohol Use: No - Smoking History Smoking history: Never smoked - Social History Usual Living Arrangement: With Spouse ADL: Support Services 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, 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 [employer] Place of : Other ([place], [place]) - Allergies Allergies/Adverse Reactions: Allergies Allergy/AdvReac Type Severity Reaction Status Date / Time Iodinated Contrast- Oral and Allergy Verified 12/17/17 08:41 IV Dye oxycodone HCl [From Percocet] Allergy Verified 12/17/17 08:41 - Home Medications Home Medications: Ambulatory Orders Acetaminophen [Pain Relief] 650 mg PO Q4HWA PRN 03/06/18 Amoxicillin/Potassium Clav [Amox-Clav 875-125 mg Tablet] 1 each PO BID 03/06/18 Dexamethasone [Decadron] 4 mg PO BID 03/06/18 Docusate Sodium [Colace] 300 mg PO DAILY 03/06/18 Furosemide [Lasix] 20 mg PO DAILY 03/06/18 Insulin (LOG) Aspart [NovoLOG -] 0 units SQ TID 03/06/18 Insulin Aspart [Novolog] 0 unit SQ HS 03/06/18 Insulin Detemir [Levemir Flextouch] 60 unit SQ DAILY 03/06/18 Insulin Detemir [Levemir Flextouch] 75 unit SQ DAILY 03/06/18 Levetiracetam 500 mg PO BID 03/06/18 Levothyroxine [Synthroid -] 25 mcg PO DAILY 03/06/18 Lidocaine 5% Patch [Lidoderm Patch -] 1 patch TP DAILY 03/06/18 Losartan Potassium [Cozaar] 100 mg PO DAILY 03/06/18 Metformin HCl [Glucophage] 1,000 mg PO BID 03/06/18 Metoclopramide HCl [Reglan] 5 mg PO TID 03/06/18 Moxifloxacin HCl [Vigamox 0.5% Eye Drops -] 1 drop OU TID 03/06/18 Nystatin Cream [Mycostatin] 1 applic TP BID 03/06/18 Nystatin Powder [Nystop Topical Powder -] 100,000 unit TP BID 03/06/18 Ondansetron [Zofran -] 4 mg PO QID PRN 03/06/18 Pantoprazole Sodium 40 mg PO DAILY 03/06/18 Polyethylene Glycol 3350 [Miralax (For Daily Use) -] 17 gm PO TID 03/06/18 Potassium Chloride [K-Dur -] 20 meq PO DAILY 03/06/18 Active Medications Acetaminophen (Tylenol -) 325 mg PO Q4H PRN PRN Reason: PAIN Last Admin: 03/09/18 12:10 Dose: 325 mg Benzocaine/Menthol (Cepacol Lozenge -) 1 each MM PRN PRN PRN Reason: SORE THROAT Dexamethasone (Decadron -) 4 mg PO BID [facility] Last Admin: 03/09/18 12:07 Dose: 4 mg Furosemide (Lasix -) 20 mg PO DAILY [facility] Last Admin: 03/09/18 12:03 Dose: 20 mg Ceftriaxone Sodium 1 gm/ (Dextrose) 50 mls @ 100 mls/hr IVPB DAILY [facility]; Protocol Stop: 03/11/18 11:14 Last Admin: 03/09/18 12:05 Dose: 100 mls/hr Insulin Aspart (Novolog Vial Sliding Scale -) 1 vial SQ ACHS [facility]; Protocol Last Admin: 03/09/18 12:14 Dose: 10 units Levetiracetam (Keppra -) 500 mg PO BID [facility] Last Admin: 03/09/18 12:07 Dose: 500 mg Levothyroxine Sodium (Synthroid -) 25 mcg PO 0700 [facility] Last Admin: 03/09/18 06:47 Dose: 25 mcg Lidocaine (Lidoderm Patch -) 1 patch TP DAILY [facility] Last Admin: 03/09/18 12:04 Dose: 1 patch Losartan Potassium (Cozaar -) 100 mg PO DAILY [facility] Last Admin: 03/09/18 12:03 Dose: 100 mg Metformin HCl (Glucophage -) 1,000 mg PO BIDAC [facility] Last Admin: 03/09/18 06:47 Dose: 1,000 mg Miscellaneous (Lidoderm Patch Removal) 1 each MC DAILY@2200 [facility] Last Admin: 03/09/18 00:33 Dose: 1 each Moxifloxacin HCl (Vigamox 0.5% Eye Drops -) 1 drop OU TID [facility] Last Admin: 03/09/18 06:47 Dose: 1 drop Non-Formulary Medication (Insulin Detemir [Levemir Flextouch]) 75 unit SQ DAILY [facility] Nystatin (Mycostatin Cream -) 1 applic TP BID [facility] Last Admin: 03/09/18 12:20 Dose: 1 applic Nystatin (Nystop Powder -) 1 applic TP BID [facility] Last Admin: 03/09/18 12:19 Dose: 1 applic Ondansetron HCl (Zofran -) 4 mg PO Q6H PRN PRN Reason: NAUSEA Pantoprazole Sodium (Protonix -) 40 mg PO DAILY [facility] Last Admin: 03/09/18 12:03 Dose: 40 mg Family Disease History - Family Disease History Family Disease History: Other: Grandparent (asthma), Father ( of unknown cause age 90), Mother (htn), Brother (3B healthy and living), Sister (4S healthy and living) Physical Exam-GI Vital Signs: Last Vital Signs Temp Pulse Resp BP Pulse Ox 98.3 F 118 H 20 121/71 100 03/09/18 15:35 03/09/18 15:35 03/09/18 15:35 03/09/18 15:35 03/08/18 20:01 Neck: Yes: Supple Cardiovascular: Yes: Regular Rate and Rhythm Respiratory: Yes: CTA Bilaterally, Other (Left subclavian chest port ( subcutaneous)) Gastrointestinal Inspection: Yes: Scars (healed Pfannensteil incision) ext. --n o cyanosis/clubbing/edema Labs: Abnormal Lab Results 03/08/18 03/09/18 03/09/18 17:45 07:00 07:00 WBC 11.4 H RBC 3.58 L Hgb 8.4 L Hct 27.9 L MCV 77.7 L MCH 23.5 L MCHC 30.3 L RDW 17.8 H Absolute Neuts (auto) 10.0 H Neutrophils % 87.9 H Neutrophils % (Manual) 83.3 H Lymphocytes % 7.8 L D Lymphocytes % (Manual) 5.2 L D Nucleated RBC % 1 H BUN 20 H Random Glucose 573 H* 295 H Alkaline Phosphatase 124 H Total Protein 5.8 L Albumin 2.4 L A/P 57F with advanced breast cancer is transferred from the [facility] after she developed hematemesis. She denies abdominal pain. She had a right parietal craniotomy at [facility] in 2014 for metastases and is s/p stereotactic RT. CT scans reveal liver mets/sclerotic bone mets EGD--esophagitis/gastric body ulcer--chronic steroid use from brain mets? on protonix will follow
[2018-03-08] MEDS ORDERED: INSULIN (NOVOLOG) ASPART 100 UNITS/ML 10ML VIAL SQ ONE (20:15)
--- NOTE | 2018-03-08 22:48 | PN ---
Progress Note, Physician History of Present Illness: No new complaints - Current Medication List Current Medications: Active Medications Acetaminophen (Tylenol -) 325 mg PO Q4H PRN PRN Reason: PAIN Benzocaine/Menthol (Cepacol Lozenge -) 1 each MM PRN PRN PRN Reason: SORE THROAT Dexamethasone (Decadron -) 4 mg PO BID [facility] Last Admin: 03/08/18 09:55 Dose: 4 mg Furosemide (Lasix -) 20 mg PO DAILY [facility] Last Admin: 03/08/18 09:55 Dose: 20 mg Ceftriaxone Sodium 1 gm/ (Dextrose) 50 mls @ 100 mls/hr IVPB DAILY [facility]; Protocol Stop: 03/11/18 11:14 Last Admin: 03/08/18 11:38 Dose: 100 mls/hr Insulin Aspart (Novolog Vial Sliding Scale -) 1 vial SQ ACHS [facility]; Protocol Last Admin: 03/08/18 18:49 Dose: 12 units Levetiracetam (Keppra -) 500 mg PO BID [facility] Last Admin: 03/08/18 09:55 Dose: 500 mg Levothyroxine Sodium (Synthroid -) 25 mcg PO 0700 [facility] Last Admin: 03/08/18 05:59 Dose: 25 mcg Lidocaine (Lidoderm Patch -) 1 patch TP DAILY [facility] Last Admin: 03/08/18 15:29 Dose: 1 patch Losartan Potassium (Cozaar -) 100 mg PO DAILY [facility] Last Admin: 03/08/18 09:55 Dose: 100 mg Miscellaneous (Lidoderm Patch Removal) 1 each MC DAILY@2200 [facility] Last Admin: 03/07/18 22:10 Dose: 1 each Moxifloxacin HCl (Vigamox 0.5% Eye Drops -) 1 drop OU TID [facility] Last Admin: 03/08/18 14:53 Dose: 1 drop Nystatin (Mycostatin Cream -) 1 applic TP BID [facility] Last Admin: 03/08/18 09:56 Dose: 1 applic Nystatin (Nystop Powder -) 1 applic TP BID [facility] Last Admin: 03/08/18 09:56 Dose: 1 applic Ondansetron HCl (Zofran -) 4 mg PO Q6H PRN PRN Reason: NAUSEA Pantoprazole Sodium (Protonix -) 40 mg PO DAILY [facility] Last Admin: 03/08/18 09:55 Dose: 40 mg - Objective Vital Signs: Vital Signs Temperature 98 F 03/08/18 18:00 Pulse Rate 88 03/08/18 19:26 Respiratory Rate 22 H 03/08/18 19:26 Blood Pressure 164/89 03/08/18 19:26 O2 Sat by Pulse Oximetry (%) 100 03/08/18 20:01 HENT: Yes: WNL Neck: Yes: WNL, Supple Cardiovascular: Yes: WNL, Regular Rate and Rhythm Respiratory: Yes: WNL, Regular, CTA Bilaterally Gastrointestinal: Yes: WNL, Normal Bowel Sounds, Soft Labs: CBC, BMP 03/08/18 05:30 03/08/18 17:45 INR, PTT INR 1.12 (0.83-1.09) H 03/08/18 05:30 Problem List - Problems (1) GIB (gastrointestinal bleeding) Assessment/Plan: EGD showed linear ulcer instomach and reflux esophagitis H/H has remained stable Cont protonix Cont to monitor As per GI Code(s): K92.2 - GASTROINTESTINAL HEMORRHAGE, UNSPECIFIED Qualifiers: Gastritis type: unspecified gastritis (2) Anemia Assessment/Plan: ?Multifactorial Due to acute blood loss vs chronic dz Code(s): D64.9 - ANEMIA, UNSPECIFIED Qualifiers: Anemia type: unspecified type Qualified Code(s): D64.9 - Anemia, unspecified (3) Breast CA Assessment/Plan: Metastatic dz to liver/bonebrain As per onco Code(s): C50.919 - MALIGNANT NEOPLASM OF UNSP SITE OF UNSPECIFIED FEMALE BREAST Qualifiers: Breast location: overlapping sites of breast Laterality: right (4) Diabetes Assessment/Plan: Poor glycemic control Wc agree could lead to vomiting Readjust meds Endo consult Code(s): E11.9 - TYPE 2 DIABETES MELLITUS WITHOUT COMPLICATIONS Qualifiers: Diabetes mellitus type: type 2 Diabetes mellitus complication status: without complication (5) Vasogenic cerebral edema Assessment/Plan: Cont keppra/decadron Code(s): G93.6 - CEREBRAL EDEMA (6) Hypertension Assessment/Plan: BP stable Cont lasix/losartan Code(s): I10 - ESSENTIAL (PRIMARY) HYPERTENSION (7) Hypothyroidism Assessment/Plan: Cont levothyroxine Check TSH Code(s): E03.9 - HYPOTHYROIDISM, UNSPECIFIED
[2018-03-08] MEDS ORDERED: PT OWN MED DRAWER 7, Y5N ONE (23:12)
[2018-03-09] MEDS: LIDOCAINE PATCH REMOVAL MC SCH ×2 (00:33→22:10)
[2018-03-09] MEDS: NYSTATIN POWDER 100,000 UNITS/GM - 15 GM TOPICAL POWDER TP SCH ×3 (01:35→22:08)
[2018-03-09] MEDS: MOXIFLOXACIN HCL 0.5% OPHTHALMIC 3 ML BOTTLE OU SCH ×4 (01:35→22:08)
[2018-03-09] MEDS: NYSTATIN 100,000 UNIT/GM TOPICAL CREAM 15 GM TUBE TP SCH ×3 (01:35→22:07)
[2018-03-09] MEDS: LEVOTHYROXINE NA 25 MCG TABLET (FP) PO SCH (06:47)
[2018-03-09] MEDS: metFORMIN HCL 500 MG TABLET (FP) PO SCH ×2 (06:47→16:55)
[2018-03-09] MEDS: INSULIN SLIDING SCALE (NOVOLOG) 1 VIAL SQ SCH ×4 (06:48→22:08)
[2018-03-09] MEDS ORDERED: PT OWN MED DRAWER 7, Y5N ONE ×2 (06:55→10:06)
[2018-03-09 07:38] LABS: BASO % 0.1 % (0-2.0); EOS % 0.1 % (0-4.5); HEMATOCRIT 27.9 % (32.4-45.2); HEMOGLOBIN 8.4 GM/dL (10.7-15.3); LYMPH % 7.8 % (8-40); MCH 23.5 pg (25.7-33.7); MCHC 30.3 g/dl (32.0-36.0); MEAN CELL VOLUME 77.7 fl (80-96); MEAN PLT VOLUME 7.6 fl (7.5-11.1); MONO % 4.1 % (3.8-10.2); NEUT % 87.9 % (42.8-82.8); PLATELET COUNT 245 K/MM3 (134-434); RBC 3.58 M/mm3 (3.60-5.2); RDW 17.8 % (11.6-15.6); WHITE BLOOD COUNT 11.4 K/mm3 (4.0-10.0)
[2018-03-09 09:07] LABS: ALBUMIN 2.4 g/dl (3.4-5.0); ALK PHOS 124 U/L (45-117); ANION GAP 10 MMOL/L (8-16); BILIRUBIN,TOTAL 0.2 mg/dL (0.2-1); BLOOD UREA NITROGEN 20 mg/dL (7-18); CALCIUM 8.5 mg/dL (8.5-10.1); CHLORIDE 104 mmol/L (98-107); CO2 24 mmol/L (21-32); CREATININE 0.6 mg/dL (0.55-1.3); GLUCOSE,RANDOM 295 mg/dL (74-106); MAGNESIUM 2.2 mg/dL (1.8-2.4); PHOSPHOROUS 2.9 mg/dL (2.5-4.9); POTASSIUM 3.9 mmol/L (3.5-5.1); SGOT/AST 28 U/L (15-37); SGPT/ALT 39 U/L (13-61); SODIUM 139 mmol/L (136-145); TOT PROT 5.8 g/dl (6.4-8.2)
[2018-03-09] MEDS ORDERED: cefTRIAXone SODIUM 1 GM VIAL ONE ×2 (10:06→11:42)
[2018-03-09] MEDS ORDERED: DEXTROSE 5%-WATER - 50 ML IVPB ONE ×2 (10:07→11:43)
[2018-03-09 11:11] LABS: ANISOCYTOSIS 1+; MACROCYTOSIS 0; PLATELET ESTIMATE NORMAL
[2018-03-09] MEDS: PANTOPRAZOLE 40 MG TABLET (FP) PO SCH (12:03)
[2018-03-09] MEDS: LOSARTAN POTASSIUM 50 MG TABLET (FP) PO SCH (12:03)
[2018-03-09] MEDS: FUROSEMIDE 20 MG TABLET (FP) PO SCH (12:03)
[2018-03-09] MEDS: LIDOCAINE 5% TOPICAL PATCH TP SCH (12:04)
[2018-03-09] MEDS: CEFTRIAXONE 1 GM in DEXTROSE 5%-WATER - 50 ML IVPB SCH (12:05)
[2018-03-09] MEDS: DEXAMETHASONE 4 MG TABLET (FP) PO SCH ×2 (12:07→22:07)
[2018-03-09] MEDS: levETIRAcetam 500 MG TABLET (FP) PO SCH ×2 (12:07→22:07)
[2018-03-09] MEDS: ACETAMINOPHEN 325 MG TABLET (FP) PO PRN (12:10)
[2018-03-09] MEDS ORDERED: INSULIN (LEVEMIR) 100 UNITS/ML UNITS SQ SCH (22:00)
--- NOTE | 2018-03-09 22:37 | PN ---
Progress Note, Physician - Current Medication List Current Medications: Active Medications Acetaminophen (Tylenol -) 325 mg PO Q4H PRN PRN Reason: PAIN Last Admin: 03/09/18 12:10 Dose: 325 mg Benzocaine/Menthol (Cepacol Lozenge -) 1 each MM PRN PRN PRN Reason: SORE THROAT Dexamethasone (Decadron -) 4 mg PO BID [facility] Last Admin: 03/09/18 22:07 Dose: 4 mg Furosemide (Lasix -) 20 mg PO DAILY [facility] Last Admin: 03/09/18 12:03 Dose: 20 mg Ceftriaxone Sodium 1 gm/ (Dextrose) 50 mls @ 100 mls/hr IVPB DAILY [facility]; Protocol Stop: 03/11/18 11:14 Last Admin: 03/09/18 12:05 Dose: 100 mls/hr Insulin Aspart (Novolog Vial Sliding Scale -) 1 vial SQ ACHS [facility]; Protocol Last Admin: 03/09/18 22:08 Dose: 10 units Insulin Detemir (Levemir Vial) 50 units SQ HS [facility] Last Admin: 03/09/18 22:09 Dose: 50 units Levetiracetam (Keppra -) 500 mg PO BID [facility] Last Admin: 03/09/18 22:07 Dose: 500 mg Levothyroxine Sodium (Synthroid -) 25 mcg PO 0700 [facility] Last Admin: 03/09/18 06:47 Dose: 25 mcg Lidocaine (Lidoderm Patch -) 1 patch TP DAILY [facility] Last Admin: 03/09/18 12:04 Dose: 1 patch Losartan Potassium (Cozaar -) 100 mg PO DAILY [facility] Last Admin: 03/09/18 12:03 Dose: 100 mg Metformin HCl (Glucophage -) 1,000 mg PO BIDAC [facility] Last Admin: 03/09/18 16:55 Dose: 1,000 mg Miscellaneous (Lidoderm Patch Removal) 1 each MC DAILY@2200 [facility] Last Admin: 03/09/18 22:10 Dose: 1 each Moxifloxacin HCl (Vigamox 0.5% Eye Drops -) 1 drop OU TID [facility] Last Admin: 03/09/18 22:08 Dose: 1 drop Nystatin (Mycostatin Cream -) 1 applic TP BID [facility] Last Admin: 03/09/18 22:07 Dose: 1 applic Nystatin (Nystop Powder -) 1 applic TP BID [facility] Last Admin: 03/09/18 22:08 Dose: 1 applic Ondansetron HCl (Zofran -) 4 mg PO Q6H PRN PRN Reason: NAUSEA Pantoprazole Sodium (Protonix -) 40 mg PO DAILY [facility] Last Admin: 03/09/18 12:03 Dose: 40 mg - Objective Vital Signs: Vital Signs Temperature 98.0 F 03/09/18 20:25 Pulse Rate 110 H 03/09/18 20:25 Respiratory Rate 20 03/09/18 20:25 Blood Pressure 125/74 03/09/18 20:25 O2 Sat by Pulse Oximetry (%) 98 03/09/18 10:00 Labs: CBC, BMP 03/09/18 07:00 03/09/18 07:00 INR, PTT INR 1.12 (0.83-1.09) H 03/08/18 05:30 Problem List - Problems (1) GIB (gastrointestinal bleeding) Code(s): K92.2 - GASTROINTESTINAL HEMORRHAGE, UNSPECIFIED Qualifiers: Gastritis type: unspecified gastritis (2) Anemia Code(s): D64.9 - ANEMIA, UNSPECIFIED Qualifiers: Anemia type: unspecified type Qualified Code(s): D64.9 - Anemia, unspecified (3) Breast CA Code(s): C50.919 - MALIGNANT NEOPLASM OF UNSP SITE OF UNSPECIFIED FEMALE BREAST Qualifiers: Breast location: overlapping sites of breast Laterality: right (4) Diabetes Code(s): E11.9 - TYPE 2 DIABETES MELLITUS WITHOUT COMPLICATIONS Qualifiers: Diabetes mellitus type: type 2 Diabetes mellitus complication status: without complication (5) Vasogenic cerebral edema Code(s): G93.6 - CEREBRAL EDEMA (6) Hypertension Code(s): I10 - ESSENTIAL (PRIMARY) HYPERTENSION (7) Hypothyroidism Code(s): E03.9 - HYPOTHYROIDISM, UNSPECIFIED
--- NOTE | 2018-03-09 23:46 | CONSULT ---
Consult Consult Specialty:: endocrine Referred by:: jeremías myers md Reason for Consultation:: diabetes mellitus type 2. 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- treated with stereotactic RT, parietal craniotomy in 2015) Cardio/Vascular: Yes: HTN Endocrine: Yes: Diabetes Mellitus, Hypothyroidism - Past Surgical History Past Surgical History: Yes: Breast Biopsy, Colonoscopy, Craniotomy (right parietal craniotomy 2014 at [facility]), - Alcohol/Substance Use Hx Alcohol Use: No History of Substance Use: reports: None - Smoking History Smoking history: Never smoked Have you smoked in the past 12 months: No Aproximately how many cigarettes per day: 0 - Social History Usual Living Arrangement: With Spouse ADL: Support Services 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, 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 [employer] History of Recent Travel: No Home Medications - Allergies Allergies/Adverse Reactions: Allergies Allergy/AdvReac Type Severity Reaction Status Date / Time Iodinated Contrast- Oral and Allergy Verified 12/17/17 08:41 IV Dye oxycodone HCl [From Percocet] Allergy Verified 12/17/17 08:41 - Home Medications Home Medications: Ambulatory Orders Acetaminophen [Pain Relief] 650 mg PO Q4HWA PRN 03/06/18 Amoxicillin/Potassium Clav [Amox-Clav 875-125 mg Tablet] 1 each PO BID 03/06/18 Dexamethasone [Decadron] 4 mg PO BID 03/06/18 Docusate Sodium [Colace] 300 mg PO DAILY 03/06/18 Furosemide [Lasix] 20 mg PO DAILY 03/06/18 Insulin (LOG) Aspart [NovoLOG -] 0 units SQ TID 03/06/18 Insulin Aspart [Novolog] 0 unit SQ HS 03/06/18 Insulin Detemir [Levemir Flextouch] 60 unit SQ DAILY 03/06/18 Insulin Detemir [Levemir Flextouch] 75 unit SQ DAILY 03/06/18 Levetiracetam 500 mg PO BID 03/06/18 Levothyroxine [Synthroid -] 25 mcg PO DAILY 03/06/18 Lidocaine 5% Patch [Lidoderm Patch -] 1 patch TP DAILY 03/06/18 Losartan Potassium [Cozaar] 100 mg PO DAILY 03/06/18 Metformin HCl [Glucophage] 1,000 mg PO BID 03/06/18 Metoclopramide HCl [Reglan] 5 mg PO TID 03/06/18 Moxifloxacin HCl [Vigamox 0.5% Eye Drops -] 1 drop OU TID 03/06/18 Nystatin Cream [Mycostatin] 1 applic TP BID 03/06/18 Nystatin Powder [Nystop Topical Powder -] 100,000 unit TP BID 03/06/18 Ondansetron [Zofran -] 4 mg PO QID PRN 03/06/18 Pantoprazole Sodium 40 mg PO DAILY 03/06/18 Polyethylene Glycol 3350 [Miralax (For Daily Use) -] 17 gm PO TID 03/06/18 Potassium Chloride [K-Dur -] 20 meq PO DAILY 03/06/18 Family Disease History - Family Disease History Family Disease History: Other: Grandparent (asthma), Father ( of unknown cause age 90), Mother (htn), Brother (3B healthy and living), Sister (4S healthy and living) Review of Systems - Review of Systems Constitutional: reports: Lethargy, Weakness Eyes: reports: Blurred Vision HENT: reports: Difficult Swallowing Neck: reports: Decreased ROM Cardiovascular: reports: Shortness of Breath Respiratory: reports: Cough Gastrointestinal: reports: Bloating, Constipation Genitourinary: reports: No Symptoms Breasts: reports: Skin Changes Musculoskeletal: reports: Back Pain Integumentary: reports: No Symptoms Neurological: reports: Unsteady Gait, Weakness Endocrine: reports: Unexplained Weight Gain Physical Exam Vital Signs: Vital Signs Temperature 98.0 F 03/09/18 20:25 Pulse Rate 110 H 03/09/18 20:25 Respiratory Rate 20 03/09/18 20:25 Blood Pressure 125/74 03/09/18 20:25 O2 Sat by Pulse Oximetry (%) 98 03/09/18 10:00 Constitutional: Yes: Anxious Eyes: Yes: EOM Intact HENT: Yes: Normocephalic Neck: Yes: Trachea Midline Cardiovascular: Yes: Regular Rate and Rhythm Respiratory: Yes: CTA Bilaterally Gastrointestinal: Yes: Normal Bowel Sounds ...Rectal Exam: Yes: Deferred Renal/: Yes: WNL Musculoskeletal: Yes: WNL Neurological: Yes: Alert, Oriented Labs: CBC, BMP 03/09/18 07:00 03/09/18 07:00 Problem List - Problems (1) Type 2 diabetes mellitus with hyperosmolarity without nonketotic hyperglycemic-hyperosmolar coma ([facility]) Code(s): E11.00 - TYPE 2 DIAB W HYPROSM W/O NONKET HYPRGLY-HYPROS COMA ([facility]) (2) GIB (gastrointestinal bleeding) Code(s): K92.2 - GASTROINTESTINAL HEMORRHAGE, UNSPECIFIED Qualifiers: Gastritis type: unspecified gastritis (3) Chest pain, atypical Code(s): R07.89 - OTHER CHEST PAIN Assessment/Plan Current Active Problems GIB (gastrointestinal bleeding) (Acute) Hematemesis (Acute) diabetes mellitus hyhperglycemia diabetic neuropathy gastroparesis hypothyroidism Abnormal Lab Results 03/09/18 03/09/18 07:00 07:00 WBC 11.4 H RBC 3.58 L Hgb 8.4 L Hct 27.9 L MCV 77.7 L MCH 23.5 L MCHC 30.3 L RDW 17.8 H Absolute Neuts (auto) 10.0 H Neutrophils % 87.9 H Neutrophils % (Manual) 83.3 H Lymphocytes % 7.8 L D Lymphocytes % (Manual) 5.2 L D Nucleated RBC % 1 H BUN 20 H Random Glucose 295 H Alkaline Phosphatase 124 H Total Protein 5.8 L Albumin 2.4 L Laboratory Results - last 24 hr 03/08/18 03/08/18 03/09/18 17:17 17:21 06:04 WBC RBC Hgb Hct MCV MCH MCHC RDW Plt Count MPV Absolute Neuts (auto) Neutrophils % Neutrophils % (Manual) Band Neutrophils % Lymphocytes % Lymphocytes % (Manual) Monocytes % Monocytes % (Manual) Eosinophils % Eosinophils % (Manual) Basophils % Basophils % (Manual) Myelocytes % (Man) Promyelocytes % (Man) Blast Cells % (Manual) Nucleated RBC % Metamyelocytes Hypochromia Platelet Estimate Polychromasia Poikilocytosis Anisocytosis Microcytosis Macrocytosis Sodium Potassium Chloride Carbon Dioxide Anion Gap BUN Creatinine Creat Clearance w eGFR POC Glucometer > 400 > 400 286 Random Glucose Calcium Phosphorus Magnesium Total Bilirubin AST ALT Alkaline Phosphatase Total Protein Albumin TSH 03/09/18 03/09/18 03/09/18 07:00 07:00 12:13 WBC 11.4 H RBC 3.58 L Hgb 8.4 L Hct 27.9 L MCV 77.7 L MCH 23.5 L MCHC 30.3 L RDW 17.8 H Plt Count 245 MPV 7.6 Absolute Neuts (auto) 10.0 H Neutrophils % 87.9 H Neutrophils % (Manual) 83.3 H Band Neutrophils % 2.1 Lymphocytes % 7.8 L D Lymphocytes % (Manual) 5.2 L D Monocytes % 4.1 Monocytes % (Manual) 8 D Eosinophils % 0.1 Eosinophils % (Manual) 0.0 Basophils % 0.1 Basophils % (Manual) 0.0 Myelocytes % (Man) 1 D Promyelocytes % (Man) 0 Blast Cells % (Manual) 0 Nucleated RBC % 1 H Metamyelocytes 0 D Hypochromia 0 Platelet Estimate Normal Polychromasia 1+ Poikilocytosis 0 Anisocytosis 1+ Microcytosis 1+ Macrocytosis 0 Sodium 139 Potassium 3.9 Chloride 104 Carbon Dioxide 24 Anion Gap 10 BUN 20 H Creatinine 0.6 Creat Clearance w eGFR > 60 POC Glucometer 353 Random Glucose 295 H Calcium 8.5 Phosphorus 2.9 Magnesium 2.2 Total Bilirubin 0.2 AST 28 ALT 39 Alkaline Phosphatase 124 H Total Protein 5.8 L Albumin 2.4 L TSH 1.39 03/09/18 03/09/18 03/09/18 16:47 18:49 20:21 WBC RBC Hgb Hct MCV MCH MCHC RDW Plt Count MPV Absolute Neuts (auto) Neutrophils % Neutrophils % (Manual) Band Neutrophils % Lymphocytes % Lymphocytes % (Manual) Monocytes % Monocytes % (Manual) Eosinophils % Eosinophils % (Manual) Basophils % Basophils % (Manual) Myelocytes % (Man) Promyelocytes % (Man) Blast Cells % (Manual) Nucleated RBC % Metamyelocytes Hypochromia Platelet Estimate Polychromasia Poikilocytosis Anisocytosis Microcytosis Macrocytosis Sodium Potassium Chloride Carbon Dioxide Anion Gap BUN Creatinine Creat Clearance w eGFR POC Glucometer 413 403 367 Random Glucose Calcium Phosphorus Magnesium Total Bilirubin AST ALT Alkaline Phosphatase Total Protein Albumin TSH plan: bgm qid novolog scale levemir 35 units am levemir 45 units hs synthroid 50mcg daily q am
[2018-03-10] MEDS: ACETAMINOPHEN 325 MG TABLET (FP) PO PRN (02:13)
[2018-03-10] MEDS: MOXIFLOXACIN HCL 0.5% OPHTHALMIC 3 ML BOTTLE OU SCH ×3 (06:13→21:01)
[2018-03-10] MEDS: INSULIN (LEVEMIR) 100 UNITS/ML UNITS SQ SCH ×2 (06:13→21:01)
[2018-03-10] MEDS: metFORMIN HCL 500 MG TABLET (FP) PO SCH ×2 (06:13→16:59)
[2018-03-10] MEDS: INSULIN SLIDING SCALE (NOVOLOG) 1 VIAL SQ SCH ×4 (06:31→21:02)
[2018-03-10] MEDS: LEVOTHYROXINE NA 25 MCG TABLET (FP) PO SCH (06:32)
[2018-03-10] MEDS ORDERED: DEXTROSE 5%-WATER - 50 ML IVPB ONE (10:04)
[2018-03-10] MEDS ORDERED: cefTRIAXone SODIUM 1 GM VIAL ONE (10:04)
[2018-03-10] MEDS: FUROSEMIDE 20 MG TABLET (FP) PO SCH (10:09)
[2018-03-10] MEDS: LIDOCAINE 5% TOPICAL PATCH TP SCH (10:09)
[2018-03-10] MEDS: DEXAMETHASONE 4 MG TABLET (FP) PO SCH ×2 (10:09→21:00)
[2018-03-10] MEDS: LOSARTAN POTASSIUM 50 MG TABLET (FP) PO SCH (10:09)
[2018-03-10] MEDS: CEFTRIAXONE 1 GM in DEXTROSE 5%-WATER - 50 ML IVPB SCH (10:09)
[2018-03-10] MEDS: levETIRAcetam 500 MG TABLET (FP) PO SCH ×2 (10:09→21:00)
[2018-03-10] MEDS: PANTOPRAZOLE 40 MG TABLET (FP) PO SCH (10:09)
[2018-03-10] MEDS: NYSTATIN POWDER 100,000 UNITS/GM - 15 GM TOPICAL POWDER TP SCH ×2 (10:11→21:03)
[2018-03-10] MEDS: NYSTATIN 100,000 UNIT/GM TOPICAL CREAM 15 GM TUBE TP SCH ×2 (10:11→21:03)
[2018-03-10] MEDS ORDERED: ALBUTEROL SO4 2.5/IPRATROPIUM 0.5 INH SOL 3 ML VIAL.NEB. NEB PRN (11:18)
--- NOTE | 2018-03-10 13:46 | PN ---
Progress Note, Physician - Current Medication List Current Medications: Active Medications Acetaminophen (Tylenol -) 325 mg PO Q4H PRN PRN Reason: PAIN Last Admin: 03/10/18 02:13 Dose: 325 mg Albuterol/Ipratropium (Duoneb -) 1 amp NEB Q6H PRN PRN Reason: SHORTNESS OF BREATH Benzocaine/Menthol (Cepacol Lozenge -) 1 each MM PRN PRN PRN Reason: SORE THROAT Dexamethasone (Decadron -) 4 mg PO BID [facility] Last Admin: 03/10/18 10:09 Dose: 4 mg Furosemide (Lasix -) 20 mg PO DAILY [facility] Last Admin: 03/10/18 10:09 Dose: 20 mg Ceftriaxone Sodium 1 gm/ (Dextrose) 50 mls @ 100 mls/hr IVPB DAILY [facility]; Protocol Stop: 03/11/18 11:14 Last Admin: 03/10/18 10:09 Dose: 100 mls/hr Insulin Aspart (Novolog Vial Sliding Scale -) 1 vial SQ [facility]; Protocol Last Admin: 03/10/18 11:37 Dose: 9 units Insulin Detemir (Levemir Vial) 40 units SQ [facility] Insulin Detemir (Levemir Vial) 35 units SQ DAILY@0700 [facility] Last Admin: 03/10/18 06:13 Dose: 35 units Levetiracetam (Keppra -) 500 mg PO BID [facility] Last Admin: 03/10/18 10:09 Dose: 500 mg Levothyroxine Sodium (Synthroid -) 25 mcg PO 0700 [facility] Last Admin: 03/10/18 06:32 Dose: 25 mcg Lidocaine (Lidoderm Patch -) 1 patch TP DAILY [facility] Last Admin: 03/10/18 10:09 Dose: 1 patch Losartan Potassium (Cozaar -) 100 mg PO DAILY [facility] Last Admin: 03/10/18 10:09 Dose: 100 mg [facility] Last Admin: 03/10/18 06:13 Dose: 1,000 mg Miscellaneous (Lidoderm Patch Removal) 1 each MC DAILY@2200 [facility] Last Admin: 03/09/18 22:10 Dose: 1 each Moxifloxacin HCl (Vigamox 0.5% Eye Drops -) 1 drop OU TID [facility] Last Admin: 03/10/18 06:13 Dose: 1 drop Nystatin (Mycostatin Cream -) 1 applic TP BID [facility] Last Admin: 03/10/18 10:11 Dose: 1 applic Nystatin (Nystop Powder -) 1 applic TP BID [facility] Last Admin: 03/10/18 10:11 Dose: 1 applic Ondansetron HCl (Zofran -) 4 mg PO Q6H PRN PRN Reason: NAUSEA Pantoprazole Sodium (Protonix -) 40 mg PO DAILY [facility] Last Admin: 03/10/18 10:09 Dose: 40 mg - Objective Vital Signs: Vital Signs Temperature 98.5 F 03/10/18 10:00 Pulse Rate 98 H 03/10/18 10:00 Respiratory Rate 17 03/10/18 10:00 Blood Pressure 116/72 03/10/18 10:00 O2 Sat by Pulse Oximetry (%) 98 03/09/18 21:00 Labs: CBC, BMP 03/09/18 07:00 03/09/18 07:00 INR, PTT INR 1.12 (0.83-1.09) H 03/08/18 05:30 Problem List - Problems (1) GIB (gastrointestinal bleeding) Code(s): K92.2 - GASTROINTESTINAL HEMORRHAGE, UNSPECIFIED Qualifiers: Gastritis type: unspecified gastritis (2) Anemia Code(s): D64.9 - ANEMIA, UNSPECIFIED Qualifiers: Anemia type: unspecified type Qualified Code(s): D64.9 - Anemia, unspecified (3) Breast CA Code(s): C50.919 - MALIGNANT NEOPLASM OF UNSP SITE OF UNSPECIFIED FEMALE BREAST Qualifiers: Breast location: overlapping sites of breast Laterality: right (4) Diabetes Code(s): E11.9 - TYPE 2 DIABETES MELLITUS WITHOUT COMPLICATIONS Qualifiers: Diabetes mellitus type: type 2 Diabetes mellitus complication status: without complication (5) Vasogenic cerebral edema Code(s): G93.6 - CEREBRAL EDEMA (6) Hypertension Code(s): I10 - ESSENTIAL (PRIMARY) HYPERTENSION (7) Hypothyroidism Code(s): E03.9 - HYPOTHYROIDISM, UNSPECIFIED
[2018-03-10] MEDS ORDERED: PT OWN MED DRAWER 7, Y5N ONE (14:23)
[2018-03-10] MEDS ORDERED: INSULIN (NOVOLOG) ASPART 100 UNITS/ML 10ML VIAL ONE (20:44)
[2018-03-10] MEDS: LIDOCAINE PATCH REMOVAL MC SCH (21:10)
[2018-03-11] MEDS: INSULIN (LEVEMIR) 100 UNITS/ML UNITS SQ SCH ×2 (06:40→22:30)
[2018-03-11] MEDS: metFORMIN HCL 500 MG TABLET (FP) PO SCH ×2 (06:40→17:16)
[2018-03-11] MEDS: LEVOTHYROXINE NA 25 MCG TABLET (FP) PO SCH (06:40)
[2018-03-11] MEDS: MOXIFLOXACIN HCL 0.5% OPHTHALMIC 3 ML BOTTLE OU SCH ×3 (06:41→23:10)
[2018-03-11] MEDS: INSULIN SLIDING SCALE (NOVOLOG) 1 VIAL SQ SCH ×4 (06:41→23:11)
[2018-03-11] MEDS ORDERED: DEXTROSE 5%-WATER - 50 ML IVPB ONE (09:09)
[2018-03-11] MEDS ORDERED: cefTRIAXone SODIUM 1 GM VIAL ONE (09:09)
[2018-03-11] MEDS: levETIRAcetam 500 MG TABLET (FP) PO SCH ×2 (09:37→23:10)
[2018-03-11] MEDS: PANTOPRAZOLE 40 MG TABLET (FP) PO SCH (09:37)
[2018-03-11] MEDS: LOSARTAN POTASSIUM 50 MG TABLET (FP) PO SCH (09:37)
[2018-03-11] MEDS: DEXAMETHASONE 4 MG TABLET (FP) PO SCH ×2 (09:38→23:09)
[2018-03-11] MEDS: LIDOCAINE 5% TOPICAL PATCH TP SCH (09:38)
[2018-03-11] MEDS: FUROSEMIDE 20 MG TABLET (FP) PO SCH (09:38)
[2018-03-11] MEDS: CEFTRIAXONE 1 GM in DEXTROSE 5%-WATER - 50 ML IVPB SCH (09:38)
[2018-03-11] MEDS: NYSTATIN POWDER 100,000 UNITS/GM - 15 GM TOPICAL POWDER TP SCH ×2 (09:39→23:12)
[2018-03-11] MEDS: NYSTATIN 100,000 UNIT/GM TOPICAL CREAM 15 GM TUBE TP SCH (09:40)
--- NOTE | 2018-03-11 20:40 | PN ---
Progress Note, Physician History of Present Illness: No new complaints - Current Medication List Current Medications: Active Medications Acetaminophen (Tylenol -) 325 mg PO Q4H PRN PRN Reason: PAIN Last Admin: 03/10/18 02:13 Dose: 325 mg Albuterol/Ipratropium (Duoneb -) 1 amp NEB Q6H PRN PRN Reason: SHORTNESS OF BREATH Benzocaine/Menthol (Cepacol Lozenge -) 1 each MM PRN PRN PRN Reason: SORE THROAT Dexamethasone (Decadron -) 4 mg PO BID [facility] Last Admin: 03/11/18 09:38 Dose: 4 mg Furosemide (Lasix -) 20 mg PO DAILY [facility] Last Admin: 03/11/18 09:38 Dose: 20 mg Insulin Aspart (Novolog Vial Sliding Scale -) 1 vial SQ [facility]; Protocol Last Admin: 03/11/18 17:16 Dose: 4 units Insulin Detemir (Levemir Vial) 40 units SQ HS [facility] Last Admin: 03/10/18 21:01 Dose: 40 units Insulin Detemir (Levemir Vial) 35 units SQ DAILY@0700 [facility] Last Admin: 03/11/18 06:40 Dose: 35 units Levetiracetam (Keppra -) 500 mg PO BID [facility] Last Admin: 03/11/18 09:37 Dose: 500 mg Levothyroxine Sodium (Synthroid -) 25 mcg PO 0700 [facility] Last Admin: 03/11/18 06:40 Dose: 25 mcg Lidocaine (Lidoderm Patch -) 1 patch TP DAILY [facility] Last Admin: 03/11/18 09:38 Dose: 1 patch Losartan Potassium (Cozaar -) 100 mg PO DAILY [facility] Last Admin: 03/11/18 09:37 Dose: 100 mg Metformin HCl (Glucophage -) 1,000 mg PO BIDAC [facility] Last Admin: 03/11/18 17:16 Dose: 1,000 mg Miscellaneous (Lidoderm Patch Removal) 1 each MC DAILY@2200 [facility] Last Admin: 03/10/18 21:10 Dose: 1 each Moxifloxacin HCl (Vigamox 0.5% Eye Drops -) 1 drop OU TID [facility] Last Admin: 03/11/18 14:07 Dose: 1 drop Nystatin (Mycostatin Cream -) 1 applic TP BID [facility] Last Admin: 03/11/18 09:40 Dose: 1 applic Nystatin (Nystop Powder -) 1 applic TP BID [facility] Last Admin: 03/11/18 09:39 Dose: 1 applic Ondansetron HCl (Zofran -) 4 mg PO Q6H PRN PRN Reason: NAUSEA Pantoprazole Sodium (Protonix -) 40 mg PO DAILY [facility] Last Admin: 03/11/18 09:37 Dose: 40 mg - Objective Vital Signs: Vital Signs Temperature 98.2 F 03/11/18 18:39 Pulse Rate 90 03/11/18 18:39 Respiratory Rate 18 03/11/18 18:39 Blood Pressure 113/60 03/11/18 18:39 O2 Sat by Pulse Oximetry (%) 97 03/11/18 09:00 Neck: Yes: WNL, Supple Cardiovascular: Yes: WNL, Regular Rate and Rhythm Respiratory: Yes: WNL, Regular, CTA Bilaterally Gastrointestinal: Yes: WNL, Normal Bowel Sounds, Soft Labs: CBC, BMP 03/09/18 07:00 03/09/18 07:00 INR, PTT INR 1.12 (0.83-1.09) H 03/08/18 05:30 Problem List - Problems (1) GIB (gastrointestinal bleeding) Assessment/Plan: EGD showed linear ulcer in stomach and reflux esophagitis H/H has remained stable Cont protonix Cont to monitor DC planning for am Code(s): K92.2 - GASTROINTESTINAL HEMORRHAGE, UNSPECIFIED Qualifiers: Gastritis type: unspecified gastritis (2) Anemia Assessment/Plan: ?Multifactorial Due to acute blood loss vs chronic dz Code(s): D64.9 - ANEMIA, UNSPECIFIED Qualifiers: Anemia type: unspecified type Qualified Code(s): D64.9 - Anemia, unspecified (3) Diabetes Assessment/Plan: Poor glycemic control Insulin has been adjusted Levemir has been added Code(s): E11.9 - TYPE 2 DIABETES MELLITUS WITHOUT COMPLICATIONS Qualifiers: Diabetes mellitus type: type 2 Diabetes mellitus complication status: without complication (4) Breast CA Assessment/Plan: Metastatic dz to liver/bonebrain As per onco Code(s): C50.919 - MALIGNANT NEOPLASM OF UNSP SITE OF UNSPECIFIED FEMALE BREAST Qualifiers: Breast location: overlapping sites of breast Laterality: right (5) Vasogenic cerebral edema Code(s): G93.6 - CEREBRAL EDEMA (6) Hypertension Code(s): I10 - ESSENTIAL (PRIMARY) HYPERTENSION (7) Hypothyroidism Code(s): E03.9 - HYPOTHYROIDISM, UNSPECIFIED
[2018-03-11] MEDS: LIDOCAINE PATCH REMOVAL MC SCH (23:10)
[2018-03-12] MEDS ORDERED: NYSTATIN/TRIAMCINOLONE TOPICAL OINTMENT 15 GM TUBE TP SCH (01:30)
[2018-03-12] MEDS: NYSTATIN 100,000 UNIT/GM TOPICAL CREAM 15 GM TUBE TP SCH (01:34)
[2018-03-12] MEDS: NYSTATIN 100000 UNIT/GM TOPICAL OINTMENT 15 GM TUBE TP SCH ×2 (02:30→11:18)
[2018-03-12] MEDS ORDERED: PT OWN MED DRAWER 7, Y5N ONE ×4 (06:05→15:43)
[2018-03-12] MEDS: metFORMIN HCL 500 MG TABLET (FP) PO SCH ×2 (06:41→16:45)
[2018-03-12] MEDS: MOXIFLOXACIN HCL 0.5% OPHTHALMIC 3 ML BOTTLE OU SCH ×2 (06:42→14:11)
[2018-03-12] MEDS: INSULIN SLIDING SCALE (NOVOLOG) 1 VIAL SQ SCH ×3 (06:43→16:41)
[2018-03-12] MEDS ORDERED: LEVOTHYROXINE NA 50 MCG TABLET (FP) PO SCH (07:00)
[2018-03-12] MEDS ORDERED: INSULIN (LEVEMIR) 100 UNITS/ML UNITS SQ SCH (07:00)
[2018-03-12] MEDS: LIDOCAINE 5% TOPICAL PATCH TP SCH (11:16)
[2018-03-12] MEDS: DEXAMETHASONE 4 MG TABLET (FP) PO SCH (11:17)
[2018-03-12] MEDS: LOSARTAN POTASSIUM 50 MG TABLET (FP) PO SCH (11:17)
[2018-03-12] MEDS: PANTOPRAZOLE 40 MG TABLET (FP) PO SCH (11:17)
[2018-03-12] MEDS: levETIRAcetam 500 MG TABLET (FP) PO SCH (11:17)
[2018-03-12] MEDS: FUROSEMIDE 20 MG TABLET (FP) PO SCH (11:17)
[2018-03-12] MEDS: NYSTATIN POWDER 100,000 UNITS/GM - 15 GM TOPICAL POWDER TP SCH (11:18)
[2018-03-12 14:53] VITALS: BP 148/89; PULSE 101; TEMP 99.8
== END 2018-03-12 18:07 | DRG 391 ==
LOC: JER 16:23 → JERBED 17:44 → JICU 03-07 00:51 → J5S 03-08 21:23
PROVIDERS: ADMIT Internal Medicine; ATTEND Internal Medicine
PROC: 0DJ08ZZ Inspection of Upper Intestinal Tract, Via Natural or Artificial Opening Endoscopic (ICD-10-PCS; principal; 2018-03-07 15:00)
DX: K20.9 Esophagitis, unspecified (principal); G93.6 Cerebral edema; K92.2 Gastrointestinal hemorrhage, unspecified; C79.31 Secondary malignant neoplasm of brain; E87.2 Acidosis; C78.7 Secondary malignant neoplasm of liver and intrahepatic bile duct; D62 Acute posthemorrhagic anemia; C79.51 Secondary malignant neoplasm of bone; C50.919 Malignant neoplasm of unspecified site of unspecified female breast; I10 Essential (primary) hypertension; D50.0 Iron deficiency anemia secondary to blood loss (chronic); E03.9 Hypothyroidism, unspecified; K25.9 Gastric ulcer, unspecified as acute or chronic, without hemorrhage or perforation; E11.65 Type 2 diabetes mellitus with hyperglycemia; E11.40 Type 2 diabetes mellitus with diabetic neuropathy, unspecified; K59.00 Constipation, unspecified; K44.9 Diaphragmatic hernia without obstruction or gangrene
CPT/HCPCS: 36415; 71045-TC-FY; 74176-TC; 80048; 80053; 81003; 81015; 82272; 82947; 82962; 83605; 83690; 83735; 84100; 84443; 84484; 85025; 85027; 85610; 85730; 86850; 86900; 86901; 87086; 87186; 90688; 93005; 93010; 94640; 99285-25; G0008; J7030

== ENCOUNTER 2018-04-29 13:14 | Inpatient (IN) | payer OTHER ==
[2018-04-29] MEDS ORDERED: ALBUTEROL SO4 0.083% IH SOL 2.5 MG/3 ML VIAL.NEB. NEB ONE ×2 (13:35→14:27)
--- NOTE | 2018-04-29 13:41 | PDOC ---
Attending Attestation - Resident Resident Name: Earnestine Elizalde - ED Attending Attestation I have performed the following: I have examined & evaluated the patient, The case was reviewed & discussed with the resident, I agree w/resident's findings & plan, Exceptions are as noted - HPI HPI: 04/29/18 17:36 57 year old female with a significant past medical history of breast cancer with metastatic disease to the brain with treatment with stereotactic RT, right parietal craniotomy for brain tumor/cerebral edema (2014), diabetes mellitus, hypothyroidism, vasogenic cerebral edema, hypertension, CHF, COPD (2-3L O2 at home), and UTIs, who presents to the ED via ems for one week of SOB and recent development of wheezing. She also reports a dry cough. She states she does not lie flat. The patient denies any fevers, chills, or diarrhea. She denies any chest pain, dizziness, abdominal pain, or lightheadedness. She denies any dysuria, frequency, urgency, hesitancy, or hematuria. Allergies: Iodinated Contrast - Oral and IV dye, oxycodone HCl. Social History: None reported. Surgical History: Right parietal craniotomy in 2014 for tumor. PCP: Dr. Bakari Pool. - Physicial Exam PE: 04/29/18 14:04 GENERAL: The patient is awake, alert, and fully oriented HEAD: Normocephalic, atraumatic. EYES: extraocular movements intact, sclera anicteric, conjunctiva clear. ENT: Normal voice, Moist mucous membranes. NECK: Normal range of motion, supple LUNGS: scattered expiratory wheezing b/l, speaking in brief segments HEART: Regular rate and rhythm, normal S1 and S2 without murmur, rub or gallop. ABDOMEN: Soft, nontender, No guarding, no rebound. No CVA tenderness EXTREMITIES: Normal range of motion, trace b/l pitting edema. NEUROLOGICAL: No facial assymetry, Normal speech, PSYCH: Normal mood, normal affect. SKIN: Warm, Dry, normal turgor, - Critical Care Time Total Critical Care Time: 35 Critical Care Statement: The care of this patient involved high complexity decision making to prevent further life threatening deterioration of the patient 's condition and/or to evaluate & treat vital organ system(s) failure or risk of failure. - Medical Decision Making 04/29/18 13:39 57y F hx of breast ca with brain mets s/p craniotomy, IDDM, hypothyroiidsm, chf , copd (normally on 2-3L NC), presents with omplaint of SOB x 3 days. Pt has been using her nebs, but SOB and nonproductive cough for the past week, worsening the past day or so associated with mild chest pain. denies any headache, dizziness, palpitations, abd pain, diarrhea/constipation, leg swelling , orthopnea, n/v. Differential for the patient's symptoms includes pna, copd exacerbation, chf, cnosider acs will obtain blood work, cultures, cxr will give nebs, steroids will reassess 04/29/18 15:12 CXR CW INFILTRATEINVE CHANGES AND CONGESTION will start bipap chf vs pna 04/29/18 17:36 tps HR improved to 102 The patient's bnp only 300s - suspect possible b/l pna over chf pts bp borderline (90s/70s) - will give fluids and reassess her respiratory status will admit for further management Heart Score/ECG Review - ECG Impressions Comment:: 04/29/18 15:49 Twelve-lead EKG was performed and reviewed by me. There is normal sinus rhythm with a rate of 115. sinus tachycardia
--- NOTE | 2018-04-29 13:48 | PDOC ---
History of Present Illness <Vern Pate - Last Filed: 04/29/18 15:15> - History of Present Illness Initial Comments: 04/29/18 13:48 Patient is a 57 year old female with past medical history of Breast CA with liver, bone and brain metastases s/p R parietal craniotomy and stereotactic RT, vasogenic cerebral edema, IDDM, HTN, Hypothyroidism, CHF (O2-dependent, 2-3 lpm ) presented with worsening dyspnea since 3 days ago. Patient reported waking up this morning, feeling more tight and short of breath. She had been using her nebs, but provided minimal relief. This was accompanied by some chest pain. Denies any headache, dizziness, runny nose, changes in vision, nausea, vomiting , palpitations, abdominal pain, diarrhea, constipation or urinary symptoms. <Earnestine Elizalde - Last Filed: 05/02/18 09:46> - General Chief Complaint: Shortness of Breath Stated Complaint: SHORTNESS OF BREATH Time Seen by Provider: 04/29/18 13:18 Past History <Vern Pate - Last Filed: 04/29/18 15:15> - Past Medical History Anemia: Yes Asthma: No Cancer: Yes (BREAST/BRAIN) Cardiac Disorders: No CVA: No COPD: No CHF: No Dementia: No Diabetes: Yes GI Disorders: No Disorders: No HTN: Yes Hypercholesterolemia: No Liver Disease: No Seizures: Yes Thyroid Disease: No - Surgical History Abdominal Surgery: No Appendectomy: No Cardiac Surgery: No Cholecystectomy: No Lung Surgery: No Neurologic Surgery: Yes (RIGHT PARIETAL CRANIECTOMY 2015 FOR TUMOR) Orthopedic Surgery: No - Immunization History Immunization Up to Date: Yes - Suicide/Smoking/Psychosocial Hx Smoking Status: No Smoking History: Unknown if ever smoked Have you smoked in the past 12 months: No Number of Cigarettes Smoked Daily: 0 Information on smoking cessation initiated: No Hx Alcohol Use: No Drug/Substance Use Hx: No Substance Use Type: None Hx Substance Use Treatment: No <Earnestine Elizalde - Last Filed: 05/02/18 09:46> - Past Medical History Allergies/Adverse Reactions: Allergies Allergy/AdvReac Type Severity Reaction Status Date / Time Iodinated Contrast- Oral and Allergy Verified 04/29/18 13:27 IV Dye oxycodone HCl [From Percocet] Allergy Verified 04/29/18 13:27 Home Medications: Ambulatory Orders Acetaminophen [Pain Relief] 650 mg PO Q4HWA PRN 03/06/18 Dexamethasone [Decadron] 4 mg PO BID 03/06/18 Docusate Sodium [Colace] 300 mg PO DAILY 03/06/18 Furosemide [Lasix] 20 mg PO DAILY 03/06/18 Insulin (LOG) Aspart [NovoLOG -] 0 units SQ TID 03/06/18 Insulin Aspart [Novolog Flexpen] 0 unit SQ HS 03/06/18 Insulin Detemir [Levemir Flextouch] 38 unit SQ DAILY 03/06/18 Levetiracetam 500 mg PO BID 03/06/18 Levothyroxine [Synthroid -] 25 mcg PO DAILY 03/06/18 Lidocaine 5% Patch [Lidoderm -] 1 patch TP DAILY 03/06/18 Losartan Potassium [Cozaar] 100 mg PO DAILY 03/06/18 Metformin HCl [Glucophage] 1,000 mg PO BID 03/06/18 Nystatin Cream [Mycostatin Cream -] 1 applic TP BID 03/06/18 Nystatin Powder [Nystop Powder -] 100,000 unit TP BID 03/06/18 Ondansetron [Zofran -] 4 mg PO QID PRN 03/06/18 Pantoprazole Sodium 40 mg PO DAILY 03/06/18 Polyethylene Glycol 3350 [Miralax 119 gm Btl -] 17 gm PO TID 03/06/18 Potassium Chloride [K-Dur -] 20 meq PO DAILY 03/06/18 Insulin (Levemir) [Levemir Vial] 35 units SQ BID@0700,2200 #1 units 03/12/18 Levothyroxine [Synthroid -] 50 mcg PO DAILY@0700 #30 tablet 03/12/18 Menthol [Bengay Ultra Strength] 1 each TP PRN 04/29/18 Mirtazapine [Remeron -] 15 mg PO DAILY 04/29/18 *Physical Exam - Vital Signs Last Vital Signs Temp Pulse Resp BP Pulse Ox 99.1 F 118 H 26 H 100/63 96 04/29/18 13:25 04/29/18 13:33 04/29/18 13:25 04/29/18 13:25 04/29/18 13:33 <Vern Pate - Last Filed: 04/29/18 15:15> - Vital Signs Last Vital Signs Temp Pulse Resp BP Pulse Ox 99.1 F 118 H 26 H 100/63 96 04/29/18 13:25 04/29/18 13:33 04/29/18 13:25 04/29/18 13:25 04/29/18 13:33 - Physical Exam Comments: General: awake, alert, oriented, speaks in phrases, on 3L NC Head: no signs of head trauma HEENT: PERRLA, EOMI, sclerae anicteric, no nasal discharge, dry mucous membranes Neck:soft, supple, no JVD, Lungs:+wheezing and +crackles bilaterally Heart:tachycardic, regular rhythm, normal S1/S2, no m,r,g Abdomen:soft, nontender, nondistended, NABS Ext: +2 pulses, +1 pitting edema, no cyanosis or clubbing <Earnestine Elizalde - Last Filed: 05/02/18 09:46> Moderate Sedation - Procedure Monitoring Vital Signs: Procedure Monitoring Vital Signs Temperature 99.1 F 04/29/18 13:25 Pulse Rate 118 H 04/29/18 13:33 Respiratory Rate 26 H 04/29/18 13:25 Blood Pressure 100/63 04/29/18 13:25 O2 Sat by Pulse Oximetry (%) 96 04/29/18 13:33 <Vern Pate - Last Filed: 04/29/18 15:15> - Procedure Monitoring Vital Signs: Procedure Monitoring Vital Signs Temperature 99.1 F 04/29/18 13:25 Pulse Rate 118 H 04/29/18 13:33 Respiratory Rate 26 H 04/29/18 13:25 Blood Pressure 100/63 04/29/18 13:25 O2 Sat by Pulse Oximetry (%) 96 04/29/18 13:33 <Earnestine Elizalde - Last Filed: 05/02/18 09:46> ED Treatment Course - Medications Given in the ED: ED Medications Discontinued Medications Generic Name Dose Route Start Last Admin Trade Name Freq PRN Reason Stop Dose Admin Acetaminophen 1,000 mg 04/29/18 14:02 04/29/18 14:39 Ofirmev Injection - IVPB 04/29/18 14:03 1,000 mg ONCE ONE Administration Albuterol Sulfate 1 amp 04/29/18 13:35 04/29/18 14:39 Ventolin 0.083% Nebulizer Soln - NEB 04/29/18 13:36 1 amp ONCE ONE Administration Methylprednisolone Sodium Succinate 125 mg 04/29/18 14:01 04/29/18 14:39 Solu-Medrol - IVPUSH 04/29/18 14:02 125 mg ONCE ONE Administration <Vern Pate - Last Filed: 04/29/18 15:15> - LABORATORY CBC & Chemistry Diagram: 05/02/18 05:30 05/02/18 05:30 - RADIOLOGY Radiology Studies Ordered: Category Date Time Status CHEST X-RAY PORTABLE* [RAD] Stat Radiology 04/29/18 13:30 Ordered <Earnestine Elizalde - Last Filed: 05/02/18 09:46> Medical Decision Making - Medical Decision Making 04/29/18 13:59 Patient is a 57 year old female with past medical history of Breast CA with liver, bone and brain metastases s/p R parietal craniotomy and stereotactic RT, vasogenic cerebral edema, IDDM, HTN, Hypothyroidism, CHF (O2-dependent, 2-3 lpm ) presented with worsening dyspnea since 3 days ago. DDx include but not limited to sepsis, PNA, CHF exacerbation, asthma, COPD, ACS , UTI, pleural effusion CBC, CMP VBG BNP CXR EKG Coags UA/UCx Blood Cx Flu swab IV tylenol 1g Albuterol neb IV solu-medrol 125 mg 04/29/18 15:06 CXR - new congestive changes with possible superimposed infiltrate on the right will place patient on Bipap 04/29/18 16:23 IV vanc/zosyn given 04/29/18 17:41 Patient reports improvement of breathing on bipap She is asking for food. IV NS 500 bolus given Admit to Dr. Galindo's service <Earnestine Elizalde - Last Filed: 05/02/18 09:46> *DC/Admit/Observation/Transfer <Vern Pate - Last Filed: 04/29/18 15:15> - Discharge Dispostion Decision to Admit order: Yes <Earnestine Elizalde - Last Filed: 05/02/18 09:46> Diagnosis at time of Disposition: Pneumonia Qualifiers: Pneumonia type: due to unspecified organism Laterality: right Lung location: lower lobe of lung Qualified Code(s): J18.1 - Lobar pneumonia, unspecified organism - Discharge Dispostion Condition at time of disposition: Stable
[2018-04-29] MEDS ORDERED: methylPREDNISolone NA SUCC 125 MG/2 ML VIAL IVPUSH ONE (14:01)
[2018-04-29] MEDS ORDERED: ACETAMINOPHEN 1000 MG/100 ML VIAL (NON FORMULARY) IVPB ONE (14:02)
[2018-04-29] MEDS ORDERED: ACETAMINOPHEN INJECTION 100 ML IVPB ONE (14:27)
[2018-04-29] MEDS ORDERED: methylPREDNISolone NA SUCC 125 MG/2 ML VIAL ONE (14:27)
[2018-04-29] MEDS ORDERED: PIPERACILLIN/TAZOB 4.5 GM 4.5 GM in DEXTROSE 5%-WATER 100 ML IVPB ONE (15:16)
[2018-04-29] MEDS ORDERED: VANCOMYCIN 1,000 MG in DEXTROSE 5%-WATER - 250 ML IVPB ONE (15:16)
[2018-04-29 15:43] LABS: VENOUS PC02 40.9 mmHg (38-52); VENOUS PH 7.39 (7.32-7.42); VENOUS PO2 47.8 mmHg (28-48)
[2018-04-29 15:48] LABS: INR 1.24 (0.83-1.09); PROTHROMBIN TIME (PATIENT) 14.7 SEC (9.7-13.0)
[2018-04-29 16:19] LABS: BASO % 0.4 % (0-2.0); EOS % 0.4 % (0-4.5); HEMATOCRIT 30.8 % (32.4-45.2); HEMOGLOBIN 9.7 GM/dL (10.7-15.3); LYMPH % 7.1 % (8-40); MCHC 31.5 g/dl (32.0-36.0); MEAN CELL VOLUME 73.1 fl (80-96); MEAN PLT VOLUME 8.1 fl (7.5-11.1); MONO % 4.9 % (3.8-10.2); NEUT % 87.2 % (42.8-82.8); PLATELET COUNT 438 K/MM3 (134-434); RBC 4.22 M/mm3 (3.60-5.2); RDW 21.1 % (11.6-15.6); WHITE BLOOD COUNT 10.2 K/mm3 (4.0-10.0)
[2018-04-29 16:35] LABS: ALBUMIN 2.5 g/dl (3.4-5.0); ALK PHOS 138 U/L (45-117); ANION GAP 14 MMOL/L (8-16); BILIRUBIN,TOTAL 0.3 mg/dL (0.2-1); BLOOD UREA NITROGEN 24 mg/dL (7-18); CALCIUM 8.5 mg/dL (8.5-10.1); CHLORIDE 108 mmol/L (98-107); CO2 22 mmol/L (21-32); CREATININE 0.8 mg/dL (0.55-1.3); GLUCOSE,RANDOM 59 mg/dL (74-106); POTASSIUM 4.2 mmol/L (3.5-5.1); SGOT/AST 144 U/L (15-37); SGPT/ALT 46 U/L (13-61); SODIUM 144 mmol/L (136-145); TOT PROT 6.2 g/dl (6.4-8.2)
[2018-04-29] MEDS ORDERED: PIPERACILLIN/TAZOB 4.5 GM 4.5 GM/100 ML BAG IVPB ONE (16:41)
[2018-04-29 17:15] LABS: ANISOCYTOSIS 2+
--- NOTE | 2018-04-29 17:15 | EKG ---
Test Reason : Blood Pressure : / mmHG Vent. Rate : 115 BPM Atrial Rate : 115 BPM P-R Int : 146 ms QRS Dur : 082 ms QT Int : 340 ms P-R-T Axes : 039 030 037 degrees QTc Int : 470 ms SINUS TACHYCARDIA POSSIBLE LEFT ATRIAL ENLARGEMENT BORDERLINE ECG WHEN COMPARED WITH ECG OF 06-MAR-2018 18:05, NO SIGNIFICANT CHANGE WAS FOUND Confirmed by MEGAN FRANKEL MD ([id number]) on 04/29/2018 5:14:55 PM Referred By: Confirmed By:MEGAN FRANKEL MD
[2018-04-29 17:16] LABS: OVALOCYTE 1+; PLATELET ESTIMATE ADEQUATE
[2018-04-29] MEDS ORDERED: SODIUM CHLORIDE 500 ML IV STA (17:17)
[2018-04-29] MEDS ORDERED: VANCOMYCIN 1 GRAM (PRE-DOCKED) 1,000 MG/250 ML BAG IVPB ONE (17:23)
[2018-04-29] MEDS ORDERED: PATIENT'S OWN MEDICATION (NON-FORMULARY) (Acetaminophen [Pain Relief] 650 MG) PO PRN (21:48)
[2018-04-29] MEDS ORDERED: ACETAMINOPHEN 325 MG TABLET (FP) PO PRN (21:52)
[2018-04-29] MEDS ORDERED: ACETAMINOPHEN 325 MG TABLET (FP) ONE (21:56)
[2018-04-30] MEDS: SODIUM CHLORIDE 0.45% 1,000 ML IV SCH ×2 (03:20→18:10)
[2018-04-30 05:48] LABS: BASO % 0.5 % (0-2.0); HEMOGLOBIN 8.6 GM/dL (10.7-15.3); LYMPH % 8.5 % (8-40); MCH 21.7 pg (25.7-33.7); MCHC 29.8 g/dl (32.0-36.0); MEAN CELL VOLUME 72.8 fl (80-96); MEAN PLT VOLUME 7.5 fl (7.5-11.1); MONO % 4.7 % (3.8-10.2); NEUT % 86.3 % (42.8-82.8); PLATELET COUNT 385 K/MM3 (134-434); RBC 3.99 M/mm3 (3.60-5.2); WHITE BLOOD COUNT 11.6 K/mm3 (4.0-10.0)
[2018-04-30] MEDS ORDERED: metFORMIN HCL 500 MG TABLET (FP) ONE (06:25)
[2018-04-30] MEDS ORDERED: INSULIN (LEVEMIR) 100 UNITS/ML UNITS SQ ONE (06:28)
[2018-04-30 06:36] LABS: ALBUMIN 2.3 g/dl (3.4-5.0); ALK PHOS 128 U/L (45-117); ANION GAP 10 MMOL/L (8-16); BILIRUBIN,TOTAL 0.3 mg/dL (0.2-1); BLOOD UREA NITROGEN 22 mg/dL (7-18); CALCIUM 8.3 mg/dL (8.5-10.1); CHLORIDE 108 mmol/L (98-107); CO2 24 mmol/L (21-32); CREATININE 0.6 mg/dL (0.55-1.3); GLUCOSE,RANDOM 94 mg/dL (74-106); POTASSIUM 3.8 mmol/L (3.5-5.1); SGOT/AST 170 U/L (15-37); SGPT/ALT 45 U/L (13-61); SODIUM 142 mmol/L (136-145); TOT PROT 5.9 g/dl (6.4-8.2)
[2018-04-30] MEDS: POLYETHYLENE GLYCOL 3350 119 GM BTL PO SCH ×3 (06:42→23:40)
[2018-04-30] MEDS: metFORMIN HCL 500 MG TABLET (FP) PO SCH ×2 (06:43→18:10)
[2018-04-30] MEDS: INSULIN (LEVEMIR) 100 UNITS/ML UNITS SQ SCH ×2 (06:43→23:52)
[2018-04-30] MEDS: INSULIN SLIDING SCALE (NOVOLOG) 1 VIAL SQ SCH ×4 (06:43→23:51)
[2018-04-30] MEDS: LEVOTHYROXINE NA 50 MCG TABLET (FP) PO SCH (06:44)
[2018-04-30] MEDS ORDERED: ALBUTEROL SO4 2.5/IPRATROPIUM 0.5 INH SOL 3 ML VIAL.NEB. NEB ONE ×3 (08:17→21:28)
[2018-04-30] MEDS: ALBUTEROL SO4 2.5/IPRATROPIUM 0.5 INH SOL 3 ML VIAL.NEB. NEB PRN ×4 (08:27→21:29)
[2018-04-30] MEDS: DEXAMETHASONE 4 MG TABLET (FP) PO SCH ×2 (09:59→23:40)
[2018-04-30] MEDS: levETIRAcetam 500 MG TABLET (FP) PO SCH ×2 (10:00→23:40)
[2018-04-30] MEDS ORDERED: LIDOCAINE 5% TOPICAL PATCH TP SCH (10:00)
[2018-04-30] MEDS ORDERED: PANTOPRAZOLE 40 MG TABLET (FP) PO SCH (10:00)
[2018-04-30] MEDS ORDERED: LOSARTAN POTASSIUM 50 MG TABLET (FP) PO SCH (10:00)
[2018-04-30] MEDS ORDERED: DOCUSATE SODIUM 100 MG CAPSULE (FP) PO SCH (10:00)
[2018-04-30] MEDS ORDERED: POTASSIUM CHLORIDE TABS 20 MEQ TABLET.ER (FP) PO SCH (10:00)
[2018-04-30] MEDS ORDERED: HEPARIN NA (PORCINE) 5,000 UNITS/ML 1ML VIAL SQ SCH (10:00)
--- NOTE | 2018-04-30 11:36 | CONSULT ---
Consultation: REQUESTING PROVIDER: Dr. Galindo CONSULT REQUEST FOR HEMATOLOGY/ONCOLOGY: We have been asked to medically evaluate this patient for Breast cancer. HISTORY OF PRESENT ILLNESS: Patient is a 57 year old female with a PMHx of Breast cancer with liver/bone/ brain mets s/p Right parietal craniotomy and stetereotactic RT, vasogenic cerebral edema, IDDMIII, HTN, HYpothyroidism, Diastolic CHF, COPD (dependent on 02) who was BIBEMS and presented to the hospital for worsening shortness of breath and wheezing. Patient reports in the last two days her wheezing was getting worse and last night she had difficulty breathing associated with a dry cough. On my evaluation, patient reports wheezing and was unable to give a full history as she was uncomfortable. I elevated the head of the bed with some relief of symptoms. Patient was placed on BIPAP overnight and was given Duo-Nebs. Otherwise, patient denies any fever, chills, nausea, vomiting, abdominal pain, chest pain, diarrhea, dysuria, hematuria, urgency, melena, hematochezia, hematemesis. 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 [employer] Born in [facility] Family Hx: Mother- HTN Allergies: Iodine contrasr, Oral and IV Dye, Oxycodone REVIEW OF SYSTEMS: CONSTITUTIONAL: Absent: fever, chills, diaphoresis, generalized weakness, malaise, loss of appetite, weight change HEENT: Absent: rhinorrhea, nasal congestion, throat pain, throat swelling, difficulty swallowing, mouth swelling, ear pain, eye pain, visual changes CARDIOVASCULAR: Absent: chest pain, syncope, palpitations, irregular heart rate, lightheadedness , peripheral edema RESPIRATORY: cough, shortness of breath, dyspnea with exertion Absent: orthopnea, wheezing, stridor, hemoptysis GASTROINTESTINAL: Absent: abdominal pain, abdominal distension, nausea, vomiting, diarrhea, constipation, melena, hematochezia GENITOURINARY: Absent: dysuria, frequency, urgency, hesitancy, hematuria, flank pain, genital pain MUSCULOSKELETAL: Absent: myalgia, arthralgia, joint swelling, back pain, neck pain SKIN: Absent: rash, itching, pallor HEMATOLOGIC/IMMUNOLOGIC: Absent: easy bleeding, easy bruising, lymphadenopathy, frequent infections ENDOCRINE: Absent: unexplained weight gain, unexplained weight loss, heat intolerance, cold intolerance NEUROLOGIC: Absent: headache, focal weakness or paresthesias, dizziness, unsteady gait, seizure, mental status changes, bladder or bowel incontinence PSYCHIATRIC: Absent: anxiety, depression, suicidal or homicidal ideation, hallucinations. PHYSICAL EXAMINATION Vital Signs Temperature 97.8 F 04/29/18 23:00 Pulse Rate 99 H 04/30/18 08:32 Respiratory Rate 21 H 04/30/18 08:32 Blood Pressure 155/91 04/30/18 08:32 O2 Sat by Pulse Oximetry (%) 100 04/30/18 08:32 GENERAL: Drowsy, irritable, in mild respiratory distress HEAD: Normal with no signs of trauma. EYES: PERRL, sclera anicteric, conjunctiva clear. ENT: Dry mucous membranes. No oral thrush NECK: (-) lymphadenopathy, JVD, or masses. LUNGS: On 5L NC, wheezing and crackles throughout lung bases bilaterally with mild respiratory distress HEART: Tachycardic with regular rhythm, normal S1 and S2 BREAST: No masses, retraction, or nipple discharge. (+) right breast skin lesion at the 3 oclock with no erythema, redness or tenderness. ABDOMEN: Soft,obese, mildly distended, nontender, normoactive bowel sounds, no guarding, no rebound, no masses. EXTREMITIES: 1+ pitting edema bilaterally NEUROLOGICAL: Cranial nerves II-XII intact. Normal speech. PSYCHIATRIC: Cooperative. Good eye contact. Appropriate mood and affect. SKIN: Warm, dry, normal turgor, no rashes or lesions noted. Laboratory Results - last 24 hr 04/29/18 04/29/18 04/29/18 13:14 13:14 14:24 WBC 10.2 H RBC 4.22 Hgb 9.7 L Hct 30.8 L MCV 73.1 L MCH 23.0 L MCHC 31.5 L RDW 21.1 H Plt Count 438 H D MPV 8.1 Absolute Neuts (auto) 8.9 H Neutrophils % 87.2 H Neutrophils % (Manual) 80.0 Band Neutrophils % 2.0 Lymphocytes % 7.1 L Lymphocytes % (Manual) 9.0 D Monocytes % 4.9 Monocytes % (Manual) 6 Eosinophils % 0.4 D Eosinophils % (Manual) 1.0 D Basophils % 0.4 D Basophils % (Manual) 0.0 Myelocytes % (Man) 1 Nucleated RBC % 1 H Metamyelocytes 1 D Hypochromia 1+ Platelet Estimate Adequate Anisocytosis 2+ Ovalocytes 1+ PT with INR INR VBG pH 7.39 POC VBG pCO2 40.9 POC VBG pO2 47.8 D Mixed VBG HCO3 24.2 Sodium 144 Potassium 4.2 Chloride 108 H Carbon Dioxide 22 Anion Gap 14 BUN 24 H Creatinine 0.8 Creat Clearance w eGFR > 60 POC Glucometer Random Glucose 59 L Calcium 8.5 Total Bilirubin 0.3 AST 144 H ALT 46 Alkaline Phosphatase 138 H Creatine Kinase 119 Troponin I < 0.02 B-Natriuretic Peptide Total Protein 6.2 L Albumin 2.5 L Influenza A (Rapid) Influenza B (Rapid) Active Medications Generic Name Dose Route Start Last Admin Trade Name Freq PRN Reason Stop Dose Admin Acetaminophen 650 mg 04/29/18 21:52 04/29/18 22:02 Tylenol - PO 650 mg Q6H PRN Administration Fever Or Pain Albuterol/Ipratropium 1 amp 04/30/18 03:03 04/30/18 08:27 Duoneb - NEB 1 amp Q6H PRN Administration SHORTNESS OF BREATH Dexamethasone 4 mg 04/30/18 10:00 04/30/18 09:59 Decadron - PO 4 mg BID JD Administration Docusate Sodium 300 mg 04/30/18 10:00 04/30/18 09:58 Colace - PO 300 mg DAILY JD Administration Heparin Sodium (Porcine) 5,000 unit 04/30/18 10:00 04/30/18 09:59 Heparin - SQ 5,000 unit BID JD Administration Levofloxacin 500 mg in 100 mls @ 100 mls/hr 04/30/18 10:00 04/30/18 10:05 Levaquin 500 Mg Premixed Ivpb - IVPB 100 mls/hr DAILY JD Administration Protocol Sodium Chloride 1,000 mls @ 75 mls/hr 04/30/18 03:15 04/30/18 03:20 1/2 Normal Saline IV 75 mls/hr ASDIR JD Administration Insulin Aspart 1 vial 04/30/18 07:00 04/30/18 06:43 Novolog Vial Sliding Scale - SQ Not Given ACHS JD Protocol Insulin Detemir 35 units 04/30/18 07:00 04/30/18 06:43 Levemir Vial SQ 35 units BID@0700,2200 JD Administration Levetiracetam 500 mg 04/30/18 10:00 04/30/18 10:00 Keppra - PO 500 mg BID JD Administration Levothyroxine Sodium 50 mcg 04/30/18 07:00 04/30/18 06:44 Synthroid - PO 50 mcg DAILY@0700 JD Administration Lidocaine 1 patch 04/30/18 10:00 04/30/18 10:02 Lidoderm Patch - TP 1 patch DAILY JD Administration Losartan Potassium 100 mg 04/30/18 10:00 04/30/18 09:59 Cozaar - PO 100 mg DAILY JD Administration Metformin HCl 1,000 mg 04/30/18 07:00 04/30/18 06:43 Glucophage - PO 1,000 mg BIDAC JD Administration Mirtazapine 15 mg 04/30/18 22:00 Remeron - PO HS JD Miscellaneous 1 each 04/30/18 22:00 Lidoderm Patch Removal MC DAILY@2200 JD Pantoprazole Sodium 40 mg 04/30/18 10:00 04/30/18 10:00 Protonix - PO 40 mg DAILY JD Administration Polyethylene Glycol 17 gm 04/30/18 06:00 04/30/18 06:42 Miralax (For Daily Use) - PO 17 gm TID JD Administration Potassium Chloride 20 meq 04/30/18 10:00 04/30/18 09:59 K-Dur - PO 20 meq DAILY JD Administration ASSESSMENT/PLAN: Patient is a 57 year old female who presented with shortness of breath and was found to have pneumonia. Patient has history of breast cancer with mets and we were consulted for further monitoring and management. Problem List: Dyspnea Wheezing Pneumonia Breast cancer with liver/bone/brain mets S/P Right parietal craniotomy and stetereotactic RT Vasogenic cerebral edema Diastolic CHF (possibly in acute exacerbation) COPD on 2-3L NC (Possibly in acute exacerbation) Vasogenic cerebral edema IDDMIII HTN HYpothyroidism Plan: -Patient has metastatic HER2 breast cancer s/p GKS and WBRT. She went through chemotherapy with Dr. Kiser @ [facility] which has included pulses of steroids. -Last CT revealed liver and bone metastases; -Previously seen by rad/onc- no RT at this time -Normal transfusion thresholds. -Continue Steroids. -continue to monitor CBC -Antibiotics, as per ID -Recommend discussion with family for GOC Dispo: We will continue to follow the patient. Thank you for this consultative opportunity. Visit type - Emergency Visit Emergency Visit: Yes ED Registration Date: 04/29/18 Care time: The patient presented to the Emergency Department on the above date and was hospitalized for further evaluation of their emergent condition. - New Patient This patient is new to me today: Yes Date on this admission: 04/30/18 - Critical Care Critical Care patient: No
[2018-04-30 11:58] LABS: ACANTHOCYTES 2+; ANISOCYTOSIS 2+; MACROCYTOSIS 1+; PLATELET ESTIMATE NORMAL; TARGET CELLS 1+; TEAR DROP CELLS 1+
--- NOTE | 2018-04-30 14:09 | HP ---
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 History [employer]: Yes: Other ([employer] mets in 2015- treated with stereotactic RT, parietal craniotomy in 2015) Cardiovascular: Yes: HTN Heme/Onc: Yes: Cancer (Right breast cancer with brain mets on chemotheapy with Dr Kiser at [facility]) Endocrine: Yes: Diabetes Mellitus, Hypothyroidism - Past Surgical History Past Surgical History: Yes: Breast Biopsy, Colonoscopy, Craniotomy (right parietal craniotomy 2014 at [facility]), - Smoking History Smoking history: Unknown if ever smoked Have you smoked in the past 12 months: No Aproximately how many cigarettes per day: 0 - Alcohol/Substance Use Hx Alcohol Use: No History of Substance Use: reports: None - Social History ADL: Support Services 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, 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 [employer] History of Recent Travel: No Home Medications - Allergies Allergies/Adverse Reactions: Allergies Allergy/AdvReac Type Severity Reaction Status Date / Time Iodinated Contrast- Oral and Allergy Verified 04/29/18 13:27 IV Dye oxycodone HCl [From Percocet] Allergy Verified 04/29/18 13:27 - Home Medications Home Medications: Ambulatory Orders Acetaminophen [Pain Relief] 650 mg PO Q4HWA PRN 03/06/18 Dexamethasone [Decadron] 4 mg PO BID 03/06/18 Docusate Sodium [Colace] 300 mg PO DAILY 03/06/18 Furosemide [Lasix] 20 mg PO DAILY 03/06/18 Insulin (LOG) Aspart [NovoLOG -] 0 units SQ TID 03/06/18 Insulin Aspart [Novolog Flexpen] 0 unit SQ HS 03/06/18 Insulin Detemir [Levemir Flextouch] 38 unit SQ DAILY 03/06/18 Levetiracetam 500 mg PO BID 03/06/18 Levothyroxine [Synthroid -] 25 mcg PO DAILY 03/06/18 Lidocaine 5% Patch [Lidoderm -] 1 patch TP DAILY 03/06/18 Losartan Potassium [Cozaar] 100 mg PO DAILY 03/06/18 Metformin HCl [Glucophage] 1,000 mg PO BID 03/06/18 Nystatin Cream [Mycostatin Cream -] 1 applic TP BID 03/06/18 Nystatin Powder [Nystop Powder -] 100,000 unit TP BID 03/06/18 Ondansetron [Zofran -] 4 mg PO QID PRN 03/06/18 Pantoprazole Sodium 40 mg PO DAILY 03/06/18 Polyethylene Glycol 3350 [Miralax 119 gm Btl -] 17 gm PO TID 03/06/18 Potassium Chloride [K-Dur -] 20 meq PO DAILY 03/06/18 Insulin (Levemir) [Levemir Vial] 35 units SQ BID@0700,2200 #1 units 03/12/18 Levothyroxine [Synthroid -] 50 mcg PO DAILY@0700 #30 tablet 03/12/18 Menthol [Bengay Ultra Strength] 1 each TP PRN 04/29/18 Mirtazapine [Remeron -] 15 mg PO DAILY 04/29/18 Family Disease History - Family Disease History Family Disease History: Other: Grandparent (asthma), Father ( of unknown cause age 90), Mother (htn), Brother (3B healthy and living), Sister (4S healthy and living) Physical Examination Vital Signs: Vital Signs Temperature 97.8 F 04/29/18 23:00 Pulse Rate 99 H 04/30/18 08:32 Respiratory Rate 21 H 04/30/18 08:32 Blood Pressure 155/91 04/30/18 08:32 O2 Sat by Pulse Oximetry (%) 100 04/30/18 08:32 Labs: CBC, BMP 04/30/18 05:25 04/30/18 05:25 Problem List - Problems (1) Pneumonia Code(s): J18.9 - PNEUMONIA, UNSPECIFIED ORGANISM Qualifiers: Pneumonia type: due to unspecified organism Laterality: right Lung location: lower lobe of lung Qualified Code(s): J18.1 - Lobar pneumonia, unspecified organism (2) Respiratory failure Code(s): J96.90 - RESPIRATORY FAILURE, UNSP, UNSP W HYPOXIA OR HYPERCAPNIA (3) Metastatic breast cancer Code(s): C50.919 - MALIGNANT NEOPLASM OF UNSP SITE OF UNSPECIFIED FEMALE BREAST (4) Diabetes Code(s): E11.9 - TYPE 2 DIABETES MELLITUS WITHOUT COMPLICATIONS Qualifiers: Diabetes mellitus type: type 2 Diabetes mellitus complication status: without complication (5) Hypertension Code(s): I10 - ESSENTIAL (PRIMARY) HYPERTENSION (6) Hypothyroidism Code(s): E03.9 - HYPOTHYROIDISM, UNSPECIFIED (7) Vasogenic cerebral edema Code(s): G93.6 - CEREBRAL EDEMA
--- NOTE | 2018-04-30 16:26 | CON.ID ---
Consult Consult Specialty:: infectious diseases Referred by:: Reason for Consultation:: ams ,sob - History of Present Illness Chief Complaint: amd ,sob History of Present Illness: 57 year old female with a PMHx of Breast cancer with liver/bone/brain mets s/p Right parietal craniotomy and stetereotactic RT, vasogenic cerebral edema, IDDMIII, HTN, HYpothyroidism, Diastolic CHF, COPD (dependent on 02) who was BIBEMS and presented to the hospital for worsening shortness of breath and wheezing. patient currently unable to give any history because of ams but according to the notes patient had been wheezing for couple of days Patient was placed on BIPAP overnight and was given Duo-Nebs. no complaints of fever, chills, nausea, vomiting, abdominal pain, chest pain, diarrhea, dysuria, hematuria, urgency, melena, hematochezia, hematemesis. 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 RT, parietal craniotomy in 2014) Cardio/Vascular: Yes: HTN Endocrine: Yes: Diabetes Mellitus, Hypothyroidism - Past Surgical History Past Surgical History: Yes: Breast Biopsy, Colonoscopy, Craniotomy (right parietal craniotomy 2014 at [facility]), - Alcohol/Substance Use Hx Alcohol Use: No History of Substance Use: reports: None - Smoking History Smoking history: Unknown if ever smoked Have you smoked in the past 12 months: No Aproximately how many cigarettes per day: 0 - Social History Usual Living Arrangement: With Spouse ADL: Support Services 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, 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 [employer] History of Recent Travel: No Home Medications - Allergies Allergies/Adverse Reactions: Allergies Allergy/AdvReac Type Severity Reaction Status Date / Time Iodinated Contrast- Oral and Allergy Verified 04/29/18 13:27 IV Dye oxycodone HCl [From Percocet] Allergy Verified 04/29/18 13:27 - Home Medications Home Medications: Ambulatory Orders Acetaminophen [Pain Relief] 650 mg PO Q4HWA PRN 03/06/18 Dexamethasone [Decadron] 4 mg PO BID 03/06/18 Docusate Sodium [Colace] 300 mg PO DAILY 03/06/18 Furosemide [Lasix] 20 mg PO DAILY 03/06/18 Insulin (LOG) Aspart [NovoLOG -] 0 units SQ TID 03/06/18 Insulin Aspart [Novolog Flexpen] 0 unit SQ HS 03/06/18 Insulin Detemir [Levemir Flextouch] 38 unit SQ DAILY 03/06/18 Levetiracetam 500 mg PO BID 03/06/18 Levothyroxine [Synthroid -] 25 mcg PO DAILY 03/06/18 Lidocaine 5% Patch [Lidoderm -] 1 patch TP DAILY 03/06/18 Losartan Potassium [Cozaar] 100 mg PO DAILY 03/06/18 Metformin HCl [Glucophage] 1,000 mg PO BID 03/06/18 Nystatin Cream [Mycostatin Cream -] 1 applic TP BID 03/06/18 Nystatin Powder [Nystop Powder -] 100,000 unit TP BID 03/06/18 Ondansetron [Zofran -] 4 mg PO QID PRN 03/06/18 Pantoprazole Sodium 40 mg PO DAILY 03/06/18 Polyethylene Glycol 3350 [Miralax 119 gm Btl -] 17 gm PO TID 03/06/18 Potassium Chloride [K-Dur -] 20 meq PO DAILY 03/06/18 Insulin (Levemir) [Levemir Vial] 35 units SQ BID@0700,2200 #1 units 03/12/18 Levothyroxine [Synthroid -] 50 mcg PO DAILY@0700 #30 tablet 03/12/18 Menthol [Bengay Ultra Strength] 1 each TP PRN 04/29/18 Mirtazapine [Remeron -] 15 mg PO DAILY 04/29/18 Family Disease History - Family Disease History Family Disease History: Other: Grandparent (asthma), Father ( of unknown cause age 90), Mother (htn), Brother (3B healthy and living), Sister (4S healthy and living) Review of Systems Unable to obtain ROS, reason: unable to obtain Physical Exam Vital Signs: Vital Signs Temperature 98.3 F 04/30/18 15:29 Pulse Rate 110 H 04/30/18 15:29 Respiratory Rate 21 H 04/30/18 15:32 Blood Pressure 128/62 04/30/18 15:29 O2 Sat by Pulse Oximetry (%) 99 04/30/18 15:32 Constitutional: Yes: Other Eyes: Yes: Conjunctiva Clear Neck: Yes: Supple, Trachea Midline Cardiovascular: Yes: Regular Rate and Rhythm Respiratory: Yes: Regular, On BiPap, On Nasal O2, Poor Air Entry Gastrointestinal: Yes: Normal Bowel Sounds, Soft Musculoskeletal: Yes: WNL Extremities: Yes: WNL Neurological: Yes: Alert, Lethargy, Other Psychiatric: Yes: Other Labs: CBC, BMP 04/30/18 05:25 04/30/18 05:25 Imaging - Results Chest X-ray: Report Reviewed, Image Reviewed Assessment/Plan Problem List - Problems (1) Pneumonia Code(s): J18.9 - PNEUMONIA, UNSPECIFIED ORGANISM Qualifiers: Pneumonia type: due to unspecified organism Laterality: right Lung location: lower lobe of lung Qualified Code(s): J18.1 - Lobar pneumonia, unspecified organism (2) Respiratory failure Code(s): J96.90 - RESPIRATORY FAILURE, UNSP, UNSP W HYPOXIA OR HYPERCAPNIA (3) Metastatic breast cancer Code(s): C50.919 - MALIGNANT NEOPLASM OF UNSP SITE OF UNSPECIFIED FEMALE BREAST (4) Diabetes Code(s): E11.9 - TYPE 2 DIABETES MELLITUS WITHOUT COMPLICATIONS Qualifiers: Diabetes mellitus type: type 2 Diabetes mellitus complication status: without complication (5) Hypertension Code(s): I10 - ESSENTIAL (PRIMARY) HYPERTENSION (6) Hypothyroidism Code(s): E03.9 - HYPOTHYROIDISM, UNSPECIFIED (7) Vasogenic cerebral edema Code(s): G93.6 - CEREBRAL EDEMA patient receive iv abx plan will start on zosyn empirically await for ct of the chest resp support rest as per the team await for all cx reports
[2018-04-30] MEDS ORDERED: PIPERACILLIN/TAZOBACTAM 3.375 GM VIAL IVPB ONE (17:51)
[2018-04-30] MEDS ORDERED: PT OWN MED DRAWER 7, Y5N ONE (17:51)
[2018-04-30] MEDS ORDERED: DEXTROSE 5%-WATER - 50 ML IVPB ONE (17:51)
[2018-04-30] MEDS: PIPERACILLIN/TAZOB 3.375 GM 3.375 GM in DEXTROSE 5%-WATER - 50 ML IVPB SCH (18:09)
--- NOTE | 2018-04-30 18:18 | PN ---
Teaching Attending Note Name of Resident: Shyla Valadez ATTENDING PHYSICIAN STATEMENT I saw and evaluated the patient. I reviewed the resident's note and discussed the case with the resident. I agree with the resident's findings and plan as documented. ASSESSMENT AND PLAN: 57 y/o patient with metastatic breast cancer, brain mets admitted with pneumonia ,resp. distress from fpc on zosyn/levaquin/supportive care need to discuss goals of care/palliative care consult
[2018-04-30] MEDS ORDERED: ADENOSINE 6 MG/2 ML VIAL IVPUSH ONE ×4 (21:25→21:44)
[2018-04-30 21:39] LABS: ARTERIAL BLD GAS O2 SATURATION 94.7 % (90-98.9); ARTERIAL BLOOD GAS BASE EXCESS -3.9 meq/l (-2-2); ARTERIAL BLOOD GAS PO2 82.1 mmHg (80-100); ARTERIAL BLOOD GAS pH 7.38 (7.35-7.45)
[2018-04-30 21:40] LABS: ALLENS TEST POSITIVE
[2018-04-30] MEDS ORDERED: MIRTAZAPINE 15 MG TABLET (FP) PO SCH (22:00)
[2018-04-30] MEDS ORDERED: LIDOCAINE PATCH REMOVAL MC SCH (22:00)
--- NOTE | 2018-04-30 22:10 | RAPID ---
Physical Examination Vital Signs: Vital Signs Temperature 99 F 04/30/18 17:30 Pulse Rate 94 H 04/30/18 17:30 Respiratory Rate 26 H 04/30/18 17:30 Blood Pressure 109/70 04/30/18 17:30 O2 Sat by Pulse Oximetry (%) 98 04/30/18 17:30 Labs: CBC, BMP 04/30/18 05:25 04/30/18 05:25 Rapid Response - Rapid Response Assessment: Rapid response called at 21:17. Arrived to evaluate pt. Informed pt admitted today for Sepsis secondary to pneumonia. Respiratory status worsened from admission, pt tachypnic with accessory muscle use and saturating low 90s. Tachycardic to the 150s and 160s thus leading to rapid response call. Dr. Galindo present throughout encounter and decision making discussed with her. Exam: Vitals: 138/102, HR: 157, O2 sat 93% on 4L Alert, respiratory distress with audible wheezing Tachycardic in the 150s Diffuse wheezing with crackles noted Abdomen soft, nontender A/P Duoneb given with good effect on respiratory status HR remained elevated even as agitation improved EKG noted with likely SVT in 150s Adenosine 6mg given without effect Adenosine 12mg given without effect Concern for PE as pt with multiple risk factors, unable to CTA (dye allergy) B/L LE Duplex US CBC, BMP, BNP, Troponin, Lactic Acid, CT (noncontrast as pt allergic to contrast dye), ABG
[2018-04-30 22:58] LABS: ANION GAP 13 MMOL/L (8-16); BLOOD UREA NITROGEN 22 mg/dL (7-18); CALCIUM 8.7 mg/dL (8.5-10.1); CHLORIDE 109 mmol/L (98-107); CO2 21 mmol/L (21-32); CREATININE 0.8 mg/dL (0.55-1.3); GLUCOSE,RANDOM 94 mg/dL (74-106); MAGNESIUM 1.4 mg/dL (1.8-2.4); SODIUM 144 mmol/L (136-145)
[2018-04-30 23:02] LABS: N-TERMINAL BNP 245.8 pg/ml (5-125)
[2018-04-30] MEDS: HEPARIN NA (PORCINE) 5,000 UNITS/ML 1ML VIAL SQ SCH (23:40)
[2018-05-01] MEDS ORDERED: MAGNESIUM SULF 50% (8.12 MEQ/2 ML-1 GM VIAL) IVPB ONE (01:30)
[2018-05-01] MEDS ORDERED: DEXTROSE 5%-0.45% SALINE 1,000 ML IV SCH (01:30)
[2018-05-01] MEDS ORDERED: DEXTROSE 5%-WATER - 50 ML IVPB ONE ×3 (01:36→16:42)
[2018-05-01] MEDS ORDERED: PIPERACILLIN/TAZOBACTAM 3.375 GM VIAL IVPB ONE ×3 (01:36→16:42)
[2018-05-01] MEDS: PIPERACILLIN/TAZOB 3.375 GM 3.375 GM in DEXTROSE 5%-WATER - 50 ML IVPB SCH ×3 (02:18→17:01)
[2018-05-01] MEDS: ALBUTEROL SO4 2.5/IPRATROPIUM 0.5 INH SOL 3 ML VIAL.NEB. NEB PRN (03:35)
[2018-05-01] MEDS ORDERED: ALPRAZolam 0.25 MG TABLET PO ONE (04:00)
[2018-05-01] MEDS ORDERED: METOPROLOL TARTRATE 5 MG/5 ML VIAL ONE (04:14)
[2018-05-01] MEDS ORDERED: LACTATED RINGERS SOLUTION 1000 ML INFUS.BAG IV ONE (04:16)
[2018-05-01] MEDS ORDERED: METOPROLOL TARTRATE 5 MG/5 ML VIAL IVPUSH ONE (04:16)
[2018-05-01] MEDS ORDERED: LORazepam 2 MG/ML SDV VIAL IVPUSH ONE (04:19)
--- NOTE | 2018-05-01 04:34 | RAPID ---
Physical Examination Vital Signs: Vital Signs Temperature 99.2 F 05/01/18 02:33 Pulse Rate 130 H 05/01/18 02:33 Respiratory Rate 20 05/01/18 02:33 Blood Pressure 119/74 05/01/18 02:33 O2 Sat by Pulse Oximetry (%) 95 05/01/18 02:33 Labs: CBC, BMP 04/30/18 05:25 04/30/18 22:00 Rapid Response - Rapid Response Assessment: Rapid Response called at 4:11. Arrived to evaluate patient, crying and complaining of pain with heart rate in the 140s-150s. Chart and labs from earlier reviewed. Exam: HR: 140s-150s, Saturating 92% on 4L O2 Alert, Moderate distress, crying Tachycardic in the 150s Diffuse wheezing with crackles noted Abdomen soft, nontender A/P EKG repeated 5mg IV Lopressor given with good effect HR down to 110 Pt still anxious, Ativan initially ordered but held as pt improved with HR control 250 cc bolus LR for noted Lactic Acidosis Will f/u on rate and b.p.
[2018-05-01] MEDS: INSULIN SLIDING SCALE (NOVOLOG) 1 VIAL SQ SCH ×4 (06:31→21:35)
[2018-05-01] MEDS: LEVOTHYROXINE NA 50 MCG TABLET (FP) PO SCH (06:37)
[2018-05-01] MEDS: POLYETHYLENE GLYCOL 3350 119 GM BTL PO SCH ×3 (06:37→21:27)
[2018-05-01] MEDS: HEPARIN NA (PORCINE) 5,000 UNITS/ML 1ML VIAL SQ SCH ×3 (06:37→21:27)
[2018-05-01 06:38] LABS: BASO % 0.2 % (0-2.0); EOS % 0.1 % (0-4.5); HEMATOCRIT 31.4 % (32.4-45.2); HEMOGLOBIN 9.3 GM/dL (10.7-15.3); LYMPH % 5.6 % (8-40); MCH 21.8 pg (25.7-33.7); MCHC 29.7 g/dl (32.0-36.0); MEAN CELL VOLUME 73.3 fl (80-96); MEAN PLT VOLUME 7.7 fl (7.5-11.1); MONO % 2.5 % (3.8-10.2); NEUT % 91.6 % (42.8-82.8); PLATELET COUNT 423 K/MM3 (134-434); RBC 4.28 M/mm3 (3.60-5.2); RDW 20.9 % (11.6-15.6)
[2018-05-01] MEDS: INSULIN (LEVEMIR) 100 UNITS/ML UNITS SQ SCH ×2 (06:40→21:34)
[2018-05-01 07:08] LABS: ALBUMIN 2.5 g/dl (3.4-5.0); ALK PHOS 146 U/L (45-117); ANION GAP 11 MMOL/L (8-16); BILIRUBIN,TOTAL 0.4 mg/dL (0.2-1); BLOOD UREA NITROGEN 23 mg/dL (7-18); CALCIUM 8.9 mg/dL (8.5-10.1); CHLORIDE 107 mmol/L (98-107); CO2 22 mmol/L (21-32); CREATININE 0.8 mg/dL (0.55-1.3); GLUCOSE,RANDOM 120 mg/dL (74-106); POTASSIUM 4.6 mmol/L (3.5-5.1); SGOT/AST 129 U/L (15-37); SGPT/ALT 47 U/L (13-61); SODIUM 140 mmol/L (136-145); TOT PROT 6.5 g/dl (6.4-8.2)
[2018-05-01] MEDS ORDERED: LIDOCAINE PATCH REMOVAL MC SCH (08:25)
--- NOTE | 2018-05-01 09:07 | CON.CARD ---
Consult Consult Specialty:: Cardiology Referred by:: Dr. Galindo Reason for Consultation:: SOB - History of Present Illness Chief Complaint: Shortness of breath History of Present Illness: 57 year old female with a significant past medical history of breast cancer with metastatic disease to the brain with treatment with stereotactic RT, right parietal craniotomy for brain tumor/cerebral edema (2014), diabetes mellitus, hypothyroidism, vasogenic cerebral edema, hypertension, CHF, COPD (2-3L O2 at home), and UTIs, who presents to the ED via ems for one week of SOB and recent development of wheezing. She also reports a dry cough. She states she does not lie flat. The patient denies any fevers, chills, or diarrhea. She denies any chest pain, dizziness, abdominal pain, or lightheadedness. She denies any dysuria, frequency, urgency, hesitancy, or hematuria. A rapid response was called last evening due to shortness of breath and sinus tachycardia. Chest CT showed bilateral pleural effusions and consolidations. 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 [employer] History of Recent Travel: No Home Medications - Allergies Allergies/Adverse Reactions: Allergies Allergy/AdvReac Type Severity Reaction Status Date / Time Iodinated Contrast- Oral and Allergy Verified 04/29/18 13:27 IV Dye oxycodone HCl [From Percocet] Allergy Verified 04/29/18 13:27 - Home Medications Home Medications: Ambulatory Orders Acetaminophen [Pain Relief] 650 mg PO Q4HWA PRN 03/06/18 Dexamethasone [Decadron] 4 mg PO BID 03/06/18 Docusate Sodium [Colace] 300 mg PO DAILY 03/06/18 Furosemide [Lasix] 20 mg PO DAILY 03/06/18 Insulin (LOG) Aspart [NovoLOG -] 0 units SQ TID 03/06/18 Insulin Aspart [Novolog Flexpen] 0 unit SQ HS 03/06/18 Insulin Detemir [Levemir Flextouch] 38 unit SQ DAILY 03/06/18 Levetiracetam 500 mg PO BID 03/06/18 Levothyroxine [Synthroid -] 25 mcg PO DAILY 03/06/18 Lidocaine 5% Patch [Lidoderm -] 1 patch TP DAILY 03/06/18 Losartan Potassium [Cozaar] 100 mg PO DAILY 03/06/18 Metformin HCl [Glucophage] 1,000 mg PO BID 03/06/18 Nystatin Cream [Mycostatin Cream -] 1 applic TP BID 03/06/18 Nystatin Powder [Nystop Powder -] 100,000 unit TP BID 03/06/18 Ondansetron [Zofran -] 4 mg PO QID PRN 03/06/18 Pantoprazole Sodium 40 mg PO DAILY 03/06/18 Polyethylene Glycol 3350 [Miralax 119 gm Btl -] 17 gm PO TID 03/06/18 Potassium Chloride [K-Dur -] 20 meq PO DAILY 03/06/18 Insulin (Levemir) [Levemir Vial] 35 units SQ BID@0700,2200 #1 units 03/12/18 Levothyroxine [Synthroid -] 50 mcg PO DAILY@0700 #30 tablet 03/12/18 Menthol [Bengay Ultra Strength] 1 each TP PRN 04/29/18 Mirtazapine [Remeron -] 15 mg PO DAILY 04/29/18 Family Disease History - Family Disease History Family Disease History: Other: Grandparent (asthma), Father ( of unknown cause age 90), Mother (htn), Brother (3B healthy and living), Sister (4S healthy and living) Review of Systems Findings/Remarks: see HPI - Review of Systems Cardiovascular: reports: Shortness of Breath Respiratory: reports: SOB Gastrointestinal: denies: No Symptoms, Abdominal Pain, Bloating, Constipation, Diarrhea, Dysphagia, Indigestion, Melena, Nausea, Rectal Bleeding, Vomiting, Vomiting Blood, Other Genitourinary: denies: No Symptoms, Burning, Discharge, Dysuria, Flank Pain, Frequency, Hematuria, Incontinence, Lesions, Menses, Pain, Testicular Mass, Testicular Pain, Testicular Swelling, Urgency, Vaginal Bleeding, Other Breasts: denies: No Symptoms Reported, See HPI, Breast Implants, Discharge from Nipple, Lumps, Pain, Skin Changes, Other Musculoskeletal: denies: No Symptoms, Back Pain, Crepitus, Decreased ROM, Extremity Pain, Joint Pain, Joint Swelling, Muscle Pain, Muscle Cramps, Muscle Weakness, Other Integumentary: denies: No Symptoms, Blister, Bruising, Change in Color, Eczema, Erythema, Incision, Lesions, Lump, Pallor, Pruritis, Rash, Wound, Other - Risk Factors Known Risk Factors: Yes: Diabetes Mellitus, Hypertension Vital Signs: Vital Signs Temperature 99.2 F 05/01/18 02:33 Pulse Rate 145 H 05/01/18 04:15 Respiratory Rate 20 05/01/18 02:33 Blood Pressure 162/113 H 05/01/18 04:15 O2 Sat by Pulse Oximetry (%) 95 05/01/18 02:33 Eyes: Yes: Conjunctiva Clear Respiratory: Yes: Rales, Rhonchi Gastrointestinal: Yes: Soft JVD: No Heart Sounds: Yes: S1, S2 (RRR) Edema: No (venodynes in place) Neurological: Yes: Alert - Other Data Labs, Other Data: CBC, BMP 05/01/18 05:30 05/01/18 05:30 INR, PTT INR 1.24 (0.83-1.09) H 04/29/18 14:24 Troponin, BNP 04/30/18 04/30/18 05/01/18 22:00 22:00 05:30 Troponin I < 0.02 < 0.02 B-Natriuretic Peptide 245.8 H Troponin, BNP 04/30/18 04/30/18 05/01/18 22:00 22:00 05:30 Troponin I < 0.02 < 0.02 B-Natriuretic Peptide 245.8 H Microbiology 04/29/18 14:24 Blood - Peripheral Venous Blood Culture - Preliminary NO GROWTH OBTAINED AFTER 24 HOURS, INCUBATION TO CONTINUE FOR 4 DAYS. 04/29/18 14:24 Blood - Peripheral Venous Blood Culture - Preliminary NO GROWTH OBTAINED AFTER 24 HOURS, INCUBATION TO CONTINUE FOR 4 DAYS. Laboratory Tests 04/30/18 05/01/18 05/01/18 22:00 05:30 05:30 WBC 11.0 H Hgb 9.3 L Hct 31.4 L Plt Count 423 Sodium 140 Potassium 4.6 BUN 23 H Creatinine 0.8 Troponin I < 0.02 < 0.02 Sinus tach 115bpm, LAE Echo: Pending Imaging - Results Chest X-ray: Image Reviewed EKG: Image Reviewed Problem List - Problems (1) Acute on chronic diastolic CHF (congestive heart failure) Code(s): I50.33 - ACUTE ON CHRONIC DIASTOLIC (CONGESTIVE) HEART FAILURE (2) Metastatic breast cancer Code(s): C50.919 - MALIGNANT NEOPLASM OF UNSP SITE OF UNSPECIFIED FEMALE BREAST (3) Pneumonia Code(s): J18.9 - PNEUMONIA, UNSPECIFIED ORGANISM Qualifiers: Pneumonia type: due to unspecified organism Laterality: right Lung location: lower lobe of lung Qualified Code(s): J18.1 - Lobar pneumonia, unspecified organism (4) Respiratory failure Code(s): J96.90 - RESPIRATORY FAILURE, UNSP, UNSP W HYPOXIA OR HYPERCAPNIA (5) Cerebral edema Code(s): G93.6 - CEREBRAL EDEMA Assessment/Plan IMP: Metastatic breast cancer Lung consolidations: PNA? vs mets Pleural effusions Acute on chronic diastolic CHF REC: 1. Start Lasix: 40mg IV BID 2. Supplimental O2 3. Echo 4. DVT prophylaxis. Will follow
[2018-05-01] MEDS ORDERED: LOSARTAN POTASSIUM 50 MG TABLET (FP) PO SCH (10:00)
[2018-05-01] MEDS: levETIRAcetam 500 MG TABLET (FP) PO SCH ×2 (10:13→21:27)
[2018-05-01] MEDS: DOCUSATE SODIUM 100 MG CAPSULE (FP) PO SCH (10:13)
[2018-05-01] MEDS: DEXAMETHASONE 4 MG TABLET (FP) PO SCH ×2 (10:13→21:27)
[2018-05-01] MEDS: ACETAMINOPHEN 325 MG TABLET (FP) PO PRN ×2 (10:23→15:11)
[2018-05-01 10:35] LABS: ANISOCYTOSIS 1+; MACROCYTOSIS 0; OVALOCYTE 1+; PLATELET ESTIMATE NORMAL; TARGET CELLS 1+
[2018-05-01] MEDS: LIDOCAINE 5% TOPICAL PATCH TP SCH (11:00)
[2018-05-01] MEDS: POTASSIUM CHLORIDE TABS 20 MEQ TABLET.ER (FP) PO SCH (11:00)
[2018-05-01] MEDS: PANTOPRAZOLE 40 MG TABLET (FP) PO SCH (11:01)
--- NOTE | 2018-05-01 11:38 | PN ---
Progress Note (short form) - Note Progress Note: PULMONARY CONSULTATION DICTATED 05/01/18
[2018-05-01] MEDS ORDERED: PT OWN MED DRAWER 7, Y5N ONE (12:33)
--- NOTE | 2018-05-01 12:56 | EKG ---
Test Reason : Blood Pressure : / mmHG Vent. Rate : 146 BPM Atrial Rate : 146 BPM P-R Int : 136 ms QRS Dur : 068 ms QT Int : 266 ms P-R-T Axes : 030 033 051 degrees QTc Int : 414 ms SINUS TACHYCARDIA POSSIBLE LEFT ATRIAL ENLARGEMENT BORDERLINE ECG WHEN COMPARED WITH ECG OF 30-APR-2018 21:44, NO SIGNIFICANT CHANGE WAS FOUND Confirmed by Puma Phillips ([id number]) on 05/01/2018 12:56:37 PM Referred By: Confirmed By:Puma Phillips
--- NOTE | 2018-05-01 14:17 | CON.PULM ---
Consult Consult Specialty:: PULM/CCM Referred by:: CHIP Reason for Consultation:: SOB - History of Present Illness Chief Complaint: SOB History of Present Illness: 57 F, history of metastatic breast cancer to the lung, liver, and brain, S/P stereotactic brain RT, right parietal craniotomy for brain tumor/cerebral edema (2014), diabetes mellitus, hypothyroidism, vasogenic cerebral edema, hypertension, CHF, and COPD on 3L O2 at home. Admitted via the ER due to one week of progressive SOB, dry cough, and wheezing. (+) Orthopnea. No reported hemoptysis. No travel history or sick contacts. 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, parietal craniotomy in 2014) Cardio/Vascular: Yes: HTN Pulmonary: Yes: COPD, O2 Dependent ...: No Endocrine: Yes: Diabetes Mellitus, Hypothyroidism - Past Surgical History Past Surgical History: Yes: Breast Biopsy, Colonoscopy, Craniotomy (right parietal craniotomy 2014 at [facility]), - Alcohol/Substance Use Hx Alcohol Use: No History of Substance Use: reports: None - Smoking History Smoking history: Unknown if ever smoked Have you smoked in the past 12 months: No Aproximately how many cigarettes per day: 0 - Social History Usual Living Arrangement: With Spouse ADL: Support Services 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, 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 [employer] History of Recent Travel: No Home Medications - Allergies Allergies/Adverse Reactions: Allergies Allergy/AdvReac Type Severity Reaction Status Date / Time Iodinated Contrast- Oral and Allergy Verified 04/29/18 13:27 IV Dye oxycodone HCl [From Percocet] Allergy Verified 04/29/18 13:27 - Home Medications Home Medications: Ambulatory Orders Acetaminophen [Pain Relief] 650 mg PO Q4HWA PRN 03/06/18 Dexamethasone [Decadron] 4 mg PO BID 03/06/18 Docusate Sodium [Colace] 300 mg PO DAILY 03/06/18 Furosemide [Lasix] 20 mg PO DAILY 03/06/18 Insulin (LOG) Aspart [NovoLOG -] 0 units SQ TID 03/06/18 Insulin Aspart [Novolog Flexpen] 0 unit SQ HS 03/06/18 Insulin Detemir [Levemir Flextouch] 38 unit SQ DAILY 03/06/18 Levetiracetam 500 mg PO BID 03/06/18 Levothyroxine [Synthroid -] 25 mcg PO DAILY 03/06/18 Lidocaine 5% Patch [Lidoderm -] 1 patch TP DAILY 03/06/18 Losartan Potassium [Cozaar] 100 mg PO DAILY 03/06/18 Metformin HCl [Glucophage] 1,000 mg PO BID 03/06/18 Nystatin Cream [Mycostatin Cream -] 1 applic TP BID 03/06/18 Nystatin Powder [Nystop Powder -] 100,000 unit TP BID 03/06/18 Ondansetron [Zofran -] 4 mg PO QID PRN 03/06/18 Pantoprazole Sodium 40 mg PO DAILY 03/06/18 Polyethylene Glycol 3350 [Miralax 119 gm Btl -] 17 gm PO TID 03/06/18 Potassium Chloride [K-Dur -] 20 meq PO DAILY 03/06/18 Insulin (Levemir) [Levemir Vial] 35 units SQ BID@0700,2200 #1 units 03/12/18 Levothyroxine [Synthroid -] 50 mcg PO DAILY@0700 #30 tablet 03/12/18 Menthol [Bengay Ultra Strength] 1 each TP PRN 04/29/18 Mirtazapine [Remeron -] 15 mg PO DAILY 04/29/18 Family Disease History - Family Disease History Family Disease History: Other: Grandparent (asthma), Father ( of unknown cause age 90), Mother (htn), Brother (3B healthy and living), Sister (4S healthy and living) Review of Systems - Review of Systems Constitutional: reports: Lethargy, Malaise, Weakness. denies: Chills, Fever, Night Sweats Eyes: reports: No Symptoms HENT: reports: No Symptoms Neck: reports: No Symptoms Cardiovascular: reports: Edema, Shortness of Breath. denies: Chest Pain Respiratory: reports: Cough, Orthopnea, PND, Snoring, SOB, SOB on Exertion, Wheezing. denies: Hemoptysis Gastrointestinal: reports: Bloating. denies: Vomiting, Vomiting Blood Genitourinary: reports: No Symptoms Breasts: reports: Pain Musculoskeletal: reports: Back Pain Integumentary: reports: No Symptoms Neurological: reports: Confusion Endocrine: reports: No Symptoms Hematology/Lymphatic: reports: No Symptoms Psychiatric: reports: Altered Sleep Pattern Physical Exam Vital Sings: Vital Signs Temperature 98.6 F 05/01/18 09:30 Pulse Rate 117 H 05/01/18 09:30 Respiratory Rate 22 H 05/01/18 09:30 Blood Pressure 136/74 05/01/18 09:30 O2 Sat by Pulse Oximetry (%) 95 05/01/18 02:33 Constitutional: Yes: Mild Distress, Obese Eyes: Yes: Conjunctiva Clear, EOM Intact HENT: Yes: Other (surical scars ) Neck: Yes: Supple, Trachea Midline Cardiovascular: Yes: Tachycardia Respiratory: Yes: Cough, Diminished, Dullness, On Nasal O2, Rales, Rhonchi, SOB , SOB on Exertion, Tachypnea. No: Accessory Muscle Use, Stridor, Wheezes ...Inspection: Yes: Trachea Midline ...Clubbing: No Gastrointestinal: Yes: Normal Bowel Sounds, Soft, Abdomen, Obese Musculoskeletal: Yes: Back Pain Extremities: Yes: WNL Edema: Yes Peripheral Pulses WNL: Yes Integumentary: Yes: WNL Neurological: Yes: Alert, Oriented ...Motor Strength: WNL Psychiatric: Yes: Alert Labs: CBC, BMP 05/01/18 05:30 05/01/18 05:30 ABG Results ABG pH 7.38 (7.35-7.45) 04/30/18 21:30 ABG pCO2 at Pt Temp 35.0 mmHg (35-45) 04/30/18 21:30 ABG pO2 at Pt Temp 82.1 mmHg (80-100) 04/30/18 21:30 ABG HCO3 20.2 meq/L (22-26) L 04/30/18 21:30 ABG O2 Sat (Measured) 94.7 % (90-98.9) 04/30/18 21:30 ABG O2 Content 13.4 % vol (15-22) L 04/30/18 21:30 ABG Base Excess -3.9 meq/l (-2-2) L 04/30/18 21:30 Imaging - Results Chest X-ray: Report Reviewed, Image Reviewed Cat Scan: Report Reviewed, Image Reviewed Problem List - Problems (1) Acute on chronic diastolic CHF (congestive heart failure) Code(s): I50.33 - ACUTE ON CHRONIC DIASTOLIC (CONGESTIVE) HEART FAILURE (2) Metastatic breast cancer Code(s): C50.919 - MALIGNANT NEOPLASM OF UNSP SITE OF UNSPECIFIED FEMALE BREAST (3) Pneumonia Code(s): J18.9 - PNEUMONIA, UNSPECIFIED ORGANISM Qualifiers: Pneumonia type: due to unspecified organism Laterality: right Lung location: lower lobe of lung Qualified Code(s): J18.1 - Lobar pneumonia, unspecified organism (4) Anemia Code(s): D64.9 - ANEMIA, UNSPECIFIED Qualifiers: Anemia type: unspecified type Qualified Code(s): D64.9 - Anemia, unspecified (5) Back pain Code(s): M54.9 - DORSALGIA, UNSPECIFIED Qualifiers: Back pain location: back pain in other location Chronicity: chronic Qualified Code(s): M54.9 - Dorsalgia, unspecified; G89.29 - Other chronic pain (6) Breast CA Code(s): C50.919 - MALIGNANT NEOPLASM OF UNSP SITE OF UNSPECIFIED FEMALE BREAST Qualifiers: Breast location: overlapping sites of breast Laterality: right (7) Diabetes Code(s): E11.9 - TYPE 2 DIABETES MELLITUS WITHOUT COMPLICATIONS Qualifiers: Diabetes mellitus type: type 2 Diabetes mellitus complication status: without complication (8) Generalized weakness Code(s): R53.1 - WEAKNESS (9) Hypertension Code(s): I10 - ESSENTIAL (PRIMARY) HYPERTENSION (10) Hypothyroidism Code(s): E03.9 - HYPOTHYROIDISM, UNSPECIFIED (11) Intracranial mass Code(s): R90.0 - INTCRN SPACE-OCCUPYING LESION FOUND ON DX IMAGING OF CNSL Assessment/Plan Agree with Lasix Noted empiric ABX for possible PNA O2 as needed to maintain saturation No need for systemic steroids: Do not suspect AE of COPD BD TX PRN NIPPV as needed Should consider P Care evaluation for GOC Daily weight Will follow Thank you. Dr Coates
--- NOTE | 2018-05-01 14:48 | ECHO ---
Name: GLORIA GARZA Exam:Adult Echocardiogram Study Date: 05/01/2018 09:01 AM Age: 57 yrs Reason For Study: Eval Resp Distress Height: 65 in Weight: 210 lb BSA: 2.0 m2 MMode/2D Measurements & Calculations IVSd: 1.3 cm Ao root diam: 2.9 cm LVIDd: 3.2 cm ACS: 2.0 cm LVIDs: 2.7 cm LVPWd: 1.2 cm EDV(Teich): 41.7 ml LVOT diam: 2.0 cm ESV(Teich): 26.3 ml Doppler Measurements & Calculations TV V2 max: 272.3 cm/sec TV max P.7 mmHg TV V2 mean: 190.6 cm/sec TV mean P.8 mmHg TV V2 VTI: 55.7 cm Left Ventricle Ejection Fraction = 65-70%. The left ventricle is hyperdynamic. Right Ventricle The right ventricle is not well visualized. Atria The left atrial size is normal. Right atrium not well visualized. Mitral Valve The mitral valve is grossly normal. Tricuspid Valve The tricuspid valve is not well visualized, but is grossly normal. Aortic Valve The aortic valve is trileaflet. No aortic regurgitation is present. Pulmonic Valve The pulmonic valve is not well visualized. Pericardium/Pleura There is no pericardial effusion. Interpretation Summary Limited study due to patient compliance. The patient was tachycardic during this exam. The left ventricle is hyperdynamic. The right ventricle is not well visualized. Puma Phillips 05/01/2018 02:48 PM
[2018-05-01] MEDS: FUROSEMIDE 40 MG/4 ML INJECTABLE VIAL IVPUSH SCH (14:52)
--- NOTE | 2018-05-01 15:03 | PN ---
Progress Note, Physician History of Present Illness: patient breathing better ct scan seen and results noted on nasal o2 more alert - Current Medication List Current Medications: Active Medications Acetaminophen (Tylenol -) 650 mg PO Q6H PRN PRN Reason: Fever Or Pain Last Admin: 05/01/18 10:23 Dose: 650 mg Albuterol/Ipratropium (Duoneb -) 1 amp NEB Q6H PRN PRN Reason: SHORTNESS OF BREATH Dexamethasone (Decadron -) 4 mg PO BID [facility] Last Admin: 05/01/18 10:13 Dose: 4 mg Docusate Sodium (Colace -) 300 mg PO DAILY [facility] Last Admin: 05/01/18 10:13 Dose: 300 mg Furosemide (Lasix Injection -) 40 mg IVPUSH BID@0600,1400 [facility] Last Admin: 05/01/18 14:52 Dose: 40 mg Heparin Sodium (Porcine) (Heparin -) 5,000 unit SQ TID [facility] Last Admin: 05/01/18 14:52 Dose: 5,000 unit Levofloxacin (Levaquin 500 Mg Premixed Ivpb -) 500 mg in 100 mls @ 100 mls/hr IVPB DAILY [facility]; Protocol Last Admin: 05/01/18 10:13 Dose: 100 mls/hr Piperacillin Sod/Tazobactam (Sod 3.375 gm/ Dextrose) 50 mls @ 100 mls/hr IVPB Q8H-IV [facility]; Protocol Last Admin: 05/01/18 11:01 Dose: 100 mls/hr Insulin Aspart (Novolog Vial Sliding Scale -) 1 vial SQ ACHS [facility]; Protocol Last Admin: 05/01/18 11:06 Dose: Not Given Insulin Detemir (Levemir Vial) 35 units SQ BID@0700,2200 [facility] Levetiracetam (Keppra -) 500 mg PO BID [facility] Last Admin: 05/01/18 10:13 Dose: 500 mg Levothyroxine Sodium (Synthroid -) 50 mcg PO DAILY@0700 [facility] Lidocaine (Lidoderm Patch -) 1 patch TP DAILY [facility] Last Admin: 05/01/18 11:00 Dose: 1 patch Losartan Potassium (Cozaar -) 100 mg PO DAILY [facility] Last Admin: 05/01/18 11:00 Dose: 100 mg Mirtazapine (Remeron -) 15 mg PO [facility] Miscellaneous (Lidoderm Patch Removal) 1 each DAILY@2200 [facility] Morphine Sulfate (Morphine Sulfate) 2 mg IVPUSH Q6H PRN PRN Reason: PAIN LEVEL 6-10 Pantoprazole Sodium (Protonix -) 40 mg PO DAILY [facility] Last Admin: 05/01/18 11:01 Dose: 40 mg Polyethylene Glycol (Miralax (For Daily Use) -) 17 gm PO TID [facility] Last Admin: 05/01/18 14:52 Dose: 17 gm Potassium Chloride (K-Dur -) 20 meq PO DAILY [facility] Last Admin: 05/01/18 11:00 Dose: 20 meq - Objective Vital Signs: Vital Signs Temperature 98.6 F 05/01/18 14:00 Pulse Rate 115 H 05/01/18 14:00 Respiratory Rate 21 H 05/01/18 14:00 Blood Pressure 118/65 05/01/18 14:00 O2 Sat by Pulse Oximetry (%) 95 05/01/18 02:33 Constitutional: Yes: No Distress, Calm, Obese Cardiovascular: Yes: S1, S2 Respiratory: Yes: Regular, On Nasal O2, Poor Air Entry (bases) Gastrointestinal: Yes: Normal Bowel Sounds, Soft Musculoskeletal: Yes: WNL Extremities: Yes: WNL Neurological: Yes: Alert Psychiatric: Yes: Alert Labs: CBC, BMP 05/01/18 05:30 05/01/18 05:30 INR, PTT INR 1.24 (0.83-1.09) H 04/29/18 14:24 - ....Imaging Cat Scan: Report Reviewed, Image Reviewed Assessment/Plan Problem List - Problems (1) Pneumonia Code(s): J18.9 - PNEUMONIA, UNSPECIFIED ORGANISM Qualifiers: Pneumonia type: due to unspecified organism Laterality: right Lung location: lower lobe of lung Qualified Code(s): J18.1 - Lobar pneumonia, unspecified organism (2) Respiratory failure Code(s): J96.90 - RESPIRATORY FAILURE, UNSP, UNSP W HYPOXIA OR HYPERCAPNIA (3) Metastatic breast cancer Code(s): C50.919 - MALIGNANT NEOPLASM OF UNSP SITE OF UNSPECIFIED FEMALE BREAST (4) Diabetes Code(s): E11.9 - TYPE 2 DIABETES MELLITUS WITHOUT COMPLICATIONS Qualifiers: Diabetes mellitus type: type 2 Diabetes mellitus complication status: without complication (5) Hypertension Code(s): I10 - ESSENTIAL (PRIMARY) HYPERTENSION (6) Hypothyroidism Code(s): E03.9 - HYPOTHYROIDISM, UNSPECIFIED (7) Vasogenic cerebral edema Code(s): G93.6 - CEREBRAL EDEMA patient receive iv abx plan will continue abx empirically ct of the chest seen resp support rest as per the team await for all cx reports
--- NOTE | 2018-05-01 19:46 | PN ---
Progress Note, Physician History of Present Illness: Pt agitated - Current Medication List Current Medications: Active Medications Acetaminophen (Tylenol -) 650 mg PO Q6H PRN PRN Reason: Fever Or Pain Last Admin: 05/01/18 15:11 Dose: 650 mg Albuterol/Ipratropium (Duoneb -) 1 amp NEB Q6H PRN PRN Reason: SHORTNESS OF BREATH Dexamethasone (Decadron -) 4 mg PO BID [facility] Last Admin: 05/01/18 10:13 Dose: 4 mg Docusate Sodium (Colace -) 300 mg PO DAILY [facility] Last Admin: 05/01/18 10:13 Dose: 300 mg Furosemide (Lasix Injection -) 40 mg IVPUSH BID@0600,1400 [facility] Last Admin: 05/01/18 14:52 Dose: 40 mg Heparin Sodium (Porcine) (Heparin -) 5,000 unit SQ TID [facility] Last Admin: 05/01/18 14:52 Dose: 5,000 unit Levofloxacin (Levaquin 500 Mg Premixed Ivpb -) 500 mg in 100 mls @ 100 mls/hr IVPB DAILY [facility]; Protocol Last Admin: 05/01/18 10:13 Dose: 100 mls/hr Piperacillin Sod/Tazobactam (Sod 3.375 gm/ Dextrose) 50 mls @ 100 mls/hr IVPB Q8H-IV [facility]; Protocol Last Admin: 05/01/18 17:01 Dose: 100 mls/hr Insulin Aspart (Novolog Vial Sliding Scale -) 1 vial SQ ACHS [facility]; Protocol Last Admin: 05/01/18 17:01 Dose: 2 units Insulin Detemir (Levemir Vial) 35 units SQ BID@0700,2200 [facility] Levetiracetam (Keppra -) 500 mg PO BID [facility] Last Admin: 05/01/18 10:13 Dose: 500 mg Levothyroxine Sodium (Synthroid -) 50 mcg PO DAILY@0700 [facility] Lidocaine (Lidoderm Patch -) 1 patch TP DAILY [facility] Last Admin: 05/01/18 11:00 Dose: 1 patch Losartan Potassium (Cozaar -) 100 mg PO DAILY [facility] Last Admin: 05/01/18 11:00 Dose: 100 mg Mirtazapine (Remeron -) 15 mg PO HS [facility] Miscellaneous (Lidoderm Patch Removal) 1 each MC DAILY@2200 [facility] Morphine Sulfate (Morphine Sulfate) 2 mg IVPUSH Q6H PRN PRN Reason: PAIN LEVEL 6-10 Pantoprazole Sodium (Protonix -) 40 mg PO DAILY [facility] Last Admin: 05/01/18 11:01 Dose: 40 mg Polyethylene Glycol (Miralax (For Daily Use) -) 17 gm PO TID [facility] Last Admin: 05/01/18 14:52 Dose: 17 gm Potassium Chloride (K-Dur -) 20 meq PO DAILY [facility] Last Admin: 05/01/18 11:00 Dose: 20 meq - Objective Vital Signs: Vital Signs Temperature 98.6 F 05/01/18 14:00 Pulse Rate 115 H 05/01/18 14:00 Respiratory Rate 21 H 05/01/18 14:00 Blood Pressure 118/65 05/01/18 14:00 O2 Sat by Pulse Oximetry (%) 98 05/01/18 09:00 HENT: Yes: WNL Neck: Yes: WNL, Supple Cardiovascular: Yes: WNL, Tachycardia Respiratory: Yes: Diminished, Rales Gastrointestinal: Yes: WNL, Normal Bowel Sounds, Soft Edema: LLE: Trace, RLE: Trace Labs: CBC, BMP 05/01/18 05:30 05/01/18 05:30 INR, PTT INR 1.24 (0.83-1.09) H 04/29/18 14:24 Problem List - Problems (1) Pneumonia Assessment/Plan: Cont IV levaquin Cont nebulizers Code(s): J18.9 - PNEUMONIA, UNSPECIFIED ORGANISM Qualifiers: Pneumonia type: due to unspecified organism Laterality: right Lung location: lower lobe of lung Qualified Code(s): J18.1 - Lobar pneumonia, unspecified organism (2) Respiratory failure Assessment/Plan: Multifactorial Lung mets/infitrate/effusions Cont nebulizers Code(s): J96.90 - RESPIRATORY FAILURE, UNSP, UNSP W HYPOXIA OR HYPERCAPNIA (3) Metastatic breast cancer Assessment/Plan: Palliative care consult Code(s): C50.919 - MALIGNANT NEOPLASM OF UNSP SITE OF UNSPECIFIED FEMALE BREAST (4) Diabetes Code(s): E11.9 - TYPE 2 DIABETES MELLITUS WITHOUT COMPLICATIONS Qualifiers: Diabetes mellitus type: type 2 Diabetes mellitus complication status: without complication (5) Hypertension Code(s): I10 - ESSENTIAL (PRIMARY) HYPERTENSION (6) Hypothyroidism Code(s): E03.9 - HYPOTHYROIDISM, UNSPECIFIED (7) Vasogenic cerebral edema Code(s): G93.6 - CEREBRAL EDEMA
[2018-05-01] MEDS: MIRTAZAPINE 15 MG TABLET (FP) PO SCH (21:27)
[2018-05-01] MEDS: LORazepam 2 MG/ML SDV VIAL IVPUSH PRN (21:37)
[2018-05-01] MEDS: LIDOCAINE PATCH REMOVAL MC SCH (22:20)
[2018-05-02] MEDS ORDERED: PIPERACILLIN/TAZOBACTAM 3.375 GM VIAL IVPB ONE ×3 (01:18→18:21)
[2018-05-02] MEDS ORDERED: DEXTROSE 5%-WATER - 50 ML IVPB ONE ×3 (01:19→18:21)
[2018-05-02] MEDS: PIPERACILLIN/TAZOB 3.375 GM 3.375 GM in DEXTROSE 5%-WATER - 50 ML IVPB SCH ×3 (01:22→18:23)
[2018-05-02] MEDS: HEPARIN NA (PORCINE) 5,000 UNITS/ML 1ML VIAL SQ SCH ×3 (05:52→21:43)
[2018-05-02] MEDS: POLYETHYLENE GLYCOL 3350 119 GM BTL PO SCH ×3 (05:52→22:05)
[2018-05-02] MEDS: FUROSEMIDE 40 MG/4 ML INJECTABLE VIAL IVPUSH SCH ×2 (05:52→09:46)
[2018-05-02] MEDS: LORazepam 2 MG/ML SDV VIAL IVPUSH PRN ×2 (05:53→20:39)
[2018-05-02] MEDS: ALBUTEROL SO4 2.5/IPRATROPIUM 0.5 INH SOL 3 ML VIAL.NEB. NEB PRN ×2 (06:05→08:01)
[2018-05-02] MEDS: INSULIN SLIDING SCALE (NOVOLOG) 1 VIAL SQ SCH ×4 (06:17→22:04)
[2018-05-02] MEDS: INSULIN (LEVEMIR) 100 UNITS/ML UNITS SQ SCH ×2 (06:17→22:03)
[2018-05-02] MEDS: LEVOTHYROXINE NA 50 MCG TABLET (FP) PO SCH (06:18)
[2018-05-02 07:31] LABS: BASO % 0.1 % (0-2.0); HEMATOCRIT 30.3 % (32.4-45.2); HEMOGLOBIN 8.9 GM/dL (10.7-15.3); LYMPH % 7.4 % (8-40); MCH 21.5 pg (25.7-33.7); MCHC 29.3 g/dl (32.0-36.0); MEAN CELL VOLUME 73.4 fl (80-96); MEAN PLT VOLUME 7.9 fl (7.5-11.1); MONO % 5.3 % (3.8-10.2); NEUT % 87.2 % (42.8-82.8); PLATELET COUNT 383 K/MM3 (134-434); RBC 4.13 M/mm3 (3.60-5.2); WHITE BLOOD COUNT 10.1 K/mm3 (4.0-10.0)
[2018-05-02 08:21] LABS: ALBUMIN 2.5 g/dl (3.4-5.0); ALK PHOS 128 U/L (45-117); ANION GAP 15 MMOL/L (8-16); BILIRUBIN,TOTAL 0.4 mg/dL (0.2-1); BLOOD UREA NITROGEN 20 mg/dL (7-18); CALCIUM 8.8 mg/dL (8.5-10.1); CHLORIDE 107 mmol/L (98-107); CO2 23 mmol/L (21-32); CREATININE 0.7 mg/dL (0.55-1.3); GLUCOSE,RANDOM 168 mg/dL (74-106); POTASSIUM 3.7 mmol/L (3.5-5.1); SGOT/AST 96 U/L (15-37); SGPT/ALT 42 U/L (13-61); SODIUM 145 mmol/L (136-145); TOT PROT 6.1 g/dl (6.4-8.2)
--- NOTE | 2018-05-02 08:54 | PN ---
Progress Note, Physician Chief Complaint: seems more comfortable TELE: NSR, sinus tach History of Present Illness: Echo technically difficult LV hyperdynamic - Current Medication List Current Medications: Active Medications Acetaminophen (Tylenol -) 650 mg PO Q6H PRN PRN Reason: Fever Or Pain Last Admin: 05/01/18 15:11 Dose: 650 mg Albuterol/Ipratropium (Duoneb -) 1 amp NEB Q6H PRN PRN Reason: SHORTNESS OF BREATH Last Admin: 05/02/18 08:01 Dose: 1 amp Dexamethasone (Decadron -) 4 mg PO BID [facility] Last Admin: 05/01/18 21:27 Dose: 4 mg Docusate Sodium (Colace -) 300 mg PO DAILY [facility] Last Admin: 05/01/18 10:13 Dose: 300 mg Furosemide (Lasix Injection -) 40 mg IVPUSH BID@0600,1400 [facility] Last Admin: 05/02/18 05:52 Dose: 40 mg Heparin Sodium (Porcine) (Heparin -) 5,000 unit SQ TID [facility] Last Admin: 05/02/18 05:52 Dose: 5,000 unit Levofloxacin (Levaquin 500 Mg Premixed Ivpb -) 500 mg in 100 mls @ 100 mls/hr IVPB DAILY [facility]; Protocol Last Admin: 05/01/18 10:13 Dose: 100 mls/hr Piperacillin Sod/Tazobactam (Sod 3.375 gm/ Dextrose) 50 mls @ 100 mls/hr IVPB Q8H-IV [facility]; Protocol Last Admin: 05/02/18 01:22 Dose: 100 mls/hr Insulin Aspart (Novolog Vial Sliding Scale -) 1 vial SQ ACHS [facility]; Protocol Last Admin: 05/02/18 06:17 Dose: 2 units Insulin Detemir (Levemir Vial) 35 units SQ BID@0700,2200 [facility] Last Admin: 05/02/18 06:17 Dose: 35 units Levetiracetam (Keppra -) 500 mg PO BID [facility] Last Admin: 05/01/18 21:27 Dose: 500 mg Levothyroxine Sodium (Synthroid -) 50 mcg PO DAILY@0700 [facility] Last Admin: 05/02/18 06:18 Dose: 50 mcg Lidocaine (Lidoderm Patch -) 1 patch TP DAILY [facility] Last Admin: 05/01/18 11:00 Dose: 1 patch Lorazepam (Ativan Injection -) 0.5 mg IVPUSH Q8H PRN PRN Reason: ANXIETY Last Admin: 05/02/18 05:53 Dose: 0.5 mg Losartan Potassium (Cozaar -) 100 mg PO DAILY [facility] Last Admin: 05/01/18 11:00 Dose: 100 mg Mirtazapine (Remeron -) 15 mg PO HS [facility] Last Admin: 05/01/18 21:27 Dose: 15 mg Miscellaneous (Lidoderm Patch Removal) 1 each MC DAILY@2200 [facility] Last Admin: 05/01/18 22:20 Dose: 1 each Morphine Sulfate (Morphine Sulfate) 2 mg IVPUSH Q6H PRN PRN Reason: PAIN LEVEL 6-10 Pantoprazole Sodium (Protonix -) 40 mg PO DAILY [facility] Last Admin: 05/01/18 11:01 Dose: 40 mg Polyethylene Glycol (Miralax (For Daily Use) -) 17 gm PO TID [facility] Last Admin: 05/02/18 05:52 Dose: 17 gm Potassium Chloride (K-Dur -) 20 meq PO DAILY [facility] Last Admin: 05/01/18 11:00 Dose: 20 meq - Objective Vital Signs: Vital Signs Temperature 98.2 F 05/02/18 06:00 Pulse Rate 108 H 05/02/18 06:00 Respiratory Rate 18 05/02/18 06:00 Blood Pressure 115/73 05/02/18 06:00 O2 Sat by Pulse Oximetry (%) 93 L 05/02/18 06:00 Constitutional: Yes: No Distress Cardiovascular: Yes: Regular Rate and Rhythm Respiratory: Yes: Rhonchi Gastrointestinal: Yes: Soft Edema: No Neurological: Yes: Alert Labs: CBC, BMP 05/02/18 05:30 05/02/18 05:30 INR, PTT INR 1.24 (0.83-1.09) H 04/29/18 14:24 - ....Imaging EKG: Image Reviewed Problem List - Problems (1) Acute on chronic diastolic CHF (congestive heart failure) Code(s): I50.33 - ACUTE ON CHRONIC DIASTOLIC (CONGESTIVE) HEART FAILURE (2) Metastatic breast cancer Code(s): C50.919 - MALIGNANT NEOPLASM OF UNSP SITE OF UNSPECIFIED FEMALE BREAST (3) Pneumonia Code(s): J18.9 - PNEUMONIA, UNSPECIFIED ORGANISM Qualifiers: Pneumonia type: due to unspecified organism Laterality: right Lung location: lower lobe of lung Qualified Code(s): J18.1 - Lobar pneumonia, unspecified organism (4) Respiratory failure Code(s): J96.90 - RESPIRATORY FAILURE, UNSP, UNSP W HYPOXIA OR HYPERCAPNIA (5) Cerebral edema Code(s): G93.6 - CEREBRAL EDEMA Assessment/Plan IMP: Metastatic breast cancer Lung consolidations: PNA? vs mets Pleural effusions Acute on chronic diastolic CHF REC: 1. Clinically mildly improved: Decrease Lasix to daily dosing, and decrease Losartan to 50mg as BP trending lower. 2. Supplimental O2 3. DVT prophylaxis as per PMD Will follow
[2018-05-02] MEDS: DEXAMETHASONE 4 MG TABLET (FP) PO SCH ×2 (09:45→21:43)
[2018-05-02] MEDS: POTASSIUM CHLORIDE TABS 20 MEQ TABLET.ER (FP) PO SCH (09:45)
[2018-05-02] MEDS: levETIRAcetam 500 MG TABLET (FP) PO SCH ×2 (09:45→21:43)
[2018-05-02] MEDS: PANTOPRAZOLE 40 MG TABLET (FP) PO SCH (09:45)
[2018-05-02] MEDS: LOSARTAN POTASSIUM 50 MG TABLET (FP) PO SCH (09:45)
[2018-05-02] MEDS: LIDOCAINE 5% TOPICAL PATCH TP SCH (09:46)
[2018-05-02] MEDS: DOCUSATE SODIUM 100 MG CAPSULE (FP) PO SCH (10:15)
--- NOTE | 2018-05-02 10:35 | PN ---
Progress Note, Physician History of Present Illness: PULMONARY ALERT,LESS DYSPNEIC ON BIPAP - Current Medication List Current Medications: Active Medications Acetaminophen (Tylenol -) 650 mg PO Q6H PRN PRN Reason: Fever Or Pain Last Admin: 05/01/18 15:11 Dose: 650 mg Albuterol/Ipratropium (Duoneb -) 1 amp NEB Q6H PRN PRN Reason: SHORTNESS OF BREATH Last Admin: 05/02/18 08:01 Dose: 1 amp Dexamethasone (Decadron -) 4 mg PO BID [facility] Last Admin: 05/02/18 09:45 Dose: 4 mg Docusate Sodium (Colace -) 300 mg PO DAILY [facility] Last Admin: 05/01/18 10:13 Dose: 300 mg Furosemide (Lasix Injection -) 40 mg IVPUSH DAILY [facility] Last Admin: 05/02/18 09:46 Dose: Not Given Heparin Sodium (Porcine) (Heparin -) 5,000 unit SQ TID [facility] Last Admin: 05/02/18 05:52 Dose: 5,000 unit Levofloxacin (Levaquin 500 Mg Premixed Ivpb -) 500 mg in 100 mls @ 100 mls/hr IVPB DAILY [facility]; Protocol Last Admin: 05/02/18 09:44 Dose: 100 mls/hr Piperacillin Sod/Tazobactam (Sod 3.375 gm/ Dextrose) 50 mls @ 100 mls/hr IVPB Q8H-IV [facility]; Protocol Last Admin: 05/02/18 09:44 Dose: 100 mls/hr Insulin Aspart (Novolog Vial Sliding Scale -) 1 vial SQ ACHS [facility]; Protocol Last Admin: 05/02/18 06:17 Dose: 2 units Insulin Detemir (Levemir Vial) 35 units SQ BID@0700,2200 [facility] Last Admin: 05/02/18 06:17 Dose: 35 units Levetiracetam (Keppra -) 500 mg PO BID [facility] Last Admin: 05/02/18 09:45 Dose: 500 mg Levothyroxine Sodium (Synthroid -) 50 mcg PO DAILY@0700 [facility] Last Admin: 05/02/18 06:18 Dose: 50 mcg Lidocaine (Lidoderm Patch -) 1 patch TP DAILY [facility] Last Admin: 05/02/18 09:46 Dose: 1 patch Lorazepam (Ativan Injection -) 0.5 mg IVPUSH Q8H PRN PRN Reason: ANXIETY Last Admin: 05/02/18 05:53 Dose: 0.5 mg Losartan Potassium (Cozaar -) 50 mg PO DAILY [facility] Last Admin: 05/02/18 09:45 Dose: 50 mg Mirtazapine (Remeron -) 15 mg PO HS [facility] Last Admin: 05/01/18 21:27 Dose: 15 mg Miscellaneous (Lidoderm Patch Removal) 1 each MC DAILY@2200 [facility] Last Admin: 05/01/18 22:20 Dose: 1 each Morphine Sulfate (Morphine Sulfate) 2 mg IVPUSH Q6H PRN PRN Reason: PAIN LEVEL 6-10 Pantoprazole Sodium (Protonix -) 40 mg PO DAILY [facility] Last Admin: 05/02/18 09:45 Dose: 40 mg Polyethylene Glycol (Miralax (For Daily Use) -) 17 gm PO TID [facility] Last Admin: 05/02/18 05:52 Dose: 17 gm Potassium Chloride (K-Dur -) 20 meq PO DAILY [facility] Last Admin: 05/02/18 09:45 Dose: 20 meq - Objective Vital Signs: Vital Signs Temperature 98.2 F 05/02/18 06:00 Pulse Rate 108 H 05/02/18 06:00 Respiratory Rate 18 05/02/18 06:00 Blood Pressure 115/73 05/02/18 06:00 O2 Sat by Pulse Oximetry (%) 94 L 05/02/18 09:41 Constitutional: Yes: Well Nourished, Calm Eyes: Yes: WNL HENT: Yes: WNL Neck: Yes: WNL, Other Cardiovascular: Yes: Regular Rate and Rhythm, S1, S2 Respiratory: Yes: On BiPap, Rhonchi (FEW RHONCHI) Gastrointestinal: Yes: Normal Bowel Sounds, Soft Extremities: Yes: WNL Edema: No Labs: CBC, BMP 05/02/18 05:30 05/02/18 05:30 INR, PTT INR 1.24 (0.83-1.09) H 04/29/18 14:24 Assessment/Plan Problem List - Problems (1) Acute on chronic diastolic CHF (congestive heart failure) Code(s): I50.33 - ACUTE ON CHRONIC DIASTOLIC (CONGESTIVE) HEART FAILURE (2) Metastatic breast cancer Code(s): C50.919 - MALIGNANT NEOPLASM OF UNSP SITE OF UNSPECIFIED FEMALE BREAST (3) Pneumonia Code(s): J18.9 - PNEUMONIA, UNSPECIFIED ORGANISM Qualifiers: Pneumonia type: due to unspecified organism Laterality: right Lung location: lower lobe of lung Qualified Code(s): J18.1 - Lobar pneumonia, unspecified organism (4) Anemia Code(s): D64.9 - ANEMIA, UNSPECIFIED Qualifiers: Anemia type: unspecified type Qualified Code(s): D64.9 - Anemia, unspecified (5) Back pain Code(s): M54.9 - DORSALGIA, UNSPECIFIED Qualifiers: Back pain location: back pain in other location Chronicity: chronic Qualified Code(s): M54.9 - Dorsalgia, unspecified; G89.29 - Other chronic pain (6) Breast CA Code(s): C50.919 - MALIGNANT NEOPLASM OF UNSP SITE OF UNSPECIFIED FEMALE BREAST Qualifiers: Breast location: overlapping sites of breast Laterality: right (7) Diabetes Code(s): E11.9 - TYPE 2 DIABETES MELLITUS WITHOUT COMPLICATIONS Qualifiers: Diabetes mellitus type: type 2 Diabetes mellitus complication status: without complication (8) Generalized weakness Code(s): R53.1 - WEAKNESS (9) Hypertension Code(s): I10 - ESSENTIAL (PRIMARY) HYPERTENSION (10) Hypothyroidism Code(s): E03.9 - HYPOTHYROIDISM, UNSPECIFIED (11) Intracranial mass Code(s): R90.0 - INTCRN SPACE-OCCUPYING LESION FOUND ON DX IMAGING OF CNSL Assessment/Plan Lasix empiric ABX for possible PNA O2 as needed to maintain saturation BD TX PRN NIPPV as needed Should consider P Care evaluation for GOC Daily weight DR COLLINS
--- NOTE | 2018-05-02 13:03 | PN ---
Progress Note, Physician History of Present Illness: dyspnoea improving patient still needing bipap support currently on bipap - Current Medication List Current Medications: Active Medications Acetaminophen (Tylenol -) 650 mg PO Q6H PRN PRN Reason: Fever Or Pain Last Admin: 05/01/18 15:11 Dose: 650 mg Albuterol/Ipratropium (Duoneb -) 1 amp NEB Q6H PRN PRN Reason: SHORTNESS OF BREATH Last Admin: 05/02/18 08:01 Dose: 1 amp Dexamethasone (Decadron -) 4 mg PO BID [facility] Last Admin: 05/02/18 09:45 Dose: 4 mg Docusate Sodium (Colace -) 300 mg PO DAILY [facility] Last Admin: 05/01/18 10:13 Dose: 300 mg Furosemide (Lasix Injection -) 40 mg IVPUSH DAILY [facility] Last Admin: 05/02/18 09:46 Dose: Not Given Heparin Sodium (Porcine) (Heparin -) 5,000 unit SQ TID [facility] Last Admin: 05/02/18 05:52 Dose: 5,000 unit Piperacillin Sod/Tazobactam (Sod 3.375 gm/ Dextrose) 50 mls @ 100 mls/hr IVPB Q8H-IV [facility]; Protocol Last Admin: 05/02/18 09:44 Dose: 100 mls/hr Insulin Aspart (Novolog Vial Sliding Scale -) 1 vial SQ ACHS [facility]; Protocol Last Admin: 05/02/18 06:17 Dose: 2 units Insulin Detemir (Levemir Vial) 35 units SQ BID@0700,2200 [facility] Last Admin: 05/02/18 06:17 Dose: 35 units Levetiracetam (Keppra -) 500 mg PO BID [facility] Last Admin: 05/02/18 09:45 Dose: 500 mg Levothyroxine Sodium (Synthroid -) 50 mcg PO DAILY@0700 [facility] Last Admin: 05/02/18 06:18 Dose: 50 mcg Lidocaine (Lidoderm Patch -) 1 patch TP DAILY [facility] Last Admin: 05/02/18 09:46 Dose: 1 patch Lorazepam (Ativan Injection -) 0.5 mg IVPUSH Q8H PRN PRN Reason: ANXIETY Last Admin: 05/02/18 05:53 Dose: 0.5 mg Losartan Potassium (Cozaar -) 50 mg PO DAILY [facility] Last Admin: 05/02/18 09:45 Dose: 50 mg Mirtazapine (Remeron -) 15 mg PO HS [facility] Last Admin: 05/01/18 21:27 Dose: 15 mg Miscellaneous (Lidoderm Patch Removal) 1 each MC DAILY@2200 [facility] Last Admin: 05/01/18 22:20 Dose: 1 each Morphine Sulfate (Morphine Sulfate) 2 mg IVPUSH Q6H PRN PRN Reason: PAIN LEVEL 6-10 Pantoprazole Sodium (Protonix -) 40 mg PO DAILY [facility] Last Admin: 05/02/18 09:45 Dose: 40 mg Polyethylene Glycol (Miralax (For Daily Use) -) 17 gm PO TID [facility] Last Admin: 05/02/18 05:52 Dose: 17 gm Potassium Chloride (K-Dur -) 20 meq PO DAILY [facility] Last Admin: 05/02/18 09:45 Dose: 20 meq - Objective Vital Signs: Vital Signs Temperature 98.1 F 05/02/18 10:00 Pulse Rate 107 H 05/02/18 10:00 Respiratory Rate 18 05/02/18 10:00 Blood Pressure 101/60 05/02/18 10:00 O2 Sat by Pulse Oximetry (%) 94 L 05/02/18 09:41 Constitutional: Yes: No Distress, Calm Cardiovascular: Yes: S1, S2 Respiratory: Yes: On BiPap Gastrointestinal: Yes: Normal Bowel Sounds, Soft Musculoskeletal: Yes: WNL Extremities: Yes: WNL Neurological: Yes: Alert, Oriented Psychiatric: Yes: Alert Labs: CBC, BMP 05/02/18 05:30 05/02/18 05:30 INR, PTT INR 1.24 (0.83-1.09) H 04/29/18 14:24 Assessment/Plan Problem List - Problems (1) Pneumonia Code(s): J18.9 - PNEUMONIA, UNSPECIFIED ORGANISM Qualifiers: Pneumonia type: due to unspecified organism Laterality: right Lung location: lower lobe of lung Qualified Code(s): J18.1 - Lobar pneumonia, unspecified organism (2) Respiratory failure Code(s): J96.90 - RESPIRATORY FAILURE, UNSP, UNSP W HYPOXIA OR HYPERCAPNIA (3) Metastatic breast cancer Code(s): C50.919 - MALIGNANT NEOPLASM OF UNSP SITE OF UNSPECIFIED FEMALE BREAST (4) Diabetes Code(s): E11.9 - TYPE 2 DIABETES MELLITUS WITHOUT COMPLICATIONS Qualifiers: Diabetes mellitus type: type 2 Diabetes mellitus complication status: without complication (5) Hypertension Code(s): I10 - ESSENTIAL (PRIMARY) HYPERTENSION (6) Hypothyroidism Code(s): E03.9 - HYPOTHYROIDISM, UNSPECIFIED (7) Vasogenic cerebral edema Code(s): G93.6 - CEREBRAL EDEMA patient receive iv abx plan continue abx will deescalate in couple of days resp support rest as per the team await for all cx reports
[2018-05-02] MEDS: MIRTAZAPINE 15 MG TABLET (FP) PO SCH (21:43)
[2018-05-02] MEDS: LIDOCAINE PATCH REMOVAL MC SCH (21:44)
--- NOTE | 2018-05-02 22:39 | PN ---
Progress Note, Physician History of Present Illness: No new changes - Current Medication List Current Medications: Active Medications Acetaminophen (Tylenol -) 650 mg PO Q6H PRN PRN Reason: Fever Or Pain Last Admin: 05/01/18 15:11 Dose: 650 mg Albuterol/Ipratropium (Duoneb -) 1 amp NEB Q6H PRN PRN Reason: SHORTNESS OF BREATH Last Admin: 05/02/18 08:01 Dose: 1 amp Dexamethasone (Decadron -) 4 mg PO BID [facility] Last Admin: 05/02/18 21:43 Dose: 4 mg Docusate Sodium (Colace -) 300 mg PO DAILY [facility] Last Admin: 05/02/18 10:15 Dose: Not Given Furosemide (Lasix Injection -) 40 mg IVPUSH DAILY [facility] Last Admin: 05/02/18 09:46 Dose: Not Given Heparin Sodium (Porcine) (Heparin -) 5,000 unit SQ TID [facility] Last Admin: 05/02/18 21:43 Dose: 5,000 unit Piperacillin Sod/Tazobactam (Sod 3.375 gm/ Dextrose) 50 mls @ 100 mls/hr IVPB Q8H-IV [facility]; Protocol Last Admin: 05/02/18 18:23 Dose: 100 mls/hr Insulin Aspart (Novolog Vial Sliding Scale -) 1 vial SQ ACHS [facility]; Protocol Last Admin: 05/02/18 22:04 Dose: 2 units Insulin Detemir (Levemir Vial) 35 units SQ BID@0700,2200 [facility] Last Admin: 05/02/18 22:03 Dose: 35 units Levetiracetam (Keppra -) 500 mg PO BID [facility] Last Admin: 05/02/18 21:43 Dose: 500 mg Levothyroxine Sodium (Synthroid -) 50 mcg PO DAILY@0700 [facility] Last Admin: 05/02/18 06:18 Dose: 50 mcg Lidocaine (Lidoderm Patch -) 1 patch TP DAILY [facility] Last Admin: 05/02/18 09:46 Dose: 1 patch Lorazepam (Ativan Injection -) 0.5 mg IVPUSH Q8H PRN PRN Reason: ANXIETY Last Admin: 05/02/18 20:39 Dose: 0.5 mg Losartan Potassium (Cozaar -) 50 mg PO DAILY [facility] Last Admin: 05/02/18 09:45 Dose: 50 mg Mirtazapine (Remeron -) 15 mg PO HS [facility] Last Admin: 05/02/18 21:43 Dose: 15 mg Miscellaneous (Lidoderm Patch Removal) 1 each MC DAILY@2200 [facility] Last Admin: 05/02/18 21:44 Dose: 1 each Morphine Sulfate (Morphine Sulfate) 2 mg IVPUSH Q6H PRN PRN Reason: PAIN LEVEL 6-10 Pantoprazole Sodium (Protonix -) 40 mg PO DAILY [facility] Last Admin: 05/02/18 09:45 Dose: 40 mg Polyethylene Glycol (Miralax (For Daily Use) -) 17 gm PO TID [facility] Last Admin: 05/02/18 22:05 Dose: 17 gm Potassium Chloride (K-Dur -) 20 meq PO DAILY [facility] Last Admin: 05/02/18 09:45 Dose: 20 meq - Objective Vital Signs: Vital Signs Temperature 99.4 F 05/02/18 21:00 Pulse Rate 112 H 05/02/18 21:00 Respiratory Rate 20 05/02/18 21:00 Blood Pressure 143/59 L 05/02/18 21:00 O2 Sat by Pulse Oximetry (%) 100 05/02/18 16:15 Neck: Yes: WNL, Supple Cardiovascular: Yes: WNL, Regular Rate and Rhythm Respiratory: Yes: WNL, Regular, CTA Bilaterally Gastrointestinal: Yes: WNL, Normal Bowel Sounds, Soft Labs: CBC, BMP 05/02/18 05:30 05/02/18 05:30 INR, PTT INR 1.24 (0.83-1.09) H 04/29/18 14:24 Problem List - Problems (1) Pneumonia Assessment/Plan: Cont IV levaquin Cont nebulizers Code(s): J18.9 - PNEUMONIA, UNSPECIFIED ORGANISM Qualifiers: Pneumonia type: due to unspecified organism Laterality: right Lung location: lower lobe of lung Qualified Code(s): J18.1 - Lobar pneumonia, unspecified organism (2) Respiratory failure Assessment/Plan: Multifactorial Lung mets/infitrate/effusions Cont nebulizers Code(s): J96.90 - RESPIRATORY FAILURE, UNSP, UNSP W HYPOXIA OR HYPERCAPNIA (3) Metastatic breast cancer Assessment/Plan: Palliative care consult Code(s): C50.919 - MALIGNANT NEOPLASM OF UNSP SITE OF UNSPECIFIED FEMALE BREAST (4) Diabetes Code(s): E11.9 - TYPE 2 DIABETES MELLITUS WITHOUT COMPLICATIONS Qualifiers: Diabetes mellitus type: type 2 Diabetes mellitus complication status: without complication (5) Hypertension Code(s): I10 - ESSENTIAL (PRIMARY) HYPERTENSION (6) Hypothyroidism Code(s): E03.9 - HYPOTHYROIDISM, UNSPECIFIED (7) Vasogenic cerebral edema Code(s): G93.6 - CEREBRAL EDEMA
[2018-05-03] MEDS ORDERED: PIPERACILLIN/TAZOBACTAM 3.375 GM VIAL IVPB ONE ×3 (01:07→16:54)
[2018-05-03] MEDS ORDERED: DEXTROSE 5%-WATER - 50 ML IVPB ONE ×3 (01:08→16:55)
[2018-05-03] MEDS: PIPERACILLIN/TAZOB 3.375 GM 3.375 GM in DEXTROSE 5%-WATER - 50 ML IVPB SCH ×3 (01:18→17:00)
[2018-05-03] MEDS: HEPARIN NA (PORCINE) 5,000 UNITS/ML 1ML VIAL SQ SCH ×3 (06:06→22:07)
[2018-05-03] MEDS: POLYETHYLENE GLYCOL 3350 119 GM BTL PO SCH ×3 (06:06→22:33)
[2018-05-03] MEDS: LEVOTHYROXINE NA 50 MCG TABLET (FP) PO SCH (06:07)
[2018-05-03] MEDS: INSULIN SLIDING SCALE (NOVOLOG) 1 VIAL SQ SCH ×4 (06:37→22:34)
[2018-05-03] MEDS: INSULIN (LEVEMIR) 100 UNITS/ML UNITS SQ SCH ×2 (06:37→22:28)
[2018-05-03] MEDS: ALBUTEROL SO4 2.5/IPRATROPIUM 0.5 INH SOL 3 ML VIAL.NEB. NEB PRN (07:42)
[2018-05-03] MEDS: FUROSEMIDE 40 MG/4 ML INJECTABLE VIAL IVPUSH SCH (09:27)
[2018-05-03] MEDS: PANTOPRAZOLE 40 MG TABLET (FP) PO SCH (09:28)
[2018-05-03] MEDS: levETIRAcetam 500 MG TABLET (FP) PO SCH ×2 (09:28→22:07)
[2018-05-03] MEDS: LOSARTAN POTASSIUM 50 MG TABLET (FP) PO SCH (09:28)
[2018-05-03] MEDS: POTASSIUM CHLORIDE TABS 20 MEQ TABLET.ER (FP) PO SCH (09:28)
[2018-05-03] MEDS: LIDOCAINE 5% TOPICAL PATCH TP SCH (09:28)
[2018-05-03] MEDS: DEXAMETHASONE 4 MG TABLET (FP) PO SCH ×2 (09:28→22:07)
[2018-05-03] MEDS: DOCUSATE SODIUM 100 MG CAPSULE (FP) PO SCH (09:29)
--- NOTE | 2018-05-03 09:31 | PN ---
Progress Note, Physician Chief Complaint: resting comfortably TELE: [facility] - Current Medication List Current Medications: Active Medications Acetaminophen (Tylenol -) 650 mg PO Q6H PRN PRN Reason: Fever Or Pain Last Admin: 05/01/18 15:11 Dose: 650 mg Albuterol/Ipratropium (Duoneb -) 1 amp NEB Q6H PRN PRN Reason: SHORTNESS OF BREATH Last Admin: 05/03/18 07:42 Dose: 1 amp Dexamethasone (Decadron -) 4 mg PO BID [facility] Last Admin: 05/03/18 09:28 Dose: 4 mg Docusate Sodium (Colace -) 300 mg PO DAILY [facility] Last Admin: 05/03/18 09:29 Dose: Not Given Furosemide (Lasix Injection -) 40 mg IVPUSH DAILY [facility] Last Admin: 05/03/18 09:27 Dose: 40 mg Heparin Sodium (Porcine) (Heparin -) 5,000 unit SQ TID [facility] Last Admin: 05/03/18 06:06 Dose: 5,000 unit Piperacillin Sod/Tazobactam (Sod 3.375 gm/ Dextrose) 50 mls @ 100 mls/hr IVPB Q8H-IV [facility]; Protocol Last Admin: 05/03/18 09:27 Dose: 100 mls/hr Insulin Aspart (Novolog Vial Sliding Scale -) 1 vial SQ ACHS [facility]; Protocol Last Admin: 05/03/18 06:37 Dose: Not Given Insulin Detemir (Levemir Vial) 35 units SQ BID@0700,2200 [facility] Last Admin: 05/03/18 06:37 Dose: 35 units Levetiracetam (Keppra -) 500 mg PO BID [facility] Last Admin: 05/03/18 09:28 Dose: 500 mg Levothyroxine Sodium (Synthroid -) 50 mcg PO DAILY@0700 [facility] Last Admin: 05/03/18 06:07 Dose: 50 mcg Lidocaine (Lidoderm Patch -) 1 patch TP DAILY [facility] Last Admin: 05/03/18 09:28 Dose: 1 patch Lorazepam (Ativan Injection -) 0.5 mg IVPUSH Q8H PRN PRN Reason: ANXIETY Last Admin: 05/02/18 20:39 Dose: 0.5 mg Losartan Potassium (Cozaar -) 50 mg PO DAILY [facility] Last Admin: 05/03/18 09:28 Dose: 50 mg Mirtazapine (Remeron -) 15 mg PO HS [facility] Last Admin: 05/02/18 21:43 Dose: 15 mg Miscellaneous (Lidoderm Patch Removal) 1 each MC DAILY@2200 [facility] Last Admin: 05/02/18 21:44 Dose: 1 each Morphine Sulfate (Morphine Sulfate) 2 mg IVPUSH Q6H PRN PRN Reason: PAIN LEVEL 6-10 Pantoprazole Sodium (Protonix -) 40 mg PO DAILY [facility] Last Admin: 05/03/18 09:28 Dose: 40 mg Polyethylene Glycol (Miralax (For Daily Use) -) 17 gm PO TID [facility] Last Admin: 05/03/18 06:06 Dose: 17 gm Potassium Chloride (K-Dur -) 20 meq PO DAILY [facility] Last Admin: 05/03/18 09:28 Dose: 20 meq - Objective Vital Signs: Vital Signs Temperature 98.1 F 05/03/18 09:04 Pulse Rate 107 H 05/03/18 09:04 Respiratory Rate 18 05/03/18 09:04 Blood Pressure 101/60 05/03/18 09:04 O2 Sat by Pulse Oximetry (%) 97 05/03/18 07:42 Constitutional: Yes: Well Nourished Eyes: Yes: Conjunctiva Clear Cardiovascular: Yes: Regular Rate and Rhythm Respiratory: Yes: Rhonchi Gastrointestinal: Yes: Soft Edema: Yes Edema: LLE: 1+, RLE: 1+ Neurological: Yes: Alert Labs: CBC, BMP 05/02/18 05:30 05/02/18 05:30 INR, PTT INR 1.24 (0.83-1.09) H 04/29/18 14:24 Microbiology 04/29/18 14:24 Blood - Peripheral Venous Blood Culture - Preliminary NO GROWTH OBTAINED AFTER 72 HOURS, INCUBATION TO CONTINUE FOR 2 DAYS. 04/29/18 14:24 Blood - Peripheral Venous Blood Culture - Preliminary NO GROWTH OBTAINED AFTER 72 HOURS, INCUBATION TO CONTINUE FOR 2 DAYS. Laboratory Tests 05/01/18 05/02/18 05/02/18 13:25 05:30 05:30 WBC 10.1 H Hgb 8.9 L Plt Count 383 Sodium 145 Potassium 3.7 BUN 20 H Creatinine 0.7 Troponin I < 0.02 0.02 - ....Imaging EKG: Image Reviewed Problem List - Problems (1) Acute on chronic diastolic CHF (congestive heart failure) Code(s): I50.33 - ACUTE ON CHRONIC DIASTOLIC (CONGESTIVE) HEART FAILURE (2) Metastatic breast cancer Code(s): C50.919 - MALIGNANT NEOPLASM OF UNSP SITE OF UNSPECIFIED FEMALE BREAST (3) Pneumonia Code(s): J18.9 - PNEUMONIA, UNSPECIFIED ORGANISM Qualifiers: Pneumonia type: due to unspecified organism Laterality: right Lung location: lower lobe of lung Qualified Code(s): J18.1 - Lobar pneumonia, unspecified organism (4) Respiratory failure Code(s): J96.90 - RESPIRATORY FAILURE, UNSP, UNSP W HYPOXIA OR HYPERCAPNIA (5) Cerebral edema Code(s): G93.6 - CEREBRAL EDEMA Assessment/Plan IMP: Metastatic breast cancer Lung consolidations: PNA? vs mets Pleural effusions Acute on chronic diastolic CHF REC: 1. Clinically mildly improved: Decrease Lasix to daily dosing, and d/c Losartan as BP does not require meds 2. Supplimental O2 3. DVT prophylaxis as per PMD
[2018-05-03] MEDS: ACETAMINOPHEN 325 MG TABLET (FP) PO PRN ×2 (10:44→19:41)
--- NOTE | 2018-05-03 10:51 | PN ---
Progress Note, Physician History of Present Illness: PULMONARY AWAKE,AGITATED,-RESP DISTRESS ON NASAL CANNULA - Current Medication List Current Medications: Active Medications Acetaminophen (Tylenol -) 650 mg PO Q6H PRN PRN Reason: Fever Or Pain Last Admin: 05/01/18 15:11 Dose: 650 mg Albuterol/Ipratropium (Duoneb -) 1 amp NEB Q6H PRN PRN Reason: SHORTNESS OF BREATH Last Admin: 05/03/18 07:42 Dose: 1 amp Dexamethasone (Decadron -) 4 mg PO BID [facility] Last Admin: 05/03/18 09:28 Dose: 4 mg Docusate Sodium (Colace -) 300 mg PO DAILY [facility] Last Admin: 05/03/18 09:29 Dose: Not Given Furosemide (Lasix Injection -) 40 mg IVPUSH DAILY [facility] Last Admin: 05/03/18 09:27 Dose: 40 mg Heparin Sodium (Porcine) (Heparin -) 5,000 unit SQ TID [facility] Last Admin: 05/03/18 06:06 Dose: 5,000 unit Piperacillin Sod/Tazobactam (Sod 3.375 gm/ Dextrose) 50 mls @ 100 mls/hr IVPB Q8H-IV [facility]; Protocol Last Admin: 05/03/18 09:27 Dose: 100 mls/hr Insulin Aspart (Novolog Vial Sliding Scale -) 1 vial SQ ACHS [facility]; Protocol Last Admin: 05/03/18 06:37 Dose: Not Given Insulin Detemir (Levemir Vial) 35 units SQ BID@0700,2200 [facility] Last Admin: 05/03/18 06:37 Dose: 35 units Levetiracetam (Keppra -) 500 mg PO BID [facility] Last Admin: 05/03/18 09:28 Dose: 500 mg Levothyroxine Sodium (Synthroid -) 50 mcg PO DAILY@0700 [facility] Last Admin: 05/03/18 06:07 Dose: 50 mcg Lidocaine (Lidoderm Patch -) 1 patch TP DAILY [facility] Last Admin: 05/03/18 09:28 Dose: 1 patch Lorazepam (Ativan Injection -) 0.5 mg IVPUSH Q8H PRN PRN Reason: ANXIETY Last Admin: 05/02/18 20:39 Dose: 0.5 mg Mirtazapine (Remeron -) 15 mg PO HS [facility] Last Admin: 05/02/18 21:43 Dose: 15 mg Miscellaneous (Lidoderm Patch Removal) 1 each MC DAILY@2200 [facility] Last Admin: 05/02/18 21:44 Dose: 1 each Morphine Sulfate (Morphine Sulfate) 2 mg IVPUSH Q6H PRN PRN Reason: PAIN LEVEL 6-10 Pantoprazole Sodium (Protonix -) 40 mg PO DAILY [facility] Last Admin: 05/03/18 09:28 Dose: 40 mg Polyethylene Glycol (Miralax (For Daily Use) -) 17 gm PO TID [facility] Last Admin: 05/03/18 06:06 Dose: 17 gm Potassium Chloride (K-Dur -) 20 meq PO DAILY [facility] Last Admin: 05/03/18 09:28 Dose: 20 meq - Objective Vital Signs: Vital Signs Temperature 98.1 F 05/03/18 09:04 Pulse Rate 107 H 05/03/18 09:04 Respiratory Rate 18 05/03/18 09:04 Blood Pressure 101/60 05/03/18 09:04 O2 Sat by Pulse Oximetry (%) 97 05/03/18 07:42 Constitutional: Yes: Well Nourished, Other (AGITATED) Eyes: Yes: WNL HENT: Yes: WNL Neck: Yes: WNL Cardiovascular: Yes: Regular Rate and Rhythm, S1, S2 Respiratory: Yes: Rhonchi (SCATTERED JOSE RAMON RHONCHI) Gastrointestinal: Yes: Normal Bowel Sounds, Soft Extremities: Yes: WNL Edema: Yes Labs: CBC, BMP Assessment/Plan Problem List - Problems (1) Acute on chronic diastolic CHF (congestive heart failure) Code(s): I50.33 - ACUTE ON CHRONIC DIASTOLIC (CONGESTIVE) HEART FAILURE (2) Metastatic breast cancer Code(s): C50.919 - MALIGNANT NEOPLASM OF [facility] SITE OF UNSPECIFIED FEMALE BREAST (3) Pneumonia Code(s): J18.9 - PNEUMONIA, UNSPECIFIED ORGANISM Qualifiers: Pneumonia type: due to unspecified organism Laterality: right Lung location: lower lobe of lung Qualified Code(s): J18.1 - Lobar pneumonia, unspecified organism (4) Anemia Code(s): D64.9 - ANEMIA, UNSPECIFIED Qualifiers: Anemia type: unspecified type Qualified Code(s): D64.9 - Anemia, unspecified (5) Back pain Code(s): M54.9 - DORSALGIA, UNSPECIFIED Qualifiers: Back pain location: back pain in other location Chronicity: chronic Qualified Code(s): M54.9 - Dorsalgia, unspecified; G89.29 - Other chronic pain (6) Breast CA Code(s): C50.919 - MALIGNANT NEOPLASM OF UNSP SITE OF UNSPECIFIED FEMALE BREAST Qualifiers: Breast location: overlapping sites of breast Laterality: right (7) Diabetes Code(s): E11.9 - TYPE 2 DIABETES MELLITUS WITHOUT COMPLICATIONS Qualifiers: Diabetes mellitus type: type 2 Diabetes mellitus complication status: without complication (8) Generalized weakness Code(s): R53.1 - WEAKNESS (9) Hypertension Code(s): I10 - ESSENTIAL (PRIMARY) HYPERTENSION (10) Hypothyroidism Code(s): E03.9 - HYPOTHYROIDISM, UNSPECIFIED (11) Intracranial mass Code(s): R90.0 - INTCRN SPACE-OCCUPYING LESION FOUND ON DX IMAGING OF CNSL Assessment/Plan Lasix empiric ABX for possible PNA O2 as needed to maintain saturation BD TX PRN NIPPV as needed Should consider P Care evaluation for GOC Daily weight Analgesics DR COLLINS
--- NOTE | 2018-05-03 14:05 | PN ---
Progress Note, Physician History of Present Illness: on nasal canula family in room says she does not feel too good - Current Medication List Current Medications: Active Medications Acetaminophen (Tylenol -) 650 mg PO Q6H PRN PRN Reason: Fever Or Pain Last Admin: 05/03/18 10:44 Dose: 650 mg Albuterol/Ipratropium (Duoneb -) 1 amp NEB Q6H PRN PRN Reason: SHORTNESS OF BREATH Last Admin: 05/03/18 07:42 Dose: 1 amp Dexamethasone (Decadron -) 4 mg PO BID [facility] Last Admin: 05/03/18 09:28 Dose: 4 mg Docusate Sodium (Colace -) 300 mg PO DAILY [facility] Last Admin: 05/03/18 09:29 Dose: Not Given Furosemide (Lasix Injection -) 40 mg IVPUSH DAILY [facility] Last Admin: 05/03/18 09:27 Dose: 40 mg Heparin Sodium (Porcine) (Heparin -) 5,000 unit SQ TID [facility] Last Admin: 05/03/18 14:00 Dose: 5,000 unit Piperacillin Sod/Tazobactam (Sod 3.375 gm/ Dextrose) 50 mls @ 100 mls/hr IVPB Q8H-IV [facility]; Protocol Last Admin: 05/03/18 09:27 Dose: 100 mls/hr Insulin Aspart (Novolog Vial Sliding Scale -) 1 vial SQ ACHS [facility]; Protocol Last Admin: 05/03/18 11:10 Dose: Not Given Insulin Detemir (Levemir Vial) 35 units SQ BID@0700,2200 [facility] Last Admin: 05/03/18 06:37 Dose: 35 units Levetiracetam (Keppra -) 500 mg PO BID [facility] Last Admin: 05/03/18 09:28 Dose: 500 mg Levothyroxine Sodium (Synthroid -) 50 mcg PO DAILY@0700 [facility] Last Admin: 05/03/18 06:07 Dose: 50 mcg Lidocaine (Lidoderm Patch -) 1 patch TP DAILY [facility] Last Admin: 05/03/18 09:28 Dose: 1 patch Lorazepam (Ativan Injection -) 0.5 mg IVPUSH Q8H PRN PRN Reason: ANXIETY Last Admin: 05/02/18 20:39 Dose: 0.5 mg Mirtazapine (Remeron -) 15 mg PO HS [facility] Last Admin: 05/02/18 21:43 Dose: 15 mg Miscellaneous (Lidoderm Patch Removal) 1 each MC DAILY@2200 [facility] Last Admin: 05/02/18 21:44 Dose: 1 each Morphine Sulfate (Morphine Sulfate) 2 mg IVPUSH Q6H PRN PRN Reason: PAIN LEVEL 6-10 Pantoprazole Sodium (Protonix -) 40 mg PO DAILY [facility] Last Admin: 05/03/18 09:28 Dose: 40 mg Polyethylene Glycol (Miralax (For Daily Use) -) 17 gm PO TID [facility] Last Admin: 05/03/18 14:00 Dose: 17 gm Potassium Chloride (K-Dur -) 20 meq PO DAILY [facility] Last Admin: 05/03/18 09:28 Dose: 20 meq - Objective Vital Signs: Vital Signs Temperature 98.1 F 05/03/18 09:04 Pulse Rate 107 H 05/03/18 09:04 Respiratory Rate 18 05/03/18 09:04 Blood Pressure 101/60 05/03/18 09:04 O2 Sat by Pulse Oximetry (%) 97 05/03/18 07:42 Constitutional: Yes: Anxious, Mild Distress Cardiovascular: Yes: S1, S2 Respiratory: Yes: On Nasal O2, Poor Air Entry Gastrointestinal: Yes: Normal Bowel Sounds, Soft Musculoskeletal: Yes: WNL Extremities: Yes: WNL Neurological: Yes: Alert, Oriented Psychiatric: Yes: Alert Labs: CBC, BMP 05/02/18 05:30 05/02/18 05:30 INR, PTT INR 1.24 (0.83-1.09) H 04/29/18 14:24 Assessment/Plan Problem List - Problems (1) Pneumonia Code(s): J18.9 - PNEUMONIA, UNSPECIFIED ORGANISM Qualifiers: Pneumonia type: due to unspecified organism Laterality: right Lung location: lower lobe of lung Qualified Code(s): J18.1 - Lobar pneumonia, unspecified organism (2) Respiratory failure Code(s): J96.90 - RESPIRATORY FAILURE, UNSP, UNSP W HYPOXIA OR HYPERCAPNIA (3) Metastatic breast cancer Code(s): C50.919 - MALIGNANT NEOPLASM OF UNSP SITE OF UNSPECIFIED FEMALE BREAST (4) Diabetes Code(s): E11.9 - TYPE 2 DIABETES MELLITUS WITHOUT COMPLICATIONS Qualifiers: Diabetes mellitus type: type 2 Diabetes mellitus complication status: without complication (5) Hypertension Code(s): I10 - ESSENTIAL (PRIMARY) HYPERTENSION (6) Hypothyroidism Code(s): E03.9 - HYPOTHYROIDISM, UNSPECIFIED (7) Vasogenic cerebral edema Code(s): G93.6 - CEREBRAL EDEMA patient receive iv abx plan continue abx will deescalate in couple of days resp support rest as per the team await for all cx reports
[2018-05-03] MEDS: LORazepam 2 MG/ML SDV VIAL IVPUSH PRN (19:41)
[2018-05-03] MEDS: MIRTAZAPINE 15 MG TABLET (FP) PO SCH (22:07)
[2018-05-03] MEDS: LIDOCAINE PATCH REMOVAL MC SCH (22:28)
--- NOTE | 2018-05-03 23:22 | PN ---
Progress Note, Physician - Current Medication List Current Medications: Active Medications Acetaminophen (Tylenol -) 650 mg PO Q6H PRN PRN Reason: Fever Or Pain Last Admin: 05/03/18 19:41 Dose: 650 mg Albuterol/Ipratropium (Duoneb -) 1 amp NEB Q6H PRN PRN Reason: SHORTNESS OF BREATH Last Admin: 05/03/18 07:42 Dose: 1 amp Dexamethasone (Decadron -) 4 mg PO BID [facility] Last Admin: 05/03/18 22:07 Dose: 4 mg Docusate Sodium (Colace -) 300 mg PO DAILY [facility] Last Admin: 05/03/18 09:29 Dose: Not Given Furosemide (Lasix Injection -) 40 mg IVPUSH DAILY [facility] Last Admin: 05/03/18 09:27 Dose: 40 mg Heparin Sodium (Porcine) (Heparin -) 5,000 unit SQ TID [facility] Last Admin: 05/03/18 22:07 Dose: 5,000 unit Piperacillin Sod/Tazobactam (Sod 3.375 gm/ Dextrose) 50 mls @ 100 mls/hr IVPB Q8H-IV [facility]; Protocol Last Admin: 05/03/18 17:00 Dose: 100 mls/hr Insulin Aspart (Novolog Vial Sliding Scale -) 1 vial SQ ACHS [facility]; Protocol Last Admin: 05/03/18 16:59 Dose: 4 units Insulin Detemir (Levemir Vial) 35 units SQ BID@0700,2200 [facility] Last Admin: 05/03/18 22:28 Dose: 35 units Levetiracetam (Keppra -) 500 mg PO BID [facility] Last Admin: 05/03/18 22:07 Dose: 500 mg Levothyroxine Sodium (Synthroid -) 50 mcg PO DAILY@0700 [facility] Last Admin: 05/03/18 06:07 Dose: 50 mcg Lidocaine (Lidoderm Patch -) 1 patch TP DAILY [facility] Last Admin: 05/03/18 09:28 Dose: 1 patch Lorazepam (Ativan Injection -) 0.5 mg IVPUSH Q8H PRN PRN Reason: ANXIETY Last Admin: 05/03/18 19:41 Dose: 0.5 mg Mirtazapine (Remeron -) 15 mg PO HS [facility] Last Admin: 05/03/18 22:07 Dose: 15 mg Miscellaneous (Lidoderm Patch Removal) 1 each MC DAILY@2200 [facility] Last Admin: 05/03/18 22:28 Dose: 1 each Morphine Sulfate (Morphine Sulfate) 2 mg IVPUSH Q6H PRN PRN Reason: PAIN LEVEL 6-10 Pantoprazole Sodium (Protonix -) 40 mg PO DAILY [facility] Last Admin: 05/03/18 09:28 Dose: 40 mg Polyethylene Glycol (Miralax (For Daily Use) -) 17 gm PO TID [facility] Last Admin: 05/03/18 14:00 Dose: 17 gm Potassium Chloride (K-Dur -) 20 meq PO DAILY [facility] Last Admin: 05/03/18 09:28 Dose: 20 meq - Objective Vital Signs: Vital Signs Temperature 97.4 F L 05/03/18 20:10 Pulse Rate 118 H 05/03/18 20:10 Respiratory Rate 20 05/03/18 20:10 Blood Pressure 122/42 L 05/03/18 20:10 O2 Sat by Pulse Oximetry (%) 100 05/03/18 20:10 Labs: CBC, BMP 05/02/18 05:30 05/02/18 05:30 INR, PTT INR 1.24 (0.83-1.09) H 04/29/18 14:24 Problem List - Problems (1) Pneumonia Code(s): J18.9 - PNEUMONIA, UNSPECIFIED ORGANISM Qualifiers: Pneumonia type: due to unspecified organism Laterality: right Lung location: lower lobe of lung Qualified Code(s): J18.1 - Lobar pneumonia, unspecified organism (2) Respiratory failure Code(s): J96.90 - RESPIRATORY FAILURE, UNSP, UNSP W HYPOXIA OR HYPERCAPNIA (3) Metastatic breast cancer Code(s): C50.919 - MALIGNANT NEOPLASM OF UNSP SITE OF UNSPECIFIED FEMALE BREAST (4) Diabetes Code(s): E11.9 - TYPE 2 DIABETES MELLITUS WITHOUT COMPLICATIONS Qualifiers: Diabetes mellitus type: type 2 Diabetes mellitus complication status: without complication (5) Hypertension Code(s): I10 - ESSENTIAL (PRIMARY) HYPERTENSION (6) Hypothyroidism Code(s): E03.9 - HYPOTHYROIDISM, UNSPECIFIED (7) Vasogenic cerebral edema Code(s): G93.6 - CEREBRAL EDEMA
[2018-05-04] MEDS: PIPERACILLIN/TAZOB 3.375 GM 3.375 GM in DEXTROSE 5%-WATER - 50 ML IVPB SCH ×3 (02:41→17:38)
[2018-05-04] MEDS ORDERED: DEXTROSE 5%-WATER - 50 ML IVPB ONE ×3 (06:40→17:36)
[2018-05-04] MEDS ORDERED: PIPERACILLIN/TAZOBACTAM 3.375 GM VIAL IVPB ONE ×3 (06:40→17:36)
[2018-05-04] MEDS: POLYETHYLENE GLYCOL 3350 119 GM BTL PO SCH ×3 (06:41→22:08)
[2018-05-04] MEDS: HEPARIN NA (PORCINE) 5,000 UNITS/ML 1ML VIAL SQ SCH ×3 (06:41→21:59)
[2018-05-04] MEDS: INSULIN (LEVEMIR) 100 UNITS/ML UNITS SQ SCH ×2 (06:42→22:07)
[2018-05-04] MEDS: INSULIN SLIDING SCALE (NOVOLOG) 1 VIAL SQ SCH ×4 (06:42→22:08)
[2018-05-04] MEDS: LEVOTHYROXINE NA 50 MCG TABLET (FP) PO SCH (06:43)
[2018-05-04 06:56] LABS: ANION GAP 7 MMOL/L (8-16); BLOOD UREA NITROGEN 29 mg/dL (7-18); CALCIUM 8.7 mg/dL (8.5-10.1); CHLORIDE 109 mmol/L (98-107); CO2 30 mmol/L (21-32); CREATININE 0.8 mg/dL (0.55-1.3); GLUCOSE,RANDOM 180 mg/dL (74-106); POTASSIUM 3.4 mmol/L (3.5-5.1); SODIUM 146 mmol/L (136-145)
--- NOTE | 2018-05-04 09:03 | PN ---
Progress Note, Physician Chief Complaint: asleep, no distress - Current Medication List Current Medications: Active Medications Acetaminophen (Tylenol -) 650 mg PO Q6H PRN PRN Reason: Fever Or Pain Last Admin: 05/03/18 19:41 Dose: 650 mg Albuterol/Ipratropium (Duoneb -) 1 amp NEB Q6H PRN PRN Reason: SHORTNESS OF BREATH Last Admin: 05/03/18 07:42 Dose: 1 amp Dexamethasone (Decadron -) 4 mg PO BID [facility] Last Admin: 05/03/18 22:07 Dose: 4 mg Docusate Sodium (Colace -) 300 mg PO DAILY [facility] Last Admin: 05/03/18 09:29 Dose: Not Given Furosemide (Lasix Injection -) 40 mg IVPUSH DAILY [facility] Last Admin: 05/03/18 09:27 Dose: 40 mg Heparin Sodium (Porcine) (Heparin -) 5,000 unit SQ TID [facility] Last Admin: 05/04/18 06:41 Dose: 5,000 unit Piperacillin Sod/Tazobactam (Sod 3.375 gm/ Dextrose) 50 mls @ 100 mls/hr IVPB Q8H-IV [facility]; Protocol Last Admin: 05/04/18 02:41 Dose: 100 mls/hr Insulin Aspart (Novolog Vial Sliding Scale -) 1 vial SQ ACHS [facility]; Protocol Last Admin: 05/04/18 06:42 Dose: 2 units Insulin Detemir (Levemir Vial) 35 units SQ BID@0700,2200 [facility] Last Admin: 05/04/18 06:42 Dose: 35 units Levetiracetam (Keppra -) 500 mg PO BID [facility] Last Admin: 05/03/18 22:07 Dose: 500 mg Levothyroxine Sodium (Synthroid -) 50 mcg PO DAILY@0700 [facility] Last Admin: 05/04/18 06:43 Dose: 50 mcg Lidocaine (Lidoderm Patch -) 1 patch TP DAILY [facility] Last Admin: 05/03/18 09:28 Dose: 1 patch Lorazepam (Ativan Injection -) 0.5 mg IVPUSH Q8H PRN PRN Reason: ANXIETY Last Admin: 05/03/18 19:41 Dose: 0.5 mg Mirtazapine (Remeron -) 15 mg PO HS [facility] Last Admin: 05/03/18 22:07 Dose: 15 mg Miscellaneous (Lidoderm Patch Removal) 1 each MC DAILY@2200 [facility] Last Admin: 05/03/18 22:28 Dose: 1 each Morphine Sulfate (Morphine Sulfate) 2 mg IVPUSH Q6H PRN PRN Reason: PAIN LEVEL 6-10 Pantoprazole Sodium (Protonix -) 40 mg PO DAILY [facility] Last Admin: 05/03/18 09:28 Dose: 40 mg Polyethylene Glycol (Miralax (For Daily Use) -) 17 gm PO TID [facility] Last Admin: 05/04/18 06:41 Dose: 17 gm Potassium Chloride (K-Dur -) 20 meq PO DAILY [facility] Last Admin: 05/03/18 09:28 Dose: 20 meq - Objective Vital Signs: Vital Signs Temperature 98.8 F 05/04/18 06:00 Pulse Rate 98 H 05/04/18 06:00 Respiratory Rate 20 05/04/18 06:00 Blood Pressure 103/63 05/04/18 06:00 O2 Sat by Pulse Oximetry (%) 100 05/04/18 00:32 Constitutional: Yes: Calm Cardiovascular: Yes: Regular Rate and Rhythm Respiratory: Yes: Rhonchi, Other (no wheezing or rales) Gastrointestinal: Yes: Soft Edema: No Neurological: Yes: Alert Labs: CBC, BMP 05/02/18 05:30 05/04/18 05:30 INR, PTT INR 1.24 (0.83-1.09) H 04/29/18 14:24 Laboratory Tests 05/04/18 05:30 Sodium 146 H Potassium 3.4 L Creatinine 0.8 - ....Imaging EKG: Image Reviewed Problem List - Problems (1) Acute on chronic diastolic CHF (congestive heart failure) Code(s): I50.33 - ACUTE ON CHRONIC DIASTOLIC (CONGESTIVE) HEART FAILURE (2) Metastatic breast cancer Code(s): C50.919 - MALIGNANT NEOPLASM OF UNSP SITE OF UNSPECIFIED FEMALE BREAST (3) Pneumonia Code(s): J18.9 - PNEUMONIA, UNSPECIFIED ORGANISM Qualifiers: Pneumonia type: due to unspecified organism Laterality: right Lung location: lower lobe of lung Qualified Code(s): J18.1 - Lobar pneumonia, unspecified organism (4) Respiratory failure Code(s): J96.90 - RESPIRATORY FAILURE, UNSP, UNSP W HYPOXIA OR HYPERCAPNIA (5) Cerebral edema Code(s): G93.6 - CEREBRAL EDEMA Assessment/Plan IMP: Metastatic breast cancer Lung consolidations: PNA? vs mets Pleural effusions Acute on chronic diastolic CHF REC: 1. Clinically mildly improved: Decrease Lasix to daily dosing, and d/c Losartan as BP does not require meds 2. Supplimental O2 3. DVT prophylaxis as per PMD 4. Several days of telemetry - no sig arrhythmias. Can d/c Tele
[2018-05-04] MEDS ORDERED: PT OWN MED DRAWER 7, Y5N ONE (09:41)
[2018-05-04] MEDS: FUROSEMIDE 40 MG/4 ML INJECTABLE VIAL IVPUSH SCH (10:39)
[2018-05-04] MEDS: DEXAMETHASONE 4 MG TABLET (FP) PO SCH ×2 (10:40→21:59)
[2018-05-04] MEDS: PANTOPRAZOLE 40 MG TABLET (FP) PO SCH (10:40)
[2018-05-04] MEDS: DOCUSATE SODIUM 100 MG CAPSULE (FP) PO SCH (10:40)
[2018-05-04] MEDS: LIDOCAINE 5% TOPICAL PATCH TP SCH (10:40)
[2018-05-04] MEDS: levETIRAcetam 500 MG TABLET (FP) PO SCH ×2 (10:40→21:59)
[2018-05-04] MEDS: POTASSIUM CHLORIDE TABS 20 MEQ TABLET.ER (FP) PO SCH (10:40)
--- NOTE | 2018-05-04 12:25 | PN ---
Progress Note, Physician History of Present Illness: PULMONARY DROWSY ON BIPAP,-RESP DSTRESS - Current Medication List Current Medications: Active Medications Acetaminophen (Tylenol -) 650 mg PO Q6H PRN PRN Reason: Fever Or Pain Last Admin: 05/03/18 19:41 Dose: 650 mg Albuterol/Ipratropium (Duoneb -) 1 amp NEB Q6H PRN PRN Reason: SHORTNESS OF BREATH Last Admin: 05/03/18 07:42 Dose: 1 amp Dexamethasone (Decadron -) 4 mg PO BID [facility] Last Admin: 05/04/18 10:40 Dose: 4 mg Docusate Sodium (Colace -) 300 mg PO DAILY [facility] Last Admin: 05/04/18 10:40 Dose: 300 mg Furosemide (Lasix Injection -) 40 mg IVPUSH DAILY [facility] Last Admin: 05/04/18 10:39 Dose: 40 mg Heparin Sodium (Porcine) (Heparin -) 5,000 unit SQ TID [facility] Last Admin: 05/04/18 06:41 Dose: 5,000 unit Piperacillin Sod/Tazobactam (Sod 3.375 gm/ Dextrose) 50 mls @ 100 mls/hr IVPB Q8H-IV [facility]; Protocol Last Admin: 05/04/18 10:39 Dose: 100 mls/hr Insulin Aspart (Novolog Vial Sliding Scale -) 1 vial SQ ACHS [facility]; Protocol Last Admin: 05/04/18 11:31 Dose: Not Given Insulin Detemir (Levemir Vial) 35 units SQ BID@0700,2200 [facility] Last Admin: 05/04/18 06:42 Dose: 35 units Levetiracetam (Keppra -) 500 mg PO BID [facility] Last Admin: 05/04/18 10:40 Dose: 500 mg Levothyroxine Sodium (Synthroid -) 50 mcg PO DAILY@0700 [facility] Last Admin: 05/04/18 06:43 Dose: 50 mcg Lidocaine (Lidoderm Patch -) 1 patch TP DAILY [facility] Last Admin: 05/04/18 10:40 Dose: 1 patch Lorazepam (Ativan Injection -) 0.5 mg IVPUSH Q8H PRN PRN Reason: ANXIETY Last Admin: 05/03/18 19:41 Dose: 0.5 mg Mirtazapine (Remeron -) 15 mg PO HS [facility] Last Admin: 05/03/18 22:07 Dose: 15 mg Miscellaneous (Lidoderm Patch Removal) 1 each MC DAILY@2200 [facility] Last Admin: 05/03/18 22:28 Dose: 1 each Morphine Sulfate (Morphine Sulfate) 2 mg IVPUSH Q6H PRN PRN Reason: PAIN LEVEL 6-10 Pantoprazole Sodium (Protonix -) 40 mg PO DAILY [facility] Last Admin: 05/04/18 10:40 Dose: 40 mg Polyethylene Glycol (Miralax (For Daily Use) -) 17 gm PO TID [facility] Last Admin: 05/04/18 06:41 Dose: 17 gm Potassium Chloride (K-Dur -) 20 meq PO DAILY [facility] Last Admin: 05/04/18 10:40 Dose: 20 meq - Objective Vital Signs: Vital Signs Temperature 97.4 F L 05/04/18 09:17 Pulse Rate 84 05/04/18 09:17 Respiratory Rate 20 05/04/18 09:17 Blood Pressure 97/58 L 05/04/18 09:17 O2 Sat by Pulse Oximetry (%) 100 05/04/18 09:00 Constitutional: Yes: Well Nourished, Other (DROWSY) Eyes: Yes: WNL HENT: Yes: WNL Neck: Yes: WNL Cardiovascular: Yes: Regular Rate and Rhythm, S1, S2 Respiratory: Yes: Wheezes (BILATERAL WHEEZES AND SCATTERED RHONCHI) Gastrointestinal: Yes: Normal Bowel Sounds, Soft Extremities: Yes: WNL Edema: Yes Labs: CBC, BMP 05/02/18 05:30 05/04/18 05:30 INR, PTT INR 1.24 (0.83-1.09) H 04/29/18 14:24 Assessment/Plan Problem List - Problems (1) Acute on chronic diastolic CHF (congestive heart failure) Code(s): I50.33 - ACUTE ON CHRONIC DIASTOLIC (CONGESTIVE) HEART FAILURE (2) Metastatic breast cancer Code(s): C50.919 - MALIGNANT NEOPLASM OF UNSP SITE OF UNSPECIFIED FEMALE BREAST (3) Pneumonia Code(s): J18.9 - PNEUMONIA, UNSPECIFIED ORGANISM Qualifiers: Pneumonia type: due to unspecified organism Laterality: right Lung location: lower lobe of lung Qualified Code(s): J18.1 - Lobar pneumonia, unspecified organism (4) Anemia Code(s): D64.9 - ANEMIA, UNSPECIFIED Qualifiers: Anemia type: unspecified type Qualified Code(s): D64.9 - Anemia, unspecified (5) Back pain Code(s): M54.9 - DORSALGIA, UNSPECIFIED Qualifiers: Back pain location: back pain in other location Chronicity: chronic Qualified Code(s): M54.9 - Dorsalgia, unspecified; G89.29 - Other chronic pain (6) Breast CA Code(s): C50.919 - MALIGNANT NEOPLASM OF UNSP SITE OF UNSPECIFIED FEMALE BREAST Qualifiers: Breast location: overlapping sites of breast Laterality: right (7) Diabetes Code(s): E11.9 - TYPE 2 DIABETES MELLITUS WITHOUT COMPLICATIONS Qualifiers: Diabetes mellitus type: type 2 Diabetes mellitus complication status: without complication (8) Generalized weakness Code(s): R53.1 - WEAKNESS (9) Hypertension Code(s): I10 - ESSENTIAL (PRIMARY) HYPERTENSION (10) Hypothyroidism Code(s): E03.9 - HYPOTHYROIDISM, UNSPECIFIED (11) Intracranial mass Code(s): R90.0 - INTCRN SPACE-OCCUPYING LESION FOUND ON DX IMAGING OF CNSL Assessment/Plan Lasix empiric ABX for possible PNA O2 as needed to maintain saturation BD TX PRN NIPPV as needed Should consider P Care evaluation for GOC Daily weight Analgesics андрей COLLINS
--- NOTE | 2018-05-04 14:50 | PN ---
Progress Note, Physician History of Present Illness: on bipap patient more lethargic - Current Medication List Current Medications: Active Medications Acetaminophen (Tylenol -) 650 mg PO Q6H PRN PRN Reason: Fever Or Pain Last Admin: 05/03/18 19:41 Dose: 650 mg Albuterol/Ipratropium (Duoneb -) 1 amp NEB Q6H PRN PRN Reason: SHORTNESS OF BREATH Last Admin: 05/03/18 07:42 Dose: 1 amp Dexamethasone (Decadron -) 4 mg PO BID [facility] Last Admin: 05/04/18 10:40 Dose: 4 mg Docusate Sodium (Colace -) 300 mg PO DAILY [facility] Last Admin: 05/04/18 10:40 Dose: 300 mg Furosemide (Lasix Injection -) 40 mg IVPUSH DAILY [facility] Last Admin: 05/04/18 10:39 Dose: 40 mg Heparin Sodium (Porcine) (Heparin -) 5,000 unit SQ TID [facility] Last Admin: 05/04/18 13:56 Dose: 5,000 unit Piperacillin Sod/Tazobactam (Sod 3.375 gm/ Dextrose) 50 mls @ 100 mls/hr IVPB Q8H-IV [facility]; Protocol Last Admin: 05/04/18 10:39 Dose: 100 mls/hr Insulin Aspart (Novolog Vial Sliding Scale -) 1 vial SQ ACHS [facility]; Protocol Last Admin: 05/04/18 11:31 Dose: Not Given Insulin Detemir (Levemir Vial) 35 units SQ BID@0700,2200 [facility] Last Admin: 05/04/18 06:42 Dose: 35 units Levetiracetam (Keppra -) 500 mg PO BID [facility] Last Admin: 05/04/18 10:40 Dose: 500 mg Levothyroxine Sodium (Synthroid -) 50 mcg PO DAILY@0700 [facility] Last Admin: 05/04/18 06:43 Dose: 50 mcg Lidocaine (Lidoderm Patch -) 1 patch TP DAILY [facility] Last Admin: 05/04/18 10:40 Dose: 1 patch Lorazepam (Ativan Injection -) 0.5 mg IVPUSH Q8H PRN PRN Reason: ANXIETY Last Admin: 05/03/18 19:41 Dose: 0.5 mg Mirtazapine (Remeron -) 15 mg PO HS [facility] Last Admin: 05/03/18 22:07 Dose: 15 mg Miscellaneous (Lidoderm Patch Removal) 1 each MC DAILY@2200 [facility] Last Admin: 05/03/18 22:28 Dose: 1 each Morphine Sulfate (Morphine Sulfate) 2 mg IVPUSH Q6H PRN PRN Reason: PAIN LEVEL 6-10 Pantoprazole Sodium (Protonix -) 40 mg PO DAILY [facility] Last Admin: 05/04/18 10:40 Dose: 40 mg Polyethylene Glycol (Miralax (For Daily Use) -) 17 gm PO TID [facility] Last Admin: 05/04/18 13:57 Dose: Not Given Potassium Chloride (K-Dur -) 20 meq PO DAILY [facility] Last Admin: 05/04/18 10:40 Dose: 20 meq - Objective Vital Signs: Vital Signs Temperature 97.4 F L 05/04/18 09:17 Pulse Rate 84 05/04/18 09:17 Respiratory Rate 20 05/04/18 09:17 Blood Pressure 97/58 L 05/04/18 09:17 O2 Sat by Pulse Oximetry (%) 100 05/04/18 09:00 Constitutional: Yes: Other Cardiovascular: Yes: S1, S2 Respiratory: Yes: On BiPap Gastrointestinal: Yes: Normal Bowel Sounds, Soft Musculoskeletal: Yes: WNL Extremities: Yes: WNL Neurological: Yes: Lethargy Psychiatric: Yes: Other Labs: CBC, BMP 05/02/18 05:30 05/04/18 05:30 INR, PTT INR 1.24 (0.83-1.09) H 04/29/18 14:24 Assessment/Plan Problem List - Problems (1) Pneumonia Code(s): J18.9 - PNEUMONIA, UNSPECIFIED ORGANISM Qualifiers: Pneumonia type: due to unspecified organism Laterality: right Lung location: lower lobe of lung Qualified Code(s): J18.1 - Lobar pneumonia, unspecified organism (2) Respiratory failure Code(s): J96.90 - RESPIRATORY FAILURE, UNSP, UNSP W HYPOXIA OR HYPERCAPNIA (3) Metastatic breast cancer Code(s): C50.919 - MALIGNANT NEOPLASM OF UNSP SITE OF UNSPECIFIED FEMALE BREAST (4) Diabetes Code(s): E11.9 - TYPE 2 DIABETES MELLITUS WITHOUT COMPLICATIONS Qualifiers: Diabetes mellitus type: type 2 Diabetes mellitus complication status: without complication (5) Hypertension Code(s): I10 - ESSENTIAL (PRIMARY) HYPERTENSION (6) Hypothyroidism Code(s): E03.9 - HYPOTHYROIDISM, UNSPECIFIED (7) Vasogenic cerebral edema Code(s): G93.6 - CEREBRAL EDEMA patient receive iv abx plan continue abx monitor closely resp support rest as per the team await for all cx reports
--- NOTE | 2018-05-04 16:08 | PN ---
Progress Note (short form) - Note Progress Note: Patient seen and examined On BIPAP Lethargic , communicative Last Vital Signs Temp Pulse Resp BP Pulse Ox 98.4 F 94 H 20 115/78 97 05/04/18 14:00 05/04/18 14:00 05/04/18 09:17 05/04/18 14:00 05/04/18 15:04 Cor: RSR, No murmurs, No gallops Lungs: rhonchi anteriorly Abd: Soft, Normal bowel sounds, No organomegaly Ext:No significant edema,SCD Skin: No rashes, Integument intact CBC, BMP 05/02/18 05:30 05/04/18 05:30 Current Medications Generic Name Dose Route Start Last Admin Trade Name Freq PRN Reason Stop Dose Admin Acetaminophen 650 mg 05/01/18 08:25 05/03/18 19:41 Tylenol - PO 650 mg Q6H PRN Administration Fever Or Pain Albuterol/Ipratropium 1 amp 05/01/18 08:25 05/03/18 07:42 Duoneb - NEB 1 amp Q6H PRN Administration SHORTNESS OF BREATH Dexamethasone 4 mg 05/01/18 10:00 05/04/18 10:40 Decadron - PO 4 mg BID JD Administration Docusate Sodium 300 mg 05/01/18 10:00 05/04/18 10:40 Colace - PO 300 mg DAILY JD Administration Furosemide 40 mg 05/02/18 10:00 05/04/18 10:39 Lasix Injection - IVPUSH 40 mg DAILY JD Administration Heparin Sodium (Porcine) 5,000 unit 05/01/18 14:00 05/04/18 13:56 Heparin - SQ 5,000 unit TID JD Administration Piperacillin Sod/Tazobactam 50 mls @ 100 mls/hr 05/01/18 10:00 05/04/18 10:39 Sod 3.375 gm/ Dextrose IVPB 100 mls/hr Q8H-IV [facility] Administration Protocol Insulin Aspart 1 vial 05/01/18 11:00 05/04/18 11:31 Novolog Vial Sliding Scale - SQ Not Given ACHS [facility] Protocol Insulin Detemir 35 units 05/01/18 22:00 05/04/18 06:42 Levemir Vial SQ 35 units BID@0700,2200 [facility] Administration Levetiracetam 500 mg 05/01/18 10:00 05/04/18 10:40 Keppra - PO 500 mg BID [facility] Administration Levothyroxine Sodium 50 mcg 05/02/18 07:00 05/04/18 06:43 Synthroid - PO 50 mcg DAILY@0700 [facility] Administration Lidocaine 1 patch 05/01/18 10:00 05/04/18 10:40 Lidoderm Patch - TP 1 patch DAILY [facility] Administration Lorazepam 0.5 mg 05/01/18 21:11 05/03/18 19:41 Ativan Injection - IVPUSH 0.5 mg Q8H PRN Administration ANXIETY Mirtazapine 15 mg 05/01/18 22:00 05/03/18 22:07 Remeron - PO 15 mg HS [facility] Administration Miscellaneous 1 each 05/01/18 22:00 05/03/18 22:28 Lidoderm Patch Removal MC 1 each DAILY@2200 [facility] Administration Morphine Sulfate 2 mg 05/01/18 14:58 Morphine Sulfate IVPUSH Q6H PRN PAIN LEVEL 6-10 Pantoprazole Sodium 40 mg 05/01/18 10:00 05/04/18 10:40 Protonix - PO 40 mg DAILY [facility] Administration Polyethylene Glycol 17 gm 05/01/18 14:00 05/04/18 13:57 Miralax (For Daily Use) - PO Not Given TID [facility] Potassium Chloride 20 meq 05/01/18 10:00 05/04/18 10:40 K-Dur - PO 20 meq DAILY [facility] Administration Impression Metastatic breast cancer Acute respiratory Failure Diastolic CHF PNEUMONIA Needs palliative care evaluation for end of life care and to define G.O.C.
[2018-05-04] MEDS: LORazepam 2 MG/ML SDV VIAL IVPUSH PRN (18:12)
[2018-05-04 19:20] VITALS: BMI 34.7
[2018-05-04] MEDS: ALBUTEROL SO4 2.5/IPRATROPIUM 0.5 INH SOL 3 ML VIAL.NEB. NEB PRN (20:26)
[2018-05-04] MEDS: MIRTAZAPINE 15 MG TABLET (FP) PO SCH (21:59)
[2018-05-04] MEDS: LIDOCAINE PATCH REMOVAL MC SCH (22:07)
--- NOTE | 2018-05-04 23:10 | PN ---
Progress Note, Physician - Current Medication List Current Medications: Active Medications Acetaminophen (Tylenol -) 650 mg PO Q6H PRN PRN Reason: Fever Or Pain Last Admin: 05/03/18 19:41 Dose: 650 mg Albuterol/Ipratropium (Duoneb -) 1 amp NEB Q6H PRN PRN Reason: SHORTNESS OF BREATH Last Admin: 05/04/18 20:26 Dose: 1 amp Dexamethasone (Decadron -) 4 mg PO BID [facility] Last Admin: 05/04/18 21:59 Dose: 4 mg Docusate Sodium (Colace -) 300 mg PO DAILY [facility] Last Admin: 05/04/18 10:40 Dose: 300 mg Furosemide (Lasix Injection -) 40 mg IVPUSH DAILY [facility] Last Admin: 05/04/18 10:39 Dose: 40 mg Heparin Sodium (Porcine) (Heparin -) 5,000 unit SQ TID [facility] Last Admin: 05/04/18 21:59 Dose: 5,000 unit Piperacillin Sod/Tazobactam (Sod 3.375 gm/ Dextrose) 50 mls @ 100 mls/hr IVPB Q8H-IV [facility]; Protocol Last Admin: 05/04/18 17:38 Dose: 100 mls/hr Insulin Aspart (Novolog Vial Sliding Scale -) 1 vial SQ ACHS [facility]; Protocol Last Admin: 05/04/18 22:08 Dose: 4 units Insulin Detemir (Levemir Vial) 35 units SQ BID@0700,2200 [facility] Last Admin: 05/04/18 22:07 Dose: 35 units Levetiracetam (Keppra -) 500 mg PO BID [facility] Last Admin: 05/04/18 21:59 Dose: 500 mg Levothyroxine Sodium (Synthroid -) 50 mcg PO DAILY@0700 [facility] Last Admin: 05/04/18 06:43 Dose: 50 mcg Lidocaine (Lidoderm Patch -) 1 patch TP DAILY [facility] Last Admin: 05/04/18 10:40 Dose: 1 patch Mirtazapine (Remeron -) 15 mg PO HS [facility] Last Admin: 05/04/18 21:59 Dose: 15 mg Miscellaneous (Lidoderm Patch Removal) 1 each MC DAILY@2200 [facility] Last Admin: 05/04/18 22:07 Dose: 1 each Morphine Sulfate (Morphine Sulfate) 2 mg IVPUSH Q6H PRN PRN Reason: PAIN LEVEL 6-10 Pantoprazole Sodium (Protonix -) 40 mg PO DAILY [facility] Last Admin: 05/04/18 10:40 Dose: 40 mg Polyethylene Glycol (Miralax (For Daily Use) -) 17 gm PO TID [facility] Last Admin: 05/04/18 22:08 Dose: 17 gm Potassium Chloride (K-Dur -) 20 meq PO DAILY [facility] Last Admin: 05/04/18 10:40 Dose: 20 meq - Objective Vital Signs: Vital Signs Temperature 97.8 F 05/04/18 22:00 Pulse Rate 105 H 05/04/18 22:00 Respiratory Rate 20 05/04/18 22:00 Blood Pressure 100/65 05/04/18 22:00 O2 Sat by Pulse Oximetry (%) 100 05/04/18 21:00 Labs: CBC, BMP 05/02/18 05:30 05/04/18 05:30 INR, PTT INR 1.24 (0.83-1.09) H 04/29/18 14:24 Problem List - Problems (1) Pneumonia Code(s): J18.9 - PNEUMONIA, UNSPECIFIED ORGANISM Qualifiers: Pneumonia type: due to unspecified organism Laterality: right Lung location: lower lobe of lung Qualified Code(s): J18.1 - Lobar pneumonia, unspecified organism (2) Respiratory failure Code(s): J96.90 - RESPIRATORY FAILURE, UNSP, UNSP W HYPOXIA OR HYPERCAPNIA (3) Metastatic breast cancer Code(s): C50.919 - MALIGNANT NEOPLASM OF UNSP SITE OF UNSPECIFIED FEMALE BREAST (4) Diabetes Code(s): E11.9 - TYPE 2 DIABETES MELLITUS WITHOUT COMPLICATIONS Qualifiers: Diabetes mellitus type: type 2 Diabetes mellitus complication status: without complication (5) Hypertension Code(s): I10 - ESSENTIAL (PRIMARY) HYPERTENSION (6) Hypothyroidism Code(s): E03.9 - HYPOTHYROIDISM, UNSPECIFIED (7) Vasogenic cerebral edema Code(s): G93.6 - CEREBRAL EDEMA
[2018-05-05] MEDS ORDERED: PIPERACILLIN/TAZOBACTAM 3.375 GM VIAL IVPB ONE ×3 (01:23→17:27)
[2018-05-05] MEDS ORDERED: DEXTROSE 5%-WATER - 50 ML IVPB ONE ×3 (01:23→17:27)
[2018-05-05] MEDS: PIPERACILLIN/TAZOB 3.375 GM 3.375 GM in DEXTROSE 5%-WATER - 50 ML IVPB SCH ×3 (01:25→17:52)
[2018-05-05] MEDS: LEVOTHYROXINE NA 50 MCG TABLET (FP) PO SCH (06:42)
[2018-05-05] MEDS: POLYETHYLENE GLYCOL 3350 119 GM BTL PO SCH ×3 (06:42→22:06)
[2018-05-05] MEDS: HEPARIN NA (PORCINE) 5,000 UNITS/ML 1ML VIAL SQ SCH ×3 (06:42→21:59)
[2018-05-05] MEDS: INSULIN SLIDING SCALE (NOVOLOG) 1 VIAL SQ SCH ×4 (06:43→22:07)
[2018-05-05] MEDS: INSULIN (LEVEMIR) 100 UNITS/ML UNITS SQ SCH ×2 (07:19→22:06)
[2018-05-05] MEDS: ALBUTEROL SO4 2.5/IPRATROPIUM 0.5 INH SOL 3 ML VIAL.NEB. NEB PRN ×2 (08:10→20:18)
--- NOTE | 2018-05-05 09:14 | PN ---
Progress Note, Physician History of Present Illness: PULMONARY LETHARGIC ON BIPAP,MILDLY TACHYPNEIC - Current Medication List Current Medications: Active Medications Acetaminophen (Tylenol -) 650 mg PO Q6H PRN PRN Reason: Fever Or Pain Last Admin: 05/03/18 19:41 Dose: 650 mg Albuterol/Ipratropium (Duoneb -) 1 amp NEB Q6H PRN PRN Reason: SHORTNESS OF BREATH Last Admin: 05/05/18 08:10 Dose: 1 amp Dexamethasone (Decadron -) 4 mg PO BID [facility] Last Admin: 05/04/18 21:59 Dose: 4 mg Docusate Sodium (Colace -) 300 mg PO DAILY [facility] Last Admin: 05/04/18 10:40 Dose: 300 mg Furosemide (Lasix Injection -) 40 mg IVPUSH DAILY [facility] Last Admin: 05/04/18 10:39 Dose: 40 mg Heparin Sodium (Porcine) (Heparin -) 5,000 unit SQ TID [facility] Last Admin: 05/05/18 06:42 Dose: 5,000 unit Piperacillin Sod/Tazobactam (Sod 3.375 gm/ Dextrose) 50 mls @ 100 mls/hr IVPB Q8H-IV [facility]; Protocol Last Admin: 05/05/18 01:25 Dose: 100 mls/hr Insulin Aspart (Novolog Vial Sliding Scale -) 1 vial SQ ACHS [facility]; Protocol Last Admin: 05/05/18 06:43 Dose: Not Given Insulin Detemir (Levemir Vial) 35 units SQ BID@0700,2200 [facility] Last Admin: 05/05/18 07:19 Dose: Not Given Levetiracetam (Keppra -) 500 mg PO BID [facility] Last Admin: 05/04/18 21:59 Dose: 500 mg Levothyroxine Sodium (Synthroid -) 50 mcg PO DAILY@0700 [facility] Last Admin: 05/05/18 06:42 Dose: 50 mcg Lidocaine (Lidoderm Patch -) 1 patch TP DAILY [facility] Last Admin: 05/04/18 10:40 Dose: 1 patch Mirtazapine (Remeron -) 15 mg PO HS [facility] Last Admin: 05/04/18 21:59 Dose: 15 mg Miscellaneous (Lidoderm Patch Removal) 1 each MC DAILY@2200 [facility] Last Admin: 05/04/18 22:07 Dose: 1 each Morphine Sulfate (Morphine Sulfate) 2 mg IVPUSH Q6H PRN PRN Reason: PAIN LEVEL 6-10 Pantoprazole Sodium (Protonix -) 40 mg PO DAILY [facility] Last Admin: 05/04/18 10:40 Dose: 40 mg Polyethylene Glycol (Miralax (For Daily Use) -) 17 gm PO TID [facility] Last Admin: 05/05/18 06:42 Dose: 17 gm Potassium Chloride (K-Dur -) 20 meq PO DAILY [facility] Last Admin: 05/04/18 10:40 Dose: 20 meq - Objective Vital Signs: Vital Signs Temperature 97.9 F 05/05/18 06:00 Pulse Rate 87 05/05/18 06:00 Respiratory Rate 20 05/05/18 08:35 Blood Pressure 100/63 05/05/18 06:00 O2 Sat by Pulse Oximetry (%) 97 05/05/18 08:35 Constitutional: Yes: Well Nourished, Other (LETHARGIC) Eyes: Yes: WNL HENT: Yes: WNL Neck: Yes: Supple Cardiovascular: Yes: Regular Rate and Rhythm, S1, S2 Respiratory: Yes: Rhonchi (SCATTERED RHONCHI) Gastrointestinal: Yes: Normal Bowel Sounds, Soft Extremities: Yes: WNL Edema: Yes Assessment/Plan Problem List - Problems (1) Acute on chronic diastolic CHF (congestive heart failure) Code(s): I50.33 - ACUTE ON CHRONIC DIASTOLIC (CONGESTIVE) HEART FAILURE (2) Metastatic breast cancer Code(s): C50.919 - MALIGNANT NEOPLASM OF UNSP SITE OF UNSPECIFIED FEMALE BREAST (3) Pneumonia Code(s): J18.9 - PNEUMONIA, UNSPECIFIED ORGANISM Qualifiers: Pneumonia type: due to unspecified organism Laterality: right Lung location: lower lobe of lung Qualified Code(s): J18.1 - Lobar pneumonia, unspecified organism (4) Anemia Code(s): D64.9 - ANEMIA, UNSPECIFIED Qualifiers: Anemia type: unspecified type Qualified Code(s): D64.9 - Anemia, unspecified (5) Back pain Code(s): M54.9 - DORSALGIA, UNSPECIFIED Qualifiers: Back pain location: back pain in other location Chronicity: chronic Qualified Code(s): M54.9 - Dorsalgia, unspecified; G89.29 - Other chronic pain (6) Breast CA Code(s): C50.919 - MALIGNANT NEOPLASM OF UNSP SITE OF UNSPECIFIED FEMALE BREAST Qualifiers: Breast location: overlapping sites of breast Laterality: right (7) Diabetes Code(s): E11.9 - TYPE 2 DIABETES MELLITUS WITHOUT COMPLICATIONS Qualifiers: Diabetes mellitus type: type 2 Diabetes mellitus complication status: without complication (8) Generalized weakness Code(s): R53.1 - WEAKNESS (9) Hypertension Code(s): I10 - ESSENTIAL (PRIMARY) HYPERTENSION (10) Hypothyroidism Code(s): E03.9 - HYPOTHYROIDISM, UNSPECIFIED (11) Intracranial mass Code(s): R90.0 - INTCRN SPACE-OCCUPYING LESION FOUND ON DX IMAGING OF CNSL Assessment/Plan Lasix empiric ABX for possible PNA O2 as needed to maintain saturation BD TX PRN NIPPV as needed Should consider P Care evaluation for GOC Daily weight Analgesics decadron chest x-ray prognosis poor DR COLLINS
--- NOTE | 2018-05-05 09:41 | PN ---
Progress Note, Physician Chief Complaint: Heme onc reccs noted - Current Medication List Current Medications: Active Medications Acetaminophen (Tylenol -) 650 mg PO Q6H PRN PRN Reason: Fever Or Pain Last Admin: 05/03/18 19:41 Dose: 650 mg Albuterol/Ipratropium (Duoneb -) 1 amp NEB Q6H PRN PRN Reason: SHORTNESS OF BREATH Last Admin: 05/05/18 08:10 Dose: 1 amp Dexamethasone (Decadron -) 4 mg PO BID [facility] Last Admin: 05/04/18 21:59 Dose: 4 mg Docusate Sodium (Colace -) 300 mg PO DAILY [facility] Last Admin: 05/04/18 10:40 Dose: 300 mg Furosemide (Lasix Injection -) 40 mg IVPUSH DAILY [facility] Last Admin: 05/04/18 10:39 Dose: 40 mg Heparin Sodium (Porcine) (Heparin -) 5,000 unit SQ TID [facility] Last Admin: 05/05/18 06:42 Dose: 5,000 unit Piperacillin Sod/Tazobactam (Sod 3.375 gm/ Dextrose) 50 mls @ 100 mls/hr IVPB Q8H-IV [facility]; Protocol Last Admin: 05/05/18 01:25 Dose: 100 mls/hr Insulin Aspart (Novolog Vial Sliding Scale -) 1 vial SQ ACHS [facility]; Protocol Last Admin: 05/05/18 06:43 Dose: Not Given Insulin Detemir (Levemir Vial) 35 units SQ BID@0700,2200 [facility] Last Admin: 05/05/18 07:19 Dose: Not Given Levetiracetam (Keppra -) 500 mg PO BID [facility] Last Admin: 05/04/18 21:59 Dose: 500 mg Levothyroxine Sodium (Synthroid -) 50 mcg PO DAILY@0700 [facility] Last Admin: 05/05/18 06:42 Dose: 50 mcg Lidocaine (Lidoderm Patch -) 1 patch TP DAILY [facility] Last Admin: 05/04/18 10:40 Dose: 1 patch Mirtazapine (Remeron -) 15 mg PO HS [facility] Last Admin: 05/04/18 21:59 Dose: 15 mg Miscellaneous (Lidoderm Patch Removal) 1 each MC DAILY@2200 [facility] Last Admin: 05/04/18 22:07 Dose: 1 each Morphine Sulfate (Morphine Sulfate) 2 mg IVPUSH Q6H PRN PRN Reason: PAIN LEVEL 6-10 Pantoprazole Sodium (Protonix -) 40 mg PO DAILY [facility] Last Admin: 05/04/18 10:40 Dose: 40 mg Polyethylene Glycol (Miralax (For Daily Use) -) 17 gm PO TID [facility] Last Admin: 05/05/18 06:42 Dose: 17 gm Potassium Chloride (K-Dur -) 20 meq PO DAILY [facility] Last Admin: 05/04/18 10:40 Dose: 20 meq - Objective Vital Signs: Vital Signs Temperature 97.6 F 05/05/18 09:28 Pulse Rate 101 H 05/05/18 09:28 Respiratory Rate 20 05/05/18 09:28 Blood Pressure 106/60 05/05/18 09:28 O2 Sat by Pulse Oximetry (%) 100 05/05/18 08:35 Constitutional: Yes: No Distress Cardiovascular: Yes: Regular Rate and Rhythm Respiratory: Yes: Other (no rales or wheezing.) Gastrointestinal: Yes: Soft Edema: No Labs: CBC, BMP 05/02/18 05:30 05/04/18 05:30 INR, PTT INR 1.24 (0.83-1.09) H 04/29/18 14:24 - ....Imaging EKG: Image Reviewed Problem List - Problems (1) Acute on chronic diastolic CHF (congestive heart failure) Code(s): I50.33 - ACUTE ON CHRONIC DIASTOLIC (CONGESTIVE) HEART FAILURE (2) Metastatic breast cancer Code(s): C50.919 - MALIGNANT NEOPLASM OF UNSP SITE OF UNSPECIFIED FEMALE BREAST (3) Pneumonia Code(s): J18.9 - PNEUMONIA, UNSPECIFIED ORGANISM Qualifiers: Pneumonia type: due to unspecified organism Laterality: right Lung location: lower lobe of lung Qualified Code(s): J18.1 - Lobar pneumonia, unspecified organism (4) Respiratory failure Code(s): J96.90 - RESPIRATORY FAILURE, UNSP, UNSP W HYPOXIA OR HYPERCAPNIA (5) Cerebral edema Code(s): G93.6 - CEREBRAL EDEMA Assessment/Plan IMP: Metastatic breast cancer Lung consolidations: PNA? vs mets Pleural effusions Acute on chronic diastolic CHF REC: 1. Clinically mildly improved: Continue Lasix 2. Supplimental O2, NIPPV 3. DVT prophylaxis as per PMD 4. Palliative care consult planned to define goals of care
[2018-05-05] MEDS: DOCUSATE SODIUM 100 MG CAPSULE (FP) PO SCH (09:58)
[2018-05-05] MEDS: ACETAMINOPHEN 325 MG TABLET (FP) PO PRN (09:58)
[2018-05-05] MEDS: FUROSEMIDE 40 MG/4 ML INJECTABLE VIAL IVPUSH SCH (09:58)
[2018-05-05] MEDS: POTASSIUM CHLORIDE TABS 20 MEQ TABLET.ER (FP) PO SCH (09:58)
[2018-05-05] MEDS: levETIRAcetam 500 MG TABLET (FP) PO SCH ×2 (09:59→23:15)
[2018-05-05] MEDS: LIDOCAINE 5% TOPICAL PATCH TP SCH (09:59)
[2018-05-05] MEDS: DEXAMETHASONE 4 MG TABLET (FP) PO SCH ×2 (09:59→23:14)
[2018-05-05] MEDS: PANTOPRAZOLE 40 MG TABLET (FP) PO SCH (09:59)
[2018-05-05 11:08] LABS: ANION GAP 8 MMOL/L (8-16); BLOOD UREA NITROGEN 31 mg/dL (7-18); CALCIUM 9.7 mg/dL (8.5-10.1); CHLORIDE 108 mmol/L (98-107); CO2 32 mmol/L (21-32); CREATININE 0.7 mg/dL (0.55-1.3); GLUCOSE,RANDOM 103 mg/dL (74-106); POTASSIUM 3.1 mmol/L (3.5-5.1); SODIUM 148 mmol/L (136-145)
[2018-05-05 11:26] LABS: ARTERIAL BLD GAS O2 SATURATION 97.2 % (90-98.9); ARTERIAL BLOOD GAS BASE EXCESS 3.5 meq/l (-2-2); ARTERIAL BLOOD GAS PCO2 41.5 mmHg (35-45); ARTERIAL BLOOD GAS pH 7.44 (7.35-7.45)
[2018-05-05 11:29] LABS: ALLENS TEST POSITIVE
--- NOTE | 2018-05-05 14:57 | PN ---
Progress Note, Physician History of Present Illness: more awake looks tired on bipap - Current Medication List Current Medications: Active Medications Acetaminophen (Tylenol -) 650 mg PO Q6H PRN PRN Reason: Fever Or Pain Last Admin: 05/05/18 09:58 Dose: 650 mg Albuterol/Ipratropium (Duoneb -) 1 amp NEB Q6H PRN PRN Reason: SHORTNESS OF BREATH Last Admin: 05/05/18 08:10 Dose: 1 amp Dexamethasone (Decadron -) 4 mg PO BID [facility] Last Admin: 05/05/18 09:59 Dose: 4 mg Docusate Sodium (Colace -) 300 mg PO DAILY [facility] Last Admin: 05/05/18 09:58 Dose: 300 mg Furosemide (Lasix Injection -) 40 mg IVPUSH DAILY [facility] Last Admin: 05/05/18 09:58 Dose: 40 mg Heparin Sodium (Porcine) (Heparin -) 5,000 unit SQ TID [facility] Last Admin: 05/05/18 06:42 Dose: 5,000 unit Piperacillin Sod/Tazobactam (Sod 3.375 gm/ Dextrose) 50 mls @ 100 mls/hr IVPB Q8H-IV [facility]; Protocol Last Admin: 05/05/18 09:57 Dose: 100 mls/hr Insulin Aspart (Novolog Vial Sliding Scale -) 1 vial SQ ACHS [facility]; Protocol Last Admin: 05/05/18 11:41 Dose: Not Given Insulin Detemir (Levemir Vial) 35 units SQ BID@0700,2200 [facility] Last Admin: 05/05/18 07:19 Dose: Not Given Levetiracetam (Keppra -) 500 mg PO BID [facility] Last Admin: 05/05/18 09:59 Dose: 500 mg Levothyroxine Sodium (Synthroid -) 50 mcg PO DAILY@0700 [facility] Last Admin: 05/05/18 06:42 Dose: 50 mcg Lidocaine (Lidoderm Patch -) 1 patch TP DAILY [facility] Last Admin: 05/05/18 09:59 Dose: 1 patch Mirtazapine (Remeron -) 15 mg PO HS [facility] Last Admin: 05/04/18 21:59 Dose: 15 mg Miscellaneous (Lidoderm Patch Removal) 1 each MC DAILY@2200 [facility] Last Admin: 05/04/18 22:07 Dose: 1 each Morphine Sulfate (Morphine Sulfate) 2 mg IVPUSH Q6H PRN PRN Reason: PAIN LEVEL 6-10 Pantoprazole Sodium (Protonix -) 40 mg PO DAILY [facility] Last Admin: 05/05/18 09:59 Dose: 40 mg Polyethylene Glycol (Miralax (For Daily Use) -) 17 gm PO TID [facility] Last Admin: 05/05/18 13:22 Dose: Not Given Potassium Chloride (K-Dur -) 20 meq PO DAILY [facility] Last Admin: 05/05/18 09:58 Dose: 20 meq - Objective Vital Signs: Vital Signs Temperature 97.6 F 05/05/18 09:28 Pulse Rate 101 H 05/05/18 09:28 Respiratory Rate 20 05/05/18 09:28 Blood Pressure 106/60 05/05/18 09:28 O2 Sat by Pulse Oximetry (%) 100 05/05/18 11:15 Constitutional: Yes: Calm, Other Cardiovascular: Yes: S1, S2 Respiratory: Yes: On BiPap Gastrointestinal: Yes: Normal Bowel Sounds, Soft Musculoskeletal: Yes: WNL Extremities: Yes: WNL Neurological: Yes: Alert, Weakness Labs: CBC, BMP 05/02/18 05:30 05/05/18 10:05 INR, PTT INR 1.24 (0.83-1.09) H 04/29/18 14:24 Assessment/Plan Problem List - Problems (1) Pneumonia Code(s): J18.9 - PNEUMONIA, UNSPECIFIED ORGANISM Qualifiers: Pneumonia type: due to unspecified organism Laterality: right Lung location: lower lobe of lung Qualified Code(s): J18.1 - Lobar pneumonia, unspecified organism (2) Respiratory failure Code(s): J96.90 - RESPIRATORY FAILURE, UNSP, UNSP W HYPOXIA OR HYPERCAPNIA (3) Metastatic breast cancer Code(s): C50.919 - MALIGNANT NEOPLASM OF UNSP SITE OF UNSPECIFIED FEMALE BREAST (4) Diabetes Code(s): E11.9 - TYPE 2 DIABETES MELLITUS WITHOUT COMPLICATIONS Qualifiers: Diabetes mellitus type: type 2 Diabetes mellitus complication status: without complication (5) Hypertension Code(s): I10 - ESSENTIAL (PRIMARY) HYPERTENSION (6) Hypothyroidism Code(s): E03.9 - HYPOTHYROIDISM, UNSPECIFIED (7) Vasogenic cerebral edema Code(s): G93.6 - CEREBRAL EDEMA patient receive iv abx plan continue abx monitor closely stein top abx tomorrow resp support rest as per the team await for all cx reports
[2018-05-05] MEDS: LIDOCAINE PATCH REMOVAL MC SCH (22:06)
[2018-05-05] MEDS: MIRTAZAPINE 15 MG TABLET (FP) PO SCH (22:07)
--- NOTE | 2018-05-05 23:23 | PN ---
Progress Note, Physician - Current Medication List Current Medications: Active Medications Acetaminophen (Tylenol -) 650 mg PO Q6H PRN PRN Reason: Fever Or Pain Last Admin: 05/05/18 09:58 Dose: 650 mg Albuterol/Ipratropium (Duoneb -) 1 amp NEB Q6H PRN PRN Reason: SHORTNESS OF BREATH Last Admin: 05/05/18 20:18 Dose: 1 amp Dexamethasone (Decadron -) 4 mg PO BID [facility] Last Admin: 05/05/18 23:14 Dose: Not Given Docusate Sodium (Colace -) 300 mg PO DAILY [facility] Last Admin: 05/05/18 09:58 Dose: 300 mg Furosemide (Lasix Injection -) 40 mg IVPUSH DAILY [facility] Last Admin: 05/05/18 09:58 Dose: 40 mg Heparin Sodium (Porcine) (Heparin -) 5,000 unit SQ TID [facility] Last Admin: 05/05/18 21:59 Dose: 5,000 unit Piperacillin Sod/Tazobactam (Sod 3.375 gm/ Dextrose) 50 mls @ 100 mls/hr IVPB Q8H-IV [facility]; Protocol Last Admin: 05/05/18 17:52 Dose: 100 mls/hr Insulin Aspart (Novolog Vial Sliding Scale -) 1 vial SQ ACHS [facility]; Protocol Last Admin: 05/05/18 22:07 Dose: Not Given Insulin Detemir (Levemir Vial) 35 units SQ BID@0700,2200 [facility] Last Admin: 05/05/18 22:06 Dose: Not Given Levetiracetam (Keppra -) 500 mg PO BID [facility] Last Admin: 05/05/18 23:15 Dose: Not Given Levothyroxine Sodium (Synthroid -) 50 mcg PO DAILY@0700 [facility] Last Admin: 05/05/18 06:42 Dose: 50 mcg Lidocaine (Lidoderm Patch -) 1 patch TP DAILY [facility] Last Admin: 05/05/18 09:59 Dose: 1 patch Mirtazapine (Remeron -) 15 mg PO HS [facility] Last Admin: 05/05/18 22:07 Dose: Not Given Miscellaneous (Lidoderm Patch Removal) 1 each MC DAILY@2200 [facility] Last Admin: 05/05/18 22:06 Dose: Not Given Morphine Sulfate (Morphine Sulfate) 2 mg IVPUSH Q6H PRN PRN Reason: PAIN LEVEL 6-10 Pantoprazole Sodium (Protonix -) 40 mg PO DAILY [facility] Last Admin: 05/05/18 09:59 Dose: 40 mg Polyethylene Glycol (Miralax (For Daily Use) -) 17 gm PO TID [facility] Last Admin: 05/05/18 22:06 Dose: Not Given Potassium Chloride (K-Dur -) 20 meq PO DAILY [facility] Last Admin: 05/05/18 09:58 Dose: 20 meq - Objective Vital Signs: Vital Signs Temperature 97.9 F 05/05/18 22:17 Pulse Rate 107 H 05/05/18 22:17 Respiratory Rate 19 05/05/18 22:17 Blood Pressure 115/70 05/05/18 22:17 O2 Sat by Pulse Oximetry (%) 99 05/05/18 21:30 Labs: CBC, BMP 05/02/18 05:30 05/05/18 10:05 INR, PTT INR 1.24 (0.83-1.09) H 04/29/18 14:24 Problem List - Problems (1) Pneumonia Code(s): J18.9 - PNEUMONIA, UNSPECIFIED ORGANISM Qualifiers: Pneumonia type: due to unspecified organism Laterality: right Lung location: lower lobe of lung Qualified Code(s): J18.1 - Lobar pneumonia, unspecified organism (2) Respiratory failure Code(s): J96.90 - RESPIRATORY FAILURE, UNSP, UNSP W HYPOXIA OR HYPERCAPNIA (3) Metastatic breast cancer Code(s): C50.919 - MALIGNANT NEOPLASM OF UNSP SITE OF UNSPECIFIED FEMALE BREAST (4) Diabetes Code(s): E11.9 - TYPE 2 DIABETES MELLITUS WITHOUT COMPLICATIONS Qualifiers: Diabetes mellitus type: type 2 Diabetes mellitus complication status: without complication (5) Hypertension Code(s): I10 - ESSENTIAL (PRIMARY) HYPERTENSION (6) Hypothyroidism Code(s): E03.9 - HYPOTHYROIDISM, UNSPECIFIED (7) Vasogenic cerebral edema Code(s): G93.6 - CEREBRAL EDEMA
[2018-05-05] MEDS ORDERED: ACETAMINOPHEN 1000 MG/100 ML VIAL (NON FORMULARY) IVPB ONE (23:45)
[2018-05-05] MEDS: levETIRAcetam 500 MG/5 ML INJECTION VIAL IVPB SCH (23:52)
[2018-05-06] MEDS ORDERED: DEXTROSE 5%-WATER - 50 ML IVPB ONE ×3 (01:50→15:24)
[2018-05-06] MEDS ORDERED: PIPERACILLIN/TAZOBACTAM 3.375 GM VIAL IVPB ONE ×3 (01:50→15:24)
[2018-05-06] MEDS: PIPERACILLIN/TAZOB 3.375 GM 3.375 GM in DEXTROSE 5%-WATER - 50 ML IVPB SCH ×3 (01:53→17:23)
[2018-05-06] MEDS: POLYETHYLENE GLYCOL 3350 119 GM BTL PO SCH ×3 (06:35→22:04)
[2018-05-06] MEDS: INSULIN SLIDING SCALE (NOVOLOG) 1 VIAL SQ SCH ×4 (06:36→22:19)
[2018-05-06] MEDS: INSULIN (LEVEMIR) 100 UNITS/ML UNITS SQ SCH ×2 (06:45→22:47)
[2018-05-06] MEDS: HEPARIN NA (PORCINE) 5,000 UNITS/ML 1ML VIAL SQ SCH ×3 (06:46→22:06)
[2018-05-06] MEDS: LEVOTHYROXINE NA 50 MCG TABLET (FP) PO SCH (06:46)
[2018-05-06 07:28] LABS: BASO % 0.5 % (0-2.0); HEMATOCRIT 30.7 % (32.4-45.2); LYMPH % 4.4 % (8-40); MCH 21.5 pg (25.7-33.7); MCHC 29.3 g/dl (32.0-36.0); MEAN CELL VOLUME 73.4 fl (80-96); MEAN PLT VOLUME 8.1 fl (7.5-11.1); MONO % 4.3 % (3.8-10.2); NEUT % 90.8 % (42.8-82.8); PLATELET COUNT 330 K/MM3 (134-434); RBC 4.18 M/mm3 (3.60-5.2); RDW 20.8 % (11.6-15.6); WHITE BLOOD COUNT 10.6 K/mm3 (4.0-10.0)
[2018-05-06 08:21] LABS: ALBUMIN 2.5 g/dl (3.4-5.0); ALK PHOS 179 U/L (45-117); ANION GAP 9 MMOL/L (8-16); BILIRUBIN,TOTAL 0.5 mg/dL (0.2-1); BLOOD UREA NITROGEN 29 mg/dL (7-18); CALCIUM 9.4 mg/dL (8.5-10.1); CHLORIDE 111 mmol/L (98-107); CO2 27 mmol/L (21-32); CREATININE 0.6 mg/dL (0.55-1.3); GLUCOSE,RANDOM 195 mg/dL (74-106); POTASSIUM 3.8 mmol/L (3.5-5.1); SGOT/AST 211 U/L (15-37); SGPT/ALT 44 U/L (13-61); SODIUM 147 mmol/L (136-145); TOT PROT 6.1 g/dl (6.4-8.2)
--- NOTE | 2018-05-06 09:36 | PN ---
Progress Note, Physician Chief Complaint: No chest pain or SOB above baseline Was complaining of leg pain in upper thigh which improved with change of position of bed TELE: NSR - Current Medication List Current Medications: Active Medications Acetaminophen (Tylenol -) 650 mg PO Q6H PRN PRN Reason: Fever Or Pain Last Admin: 05/05/18 09:58 Dose: 650 mg Dexamethasone Sodium Phosphate (Decadron Injection -) 4 mg IVPUSH BID [facility] Last Admin: 05/06/18 00:00 Dose: 4 mg Docusate Sodium (Colace -) 300 mg PO DAILY [facility] Last Admin: 05/05/18 09:58 Dose: 300 mg Furosemide (Lasix Injection -) 40 mg IVPUSH DAILY [facility] Last Admin: 05/05/18 09:58 Dose: 40 mg Heparin Sodium (Porcine) (Heparin -) 5,000 unit SQ TID [facility] Last Admin: 05/06/18 06:46 Dose: 5,000 unit Piperacillin Sod/Tazobactam (Sod 3.375 gm/ Dextrose) 50 mls @ 100 mls/hr IVPB Q8H-IV [facility]; Protocol Last Admin: 05/06/18 01:53 Dose: 100 mls/hr Insulin Aspart (Novolog Vial Sliding Scale -) 1 vial SQ ACHS [facility]; Protocol Last Admin: 05/06/18 06:36 Dose: 2 units Insulin Detemir (Levemir Vial) 35 units SQ BID@0700,2200 [facility] Last Admin: 05/06/18 06:45 Dose: Not Given Levetiracetam (Keppra Injection -) 500 mg IVPB BID [facility] Last Admin: 05/05/18 23:52 Dose: 500 mg Levothyroxine Sodium (Synthroid -) 50 mcg PO DAILY@0700 [facility] Last Admin: 05/06/18 06:46 Dose: 50 mcg Lidocaine (Lidoderm Patch -) 1 patch TP DAILY [facility] Last Admin: 05/05/18 09:59 Dose: 1 patch Mirtazapine (Remeron -) 15 mg PO HS [facility] Last Admin: 05/05/18 22:07 Dose: Not Given Miscellaneous (Lidoderm Patch Removal) 1 each MC DAILY@2200 [facility] Last Admin: 05/05/18 22:06 Dose: Not Given Morphine Sulfate (Morphine Sulfate) 2 mg IVPUSH Q6H PRN PRN Reason: PAIN LEVEL 6-10 Pantoprazole Sodium (Protonix -) 40 mg PO DAILY [facility] Last Admin: 05/05/18 09:59 Dose: 40 mg Polyethylene Glycol (Miralax (For Daily Use) -) 17 gm PO TID [facility] Last Admin: 05/06/18 06:35 Dose: Not Given Potassium Chloride (K-Dur -) 20 meq PO DAILY [facility] Last Admin: 05/05/18 09:58 Dose: 20 meq - Objective Vital Signs: Vital Signs Temperature 98.5 F 05/06/18 02:00 Pulse Rate 93 H 05/06/18 02:00 Respiratory Rate 20 05/06/18 02:00 Blood Pressure 109/72 05/06/18 02:00 O2 Sat by Pulse Oximetry (%) 99 05/06/18 07:36 Constitutional: Yes: No Distress, Calm Eyes: Yes: Conjunctiva Clear Cardiovascular: Yes: Regular Rate and Rhythm Respiratory: Yes: CTA Bilaterally (no rales or wheezing.) Gastrointestinal: Yes: Soft Edema: No Neurological: Yes: Alert, Oriented ...Motor Strength: WNL Labs: CBC, BMP 05/06/18 06:00 05/06/18 06:00 INR, PTT INR 1.24 (0.83-1.09) H 04/29/18 14:24 - ....Imaging EKG: Image Reviewed Problem List - Problems (1) Acute on chronic diastolic CHF (congestive heart failure) Code(s): I50.33 - ACUTE ON CHRONIC DIASTOLIC (CONGESTIVE) HEART FAILURE (2) Metastatic breast cancer Code(s): C50.919 - MALIGNANT NEOPLASM OF UNSP SITE OF UNSPECIFIED FEMALE BREAST (3) Pneumonia Code(s): J18.9 - PNEUMONIA, UNSPECIFIED ORGANISM Qualifiers: Pneumonia type: due to unspecified organism Laterality: right Lung location: lower lobe of lung Qualified Code(s): J18.1 - Lobar pneumonia, unspecified organism (4) Respiratory failure Code(s): J96.90 - RESPIRATORY FAILURE, UNSP, UNSP W HYPOXIA OR HYPERCAPNIA (5) Cerebral edema Code(s): G93.6 - CEREBRAL EDEMA Assessment/Plan IMP: Metastatic breast cancer Lung consolidations: PNA? vs mets Pleural effusions Acute on chronic diastolic CHF REC: 1. Clinically mildly improved: Can switch to PO Lasix today 2. Supplimental O2, NIPPV 3. DVT prophylaxis as per PMD 4. Palliative care consult planned to define goals of care
[2018-05-06 09:49] LABS: ANISOCYTOSIS 1+; MACROCYTOSIS 0; PLATELET ESTIMATE NORMAL; TARGET CELLS 1+
[2018-05-06] MEDS: ACETAMINOPHEN 325 MG TABLET (FP) PO PRN (10:25)
[2018-05-06] MEDS: POTASSIUM CHLORIDE TABS 20 MEQ TABLET.ER (FP) PO SCH (10:26)
[2018-05-06] MEDS: DEXAMETHASONE SOD PHOSPHATE 4 MG/1 ML VIAL IVPUSH SCH ×3 (10:26→22:03)
[2018-05-06] MEDS: FUROSEMIDE 40 MG TABLET (FP) PO SCH (10:26)
[2018-05-06] MEDS: PANTOPRAZOLE 40 MG TABLET (FP) PO SCH (10:26)
[2018-05-06] MEDS: levETIRAcetam 500 MG/5 ML INJECTION VIAL IVPB SCH ×2 (10:26→22:03)
[2018-05-06] MEDS: DOCUSATE SODIUM 100 MG CAPSULE (FP) PO SCH (10:27)
[2018-05-06] MEDS: LIDOCAINE 5% TOPICAL PATCH TP SCH (10:29)
--- NOTE | 2018-05-06 11:35 | PN ---
Progress Note, Physician History of Present Illness: pulmonary sleepy on bipap,comfortable,-resp distress - Current Medication List Current Medications: Active Medications Acetaminophen (Tylenol -) 650 mg PO Q6H PRN PRN Reason: Fever Or Pain Last Admin: 05/06/18 10:25 Dose: 650 mg Dexamethasone Sodium Phosphate (Decadron Injection -) 4 mg IVPUSH BID [facility] Last Admin: 05/06/18 10:26 Dose: 4 mg Docusate Sodium (Colace -) 300 mg PO DAILY [facility] Last Admin: 05/06/18 10:27 Dose: 300 mg Furosemide (Lasix -) 40 mg PO DAILY [facility] Last Admin: 05/06/18 10:26 Dose: 40 mg Heparin Sodium (Porcine) (Heparin -) 5,000 unit SQ TID [facility] Last Admin: 05/06/18 06:46 Dose: 5,000 unit Piperacillin Sod/Tazobactam (Sod 3.375 gm/ Dextrose) 50 mls @ 100 mls/hr IVPB Q8H-IV [facility]; Protocol Last Admin: 05/06/18 10:26 Dose: 100 mls/hr Insulin Aspart (Novolog Vial Sliding Scale -) 1 vial SQ ACHS [facility]; Protocol Last Admin: 05/06/18 06:36 Dose: 2 units Insulin Detemir (Levemir Vial) 35 units SQ BID@0700,2200 [facility] Last Admin: 05/06/18 06:45 Dose: Not Given Levetiracetam (Keppra Injection -) 500 mg IVPB BID [facility] Last Admin: 05/06/18 10:26 Dose: 500 mg Levothyroxine Sodium (Synthroid -) 50 mcg PO DAILY@0700 [facility] Last Admin: 05/06/18 06:46 Dose: 50 mcg Lidocaine (Lidoderm Patch -) 1 patch TP DAILY [facility] Last Admin: 05/06/18 10:29 Dose: 1 patch Mirtazapine (Remeron -) 15 mg PO HS [facility] Last Admin: 05/05/18 22:07 Dose: Not Given Miscellaneous (Lidoderm Patch Removal) 1 each MC DAILY@2200 [facility] Last Admin: 05/05/18 22:06 Dose: Not Given Morphine Sulfate (Morphine Sulfate) 2 mg IVPUSH Q6H PRN PRN Reason: PAIN LEVEL 6-10 Pantoprazole Sodium (Protonix -) 40 mg PO DAILY [facility] Last Admin: 05/06/18 10:26 Dose: 40 mg Polyethylene Glycol (Miralax (For Daily Use) -) 17 gm PO TID [facility] Last Admin: 05/06/18 06:35 Dose: Not Given Potassium Chloride (K-Dur -) 20 meq PO DAILY [facility] Last Admin: 05/06/18 10:26 Dose: 20 meq - Objective Vital Signs: Vital Signs Temperature 98.5 F 05/06/18 02:00 Pulse Rate 93 H 05/06/18 02:00 Respiratory Rate 20 05/06/18 02:00 Blood Pressure 109/72 05/06/18 02:00 O2 Sat by Pulse Oximetry (%) 97 05/06/18 11:24 Constitutional: Yes: Well Nourished, Other (sleepy) Eyes: Yes: WNL HENT: Yes: WNL Cardiovascular: Yes: Regular Rate and Rhythm, S1, S2 Respiratory: Yes: Wheezes (few scattered perla wheezes) Gastrointestinal: Yes: Normal Bowel Sounds, Soft Extremities: Yes: WNL Edema: No Labs: CBC, BMP 05/06/18 06:00 05/06/18 06:00 INR, PTT INR 1.24 (0.83-1.09) H 04/29/18 14:24 Assessment/Plan Problem List - Problems (1) Acute on chronic diastolic CHF (congestive heart failure) Code(s): I50.33 - ACUTE ON CHRONIC DIASTOLIC (CONGESTIVE) HEART FAILURE (2) Metastatic breast cancer Code(s): C50.919 - MALIGNANT NEOPLASM OF UNSP SITE OF UNSPECIFIED FEMALE BREAST (3) Pneumonia Code(s): J18.9 - PNEUMONIA, UNSPECIFIED ORGANISM Qualifiers: Pneumonia type: due to unspecified organism Laterality: right Lung location: lower lobe of lung Qualified Code(s): J18.1 - Lobar pneumonia, unspecified organism (4) Anemia Code(s): D64.9 - ANEMIA, UNSPECIFIED Qualifiers: Anemia type: unspecified type Qualified Code(s): D64.9 - Anemia, unspecified (5) Back pain Code(s): M54.9 - DORSALGIA, UNSPECIFIED Qualifiers: Back pain location: back pain in other location Chronicity: chronic Qualified Code(s): M54.9 - Dorsalgia, unspecified; G89.29 - Other chronic pain (6) Breast CA Code(s): C50.919 - MALIGNANT NEOPLASM OF UNSP SITE OF UNSPECIFIED FEMALE BREAST Qualifiers: Breast location: overlapping sites of breast Laterality: right (7) Diabetes Code(s): E11.9 - TYPE 2 DIABETES MELLITUS WITHOUT COMPLICATIONS Qualifiers: Diabetes mellitus type: type 2 Diabetes mellitus complication status: without complication (8) Generalized weakness Code(s): R53.1 - WEAKNESS (9) Hypertension Code(s): I10 - ESSENTIAL (PRIMARY) HYPERTENSION (10) Hypothyroidism Code(s): E03.9 - HYPOTHYROIDISM, UNSPECIFIED (11) Intracranial mass Code(s): R90.0 - INTCRN SPACE-OCCUPYING LESION FOUND ON DX IMAGING OF CNSL Assessment/Plan Lasix ABX as per ID O2 as needed to maintain saturation BD TX PRN NIPPV as needed Daily weight Analgesics decadron chest x-ray prognosis poor Pallative care evaluation DR COLLINS
--- NOTE | 2018-05-06 14:05 | PN ---
Progress Note, Physician History of Present Illness: on bipap still very weak - Current Medication List Current Medications: Active Medications Acetaminophen (Tylenol -) 650 mg PO Q6H PRN PRN Reason: Fever Or Pain Last Admin: 05/06/18 10:25 Dose: 650 mg Dexamethasone Sodium Phosphate (Decadron Injection -) 4 mg IVPUSH BID [facility] Last Admin: 05/06/18 10:26 Dose: 4 mg Docusate Sodium (Colace -) 300 mg PO DAILY [facility] Last Admin: 05/06/18 10:27 Dose: 300 mg Furosemide (Lasix -) 40 mg PO DAILY [facility] Last Admin: 05/06/18 10:26 Dose: 40 mg Heparin Sodium (Porcine) (Heparin -) 5,000 unit SQ TID [facility] Last Admin: 05/06/18 06:46 Dose: 5,000 unit Piperacillin Sod/Tazobactam (Sod 3.375 gm/ Dextrose) 50 mls @ 100 mls/hr IVPB Q8H-IV [facility]; Protocol Last Admin: 05/06/18 10:26 Dose: 100 mls/hr Insulin Aspart (Novolog Vial Sliding Scale -) 1 vial SQ ACHS [facility]; Protocol Last Admin: 05/06/18 12:45 Dose: Not Given Insulin Detemir (Levemir Vial) 35 units SQ BID@0700,2200 [facility] Last Admin: 05/06/18 06:45 Dose: Not Given Levetiracetam (Keppra Injection -) 500 mg IVPB BID [facility] Last Admin: 05/06/18 10:26 Dose: 500 mg Levothyroxine Sodium (Synthroid -) 50 mcg PO DAILY@0700 [facility] Last Admin: 05/06/18 06:46 Dose: 50 mcg Lidocaine (Lidoderm Patch -) 1 patch TP DAILY [facility] Last Admin: 05/06/18 10:29 Dose: 1 patch Mirtazapine (Remeron -) 15 mg PO HS [facility] Last Admin: 05/05/18 22:07 Dose: Not Given Miscellaneous (Lidoderm Patch Removal) 1 each MC DAILY@2200 [facility] Last Admin: 05/05/18 22:06 Dose: Not Given Morphine Sulfate (Morphine Sulfate) 2 mg IVPUSH Q6H PRN PRN Reason: PAIN LEVEL 6-10 Pantoprazole Sodium (Protonix -) 40 mg PO DAILY [facility] Last Admin: 05/06/18 10:26 Dose: 40 mg Polyethylene Glycol (Miralax (For Daily Use) -) 17 gm PO TID [facility] Last Admin: 05/06/18 06:35 Dose: Not Given Potassium Chloride (K-Dur -) 20 meq PO DAILY [facility] Last Admin: 05/06/18 10:26 Dose: 20 meq - Objective Vital Signs: Vital Signs Temperature 97.9 F 05/06/18 11:46 Pulse Rate 102 H 05/06/18 11:46 Respiratory Rate 20 05/06/18 11:46 Blood Pressure 116/56 L 05/06/18 11:46 O2 Sat by Pulse Oximetry (%) 97 05/06/18 11:24 Constitutional: Yes: No Distress, Calm Cardiovascular: Yes: S1, S2 Respiratory: Yes: On BiPap Gastrointestinal: Yes: Normal Bowel Sounds, Soft Musculoskeletal: Yes: WNL Extremities: Yes: WNL Neurological: Yes: Alert, Weakness Labs: CBC, BMP 05/06/18 06:00 05/06/18 06:00 INR, PTT INR 1.24 (0.83-1.09) H 04/29/18 14:24 Assessment/Plan Problem List - Problems (1) Pneumonia Code(s): J18.9 - PNEUMONIA, UNSPECIFIED ORGANISM Qualifiers: Pneumonia type: due to unspecified organism Laterality: right Lung location: lower lobe of lung Qualified Code(s): J18.1 - Lobar pneumonia, unspecified organism (2) Respiratory failure Code(s): J96.90 - RESPIRATORY FAILURE, UNSP, UNSP W HYPOXIA OR HYPERCAPNIA (3) Metastatic breast cancer Code(s): C50.919 - MALIGNANT NEOPLASM OF UNSP SITE OF UNSPECIFIED FEMALE BREAST (4) Diabetes Code(s): E11.9 - TYPE 2 DIABETES MELLITUS WITHOUT COMPLICATIONS Qualifiers: Diabetes mellitus type: type 2 Diabetes mellitus complication status: without complication (5) Hypertension Code(s): I10 - ESSENTIAL (PRIMARY) HYPERTENSION (6) Hypothyroidism Code(s): E03.9 - HYPOTHYROIDISM, UNSPECIFIED (7) Vasogenic cerebral edema Code(s): G93.6 - CEREBRAL EDEMA patient receive iv abx plan stopped abx monitor closely resp support rest as per the team await for all cx reports
[2018-05-06 18:28] LABS: ANION GAP 11 MMOL/L (8-16); BLOOD UREA NITROGEN 27 mg/dL (7-18); CALCIUM 9.4 mg/dL (8.5-10.1); CHLORIDE 109 mmol/L (98-107); CO2 26 mmol/L (21-32); CREATININE 0.7 mg/dL (0.55-1.3); POTASSIUM 3.5 mmol/L (3.5-5.1); SODIUM 146 mmol/L (136-145)
[2018-05-06 18:33] LABS: GLUCOSE,RANDOM 410 mg/dL (74-106)
[2018-05-06] MEDS: LIDOCAINE PATCH REMOVAL MC SCH (22:04)
[2018-05-06] MEDS: MIRTAZAPINE 15 MG TABLET (FP) PO SCH (22:04)
--- NOTE | 2018-05-06 23:34 | PN ---
Progress Note, Physician History of Present Illness: No new changes - Current Medication List Current Medications: Active Medications Acetaminophen (Tylenol -) 650 mg PO Q6H PRN PRN Reason: Fever Or Pain Last Admin: 05/06/18 10:25 Dose: 650 mg Dexamethasone Sodium Phosphate (Decadron Injection -) 4 mg IVPUSH BID [facility] Last Admin: 05/06/18 22:03 Dose: 4 mg Docusate Sodium (Colace -) 300 mg PO DAILY [facility] Last Admin: 05/06/18 10:27 Dose: 300 mg Furosemide (Lasix -) 40 mg PO DAILY [facility] Last Admin: 05/06/18 10:26 Dose: 40 mg Heparin Sodium (Porcine) (Heparin -) 5,000 unit SQ TID [facility] Last Admin: 05/06/18 22:06 Dose: 5,000 unit Piperacillin Sod/Tazobactam (Sod 3.375 gm/ Dextrose) 50 mls @ 100 mls/hr IVPB Q8H-IV [facility]; Protocol Last Admin: 05/06/18 17:23 Dose: 100 mls/hr Insulin Aspart (Novolog Vial Sliding Scale -) 1 vial SQ ACHS [facility]; Protocol Last Admin: 05/06/18 22:19 Dose: 4 units Insulin Detemir (Levemir Vial) 35 units SQ BID@0700,2200 [facility] Last Admin: 05/06/18 22:47 Dose: Not Given Levetiracetam (Keppra Injection -) 500 mg IVPB BID [facility] Last Admin: 05/06/18 22:03 Dose: 500 mg Levothyroxine Sodium (Synthroid -) 50 mcg PO DAILY@0700 [facility] Last Admin: 05/06/18 06:46 Dose: 50 mcg Lidocaine (Lidoderm Patch -) 1 patch TP DAILY [facility] Last Admin: 05/06/18 10:29 Dose: 1 patch Mirtazapine (Remeron -) 15 mg PO HS [facility] Last Admin: 05/06/18 22:04 Dose: 15 mg Miscellaneous (Lidoderm Patch Removal) 1 each MC DAILY@2200 [facility] Last Admin: 05/05/18 22:06 Dose: Not Given Morphine Sulfate (Morphine Sulfate) 2 mg IVPUSH Q6H PRN PRN Reason: PAIN LEVEL 6-10 Pantoprazole Sodium (Protonix -) 40 mg PO DAILY [facility] Last Admin: 05/06/18 10:26 Dose: 40 mg Polyethylene Glycol (Miralax (For Daily Use) -) 17 gm PO TID [facility] Last Admin: 05/06/18 22:04 Dose: Not Given Potassium Chloride (K-Dur -) 20 meq PO DAILY [facility] Last Admin: 05/06/18 10:26 Dose: 20 meq - Objective Vital Signs: Vital Signs Temperature 98.3 F 05/06/18 17:00 Pulse Rate 111 H 05/06/18 17:00 Respiratory Rate 22 H 05/06/18 17:00 Blood Pressure 115/81 05/06/18 17:00 O2 Sat by Pulse Oximetry (%) 97 05/06/18 20:56 Constitutional: Yes: Mild Distress Neck: Yes: WNL, Supple Cardiovascular: Yes: Tachycardia Respiratory: Yes: Diminished Gastrointestinal: Yes: WNL, Normal Bowel Sounds, Soft Edema: LLE: Trace, RLE: Trace Labs: CBC, BMP 05/06/18 06:00 05/06/18 17:23 INR, PTT INR 1.24 (0.83-1.09) H 04/29/18 14:24 Problem List - Problems (1) Metastatic breast cancer Assessment/Plan: Palliative care Spoke to pt's and daughter about poor prognosis I informed them that pt is terminal and in process of dying However they have not come to any conclusion about DNR or hospice Will need comtinued discussions due to poor prognosis Code(s): C50.919 - MALIGNANT NEOPLASM OF UNSP SITE OF UNSPECIFIED FEMALE BREAST (2) Pneumonia Assessment/Plan: Cont IV zosyn Cont nebulizers Code(s): J18.9 - PNEUMONIA, UNSPECIFIED ORGANISM Qualifiers: Pneumonia type: due to unspecified organism Laterality: right Lung location: lower lobe of lung Qualified Code(s): J18.1 - Lobar pneumonia, unspecified organism (3) Respiratory failure Assessment/Plan: Multifactorial Lung mets/infitrate/effusions Cont nebulizers Poor prognosis Code(s): J96.90 - RESPIRATORY FAILURE, UNSP, UNSP W HYPOXIA OR HYPERCAPNIA (4) Diabetes Assessment/Plan: Cont sliding scale w/ coverage Code(s): E11.9 - TYPE 2 DIABETES MELLITUS WITHOUT COMPLICATIONS Qualifiers: Diabetes mellitus type: type 2 Diabetes mellitus complication status: without complication (5) Hypertension Assessment/Plan: BP stable Code(s): I10 - ESSENTIAL (PRIMARY) HYPERTENSION (6) Hypothyroidism Assessment/Plan: Cont levothyroxine Code(s): E03.9 - HYPOTHYROIDISM, UNSPECIFIED (7) Vasogenic cerebral edema Assessment/Plan: Will change decadron to po Code(s): G93.6 - CEREBRAL EDEMA (8) Seizure Assessment/Plan: Change to po keppra Code(s): R56.9 - UNSPECIFIED CONVULSIONS
[2018-05-07] MEDS ORDERED: PIPERACILLIN/TAZOBACTAM 3.375 GM VIAL IVPB ONE ×2 (01:35→09:44)
[2018-05-07] MEDS ORDERED: DEXTROSE 5%-WATER - 50 ML IVPB ONE ×2 (01:35→09:44)
[2018-05-07] MEDS: PIPERACILLIN/TAZOB 3.375 GM 3.375 GM in DEXTROSE 5%-WATER - 50 ML IVPB SCH (01:45)
[2018-05-07] MEDS: POLYETHYLENE GLYCOL 3350 119 GM BTL PO SCH ×3 (05:44→23:06)
[2018-05-07] MEDS: HEPARIN NA (PORCINE) 5,000 UNITS/ML 1ML VIAL SQ SCH ×3 (05:53→23:05)
[2018-05-07] MEDS: INSULIN (LEVEMIR) 100 UNITS/ML UNITS SQ SCH ×2 (06:15→23:05)
[2018-05-07] MEDS: INSULIN SLIDING SCALE (NOVOLOG) 1 VIAL SQ SCH ×4 (06:16→23:07)
[2018-05-07] MEDS: LEVOTHYROXINE NA 50 MCG TABLET (FP) PO SCH (06:17)
[2018-05-07 06:54] LABS: ANION GAP 9 MMOL/L (8-16); BLOOD UREA NITROGEN 25 mg/dL (7-18); CALCIUM 9.8 mg/dL (8.5-10.1); CHLORIDE 110 mmol/L (98-107); CO2 28 mmol/L (21-32); CREATININE 0.5 mg/dL (0.55-1.3); GLUCOSE,RANDOM 181 mg/dL (74-106); POTASSIUM 3.8 mmol/L (3.5-5.1); SODIUM 147 mmol/L (136-145)
--- NOTE | 2018-05-07 08:33 | PN ---
Progress Note, Physician Chief Complaint: comfortable No distress Denies CP or SOB TELE: NSR - Current Medication List Current Medications: Active Medications Acetaminophen (Tylenol -) 650 mg PO Q6H PRN PRN Reason: Fever Or Pain Last Admin: 05/06/18 10:25 Dose: 650 mg Dexamethasone (Decadron -) 4 mg PO BID [facility] Docusate Sodium (Colace -) 300 mg PO DAILY [facility] Last Admin: 05/06/18 10:27 Dose: 300 mg Furosemide (Lasix -) 40 mg PO DAILY [facility] Last Admin: 05/06/18 10:26 Dose: 40 mg Heparin Sodium (Porcine) (Heparin -) 5,000 unit SQ TID [facility] Last Admin: 05/07/18 05:53 Dose: 5,000 unit Piperacillin Sod/Tazobactam (Sod 3.375 gm/ Dextrose) 50 mls @ 100 mls/hr IVPB Q8H-IV [facility]; Protocol Last Admin: 05/07/18 01:45 Dose: 100 mls/hr Insulin Aspart (Novolog Vial Sliding Scale -) 1 vial SQ ACHS [facility]; Protocol Last Admin: 05/07/18 06:16 Dose: 2 units Insulin Detemir (Levemir Vial) 35 units SQ BID@0700,2200 [facility] Last Admin: 05/07/18 06:15 Dose: Not Given Levetiracetam (Keppra -) 500 mg PO BID [facility] Levothyroxine Sodium (Synthroid -) 50 mcg PO DAILY@0700 [facility] Last Admin: 05/07/18 06:17 Dose: Not Given Lidocaine (Lidoderm Patch -) 1 patch TP DAILY [facility] Last Admin: 05/06/18 10:29 Dose: 1 patch Mirtazapine (Remeron -) 15 mg PO HS [facility] Last Admin: 05/06/18 22:04 Dose: 15 mg Miscellaneous (Lidoderm Patch Removal) 1 each MC DAILY@2200 [facility] Last Admin: 05/05/18 22:06 Dose: Not Given Morphine Sulfate (Morphine Sulfate) 2 mg IVPUSH Q6H PRN PRN Reason: PAIN LEVEL 6-10 Pantoprazole Sodium (Protonix -) 40 mg PO DAILY [facility] Last Admin: 05/06/18 10:26 Dose: 40 mg Polyethylene Glycol (Miralax (For Daily Use) -) 17 gm PO TID [facility] Last Admin: 05/07/18 05:44 Dose: Not Given Potassium Chloride (K-Dur -) 20 meq PO DAILY [facility] Last Admin: 05/06/18 10:26 Dose: 20 meq - Objective Vital Signs: Vital Signs Temperature 97.9 F 05/07/18 04:54 Pulse Rate 81 05/07/18 04:54 Respiratory Rate 20 05/07/18 04:54 Blood Pressure 108/70 05/07/18 04:54 O2 Sat by Pulse Oximetry (%) 97 05/07/18 08:29 Constitutional: Yes: No Distress Cardiovascular: Yes: Regular Rate and Rhythm Respiratory: Yes: CTA Bilaterally Gastrointestinal: Yes: Soft Edema: No Labs: CBC, BMP 05/06/18 06:00 05/07/18 05:30 INR, PTT INR 1.24 (0.83-1.09) H 04/29/18 14:24 - ....Imaging EKG: Image Reviewed Problem List - Problems (1) Acute on chronic diastolic CHF (congestive heart failure) Code(s): I50.33 - ACUTE ON CHRONIC DIASTOLIC (CONGESTIVE) HEART FAILURE (2) Metastatic breast cancer Code(s): C50.919 - MALIGNANT NEOPLASM OF UNSP SITE OF UNSPECIFIED FEMALE BREAST (3) Pneumonia Code(s): J18.9 - PNEUMONIA, UNSPECIFIED ORGANISM Qualifiers: Pneumonia type: due to unspecified organism Laterality: right Lung location: lower lobe of lung Qualified Code(s): J18.1 - Lobar pneumonia, unspecified organism (4) Respiratory failure Code(s): J96.90 - RESPIRATORY FAILURE, UNSP, UNSP W HYPOXIA OR HYPERCAPNIA (5) Cerebral edema Code(s): G93.6 - CEREBRAL EDEMA Assessment/Plan IMP: Metastatic breast cancer Lung consolidations: PNA? vs mets Pleural effusions Acute on chronic diastolic CHF REC: 1. Clinically mildly improved: On PO Lasix 2. Supplimental O2, NIPPV 3. DVT prophylaxis as per PMD 4. Palliative care consult planned to define goals of care Can d/c telemetry
[2018-05-07] MEDS: POTASSIUM CHLORIDE TABS 20 MEQ TABLET.ER (FP) PO SCH (10:15)
[2018-05-07] MEDS: PANTOPRAZOLE 40 MG TABLET (FP) PO SCH (10:15)
[2018-05-07] MEDS: DEXAMETHASONE 4 MG TABLET (FP) PO SCH ×2 (10:15→23:05)
[2018-05-07] MEDS: ACETAMINOPHEN 325 MG TABLET (FP) PO PRN ×2 (10:15→18:51)
[2018-05-07] MEDS: LIDOCAINE 5% TOPICAL PATCH TP SCH (10:15)
[2018-05-07] MEDS: levETIRAcetam 500 MG TABLET (FP) PO SCH ×2 (10:15→23:07)
[2018-05-07] MEDS: FUROSEMIDE 40 MG TABLET (FP) PO SCH (10:15)
[2018-05-07] MEDS: DOCUSATE SODIUM 100 MG CAPSULE (FP) PO SCH (10:16)
--- NOTE | 2018-05-07 13:20 | PN ---
Progress Note, Physician History of Present Illness: pulmonary more alert on bipap,comfortable,-resp distress - Current Medication List Current Medications: Active Medications Acetaminophen (Tylenol -) 650 mg PO Q6H PRN PRN Reason: Fever Or Pain Last Admin: 05/07/18 10:15 Dose: 650 mg Dexamethasone (Decadron -) 4 mg PO BID [facility] Last Admin: 05/07/18 10:15 Dose: 4 mg Docusate Sodium (Colace -) 300 mg PO DAILY [facility] Last Admin: 05/07/18 10:16 Dose: 300 mg Furosemide (Lasix -) 40 mg PO DAILY [facility] Last Admin: 05/07/18 10:15 Dose: 40 mg Heparin Sodium (Porcine) (Heparin -) 5,000 unit SQ TID [facility] Last Admin: 05/07/18 13:10 Dose: 5,000 unit Insulin Aspart (Novolog Vial Sliding Scale -) 1 vial SQ [facility]; Protocol Last Admin: 05/07/18 12:18 Dose: Not Given Insulin Detemir (Levemir Vial) 35 units SQ BID@0700,2200 [facility] Last Admin: 05/07/18 06:15 Dose: Not Given Levetiracetam (Keppra -) 500 mg PO BID [facility] Last Admin: 05/07/18 10:15 Dose: 500 mg Levothyroxine Sodium (Synthroid -) 50 mcg PO DAILY@0700 [facility] Last Admin: 05/07/18 06:17 Dose: Not Given Lidocaine (Lidoderm Patch -) 1 patch TP DAILY [facility] Last Admin: 05/07/18 10:15 Dose: 1 patch Mirtazapine (Remeron -) 15 mg PO HS [facility] Last Admin: 05/06/18 22:04 Dose: 15 mg Miscellaneous (Lidoderm Patch Removal) 1 each MC DAILY@2200 [facility] Last Admin: 05/05/18 22:06 Dose: Not Given Morphine Sulfate (Morphine Sulfate) 2 mg IVPUSH Q6H PRN PRN Reason: PAIN LEVEL 6-10 Pantoprazole Sodium (Protonix -) 40 mg PO DAILY [facility] Last Admin: 05/07/18 10:15 Dose: 40 mg Polyethylene Glycol (Miralax (For Daily Use) -) 17 gm PO TID [facility] Last Admin: 05/07/18 13:10 Dose: 17 gm Potassium Chloride (K-Dur -) 20 meq PO DAILY [facility] Last Admin: 12/17/18 10:15 Dose: 20 meq - Objective Vital Signs: Vital Signs Temperature 97.9 F 05/07/18 04:54 Pulse Rate 81 05/07/18 04:54 Respiratory Rate 20 05/07/18 04:54 Blood Pressure 108/70 05/07/18 04:54 O2 Sat by Pulse Oximetry (%) 97 05/07/18 08:29 Constitutional: Yes: Well Nourished, Calm Eyes: Yes: WNL HENT: Yes: WNL Neck: Yes: WNL Cardiovascular: Yes: Regular Rate and Rhythm, S1, S2 Respiratory: Yes: Wheezes (few scattered wheezes) Gastrointestinal: Yes: Normal Bowel Sounds, Soft Extremities: Yes: WNL Edema: Yes Labs: CBC, BMP 05/07/18 05:30 INR, PTT INR 1.24 (0.83-1.09) H 04/29/18 14:24 Assessment/Plan Problem List - Problems (1) Acute on chronic diastolic CHF (congestive heart failure) Code(s): I50.33 - ACUTE ON CHRONIC DIASTOLIC (CONGESTIVE) HEART FAILURE (2) Metastatic breast cancer Code(s): C50.919 - MALIGNANT NEOPLASM OF UNSP SITE OF UNSPECIFIED FEMALE BREAST (3) Pneumonia Code(s): J18.9 - PNEUMONIA, UNSPECIFIED ORGANISM Qualifiers: Pneumonia type: due to unspecified organism Laterality: right Lung location: lower lobe of lung Qualified Code(s): J18.1 - Lobar pneumonia, unspecified organism (4) Anemia Code(s): D64.9 - ANEMIA, UNSPECIFIED Qualifiers: Anemia type: unspecified type Qualified Code(s): D64.9 - Anemia, unspecified (5) Back pain Code(s): M54.9 - DORSALGIA, UNSPECIFIED Qualifiers: Back pain location: back pain in other location Chronicity: chronic Qualified Code(s): M54.9 - Dorsalgia, unspecified; G89.29 - Other chronic pain (6) Breast CA Code(s): C50.919 - MALIGNANT NEOPLASM OF UNSP SITE OF UNSPECIFIED FEMALE BREAST Qualifiers: Breast location: overlapping sites of breast Laterality: right (7) Diabetes Code(s): E11.9 - TYPE 2 DIABETES MELLITUS WITHOUT COMPLICATIONS Qualifiers: Diabetes mellitus type: type 2 Diabetes mellitus complication status: without complication (8) Generalized weakness Code(s): R53.1 - WEAKNESS (9) Hypertension Code(s): I10 - ESSENTIAL (PRIMARY) HYPERTENSION (10) Hypothyroidism Code(s): E03.9 - HYPOTHYROIDISM, UNSPECIFIED (11) Intracranial mass Code(s): R90.0 - INTCRN SPACE-OCCUPYING LESION FOUND ON DX IMAGING OF CNSL Assessment/Plan Lasix ABX as per ID O2 as needed to maintain saturation BD TX PRN NIPPV as needed Daily weight Analgesics decadron chest x-ray prognosis poor Pallative care evaluation DR COLLINS
--- NOTE | 2018-05-07 13:53 | PN ---
Progress Note, Physician - Current Medication List Current Medications: Active Medications Acetaminophen (Tylenol -) 650 mg PO Q6H PRN PRN Reason: Fever Or Pain Last Admin: 05/07/18 10:15 Dose: 650 mg Dexamethasone (Decadron -) 4 mg PO BID [facility] Last Admin: 05/07/18 10:15 Dose: 4 mg Docusate Sodium (Colace -) 300 mg PO DAILY [facility] Last Admin: 05/07/18 10:16 Dose: 300 mg Furosemide (Lasix -) 40 mg PO DAILY [facility] Last Admin: 05/07/18 10:15 Dose: 40 mg Heparin Sodium (Porcine) (Heparin -) 5,000 unit SQ TID [facility] Last Admin: 05/07/18 13:10 Dose: 5,000 unit Insulin Aspart (Novolog Vial Sliding Scale -) 1 vial SQ ACHS [facility]; Protocol Last Admin: 05/07/18 12:18 Dose: Not Given Insulin Detemir (Levemir Vial) 35 units SQ BID@0700,2200 [facility] Last Admin: 05/07/18 06:15 Dose: Not Given Levetiracetam (Keppra -) 500 mg PO BID [facility] Last Admin: 05/07/18 10:15 Dose: 500 mg Levothyroxine Sodium (Synthroid -) 50 mcg PO DAILY@0700 [facility] Last Admin: 05/07/18 06:17 Dose: Not Given Lidocaine (Lidoderm Patch -) 1 patch TP DAILY [facility] Last Admin: 05/07/18 10:15 Dose: 1 patch Mirtazapine (Remeron -) 15 mg PO HS [facility] Last Admin: 05/06/18 22:04 Dose: 15 mg Miscellaneous (Lidoderm Patch Removal) 1 each [facility] DAILY@2200 [facility] Last Admin: 05/05/18 22:06 Dose: Not Given Morphine Sulfate (Morphine Sulfate) 2 mg IVPUSH Q6H PRN PRN Reason: PAIN LEVEL 6-10 Pantoprazole Sodium (Protonix -) 40 mg PO DAILY [facility] Last Admin: 05/07/18 10:15 Dose: 40 mg Polyethylene Glycol (Miralax (For Daily Use) -) 17 gm PO TID [facility] Last Admin: 05/07/18 13:10 Dose: 17 gm Potassium Chloride (K-Dur -) 20 meq PO DAILY [facility] Last Admin: 05/07/18 10:15 Dose: 20 meq - Objective Vital Signs: Vital Signs Temperature 97.9 F 05/07/18 04:54 Pulse Rate 81 05/07/18 04:54 Respiratory Rate 20 05/07/18 04:54 Blood Pressure 108/70 05/07/18 04:54 O2 Sat by Pulse Oximetry (%) 97 05/07/18 08:29 Labs: CBC, BMP 05/06/18 06:00 05/07/18 05:30 INR, PTT INR 1.24 (0.83-1.09) H 04/29/18 14:24
--- NOTE | 2018-05-07 19:29 | PN ---
Progress Note, Physician History of Present Illness: Pt w/ increased agitation - Current Medication List Current Medications: Active Medications Acetaminophen (Tylenol -) 650 mg PO Q6H PRN PRN Reason: Fever Or Pain Last Admin: 05/07/18 18:51 Dose: 650 mg Dexamethasone (Decadron -) 4 mg PO BID [facility] Last Admin: 05/07/18 10:15 Dose: 4 mg Docusate Sodium (Colace -) 300 mg PO DAILY [facility] Last Admin: 05/07/18 10:16 Dose: 300 mg Furosemide (Lasix -) 40 mg PO DAILY [facility] Last Admin: 05/07/18 10:15 Dose: 40 mg Heparin Sodium (Porcine) (Heparin -) 5,000 unit SQ TID [facility] Last Admin: 05/07/18 13:10 Dose: 5,000 unit Insulin Aspart (Novolog Vial Sliding Scale -) 1 vial SQ [facility]; Protocol Last Admin: 05/07/18 18:52 Dose: 4 units Insulin Detemir (Levemir Vial) 35 units SQ BID@0700,2200 [facility] Last Admin: 05/07/18 06:15 Dose: Not Given Levetiracetam (Keppra -) 500 mg PO BID [facility] Last Admin: 05/07/18 10:15 Dose: 500 mg Levothyroxine Sodium (Synthroid -) 50 mcg PO DAILY@0700 [facility] Last Admin: 05/07/18 06:17 Dose: Not Given Lidocaine (Lidoderm Patch -) 1 patch TP DAILY [facility] Last Admin: 05/07/18 10:15 Dose: 1 patch Mirtazapine (Remeron -) 15 mg PO HS [facility] Last Admin: 05/06/18 22:04 Dose: 15 mg Miscellaneous (Lidoderm Patch Removal) 1 each MC DAILY@2200 [facility] Last Admin: 05/05/18 22:06 Dose: Not Given Morphine Sulfate (Morphine Sulfate) 2 mg IVPUSH Q6H PRN PRN Reason: PAIN LEVEL 6-10 Pantoprazole Sodium (Protonix -) 40 mg PO DAILY [facility] Last Admin: 05/07/18 10:15 Dose: 40 mg Polyethylene Glycol (Miralax (For Daily Use) -) 17 gm PO TID [facility] Last Admin: 05/07/18 13:10 Dose: 17 gm Potassium Chloride (K-Dur -) 20 meq PO DAILY [facility] Last Admin: 05/07/18 10:15 Dose: 20 meq - Objective Vital Signs: Vital Signs Temperature 98.8 F 05/07/18 17:00 Pulse Rate 93 H 05/07/18 17:00 Respiratory Rate 18 05/07/18 17:00 Blood Pressure 93/66 05/07/18 17:00 O2 Sat by Pulse Oximetry (%) 98 05/07/18 15:57 Neck: Yes: WNL, Supple Cardiovascular: Yes: WNL, Regular Rate and Rhythm Respiratory: Yes: WNL, Regular, CTA Bilaterally Gastrointestinal: Yes: WNL, Normal Bowel Sounds, Soft Edema: LLE: Trace, RLE: Trace Labs: CBC, BMP 05/06/18 06:00 05/07/18 05:30 INR, PTT INR 1.24 (0.83-1.09) H 04/29/18 14:24 Problem List - Problems (1) Metastatic breast cancer Assessment/Plan: Palliative care Spoke to pt's and daughter about poor prognosis I informed them that pt is terminal and in process of dying However they have not come to any conclusion about DNR or hospice Will need continued discussions about palliative care Code(s): C50.919 - MALIGNANT NEOPLASM OF UNSP SITE OF UNSPECIFIED FEMALE BREAST (2) Pneumonia Assessment/Plan: Cont IV zosyn Cont nebulizers Code(s): J18.9 - PNEUMONIA, UNSPECIFIED ORGANISM Qualifiers: Pneumonia type: due to unspecified organism Laterality: right Lung location: lower lobe of lung Qualified Code(s): J18.1 - Lobar pneumonia, unspecified organism (3) Respiratory failure Assessment/Plan: Multifactorial Lung mets/infitrate/effusions Cont nebulizers Poor prognosis Code(s): J96.90 - RESPIRATORY FAILURE, UNSP, UNSP W HYPOXIA OR HYPERCAPNIA (4) Diabetes Assessment/Plan: Cont sliding scale w/ coverage Code(s): E11.9 - TYPE 2 DIABETES MELLITUS WITHOUT COMPLICATIONS Qualifiers: Diabetes mellitus type: type 2 Diabetes mellitus complication status: without complication (5) Hypertension Assessment/Plan: BP stable Code(s): I10 - ESSENTIAL (PRIMARY) HYPERTENSION (6) Hypothyroidism Assessment/Plan: Cont levothyroxine Code(s): E03.9 - HYPOTHYROIDISM, UNSPECIFIED (7) Vasogenic cerebral edema Assessment/Plan: Will change decadron to po Code(s): G93.6 - CEREBRAL EDEMA (8) Seizure Assessment/Plan: Change to [facility] Code(s): R56.9 - UNSPECIFIED CONVULSIONS
[2018-05-07] MEDS: MIRTAZAPINE 15 MG TABLET (FP) PO SCH (23:05)
[2018-05-07] MEDS: LIDOCAINE PATCH REMOVAL MC SCH (23:06)
[2018-05-07] MEDS ORDERED: ALPRAZolam 0.25 MG TABLET PO ONE (23:45)
[2018-05-08] MEDS: ALPRAZolam 0.25 MG TABLET PO PRN ×3 (02:12→18:52)
[2018-05-08] MEDS: INSULIN SLIDING SCALE (NOVOLOG) 1 VIAL SQ SCH ×4 (06:30→23:27)
[2018-05-08] MEDS: HEPARIN NA (PORCINE) 5,000 UNITS/ML 1ML VIAL SQ SCH (06:30)
[2018-05-08] MEDS: POLYETHYLENE GLYCOL 3350 119 GM BTL PO SCH ×3 (06:30→23:21)
[2018-05-08] MEDS: LEVOTHYROXINE NA 50 MCG TABLET (FP) PO SCH (06:31)
[2018-05-08] MEDS: INSULIN (LEVEMIR) 100 UNITS/ML UNITS SQ SCH (06:31)
[2018-05-08] MEDS ORDERED: INSULIN (NOVOLOG) ASPART 100 UNITS/ML 10ML VIAL ONE (07:04)
[2018-05-08] MEDS: ACETAMINOPHEN 325 MG TABLET (FP) PO PRN ×2 (08:19→14:20)
--- NOTE | 2018-05-08 08:39 | PN ---
Progress Note, Physician Chief Complaint: denies CP Eating breakfast w/ aid - Current Medication List Current Medications: Active Medications Acetaminophen (Tylenol -) 650 mg PO Q6H PRN PRN Reason: Fever Or Pain Last Admin: 05/08/18 08:19 Dose: 650 mg Alprazolam (Xanax -) 0.25 mg PO Q8H PRN PRN Reason: AGITATION Last Admin: 05/08/18 02:12 Dose: 0.25 mg Dexamethasone (Decadron -) 4 mg PO BID [facility] Last Admin: 05/07/18 23:05 Dose: 4 mg Docusate Sodium (Colace -) 300 mg PO DAILY [facility] Last Admin: 05/07/18 10:16 Dose: 300 mg Furosemide (Lasix -) 40 mg PO DAILY [facility] Last Admin: 05/07/18 10:15 Dose: 40 mg Heparin Sodium (Porcine) (Heparin -) 5,000 unit SQ TID [facility] Last Admin: 05/08/18 06:30 Dose: 5,000 unit Insulin Aspart (Novolog Vial Sliding Scale -) 1 vial SQ [facility]; Protocol Last Admin: 05/08/18 06:30 Dose: 8 units Insulin Detemir (Levemir Vial) 35 units SQ BID@0700,2200 [facility] Last Admin: 05/08/18 06:31 Dose: 35 units Levetiracetam (Keppra -) 500 mg PO BID [facility] Last Admin: 05/07/18 23:07 Dose: 500 mg Levothyroxine Sodium (Synthroid -) 50 mcg PO DAILY@0700 [facility] Last Admin: 05/08/18 06:31 Dose: 50 mcg Lidocaine (Lidoderm Patch -) 1 patch TP DAILY [facility] Last Admin: 05/07/18 10:15 Dose: 1 patch Mirtazapine (Remeron -) 15 mg PO HS [facility] Last Admin: 05/07/18 23:05 Dose: 15 mg Miscellaneous (Lidoderm Patch Removal) 1 each MC DAILY@2200 [facility] Last Admin: 05/07/18 23:06 Dose: 1 each Morphine Sulfate (Morphine Sulfate) 2 mg IVPUSH Q6H PRN PRN Reason: PAIN LEVEL 6-10 Pantoprazole Sodium (Protonix -) 40 mg PO DAILY [facility] Last Admin: 05/07/18 10:15 Dose: 40 mg Polyethylene Glycol (Miralax (For Daily Use) -) 17 gm PO TID [facility] Last Admin: 05/08/18 06:30 Dose: 17 gm Potassium Chloride (K-Dur -) 20 meq PO DAILY [facility] Last Admin: 05/07/18 10:15 Dose: 20 meq - Objective Vital Signs: Vital Signs Temperature 98.5 F 05/08/18 05:50 Pulse Rate 102 H 05/08/18 05:50 Respiratory Rate 22 H 05/08/18 05:50 Blood Pressure 120/85 05/08/18 05:50 O2 Sat by Pulse Oximetry (%) 99 05/07/18 22:30 Constitutional: Yes: No Distress Cardiovascular: Yes: Regular Rate and Rhythm Respiratory: Yes: Other (rhonchi; no active wheezing.) Gastrointestinal: Yes: Soft Edema: Yes Edema: LLE: 1+, RLE: 1+ Labs: CBC, BMP 05/06/18 06:00 05/07/18 05:30 INR, PTT INR 1.24 (0.83-1.09) H 04/29/18 14:24 Problem List - Problems (1) Acute on chronic diastolic CHF (congestive heart failure) Code(s): I50.33 - ACUTE ON CHRONIC DIASTOLIC (CONGESTIVE) HEART FAILURE (2) Metastatic breast cancer Code(s): C50.919 - MALIGNANT NEOPLASM OF UNSP SITE OF UNSPECIFIED FEMALE BREAST (3) Pneumonia Code(s): J18.9 - PNEUMONIA, UNSPECIFIED ORGANISM Qualifiers: Pneumonia type: due to unspecified organism Laterality: right Lung location: lower lobe of lung Qualified Code(s): J18.1 - Lobar pneumonia, unspecified organism (4) Respiratory failure Code(s): J96.90 - RESPIRATORY FAILURE, UNSP, UNSP W HYPOXIA OR HYPERCAPNIA (5) Cerebral edema Code(s): G93.6 - CEREBRAL EDEMA Assessment/Plan IMP: Metastatic breast cancer Lung consolidations: PNA? vs mets Pleural effusions Acute on chronic diastolic CHF REC: 1. Clinically mildly improved: On PO Lasix 2. Supplimental O2, NIPPV 3. DVT prophylaxis as per PMD 4. Palliative care consult planned to define goals of care
[2018-05-08] MEDS ORDERED: PT OWN MED DRAWER 7, Y5N ONE (08:54)
[2018-05-08] MEDS: levETIRAcetam 500 MG TABLET (FP) PO SCH ×2 (09:04→23:19)
[2018-05-08] MEDS: POTASSIUM CHLORIDE TABS 20 MEQ TABLET.ER (FP) PO SCH (09:04)
[2018-05-08] MEDS: DOCUSATE SODIUM 100 MG CAPSULE (FP) PO SCH (09:04)
[2018-05-08] MEDS: PANTOPRAZOLE 40 MG TABLET (FP) PO SCH (09:04)
[2018-05-08] MEDS: FUROSEMIDE 40 MG TABLET (FP) PO SCH (09:04)
[2018-05-08] MEDS: DEXAMETHASONE 4 MG TABLET (FP) PO SCH ×2 (09:04→23:19)
[2018-05-08] MEDS: LIDOCAINE 5% TOPICAL PATCH TP SCH (09:05)
--- NOTE | 2018-05-08 16:03 | PN ---
Progress Note (short form) - Note Progress Note: Patient seen and examined Little change clinically Bedridden on BIPAP Denies significant pain ] Son at bedside Last Vital Signs Temp Pulse Resp BP Pulse Ox 98.6 F 107 H 24 H 97/72 100 05/08/18 14:26 05/08/18 14:26 05/08/18 14:26 05/08/18 14:26 05/08/18 14:16 Lungs - scattered rhonchi Cor _RSR Abd - soft Ext-SCD Impression : Advanced disease with respiratory failure Needs palliative care and GOC decided upon with family. Problem List - Problems (1) Acute on chronic diastolic CHF (congestive heart failure) Code(s): I50.33 - ACUTE ON CHRONIC DIASTOLIC (CONGESTIVE) HEART FAILURE (2) Metastatic breast cancer Code(s): C50.919 - MALIGNANT NEOPLASM OF UNSP SITE OF UNSPECIFIED FEMALE BREAST (3) Respiratory failure Code(s): J96.90 - RESPIRATORY FAILURE, UNSP, UNSP W HYPOXIA OR HYPERCAPNIA (4) Anemia Code(s): D64.9 - ANEMIA, UNSPECIFIED Qualifiers: Anemia type: unspecified type Qualified Code(s): D64.9 - Anemia, unspecified (5) Pneumonia Assessment/Plan: suspect pulmonary disease - metastatic now in nature. Code(s): J18.9 - PNEUMONIA, UNSPECIFIED ORGANISM Qualifiers: Pneumonia type: due to unspecified organism Laterality: right Lung location: lower lobe of lung Qualified Code(s): J18.1 - Lobar pneumonia, unspecified organism
--- NOTE | 2018-05-08 17:56 | PN ---
Progress Note, Physician History of Present Illness: lethargic more weak - Current Medication List Current Medications: Active Medications Acetaminophen (Tylenol -) 650 mg PO Q6H PRN PRN Reason: Fever Or Pain Last Admin: 05/08/18 14:20 Dose: 650 mg Alprazolam (Xanax -) 0.25 mg PO Q6H PRN PRN Reason: AGITATION Dexamethasone (Decadron -) 4 mg PO BID [facility] Last Admin: 05/08/18 09:04 Dose: 4 mg Docusate Sodium (Colace -) 300 mg PO DAILY [facility] Last Admin: 05/08/18 09:04 Dose: 300 mg Furosemide (Lasix -) 40 mg PO DAILY [facility] Last Admin: 05/08/18 09:04 Dose: 40 mg Insulin Aspart (Novolog Vial Sliding Scale -) 1 vial SQ [facility]; Protocol Last Admin: 05/08/18 10:56 Dose: 10 units Insulin Detemir (Levemir Vial) 35 units SQ BID@0700,2200 [facility] Last Admin: 05/08/18 06:31 Dose: 35 units Levetiracetam (Keppra -) 500 mg PO BID [facility] Last Admin: 05/08/18 09:04 Dose: 500 mg Levothyroxine Sodium (Synthroid -) 50 mcg PO DAILY@0700 [facility] Last Admin: 05/08/18 06:31 Dose: 50 mcg Lidocaine (Lidoderm Patch -) 1 patch TP DAILY [facility] Last Admin: 05/08/18 09:05 Dose: 1 patch Mirtazapine (Remeron -) 15 mg PO HS [facility] Last Admin: 05/07/18 23:05 Dose: 15 mg Miscellaneous (Lidoderm Patch Removal) 1 each MC DAILY@2200 [facility] Last Admin: 05/07/18 23:06 Dose: 1 each Morphine Sulfate (Morphine Sulfate) 2 mg IVPUSH Q6H PRN PRN Reason: PAIN LEVEL 6-10 Pantoprazole Sodium (Protonix -) 40 mg PO DAILY [facility] Last Admin: 05/08/18 09:04 Dose: 40 mg Polyethylene Glycol (Miralax (For Daily Use) -) 17 gm PO TID [facility] Last Admin: 05/08/18 15:10 Dose: Not Given Potassium Chloride (K-Dur -) 20 meq PO DAILY [facility] Last Admin: 05/08/18 09:04 Dose: 20 meq - Objective Vital Signs: Vital Signs Temperature 98.6 F 05/08/18 14:26 Pulse Rate 107 H 05/08/18 14:26 Respiratory Rate 24 H 05/08/18 14:26 Blood Pressure 97/72 05/08/18 14:26 O2 Sat by Pulse Oximetry (%) 100 05/08/18 14:16 Constitutional: Yes: Other Cardiovascular: Yes: Regular Rate and Rhythm Respiratory: Yes: On BiPap, On Nasal O2 Gastrointestinal: Yes: Normal Bowel Sounds, Soft Musculoskeletal: Yes: WNL Extremities: Yes: WNL Neurological: Yes: Alert Psychiatric: Yes: Alert Labs: CBC, BMP 05/06/18 06:00 05/07/18 05:30 INR, PTT INR 1.24 (0.83-1.09) H 04/29/18 14:24 Assessment/Plan Problem List - Problems (1) Pneumonia Code(s): J18.9 - PNEUMONIA, UNSPECIFIED ORGANISM Qualifiers: Pneumonia type: due to unspecified organism Laterality: right Lung location: lower lobe of lung Qualified Code(s): J18.1 - Lobar pneumonia, unspecified organism (2) Respiratory failure Code(s): J96.90 - RESPIRATORY FAILURE, UNSP, UNSP W HYPOXIA OR HYPERCAPNIA (3) Metastatic breast cancer Code(s): C50.919 - MALIGNANT NEOPLASM OF UNSP SITE OF UNSPECIFIED FEMALE BREAST (4) Diabetes Code(s): E11.9 - TYPE 2 DIABETES MELLITUS WITHOUT COMPLICATIONS Qualifiers: Diabetes mellitus type: type 2 Diabetes mellitus complication status: without complication (5) Hypertension Code(s): I10 - ESSENTIAL (PRIMARY) HYPERTENSION (6) Hypothyroidism Code(s): E03.9 - HYPOTHYROIDISM, UNSPECIFIED (7) Vasogenic cerebral edema Code(s): G93.6 - CEREBRAL EDEMA patient receive iv abx plan lethargic monitor closely resp support rest as per the team consider nutrition
[2018-05-08] MEDS ORDERED: INSULIN (NOVOLOG) ASPART 100 UNITS/ML 10ML VIAL SQ ONE (19:45)
--- NOTE | 2018-05-08 20:25 | PN ---
Progress Note, Physician - Current Medication List Current Medications: Active Medications Acetaminophen (Tylenol -) 650 mg PO Q6H PRN PRN Reason: Fever Or Pain Last Admin: 05/08/18 14:20 Dose: 650 mg Alprazolam (Xanax -) 0.25 mg PO Q6H PRN PRN Reason: AGITATION Last Admin: 05/08/18 18:52 Dose: 0.25 mg Dexamethasone (Decadron -) 4 mg PO BID [facility] Last Admin: 05/08/18 09:04 Dose: 4 mg Docusate Sodium (Colace -) 300 mg PO DAILY [facility] Last Admin: 05/08/18 09:04 Dose: 300 mg Furosemide (Lasix -) 40 mg PO DAILY [facility] Last Admin: 05/08/18 09:04 Dose: 40 mg Insulin Aspart (Novolog Vial Sliding Scale -) 1 vial SQ [facility]; Protocol Last Admin: 05/08/18 19:29 Dose: Not Given Insulin Detemir (Levemir Vial) 35 units SQ BID@0700,2200 [facility] Last Admin: 05/08/18 06:31 Dose: 35 units Levetiracetam (Keppra -) 500 mg PO BID [facility] Last Admin: 05/08/18 09:04 Dose: 500 mg Levothyroxine Sodium (Synthroid -) 50 mcg PO DAILY@0700 [facility] Last Admin: 05/08/18 06:31 Dose: 50 mcg Lidocaine (Lidoderm Patch -) 1 patch TP DAILY [facility] Last Admin: 05/08/18 09:05 Dose: 1 patch Mirtazapine (Remeron -) 15 mg PO HS [facility] Last Admin: 05/07/18 23:05 Dose: 15 mg Miscellaneous (Lidoderm Patch Removal) 1 each MC DAILY@2200 [facility] Last Admin: 05/07/18 23:06 Dose: 1 each Morphine Sulfate (Morphine Sulfate) 2 mg IVPUSH Q6H PRN PRN Reason: PAIN LEVEL 6-10 Pantoprazole Sodium (Protonix -) 40 mg PO DAILY [facility] Last Admin: 05/08/18 09:04 Dose: 40 mg Polyethylene Glycol (Miralax (For Daily Use) -) 17 gm PO TID [facility] Last Admin: 05/08/18 15:10 Dose: Not Given Potassium Chloride (K-Dur -) 20 meq PO DAILY [facility] Last Admin: 05/08/18 09:04 Dose: 20 meq - Objective Vital Signs: Vital Signs Temperature 98.6 F 05/08/18 14:26 Pulse Rate 107 H 05/08/18 14:26 Respiratory Rate 24 H 05/08/18 14:26 Blood Pressure 97/72 05/08/18 14:26 O2 Sat by Pulse Oximetry (%) 100 05/08/18 14:16 Labs: CBC, BMP 05/06/18 06:00 05/07/18 05:30 INR, PTT INR 1.24 (0.83-1.09) H 04/29/18 14:24 Problem List - Problems (1) Metastatic breast cancer Code(s): C50.919 - MALIGNANT NEOPLASM OF UNSP SITE OF UNSPECIFIED FEMALE BREAST (2) Pneumonia Code(s): J18.9 - PNEUMONIA, UNSPECIFIED ORGANISM Qualifiers: Pneumonia type: due to unspecified organism Laterality: right Lung location: lower lobe of lung Qualified Code(s): J18.1 - Lobar pneumonia, unspecified organism (3) Respiratory failure Code(s): J96.90 - RESPIRATORY FAILURE, UNSP, UNSP W HYPOXIA OR HYPERCAPNIA (4) Diabetes Code(s): E11.9 - TYPE 2 DIABETES MELLITUS WITHOUT COMPLICATIONS Qualifiers: Diabetes mellitus type: type 2 Diabetes mellitus complication status: without complication (5) Hypertension Code(s): I10 - ESSENTIAL (PRIMARY) HYPERTENSION (6) Hypothyroidism Code(s): E03.9 - HYPOTHYROIDISM, UNSPECIFIED (7) Vasogenic cerebral edema Code(s): G93.6 - CEREBRAL EDEMA (8) Seizure Code(s): R56.9 - UNSPECIFIED CONVULSIONS
[2018-05-08] MEDS: LIDOCAINE PATCH REMOVAL MC SCH (23:20)
[2018-05-08] MEDS: MIRTAZAPINE 15 MG TABLET (FP) PO SCH (23:27)
[2018-05-09] MEDS: MORPHINE SULFATE 2 MG/ML VIAL IVPUSH PRN ×3 (02:48→16:41)
[2018-05-09] MEDS: POLYETHYLENE GLYCOL 3350 119 GM BTL PO SCH ×3 (06:35→22:18)
[2018-05-09] MEDS: INSULIN SLIDING SCALE (NOVOLOG) 1 VIAL SQ SCH ×4 (06:38→22:21)
[2018-05-09] MEDS: LEVOTHYROXINE NA 50 MCG TABLET (FP) PO SCH (06:39)
[2018-05-09] MEDS ORDERED: INSULIN (NOVOLOG) ASPART 100 UNITS/ML 10ML VIAL ONE (06:54)
[2018-05-09] MEDS ORDERED: INSULIN (LEVEMIR) 100 UNITS/ML UNITS SQ ONE (06:55)
[2018-05-09] MEDS ORDERED: PT OWN MED DRAWER 7, Y5N ONE ×2 (06:55→20:57)
[2018-05-09] MEDS: levETIRAcetam 500 MG TABLET (FP) PO SCH ×2 (11:09→22:16)
[2018-05-09] MEDS: PANTOPRAZOLE 40 MG TABLET (FP) PO SCH (11:09)
[2018-05-09] MEDS: DOCUSATE SODIUM 100 MG CAPSULE (FP) PO SCH (11:09)
[2018-05-09] MEDS: POTASSIUM CHLORIDE TABS 20 MEQ TABLET.ER (FP) PO SCH (11:10)
[2018-05-09] MEDS: LIDOCAINE 5% TOPICAL PATCH TP SCH (11:10)
[2018-05-09] MEDS: DEXAMETHASONE 4 MG TABLET (FP) PO SCH ×2 (11:10→22:16)
[2018-05-09] MEDS: FUROSEMIDE 40 MG TABLET (FP) PO SCH (11:10)
--- NOTE | 2018-05-09 13:07 | PN ---
Progress Note, Physician History of Present Illness: lethargic very weak - Current Medication List Current Medications: Active Medications Acetaminophen (Tylenol -) 650 mg PO Q6H PRN PRN Reason: Fever Or Pain Last Admin: 05/08/18 14:20 Dose: 650 mg Alprazolam (Xanax -) 0.25 mg PO Q6H PRN PRN Reason: AGITATION Last Admin: 05/08/18 18:52 Dose: 0.25 mg Dexamethasone (Decadron -) 4 mg PO BID [facility] Last Admin: 05/09/18 11:10 Dose: 4 mg Docusate Sodium (Colace -) 300 mg PO DAILY [facility] Last Admin: 05/09/18 11:09 Dose: 300 mg Furosemide (Lasix -) 40 mg PO DAILY [facility] Last Admin: 05/09/18 11:10 Dose: 40 mg Insulin Aspart (Novolog Vial Sliding Scale -) 1 vial SQ ACHS [facility]; Protocol Last Admin: 05/09/18 12:16 Dose: Not Given Levetiracetam (Keppra -) 500 mg PO BID [facility] Last Admin: 05/09/18 11:09 Dose: 500 mg Levothyroxine Sodium (Synthroid -) 50 mcg PO DAILY@0700 [facility] Last Admin: 05/09/18 06:39 Dose: Not Given Lidocaine (Lidoderm Patch -) 1 patch TP DAILY [facility] Last Admin: 05/09/18 11:10 Dose: 1 patch Mirtazapine (Remeron -) 15 mg PO HS [facility] Last Admin: 05/08/18 23:27 Dose: Not Given Miscellaneous (Lidoderm Patch Removal) 1 each MC DAILY@2200 [facility] Last Admin: 05/08/18 23:20 Dose: 1 each Morphine Sulfate (Morphine Sulfate) 2 mg IVPUSH Q6H PRN PRN Reason: PAIN LEVEL 6-10 Last Admin: 05/09/18 11:06 Dose: 2 mg Pantoprazole Sodium (Protonix -) 40 mg PO DAILY [facility] Last Admin: 05/09/18 11:09 Dose: 40 mg Polyethylene Glycol (Miralax (For Daily Use) -) 17 gm PO TID [facility] Last Admin: 05/09/18 06:35 Dose: Not Given Potassium Chloride (K-Dur -) 20 meq PO DAILY [facility] Last Admin: 05/09/18 11:10 Dose: 20 meq - Objective Vital Signs: Vital Signs Temperature 97.6 F 05/09/18 06:00 Pulse Rate 94 H 05/09/18 06:00 Respiratory Rate 22 H 05/09/18 06:00 Blood Pressure 111/67 05/09/18 06:00 O2 Sat by Pulse Oximetry (%) 97 05/09/18 07:30 Constitutional: Yes: No Distress Cardiovascular: Yes: Regular Rate and Rhythm Respiratory: Yes: Regular, CTA Bilaterally, On Nasal O2 Gastrointestinal: Yes: Normal Bowel Sounds, Soft Musculoskeletal: Yes: WNL Extremities: Yes: WNL Neurological: Yes: Alert Psychiatric: Yes: Alert Labs: CBC, BMP 05/06/18 06:00 05/07/18 05:30 INR, PTT INR 1.24 (0.83-1.09) H 04/29/18 14:24 Assessment/Plan Problem List - Problems (1) Pneumonia Code(s): J18.9 - PNEUMONIA, UNSPECIFIED ORGANISM Qualifiers: Pneumonia type: due to unspecified organism Laterality: right Lung location: lower lobe of lung Qualified Code(s): J18.1 - Lobar pneumonia, unspecified organism (2) Respiratory failure Code(s): J96.90 - RESPIRATORY FAILURE, UNSP, UNSP W HYPOXIA OR HYPERCAPNIA (3) Metastatic breast cancer Code(s): C50.919 - MALIGNANT NEOPLASM OF UNSP SITE OF UNSPECIFIED FEMALE BREAST (4) Diabetes Code(s): E11.9 - TYPE 2 DIABETES MELLITUS WITHOUT COMPLICATIONS Qualifiers: Diabetes mellitus type: type 2 Diabetes mellitus complication status: without complication (5) Hypertension Code(s): I10 - ESSENTIAL (PRIMARY) HYPERTENSION (6) Hypothyroidism Code(s): E03.9 - HYPOTHYROIDISM, UNSPECIFIED (7) Vasogenic cerebral edema Code(s): G93.6 - CEREBRAL EDEMA patient receive iv abx plan lethargic monitor closely resp support rest as per the team
[2018-05-09] MEDS: ALPRAZolam 0.25 MG TABLET PO PRN ×2 (14:24→19:13)
--- NOTE | 2018-05-09 14:46 | PN ---
Progress Note, Physician History of Present Illness: PULMONARY AWAKE,ON NASAL O2,-RESP DISTRESS - Current Medication List Current Medications: Active Medications Acetaminophen (Tylenol -) 650 mg PO Q6H PRN PRN Reason: Fever Or Pain Last Admin: 05/08/18 14:20 Dose: 650 mg Alprazolam (Xanax -) 0.25 mg PO Q6H PRN PRN Reason: AGITATION Last Admin: 05/09/18 14:24 Dose: 0.25 mg Dexamethasone (Decadron -) 4 mg PO BID [facility] Last Admin: 05/09/18 11:10 Dose: 4 mg Docusate Sodium (Colace -) 300 mg PO DAILY [facility] Last Admin: 05/09/18 11:09 Dose: 300 mg Furosemide (Lasix -) 40 mg PO DAILY [facility] Last Admin: 05/09/18 11:10 Dose: 40 mg Insulin Aspart (Novolog Vial Sliding Scale -) 1 vial SQ ACHS [facility]; Protocol Last Admin: 05/09/18 12:16 Dose: Not Given Levetiracetam (Keppra -) 500 mg PO BID [facility] Last Admin: 05/09/18 11:09 Dose: 500 mg Levothyroxine Sodium (Synthroid -) 50 mcg PO DAILY@0700 [facility] Last Admin: 05/09/18 06:39 Dose: Not Given Lidocaine (Lidoderm Patch -) 1 patch TP DAILY [facility] Last Admin: 05/09/18 11:10 Dose: 1 patch Mirtazapine (Remeron -) 15 mg PO HS [facility] Last Admin: 05/08/18 23:27 Dose: Not Given Miscellaneous (Lidoderm Patch Removal) 1 each MC DAILY@2200 [facility] Last Admin: 05/08/18 23:20 Dose: 1 each Morphine Sulfate (Morphine Sulfate) 2 mg IVPUSH Q6H PRN PRN Reason: PAIN LEVEL 6-10 Last Admin: 05/09/18 11:06 Dose: 2 mg Pantoprazole Sodium (Protonix -) 40 mg PO DAILY [facility] Last Admin: 05/09/18 11:09 Dose: 40 mg Polyethylene Glycol (Miralax (For Daily Use) -) 17 gm PO TID [facility] Last Admin: 05/09/18 14:24 Dose: Not Given Potassium Chloride (K-Dur -) 20 meq PO DAILY [facility] Last Admin: 05/09/18 11:10 Dose: 20 meq - Objective Vital Signs: Vital Signs Temperature 97.2 F L 05/09/18 14:07 Pulse Rate 99 H 05/09/18 14:07 Respiratory Rate 20 05/09/18 14:07 Blood Pressure 103/66 05/09/18 14:07 O2 Sat by Pulse Oximetry (%) 100 05/09/18 11:30 Constitutional: Yes: Well Nourished, Calm Eyes: Yes: WNL HENT: Yes: WNL Neck: Yes: WNL Cardiovascular: Yes: Regular Rate and Rhythm, S1, S2 Respiratory: Yes: Rhonchi (SCATTERED JOSE RAMON RHONCHI) Gastrointestinal: Yes: Normal Bowel Sounds, Soft Extremities: Yes: WNL Edema: Yes Labs: CBC, BMP Assessment/Plan Problem List - Problems (1) Acute on chronic diastolic CHF (congestive heart failure) Code(s): I50.33 - ACUTE ON CHRONIC DIASTOLIC (CONGESTIVE) HEART FAILURE (2) Metastatic breast cancer Code(s): C50.919 - MALIGNANT NEOPLASM OF UNSP SITE OF UNSPECIFIED FEMALE BREAST (3) Pneumonia Code(s): J18.9 - PNEUMONIA, UNSPECIFIED ORGANISM Qualifiers: Pneumonia type: due to unspecified organism Laterality: right Lung location: lower lobe of lung Qualified Code(s): J18.1 - Lobar pneumonia, unspecified organism (4) Anemia Code(s): D64.9 - ANEMIA, UNSPECIFIED Qualifiers: Anemia type: unspecified type Qualified Code(s): D64.9 - Anemia, unspecified (5) Back pain Code(s): M54.9 - DORSALGIA, UNSPECIFIED Qualifiers: Back pain location: back pain in other location Chronicity: chronic Qualified Code(s): M54.9 - Dorsalgia, unspecified; G89.29 - Other chronic pain (6) Breast CA Code(s): C50.919 - MALIGNANT NEOPLASM OF UNSP SITE OF UNSPECIFIED FEMALE BREAST Qualifiers: Breast location: overlapping sites of breast Laterality: right (7) Diabetes Code(s): E11.9 - TYPE 2 DIABETES MELLITUS WITHOUT COMPLICATIONS Qualifiers: Diabetes mellitus type: type 2 Diabetes mellitus complication status: without complication (8) Generalized weakness Code(s): R53.1 - WEAKNESS (9) Hypertension Code(s): I10 - ESSENTIAL (PRIMARY) HYPERTENSION (10) Hypothyroidism Code(s): E03.9 - HYPOTHYROIDISM, UNSPECIFIED (11) Intracranial mass Code(s): R90.0 - INTCRN SPACE-OCCUPYING LESION FOUND ON DX IMAGING OF CNSL Assessment/Plan Lasix ABX as per ID O2 as needed to maintain saturation BD TX PRN NIPPV as needed Daily weight Analgesics decadron chest x-ray prognosis poor DR COLLINS
--- NOTE | 2018-05-09 16:38 | PN ---
Progress Note (short form) - Note Progress Note: Patient seen and examined Spoke with daughter at bedside who thought patient had improved as she was not on BIPAP Patient has bee referred to hospice Complaints of intermittent pains Last Vital Signs Temp Pulse Resp BP Pulse Ox 97.2 F L 99 H 20 103/66 100 05/09/18 14:07 05/09/18 14:07 05/09/18 14:07 05/09/18 14:07 05/09/18 11:30 Lungs - scattered rhonchi and upper respiratory sounds Cor-RSR Soft abd Ext- neg CBC, BMP 05/06/18 06:00 05/07/18 05:30 Current Medications Generic Name Dose Route Start Last Admin Trade Name Freq PRN Reason Stop Dose Admin Acetaminophen 650 mg 05/01/18 08:25 05/08/18 14:20 Tylenol - PO 650 mg Q6H PRN Administration Fever Or Pain Alprazolam 0.25 mg 05/08/18 10:13 05/09/18 14:24 Xanax - PO 0.25 mg Q6H PRN Administration AGITATION Dexamethasone 4 mg 05/07/18 10:00 05/09/18 11:10 Decadron - PO 4 mg BID JD Administration Docusate Sodium 300 mg 05/01/18 10:00 05/09/18 11:09 Colace - PO 300 mg DAILY JD Administration Furosemide 40 mg 05/06/18 10:00 05/09/18 11:10 Lasix - PO 40 mg DAILY JD Administration Insulin Aspart 1 vial 05/01/18 11:00 05/09/18 12:16 Novolog Vial Sliding Scale - SQ Not Given ACHS JD Protocol Levetiracetam 500 mg 05/07/18 10:00 05/09/18 11:09 Keppra - PO 500 mg BID JD Administration Levothyroxine Sodium 50 mcg 05/02/18 07:00 05/09/18 06:39 Synthroid - PO Not Given DAILY@0700 JD Lidocaine 1 patch 05/01/18 10:00 05/09/18 11:10 Lidoderm Patch - TP 1 patch DAILY JD Administration Mirtazapine 15 mg 05/01/18 22:00 05/08/18 23:27 Remeron - PO Not Given HS JD Miscellaneous 1 each 05/01/18 22:00 05/08/18 23:20 Lidoderm Patch Removal MC 1 each DAILY@2200 JD Administration Morphine Sulfate 2 mg 05/08/18 14:58 05/09/18 11:06 Morphine Sulfate IVPUSH 2 mg Q6H PRN Administration PAIN LEVEL 6-10 Pantoprazole Sodium 40 mg 05/01/18 10:00 05/09/18 11:09 Protonix - PO 40 mg DAILY JD Administration Polyethylene Glycol 17 gm 05/01/18 14:00 05/09/18 14:24 Miralax (For Daily Use) - PO Not Given TID JD Potassium Chloride 20 meq 05/01/18 10:00 05/09/18 11:10 K-Dur - PO 20 meq DAILY JD Administration Impression : Respiratory distress pain control Metastatic breast ca Seems to be in more pain Getting relief with morphine May require morphine drip Hospice evaluation. Problem List - Problems (1) Acute on chronic diastolic CHF (congestive heart failure) Code(s): I50.33 - ACUTE ON CHRONIC DIASTOLIC (CONGESTIVE) HEART FAILURE (2) Metastatic breast cancer Code(s): C50.919 - MALIGNANT NEOPLASM OF UNSP SITE OF UNSPECIFIED FEMALE BREAST (3) Respiratory failure Code(s): J96.90 - RESPIRATORY FAILURE, UNSP, UNSP W HYPOXIA OR HYPERCAPNIA (4) Anemia Code(s): D64.9 - ANEMIA, UNSPECIFIED Qualifiers: Anemia type: unspecified type Qualified Code(s): D64.9 - Anemia, unspecified (5) Pneumonia Code(s): J18.9 - PNEUMONIA, UNSPECIFIED ORGANISM Qualifiers: Pneumonia type: due to unspecified organism Laterality: right Lung location: lower lobe of lung Qualified Code(s): J18.1 - Lobar pneumonia, unspecified organism
[2018-05-09] MEDS ORDERED: MORPHINE SULFATE 2 MG/ML VIAL IVPUSH PRN (16:52)
--- NOTE | 2018-05-09 17:57 | PN ---
Progress Note (short form) - Note Progress Note: Patient seen and examined. Lethargic - unable to participate much in history taking. Afebrile/Hemodynamically Stable with orderline BP. On BIPAP 04/27/40%. Last Vital Signs Temp Pulse Resp BP Pulse Ox 97.2 F L 99 H 20 103/66 100 05/09/18 14:07 05/09/18 14:07 05/09/18 14:07 05/09/18 14:07 05/09/18 11:30 Neuro - Drowsy, confused, babbling. Appears comfortable on BiPAP. HEENT - ORALIA. Atraumatic. On BiPAP. Heart - S1, S2, RRR Lungs - coarse breath sounds bilaterally, no crackles Abdomen - Mildly distended, non-tender. Bowel Sounds normal. Extremities - no swelling Laboratory Results - last 24 hr 05/08/18 05/08/18 05/09/18 18:29 22:44 06:37 POC Glucometer 338 249 181 05/09/18 05/09/18 11:15 17:19 POC Glucometer 141 340 Current Medications Generic Name Dose Route Start Last Admin Trade Name Freq PRN Reason Stop Dose Admin Acetaminophen 650 mg 05/01/18 08:25 05/08/18 14:20 Tylenol - PO 650 mg Q6H PRN Administration Fever Or Pain Alprazolam 0.25 mg 05/08/18 10:13 05/09/18 14:24 Xanax - PO 0.25 mg Q6H PRN Administration AGITATION Dexamethasone 4 mg 05/07/18 10:00 05/09/18 11:10 Decadron - PO 4 mg BID JD Administration Docusate Sodium 300 mg 05/01/18 10:00 05/09/18 11:09 Colace - PO 300 mg DAILY JD Administration Furosemide 40 mg 05/06/18 10:00 05/09/18 11:10 Lasix - PO 40 mg DAILY JD Administration Insulin Aspart 1 vial 05/01/18 11:00 05/09/18 12:16 Novolog Vial Sliding Scale - SQ Not Given ACHS JD Protocol Levetiracetam 500 mg 05/07/18 10:00 05/09/18 11:09 Keppra - PO 500 mg BID JD Administration Levothyroxine Sodium 50 mcg 05/02/18 07:00 05/09/18 06:39 Synthroid - PO Not Given DAILY@0700 JD Lidocaine 1 patch 05/01/18 10:00 05/09/18 11:10 Lidoderm Patch - TP 1 patch DAILY JD Administration Mirtazapine 15 mg 05/01/18 22:00 05/08/18 23:27 Remeron - PO Not Given HS JD Miscellaneous 1 each 05/01/18 22:00 05/08/18 23:20 Lidoderm Patch Removal MC 1 each DAILY@2200 JD Administration Morphine Sulfate 2 mg 05/09/18 16:52 Morphine Sulfate IVPUSH Q4H PRN PAIN LEVEL 4 - 6 Pantoprazole Sodium 40 mg 05/01/18 10:00 05/09/18 11:09 Protonix - PO 40 mg DAILY JD Administration Polyethylene Glycol 17 gm 05/01/18 14:00 05/09/18 14:24 Miralax (For Daily Use) - PO Not Given TID JD Potassium Chloride 20 meq 05/01/18 10:00 05/09/18 11:10 K-Dur - PO 20 meq DAILY JD Administration ASSESSMENT/PLAN 57 year old female with Metastatic Breast Ca (to lung, liver, brain) s/p stereotactic brain RTx, s/p R Parietal craniotomy for cerebral edema (2104), DM 2, HTN, Chronic Diastolic CHF, COPD on 3L home O2, admitted with Respiratory Failure due to metastatic disease and CHF. Currently requiring respiratory support with BiPAP with poor mental status. DNR/DNI. For Palliative Care and Hospice evaluation. 1. Breast Cancer with mets to Brain, Lung and Liver s/p sterotactic RTx and R partial craniotomy for cerebral edema. On Keppra. Palliative Care consulted. For eval for hospice Supportive Care with analgesia and comfort measures. Pain management with Morphine Sulfate. 2. Acute respiratory Failure sec to Lung Mets and superimposed acute on chronic diastolic CHF On decadron and Lasix. resp support with BiPAP For Hospice eval. completed Abx therapy for suspected Pneumonia. 3. Hypothyroidism - on Synthroid. Patient will require medication rationalization given change in goals of care and shift to a palliative approach. DNR/DNI Visit type - Emergency Visit Emergency Visit: Yes ED Registration Date: 04/29/18 Care time: The patient presented to the Emergency Department on the above date and was hospitalized for further evaluation of their emergent condition. - New Patient This patient is new to me today: Yes Date on this admission: 05/09/18 - Critical Care Critical Care patient: No - Discharge Referral Referred to [facility] Med [facility].: No
[2018-05-09] MEDS: ACETAMINOPHEN 325 MG TABLET (FP) PO PRN (19:13)
--- NOTE | 2018-05-09 19:17 | PN ---
Progress Note (short form) - Note Progress Note: increased pain reported by nurses, to begin morphine drip.
[2018-05-09] MEDS ORDERED: MORPHINE 100 MG in SODIUM CHLORIDE 98 ML IVPB SCH (19:45)
[2018-05-09] MEDS: MIRTAZAPINE 15 MG TABLET (FP) PO SCH (22:16)
[2018-05-09] MEDS: LIDOCAINE PATCH REMOVAL MC SCH (22:18)
[2018-05-10] MEDS: POLYETHYLENE GLYCOL 3350 119 GM BTL PO SCH ×2 (06:11→15:30)
[2018-05-10] MEDS: LEVOTHYROXINE NA 50 MCG TABLET (FP) PO SCH (06:11)
[2018-05-10] MEDS: INSULIN SLIDING SCALE (NOVOLOG) 1 VIAL SQ SCH ×2 (06:15→10:57)
[2018-05-10] MEDS ORDERED: PT OWN MED DRAWER 7, Y5N ONE (10:12)
--- NOTE | 2018-05-10 10:47 | PN ---
Progress Note (short form) - Note Progress Note: PULMONARY Lethargic, tachypneic on BiPAP. On morphine gtt. Vital Signs Period Temp Pulse Resp BP Sys/Agarwal Pulse Ox Last 24 Hr 97.2 F-98.9 F 66-106 18-22 98-117/49-87 91-100 Gen: tachypneic, lethargic on BiPAP Heart: RRR Lung: bilateral rhonchi Abd: soft, nontender Ext: + edema CBC, BMP 05/06/18 06:00 05/07/18 05:30 Active Medications Acetaminophen (Tylenol -) 650 mg PO Q6H PRN PRN Reason: Fever Or Pain Last Admin: 05/09/18 19:13 Dose: 650 mg Alprazolam (Xanax -) 0.25 mg PO Q6H PRN PRN Reason: AGITATION Last Admin: 05/09/18 19:13 Dose: 0.25 mg Dexamethasone (Decadron -) 4 mg PO BID [facility] Last Admin: 05/09/18 22:16 Dose: Not Given Docusate Sodium (Colace -) 300 mg PO DAILY [facility] Last Admin: 05/09/18 11:09 Dose: 300 mg Furosemide (Lasix -) 40 mg PO DAILY [facility] Last Admin: 05/09/18 11:10 Dose: 40 mg Morphine Sulfate 100 mg/ (Sodium Chloride) 100 mls @ 1 mls/hr IVPB TITR [facility]; Protocol Last Admin: 05/09/18 21:15 Dose: 1 mg/hr, 1 mls/hr Insulin Aspart (Novolog Vial Sliding Scale -) 1 vial SQ ACHS [facility]; Protocol Last Admin: 05/10/18 06:15 Dose: 4 units Levetiracetam (Keppra -) 500 mg PO BID [facility] Last Admin: 05/09/18 22:16 Dose: Not Given Levothyroxine Sodium (Synthroid -) 50 mcg PO DAILY@0700 [facility] Last Admin: 05/10/18 06:11 Dose: Not Given Lidocaine (Lidoderm Patch -) 1 patch TP DAILY [facility] Last Admin: 05/09/18 11:10 Dose: 1 patch Mirtazapine (Remeron -) 15 mg PO HS [facility] Last Admin: 05/09/18 22:16 Dose: Not Given Miscellaneous (Lidoderm Patch Removal) 1 each MC DAILY@2200 [facility] Last Admin: 05/09/18 22:18 Dose: 1 each Pantoprazole Sodium (Protonix -) 40 mg PO DAILY [facility] Last Admin: 05/09/18 11:09 Dose: 40 mg Polyethylene Glycol (Miralax (For Daily Use) -) 17 gm PO TID [facility] Last Admin: 05/10/18 06:11 Dose: Not Given Potassium Chloride (K-Dur -) 20 meq PO DAILY [facility] Last Admin: 05/09/18 11:10 Dose: 20 meq A/P Acute on Chronic Hypoxic Respiratory Failure Acute on Chronic Diastolic Heart Failure Metastatic Breast Ca to lung, liver, brain HTN DM COPD - continue supportive care - would titrate morphine gtt to RR <25 - BiPAP if for comfort - pt DNR/DNI
[2018-05-10] MEDS: levETIRAcetam 500 MG TABLET (FP) PO SCH (10:51)
[2018-05-10] MEDS: FUROSEMIDE 40 MG TABLET (FP) PO SCH (10:51)
[2018-05-10] MEDS: DEXAMETHASONE 4 MG TABLET (FP) PO SCH (10:51)
[2018-05-10] MEDS: POTASSIUM CHLORIDE TABS 20 MEQ TABLET.ER (FP) PO SCH (10:51)
[2018-05-10] MEDS: DOCUSATE SODIUM 100 MG CAPSULE (FP) PO SCH (10:51)
[2018-05-10] MEDS: LIDOCAINE 5% TOPICAL PATCH TP SCH (10:52)
[2018-05-10] MEDS: PANTOPRAZOLE 40 MG TABLET (FP) PO SCH (10:52)
--- NOTE | 2018-05-10 13:46 | PN ---
Progress Note, Physician History of Present Illness: lethargic on morphine - Current Medication List Current Medications: Active Medications Acetaminophen (Tylenol -) 650 mg PO Q6H PRN PRN Reason: Fever Or Pain Last Admin: 05/09/18 19:13 Dose: 650 mg Alprazolam (Xanax -) 0.25 mg PO Q6H PRN PRN Reason: AGITATION Last Admin: 05/09/18 19:13 Dose: 0.25 mg Dexamethasone (Decadron -) 4 mg PO BID [facility] Last Admin: 05/10/18 10:51 Dose: Not Given Docusate Sodium (Colace -) 300 mg PO DAILY [facility] Last Admin: 05/10/18 10:51 Dose: Not Given Furosemide (Lasix -) 40 mg PO DAILY [facility] Last Admin: 05/10/18 10:51 Dose: Not Given Morphine Sulfate 100 mg/ (Sodium Chloride) 100 mls @ 1 mls/hr IVPB TITR [facility]; Protocol Last Titration: 05/10/18 09:30 Dose: 2 mg/hr, 2 mls/hr Insulin Aspart (Novolog Vial Sliding Scale -) 1 vial SQ ACHS [facility]; Protocol Last Admin: 05/10/18 10:57 Dose: Not Given Levetiracetam (Keppra -) 500 mg PO BID [facility] Last Admin: 05/10/18 10:51 Dose: Not Given Levothyroxine Sodium (Synthroid -) 50 mcg PO DAILY@0700 [facility] Last Admin: 05/10/18 06:11 Dose: Not Given Lidocaine (Lidoderm Patch -) 1 patch TP DAILY [facility] Last Admin: 05/10/18 10:52 Dose: Not Given Mirtazapine (Remeron -) 15 mg PO HS [facility] Last Admin: 05/09/18 22:16 Dose: Not Given Miscellaneous (Lidoderm Patch Removal) 1 each MC DAILY@2200 [facility] Last Admin: 05/09/18 22:18 Dose: 1 each Pantoprazole Sodium (Protonix -) 40 mg PO DAILY [facility] Last Admin: 05/10/18 10:52 Dose: Not Given Polyethylene Glycol (Miralax (For Daily Use) -) 17 gm PO TID [facility] Last Admin: 05/10/18 06:11 Dose: Not Given Potassium Chloride (K-Dur -) 20 meq PO DAILY [facility] Last Admin: 12/20/18 10:51 Dose: Not Given - Objective Vital Signs: Vital Signs Temperature 98.4 F 05/10/18 10:00 Pulse Rate 66 05/10/18 09:00 Respiratory Rate 22 H 05/10/18 09:00 Blood Pressure 98/49 L 05/10/18 09:00 O2 Sat by Pulse Oximetry (%) 90 L 05/10/18 11:24 Constitutional: Yes: Other Cardiovascular: Yes: Regular Rate and Rhythm Respiratory: Yes: Regular, On BiPap Gastrointestinal: Yes: Normal Bowel Sounds, Soft Neurological: Yes: Other Labs: CBC, BMP 05/06/18 06:00 05/07/18 05:30 INR, PTT INR 1.24 (0.83-1.09) H 04/29/18 14:24 Assessment/Plan Problem List - Problems (1) Pneumonia Code(s): J18.9 - PNEUMONIA, UNSPECIFIED ORGANISM Qualifiers: Pneumonia type: due to unspecified organism Laterality: right Lung location: lower lobe of lung Qualified Code(s): J18.1 - Lobar pneumonia, unspecified organism (2) Respiratory failure Code(s): J96.90 - RESPIRATORY FAILURE, UNSP, UNSP W HYPOXIA OR HYPERCAPNIA (3) Metastatic breast cancer Code(s): C50.919 - MALIGNANT NEOPLASM OF UNSP SITE OF UNSPECIFIED FEMALE BREAST (4) Diabetes Code(s): E11.9 - TYPE 2 DIABETES MELLITUS WITHOUT COMPLICATIONS Qualifiers: Diabetes mellitus type: type 2 Diabetes mellitus complication status: without complication (5) Hypertension Code(s): I10 - ESSENTIAL (PRIMARY) HYPERTENSION (6) Hypothyroidism Code(s): E03.9 - HYPOTHYROIDISM, UNSPECIFIED (7) Vasogenic cerebral edema Code(s): G93.6 - CEREBRAL EDEMA patient receive iv abx plan lethargic monitor closely resp support rest as per the team
[2018-05-10 17:31] VITALS: BP 120/50; PULSE 46
[2018-05-10 18:19] VITALS: TEMP 100.1
--- NOTE | 2018-05-10 19:31 | PN ---
Progress Note (short form) - Note Progress Note: This is a NOTE Ms. Misael Maciel was a 57yo F who suffered from metastatic breast ca put on comfort measures today. Nursing staff paged me to examine pt. Pt is unresponsive , even to painful stimuli. Pupils are fixed and nonreactive. Pt has no spontaneous breathing, no heart or lung sounds via auscultation. No carotid or femoral pulses are present. Time of 19:21 on 05/10/2018. Family at bedside is aware and notified at time of Grievance services offered to family Body to be released to services of family's choice Primary physician notified.
== END 2018-05-10 19:21 | disposition expired | DRG 180 ==
LOC: JER 13:14 → JERBED 17:27 → UNDOADMIN 17:52 → J5S 04-30 16:43 → J4W 04-30 22:19 → J7W 05-07 17:24
PROVIDERS: ADMIT Internal Medicine; ATTEND Internal Medicine
DX: C78.00 Secondary malignant neoplasm of unspecified lung (principal); J18.9 Pneumonia, unspecified organism; G93.6 Cerebral edema; J96.21 Acute and chronic respiratory failure with hypoxia; I50.33 Acute on chronic diastolic (congestive) heart failure; E87.2 Acidosis; C78.7 Secondary malignant neoplasm of liver and intrahepatic bile duct; C79.31 Secondary malignant neoplasm of brain; J90 Pleural effusion, not elsewhere classified; C50.919 Malignant neoplasm of unspecified site of unspecified female breast; E11.9 Type 2 diabetes mellitus without complications; E03.9 Hypothyroidism, unspecified; I11.0 Hypertensive heart disease with heart failure; J44.9 Chronic obstructive pulmonary disease, unspecified; D64.9 Anemia, unspecified; R56.9 Unspecified convulsions; E66.9 Obesity, unspecified; Z68.35 Body mass index [BMI] 35.0-35.9, adult
CPT/HCPCS: 36415; 36600; 71045-TC-FY; 71250-TC; 80048; 80053; 82550; 82553; 82803; 82962; 83605; 83735; 83880; 84443; 84484; 85025; 85610; 87040; 87804; 93005; 93010; 93306-TC; 93970-TC; 94640; 94660; 99285-25; J0131; J1644